=== PATIENT | female | born 1970 | race Caucasian/White ===

== ENCOUNTER 2017-12-29 20:46 | Inpatient (IN) | payer OTHER ==
--- OUTSIDE RECORDS SUMMARY | 2017-12-29 20:48 | XMS REPORT | Clinical Summary ---
:1970 Author Organization [facility] Address [address] [place] [address] Care Team Providers Name Role Phone Nomi Olea MD Primary Care Provider Allergies Active Allergy Reactions Severity Noted Date Comments Acetaminophen 04/16/2016 Celecoxib Anaphylaxis High 04/16/2016 Cephalosporins Shortness Of Breath High 04/16/2016 Cyclosporine Hives 04/16/2016 Divalproex Palpitations Low 04/16/2016 Levetiracetam Rash Low 04/16/2016 Lorazepam Anxiety Low 04/16/2016 Metoclopramide Other (See Comments) 04/16/2016 Morphine Shortness Of Breath High 04/16/2016 Oxycodone-Acetaminophen Hives 04/16/2016 Penicillins Anaphylaxis High 04/16/2016 Tetracycline Hives 04/16/2016 Tizanidine Anaphylaxis High 04/16/2016 Tramadol Shortness Of Breath High 04/16/2016 Current Medications Prescription Sig. Disp. Refills Start Date End Date Status PROAIR HFA 90 INHALE TWO (2) 1 03/10/2016 Active mcg/actuation inhaler PUFF(S) BY MOUTH EVERY FOUR HOURS NEEDED FOR WHEEZING, COUGHING OR SHORTNESS OF BREATH. clonAZEPAM (KlonoPIN) 1 TAKE ONE (1) 5 03/10/2016 Active MG tablet TABLET(S) BY MOUTH FOUR TIMES A DAY. esomeprazole (NexIUM) 40 Take 40 mg by mouth 5 03/10/2016 Active MG capsule 2 (two) times a day. potassium chloride Take 40 mEq by mouth Active (K-DUR) 20 MEQ CR tablet daily. dicyclomine (BENTYL) 10 Take 10 mg by mouth Active MG capsule 4 (four) times a day before meals and nightly. carisoprodol (SOMA) 350 Take 525 mg by mouth Active MG tablet 4 (four) times a day as needed for muscle spasms. HYDROcodone-acetaminophe Take 1 tablet by Active n (NORCO) 5-325 mg per mouth every 4 (four) tablet hours as needed for moderate pain. fluconazole (DIFLUCAN) Take 150 mg by mouth Active 100 MG tablet daily. Active Problems Problem Noted Date Hyponatremia 04/16/2016 Social History Tobacco Use Types Packs/Day Years Used Date Never Smoker Alcohol Use Drinks/Week oz/Week Comments No Sex Assigned at Date Recorded Not on file Last Filed Vital Signs Not on file Plan of Treatment Not on file Results Not on fileafter 12/28/2016 Insurance Payer Benefit Plan / Group Subscriber ID Type Phone Address [facility] CHOICE/CHOICE + xxxxxxxxx HMO/PPO Home: [address] [place], [place] [phone] [place] [id number]
--- OUTSIDE RECORDS SUMMARY | 2017-12-29 20:49 | XMS REPORT | Summary of Care ---
:1970 Author Name URIAH GRIMM M.D. Address Unavailable Unavailable , Care Team Providers Name Role Phone SIRISHA Beasley, URIAH Unavailable Unavailable Bev John M.A. Unavailable Unavailable SIRISHA [place], URIAH [place] Unavailable Unavailable Unavailable Unavailable Unavailable Functional Status Name Dates Details Functional status health issues are not documented Status: Name Dates Details Cognitive status health issues are not documented Status: Problems Name Dates Details Muscle spasm (728.85, M62.838) Status: Active Fungal infection (117.9, B49) Status: Active Asthma (493.90, J45.909) Status: Active Low grade fever (780.60, R50.9) Status: Active Cough in adult (786.2, R05) Status: Active Altered mental status (780.97, R41.82) Status: Active Abdominal tenderness (789.60, R10.819) Status: Active Chest pain (786.50, R07.9) Status: Active Rib pain (786.50, R07.81) Status: Active Blood loss (459.0, R58) Status: Active Joint pain (719.40, M25.50) Status: Active Abnormal weight gain (783.1, R63.5) Status: Active Hypothyroid (244.9, E03.9) Status: Active Abnormal laboratory test (796.4, R89.9) Status: Active Sinus infection (473.9, J32.9) Status: Active Medications Name Dates Details Carisoprodol 350 MG Oral Tablet 1 and 1/2 tab PO Q6hr Quantity: 84 Refills: 0 URIAH GRIMM M.D. Start : 06-Sep-2016 Active Nystatin 803914 UNIT/ML Mouth/Throat Suspension SWISH AND SPIT 5ML EVERY 12 HOURS . Quantity: 1 Refills: 0 URIAH GRIMM M.D. Start : 15-Sep-2016 Active 60 ML Bottle Advair Diskus 100-50 MCG/DOSE Inhalation Aerosol Powder Breath Activated INHALE 1 PUFF TWICE DAILY. Quantity: 1 Refills: 3 ARSENIO GRIMM M.D.AN Start : 13-Oct-2016 Active 60 Inhaler Pack Fluconazole 150 MG Oral Tablet TAKE 1 TABLET BY MOUTH ONE TIME ONLY Quantity: 3 Refills: 3 SIRISHA Beasley, URIAH Start : 13-Oct-2016 Active Diflucan 150 MG Oral Tablet TAKE 1 TABLET DAILY. Quantity: 10 Refills: 0 URIAH GRIMM M.D. Start : 18-Oct-2016 Active Fluconazole 150 MG Oral Tablet TAKE 1 TABLET 1 TIME ONLY. Quantity: 3 Refills: 1 SIRISHA Beasley, URIAH Start : 17-Nov-2016 Active ProAir HFA 108 (90 Base) MCG/ACT Inhalation Aerosol Solution INHALE 1 PUFF EVERY 4 HOURS NEEDED. Quantity: 3 Refills: 3 URIAH GRIMM M.D. Start : 23-Feb-2017 Active 8.5 GM Inhaler LevoFLOXacin 500 MG Oral Tablet TAKE 1 TABLET DAILY DIRECTED. Quantity: 10 Refills: 0 URIAH GRIMM M.D. Start : 23-Feb-2017 Active Ciprofloxacin HCl - 500 MG Oral Tablet TAKE 1 TABLET TWICE DAILY. Quantity: 10 Refills: 0 URIAH GRIMM M.D. Start : 19-Jun-2017 Active Lidocaine Viscous 2 % Mouth/Throat Solution USE 5ML EVERY 2 HOURS NEEDED. Quantity: 1 Refills: 0 URIAH GRIMM M.D. Start : 18-Oct-2017 Active 15 ML Bottle Allergies and Adverse Reactions Name Dates Details Penicillins (Allergy) Status: Active sulfa (Allergy) Status: Active Procedures Procedure Dates Details Procedures not documented Immunization Name Dates Details Immunizations not documented Social History Name Dates Details Unknown if ever smoked Vital Signs Date Test Result Details No Known Vitals to report Results Date Description Value Details Results not documented Plan of Care Name Dates Details Planned Observations Planned Goals not documented Interventions Provided Medication ChangesCarisoprodol 350 MG Oral Tablet - Renew Instructions Name Dates Details Instructions not documented Encounters Appointment; URIAH GRIMM M.D. On: 21-Aug-2016 16:00 Encounter Diagnosis: Problem not documented Appointment; URIAH GRIMM M.D. On: 03-Nov-2016 14:30 Encounter Diagnosis: Problem not documented Appointment; URIAH GRIMM M.D. On: 01-Jan-2017 16:00 Encounter Diagnosis: Problem not documented Appointment; URIAH GRIMM M.D. On: 05-Mar-2017 16:00 Encounter Diagnosis: Problem not documented Appointment; URIAH GRIMM M.D. On: 21-May-2017 15:30 Encounter Diagnosis: Problem not documented Appointment; URIAH GRIMM M.D. On: 20-Jun-2017 11:30 Encounter Diagnosis: Problem not documented Appointment; URIAH GRIMM M.D. On: 03-Aug-2017 14:30 Encounter Diagnosis: Problem not documented
[2017-12-29] MEDS ORDERED: ONDANSETRON 4 MG/2 ML VIAL ONE (22:11)
[2017-12-29 22:17] LABS: Absolute Lymphocytes (CBC) 3.4 K/uL (0.7-4.9); Absolute Monocytes 0.7 K/uL (0.1-1.3); Basophils % 1.4 % (0-1.3); Hematocrit 35.1 % (36.0-45.0); Lymphocytes % 36.7 % (15.3-44.8); MCH 28.1 pg (27.0-35.0); MCV 85.8 fL (80-100); MPV 7.4 fL (7.6-11.3); Monocytes % 7.2 % (3.3-12.3); RBC Red Blood Cell Count 4.09 M/uL (3.86-4.86)
[2017-12-29 22:23] LABS: Protime INR 0.93
[2017-12-29 22:35] LABS: Anisocytosis 1+; Blood Morphology Comment NOTED (NOT SEEN); Platelet Estimate ADEQ; Urine White Blood Cell Casts OK
[2017-12-29 23:17] LABS: Glucose Level 81 mg/dL (65-120)
[2017-12-29 23:23] LABS: ALT/SGPT 40 IU/L (10-60); AST/SGOT 30 IU/L (10-42); Albumin 3.4 g/dL (3.2-5.5); Alkaline Phosphatase 58 IU/L (42-121); BUN Blood Urea Nitrogen 8 mg/dL (6-20); Bilirubin Direct 0.2 mg/dL (0-0.2); Bilirubin Total 0.5 mg/dL (0.3-1.2); Creatine Phosphokinase 51 IU/L (22-269); Magnesium 1.6 mg/dL (1.8-2.5); Protein, Total 5.9 g/dL (6.0-8.3)
[2017-12-29 23:24] LABS: Bicarbonate 19 mEq/L (21-31); CKMB Creatine Kinase MB 0.8 ng/ml (0.3-4.0); Potassium 3.3 mEq/L (3.6-5.0); Sodium Level 120 mEq/L (135-145)
--- NOTE | 2017-12-30 00:33 | EDPHYS ---
Physician Documentation [facility] Name: Lianne Medina Age: 47 yrs Sex: Female : 1970 Arrival Date: 12/29/2017 Time: 20:52 Bed 19 Private MD: ED Physician Chandler Gastelum HPI: 12/31 01:07 This 47 yrs old Female presents to ER via Wheelchair with complaints of tw4 Fever, Nausea/Vomiting/Diarrhea. 01:07 The patient reports fever, not measured (subjective). Onset: The symptoms/episode tw4 began/occurred yesterday. Modifying factors: there are no obvious modifying factors. Associated signs and symptoms: Pertinent positives: altered mental status,\E\ arthralgias. Severity of symptoms: At their worst the symptoms were moderate in the emergency department the symptoms are unchanged. The patient has not experienced similar symptoms in the past. 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-menopause tl3 Historical: - Allergies: 21:17 ACETAMINOPHEN; tl3 21:17 Celecoxib; tl3 21:17 cyclobenzaprine HCl; tl3 21:17 CYCLOSPORINE; tl3 21:17 divalproex; tl3 21:17 levetiracetam; tl3 21:17 Lorazepam; tl3 21:17 METOCLOPRAMIDE; tl3 21:17 NSAIDS (Non-Steroidal Anti-Inflammatory Drug); tl3 21:17 Oxycodone HCl; tl3 21:17 PENICILLINS; tl3 21:17 Sulfa (Sulfonamide Antibiotics); tl3 21:17 TETRACYCLINES; tl3 21:17 Tizanidine; tl3 21:17 tramadol; tl3 - Home Meds: 21:17 Nexium Oral [Active]; Soma Oral [Active]; Hydrocodone-Acetaminophen Oral [Active]; tl3 - PMHx: 21:17 brain tumor x 5; Cancer; Multiple Sclerosis; prolapsed bladder; tl3 - Immunization history:: Adult Immunizations up to date. - Social history:: Smoking status: Patient/guardian denies using tobacco, never smoked. - Ebola Screening: : Patient denies travel to an Ebola-affected area in the 21 days before illness onset. ROS: 12/31 01:07 Constitutional: Negative for fever, chills, and weight loss, Cardiovascular: Negative tw4 for chest pain, palpitations, and edema, Respiratory: Negative for shortness of breath, cough, wheezing, and pleuritic chest pain, MS/Extremity: Negative for injury and deformity, Skin: Negative for injury, rash, and discoloration. Abdomen/GI: Positive for abdominal pain, nausea, vomiting, diarrhea. Exam: 01:07 Constitutional: This is a well developed, well nourished patient who is awake, alert, tw4 and in no acute distress. Head/Face: Normocephalic, atraumatic. Chest/axilla: Normal chest wall appearance and motion. Nontender with no deformity. No lesions are appreciated. Cardiovascular: Regular rate and rhythm with a normal S1 and S2. No gallops, murmurs, or rubs. Normal PMI, no JVD. No pulse deficits. Respiratory: Lungs have equal breath sounds bilaterally, clear to auscultation and percussion. No rales, rhonchi or wheezes noted. No increased work of breathing, no retractions or nasal flaring. Abdomen/GI: Soft, non-tender, with normal bowel sounds. No distension or tympany. No guarding or rebound. No evidence of tenderness throughout. MS/ Extremity: Pulses equal, no cyanosis. Neurovascular intact. Full, normal range of motion. Neuro: Awake and alert, GCS 15, oriented to person, place, time, and situation. Cranial nerves II-XII grossly intact. Motor strength 5/5 in all extremities. Sensory grossly intact. Cerebellar exam normal. Normal gait. Vital Signs: 12/29 21:17 BP 128 / 87; Pulse 91; Resp 20; Temp 97.7(T); Pulse Ox 90% ; Weight 90.72 kg; Height 4 tl3 ft. 11 in. (149.86 cm); 23:00 BP 136 / 88; Pulse 64; Resp 20; Pulse Ox 93% on R/A; mb3 12/30 00:30 BP 120 / 83; Pulse 66; Resp 20; Pulse Ox 91% on R/A; mb3 02:07 BP 101 / 62; Pulse 62; Resp 20; Pulse Ox 93% on R/A; mb3 12/29 21:17 Body Mass Index 40.39 (90.72 kg, 149.86 cm) tl3 MDM: 12/29 21:44 Patient medically screened. tw4 12/31 01:07 Differential diagnosis: viral Infection, bacterial infection, URI. Data reviewed: vital tw4 signs, nurses notes. Counseling: I had a detailed discussion with the patient and/or guardian regarding: the historical points, exam findings, and any diagnostic results supporting the discharge/admit diagnosis. Physician consultation: Alberta Reed MD regarding admission, patient's condition, need to come to ED to see patient, and will see patient in inpatient room. Admission orders: after a detailed discussion of the patient's condition and case, the admit orders are written by me. ED course: pt received IVF hydration and states that he feels better. 12/29 21:55 Order name: Basic Metabolic Panel; Complete Time: 23:52 12/29 23:52 Interpretation: Normal except: NA 120; CL 93; CO2 19; K 3.3; CA 7.4. 12/29 21:55 Order name: BNP; Complete Time: 23:07 12/29 23:07 Interpretation: BNP 16. 12/29 21:55 Order name: CBC with Diff; Complete Time: 23:07 12/29 23:07 Interpretation: HGB 11.5; MCV 85.8; HCT 35.1; BASO% 1.4; MPV 7.4; RDW 21.3. 12/29 21:55 Order name: Ckmb; Complete Time: 23:52 12/29 21:55 Order name: CPK; Complete Time: 23:52 12/29 21:55 Order name: LFT's; Complete Time: 23:52 12/29 23:52 Interpretation: Normal except: TP 5.9. 12/29 21:55 Order name: Magnesium; Complete Time: 23:52 12/29 21:55 Order name: PT-INR; Complete Time: 23:07 12/29 23:53 Interpretation: Within normal limits: PT 11.0. 12/29 21:55 Order name: Ptt, Activated; Complete Time: 23:07 12/29 21:55 Order name: Troponin (emerg Dept Use Only); Complete Time: 23:52 12/29 21:55 Order name: XRAY Chest (1 view) 12/29 21:55 Order name: D-Dimer; Complete Time: 23:07 rust 12/29 23:53 Interpretation: Within normal limits: D-DIMER 279. tw4 12/29 22:35 Order name: CBC Smear Scan; Complete Time: 23:07 [facility] 12/30 00:16 Order name: Urine Dipstick--Ancillary (enter results) mo 12/29 21:55 Order name: EKG; Complete Time: 21:56 rust 12/29 21:55 Order name: Cardiac monitoring; Complete Time: 00:40 rust 12/29 21:55 Order name: EKG - Nurse/Tech; Complete Time: 00:40 tw 12/29 21:55 Order name: IV Saline Lock; Complete Time: 00:40 rust 12/29 21:55 Order name: Labs collected and sent; Complete Time: 00:40 rust 12/29 21:55 Order name: O2 Per Protocol; Complete Time: 00:40 rust 12/29 21:55 Order name: O2 Sat Monitoring; Complete Time: 00:40 rust 12/29 21:55 Order name: Urine Dipstick-Ancillary (obtain specimen); Complete Time: 00:40 rust 12/29 21:58 Order name: CT Chest For PE Angio tw4 Administered Medications: 12/29 22:13 Drug: Zofran 4 mg Route: IVP; Site: left antecubital; mb3 Disposition: 12/30/17 00:32 Hospitalization ordered by Alberta Reed for Inpatient Admission. Preliminary diagnosis is Hypo-osmolality and hyponatremia. - Bed requested for Telemetry/MedSurg (Inpatient). - Status is Inpatient Admission. mb3 - Condition is Stable. - Problem is new. - Symptoms have improved. UTI on Admission? No Signatures: Dispatcher [employer] EDCO Shelly Wilcox RN RN kl Wadley, Terrence, MD MD tw4 Edilma Abbasi RN RN tl3 Jozef Madrid RN RN mb3 Corrections: (The following items were deleted from the chart) 23:52 23:52 NA 120; CL 93; CO2 19; K 3.3; CA 7.4. 4 12/30 01:58 00:32 Hospitalization Ordered by Alberta Reed MD for Inpatient Admission. Preliminary kl diagnosis is Hypo-osmolality and hyponatremia. Bed requested for Telemetry/MedSurg (Inpatient). Status is Inpatient Admission. Condition is Stable. Problem is new. Symptoms have improved. UTI on Admission? No. tw4 02:33 01:58 12/30/2017 00:32 Hospitalization Ordered by Alberta Reed MD for Inpatient mb3 Admission. Preliminary diagnosis is Hypo-osmolality and hyponatremia. Bed requested for Telemetry/MedSurg (Inpatient). Status is Inpatient Admission. Condition is Stable. Problem is new. Symptoms have improved. UTI on Admission? No. kl
--- NOTE | 2017-12-30 00:33 | ER ---
Nurse's Notes [facility] Name: Lianne Medina Age: 47 yrs Sex: Female : 1970 Arrival Date: 12/29/2017 Time: 20:52 Bed 19 Private MD: Diagnosis: Hypo-osmolality and hyponatremia Presentation: 12/29 21:13 Presenting complaint: Patient states: vomiting and diarrhea for one week, decreased tl3 tolerance of foods or liquids, decreased urine output. Transition of care: patient was not received from another setting of care. Onset of symptoms was December 23, 2017. Risk Assessment: Do you want to hurt yourself or someone else? Patient reports no desire to harm self or others. Initial Sepsis Screen: Does the patient meet any 2 criteria? No. Patient's initial sepsis screen is negative. Does the patient have a suspected source of infection? No. Patient's initial sepsis screen is negative. Care prior to arrival: None. 21:13 Method Of Arrival: Wheelchair tl3 21:13 Acuity: BRANDEN 3 tl3 Triage Assessment: 21:17 General: Appears distressed, uncomfortable, unkempt, Behavior is cooperative. 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-menopause tl3 Historical: - Allergies: 21:17 ACETAMINOPHEN; tl3 21:17 Celecoxib; tl3 21:17 cyclobenzaprine HCl; tl3 21:17 CYCLOSPORINE; tl3 21:17 divalproex; tl3 21:17 levetiracetam; tl3 21:17 Lorazepam; tl3 21:17 METOCLOPRAMIDE; tl3 21:17 NSAIDS (Non-Steroidal Anti-Inflammatory Drug); tl3 21:17 Oxycodone HCl; tl3 21:17 PENICILLINS; tl3 21:17 Sulfa (Sulfonamide Antibiotics); tl3 21:17 TETRACYCLINES; tl3 21:17 Tizanidine; tl3 21:17 tramadol; tl3 - Home Meds: 21:17 Nexium Oral [Active]; Soma Oral [Active]; Hydrocodone-Acetaminophen Oral [Active]; tl3 - PMHx: 21:17 brain tumor x 5; Cancer; Multiple Sclerosis; prolapsed bladder; tl3 - Immunization history:: Adult Immunizations up to date. - Social history:: Smoking status: Patient/guardian denies using tobacco, never smoked. - Ebola Screening: : Patient denies travel to an Ebola-affected area in the 21 days before illness onset. Screenin:54 Abuse screen: Denies threats or abuse. Nutritional screening: No deficits noted. mb3 Tuberculosis screening: No symptoms or risk factors identified. Fall Risk Fall in past 12 months (25 points). Secondary diagnosis (15 points) IV access (20 points). Ambulatory Aid- Crutches/Cane/Walker (15 pts). Gait- Impaired (20 pts.). Mental Status- Overestimates/Forgets Limitations (15 pts.). Total Reyes Fall Scale indicates High Risk Score (45 or more points). Fall prevention measures have been instituted. Side Rails Up X 2 Placed Close to Nursing Station Frequent Obs/Assessments Occuring Family Present and informed to notify staff if the need to leave the bedside. Assessment: 23:37 General: Appears uncomfortable, ill, obese, Behavior is cooperative, anxious, mb3 scattered. Pain: Complains of pain in initially did not report any pain, after assessment started complaining of pain all over, especially her back from lesions in her cranial nerves. Neuro: Level of Consciousness is awake, alert, confused, Oriented to person, place, time, situation. Cardiovascular: Heart tones S1 S2 present Capillary refill < 3 seconds Patient's skin is warm and dry. Respiratory: Airway is patent Respiratory effort is even, unlabored, shallow, Respiratory pattern is regular, symmetrical, Breath sounds are clear bilaterally. GI: Abdomen is round Pt is actively vomiting clear fluid, Bowel sounds hyperactive in right upper quadrant, left upper quadrant, right lower quadrant and left lower quadrant Abdomen is tender to palpation X 4 quads. : Reports urine smelling very strong. 12/30 00:50 Reassessment: No changes from previously documented assessment. Patient and/or family mb3 updated on plan of care and expected duration. Pain level reassessed. Patient is alert, oriented x 3, equal unlabored respirations, skin warm/dry/pink. Patient states symptoms have not improved. 00:50 Reassessment:. mb3 Vital Signs: 12/29 21:17 BP 128 / 87; Pulse 91; Resp 20; Temp 97.7(T); Pulse Ox 90% ; Weight 90.72 kg; Height 4 tl3 ft. 11 in. (149.86 cm); 23:00 BP 136 / 88; Pulse 64; Resp 20; Pulse Ox 93% on R/A; mb3 12/30 00:30 BP 120 / 83; Pulse 66; Resp 20; Pulse Ox 91% on R/A; mb3 02:07 BP 101 / 62; Pulse 62; Resp 20; Pulse Ox 93% on R/A; mb3 12/29 21:17 Body Mass Index 40.39 (90.72 kg, 149.86 cm) tl3 ED Course: 12/29 20:52 Patient arrived in ED. al2 21:16 Triage completed. tl3 21:17 Arm band placed on left wrist. tl3 21:44 Chandler Leung MD is Attending Physician. tw4 21:51 Jozef Madrid, VITA is Primary Nurse. mb3 22:14 X-ray completed. Portable x-ray completed in exam room. Patient tolerated procedure mh1 well. 22:15 Note: ok to scan w/o labs or upt per dr leung. cw1 22:16 XRAY Chest (1 view) In Process Unspecified. EDMS 22:38 CT Chest For PE Angio In Process Unspecified. EDMS 23:00 Inserted saline lock: 22 gauge in left antecubital area, using aseptic technique. Blood mb3 collected. 23:45 Patient has correct armband on for positive identification. Placed in gown. Bed in low mb3 position. Call light in reach. Side rails up X 1. chemical process engineer on. Pulse ox on. NIBP on. 12/30 00:31 Alberta Reed MD is Hospitalizing Provider. tw4 02:08 No provider procedures requiring assistance completed. mb3 02:15 Patient admitted, IV remains in place. mb3 Administered Medications: 12/29 22:13 Drug: Zofran 4 mg Route: IVP; Site: left antecubital; mb3 Outcome: 12/30 00:32 Decision to Hospitalize by Provider. tw4 02:09 Admitted to Med/surg accompanied by carolynn, via stretcher, room 203, with chart, Report mb3 called to Felipe Felder RN 02:10 Condition: stable mb3 02:10 Instructed on the need for admit. 02:33 Patient left the ED. mb3 Signatures: Dispatcher [employer] EDMS Maria Del Rosario Novoa mh1 Sol Angeles cw1 Vickie Malhotra al2 Chandler Leung MD MD tw4 Edilma Abbasi, RN RN tl3 Jozef Madrid RN RN mb3
[2017-12-30 00:40] LABS: Urine Blood NEGATIVE (NEG); Urine Glucose TRACE (NEG); Urine Protein NEGATIVE (NEG); Urine Specific Gravity 1.015 (1.005-1.030)
--- NOTE | 2017-12-30 01:32 | P.HP ---
Certification for Inpatient Patient admitted to: Inpatient With expected LOS: >2 Midnights Practitioner: I am a practitioner with admitting privileges, knowledge of patient current condition, hospital course, and medical plan of care. Services: Services provided to patient in accordance with Admission requirements found in Title 42 Section 412.3 of the Code of Federal Regulations Patient History Date of Service: 12/30/17 Reason for admission: hyponatremia, nausea and vomiting History of Present Illness: Ms Medina is a 47 years old woman with history of MS, hyponatremia, who came to the hospital complaining of nausea, vomiting and diarrhea for 1 week. She is very difficult to do a directed interview and realize what exactly are her current symptoms and when do they start. She states that has fever every day due to MS, and has not been different lately. In ER she was hypoxic, O2 Sat 90% . She had a CTA chest which was negative for PE or any infiltrate. Lab work was again remarkable for hyponatremia, at this time sodium level is 120, she is also hypokalemic. Allergies cyclobenzaprine HCl [From Flexeril] Allergy (Intermediate, Verified 09/29/16 18: 12) sob NSAIDS (Non-Steroidal Anti-Inflamma Allergy (Intermediate, Verified 09/29/16 18: 12) sob, edema Sulfa (Sulfonamide Antibiotics) [Sulfa(Sulfonamide Antibiotics)] Allergy ( Intermediate, Verified 09/29/16 18:12) anaphalxis tramadol HCl [From Ultram] Allergy (Intermediate, Verified 09/29/16 18:12) hives, sob Penicillins Allergy (Mild, Verified 09/29/16 18:12) anaphalxis tetracycline [Tetracycline] Allergy (Mild, Verified 09/29/16 18:12) anaphalyxis acetaminophen Allergy (Verified 09/29/16 18:13) Unknown celecoxib Allergy (Verified 09/29/16 18:13) Unknown levetiracetam Allergy (Verified 09/29/16 18:13) Unknown lorazepam Allergy (Verified 09/29/16 18:13) Unknown morphine Allergy (Verified 09/29/16 18:13) Unknown Tetracyclines Allergy (Verified 09/29/16 18:13) Unknown tizanidine Allergy (Verified 09/29/16 18:13) Unknown tramadol Allergy (Verified 09/29/16 18:13) Unknown CY Allergy (Mild, Uncoded 08/21/17 18:23) Unknown Tramadol HCl Allergy (Mild, Uncoded 09/29/16 19:10) Unknown CYCLO Allergy (Uncoded 09/29/16 19:10) Unknown CYCLOS Allergy (Uncoded 09/29/16 18:13) Unknown CYCLOSPORINE Allergy (Uncoded 09/29/16 18:13) Unknown divalproex Allergy (Uncoded 09/29/16 18:13) Unknown levetiraceta Allergy (Uncoded 09/29/16 18:13) Unknown METOCLOPRAMIDE Allergy (Uncoded 09/29/16 18:13) Unknown mo Allergy (Uncoded 09/29/16 18:12) Unknown NSAIDS (Non Allergy (Uncoded 09/29/16 18:12) Unknown NSAIDS (Non-S Allergy (Uncoded 09/29/16 18:12) Unknown NSAIDS (Non-Steroi Allergy (Uncoded 09/29/16 19:10) Unknown Oxycodone HCl Allergy (Uncoded 09/29/16 18:12) Unknown Tramadol HC Allergy (Uncoded 09/29/16 18:12) Unknown Home Medications: Albuterol Sulfate [Proair Hfa] 8.5 gm IH Q6H 09/29/16 Carisoprodol [Soma*] 350 mg PO Q6H 09/29/16 Clonazepam [Klonopin*] 1 mg PO QID 09/29/16 Esomeprazole Magnesium 40 mg PO DAILY 09/29/16 Fluconazole [Diflucan] 150 mg PO DAILY 09/29/16 Fluticasone/Salmeterol [Advair 100/50 Diskus*] 2 disk XX BID 09/29/16 Nitrofurantoin Monohyd/M-Cryst [Nitrofurantoin Page-Mcr 100 mg] 100 mg PO BID Nystatin 5 ml PO Q12H 09/29/16 Promethazine HCl 25 mg PO Q6H PRN 09/29/16 Levofloxacin [Levaquin] 500 mg PO DAILY #10 tab 10/01/16 - Past Medical/Surgical History Diabetic: No -: cancer -: prlapsed bladder -: brain tumor x 5 -: MS Past Surgical History: Reviewed- Non-Contributory - Family History Father -: Hypertension Mother -: Other (see notes) Notes: thyroid problems - Social History Alcohol use: No CD- Drugs: No Caffeine use: No Place of Residence: Home Review of Systems 10-point ROS is otherwise unremarkable Physical Examination - Physical Exam General: Alert, In no apparent distress HEENT: Atraumatic, PERRLA, Mucous membr. moist/pink, EOMI, Sclerae nonicteric Neck: Supple, 2+ carotid pulse no bruit, No LAD, Without JVD or thyroid abnormality Respiratory: Clear to auscultation bilaterally, Normal air movement Cardiovascular: Regular rate/rhythm, Normal S1 S2 Gastrointestinal: Normal bowel sounds, No tenderness Musculoskeletal: No tenderness Integumentary: No rashes Neurological: Normal speech, Normal strength at 5/5 x4 extr, Normal tone, Normal affect Lymphatics: No axilla or inguinal lymphadenopathy - Studies Laboratory Data (last 24 hrs) 12/29/17 22:49: Sodium 120 L, Potassium 3.3 L, BUN 8, Creatinine 0.56, Glucose 81, Magnesium 1.6 L D, Total Bilirubin 0.5, AST 30, ALT 40, Alkaline Phosphatase 58 12/29/17 22:05: PT 11.0, INR 0.93, APTT 26.0 12/29/17 22:05: WBC 9.3, Hgb 11.5 L, Hct 35.1 L, Plt Count 243 12/29/17 22:05: B-Natriuretic Peptide 16 Assessment and Plan - Problems (Diagnosis) (1) Hyponatremia Current Visit: Yes Status: Acute (2) Diarrhea Current Visit: Yes Status: Acute Qualifiers: Diarrhea type: unspecified type Qualified Code(s): R19.7 - Diarrhea, unspecified (3) Gastroenteritis Current Visit: Yes Status: Acute - Plan Ms Medina will be admitted to the hospital due to gastroenteritis. She is symptomatic for nausea, dry heaves and diarrhea. Will check C.Diff. Will continue with IV fluids, and symptomatic medications for nausea. Hyponatremia is not new, will order serum and urine osmolality, will consult Nephrology for evaluation and recommendations. - Advance Directives Does patient have a Living Will: No Does patient have a Durable POA for Healthcare: No - Code Status/Comfort Care Code Status Assessed: Yes Code Status: Full Code
[2017-12-30] MEDS ORDERED: MORPHINE 2 MG/ML SYR IV PRN (02:03)
[2017-12-30] MEDS ORDERED: ONDANSETRON 4 MG/2 ML VIAL IV PRN (02:03)
[2017-12-30] MEDS ORDERED: ACETAMINOPHEN 500 MG TAB PO PRN (02:03)
[2017-12-30] MEDS: NA CHLORIDE 0.9% 1,000 ML IV SCH ×2 (02:40→11:33)
[2017-12-30] MEDS ORDERED: Morphine 2 MG/2 ML SYR ONE (02:53)
[2017-12-30 04:41] VITALS: BMI 38.0
[2017-12-30 05:34] LABS: BUN Blood Urea Nitrogen 7 mg/dL (6-20); Glucose Level 97 mg/dL (65-120); Magnesium 1.8 mg/dL (1.8-2.5)
[2017-12-30 05:36] LABS: Bicarbonate 24 mEq/L (21-31); Potassium 3.4 mEq/L (3.6-5.0); Sodium Level 120 mEq/L (135-145)
[2017-12-30] MEDS ORDERED: MAGNESIUM SULFATE 1 gm IVPB 1 GM/100 ML BAG IV ONE (06:18)
[2017-12-30] MEDS ORDERED: POTASSIUM 25 MEQ EFFERV TAB PO ONE (06:19)
[2017-12-30] MEDS ORDERED: Morphine 2 MG/2 ML SYR IV PRN (08:02)
[2017-12-30] MEDS ORDERED: ENOXAPARIN 40 MG/0.4 ML SQ SCH (09:00)
--- NOTE | 2017-12-30 09:13 | RAD REPORT ---
EXAM DESCRIPTION: CT - Chest For Pe Angio - 12/29/2017 10:38 pm CLINICAL HISTORY: sob COMPARISON: None. TECHNIQUE: Dynamically enhanced axial 3 mm thick images of the chest were obtained during administra tion of <100> mL Isovue 370 IV contrast. Coronal and oblique reconstruction images were generated and reviewed. Exam utilizes a protocol for optimal evaluation of pulmonary arterial tree. A preliminary report was generated by virtual radiologic and reviewed prior to this dictation tissue All CT scans are performed using dose optimization technique as appropriate and may include automated exposure control or mA/KV adjustment according to patient size. FINDINGS: A pulmonary embolus is not seen. A thoracic aortic aneurysm is not noted. A pleural effusion is not seen. A pericardial effusion is not seen. A lung consolidation is not present. IMPRESSION: Negative for a pulmonary embolism.
[2017-12-30 09:51] VITALS: O2SAT 89
--- NOTE | 2017-12-30 10:20 | RAD REPORT ---
EXAM DESCRIPTION: [place] Single View12/29/2017 10:16 pm CLINICAL HISTORY: sob COMPARISON: September 2016 FINDINGS: The lungs appear clear of acute infiltrate. The heart is normal size IMPRESSION: No acute abnormalities displayed
[2017-12-30] MEDS ORDERED: HYDROCODONE/APAP 5/325 MG TAB PO PRN (10:53)
[2017-12-30 12:17] LABS: BUN Blood Urea Nitrogen 6 mg/dL (6-20); Bicarbonate 25 mEq/L (21-31); Glucose Level 111 mg/dL (65-120); Potassium 4.2 mEq/L (3.6-5.0); Sodium Level 122 mEq/L (135-145)
[2017-12-30 14:21] VITALS: BP 117/70; TEMP 97.6
[2017-12-30 15:00] LABS: Urine Appearance CLOUDY; Urine Blood NEGATIVE (NEG); Urine Color OTHER; Urine Glucose NEGATIVE (NEG); Urine Protein NEGATIVE (NEG); Urine Specific Gravity 1.025 (1.005-1.030)
[2017-12-30 15:18] LABS: Urine Bilirubin NEGATIVE (NEG); Urine Microscopic Reflex ORDER UMIC
[2017-12-30 15:26] LABS: Urine Amorphous Sediment 1+ /HPF (NONE SEEN); Urine Bacteria >50 /HPF (<20); Urine Culture Reflex Order REFLEXED; Urine RBC <5 /HPF (NONE SEEN)
== END 2017-12-30 15:06 | disposition home or self-care (01) | DRG 392 ==
LOC: ER 20:46 → ERHOLD 12-30 00:34 → 2ND 12-30 02:10
PROVIDERS: ADMIT Internal Medicine; ATTEND Internal Medicine
DX: K52.9 Noninfective gastroenteritis and colitis, unspecified (principal); E87.1 Hypo-osmolality and hyponatremia; E87.6 Hypokalemia; G35 Multiple sclerosis; Z88.0 Allergy status to penicillin; Z88.2 Allergy status to sulfonamides
CPT/HCPCS: 36415; 71045; 71275; 80048; 80076; 81003; 81015; 82550; 82553; 82962; 83735; 83880; 83930; 83935; 84484; 85025; 85379; 85610; 85730; 87077; 87086; 87088; 87186; 96374; 99285; J1650; J2270; J2405; J3475; J7030; Q9967

== ENCOUNTER 2018-04-03 00:15 | Observation (INO) | payer OTHER ==
--- OUTSIDE RECORDS SUMMARY | 2018-04-03 00:17 | XMS REPORT | Clinical Summary ---
:1970 Author Organization [facility] Address [address] [place] [address] Care Team Providers Name Role Phone Nomi [...] Not on file Results Not on fileafter 04/02/2017 Insurance Payer Benefit Plan / Group Subscriber ID Type Phone Address [facility] CHOICE/CHOICE + xxxxxxxxx HMO/PPO Home: [address] [place], [place] [phone] [place] [id number]
--- OUTSIDE RECORDS SUMMARY | 2018-04-03 00:17 | XMS REPORT | Summary of Care ---
:1970 Author Name URIAH GRIMM M.D. Address Unavailable Unavailable , Care Team Providers Name Role Phone SIRISHA Beasley, URIAH Unavailable Unavailable Bev John M.A. Unavailable Unavailable SIRISHA [place], URIAH [place] Unavailable Unavailable Unavailable Unavailable Unavailable [...] Active Sinus infection (473.9, J32.9) Status: Active Throat symptom (784.99, R68.89) Status: Active Medications Name Dates Details Carisoprodol 350 MG Oral Tablet 1 and 1/2 tab PO Q6hr Quantity: 84 Refills: 0 URIAH GRIMM M.D. Start : 06-Sep-2016 Active Nystatin 241317 UNIT/ML Mouth/Throat Suspension SWISH AND SPIT 5ML EVERY 12 HOURS . Quantity: 1 Refills: 0 URIAH GRIMM M.D. Start : 15-Sep-2016 Active 60 ML Bottle Advair Diskus 100-50 MCG/DOSE Inhalation Aerosol Powder Breath Activated INHALE 1 PUFF TWICE DAILY. Quantity: 1 Refills: 3 URIAH GRIMM M.D. Start : 13-Oct-2016 Active 14 Each Pack Fluconazole 150 MG Oral Tablet TAKE 1 TABLET BY MOUTH ONE TIME ONLY Quantity: 3 Refills: 3 SIRISHA Beasley, URIAH Start : 13-Oct-2016 Active Diflucan 150 MG Oral Tablet TAKE 1 TABLET DAILY. Quantity: 10 Refills: 0 URIAH GRIMM M.D. Start : 18-Oct-2016 Active Fluconazole 150 MG Oral Tablet TAKE 1 TABLET 1 TIME ONLY. Quantity: 3 Refills: 1 URIAH GRIMM M.D. Start : 17-Nov-2016 Active ProAir HFA 108 (90 Base) MCG/ACT Inhalation Aerosol Solution INHALE 1 PUFF EVERY 4 HOURS NEEDED. Quantity: 3 Refills: 3 URIAH GRIMM M.D. Start : 23-Feb-2017 Active 8.5 GM Inhaler LevoFLOXacin 500 MG Oral Tablet TAKE 1 TABLET DAILY DIRECTED. Quantity: 7 Refills: 0 URIAH GRIMM M.D. Start : [...]
[2018-04-03] MEDS ORDERED: NA CHLORIDE 0.9% 1,000 ML ONE (00:42)
[2018-04-03] MEDS ORDERED: ONDANSETRON 4 MG/2 ML VIAL ONE ×2 (00:42→04:30)
[2018-04-03] MEDS ORDERED: PROMETHAZINE 25 MG/ML VIAL ONE ×2 (01:22→03:29)
[2018-04-03 01:28] LABS: ALT/SGPT 71 U/L (12-78); AST/SGOT 46 U/L (15-37); Albumin 4.3 g/dL (3.4-5.0); Alkaline Phosphatase 114 U/L (45-117); BUN Blood Urea Nitrogen 7 mg/dL (7-18); Bicarbonate 21 mmol/L (21-32); Bilirubin Direct 0.2 mg/dL (0-0.2); Bilirubin Total 0.6 mg/dL (0.2-1.0); Glucose Level 99 mg/dL (74-106); Lipase 119 U/L (73-393); Potassium 4.1 mmol/L (3.5-5.1); Protein, Total 8.5 g/dL (6.4-8.2); Sodium Level 127 mmol/L (136-145)
[2018-04-03 01:30] LABS: Absolute Lymphocytes (CBC) 1.3 K/uL (0.7-4.9); Absolute Monocytes 0.5 K/uL (0.1-1.3); Absolute Neutrophil 7.2 K/uL (1.8-8.0); Basophils % 0.4 % (0-1.3); Eosinophils % 0.1 % (0-4.4); Hematocrit 43.6 % (36.0-45.0); Lymphocytes % 14.2 % (15.3-44.8); MCH 31.1 pg (27.0-35.0); MCV 93.5 fL (80-100); MPV 8.1 fL (7.6-11.3); Monocytes % 5.4 % (3.3-12.3); RBC Red Blood Cell Count 4.66 M/uL (3.86-4.86)
[2018-04-03] MEDS ORDERED: MEPERIDINE HCL 50 MG/ML AMP ONE (02:28)
[2018-04-03 03:43] LABS: Urine Bacteria <20 /HPF (<20); Urine Culture Reflex Order REFLEXED
[2018-04-03 03:44] LABS: Urine Blood TRACE (NEG); Urine Glucose NEGATIVE (NEG); Urine Protein NEGATIVE (NEG); Urine Specific Gravity <1.005 (1.005-1.030); Urine pH 6.5 (5.0-7.0)
[2018-04-03] MEDS ORDERED: NITROFURAN MACRO 100 MG CAP PO ONE (04:30)
--- NOTE | 2018-04-03 05:00 | ER ---
Nurse's Notes [facility] Name: Lianne Medina Age: 47 yrs Sex: Female : 1970 Arrival Date: 04/03/2018 Time: 00:19 Bed 20 Private MD: Diagnosis: Vomiting;Urinary tract infection, site not specified;Intractable vomiting Presentation: 04/03 00:45 Presenting complaint: Patient states: Vomiting and diarrhea x 3 days, states feeling lp1 pain to right shoulder; Patient states unable to tolerating food or liquid, states feeling like neck is swollen, pain to upper abdomen. Transition of care: patient was not received from another setting of care. Onset of symptoms was April 03, 2018. Risk Assessment: Do you want to hurt yourself or someone else? Patient reports no desire to harm self or others. Initial Sepsis Screen: Does the patient meet any 2 criteria? No. Patient's initial sepsis screen is negative. Does the patient have a suspected source of infection? No. Patient's initial sepsis screen is negative. Care prior to arrival: None. 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 LMP N/A - Post-menopause lp1 Historical: - Allergies: 00:58 ACETAMINOPHEN; lp1 00:58 Celecoxib; lp1 00:58 cyclobenzaprine HCl; lp1 00:58 CYCLOSPORINE; lp1 00:58 divalproex; lp1 00:58 levetiracetam; lp1 00:58 Lorazepam; lp1 00:58 METOCLOPRAMIDE; lp1 00:58 NSAIDS (Non-Steroidal Anti-Inflammatory Drug); lp1 00:58 Oxycodone HCl; lp1 00:58 PENICILLINS; lp1 00:58 Sulfa (Sulfonamide Antibiotics); lp1 00:58 TETRACYCLINES; lp1 00:58 Tizanidine; lp1 00:58 tramadol; lp1 01:02 Fentanyl; lp1 - Home Meds: 00:58 Nexium 40 mg oral cpDR 2 times per day [Active]; Klonopin 1 mg Oral tab four times a lp1 day [Active]; Soma 350 mg oral tab 1.5 tab four times a day [Active]; hydrocodone-acetaminophen 5-300 mg oral tab 2 tabs every 4 hours [Active]; promethazine 25 mg Oral tab 1 tab every 6 hours [Active]; potassium chloride 20 mEq Oral TbER 3 tab once daily [Active]; Bentyl 10 mg Oral cap 1 cap 4 times per day [Active]; phenazopyridine 100 mg Oral tab every 4 hours [Active]; - PMHx: 00:58 brain tumor x 5; Cancer; Multiple Sclerosis; prolapsed bladder; Hernia; lp1 - PSHx: 00:58 None; lp1 - Immunization history:: Adult Immunizations up to date. - Social history:: Smoking status: Patient/guardian denies using tobacco. - Ebola Screening: : No symptoms or risks identified at this time. - Family history:: not pertinent. - Hospitalizations: : No recent hospitalization is reported. Screenin:58 Abuse screen: Denies threats or abuse. Denies injuries from another. Nutritional lp1 screening: No deficits noted. Tuberculosis screening: No symptoms or risk factors identified. Fall Risk Total Reyes Fall Scale indicates High Risk Score (45 or more points). Fall prevention measures have been instituted. Side Rails Up X 2 Family Present and informed to notify staff if the need to leave the bedside As available patient and family educated on Fall Prevention Program and Strategies. Assessment: 00:51 General: Appears uncomfortable, Behavior is anxious. Pain: Complains of pain in right lp1 upper quadrant and left upper quadrant Pain currently is 8 out of 10 on a pain scale. Quality of pain is described as sharp. Neuro: Level of Consciousness is awake, alert, obeys commands. Cardiovascular: Patient's skin is warm and dry. Respiratory: Reports shortness of breath Airway is patent Trachea midline Respiratory effort is even, Respiratory pattern is regular, Breath sounds are clear bilaterally. GI: Abdomen is obese, Bowel sounds present X 4 quads. Reports upper abdominal pain, diarrhea, intolerance of fluids, intolerance of food, nausea, vomiting. : Reports burning with urination. EENT: No signs and/or symptoms were reported regarding the EENT system. Derm: Skin is intact, Skin is dry, Skin is flushed. Musculoskeletal: Circulation, motion, and sensation intact. 02:29 Reassessment:. General: Appears in no apparent distress. uncomfortable, Behavior is ao agitated, anxious. Pain: Complains of pain in abdomen. Neuro: Level of Consciousness is awake, alert, Oriented to person, Speech is normal. Cardiovascular: Capillary refill < 3 seconds Patient's skin is warm and dry. Respiratory: Airway is patent Respiratory effort is even, unlabored, Respiratory pattern is regular, symmetrical. GI: Abdomen is obese, : No signs and/or symptoms were reported regarding the genitourinary system. EENT: No signs and/or symptoms were reported regarding the EENT system. Derm: Skin is intact, Skin is dry, Skin is flushed, Skin temperature is warm. Musculoskeletal: Circulation, motion, and sensation intact. 02:56 Reassessment: Patient appears in no apparent distress at this time. Patient and/or ao family updated on plan of care and expected duration. Pain level reassessed. Patient back from CT. Patient complains of a headache. Dr Ventura was notified. 04:59 Reassessment: Patient C/O nausea. Patient to be admitted per Dr Ventura. Waiting on ao admitting Dr to evaluate patient. 06:07 Reassessment: Patient appears in no apparent distress at this time. Patient and/or ao family updated on plan of care and expected duration. Pain level reassessed. Vital Signs: 00:50 BP 120 / 77; Pulse 100; Resp 18; Temp 98.8(O); Pulse Ox 95% on R/A; Weight 78.93 kg; lp1 Height 5 ft. 1 in. (154.94 cm); Pain 8/10; 01:51 BP 124 / 84; Pulse 81; Resp 16; Pulse Ox 96% on R/A; mt 02:29 BP 120 / 82; Pulse 90; Resp 16; Pulse Ox 92% on R/A; ao 03:44 BP 114 / 80; Pulse 90; Resp 16; Pulse Ox 95% on R/A; mt 04:59 BP 120 / 86; Pulse 88; Resp 16; Pulse Ox 94% on R/A; ao 06:11 BP 130 / 79; Pulse 86; Resp 16; Pulse Ox 100% on R/A; ao 00:50 Body Mass Index 32.88 (78.93 kg, 154.94 cm) lp1 ED Course: 00:19 Patient arrived in ED. es 00:22 Barney Ventura MD is Attending Physician. rn 00:45 Felicia Mackay RN is Primary Nurse. lp1 00:45 Missed attempt(s): 22 gauge in right antecubital area. lp1 00:50 Triage completed. lp1 00:50 Missed attempt(s): 20 gauge in left antecubital area. ao 00:50 Arm band placed on right wrist. lp1 00:55 Inserted saline lock: 22 gauge in right antecubital area, using aseptic technique. ao ,using aseptic technique. Ultrasound guided IV. 00:58 Patient has correct armband on for positive identification. Placed in gown. Bed in low lp1 position. Call light in reach. Side rails up X2. Pulse ox on. NIBP on. 01:43 Oral contrast given. vm2 02:31 Report received from VITA Duarte. ao 02:32 Primary Nurse role handed off by Felicia Mackay RN ao 02:32 Eliceo Fernandez RN is Primary Nurse. ao 03:09 CT Abd/Pelvis - W/Contrast In Process Unspecified. EDMS 04:58 Alberta Reed MD is Hospitalizing Provider. rn 06:22 No provider procedures requiring assistance completed. Patient admitted, IV remains in ao place. Administered Medications: 00:59 Drug: Zofran 4 mg Route: IVP; Site: right antecubital; lp1 01:23 Follow up: Response: Nausea unchanged lp1 01:01 Drug: NS 0.9% 500 ml Route: IV; Rate: bolus; Site: right antecubital; lp1 01:30 Follow up: IV Status: Completed infusion; IV Intake: 500ml lp1 01:23 Drug: Phenergan 25 mg Route: IVP; Site: right antecubital; lp1 02:00 Follow up: Response: Nausea is decreased lp1 02:01 Drug: NS 0.9% 500 ml Route: IV; Rate: bolus; Site: right antecubital; lp1 06:15 Follow up: IV Status: Completed infusion; IV Intake: 500ml ao 02:28 Drug: Demerol 25 mg Route: IVP; Site: right antecubital; ao 04:43 Follow up: Response: No adverse reaction ao 03:35 Drug: Phenergan 12.5 mg Route: IVP; Site: right antecubital; ao 04:43 Follow up: Response: No adverse reaction ao 04:30 Drug: Macrobid 100 mg Route: PO; ao 06:17 Follow up: Response: No adverse reaction ao 04:30 Drug: Zofran 4 mg Route: IVP; Site: right antecubital; ao 06:17 Follow up: Response: No adverse reaction ao Intake: 01:30 IV: 500ml; Total: 500ml. lp1 06:15 IV: 500ml; Total: 1000ml. ao Outcome: 04:59 Decision to Hospitalize by Provider. rn 06:23 Admitted to Med/surg accompanied by tech, room 204, with chart, Report called to kyle Nunez RN 06:23 Condition: stable 06:23 Instructed on the need for admit. 06:23 Patient left the ED. ao Signatures: Dispatcher [employer] Yvonne Whipple Roman, MD MD rn Pena, Laura, RN RN lp1 Eliceo Fernandez RN RN ao Mc[place], [facility] Caridad Gao az Corrections: (The following items were deleted from the chart) 01:01 00:50 BP 120 / 77; Pulse 100bpm; Resp 18bpm; Pulse Ox 95% RA; 78.93 kg; Height 5 ft. 1 lp1 in.; BMI: 32.8; Pain 8/10; lp1
--- NOTE | 2018-04-03 05:00 | EDPHYS ---
Physician Documentation [facility] Name: Lianne Medina Age: 47 yrs Sex: Female : 1970 Arrival Date: 04/03/2018 Time: 00:19 Bed 20 Private MD: ED Physician Barney Ventura HPI: 04/03 01:14 This 47 yrs old Female presents to ER via Wheelchair with complaints of rn Vomiting, Diarrhea, Shoulder Pain. 01:15 The patient presents to the emergency department with nausea, vomiting, diarrhea. rn Onset: The symptoms/episode began/occurred at an unknown time. Possible causes: unknown. The symptoms are aggravated by nothing. The symptoms are alleviated by nothing. Associated signs and symptoms: Pertinent positives: abdominal pain, diarrhea, nausea, vomiting. Severity of symptoms: At their worst the symptoms were moderate in the emergency department the symptoms are unchanged. The patient has experienced similar episodes in the past. The patient has not recently seen a physician. Reports chronic vomiting/diarrhea, states happens somewhat frequently since teenage years, + abd cramping, no fever, states situation made worse due to inability to tolerate her pain meds/klonopin/soma. . LICENSE ISSUER: 01:02 LMP N/A - Post-menopause lp1 Historical: - Allergies: 00:58 ACETAMINOPHEN; lp1 00:58 Celecoxib; lp1 00:58 cyclobenzaprine HCl; lp1 00:58 CYCLOSPORINE; lp1 00:58 divalproex; lp1 00:58 levetiracetam; lp1 00:58 Lorazepam; lp1 00:58 METOCLOPRAMIDE; lp1 00:58 NSAIDS (Non-Steroidal Anti-Inflammatory Drug); lp1 00:58 Oxycodone HCl; lp1 00:58 PENICILLINS; lp1 00:58 Sulfa (Sulfonamide Antibiotics); lp1 00:58 TETRACYCLINES; lp1 00:58 Tizanidine; lp1 00:58 tramadol; lp1 01:02 Fentanyl; lp1 - Home Meds: 00:58 Nexium 40 mg oral cpDR 2 times per day [Active]; Klonopin 1 mg Oral tab four times a lp1 day [Active]; Soma 350 mg oral tab 1.5 tab four times a day [Active]; hydrocodone-acetaminophen 5-300 mg oral tab 2 tabs every 4 hours [Active]; promethazine 25 mg Oral tab 1 tab every 6 hours [Active]; potassium chloride 20 mEq Oral TbER 3 tab once daily [Active]; Bentyl 10 mg Oral cap 1 cap 4 times per day [Active]; phenazopyridine 100 mg Oral tab every 4 hours [Active]; - PMHx: 00:58 brain tumor x 5; Cancer; Multiple Sclerosis; prolapsed bladder; Hernia; lp1 - PSHx: 00:58 None; lp1 - Immunization history:: Adult Immunizations up to date. - Social history:: Smoking status: Patient/guardian denies using tobacco. - Ebola Screening: : No symptoms or risks identified at this time. - Family history:: not pertinent. - Hospitalizations: : No recent hospitalization is reported. ROS: 01:15 Constitutional: Negative for fever, chills, and weight loss, Eyes: Negative for injury, rn pain, redness, and discharge, Neck: Negative for injury, pain, and swelling, Cardiovascular: Negative for chest pain, palpitations, and edema, Respiratory: Negative for shortness of breath, cough, wheezing, and pleuritic chest pain, Abdomen/GI: Negative for constipation MS/Extremity: Negative for injury and deformity, Skin: Negative for injury, rash, and discoloration, Neuro: Negative for numbness, tingling, and seizure. Exam: 01:15 Constitutional: Overweight female, wretching, appears anxious and rocking back and rn forth holding emesis bag. Head/Face: Normocephalic, atraumatic. Eyes: Pupils equal round and reactive to light, extra-ocular motions intact. Lids and lashes normal. Conjunctiva and sclera are non-icteric and not injected. Cornea within normal limits. Periorbital areas with no swelling, redness, or edema. ENT: dry MM Cardiovascular: Regular rate and rhythm with a normal S1 and S2. No gallops, murmurs, or rubs. Normal PMI, no JVD. No pulse deficits. Respiratory: Lungs have equal breath sounds bilaterally, clear to auscultation and percussion. No rales, rhonchi or wheezes noted. No increased work of breathing, no retractions or nasal flaring. Abdomen/GI: soft, mild lower abd tenderness, no rebound/masses MS/ Extremity: Pulses equal, no cyanosis. Neuro: Awake and alert, GCS 15, oriented to person, place, time, and situation. Cranial nerves II-XII grossly intact. Motor strength 5/5 in all extremities. Sensory grossly intact. Vital Signs: 00:50 BP 120 / 77; Pulse 100; Resp 18; Temp 98.8(O); Pulse Ox 95% on R/A; Weight 78.93 kg; lp1 Height 5 ft. 1 in. (154.94 cm); Pain 8/10; 01:51 BP 124 / 84; Pulse 81; Resp 16; Pulse Ox 96% on R/A; mt 02:29 BP 120 / 82; Pulse 90; Resp 16; Pulse Ox 92% on R/A; ao 03:44 BP 114 / 80; Pulse 90; Resp 16; Pulse Ox 95% on R/A; mt 04:59 BP 120 / 86; Pulse 88; Resp 16; Pulse Ox 94% on R/A; ao 06:11 BP 130 / 79; Pulse 86; Resp 16; Pulse Ox 100% on R/A; ao 00:50 Body Mass Index 32.88 (78.93 kg, 154.94 cm) lp1 MDM: 00:22 Patient medically screened. rn 04:57 Differential diagnosis: Nonspecific abd pain, gastritis, viral gastroenteritis, rn gastroenteritis. Data reviewed: vital signs, nurses notes, lab test result(s), radiologic studies, CT scan, and as a result, I will admit patient. Counseling: I had a detailed discussion with the patient and/or guardian regarding: the historical points, exam findings, and any diagnostic results supporting the discharge/admit diagnosis, lab results, radiology results, the need for further work-up and treatment in the hospital. Response to treatment: There is no appreciated change of the patient's symptoms at this time. Admission orders: after a detailed discussion of the patient's condition and case, the admit orders are written by me. ED course: Pt continues to throw up in ER, states not able to swallow or keep anything down, family concerned because has phenergan at home and not helping, will admit for observation to Dr. Gray. . 04/03 00:34 Order name: Basic Metabolic Panel; Complete Time: 01:54 rn 04/03 00:34 Order name: CBC with Diff; Complete Time: :54 rn 04/03 00:34 Order name: Hepatic Function; Complete Time: 01:54 rn 04/03 00:34 Order name: Lipase; Complete Time: 01:54 rn 04/03 00:34 Order name: Urine Microscopic Only; Complete Time: 04:14 rn 04/03 03:12 Order name: Urine Dipstick--Ancillary (enter results); Complete Time: 04:14 mw2 04/03 00:34 Order name: CT Abd/Pelvis - W/Contrast rn 04/03 03:12 Order name: Urine --Ancillary (enter results); Complete Time: 04:14 2 04/03 03:45 Order name: Urine Culture EDMS 04/03 00:34 Order name: IV Saline Lock; Complete Time: 00:59 rn 04/03 00:34 Order name: Labs collected and sent; Complete Time: 00:59 rn 04/03 00:34 Order name: EKG; Complete Time: 00:35 rn 04/03 00:34 Order name: EKG - Nurse/Tech; Complete Time: 01:03 rn Administered Medications: 00:59 Drug: Zofran 4 mg Route: IVP; Site: right antecubital; lp1 01:23 Follow up: Response: Nausea unchanged lp1 01:01 Drug: NS 0.9% 500 ml Route: IV; Rate: bolus; Site: right antecubital; lp1 01:30 Follow up: IV Status: Completed infusion; IV Intake: 500ml lp1 01:23 Drug: Phenergan 25 mg Route: IVP; Site: right antecubital; lp1 02:00 Follow up: Response: Nausea is decreased lp1 02:01 Drug: NS 0.9% 500 ml Route: IV; Rate: bolus; Site: right antecubital; lp1 06:15 Follow up: IV Status: Completed infusion; IV Intake: 500ml ao 02:28 Drug: Demerol 25 mg Route: IVP; Site: right antecubital; ao 04:43 Follow up: Response: No adverse reaction ao 03:35 Drug: Phenergan 12.5 mg Route: IVP; Site: right antecubital; ao 04:43 Follow up: Response: No adverse reaction ao 04:30 Drug: Macrobid 100 mg Route: PO; ao 06:17 Follow up: Response: No adverse reaction ao 04:30 Drug: Zofran 4 mg Route: IVP; Site: right antecubital; ao 06:17 Follow up: Response: No adverse reaction ao Disposition: 04/03/18 04:59 Hospitalization ordered by Alberta Reed for Observation. Preliminary diagnosis are Vomiting, Urinary tract infection, site not specified, Intractable vomiting. - Bed requested for Telemetry/MedSurg (observation). - Status is Observation. ao - Condition is Stable. - Problem is an ongoing problem. - Symptoms are unchanged. UTI on Admission? Yes Signatures: Dispatcher [employer] EDMS Maria Del Rosario Barragan RN RN mw Barney Ventura MD MD rn Pena, Laura, VITA RN lp1 Eliceo Fernandez RN RN ao Corrections: (The following items were deleted from the chart) 05:10 04:59 Hospitalization Ordered by Alberta Reed MD for Observation. Preliminary mw diagnosis is Vomiting; Urinary tract infection, site not specified; Intractable vomiting. Bed requested for Telemetry/MedSurg (observation). Status is Observation. Condition is Stable. Problem is an ongoing problem. Symptoms are unchanged. UTI on Admission? Yes. rn 06:23 05:10 04/03/2018 04:59 Hospitalization Ordered by Alberta Reed MD for Observation. ao Preliminary diagnosis is Vomiting; Urinary tract infection, site not specified; Intractable vomiting. Bed requested for Telemetry/MedSurg (observation). Status is Observation. Condition is Stable. Problem is an ongoing problem. Symptoms are unchanged. UTI on Admission? Yes. mw
--- NOTE | 2018-04-03 05:44 | P.HP ---
Certification for Inpatient Patient admitted to: Observation With expected LOS: <2 Midnights Practitioner: I am a practitioner with admitting privileges, knowledge of patient current condition, hospital course, and medical plan of care. Services: Services provided to patient in accordance with Admission requirements found in Title 42 Section 412.3 of the Code of Federal Regulations Patient History Date of Service: 04/03/18 Reason for admission: Intractable nausea vomiting History of Present Illness: Charles Medina is a 47 with past medical history remarkable for multiple sclerosis , she came to ER complaining of intractable nausea and vomiting starting about 4 days ago. She states that was unable to eat or drink due to persistent vomiting. She has also diffuse abdominal pain. She denied any fever or chills. She looks very anxious. Is in no the 1st time that she has this problem. Laboratory work remarkable for normal WBC count, hyponatremia (chronic), UA abnormal consistent with UTI. CT abdomen and pelvis report sludge versus gallbladder stones. No laboratory or clinical signs of biliary obstruction. Allergies cyclobenzaprine HCl [From Flexeril] Allergy (Intermediate, Verified 09/29/16 18: 12) sob NSAIDS (Non-Steroidal Anti-Inflamma Allergy (Intermediate, Verified 09/29/16 18: 12) sob, edema Sulfa (Sulfonamide Antibiotics) [Sulfa(Sulfonamide Antibiotics)] Allergy ( Intermediate, Verified 09/29/16 18:12) anaphalxis tramadol HCl [From Ultram] Allergy (Intermediate, Verified 09/29/16 18:12) hives, sob Penicillins Allergy (Mild, Verified 09/29/16 18:12) anaphalxis tetracycline [Tetracycline] Allergy (Mild, Verified 09/29/16 18:12) anaphalyxis acetaminophen Allergy (Verified 12/30/17 03:02) Unknown celecoxib Allergy (Verified 12/30/17 03:02) Unknown levetiracetam Allergy (Verified 12/30/17 03:02) Unknown lorazepam Allergy (Verified 12/30/17 03:02) Unknown morphine Allergy (Verified 12/30/17 03:02) Unknown tizanidine Allergy (Verified 12/30/17 03:02) Unknown CYCLOSPORINE Allergy (Uncoded 12/30/17 03:02) Unknown divalproex Allergy (Uncoded 12/30/17 03:02) Unknown METOCLOPRAMIDE Allergy (Uncoded 12/30/17 03:02) Unknown Oxycodone HCl Allergy (Uncoded 12/30/17 03:02) Unknown Home Medications: Carisoprodol [Soma*] 0.5 tab PO Q6H 12/30/17 Sodium Chloride Tab [Sodium Chloride*] 1 gm PO BID #60 tab 12/30/17 - Past Medical/Surgical History Diabetic: No -: cancer -: prlapsed bladder -: brain tumor x 5 -: MS Past Surgical History: Reviewed- Non-Contributory - Family History Father -: Hypertension Mother -: Other (see notes) Notes: thyroid problems - Social History Smoking Status: Current every day smoker Counseled patient to stop smoking for: less than 10 minutes Smoking therapy provided: Yes Patient receptive to therapy: No Alcohol use: No CD- Drugs: No Caffeine use: Yes Place of Residence: Home Review of Systems 10-point ROS is otherwise unremarkable Physical Examination - Physical Exam General: Alert, Moderate distress (Due to nausea vomiting) HEENT: Atraumatic, PERRLA, Mucous membr. moist/pink, EOMI, Sclerae nonicteric Neck: Supple, 2+ carotid pulse no bruit, No LAD, Without JVD or thyroid abnormality Respiratory: Clear to auscultation bilaterally, Normal air movement Cardiovascular: Regular rate/rhythm, Normal S1 S2 Gastrointestinal: Normal bowel sounds, Tenderness (Tenderness to palpation diffusely) Musculoskeletal: No tenderness Integumentary: No rashes Neurological: Normal speech, Normal tone, Normal affect Lymphatics: No axilla or inguinal lymphadenopathy - Studies Laboratory Data (last 24 hrs) 04/03/18 00:40: WBC 9.1, Hgb 14.5, Hct 43.6, Plt Count 257 04/03/18 00:40: Sodium 127 L, Potassium 4.1, BUN 7, Creatinine 0.60, Glucose 99 , Total Bilirubin 0.6, AST 46 H, ALT 71, Alkaline Phosphatase 114, Lipase 119 Assessment and Plan - Problems (Diagnosis) (1) Multiple sclerosis Current Visit: Yes Status: Acute (2) UTI (urinary tract infection) Current Visit: Yes Status: Acute Qualifiers: Urinary tract infection type: acute cystitis Hematuria presence: without hematuria Qualified Code(s): N30.00 - Acute cystitis without hematuria (3) Intractable nausea and vomiting Current Visit: Yes Status: Acute Qualifiers: Vomiting type: unspecified Qualified Code(s): R11.2 - Nausea with vomiting , unspecified (4) Cholelithiasis Current Visit: Yes Status: Acute Qualifiers: Cholelithiasis location: gallbladder Cholecystitis presence: without cholecystitis Biliary obstruction: without biliary obstruction Qualified Code(s): K80.20 - Calculus of gallbladder without cholecystitis without obstruction (5) Hyponatremia Current Visit: No Status: Acute - Plan The patient will be admitted to the hospital due to intractable nausea vomiting. Etiology may be due to multiple problems including UTI, symptomatic cholelithiasis, MS. Will order empiric IV antibiotics, abdominal ultrasound for better evaluation of biliary tree, depending on report may consult surgical team for evaluation recommendation. Continue symptomatic medication for nausea , IV fluids, clear liquids diet. - Advance Directives Does patient have a Living Will: No Does patient have a Durable POA for Healthcare: No - Code Status/Comfort Care Code Status Assessed: Yes Code Status: Full Code
[2018-04-03] MEDS ORDERED: ONDANSETRON 4 MG/2 ML VIAL IV PRN (06:20)
[2018-04-03] MEDS ORDERED: PROMETHAZINE 25 MG/ML VIAL IV PRN (06:20)
[2018-04-03] MEDS ORDERED: NA CHLORIDE 0.9% 1,000 ML IV SCH (06:20)
[2018-04-03 06:43] VITALS: O2SAT 100
[2018-04-03] MEDS ORDERED: ENOXAPARIN 40 MG/0.4 ML SQ SCH (09:00)
[2018-04-03] MEDS ORDERED: CIPROFLOXACIN 400mg IV 400 MG/200 ML BAG IV SCH ×2 (09:00→21:00)
--- NOTE | 2018-04-03 09:15 | RAD REPORT ---
EXAM DESCRIPTION: CT - Abdomen Pelvis W Contrast - 04/03/2018 6:11 am CLINICAL HISTORY: Abdominal pain with vomiting for 3 days. Epigastric pain COMPARISON: July 2017 TECHNIQUE: Computed axial tomography of the abdomen pelvis was obtained. 100 cc Isovue-300 was admin istered intravenously. Oral contrast was not requested which limits evaluation of bowel. A preliminar y report was generated by [employer] and reviewed prior to dictation All CT scans are performed using dose optimization technique as appropriate and may include automated exposure control or mA/KV adjustment according to patient size. FINDINGS: Liver has a mildly diminished attenuation consistent with fatty infiltration. Spleen, pancreas, adrenal and kidneys appear unremarkable. There is no evidence of diverticulitis. The appendix is normal. A hysterectomy has been performed. An adnexal mass is not seen. Small umbilical hernia contains fat. The gallbladder wall is normal thickness. IMPRESSION: No acute abnormality is displayed.
--- NOTE | 2018-04-03 09:15 | RAD REPORT ---
EXAM DESCRIPTION: US - Abdomen Exam Limited - 04/03/2018 7:50 am CLINICAL HISTORY: Abdominal pain. COMPARISON: CT April 03, 2018 FINDINGS: The gallbladder wall is not thickened. A gallstone is not seen. The biliary tree is normal caliber. IMPRESSION: Unremarkable gallbladder ultrasound.
[2018-04-03 11:11] VITALS: BMI 32.8
--- NOTE | 2018-04-03 17:53 | EKG ---
Test Date: 2018-04-03 Test Time: 00:40:31 [employer] Control Operator: TAMARA MEASUREMENT RESULTS: Intervals: Rate: 97 CO: 146 QRSD: 76 QT: 344 QTc: 436 Baker: P: 48 CO: 146 QRS: 47 T: 44 INTERPRETIVE STATEMENTS: Normal sinus rhythm Normal ECG Compared to ECG 04/22/2016 00:38:41 No significant changes Electronically Signed On 04-03-18 17:50:59 CDT by Landen Carlson
[2018-04-03 18:02] VITALS: BP 129/65; TEMP 97.5
== END 2018-04-03 18:23 | disposition home or self-care (01) ==
LOC: ER 00:15 → ERHOLD 05:09 → 2ND 06:09
PROVIDERS: ADMIT Internal Medicine; ATTEND Family Medicine
DX: N30.00 Acute cystitis without hematuria (principal); R11.2 Nausea with vomiting, unspecified; K80.20 Calculus of gallbladder without cholecystitis without obstruction; E87.1 Hypo-osmolality and hyponatremia; G35 Multiple sclerosis; Z88.0 Allergy status to penicillin; Z88.2 Allergy status to sulfonamides
CPT/HCPCS: 36415; 74177; 76705; 80048; 80076; 81003; 81015; 81025; 83690; 85025; 87070; 87086; 87088; 87205; 93005; 96361; 96374; 96375; 99285; G0378; J0744; J1650; J2175; J2405; J2550; J7030; Q9967

== ENCOUNTER 2022-07-10 22:20 | Emergency (ER) | payer OTHER ==
--- OUTSIDE RECORDS SUMMARY | 2022-07-10 22:25 | XMS REPORT | Clinical Summary ---
:1970 Author Organization [facility] MD Driver [facility] Address [address] [place] [address] Care Team Providers Name Role Phone Mingo Street MD Primary Care Provider Nomi Olea MD Unavailable Pedro Comer MD Unavailable Haresh Venegas MD Unavailable Unavailable Magnolia Holden MD Unavailable Prince LOS Schreiber Unavailable Darnell Wellington MD Unavailable Jossue Suresh Unavailable Mingo Street MD Unavailable Margarita Chaves Unavailable Kimber Mendoza MD Unavailable [phone] Allergies Active Allergy Reactions Severity Noted Date Comments Alprazolam Anxiety Low 01/21/2016 Lorazepam Anxiety Low 01/21/2016 Sulfamethoxazole-Trimethop Hives 01/21/2016 rim Celecoxib 04/10/2016 Cephalosporins 04/10/2016 unknown Ciprofloxacin Hcl Other (See Comments) 01/21/2016 Bl adder infection Prochlorperazine 12/15/2021 Cyclosporine Hives 01/21/2016 Divalproex Palpitations Low 01/21/2016 Fentanyl Anxiety, High 12/16/2021 Agitation, Palpitations, Other Increase d heart (See Comments) rate Cyclobenzaprine 04/10/2016 unknown Levetiracetam Rash Low 01/21/2016 Ketorolac High 08/20/2021 Per patient thr oat closes up Finzel Analogues Other (See Comments) 01/21/2016 Penicillins High 03/01/2016 Throat closes u p Metoclopramide Hcl Other (See Comments) Low 04/10/2016 Tetracyclines Hives 01/21/2016 Tramadol Shortness Of Breath High 03/01/2016 Throat c loses up Tizanidine 04/10/2016 unknown Medications Medication Sig Dispensed Refills Start End Date Status Date esomeprazole Take 40 mg by 0 Act rodney (NexIUM) 40 MG mouth 2 (two) capsule times a day before meals. dicyclomine (BENTYL) Take 10 mg by 0 Active 10 mg capsule mouth every 4 (four) hours as needed. ADVAIR DISKUS 100-50 daily as 1 Active mcg/dose diskus needed. 7 inhaler phenazopyridine Take 100 mg 0 Ac tive (PYRIDIUM) 100 mg by mouth tablet every 6 (six) hours as needed. ondansetron (ZOFRAN) 2 tablets 3 0 Active 8 mg tablet (three) times 2 a day. zinc (Chelated Zinc) Take by 0 Active 50 mg tab mouth. magnesium Take 4 0 Active oxide-protein tablets by complex mouth daily. (Wz-Rpnm-Whurgwj Complex) 133 mg tablet cholecalciferol, Take 2,000 0 Ac tive vitamin D3, (VITAMIN Units by D3) 2,000 units tab mouth. tablet ascorbic acid, Take 500 mg 0 Act rodney vitamin C, (vitamin by mouth C) 100 mg tablet daily. Pt can't remember the dose ketoconazole Apply 120 mL 09/26/19 Active (NIZORAL) 2% topically to 2 23 shampooIndications: affected Seborrhea capitis area(s) 3 (three) times a week Sunday, Sunday and Sunday. Leave in scalp for 5 minutes before washing off diazePAM (VALIUM) 5 Take 5 mg by 0 Active mg tablet mouth 4 (four) times a day. As needed carisoprodol (SOMA) Take 350 mg 0 Active 350 mg tablet by mouth. 8 promethazine Take by 0 Active (PHENERGAN) 12.5 mg mouth. tablet carisoprodol (SOMA) Take 350 mg 0 09/16/19 Discontinued 350 mg tablet by mouth 4 22 (Not Applicable) (four) times a day as needed for muscle spasms. HYDROcodone-acetamin Take 1 tablet 0 09/16 Discontinued ophen (NORCO) 5 by mouth 22 (Not Applicable) mg-325 mg per tablet every 6 (six) hours as needed for mild pain. Taking 5/ 300 mg prn clonazePAM Take 1 mg by 0 09/16/19 Discon tinued (KlonoPIN) 1 mg mouth daily. 22 ( Not Applicable) tablet Reported on 10/30/2016 HYDROcodone-acetamin Take 1 tablet 12 tablet 0 09/16 Discontinued ophen ([place]) 5 by mouth 2 22 (The rapy mg-325 mg per every 6 (six) co mpleted) tabletIndications: hours as Chronic pain needed for moderate pain. carisoprodol (Soma) Take 1 tablet 12 tablet 0 Discontinued 350 mg (350 mg) by 2 22 tabletIndications: mouth 4 Chronic pain (four) times a day as needed for muscle spasms. levoFLOXacin Take 1 tablet 21 each 0 09/04/19 Exp ired (LEVAQUIN) 250 mg (250 mg) by 2 22 tabletIndications: mouth daily Urinary tract for 21 days. infection, not otherwise specified fluticasone Inhale 1 puff 60 each 0 09/13/19 Expi red propionate-salmetero by mouth 2 22 l (Advair Diskus) twice daily 100 mcg-50 for 30 days. mcg/inhalation diskus inhalerIndications: Chronic pain dicyclomine (BENTYL) Take 1 20 capsule 0 09/16/19 Discontinued 10 mg capsule (10 2 22 (Therapy capsuleIndications: mg) by mouth completed) Chronic pain every 8 (eight) hours as needed (abdominal cramps). pantoprazole Take 1 tablet 21 each 0 09/16/19 Dis continued (Protonix) 40 mg EC (40 mg) by 2 22 (Therapy tabletIndications: mouth every completed) Nausea morning before breakfast. fluconazole Take 1 tablet 21 each 0 09/10/19 Expi red (Diflucan) 100 mg (100 mg) by 2 22 tabletIndications: mouth daily Candidiasis of skin for 21 days. cholecalciferol, Take 400 0 11/04/19 Dis continued vitamin D3, (VITAMIN Units by 22 (Therapy D3) 5,000 units tab mouth. completed) tablet silver sulfadiazine Apply 85 g 11 10/11/19 (Silvadene) 1% topically to 2 22 creamIndications: affected Intertrigo area(s) twice daily for 14 days. 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 11/01/2016 Post-traumatic stress disorder 11/01/2016 Mild cognitive disorder 11/01/2016 Adjustment disorder with physical complaints 7 Hyponatremia 10/31/2016 Melena 10/31/2016 Endometriosis 10/31/2016 Urinary tract infection 10/31/2016 Colitis 10/31/2016 Chronic pain syndrome 10/31/2016 Tobacco use 10/31/2016 Anemia of chronic disease 10/31/2016 Headache 10/31/2016 Abdominal pain, generalized 04/13/2016 Generalized anxiety disorder 04/13/2016 Encounters Date Type Specialty Care Team Description 12/16/2021 Anesthesia Event Radiology Natalie Mcdonald MD Lau, Bonnie, CRNA 12/16/2021 Hospital Encounter Radiology AlexCherrie Nipple discharge; U, JEWEL HOLE FINISH OPENER Mastodynia Natalie Mcdonald MD Lau, Bonnie, CRNA 12/16/2021 Travel 12/15/2021 Anesthesia Event Anesthesiology Yolis Augstin, RN 12/15/2021 POEM Appointments Anesthesiology 12/15/2021 Nurse Triage Felicia Cueva RN 12/14/2021 Clinical Support Jenny García C OVID-19 VITA Warren (Primary Dx) 12/14/2021 Travel 12/13/2021 Travel 11/29/2021 Telephone Cancer Prevention Aleksander Venegas, VITA 11/28/2021 Anesthesia Event Anesthesiology Norris Larry RN 11/28/2021 POEM Appointments Anesthesiology 11/16/2021 Orders Only Cancer Prevention Cherrie Johnson Nipple discharge (Primary Dx); U, JEWEL HOLE FINISH OPENER Mastodynia 11/14/2021 Telephone Cancer Prevention Cherrie Johnson U, JEWEL HOLE FINISH OPENER 11/11/2021 Ancillary Procedure Radiology Cherrie Johnson Nippl e discharge; U, JEWEL HOLE FINISH OPENER Mastodynia 11/11/2021 Telephone Cancer Prevention Alex Sindhususan U, JEWEL HOLE FINISH OPENER 11/11/2021 Orders Only Radiology Nicol Matias NP 11/11/2021 Travel 11/03/2021 Telephone Cancer Prevention Alex Sindhususan U, JEWEL HOLE FINISH OPENER 11/03/2021 Telephone Cancer Prevention Aleksander Venegas, VITA 10/28/2021 Orders Only Cancer Prevention Alex Cherrie Nipple discharge (Primary Dx); U, JEWEL HOLE FINISH OPENER Mastodynia 10/25/2021 Telephone Cancer Prevention Aleksander Venegas, VITA 10/24/2021 Telephone Dermatology Lavon Cueto RN 10/18/2021 Telephone Dermatology Lavon Cueto RN 09/26/2021 Consult Dermatology Cathy, Seborrhea capit is (Primary Dx); MD Tigist Psoriasis, not otherwise specified; Intertrigo 09/26/2021 Travel 09/21/2021 Documentation Sesar Clark RN 09/20/2021 Orders Only Cancer Prevention Cherrie Johnson Need fo r personal U, JEWEL HOLE FINISH OPENER care assistance (Primary Dx) 09/16/2021 Clinical Support Breast Undiagnosed Cherrie Johnson U, JEWEL HOLE FINISH OPENER 09/16/2021 Hospital Encounter Radiology Alex Sindhususan Mastod ynia; U, JEWEL HOLE FINISH OPENER Nipple discharg e 09/16/2021 Hospital Encounter Radiology Alex Cherrie Mastod ynia; U, JEWEL HOLE FINISH OPENER Nipple discharg e 09/16/2021 Office Visit Breast Undiagnosed Cherrie Johnson Nipple discharge (Primary Dx); U, JEWEL HOLE FINISH OPENER Mastodynia; Other sign and symptom in breast; Psoriasis, not otherwise specified; Encounter for o ther screening for malignant neoplasm of breast 09/16/2021 [facility] Patient Access Services 09/16/2021 Travel 09/14/2021 Telephone Cancer Prevention Cherrie Johnson U, JEWEL HOLE FINISH OPENER 08/26/2021 Orders Only Cancer Prevention Cherrie Johnson (Primary Dx); U, JEWEL HOLE FINISH OPENER Nipple discharg e 08/26/2021 Documentation Alisha Ceron, VITA 08/22/2021 Telephone Internal Medicine Blanca English NP 08/21/2021 Emergency Emergency Medicine Anirudh Peña MD (Primary Dx) 08/21/2021 Travel 08/21/2021 Telephone Felicia Cueva, Discharge Ca ll RN 08/20/2021 Emergency Emergency Medicine Anirudh Peña is of MD Thomas skin (Primary D x) 08/20/2021 Travel 08/19/2021 Travel 08/17/2021 Telephone Jennifer Maher RN 08/16/2021 Refill Neurosurgery Trisha Villalobos Chronic pain MD Zari 08/14/2021 Travel 08/13/2021 Emergency Clinical Decision Osvaldo Vidal pa in (Primary Dx); - MD Abel Moderate dehydration; 08/14/2021 Trisha Villalobos Tobacco depend ence syndrome; MD Zari Personality dis order; Abdominal pain; Anxiety about a ltered body image; Urinary tract i nfection, not otherwise specified; Nausea 08/13/2021 Travel after 07/10/2021 Surgical History Surgery Date Site/Laterality Comments BREAST RECONSTRUCTION WA ESOPHAGOGASTRODUODENOSCOPY 11/02/2016 Esophagus/N/A Pr ocedure: DIAGNOSTIC TRANSORAL DIAGNOSTIC UPPER GASTR OINTESTINAL ENDOSCOPY; Surge on: Apoorva Mane i, MD; Location: MAIN ENDOSCOPY; Servi ce: GASTROENTEROLOGY WA COLONOSCOPY FLX DX W/COLLJ SPEC 11/02/2016 N/A Procedure: DIAGNOSTIC WHEN PFRMD FLEXIBLE COLONOS COPY PROXIMAL TO SPLE DOUG FLEXURE; Surgeon : Apoorva Mane i, MD; Location: MAIN ENDOSCOPY; Servi ce: GASTROENTEROLOGY COLONOSCOPY 07/30/1998 - 07/29/1999 EXPLORATORY LAPAROTOMY [id number] HYSTERECTOMY [id number] UPPER GASTROINTESTINAL ENDOSCOPY 07/30/1998 - 07/29/1999 Medical History Medical History Date Comments Stroke Seizure Myocardial infarction 1998 Hyperlipidemia Irregular heart beat Migraine 1982 Multiple sclerosis 1970 Traumatic brain injury 8617-2085 Allergic rhinitis 8140-7522 Sinusitis 9497-1395 Difficulty talking 2016 Tooth disorder 2012 Swallowing problem 2004 Chronic bronchitis 1507-0395 Asbestosis 2201-4171 Pneumonia 2004 Gastric reflux 1987 Colitis 1998 2separate bailee finney ifferent diagnosis Celiac disease 2006 Malabsorption syndrome 1982 Diverticulitis [id number] Irritable bowel syndrome 1998 Renal stone 1982 History of recurrent urinary tract 1987 infection Urinary incontinence 4358-7989 Sexual dysfunction [id number] Abnormal uterine bleeding unrelated 8546-1883 to menstrual cycle Polycystic ovarian syndrome 1988 Endometriosis 4510-4576 Dr Comer stated en do had traveled to other organs,hips , sp Anemia 2007 Blood transfusion, without reported 1982 Size J, breast total reconstuction diagnosis Osteoporosis 2009 Osteomyelitis 1994 Breake of wrist had to take antibiotics Anxiety 7468-6058 do not have anxiety or panic attacks since 2003 Psoriasis 1967-current Endometrial carcinoma Cancer - Multiple sclerosis 11/27/[address] 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 Bone canc er patient@[facility],[place] Hypertension Father Costa Alegria Melanoma Father Costa Alegria Prostate cancer Father Costa Alegria Sarcoma Father Costa Alegria Bone cancer Skin cancer Father Costa Alegria Colon cancer Maternal Aunt Debbielynn Colon cancer Maternal Grandfather Prashant Zenon Graves' disease Maternal Grandfather Prashant Diazp Head and neck cancer Maternal Grandfather Prashant Diazp Skin cancer Maternal Grandfather Prashant Diazp Thyroid cancer Maternal Grandfather Prashant Diazp Graves' disease Mother Florence Melanoma Mother Florence Multiple Myeloma Mother Florence Never smoked Skin cancer Mother Florence Thyroid cancer Mother Florence -Unknown cancer Paternal Aunt 1 Billelissaue Raji Colon cancer Paternal Aunt 1 Billelissaue Raji Ovarian cancer Paternal Aunt 1 Billysue Raji Kidney cancer Paternal Aunt 2 Debbielynn Lung cancer Paternal Grandfather Demar Mesothelioma Paternal Grandfather Demar Multiple Myeloma Paternal Grandfather Demar 1 09/24/1967 Bile duct cancer Paternal Grandmother Hunt Liver cancer Paternal Grandmother Hunt Stomach cancer Paternal Grandmother Hunt Brain cancer Paternal Uncle Prashant -Unknown cancer Sister [facility] Graves' disease Sister [facility] Uterine cancer Sister [facility] Vaginal cancer Sister [facility] Relation Name Status Comments Father Costa Alegria Maternal Aunt Dudley Maternal Grandfather Prashant [place] Mother Florence Paternal Aunt 1 Yenny Alegria Paternal Aunt 2 Dudley Paternal Grandfather Demar Paternal Grandmother Marilee Paternal Uncle Prashant Hernandez Social History Tobacco Use Types Packs/Day Years Used Date Smoking Tobacco: Every Day Cigarettes 1.5 15 S tarted: 11/29/2006 Smokeless Tobacco: Never Tobacco Cessation: Ready to Quit: No Alcohol Use Standard Drinks/Week Comments No 0 (1 standard drink = 0.6 oz pure alcoho l) Sex Assigned at Date Recorded Female 11/22/2021 4:37 PM CDT Job Start Date Occupation Industry Not on file Not on file Not on file Obstetrics History Para Term AB IAB SAB Ectopic Multiple Living Live Births 2 2 2 Date Outcome GA Total Labor/2nd/3rd Weight Sex Delivery Anes PTL Arlette A 1 A5 Name Clin Labor Para Para Comments Menarche 12 Parity 19 OBC yes Hormonal Therapy yes Last Pap 2009 Abnormal Pap yes Last [place] 2009 Last Colon yes Breast Bx no Last Filed Vital Signs Vital Sign Reading Time Taken Comments Blood Pressure 132/99 12/16/2021 12:15 PM CDT Pulse 70 12/16/2021 12:20 PM CDT Temperature 36.6 C (97.9 F) 12/16/2021 12:15 PM CDT Respiratory Rate 12 12/16/2021 12:20 PM CDT Oxygen Saturation 91% 12/16/2021 12:20 PM CDT Inhaled Oxygen Concentration - - Weight 78 kg (171 lb 15.3 oz) 11/11/2021 12:06 PM CDT Height 152.4 cm (5') 09/16/2021 8:24 AM LICENSED PRACTICAL NURSE CLINIC NURSE Body Mass Index 33.58 09/16/2021 8:24 AM LICENSED PRACTICAL NURSE CLINIC NURSE Plan of Treatment Date Type Specialty Care Team Description 09/18/2022 Ancillary Procedure Radiology Nichol Ibarra PA [address] [place], [place] [address] (Wo last) 09/18/2022 Office Visit Cancer Prevention Estefany Ibarra PA [address] [place], [place] [address] (Wo rk) 10/02/2022 Follow-Up Dermatology Tala Morgan MD [address] [place], [place] [address] (Wo rk) Health Maintenance Due Date Last Done Comments COVID-19 Vaccination (#1) 01/22/1971 Procedures Procedure Name Priority Date/Time Associated Comments Diagnosis MRI BREAST BILATERAL W Routine 12/16/2021 11:02 Nipple d ischarge Results for this WO CONTRAST INCL CAD AM CDT Mastodynia procedu re are in the results section. COVID-19 (SARS-COV-2) Routine 12/14/2021 3:12 Suspected COV ID-19 Results for this PCR ASYMPTOMATIC PM CDT procedure a re in the results section. US BREAST COMPLETE Routine 09/16/2021 1:51 Mastodynia Results for this BILATERAL PM LICENSED PRACTICAL NURSE CLINIC NURSE Nipple discharge procedure a re in the results section. MAMMO DIGITAL DIAGNOSTIC Routine 09/16/2021 12:38 Mastod ynia Results for this BILATERAL PM LICENSED PRACTICAL NURSE CLINIC NURSE Nipple discharge procedure a re in the results section. URINALYSIS MICROSCOPIC Routine 08/20/2021 9:29 Re sults for this PM LICENSED PRACTICAL NURSE CLINIC NURSE procedure are i n the results section. URINALYSIS WITH Now 08/20/2021 9:29 Results f or this MICROSCOPIC IF INDICATED PM LICENSED PRACTICAL NURSE CLINIC NURSE pro cedure are in the results section. URINE CULTURE Now 08/20/2021 9:29 Results for this PM LICENSED PRACTICAL NURSE CLINIC NURSE procedure are i n the results section. WOUND CULTURE W/ GRAM Now 08/20/2021 9:14 Res ults for this STAIN PM LICENSED PRACTICAL NURSE CLINIC NURSE procedure are i n the results section. COVID-19 (SARS-COV-2) Now 08/20/2021 6:51 Res ults for this ASYMPTOMATIC-LT PM LICENSED PRACTICAL NURSE CLINIC NURSE procedure ar e in the results section. FRACTIONATED BILIRUBIN Now 08/20/2021 6:47 Re sults for this PM LICENSED PRACTICAL NURSE CLINIC NURSE procedure are i n the results section. TOTAL PROTEIN Now 08/20/2021 6:47 Results for this PM LICENSED PRACTICAL NURSE CLINIC NURSE procedure are i n the results section. ASPARTATE Now 08/20/2021 6:47 Results for this AMINOTRANSFERASE PM LICENSED PRACTICAL NURSE CLINIC NURSE procedure a re in the results section. ALANINE AMINOTRANSFERASE Now 08/20/2021 6:47 Results for this PM LICENSED PRACTICAL NURSE CLINIC NURSE procedure are i n the results section. ALKALINE PHOSPHATASE Now 08/20/2021 6:47 Resu lts for this PM LICENSED PRACTICAL NURSE CLINIC NURSE procedure are i n the results section. ALBUMIN LEVEL Now 08/20/2021 6:47 Results for this PM LICENSED PRACTICAL NURSE CLINIC NURSE procedure are i n the results section. CALCIUM LEVEL TOTAL Now 08/20/2021 6:47 Resul ts for this PM LICENSED PRACTICAL NURSE CLINIC NURSE procedure are i n the results section. .GLOMERULAR FILTRATION Now 08/20/2021 6:47 Re sults for this RATE PM LICENSED PRACTICAL NURSE CLINIC NURSE procedure are i n the results section. SERUM CREATININE Now 08/20/2021 6:47 Results for this PM LICENSED PRACTICAL NURSE CLINIC NURSE procedure are i n the results section. ELECTROLYTE PANEL Now 08/20/2021 6:47 Results for this PM LICENSED PRACTICAL NURSE CLINIC NURSE procedure are i n the results section. BLOOD UREA NITROGEN Now 08/20/2021 6:47 Resul ts for this PM LICENSED PRACTICAL NURSE CLINIC NURSE procedure are i n the results section. GLUCOSE LEVEL Now 08/20/2021 6:47 Results for this PM LICENSED PRACTICAL NURSE CLINIC NURSE procedure are i n the results section. MANUAL DIFFERENTIAL Now 08/20/2021 6:47 Resul ts for this PM LICENSED PRACTICAL NURSE CLINIC NURSE procedure are i n the results section. Results CBC Now 08/20/2021 6:47 Results for this PM LICENSED PRACTICAL NURSE CLINIC NURSE procedure are i n the results section. LIPASE LEVEL Now 08/20/2021 6:47 Results for this PM LICENSED PRACTICAL NURSE CLINIC NURSE procedure are i n the results section. AMYLASE LEVEL Now 08/20/2021 6:47 Results for this PM LICENSED PRACTICAL NURSE CLINIC NURSE procedure are i n the results section. LACTATE DEHYDROGENASE Now 08/20/2021 6:47 Res ults for this PM LICENSED PRACTICAL NURSE CLINIC NURSE procedure are i n the results section. PHOSPHORUS LEVEL Now 08/20/2021 6:47 Results for this PM LICENSED PRACTICAL NURSE CLINIC NURSE procedure are i n the results section. MAGNESIUM LEVEL Now 08/20/2021 6:47 Results f or this PM LICENSED PRACTICAL NURSE CLINIC NURSE procedure are i n the results section. COMPREHENSIVE METABOLIC Now 08/20/2021 6:47 PANEL PM LICENSED PRACTICAL NURSE CLINIC NURSE COMPLETE BLOOD COUNT W/ Now 08/20/2021 6:47 DIFFERENTIAL PM LICENSED PRACTICAL NURSE CLINIC NURSE URINALYSIS MICROSCOPIC Routine 08/14/2021 2:18 Re sults for this AM LICENSED PRACTICAL NURSE CLINIC NURSE procedure are i n the results section. URINE DRUG SCREEN Now 08/14/2021 2:18 Results for this CONFIRMATION AM LICENSED PRACTICAL NURSE CLINIC NURSE procedure are i n the results section. URINALYSIS WITH Now 08/14/2021 2:18 Results f or this MICROSCOPIC IF INDICATED AM LICENSED PRACTICAL NURSE CLINIC NURSE pro cedure are in the results section. EKG, 12-LEAD (PORTABLE) STAT 08/14/2021 CT ABDOMEN PELVIS W Routine 08/13/2021 11:01 Resu lts for this CONTRAST PM LICENSED PRACTICAL NURSE CLINIC NURSE procedure are i n the results section. XR CHEST 1 VW Routine 08/13/2021 9:33 Results for this PM LICENSED PRACTICAL NURSE CLINIC NURSE procedure are i n the results section. XR ABDOMEN 1 VW PORTABLE Routine 08/13/2021 9:33 Results for this PM LICENSED PRACTICAL NURSE CLINIC NURSE procedure are i n the results section. CT HEAD WO CONTRAST Routine 08/13/2021 9:26 Resul ts for this PM LICENSED PRACTICAL NURSE CLINIC NURSE procedure are i n the results section. TMP INTERPRETATION STAT 08/13/2021 8:52 Result s for this ANTIBODY SCREEN NEGATIVE PM LICENSED PRACTICAL NURSE CLINIC NURSE pro cedure are in the results section. CLOT EXPIRATION DATE STAT 08/13/2021 8:52 Resu lts for this PM LICENSED PRACTICAL NURSE CLINIC NURSE procedure are i n the results section. FRACTIONATED BILIRUBIN Now 08/13/2021 8:52 Re sults for this PM LICENSED PRACTICAL NURSE CLINIC NURSE procedure are i n the results section. TOTAL PROTEIN Now 08/13/2021 8:52 Results for this PM LICENSED PRACTICAL NURSE CLINIC NURSE procedure are i n the results section. ASPARTATE Now 08/13/2021 8:52 Results for this AMINOTRANSFERASE PM LICENSED PRACTICAL NURSE CLINIC NURSE procedure a re in the results section. ALANINE AMINOTRANSFERASE Now 08/13/2021 8:52 Results for this PM LICENSED PRACTICAL NURSE CLINIC NURSE procedure are i n the results section. ALKALINE PHOSPHATASE Now 08/13/2021 8:52 Resu lts for this PM LICENSED PRACTICAL NURSE CLINIC NURSE procedure are i n the results section. ALBUMIN LEVEL Now 08/13/2021 8:52 Results for this PM LICENSED PRACTICAL NURSE CLINIC NURSE procedure are i n the results section. CALCIUM LEVEL TOTAL Now 08/13/2021 8:52 Resul ts for this PM LICENSED PRACTICAL NURSE CLINIC NURSE procedure are i n the results section. .GLOMERULAR FILTRATION Now 08/13/2021 8:52 Re sults for this RATE PM LICENSED PRACTICAL NURSE CLINIC NURSE procedure are i n the results section. SERUM CREATININE Now 08/13/2021 8:52 Results for this PM LICENSED PRACTICAL NURSE CLINIC NURSE procedure are i n the results section. ELECTROLYTE PANEL Now 08/13/2021 8:52 Results for this PM LICENSED PRACTICAL NURSE CLINIC NURSE procedure are i n the results section. BLOOD UREA NITROGEN Now 08/13/2021 8:52 Resul ts for this PM LICENSED PRACTICAL NURSE CLINIC NURSE procedure are i n the results section. GLUCOSE LEVEL Now 08/13/2021 8:52 Results for this PM LICENSED PRACTICAL NURSE CLINIC NURSE procedure are i n the results section. MANUAL DIFFERENTIAL STAT 08/13/2021 8:52 Resul ts for this PM LICENSED PRACTICAL NURSE CLINIC NURSE procedure are i n the results section. Results CBC STAT 08/13/2021 8:52 Results for this PM LICENSED PRACTICAL NURSE CLINIC NURSE procedure are i n the results section. ANTIBODY SCREEN STAT 08/13/2021 8:52 Results f or this PM LICENSED PRACTICAL NURSE CLINIC NURSE procedure are i n the results section. ABORH STAT 08/13/2021 8:52 Results for this PM LICENSED PRACTICAL NURSE CLINIC NURSE procedure are i n the results section. CONFIRM ABORH TYPE STAT 08/13/2021 8:52 Result s for this PM LICENSED PRACTICAL NURSE CLINIC NURSE procedure are i n the results section. HEMOGLOBIN A1C Routine 08/13/2021 8:52 Results fo r this PM LICENSED PRACTICAL NURSE CLINIC NURSE procedure are i n the results section. THYROID STIMULATING Now 08/13/2021 8:52 Resul ts for this HORMONE PM LICENSED PRACTICAL NURSE CLINIC NURSE procedure are i n the results section. URIC ACID Now 08/13/2021 8:52 Results for this PM LICENSED PRACTICAL NURSE CLINIC NURSE procedure are i n the results section. LIPASE LEVEL Now 08/13/2021 8:52 Results for this PM LICENSED PRACTICAL NURSE CLINIC NURSE procedure are i n the results section. AMYLASE LEVEL Now 08/13/2021 8:52 Results for this PM LICENSED PRACTICAL NURSE CLINIC NURSE procedure are i n the results section. AMMONIA LEVEL Now 08/13/2021 8:52 Results for this PM LICENSED PRACTICAL NURSE CLINIC NURSE procedure are i n the results section. TYPE AND SCREEN STAT 08/13/2021 8:52 PM LICENSED PRACTICAL NURSE CLINIC NURSE APTT Now 08/13/2021 8:52 Results for this PM LICENSED PRACTICAL NURSE CLINIC NURSE procedure are i n the results section. PROTHROMBIN TIME Now 08/13/2021 8:52 Results for this PM LICENSED PRACTICAL NURSE CLINIC NURSE procedure are i n the results section. PHOSPHORUS LEVEL Now 08/13/2021 8:52 Results for this PM LICENSED PRACTICAL NURSE CLINIC NURSE procedure are i n the results section. MAGNESIUM LEVEL Now 08/13/2021 8:52 Results f or this PM LICENSED PRACTICAL NURSE CLINIC NURSE procedure are i n the results section. COMPREHENSIVE METABOLIC Now 08/13/2021 8:52 PANEL PM LICENSED PRACTICAL NURSE CLINIC NURSE COMPLETE BLOOD COUNT W/ Now 08/13/2021 8:52 DIFFERENTIAL PM LICENSED PRACTICAL NURSE CLINIC NURSE COVID-19 (SARS-COV-2) Now 08/13/2021 8:52 Res ults for this ASYMPTOMATIC-LT PM LICENSED PRACTICAL NURSE CLINIC NURSE procedure ar e in the results section. after 07/10/2021 Results MRI Breast Bilateral with and without Contrast incl CAD (12/16/2021 11:02 AM CDT) Anatomical Region Laterality Modality Breast Bilateral Magnetic Resonance Specimen (Source) Anatomical Collection Method Collection Time Re ceived Time Location / / Volume Laterality 12/16/2021 11:08 AM CDT Impressions 12/16/2021 1:42 PM CDT No MRI evidence of breast malignancy. No nspecific bilateral inframammary fold T2 hyperintensity and skin enhancement; recommend clinical correlation to exclude superficial inflammation versus infection. ACR BI-RADS Category: 2: Benign. Recommend clinical correlation. I personally reviewed these image(s) gagan ng with the resident's/fellow's interpretations, certify that if a procedure was performed I was physically present, and agree with the final report. Narrative 12/16/2021 1:42 PM CDT FULL RESULT: Examination: MRI BREAST BILATERAL W WO C ONTRAST INCL CAD, 12/16/2021 11:02 AM Clinical History: A 51-year-old woman wi th multiple comorbidities complains of bilateral breast pain and bilateral nipple discharge. Indication: Breast pain and nipple dis charge Comparison: No prior breast MRI for sahil [place]. Mammogram and ultrasound 09/16/2021. Technique: Under anesthesia, bilateral b reast MRI was performed before and after the administration of 8 mL of Gadavist intravenously per protocol. The following sequences were obtained on 3T GE : axi al noncontrast T1-weighted, axial pre- a nd 4 postcontrast dynamic series, and delayed postcontrast sagittal fat-suppressed T1-weighted, axial Crowder T2- weighted, axial DWI with ADC mapping, [b 100, 8 00]. Serial subtraction images were gene rated during post-processing. SkyhoodaCAD was used for kinetic assessment. Findings: The breast composition is almost entirel y fat. There is minimal symmetric early background parenchymal enhancement. Right breast: There is no suspicious mass or nonmass e nhancement. Right Mario Basins: There is no lymphadenopathy in the axill marcus or internal mammary regions. Left breast: There is no suspicious mass or nonmass e nhancement. Left Mario Basins: There is no lymphadenopathy in the axill marcus or internal mammary regions. Non-breast Findings: Fluid within the lower third of the esop hagus likely related to patient's anesthesia. Bilateral inframammary fold T2 hyperintensity and subtle cutaneous enhancement is nonspecific. Procedure Note Johnna Jarrett MD - 12/16/2021Formatti ng of this note might be different from the original. FULL RESULT: Examination: MRI BREAST BILATERAL W WO C ONTRAST INCL CAD, 12/16/2021 11:02 AM Clinical History: A 51-year-old woman wi th multiple comorbidities complains of bilateral breast pain and bilateral nipple discharge. Indication: Breast pain and nipple disch arge Comparison: No prior breast MRI for sahil [place]. Mammogram and ultrasound 09/16/2021. Technique: Under anesthesia, bilateral b reast MRI was performed before and after the administration of 8 mL of Gadavist intravenously per protocol. The following sequences were obtained on 3T GE : axial noncontrast T1-weighted, axial pre- and [address] dynamic series, and delayed postcontrast sagittal fat-suppressed T1-weighted, axial Crowder T2-weighted, axial DWI with ADC mapping, [b 100, 800]. Serial subtraction images were generated during post-proces sing. DynaCAD was used for kinetic assessment. Findings: The breast composition is almost entirel y fat. There is minimal symmetric early background parenchymal enhancement. Right breast: There is no suspicious mass or nonmass e nhancement. Right Mario Basins: There is no lymphadenopathy in the axill marcus or internal mammary regions. Left breast: There is no suspicious mass or nonmass e nhancement. Left Mario Basins: There is no lymphadenopathy in the axill marcus or internal mammary regions. Non-breast Findings: Fluid within the lower third of the esop hagus likely related to patient's anesthesia. Bilateral inframammary fold T2 hyperintensity and subtle cutaneous enhancement is nonspecific. IMPRESSION: No MRI evidence of breast malignancy. No nspecific bilateral inframammary fold T2 hyperintensity and skin enhancement; recommend clinical correlation to exclude superficial inflammation versus infection. ACR BI-RADS Category: 2: Benign. Recommend clinical correlation. I personally reviewed these image(s) gagan ng with the resident's/fellow's interpretations, certify that if a procedure was performed I was physically present, and agree with the final report. Cherrie Johnson JEWEL HOLE FINISH OPENER IMG MRI ORDERABLES COVID-19 (REENA-CoV-2) PCR Asymptomatic (12/14/2021 3:12 PM CDT) Component Value Ref Range Test Analysis Performed Pathologis t Method Time At Signature COVID19 SARS Pre-Out of OR [facility] MD Indication Procedure [facility] COVID19 SARS Not Detected Not [facility] MD Result Detected [facility] COVID19 SARS SARS-CoV-2 NOT Detected. UT Interpretation ERMINE Reference Range: Not Detected [facility] [[email or web address]] Methodology: The Zamorano Real Time SARS-CoV-2 assay is a qualitative real-time reverse qa tester polymerase chain reaction (florist supplies salesperson-PCR) test to detect RNA from SARS-CoV-2 in nasal, nasopharyngeal and oropharyngeal swabs from patients with signs and symptoms of infection who ar e suspected of COVID-19 by their health care provider. The Zamorano RealTime SARS-CoV-2 performed on the Socialite000 System is a dual target assay with primers and probes for the RdRp and N genes. Results must be interpreted within the context of all relevant clinical and laboratory findings, and epidemiological risk factors. Positive results are indicative of the presence of SARS-CoV-2 RNA; clinical correlation with patient history and other diagnostic information is ne cessary to determine patient infection status. Positive results do not rule out bacterial infection or co-infection with other viruses. Negative results do not preclude SARS- CoV-2 infection and should not be used as the sole basis for patient management decisions. The Zamorano RealTime SARS-CoV -2 assay is for in vitro diagnostic use under FDA Emergency Use Authorization only. Testing is limited to laboratories certified under the Clinical Laboratory Improvement Kimberley ndments of 1988 (CLIA), 42U.S.C. 263a, to perform high complexity tests. The T est was performed by the CLIA-certified, high- complexity Molecular Diagnostics Laboratory (MDL) at [facility] under the Food and Drug Administration (FDA) s Emergency Use Authorization. Factsheet for patients: https://www.[facility].org/AbbottFac tSheetPatients Factsheet for healthcare pro viders: https://www.[facility]erson.org/AbbottFactSheetHCP Test performed by: [facility] [address] [place] [address] Specimen (Source) Anatomical Collection Method Collection Time Re ceived Time Location / / Volume Laterality Nasopharyngeal Swab 12/14/2021 3:12 12/14 PM CDT 5:24 PM CDT Cherrie Johnson JEWEL HOLE FINISH OPENER MICROBIOLOGY - GENERAL ORDER GERALDO Performing Organization Address City/State/ZIP Code Phon e Number [facility] Unless otherwise noted, [place] [address] [place] all lab tests performed by: Division of Pathology and Laboratory Medicine [address] [facility] US Breast Complete Bilateral (09/16/2021 1:51 PM LICENSED PRACTICAL NURSE CLINIC NURSE) Anatomical Region Laterality Modality Breast Bilateral Ultrasound Specimen (Source) Anatomical Collection Method Collection Time Re ceived Time Location / / Volume Laterality 09/16/2021 2:20 PM LICENSED PRACTICAL NURSE CLINIC NURSE Impressions 09/16/2021 2:26 PM LICENSED PRACTICAL NURSE CLINIC NURSE 1. No suspicious sonographic findings are identified. Recommend clinical management of the patient's breast symptoms and erythema. 2. Left breast 6:00 skin lesion for wh ich clinical correlation and management is recommended. ACR BI-RADS Category: 2. Benign. Recommend annual mammography. Narrative 09/16/2021 2:26 PM LICENSED PRACTICAL NURSE CLINIC NURSE FULL RESULT: Examination: US BREAST COMPLETE BILATERA L 09/16/2021 1:51 PM Clinical History: 50-year-old woman with bilateral breast pain, possible bilateral nipple discharge described as yellow/purulent and bilateral inframammary fold erythema. Indication: Nipple discharge, pain, ernesto st erythema Comparison: Mammogram from today mammogr am from today Technique: Real-time sonographic imaging of both breasts (including all 4 quadrants and retroareolar region) was performed. Images were obtained in multiple scanning planes. Findings: No suspicious findings are identified in either breast. No sonographic correlate is identified for the reported bilateral nipple discharge and breast pain. No dilated retroareolar ducts are seen. An o sharif skin lesion is noted in the left nam ast at the 6:00 position, 7.5 cm from the nipple measuring 0.7 cm within the inframammary fold. Otherwise, there is no sonographic correlate for the erythema noted by history and physical exam bilaterally. Procedure Note Barb Skinner MD - 09/16/2021Formattin g of this note might be different from the original. FULL RESULT: Examination: US BREAST COMPLETE BILATERA L 09/16/2021 1:51 PM Clinical History: 50-year-old woman with bilateral breast pain, possible bilateral nipple discharge described as yellow/purulent and bilateral inframammary fold erythema. Indication: Nipple discharge, pain, ernesto st erythema Comparison: Mammogram from today mammogr am from today Technique: Real-time sonographic imaging of both breasts (including all 4 quadrants and retroareolar region) was performed. Images were obtained in multiple scanning planes. Findings: No suspicious findings are identified in either breast. No sonographic correlate is identified for the reported bilateral nipple discharge and breast pain. No dilated retroareolar ducts are seen. An oval skin lesion is noted in the left breast at the 6:00 position, 7.5 cm from the nipple measuring 0.7 cm within the inframammary fold. Otherwise, there is no sonographic correlate for the erythema noted by history and physical exam bilaterally. IMPRESSION: 1. No suspicious sonographic findings ar e identified. Recommend clinical management of the patient's breast symptoms and erythema. 2. Left breast 6:00 skin lesion for whic h clinical correlation and management is recommended. ACR BI-RADS Category: 2. Benign. Recommend annual mammography. Cherrie Johnson APN IMMis US ORDERABLES (ABNORMAL) Mammography Digital Diagnostic Bilateral (09/16/2021 12:38 PM LICENSED PRACTICAL NURSE CLINIC NURSE) Anatomical Region Laterality Modality Breast Bilateral Mammography Specimen (Source) Anatomical Collection Method Collection Time Re ceived Time Location / / Volume Laterality 09/16/2021 2:21 PM LICENSED PRACTICAL NURSE CLINIC NURSE Impressions 09/16/2021 2:21 PM LICENSED PRACTICAL NURSE CLINIC NURSE 1: Calcifications in both breasts are benign. 2: Bilateral breast symptoms require a dditional imaging evaluation. An ultrasound exam is recommended. BI-RADS Category 0: Incomplete: Needs Additional Imaging Kimi luation Narrative 09/16/2021 2:21 PM LICENSED PRACTICAL NURSE CLINIC NURSE CLINICAL INDICATION: Patient is a 51 year old female and is s een for nipple discharge MAMMO DIGITAL DIAGNOSTIC BILATERAL COMPARISON: No prior imaging studies are available f or comparison. FINDINGS: The breasts are almost entirely fatty. 1: There are benign appearing calcific ations in both breasts. 2: The patient reports bilateral pain and possible intermittent nipple discharge from both breasts which is karena cribed as yellow/purulent. The patient also has bilateral inframammary erythema . No suspicious mammographic finding is identified. An ultrasound exam is to fol low. Procedure Note Barb Skinner MD - 09/16/2021Formattin g of this note might be different from the original. CLINICAL INDICATION: Patient is a 51 year old female and is s een for nipple discharge MAMMO DIGITAL DIAGNOSTIC BILATERAL COMPARISON: No prior imaging studies are available f or comparison. FINDINGS: The breasts are almost entirely fatty. 1: There are benign appearing calcificat ions in both breasts. 2: The patient reports bilateral pain an d possible intermittent nipple discharge from both breasts which is karena cribed as yellow/purulent. The patient also has bilateral inframammary erythema . No suspicious mammographic finding is identified. An ultrasound exam is to fol low. IMPRESSION: 1: Calcifications in both breasts are be nign. 2: Bilateral breast symptoms require add itional imaging evaluation. An ultrasound exam is recommended. BI-RADS Category 0: Incomplete: Needs Additional Imaging Kimi luation Cherrie Johnson APN IMMis MAMMOGRAPHY ORDERABLES (ABNORMAL) Urinalysis with Microscopic (08/20/2021 9:29 PM LICENSED PRACTICAL NURSE CLINIC NURSE)Only the most recent of2 resultswithin the time period is included. athologist Signature UA WBC 5 (H) 0 - 2 /HPF [facility] UA RBC 1 0 - 2 /HPF [facility] UA Mucous NOT SEEN Not [facility] Seen-Trace [facility] [[email or web address]] /[facility] UA Bacteria 3+ (A) NOT SEEN [facility] UA Squam Epi OCC None-Occas [facility] ional /[facility] UA CaOx Mandy OCC (A) NOT SEEN [facility] Specimen Anatomical Collection Method Collection Time Receive d Time (Source) Location / / Volume Laterality Urine 08/20/2021 9:29 PM 2 9:34 LICENSED PRACTICAL NURSE CLINIC NURSE PM LICENSED PRACTICAL NURSE CLINIC NURSE Narrative [facility] - 2 9:45 PM LICENSED PRACTICAL NURSE CLINIC NURSE Some reporting parameters within the Urinalysis test have changed due to the implementation of new in strumentation in the Main [place], allowi ng greater sensitivity of measurement. Urinalysis results reported by the [facility] using existing instrumentation, as well as Urinalysis t esting performed manually or by backup methodology at the [facility] will remain relatively unchanged. New reporting parameters and units will now be reported for all campuses. Sheba Salas MD URINE ORDERABLES Performing Organization Address City/State/ZIP Code Phon e Number [facility] Unless otherwise noted, [address] all lab tests performed by: Division of Pathology and Laboratory Medicine [address] [place] (ABNORMAL) Urinalysis w/Microscopic if Indicated (08/20/2021 9:29 PM LICENSED PRACTICAL NURSE CLINIC NURSE)Only the most recent of2 resultswithin the time period is included. [facility] Method Time Signature UA Color Crystal (A) Straw-Yel [facility] UA Appear Clear Clear [facility] UA Glucose NEG NEG mg/dL [facility] UA Bili NEG NEG [facility] UA Ketones Trace (A) NEG mg/dL [facility] UA Spec Grav 1.005 1.003 - [facility] [address] [facility] UA Blood NEG NEG [facility] UA pH 6.0 5.0 - 9.0 [facility] UA Protein NEG NEG mg/dL [facility] UA Urobilinogen POS (A) NEG [facility] UA Nitrite POS (A) NEG [facility] UA Leuk Est NEG NEG [facility] Specimen Anatomical Collection Method Collection Time Receive d Time (Source) Location / / Volume Laterality Urine 08/20/2021 9:29 PM 9:33 LICENSED PRACTICAL NURSE CLINIC NURSE PM LICENSED PRACTICAL NURSE CLINIC NURSE Sheba Salas MD URINE ORDERABLES Performing Organization Address City/State/ZIP Code Phon e Number [facility] Unless otherwise noted, [address] all lab tests performed by: Division of Pathology and Laboratory Medicine [address] [place] (ABNORMAL) Urine Culture (08/20/2021 9:29 PM LICENSED PRACTICAL NURSE CLINIC NURSE) Component Value Ref Test Analysis Performed At [facility] Range Method Time Signature Final Report >= 100,000 cfu/ml [place] Escherichia coli ERMINE ([facility] Path Review - The results have been review ed and electronically signed by Pathologist: [place] Urine Dorothy Bowden MD, PhD #[id number] ERMINE ([facility] Organism Escherichia coli [facility] Specimen Anatomical Collection Method Collection Time Receive d Time (Source) Location / / Volume Laterality Urine 08/20/2021 9:29 08/20/2021 PM LICENSED PRACTICAL NURSE CLINIC NURSE 10:21 PM LICENSED PRACTICAL NURSE CLINIC NURSE Organism Antibiotic Method Susceptibility Escherichia coli *VIANNEY expressed in mcg/mL MINIMUM INHIBITORY VIANNEY : MINT CONCENTRATION Escherichia coli Ampicillin MINIMUM INHIBITORY 16: Intermed iate CONCENTRATION Escherichia coli Amoxicillin/Clavulanate MINIMUM INHIBITORY 4: S usceptible CONCENTRATION Escherichia coli Ampicillin/Sulbactam MINIMUM INHIBITORY 4: Susc eptible CONCENTRATION Escherichia coli Cephalothin MINIMUM INHIBITORY >=64: Resist ant CONCENTRATION Escherichia coli Cefpodoxime MINIMUM INHIBITORY 0.5: Suscept ible CONCENTRATION Escherichia coli Cefotaxime MINIMUM INHIBITORY <=1: Suscept ible CONCENTRATION Escherichia coli Ceftazidime MINIMUM INHIBITORY <=1: Suscept ible CONCENTRATION Escherichia coli Ceftriaxone MINIMUM INHIBITORY <=1: Suscept ible CONCENTRATION Escherichia coli Cefepime MINIMUM INHIBITORY <=1: Suscept ible CONCENTRATION Escherichia coli Aztreonam MINIMUM INHIBITORY <=1: Suscept ible CONCENTRATION Escherichia coli Ertapenem MINIMUM INHIBITORY <=0.5: Susce ptible CONCENTRATION Escherichia coli Imipenem MINIMUM INHIBITORY <=0.25: Susc eptible CONCENTRATION Escherichia coli Meropenem MINIMUM INHIBITORY <=0.25: Susc eptible CONCENTRATION Escherichia coli Amikacin MINIMUM INHIBITORY 4: Susceptib le CONCENTRATION Escherichia coli Gentamicin MINIMUM INHIBITORY <=1: Suscept ible CONCENTRATION Escherichia coli Tobramycin MINIMUM INHIBITORY <=1: Suscept ible CONCENTRATION Escherichia coli Ciprofloxacin MINIMUM INHIBITORY >=4: Resista nt CONCENTRATION Escherichia coli Levofloxacin MINIMUM INHIBITORY >=8: Resista nt CONCENTRATION Escherichia coli Nitrofurantoin MINIMUM INHIBITORY <=16: Suscep tible CONCENTRATION Escherichia coli Trimethoprim/Sulfa MINIMUM INHIBITORY <=20: Fatou ceptible CONCENTRATION Escherichia coli Piperacillin/Tazobactam ETEST 4: Susc eptible Sheba Salas MD MICROBIOLOGY - GENERAL ORDER GERALDO Performing Organization Address City/State/ZIP Code Phon e Number [place] MD [facility] Unless otherwise noted, [place], [place] [id number] [place] [address] all lab tests performed by: Division of Pathology and Laboratory Medicine [address] [place] (ABNORMAL) Wound Culture w/Gram Stain (08/20/2021 9:14 PM LICENSED PRACTICAL NURSE CLINIC NURSE) Component Value Ref Test Analysis Performed At [facility] Range Method Time Signature Final Report Few Actinobaculum edwardi MELISSA JEFFRIES Normal site kiara present. Normal kiara consists of CANCER Coryneform Bacteria like CENTE R Staphylococcus coagulase negative like and Staphylococcus coagulase negative of a second type. like (A) Path Review The results have been review ed and electronically signed by Pathologist: [place] MD Dorothy Bowden MD, PhD #[id number] ERMINE (A) [facility] [[email or web address]] Gram Stain Moderate WBC's seen MELISSA [place] Report Many Gram Positive Cocci MEHUL SON Many Gram Variable [facility] ([facility] C[facility] Specimen Anatomical Collection Method Collection Time Receive d Time (Source) Location / / Volume Laterality Wound (Breast, 08/20/2021 9:14 PM 022 9:26 Left) LICENSED PRACTICAL NURSE CLINIC NURSE PM LICENSED PRACTICAL NURSE CLINIC NURSE Comment: swab from under left breast Thomas Peña MD MICROBIOLOGY - GENERAL ORDER GERALDO Performing Organization Address City/State/ZIP Code Phon e Number [facility] Unless otherwise noted, [place] [address] [place] all lab tests performed by: Division of Pathology and Laboratory Medicine [address] [facility] COVID-19 (SARS-CoV-2)Asymptomatic-LT (08/20/2021 6:51 PM LICENSED PRACTICAL NURSE CLINIC NURSE)Only the most recent of2 resultswithin the time period is included. [facility] Method Time Signature COVID19 Not Detected Not Detected MELISSA WESTFALL (SARS-CoV-2) [facility] COVID19 SARS Inpatient MELISSA WESTFALL Indication Admission [facility] Covid 19 See Note MELISSA WESTFALL Comment [facility] Comment: The quin SARS-CoV-2 nucleic acid test f or use on the quin Brit System is a real-time RT-PCR assay intended for the qualitative detection of SARS-CoV-2 (COVID-19) viral RNA in nasopharyngeal swabs from either individuals suspected of COVID-1 9 by their healthcare provider or from any individu al, including individuals without symptoms or other reasons to suspect COVID-19. A fact sheet for patients provided by the power transformer repair supervisor ([employer]) can be reviewed at: https://www.fda.gov/media/236328/khalifloa d. A fact sheet for Health Care providers is provided by the power transformer repair supervisor ([employer]) and can be reviewed at: https://www.fda.gov/media/168220/download Results must be interpreted within the c ontext of all relevant clinical and laboratory findings and should not form the sole basis for a diagnosis or treatment decision. Positive results do not rule out bacterial infection or co- infection with other viruses. Negative results do not preclud e SARS-CoV-2 infection and must be combined with clinical observations, patient history, and/or epidemiological information. This assay has been authorized by the [facility] for use only under Emergency Use Authorization (EUA) in laboratories that have been CLIA-certified to perform moderate-complexity and high-complexity tests. The Microbiology Laboratory at [facility], CLIA Accreditation #[id number] a [facility] Accreditation #[id number], verified the performance characteristics of this assay. Internal controls are used to monitor all stages of the test process. Specimen (Source) Anatomical Collection Method Collection Time Re ceived Time Location / / Volume Laterality Nasopharyngeal Swab 08/20/2021 6:51 08/20 PM LICENSED PRACTICAL NURSE CLINIC NURSE 7:24 PM LICENSED PRACTICAL NURSE CLINIC NURSE Sheba Salas MD MICROBIOLOGY - GENERAL ORDER GERALDO Performing Organization Address City/[facility] Phon e Number [facility] Unless otherwise noted, [address] all lab tests performed by: Division of Pathology and Laboratory Medicine [address] [place] [address] (ABNORMAL) .Serum Creatinine (08/20/2021 6:47 PM LICENSED PRACTICAL NURSE CLINIC NURSE)Only the most recent of2 resultswithin the time period is included. athologist Signature Creatinine 0.39 (L) 0.51 - 0.95 [facility] mg/dL [facility] [[email or web address]] Specimen Anatomical Collection Method Collection Time Receive d Time (Source) Location / / Volume Laterality Blood 08/20/2021 6:47 PM 6:57 LICENSED PRACTICAL NURSE CLINIC NURSE PM LICENSED PRACTICAL NURSE CLINIC NURSE Sheba Salas MD LAB BLOOD ORDERABLES Performing Organization Address City/[facility] [place] Phon e Number [facility] Unless otherwise noted, [address] all lab tests performed by: Division of Pathology and Laboratory Medicine [address] [place] [address] (ABNORMAL) .CBC (08/20/2021 6:47 PM LICENSED PRACTICAL NURSE CLINIC NURSE)Only the most recent of2 resultswithin the time period is included. P athologist Signature WBC 12.6 (H) 4.0 - 11.0 NV MD K/uL [facility] RBC 4.48 4.00 - NV MD 5.50 M/uL [facility] Hgb 13.1 12.0 - NV MD 16.0 gm/dL [facility] Hct 40.6 37.0 - NV MD 47.0 % [facility] MCV 91 82 - 98 [facility] MCH 29.2 27.0 - NV MD 31.[address] [facility] MCHC 32.3 31.0 - NV 36.0 gm/dL [facility] RDW-SD 54.7 (H) 35.1 - NV 46.[address] [facility] RDW-CV 16.5 (H) 12.0 - NV 15.5 % [facility] Platelet count 202 140 - 440 NV K/uL [facility] MPV 10.9 (H) 4.0 - 10.4 [facility] INRBC 0.0 <=0.0 % [facility] Comment: The INRBC (instrument NRBC) value reflec ts the enumeration of nucleated red blood cells contained i n a 200uL sample of whole blood analyzed by the instrumen t. This value may differ from the NRBC value reported in a manual differential, which is based on a 100 cell differentia l. Specimen Anatomical Collection Method Collection Time Receive d Time (Source) Location / / Volume Laterality Blood 08/20/2021 6:47 PM 2 6:51 LICENSED PRACTICAL NURSE CLINIC NURSE PM LICENSED PRACTICAL NURSE CLINIC NURSE Sheba Salas MD LAB BLOOD ORDERABLES Performing Organization Address City/State/ZIP Code Phon e Number [facility] Unless otherwise noted, [place] [address] [place] all lab tests performed by: Division of Pathology and Laboratory Medicine [address] [place] [address] Glomerular Filtration Rate (08/20/2021 6:47 PM LICENSED PRACTICAL NURSE CLINIC NURSE)Only the most recent of2 resultswithin the time period is included. athologist Signature eGFR-AA 139 >=60 [facility] mL/min/1.73 [facility] [[email or web address]] sq. m Comment: Normal eGFR: >= 60 mL/min/1.73 m2 Note: The eGFR is calculated using the C KD-EPI equation. The eGFR declines with age. eGFR <60 mL/min/1.73 m2 is considered as "decreased". This equation should only be used for patients 18 and older. According to the National Kid[employer] ion's Kidney Disease Outcome Quality Initiative (KDOQI) classification and 2012 Kidney Disease Improving Global Outcomes (KDIGO) Clinical Practice Guideline, the stage of CKD should be categorized based on estimated GFR. Stage Description GFR mL/min/1. 73 m2 1 Normal or high GFR >=90 2 Mildly decreased GFR 60-89 3a Mildly to moderately decreased GFR 45-59 3b Moderately to severely decreased GFR 30-44 4 Severely decreased GFR 15-29 5 Kidney failure <15 eGFR-CHELSEA 120 >=60 mL/min/1.73 sq. m NV MD Silver [facility] Comment: Normal eGFR: >= 60 mL/min/1.73 m2 Note: The eGFR is calculated using the C KD-EPI equation. The eGFR declines with age. eGFR <60 mL/min/1.73 m2 is considered as "decreased". This equation should only be used for patients 18 and older. According to the National Kidney Found[employer] ion's Kidney Disease Outcome Quality Initiative (KDOQI) classification and 2012 Kidney Disease Improving Global Outcomes (KDIGO) Clinical Practice Guideline, the stage of CKD should be categorized based on estimated GFR. Stage Description GFR mL/min/1. 73 m2 1 Normal or high GFR >=90 2 Mildly decreased GFR 60-89 3a Mildly to moderately decreased GFR 45-59 3b Moderately to severely decreased GFR 30-44 4 Severely decreased GFR 15-29 5 Kidney failure <15 Specimen Anatomical Collection Method Collection Time Receive d Time (Source) Location / / Volume Laterality Blood 08/20/2021 6:47 PM 2 6:57 LICENSED PRACTICAL NURSE CLINIC NURSE PM LICENSED PRACTICAL NURSE CLINIC NURSE Sheba Salas MD LAB BLOOD ORDERABLES Performing Organization Address City/State/ZIP Code Phon e Number [facility] Unless otherwise noted, [place] [address] [place] all lab tests performed by: Division of Pathology and Laboratory Medicine [address] [place] [address] Fractionated Bilirubin (08/20/2021 6:47 PM LICENSED PRACTICAL NURSE CLINIC NURSE)Only the most recent of2 results within the time period is included. athologist Signature Bili Total 0.4 <=1.2 mg/dL [facility] Comment: Indocyanine Green (ICG) may cause falsel y elevated bilirubin results. Total and direct bilirubin must not be measured from samples containing indocyanine green. False elevation of total bilirubin can b e seen in patients with IgG concentrations above 28 g/L. Bili Direct <0.2 <=0.3 mg/dL [facility] Comment: Indocyanine Green (ICG) may cau se falsely elevated bilirubin results. Total and direct bilirubin must not be measure d from samples containing indocyanine green. Bili Indirect See Note 0.0 - 0.9 mg/dL NV MD ROSSI KEYA [facility] [[email or web address]] Comment: Unable to calculate Indirect Bi lirubin result due to some parameters are outside reportable range Specimen Anatomical Collection Method Collection Time Receive d Time (Source) Location / / Volume Laterality Blood 08/20/2021 6:47 PM 6:57 LICENSED PRACTICAL NURSE CLINIC NURSE PM LICENSED PRACTICAL NURSE CLINIC NURSE Sheba Salas MD LAB BLOOD ORDERABLES Performing Organization Address City/State/ZIP Code Phon e Number [facility] Unless otherwise noted, [place] [address] [place] all lab tests performed by: Division of Pathology and Laboratory Medicine [address] (ABNORMAL) Differential (08/20/2021 6:47 PM LICENSED PRACTICAL NURSE CLINIC NURSE)Only the most recent of2 results within the time period is included. athologist Signature Neutrophil % 77.8 (H) 42.0 - [facility] 66.0 % [facility] Lymphocyte % 15.8 (L) 24.0 - [facility] 44.0 % [facility] Monocyte % 5.5 2.0 - 7.0 [facility] % [facility] Eosinophil % 0.1 (L) 1.0 - 4.0 [facility] % [facility] Basophil % 0.3 0.0 - 1.0 [facility] IGRE % 0.5 (H) 0.0 - 0.4 [facility] % [facility] Comment: IGRE % count includes Metamyelo cytes, Myelocytes, and Promyelocytes. Neutrophil Abs 9.84 (H) 1.70 - 7.30 K/uL [facility] Lymphocyte Abs 1.99 1.00 - 4.80 K/uL [facility] Monocyte Abs 0.69 0.08 - 0.70 K/uL NV MD ROSSI [facility] Eosinophil Abs 0.01 (L) 0.04 - 0.40 K/uL [facility] Basophil Abs 0.04 0.00 - 0.10 K/uL NV MD ROSSI [facility] IG Abs 0.06 (H) 0.00 - 0.04 K/uL NV MD STERLING Tatum [facility] [[email or web address]] Specimen Anatomical Collection Method Collection Time Receive d Time (Source) Location / / Volume Laterality Blood 08/20/2021 6:47 PM 2 6:51 LICENSED PRACTICAL NURSE CLINIC NURSE PM LICENSED PRACTICAL NURSE CLINIC NURSE Sheba Salas MD LAB BLOOD ORDERABLES Performing Organization Address City/[facility] [place]/[facility] Phon e Number [facility] Unless otherwise noted, [address] all lab tests performed by: Division of Pathology and Laboratory Medicine [address] (ABNORMAL) BUN (08/20/2021 6:47 PM LICENSED PRACTICAL NURSE CLINIC NURSE)Only the most recent of2 resultswithin the time period is included. athologist Signature BUN <4 (L) 6 - 23 [facility] mg/dL [facility] [[email or web address]] Specimen Anatomical Collection Method Collection Time Receive d Time (Source) Location / / Volume Laterality Blood 08/20/2021 6:47 PM 2 6:57 LICENSED PRACTICAL NURSE CLINIC NURSE PM LICENSED PRACTICAL NURSE CLINIC NURSE Sheba Salas MD LAB BLOOD ORDERABLES Performing Organization Address [facility] [place]/[facility] Phon e Number [facility] Unless otherwise noted, [address] all lab tests performed by: Division of Pathology and Laboratory Medicine [address] ALT (08/20/2021 6:47 PM LICENSED PRACTICAL NURSE CLINIC NURSE)Only the most recent of2 resultswithin the time period is included. athologist Signature ALT 22 <=33 U/L [facility] Specimen Anatomical Collection Method Collection Time Receive d Time (Source) Location / / Volume Laterality Blood 08/20/2021 6:47 PM 2 6:57 LICENSED PRACTICAL NURSE CLINIC NURSE PM LICENSED PRACTICAL NURSE CLINIC NURSE Sheba Salas MD LAB BLOOD ORDERABLES Performing Organization Address City/[facility] [place]/[facility] Phon e Number [facility] Unless otherwise noted, [address] all lab tests performed by: Division of Pathology and Laboratory Medicine [address] Aspartate Aminotransferase (08/20/2021 6:47 PM LICENSED PRACTICAL NURSE CLINIC NURSE)Only the most recent of2 resultswithin the time period is included. athologist Signature AST 27 <=32 U/L [facility] Comment: Specimen is hemolyzed. Results may be falsely elevated. Repeat test if needed. Specimen Anatomical Collection Method Collection Time Receive d Time (Source) Location / / Volume Laterality Blood 08/20/2021 6:47 PM 2 6:57 LICENSED PRACTICAL NURSE CLINIC NURSE PM LICENSED PRACTICAL NURSE CLINIC NURSE Sheba Salas MD LAB BLOOD ORDERABLES Performing Organization Address City/[facility] [place]/ZIP [facility] Phon e Number [facility] Unless otherwise noted, [address] all lab tests performed by: Division of Pathology and Laboratory Medicine [address] Total Protein (08/20/2021 6:47 PM LICENSED PRACTICAL NURSE CLINIC NURSE)Only the most recent of2 resultswithin the time period is included. P athologist Signature Total Protein 7.4 6.4 - 8.3 [facility] g/dL [facility] [[email or web address]] Specimen Anatomical Collection Method Collection Time Receive d Time (Source) Location / / Volume Laterality Blood 08/20/2021 6:47 PM 2 6:57 LICENSED PRACTICAL NURSE CLINIC NURSE PM LICENSED PRACTICAL NURSE CLINIC NURSE Sheba Salas MD LAB BLOOD ORDERABLES Performing Organization Address City/[facility] [place]/[facility] Phon e Number [facility] Unless otherwise noted, [address] all lab tests performed by: Division of Pathology and Laboratory Medicine [address] [place] Phosphorus Level (08/20/2021 6:47 PM LICENSED PRACTICAL NURSE CLINIC NURSE)Only the most recent of2 resultswithin the time period is included. P athologist Signature Phosphorus 3.4 2.5 - 4.5 [facility] mg/dL [facility] [[email or web address]] Specimen Anatomical Collection Method Collection Time Receive d Time (Source) Location / / Volume Laterality Blood 08/20/2021 6:47 PM 2 6:57 LICENSED PRACTICAL NURSE CLINIC NURSE PM LICENSED PRACTICAL NURSE CLINIC NURSE Sheba Salas MD LAB BLOOD ORDERABLES Performing Organization Address City/[facility] [place]/[facility] Phon e Number [facility] Unless otherwise noted, [address] all lab tests performed by: Division of Pathology and Laboratory Medicine [address] [place] Alkaline Phosphatase (08/20/2021 6:47 PM LICENSED PRACTICAL NURSE CLINIC NURSE)Only the most recent of2 results within the time period is included. P athologist Signature Alk Phos 91 35 - 104 [facility] U/L [facility] [[email or web address]] Specimen Anatomical Collection Method Collection Time Receive d Time (Source) Location / / Volume Laterality Blood 08/20/2021 6:47 PM 2 6:57 LICENSED PRACTICAL NURSE CLINIC NURSE PM LICENSED PRACTICAL NURSE CLINIC NURSE Sheba Salas MD LAB BLOOD ORDERABLES Performing Organization Address [facility] [place]/[facility] Phon e Number [facility] Unless otherwise noted, [address] all lab tests performed by: Division of Pathology and Laboratory Medicine [address] [place] Magnesium Level (08/20/2021 6:47 PM LICENSED PRACTICAL NURSE CLINIC NURSE)Only the most recent of2 resultswithin the time period is included. athologist [facility] Magnesium 1.7 1.6 - 2.6 [facility] mg/dL [facility] [[email or web address]] Specimen Anatomical Collection Method Collection Time Receive d Time (Source) Location / / Volume Laterality Blood 08/20/2021 6:47 PM 2 6:57 LICENSED PRACTICAL NURSE CLINIC NURSE PM LICENSED PRACTICAL NURSE CLINIC NURSE Sheba Salas MD LAB BLOOD ORDERABLES Performing Organization Address [facility] [place]/[facility] Phon e Number [facility] Unless otherwise noted, [address] all lab tests performed by: Division of Pathology and Laboratory Medicine [address] [place] Lipase (08/20/2021 6:47 PM LICENSED PRACTICAL NURSE CLINIC NURSE)Only the most recent of2 resultswithin the time period is included. athologist [facility] Lipase Lvl 24 13 - 60 U/L [facility] Specimen Anatomical Collection Method Collection Time Receive d Time (Source) Location / / Volume Laterality Blood 08/20/2021 6:47 PM 2 6:57 LICENSED PRACTICAL NURSE CLINIC NURSE PM LICENSED PRACTICAL NURSE CLINIC NURSE Sheba Salas MD LAB BLOOD ORDERABLES Performing Organization Address City/[facility] [place]/[facility] Phon e Number [facility]CER Unless otherwise noted, [address] all lab tests performed by: Division of Pathology and Laboratory Medicine [address] [place] (ABNORMAL) LDH (08/20/2021 6:47 PM LICENSED PRACTICAL NURSE CLINIC NURSE) athologist Signature LDH 355 (H) 135 - 214 [facility] U/L [facility] [[email or web address]] Comment: Specimen is hemolyzed. Results may be fa lsely elevated. Repeat test if needed. Results greater than 1651 U/L may not be reliable due to matrix effect with extended dilution as it exceeds the power transformer repair supervisor s recommended limit. Caution should be exercised when interpreting such sharif ues and done in conjunction with clinica l context. Specimen Anatomical Collection Method Collection Time Receive d Time (Source) Location / / Volume Laterality Blood 08/20/2021 6:47 PM 2 6:57 LICENSED PRACTICAL NURSE CLINIC NURSE PM LICENSED PRACTICAL NURSE CLINIC NURSE Sheba Salas MD LAB BLOOD ORDERABLES Performing Organization Address City/State/ZIP [facility] Phon e Number [facility] CANCER Unless otherwise noted, [address] all lab tests performed by: Division of Pathology and Laboratory Medicine [address] [place] Glucose Level (08/20/2021 6:47 PM LICENSED PRACTICAL NURSE CLINIC NURSE)Only the most recent of2 resultswithin the time period is included. athologist Signature Glucose Level 96 70 - 99 [facility] mg/dL [facility] [[email or web address]] Comment: Effective 02/23/16, the glucose reference intervals have been updated based on [place] [employer] guidelines (Standards of Medical Care in Diabetes 2016. Diabetes Care 2016; 39: S13-S22). Fasting blood glucose: Normal: 70-99 mg/dL Impaired fasting glucose (increased risk for diabetes or pre-diabetes): 100- 125 mg/dL Diabetes mellitus: >/=126 mg/dL Random blood glucose: Normal: 70-199 mg/dL Note: Random glucose >100 mg/dL is assoc iated with increased risk for diabetes Specimen Anatomical Collection Method Collection Time Receive d Time (Source) Location / / Volume Laterality Blood 08/20/2021 6:47 PM 2 6:57 LICENSED PRACTICAL NURSE CLINIC NURSE PM LICENSED PRACTICAL NURSE CLINIC NURSE Sheba Salas MD LAB BLOOD ORDERABLES Performing Organization Address City/State/ZIP Code Phon e Number [facility] CANCER Unless otherwise noted, [address] all lab tests performed by: Division of Pathology and Laboratory Medicine [address] Calcium Level (08/20/2021 6:47 PM LICENSED PRACTICAL NURSE CLINIC NURSE)Only the most recent of2 resultswithin the time period is included. athologist Signature Calcium Lvl 8.9 8.4 - 10.2 [facility] mg/dL [facility] Specimen Anatomical Collection Method Collection Time Receive d Time (Source) Location / / Volume Laterality Blood 08/20/2021 6:47 PM 2 6:57 LICENSED PRACTICAL NURSE CLINIC NURSE PM LICENSED PRACTICAL NURSE CLINIC NURSE Sheba Salas MD LAB BLOOD ORDERABLES Performing Organization Address City/[facility] [place]/ZIP [facility] Phon e Number [facility] CANCER Unless otherwise noted, [address] all lab tests performed by: Division of Pathology and Laboratory Medicine [address] [place] (ABNORMAL) Amylase (08/20/2021 6:47 PM LICENSED PRACTICAL NURSE CLINIC NURSE)Only the most recent of2 results within the time period is included. P athologist Signature Amylase Lvl 19 (L) 28 - 100 [facility] U/L [facility] [[email or web address]] Specimen Anatomical Collection Method Collection Time Receive d Time (Source) Location / / Volume Laterality Blood 08/20/2021 6:47 PM 2 6:57 LICENSED PRACTICAL NURSE CLINIC NURSE PM LICENSED PRACTICAL NURSE CLINIC NURSE Sheba Salas MD LAB BLOOD ORDERABLES Performing Organization Address [facility] [place]/[facility] Phon e Number [facility] Unless otherwise noted, [address] all lab tests performed by: Division of Pathology and Laboratory Medicine [address] Albumin Level (08/20/2021 6:47 PM LICENSED PRACTICAL NURSE CLINIC NURSE)Only the most recent of2 resultswithin the time period is included. athologist Signature Albumin Lvl 4.0 3.5 - 5.2 [facility] gm/dL [facility] [[email or web address]] Specimen Anatomical Collection Method Collection Time Receive d Time (Source) Location / / Volume Laterality Blood 08/20/2021 6:47 PM 2 6:57 LICENSED PRACTICAL NURSE CLINIC NURSE PM LICENSED PRACTICAL NURSE CLINIC NURSE Sheba Salas MD LAB BLOOD ORDERABLES Performing Organization Address City/[facility] [place]/[facility] Phon e Number [facility] CANCER Unless otherwise noted, [address] all lab tests performed by: Division of Pathology and Laboratory Medicine [address] (ABNORMAL) Electrolyte Panel (08/20/2021 6:47 PM LICENSED PRACTICAL NURSE CLINIC NURSE)Only the most recent of2 resultswithin the time period is included. P athologist Signature Sodium Lvl 128 (L) 136 - 145 [facility] mEq/L [facility] [[email or web address]] Potassium Lvl 4.2 3.5 - 5.1 [facility] mEq/L [facility] [[email or web address]] Comment: Specimen is hemolyzed. Results may be falsely elevated. Repeat test if needed. Chloride 91 (L) 98 - 107 mEq/L [facility] CO2 19 (L) 22 - 29 mEq/L [facility] C [facility] Anion Gap 18 (H) 4 - 14 mEq/L [facility] Specimen Anatomical Collection Method Collection Time Receive d Time (Source) Location / / Volume Laterality Blood 08/20/2021 6:47 PM 2 6:57 LICENSED PRACTICAL NURSE CLINIC NURSE PM LICENSED PRACTICAL NURSE CLINIC NURSE Sheba Salas MD LAB BLOOD ORDERABLES Performing Organization Address City/State/ZIP Code Phon e Number [facility] Unless otherwise noted, [place] [address] [place] all lab tests performed by: Division of Pathology and Laboratory Medicine [address] (ABNORMAL) Urine Drug Screen STAT, Qualitative, Without Confirmation (08/14/2021 2:18 AM LICENSED PRACTICAL NURSE CLINIC NURSE) [facility] gist Method Time Signature U Amph Scr Negative Negative [facility] U Corie Scr Negative Negative [facility] U Benzodia Scr Positive (A) Negative [facility] U Cannab Scr Negative Negative [facility] U Cocaine Scr Negative Negative [facility] U Methadone Negative Negative [facility] U Opiate Scr Positive (A) Negative [facility] U PCP Scr Negative Negative [facility] U Propoxyphene Negative Negative [facility] Comment: Drugs reported as positive have not been confirmed by a second method and should be used for medical purpose only. To order confirmation testing, contact laboratory. note: Below are cut-off Concentrations for all urine drugs of abuse performed in the laboratory. Any value below the cut-off is considered negative. Some drugs listed in the table may not b e included in this panel. Amphetamine 1000 ng/mL Barbituates 200 ng/mL Benzodiazepines 200 ng/mL Cocaine metabolites 300 ng/mL Opiates 300 ng/mL Phencyclidine 25 ng/mL Propoxyphene 300 ng/mL Marijuana Metabolites 50 ng/mL Methadone 300 ng/mL Urine alcohol 20 ng/mL Performing Site: [facility], [facility], [address], [place], [address]. Specimen Anatomical Collection Method Collection Time Receive d Time (Source) Location / / Volume Laterality Urine 08/14/2021 2:18 AM 2 3:21 LICENSED PRACTICAL NURSE CLINIC NURSE AM LICENSED PRACTICAL NURSE CLINIC NURSE Osvaldo Vidal MD URINE ORDERABLES Performing Organization Address City/State/ZIP Code Phon e Number [facility] CANCER Unless otherwise noted, [place] [address] CENTER all lab tests performed by: Division of Pathology and Laboratory Medicine [address] EKG, 12-Lead (Portable) (08/14/2021) Specimen (Source) Anatomical Location Collection Method / Collectio n Time Received Time / Laterality Volume Narrative This result has an attachment that is no t available. Osvaldo Vidal MD ECG ORDERABLES Performing Organization Address City/State/ZIP Code Phon e Number [facility] CT Abdomen Pelvis with Contrast (08/13/2021 11:01 PM LICENSED PRACTICAL NURSE CLINIC NURSE) Anatomical Region Laterality Modality Abdomen, Pelvis Computed Tomography Specimen (Source) Anatomical Collection Method Collection Time Re ceived Time Location / / Volume Laterality 08/13/2021 11:35 PM LICENSED PRACTICAL NURSE CLINIC NURSE Impressions 08/14/2021 8:21 AM LICENSED PRACTICAL NURSE CLINIC NURSE 1. Small focus of gas in the anterior bladder which could be related to recent catheterization/cystitis. Recommend clinical correlation and correlation with urinalysis. No other acute abnormality in the abdomen and pelvis. 2. No suspicious mass in the abdomen a nd pelvis. 3. No intra-abdominal/intrapelvic meta static disease. I personally reviewed these image(s) gagan santoyo with the resident's/fellow's interpretations, certify that if a procedure was performed I was physically present, and agree with the final report. Narrative 08/14/2021 8:21 AM LICENSED PRACTICAL NURSE CLINIC NURSE FULL RESULT: Examination: CT ABDOMEN PELVIS W CONTRAS T, 08/13/2021 11:01 PM Clinical History: History of endometrios is, status post hysterectomy and bilateral salpingooophorectomy Chronic pain Moderate dehydration Tobacco dependence syndrome Personality disorder Abdominal pain Indication:. The patient presented to [facility] emergency room with acute abdominal pain and back pain. Abdominal pain r/o mets Comparison: CT abdomen and pelvis October 2016 Technique: CT of the abdomen and pelvis was performed with intravenous contrast. Findings: No suspicious focal liver pare nchymal lesions are identified. Focal areas of fatty infiltration along the falciform ligament, gallbladder fossa and central portal venous branches. A 0.8 cm cys t is seen in the right liver segment 6 ( series 5, image 44). Focal nodular thickening of the gallblad sylvia fundal wall measuring up to 1 x 0.5 cm is stable compared to 10/30/2016 and most likely represents focal adenomyomatosis (series 5 image 55). The adrenal glands, pancreas, spleen are unremarkable. With minimal scarring is seen in the right kidney interpolar cortex. The kidneys are otherwise unremarkable without any focal renal masses, hydronephrosis or hydroureter. The abdominal aorta and IVC demonstrate normal course and caliber. Mild atherosclerotic calcific effusions of the abdominal aorta are seen. No suspicious retroperitoneal or intrapelvic lymphadenopathy is seen. No abnormally dilated small bowel or lar ge bowel loops are seen. A normal appendix is seen in the right lower quadrant.. The uterus and both ovaries have been re sected. The urinary bladder is well- distended and shows a small focus of air along the dome. No perivesical fat stranding is seen. No suspicious osseous lesions are identi fied. No suspicious pulmonary parenchymal nodu les or masses are identified. Minimal bibasilar atelectasis is seen. No pleural effusions are seen. Procedure Note Carmelita Clinton MD - 08/14/2021Forma tting of this note might be different from the original. FULL RESULT: Examination: CT ABDOMEN PELVIS W SILVANA T, 08/13/2021 11:01 PM Clinical History: History of endometrios is, status post hysterectomy and bilateral salpingooophorectomy Chronic pain Moderate dehydration Tobacco dependence syndrome Personality disorder Abdominal pain Indication:. The patient presented to [facility] emergency room with acute abdominal pain and back pain. Abdominal pain r/o mets Comparison: CT abdomen and pelvis October 2016 Technique: CT of the abdomen and pelvis was performed with intravenous contrast. Findings: No suspicious focal liver pare nchymal lesions are identified. Focal areas of fatty infiltration along the falciform ligament, gallbladder fossa and central portal venous branches. A 0.8 cm cyst is seen in the right liver segment 6 (serie s 5, image 44). Focal nodular thickening of the gallblad sylvia fundal wall measuring up to 1 x 0.5 cm is stable compared to 10/30/2016 and most likely represents focal adenomyomatosis (series 5 image 55). The adrenal glands, pancreas, spleen are unremarkable. With minimal scarring is seen in the right kidney interpolar cortex. The kidneys are otherwise unremarkable without any focal renal masses, hydronephrosis or hydroureter. The abdominal aorta and IVC demonstrate normal course and caliber. Mild atherosclerotic calcific effusions of the abdominal aorta are seen. No suspicious retroperitoneal or intrapelvic lymphadenopathy is seen. No abnormally dilated small bowel or lar ge bowel loops are seen. A normal appendix is seen in the right lower quadrant.. The uterus and both ovaries have been re sected. The urinary bladder is well- distended and shows a small focus of air along the dome. No perivesical fat stranding is seen. No suspicious osseous lesions are identi fied. No suspicious pulmonary parenchymal nodu les or masses are identified. Minimal bibasilar atelectasis is seen. No pleural effusions are seen. IMPRESSION: 1. Small focus of gas in the anterior bl adder which could be related to recent catheterization/cystitis. Recommend clinical correlation and correlation with urinalysis. No other acute abnormality in the abdomen and pelvis. 2. No suspicious mass in the abdomen and pelvis. 3. No intra-abdominal/intrapelvic metast atic disease. I personally reviewed these image(s) gagan santoyo with the resident's/fellow's interpretations, certify that if a procedure was performed I was physically present, and agree with the final report. Osvaldo Vidal MD IMG CT ORDERABLES X-ray Chest 1 View (08/13/2021 9:33 PM LICENSED PRACTICAL NURSE CLINIC NURSE) Anatomical Region Laterality Modality Chest Digital Radiography Specimen (Source) Anatomical Collection Method Collection Time Re ceived Time Location / / Volume Laterality 08/13/2021 9:59 PM LICENSED PRACTICAL NURSE CLINIC NURSE Impressions 08/13/2021 10:01 PM LICENSED PRACTICAL NURSE CLINIC NURSE Intact chest with no consolidations or lobar pneumonia and no significant change compared to topogram chest January 30, 2017. Narrative 08/13/2021 10:01 PM LICENSED PRACTICAL NURSE CLINIC NURSE FULL RESULT: Examination: XR CHEST 1 VW, 08/13/2021 9: 33 PM Clinical History: Endometrial carcinoma Indication: Altered Mental Status, Suspe cted COVID-19, Results Pending, 7 Comparison: Chest CT and topogram chest January 30, 2017 Technique: Anteroposterior radiograph of the chest. Findings: The lungs are clear. There is no pleural effusion or pneumothorax. There is no mediastinal or hilar adenopathy. Cardiac silhouette is normal. Procedure Note Pedro Kern MD - 08/13/2021Formattin g of this note might be different from the original. FULL RESULT: Examination: XR CHEST 1 VW, 08/13/2021 9: 33 PM Clinical History: Endometrial carcinoma Indication: Altered Mental Status, Suspe cted COVID-19, Results Pending, 7 Comparison: Chest CT and topogram chest January 30, 2017 Technique: Anteroposterior radiograph of the chest. Findings: The lungs are clear. There is no pleural effusion or pneumothorax. There is no mediastinal or hilar adenopathy. Cardiac silhouette is normal. IMPRESSION: Intact chest with no consolidations or l obar pneumonia and no significant change compared to topogram chest January 30, 2017. Osvaldo Vidal MD IMG DIAGNOSTIC IMAGING ORDER GERALDO X-ray Abdomen 1 View Portable (08/13/2021 9:33 PM LICENSED PRACTICAL NURSE CLINIC NURSE) Anatomical Region Laterality Modality Abdomen Digital Radiography Specimen (Source) Anatomical Collection Method Collection Time Re ceived Time Location / / Volume Laterality 08/13/2021 10:16 PM LICENSED PRACTICAL NURSE CLINIC NURSE Impressions 08/14/2021 7:30 AM LICENSED PRACTICAL NURSE CLINIC NURSE No radiographic evidence of intestinal obstruction. I personally reviewed these image(s) gagan ng with the resident's/fellow's interpretations, certify that if a procedure was performed I was physically present, and agree with the final report. Narrative 08/14/2021 7:30 AM LICENSED PRACTICAL NURSE CLINIC NURSE FULL RESULT: Examination: XR ABDOMEN 1 VW PORTABLE on 08/13/2021 9:33 PM Clinical History: Endometriosis, status post hysterectomy and bilateral salpingo-oophorectomy Indication: Abdominal Pain Comparison: CT abdomen and pelvis 10/31/19 Technique: XR ABDOMEN 1 VW PORTABLE Findings: The stomach shadow is unremark able. There is overall nonspecific paucity of small bowel bowel gas, particularly in the left hemiabdomen. The visualized small bowel and colon show normal rut marcelo. The regional skeleton is unremarkab le. The lung bases are clear. Procedure Note Carmelita Clinton MD - 08/14/2021Forma tting of this note might be different from the original. FULL RESULT: Examination: XR ABDOMEN 1 VW PORTABLE on 08/13/2021 9:33 PM Clinical History: Endometriosis, status post hysterectomy and bilateral salpingo-oophorectomy Indication: Abdominal Pain Comparison: CT abdomen and pelvis 10/31/19 Technique: XR ABDOMEN 1 VW PORTABLE Findings: The stomach shadow is unremark able. There is overall nonspecific paucity of small bowel bowel gas, particularly in the left hemiabdomen. The visualized small bowel and colon show normal caliber. The regional skeleton is unremarkable. The lung bases are clear. IMPRESSION: No radiographic evidence of intestinal o bstruction. I personally reviewed these image(s) gagan ng with the resident's/fellow's interpretations, certify that if a procedure was performed I was physically present, and agree with the final report. Osvaldo Vidal MD IMG DIAGNOSTIC IMAGING ORDER GERALDO CT Head without Contrast (08/13/2021 9:26 PM LICENSED PRACTICAL NURSE CLINIC NURSE) Anatomical Region Laterality Modality Head Computed Tomography Specimen (Source) Anatomical Collection Method Collection Time Re ceived Time Location / / Volume Laterality 08/13/2021 9:31 PM LICENSED PRACTICAL NURSE CLINIC NURSE Impressions 08/13/2021 10:27 PM LICENSED PRACTICAL NURSE CLINIC NURSE No acute intracranial abnormality. I personally reviewed these image(s) gagan ng with the resident's/fellow's interpretations, certify that if a procedure was performed I was physically present, and agree with the final report. Narrative 08/13/2021 10:27 PM LICENSED PRACTICAL NURSE CLINIC NURSE FULL RESULT: EXAMINATION: CT HEAD WO CONTRAST on 08/13 9:26 PM COMPARISON: CT head 04/10/2016, MRI brain on 11/03/2016 HISTORY: Endometrial cancer INDICATION: Mass suspected, History of a bnormal MRI lost to follow up in 2016 TECHNIQUE: CT scan of the brain was perf ormed without intravenous contrast as per departmental protocol. FINDINGS: There is no acute intracranial hemorrhag e or extra-axial fluid collection. There is no large vascular territorial infarction. There is no hydrocephalus. No mass, mass effect or midline shift is seen . Basilar cisterns are patent. The sharonda rium is intact. Mucosal thickening in the right sphenoid sinus is noted. Remaining paranasal sinuses and bilateral mastoid air cells are clear. Orbital contents are symmetric. Procedure Note Rocco Tiraod MD - 08/13/2021 FULL RESULT: EXAMINATION: CT HEAD WO CONTRAST on 08/13 9:26 PM COMPARISON: CT head 04/10/2016, MRI brain on 11/03/2016 HISTORY: Endometrial cancer INDICATION: Mass suspected, History of a bnormal MRI lost to follow up in 2017 TECHNIQUE: CT scan of the brain was perf ormed without intravenous contrast as per departmental protocol. FINDINGS: There is no acute intracranial hemorrhag e or extra-axial fluid collection. There is no large vascular territorial infarction. There is no hydrocephalus. No mass, mass effect or midline shift is seen. Basilar cisterns are patent. The calvarium is in tact. Mucosal thickening in the right sphenoid sinus is noted. Remaining paranasal sinuses and bilateral mastoid air cells are clear. Orbital contents are symmetric. IMPRESSION: No acute intracranial abnormality. I personally reviewed these image(s) gagan ng with the resident's/fellow's interpretations, certify that if a procedure was performed I was physically present, and agree with the final report. Osvaldo Vidal MD IMG CT ORDERABLES Clot Expiration Date (08/13/2021 8:52 PM LICENSED PRACTICAL NURSE CLINIC NURSE) [facility] Method Time Signature T & S 08/16/[address] [facility] Specimen Anatomical Collection Method Collection Time Receive d Time (Source) Location / / Volume Laterality Blood 08/13/2021 8:52 PM 9:36 LICENSED PRACTICAL NURSE CLINIC NURSE PM LICENSED PRACTICAL NURSE CLINIC NURSE Osvaldo Vidal MD BLOOD BANK TEST ORDERABLES Performing Organization Address City/State/ZIP Code Phon e Number [facility] Unless otherwise noted, [place] [address] [place] all lab tests performed by: Division of Pathology and Laboratory Medicine [address] [place] [address] TMP Interpretation Antibody Screen Negative (08/13/2021 8:52 PM LICENSED PRACTICAL NURSE CLINIC NURSE) [facility] Method Time Signature TMP Auto Neg At the [facility] patient plasma shows no evidence of RBC alloantibodi es. Comment: ANGELA LANDRY MD - [id number] Dictated by: ANGELA LANDRY MD - 1200 [id number] Dictated Date/Time: 08.14.2021 9:[address] Transcribed Date/Time: 08.14.2021 9:00 AM LICENSED PRACTICAL NURSE CLINIC NURSE Electronically Signed By: ANGELA WINTER MD - [id number] on 08.14.2021 9:00 AM C Specimen Anatomical Collection Method Collection Time Receive d Time (Source) Location / / Volume Laterality Blood 08/13/2021 8:52 PM 2 9:36 LICENSED PRACTICAL NURSE CLINIC NURSE PM LICENSED PRACTICAL NURSE CLINIC NURSE Osvaldo Vidal MD BLOOD BANK TEST ORDERABLES Performing Organization Address City/[facility]/ZIP Code Phon e Number [facility] Unless otherwise noted, [address] all lab tests performed by: Division of Pathology and Laboratory Medicine [facility] [place] [place] Confirm ABORh (08/13/2021 8:52 PM LICENSED PRACTICAL NURSE CLINIC NURSE) athologist Signature ABORh Confirm. A POS [facility] Specimen Anatomical Collection Method Collection Time Receive d Time (Source) Location / / Volume Laterality Blood 08/13/2021 8:52 PM 2 LICENSED PRACTICAL NURSE CLINIC NURSE 11:00 PM LICENSED PRACTICAL NURSE CLINIC NURSE Osvaldo Vidal MD BLOOD BANK TEST ORDERABLES Performing Organization Address City/[facility]/ZIP Code Phon e Number [facility] Unless otherwise noted, [address] all lab tests performed by: Division of Pathology and Laboratory Medicine [address] [place] aPTT (08/13/2021 8:52 PM LICENSED PRACTICAL NURSE CLINIC NURSE) athologist Signature aPTT 32.8 24.7 - 36.8 [facility] Specimen Anatomical Collection Method Collection Time Receive d Time (Source) Location / / Volume Laterality Blood 08/13/2021 8:52 PM 2 8:58 LICENSED PRACTICAL NURSE CLINIC NURSE PM LICENSED PRACTICAL NURSE CLINIC NURSE Osvaldo Vidal MD LAB BLOOD ORDERABLES Performing Organization Address City/State/ZIP Code Phon e Number [facility] Unless otherwise noted, [address] all lab tests performed by: Division of Pathology and Laboratory Medicine [address] [place] [place] ABORh (08/13/2021 8:52 PM LICENSED PRACTICAL NURSE CLINIC NURSE) athologist Signature ABORh. A POS [facility] Specimen Anatomical Collection Method Collection Time Receive d Time (Source) Location / / Volume Laterality Blood 08/13/2021 8:52 PM 01/15/202 2 9:36 LICENSED PRACTICAL NURSE CLINIC NURSE PM LICENSED PRACTICAL NURSE CLINIC NURSE Osvaldo Vidal MD BLOOD BANK TEST ORDERABLES Performing Organization Address City/[facility]/ZIP Code Phon e Number [facility] Unless otherwise noted, [address] all lab tests performed by: Division of Pathology and Laboratory Medicine [address] [place] Prothrombin Time with INR (08/13/2021 8:52 PM LICENSED PRACTICAL NURSE CLINIC NURSE) athologist [facility] PT 13.1 11.5 - 13.9 [facility](s) [facility] [[email or web address]] INR 1.08 0.90 - 1.10 [facility] Specimen Anatomical Collection Method Collection Time Receive d Time (Source) Location / / Volume Laterality Blood 08/13/2021 8:52 PM 2 8:58 LICENSED PRACTICAL NURSE CLINIC NURSE PM LICENSED PRACTICAL NURSE CLINIC NURSE Osvaldo Vidal MD LAB BLOOD ORDERABLES Performing Organization Address City/[facility] Code Phon e Number [facility] Unless otherwise noted, [address] all lab tests performed by: Division of Pathology and Laboratory Medicine [facility] [place] Antibody Screen (08/13/2021 8:52 PM LICENSED PRACTICAL NURSE CLINIC NURSE) athologist [facility] ABSC. Negative ABSC [facility] Specimen Anatomical Collection Method Collection Time Receive d Time (Source) Location / / Volume Laterality Blood 08/13/2021 8:52 PM 2 9:36 LICENSED PRACTICAL NURSE CLINIC NURSE PM LICENSED PRACTICAL NURSE CLINIC NURSE Osvaldo Vidal MD BLOOD BANK TEST ORDERABLES Performing Organization Address City/[facility]/ZIP Code Phon e Number [facility] Unless otherwise noted, [address] all lab tests performed by: Division of Pathology and Laboratory Medicine [address] [place] Uric Acid (08/13/2021 8:52 PM LICENSED PRACTICAL NURSE CLINIC NURSE) athologist [facility] Uric Acid 4.9 2.4 - 5.7 [facility] mg/dL [facility] [[email or web address]] Specimen Anatomical Collection Method Collection Time Receive d Time (Source) Location / / Volume Laterality Blood 08/13/2021 8:52 PM 2 9:01 LICENSED PRACTICAL NURSE CLINIC NURSE PM LICENSED PRACTICAL NURSE CLINIC NURSE Osvaldo Vidal MD LAB BLOOD ORDERABLES Performing Organization Address City/State/ZIP Code Phon e Number [facility] Unless otherwise noted, [address] all lab tests performed by: Division of Pathology and Laboratory Medicine [address] [place], [place] [address]d TSH (08/13/2021 8:52 PM LICENSED PRACTICAL NURSE CLINIC NURSE) athologist Signature TSH 0.62 0.27 - 4.20 [facility] mcunit/mL [facility] Specimen Anatomical Collection Method Collection Time Receive d Time (Source) Location / / Volume Laterality Blood 08/13/2021 8:52 PM 2 9:01 LICENSED PRACTICAL NURSE CLINIC NURSE PM LICENSED PRACTICAL NURSE CLINIC NURSE Osvaldo Vidal MD LAB BLOOD ORDERABLES Performing Organization Address City/[facility]/ZIP [facility] Phon e Number [facility] Unless otherwise noted, [address] all lab tests performed by: Division of Pathology and Laboratory Medicine [address] [place] [address] Hemoglobin A1c (08/13/2021 8:52 PM LICENSED PRACTICAL NURSE CLINIC NURSE) athologist [facility] A1C <4.3 4.3 - 5.6 % [facility] Comment: HbA1c values >=6.5% are diagnostic of di abetes mellitus. Diagnosis should be confirmed by repeat testing. Therapeutic Action suggested: >8.0% HbA1 c; Goal of therapy: <7.0% HbA1c Specimen Anatomical Collection Method Collection Time Receive d Time (Source) Location / / Volume Laterality Blood 08/13/2021 8:52 PM 2 8:58 LICENSED PRACTICAL NURSE CLINIC NURSE PM LICENSED PRACTICAL NURSE CLINIC NURSE Osvaldo Vidal MD LAB BLOOD ORDERABLES Performing Organization Address City/[facility]/ZIP Code Phon e Number [facility] Unless otherwise noted, [address] all lab tests performed by: Division of Pathology and Laboratory Medicine [address] [place] [address] Ammonia Level (08/13/2021 8:52 PM LICENSED PRACTICAL NURSE CLINIC NURSE) athologist [facility] Ammonia 29 11 - 51 [facility]L [facility] [[email or web address]] Specimen Anatomical Collection Method Collection Time Receive d Time (Source) Location / / Volume Laterality Blood 08/13/2021 8:52 PM 2 8:59 LICENSED PRACTICAL NURSE CLINIC NURSE PM LICENSED PRACTICAL NURSE CLINIC NURSE Osvaldo Vidal MD LAB BLOOD ORDERABLES Performing Organization Address City/State/ZIP Code Phon e Number [facility] Unless otherwise noted, [place] [address] [place] all lab tests performed by: Division of Pathology and Laboratory Medicine [facility] [place] after 07/10/2021 Insurance Payer Benefit Plan / Subscriber ID Effective Dates Phone Addre ss Type Group [facility] [id number] 2015-Neto [address] PPO [place] [address] [phone] [id number] (Work) Lianne Medina Personal/Family Self 1970 [phone] [place] [id number] Lianne Medina Personal/Family Self 1970 [phone] [phone] Advance Directives Code Status Date Activated Date Inactivated Comments Full Code 08/13/2021 11:31 PM 08/14/2021 11:37 AM Code Status Date Activated Date Inactivated Comments Full Code 01/30/2017 9:39 PM 01/31/2017 3:59 PM Full Code 10/31/2016 4:56 AM 11/04/2016 5:01 PM Full Code 04/10/2016 10:29 PM 04/12/2016 5:58 PM Care Teams Leasing Consultant Relationship Specialty Start Date End Date [address] MD PCP - General 09/29/15 [facility] [place] [address] Nomi Olea, PCP - External Follow Up 04/03/14 MD Silver [address] [facility] [address] [place] [address] Pedro Comer, PCP - External Follow Up 04/20/14 MD Humphrey [address] [facility] [address] [place] [address] Kimber Mendoza PCP - External Follow Up Internal Medicine 10/28 09/20 MD Haim [address] Henderson [address] [place] [id number] Haresh Venegas MD Nurse Practitioner 10/06/15 Magnolia Holden MD Physician 10/06/[address] [place] [id number] Prince Schreiber NP Nurse Practitioner 10/06/[address] [place] [id number] Darnell Wellington MD Physician 10/06/[address] [place] [id number] Jossue Suresh PA Physician Sourcing Coordinator 10/06/[address] [place] [address] MD Physician 10/06/[address] [place] [id number] Margarita Chaves PA Physician Sourcing Coordinator 10/06/[address] [place] [id number]
--- OUTSIDE RECORDS SUMMARY | 2022-07-10 22:32 | XMS REPORT | Continuity of Care Document ---
:1970 Author Organization [facility] t Address [address] [place] [address] Care Team Providers Name Role Phone [phone] Primary Care Physician Unavailable KIMBER MENDOZA Attending Clinician Unavailable NOMI GRIMM Attending Clinician Unavailable JOHN FERRELL Attending Clinician Unavailable ARAMIS ALVAREZ Attending Clinician Unavailable ARAMIS ALVAREZ Attending Clinician Unavailable ANATOLY ALVARADO Attending Clinician Unavailable KOFI RANGEL Attending Clinician Unavailable LAB90 Attending Clinician Unavailable PARKER TAMAYO Attending Clinician Unavailable Aramis Alvarez MD Attending Clinician Kimber Mendoza MD Attending Clinician [phone] Anesthesiology Attending Clinician Unavailable Doctor Unassigned, [facility] Attending Clinician Unavailable Pcp, Palliative Care Attending Clinician Unavailable MARK ANTHONY SALOMON Attending Clinician Unavailable Aime WESTFALL, Mark Anthony Attending Clinician Timmy COOLING PIPE INSPECTOR, Cris Attending Clinician Pob, [facility] Main Attending Clinician Unavailable Evgeny MIGUEL, Felicia Yarbrough Attending Clinician Silvia GORMAN, Jojo Galindo Attending Clinician NENITA HARRY Attending Clinician Unavailable Nona WESTFALL, Sherrie Duarte Attending Clinician [phone] Nenita Harry MD Attending Clinician Nichol WESTFALL, Neo Attending Clinician CRIS WARNER Attending Clinician Unavailable Linda WESTFALL, Libby Dominguez Attending Clinician KIMBERLYN PHOENIX Attending Clinician Unavailable Kimberlyn Phoenix MD Attending Clinician ELLEN REYES Attending Clinician Unavailable Ellen Reyes PA-C Attending Clinician Phani Eagle RN Attending Clinician Unavailable Marni Johnson APN Attending Clinician Natalie Mcdonald MD Attending Clinician Kassidy Wheeler CRNA Attending Clinician Yolis Agustin RN Attending Clinician Unavailable Felicia Cueva RN Attending Clinician Unavailable Attila GORMAN, Jenny Warren Attending Clinician Unavailable LIBBY IRVING Attending Clinician Unavailable Aleksander Venegas RN Attending Clinician Norris Larry RN Attending Clinician Unavailable Curtis Amador MD Attending Clinician CURTIS AMADOR Attending Clinician Unavailable NELY MOORE Attending Clinician Unavailable Nely Colon [facility] Attending Clinician Unavailable Seema Tanner Attending Clinician Sherrie Oro MD Attending Clinician MILES, NAKESHIA U Attending Clinician Unavailable Florencio COOLING PIPE INSPECTOR, Nicol S Attending Clinician Lab, Ang - Db Attending Clinician Unavailable Darrel SHAHID, Miguel Ángel Attending Clinician MIGUEL ÁNGEL DEL TORO Attending Clinician Unavailable Nory RN, Lavon Attending Clinician Unavailable Carlyle WESTFALL, Dimitri Attending Clinician TIGIST PERSAUD Attending Clinician Unavailable Cathy WESTFALL, Tigist Attending Clinician Amber GORMAN, Sesar Chopra Attending Clinician Unavailable Alisha Ceron RN Attending Clinician Tameka COOLING PIPE INSPECTOR, Blanca Attending Clinician THOMAS PEÑA Attending Clinician Unavailable Casey WESTFALL, Thomas Attending Clinician Marita WESTFALL, Fernando Carlson Attending Clinician Unavailable Jennifer Maher RN Attending Clinician Dominga Villalobos MD Attending Clinician DOMINGA VILLALOBOS Attending Clinician Unavailable Osvaldo Vidal MD Attending Clinician Bev John MA Attending Clinician Unavailable Jayla Roblero RN Attending Clinician Unavailable ERIKA Attending Clinician Unavailable Bryson GORMAN, Luz Attending Clinician Unavailable Mira Garcia RN Attending Clinician Unavailable Randee Gonzalez RN Attending Clinician Unavailable Tiffany Moscoso RN Attending Clinician Unavailable Fani Hartley RN Attending Clinician Unavailable Tram Alonso RN Attending Clinician Unavailable Selam Gómez RN Attending Clinician Unavailable Beba العراقي RN Attending Clinician Unavailable Natalya Toribio RN Attending Clinician Unavailable Sendy Aguilar RN Attending Clinician Unavailable Curtis Eric RN Attending Clinician Unavailable Yari Potter RN Attending Clinician Unavailable Mira Celeste RN Attending Clinician Unavailable Danielle Lagos RN Attending Clinician Unavailable NOMI GRIMM M.D. Attending Clinician Unavailable KIMBER MENDOZA Admitting Clinician Unavailable Kimber Mendoza MD Admitting Clinician [phone] NENITA HARRY Admitting Clinician Unavailable Nenita Harry MD Admitting Clinician KIMBERLYN [place] Admitting Clinician Unavailable NELY MOORE Admitting Clinician Unavailable DOMINGA VILLALOBOS Admitting Clinician Unavailable ERIKA Admitting Clinician Unavailable Payers Payer Name Policy Type Policy Number Effective Date Expiration Date Alberto gautam [facility] [id number] 2015 PPO/POS 00:00:00 [facility] CHOICE/CHOICE [id number] 2020 PLUS 00:00:00 [facility] 3 [id number] 2022 00:00:00 Problems Condition Condition Condition Status Onset Resolution Last Treating Co mments Source Name Details Category Date Date Treatment Clinician Date DDD DDD Disease Active 2021-07 Sneha (degenerat (degenerat 2-07 Se ybold rodney disc rodney disc 00:00: - disease), disease), 00 Exte rna cervical cervical l DDD DDD Disease Active 2021-07 Sneha (degenerat (degenerat 2-07 Se ybold rodney disc rodney disc 00:00: - disease), disease), 00 Exte rna lumbar lumbar l Seasonal Seasonal Disease Active 2021-07 Kelse y allergic allergic 2 Seybol d rhinitis rhinitis 00:00: - due to due to 00 Externa pollen pollen l Dysuria Dysuria Disease Active 2021-07 Sneha 09 Seybold 00:00: - 00 Externa l Primary Primary Disease Active 2021-07 Sneha hypertensi hypertensi 09 Se ybold on on 00:00: - 00 Externa l 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 Sneha hyperlipid hyperlipid 08-07 Se ybold emia emia 00:00: - 00 Externa l Family Family Disease Active 2021-07 Sneha history of history of 08-07 Se ybold goiter goiter 00:00: - 00 Externa l Enlarged Enlarged Disease Active 2021-07 Kelse y thyroid thyroid 08-07 Seybold 00:00: - 00 Externa l Chronic Chronic Disease Active 2021-07 Sneha constipati constipati 109 Se ybold on on 00:00: - 00 Externa l Hilar Hilar Disease Active 2021-07 Sneha adenopathy adenopathy 09 Se ybold 00:00: - 00 Externa l Shortness Shortness Disease Active 2021-07 Smith sey of breath of breath 08-07 Seyb old 00:00: - 00 Externa l Urinary Urinary Disease Active 2021-07 Sneha tract pain tract pain 08-07 Se ybold 00:00: - 00 Externa l 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 00:00: - 00 Externa l Well adult Well adult Disease Active 2021-07 K sharon exam exam 07-31 Seybold 00:00: - 00 Externa l Hyponatrem Hyponatrem Disease Active 2021-07 K sharon ia ia 07-31 Seybold 00:00: - 00 Externa l 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 07-31 Seyb old 00:00: - 00 Externa l Fibromyalg Fibromyalg Disease Active 2021-07 K sharon ia ia 07-31 Seybold 00:00: - 00 Externa l Gastroesop Gastroesop Disease Active 2021-07 Xin herrera hageal hageal 07-31 [place] reflux reflux 00:00: - disease disease 00 Externa without without l esophagiti esophagiti s s Simple Simple Disease Active 2021-07 Nseha chronic chronic 07-31 Seybold bronchitis bronchitis 00:00: - 00 Externa l Elevated Elevated Disease Active 2021-07 Kelse y BP without BP without 07-31 Se ybold diagnosis diagnosis 00:00: - of of 00 Externa hypertensi hypertensi l on on Obesity Obesity Disease Active Univers (BMI (BMI 7-26 ity of 30-39.9) 30-39.9) 00:00: [place] 00 [facility] Chest Chest Disease Active Univers pain, pain, 7-25 ity of unspecifie [place]ie [place] type 00 [facility] Chronic Chronic Disease Active Univers bronchitis bronchitis 7-21 it y of , , 00:00: [place] unspecifie unspecifie 00 Me dical d chronic d chronic Bran ch bronchitis bronchitis type type Moderate Moderate Disease Active Unive rs dehydratio dehydratio 1-15 it y of n n 00:00: [place] 00 MD [facility] Nausea Nausea Disease Active Univers 1-15 ity of 00:00: [place] 00 MD [facility] Bronchopne Bronchopne Disease Active U jessica umonia umonia 01-30 ity of 00:00: [place] 00 MD [facility] Hyposmolal Hyposmolal Disease Active U nivers ity and/or ity and/or 01-30 it y of hyponatrem hyponatrem [place] [facility] Abdominal Abdominal Disease Active Uni vers pain pain 7 ity of 00:00: [place] 00 MD [facility] Productive Productive Disease Active U nivmargarita cough cough 01-30 ity of 00:00: [place] 00 MD [facility] Dysuria Dysuria Disease Active Univers 01-30 ity of 00:00: [place] 00 MD [facility] Tachycardi Tachycardi Disease Active U jessica a a 01-30 ity of 00:00: [place] 00 MD [facility] Hypoxia Hypoxia Disease Active Univers 01-30 ity of 00:00: [place] 00 [facility] 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-05 ity of use of use of 00:00: [place] opiate opiate 00 analgesic analgesic [facility] Post-traum Post-traum Disease Active U jessica atic atic 4-05 ity of stress stress 00:00: [place] disorder disorder 00 MD [facility] Mild Mild Disease Active Univers cognitive cognitive 4-05 ity of disorder disorder 00:00: [place] 00 MD [facility] Adjustment Adjustment Disease Active U jessica disorder disorder 4-05 ity of with with 00:00: [place] physical physical 00 complaints complaints [facility] Tobacco Tobacco Disease Active Univers use use 4-04 ity of 00:00: [place] 00 [facility] Hyponatrem Hyponatrem Disease Active U jessica ia ia 4-04 ity of 00:00: [place] 00 MD [facility] Melena Melena Disease Active Univers 4-04 ity of 00:00: [place] 00 MD [facility] Endometrio Endometrio Disease Active U nivers sis sis 4-04 ity of 00:00: [place] 00 MD [facility] Urinary Urinary Disease Active Univers tract tract 4-04 ity of infection infection [place] [facility] Colitis Colitis Disease Active Univers 4-04 ity of 00:00: [place] 00 MD [facility] Chronic Chronic Disease Active Univers pain pain 4-04 ity of syndrome syndrome 00:00: [place] 00 MD [facility] Tobacco Tobacco Disease Active Univers use use 4-04 ity of 00:00: [place] 00 MD [facility] Anemia of Anemia of Disease Active Uni vers chronic chronic 4-04 ity of disease disease 00:00: [place] 00 MD [facility] Headache Headache Disease Active Unive rs 4-04 ity of 00:00: [place] 00 MD [facility] Multiple Multiple Disease Active Unive rs sclerosis sclerosis 403 ity of 00:00: [place] 00 [facility] Branch Hyponatrem Hyponatrem Disease Active M ethodi ia ia 04-16 st 00:00: Hospita 00 l Abdominal Abdominal Disease Active Uni vers pain, pain, 9-15 ity of generalize generalize 00:[place] 00 [place] [facility] Generalize Generalize Disease Active U nivmargarita d anxiety d anxiety 9-15 ity of disorder disorder 00:00: [place] 00 MD [facility] Urinary Urinary Disease Active Univers incontinen incontinen 9-16 it y of ce in ce in 00:00: [place] female female 00 Medical Branch No known No known Disease [facility] r active active College problems problems of Medicin e Muscle Muscle Problem Active [facility] spasm spasm Physici ans Fungal Fungal Problem Active UT infection infection Phys ici ans Asthma Asthma Problem Active [facility] Physici ans Low grade Low grade Problem Active UT fever fever Physici ans Cough in Cough in Problem Active UT adult adult Physici ans Altered Altered Problem Active UT mental mental Physici status status ans Abdominal Abdominal Problem Active UT tenderness tenderness Ph ysici ans Chest pain Chest pain Problem Active U T Physici ans Rib pain Rib pain Problem Active UT Physici ans Blood loss Blood loss Problem Active U T Physici ans Joint pain Joint pain Problem Active U T Physici ans Abnormal Abnormal Problem Active UT weight weight Physici gain gain ans Hypothyroi Hypothyroi Problem Active U T d d Physici ans Abnormal Abnormal Problem Active UT laboratory laboratory Ph ysici test test ans Sinus Sinus Problem Active UT infection infection Phys ici ans Throat Throat Problem Active UT symptom symptom Physici ans UTI UTI Problem Active UT (urinary (urinary Physic i tract tract ans infection) infection) Pain in Pain in Problem Active UT the the Physici abdomen abdomen ans Skin rash Skin rash Problem Active [facility] Physici ans Dry skin Dry skin Problem Active [facility] Physici ans Myalgia Myalgia Problem Active [facility] Physici ans Right Right Problem Active UT wrist pain wrist pain Ph ysici ans Supraclavi Supraclavi Problem Active U T cular mass cular mass Ph ysici ans Infected Infected Problem Active UT tooth tooth Physici ans Discharge Discharge Problem Active UT from from Physici breast breast ans Abscess Abscess Problem Active [facility] Physici ans Allergies, Adverse Reactions, Alerts Allergy Allergy Status Severity Reaction(s) Onset Inactive Treating Comm ents Source Name Type Date Date Clinician Fentanyl Propensi Active Other (See Agitation Univers ty to Comments) 5-20 , ity of adverse 00:00: Increased [place] reaction 00 heart MD [facility] Prochlor Propensi Active Univer s perazine ty to 12-15 ity of adverse 00:00: [place] reaction 00 MD [facility] Ketorola Drug Active Per Univers c Allergy 08-20 patient ity of 00:00: throat [place] 00 closes up MD [facility] Fentanyl Propensi Active PALPITATIONS 2020-07 Agitati on Sneha Citrate ty to 09-12 , Seybold adverse 00:00: Increased - reaction 00 heart Externa s rate l Ibuprofe Propensi Active 2020-07 Sneha n ty to 2-14 Seybold adverse 00:00: - reaction 00 Externa s l Levoflox Propensi Active 2020-07 Sneha acin ty to 2 Seybold adverse 00:00: - reaction 00 Externa s l Prochlor Propensi Active 2020-07 Sneha perazine ty to 2 Seybold Edisylat adverse 00:00: - e reaction 00 Externa s l Fentanyl Allergy Active 2020-07 UT to 2 Health substanc 00:00: e 00 Ibuprofe Allergy Active 2020-07 UT n to 09-12 Health substanc 00:00: e 00 Levoflox Allergy Active 2020-07 UT acin to 09-12 Health substanc 00:00: e 00 Prochlor Allergy Active 2020-07 UT perazine to 09-12 Health substanc 00:00: e 00 Sulfa Allergy Active 2020-07 [facility] Antibiot to 09-12 Health ics substanc 00:00: e 00 Fentanyl Propensi Active 2020-07 [facility] ty to 09-12 [place] adverse 00:00: of reaction 00 Medicin s to e drug Ibuprofe Propensi Active 2020-07 [facility] n ty to 09-12 [place] adverse 00:00: of reaction 00 Medicin s to e drug Prochlor Propensi Active 2020-07 [facility] perazine ty to 09-12 [place] adverse 00:00: of reaction 00 Medicin s to e drug Sulfa Drug Active Hives 2015-07 Univers (Sulfona Allergy 08-02 ity of mide 00:00: [place] Antibiot 00 Medical ics) Branch Celecoxi Propensi Active Other - See 2015-07 U nivers b ty to comments 08-02 ity of adverse 00:00: [place] reaction 00 Medical s Branch Cephalos Propensi Active Hives 2015-07 Univer s porins ty to 08-02 ity of adverse 00:00: [place] reaction 00 Medical s Branch Phenytoi Propensi Active Palpitations 2015-07 Univers n ty to 04 ity of adverse 00:00: [place] reaction 00 Medical s Branch Levetira Propensi Active Palpitations 2015-07 Univers cetam ty to 04 ity of adverse 00:00: [place] reaction 00 Medical s Branch Penicill Propensi Active Hives 2015-07 Univer s in ty to 04 ity of adverse 00:00: [place] reaction 00 Medical s Branch CELECOXI DRUG Active Other-Cmnt 2015-07 Univ ers B INGREDI 08-02 ity of 00:00: [place] 00 Medical Branch CEPHALOS Drug Active Hives 2015-07 Univers PORINS Class 04 ity of 00:00: [place] 00 [facility] PHENYTOI DRUG Active Palpitations 2015-07 Un niru N INGREDI 08-02 ity of 00:00: [place] 00 [facility] LEVETIRA DRUG Active Palpitations 2015-07 Un niru CETAM INGREDI 08-02 ity of 00:00: [place] 00 [facility] PENICILL DRUG Active Hives 2015-07 Univers IN INGREDI 08-02 ity of 00:00: [place] 00 [facility] PENTAZOC DRUG Active Hives 2015-07 Univers INE INGREDI 08-02 ity of 00:00: [place] 00 [facility] SULFA Drug Active Hives 2015-07 Univers (SULFONA Class 04 ity of MIDE 00:00: [place] ANTIBIOT 00 Medical ICS) Branch PENTAZOC DRUG Active Hives 2015-07 Univers INE INGREDI 08-02 ity of LACTATE 00:00: [place] 00 [facility] KETOROLA DRUG Active Hives 2015-07 Univers C INGREDI 08-02 ity of TROMETHA 00:00: [place] MINE 00 Medical Branch TRAMADOL DRUG Active High Anaphylaxis 2015- Uni vers INGREDI 08-02 ity of 00:00: [place] 00 [facility] Pentazoc Propensi Active Hives 2015-07 Not Univer s ine ty to 08-02 allergic ity of Lactate adverse 00:00: [place] reaction 00 Medical s Branch Ketorola Propensi Active Hives 2015-07 Univer s c ty to 04 ity of Trometha adverse 00:00: [place] mine reaction 00 Medical s Branch Tramadol Propensi Active Anaphylaxis 2015- U nivers ty to 04 ity of adverse 00:00: [place] reaction 00 Medical s Branch Pentazoc Drug Active Hives 2015-07 Not Univers ine Allergy 04 allergic ity of 00:00: [place] 00 [facility] Diphenhy Propensi Active Hives 2015-07 Sneha dramine ty to 08-02 [place] Hcl adverse 00:00: - reaction 00 Externa s l Ketorola Propensi Active Hives 2015-07 Snhea c ty to 04 Seybold Trometha adverse 00:00: - mine reaction 00 Externa s l Pentazoc Propensi Active Hives 2015-07 Sneha ine ty to 04 [place] adverse 00:00: - reaction 00 Externa s l Phenazop Propensi Active 2015-07 Other Sneha yridine ty to 08-02 reaction( Seybol d adverse 00:00: s): - reaction 00 UnknownOt Exter na s her l reaction( s): Unknown Phenytoi Propensi Active PALPITATIONS 2015-07 Sneha n ty to 08-02 [place] adverse 00:00: - reaction 00 Externa s l Sulfa Propensi Active Hives 2015-07 Sneha Drugs ty to 08-02 [place] adverse 00:00: - reaction 00 Externa s l Ciproflo Allergy Active Other 2015-07 "states [place] xacin to 08-02 bladder Health substanc 00:00: infection e 00 " Diphenhy Propensi Active Hives 2015-07 UT dramine ty to 08-02 Health adverse 00:00: reaction 00 s Ketorola Allergy Active Hives 2015-07 UT c to 08-02 Health Trometha substanc 00:00: mine e 00 Pentazoc Allergy Active Hives 2015-07 UT ine to 08-02 Health substanc 00:00: e 00 Ketorola Propensi Active Hives 2015-07 [facility] c ty to 08-02 [place] Trometha adverse 00:00: of mine reaction 00 Medicin s to e drug Pentazoc Propensi Active Hives 2015-07 [facility] ine ty to 08-02 [place] adverse 00:00: of reaction 00 Medicin s to e drug Phenazop Propensi Active 2015-07 Other [facility] yridine ty to 08-02 reaction( Colleg e adverse 00:00: s): of reaction 00 Unknown Medicin s to e drug Phenytoi Propensi Active Palpitations 2015-07 [facility] n ty to 08-02 [place] adverse 00:00: of reaction 00 Medicin s to e drug Sulfa Propensi Active Hives 2015-07 [facility] Antibiot ty to 08-02 [place] ics adverse 00:00: of reaction 00 Medicin s to e drug Ciproflo Propensi Active Other (See 2015-07 "states B aylor xacin ty to Comments) 08-02 bladder Colleg e adverse 00:00: infection of reaction 00 ""states Medici n s to bladder e drug infection " Diphenhy Propensi Active Hives 2015-07 [facility] dramine ty to 08-02 [place] Hcl adverse 00:00: of reaction 00 Medicin s to e drug Morphine Propensi Active Shortness of States Sneha ty to Breath 9-18 "lips [place] adverse 00:00: turn - reaction 00 blue"Stat Exter na s es "lips l turn blue"Stat es "lips turn blue" Acetamin Propensi Active Sneha ophen ty to 04-16 [place] Injectio adverse 00:00: - n reaction 00 Externa s l Morphine Propensi Active Shortness Of Methodi ty to Breath 04-16 st adverse 00:00: Hospita reaction 00 l s to drug Oxycodon Propensi Active Hives Method i e-Acetam ty to 04-16 inophen adverse 00:00: Hospita reaction 00 l s to drug Penicill Propensi Active Anaphylaxis 2015-0 M ethodi ins ty to 04-16 adverse 00:00: Hospita reaction 00 l s to drug Tetracyc Propensi Active Hives Method i line ty to 04-16 adverse 00:00: Hospita reaction 00 l s to drug Tizanidi Propensi Active Anaphylaxis 2015-0 M ethodi ne ty to 04-16 adverse 00:00: Hospita reaction 00 l s to drug Tramadol Propensi Active Shortness Of Methodi ty to Breath 04-16 adverse 00:00: Hospita reaction 00 l s to drug Acetamin Propensi Active Method i ophen ty to 04-16 adverse 00:00: Hospita reaction 00 l s to drug Celecoxi Propensi Active Anaphylaxis 2015-0 M ethodi b ty to 04-16 adverse 00:00: Hospita reaction 00 l s to drug Cephalos Propensi Active Shortness Of Methodi porins ty to Breath 04-16 adverse 00:00: Hospita reaction 00 l s to drug Cyclospo Propensi Active Hives Method i rine ty to 04-16 adverse 00:00: Hospita reaction 00 l s to drug Divalpro Propensi Active Palpitations Methodi ex ty to 04-16 adverse 00:00: Hospita reaction 00 l s to drug Levetira Propensi Active Rash Method i cetam ty to 04-16 adverse 00:00: Hospita reaction 00 l s to drug Lorazepa Propensi Active Anxiety Metho di m ty to 04-16 adverse 00:00: Hospita reaction 00 l s to drug Metoclop Propensi Active Other (See Me thodi ramide ty to Comments) 04-16 st adverse 00:00: Hospita reaction 00 l s to drug Morphine Allergy Active Shortness of States U T to breath 04-16 "lips Health substanc 00:00: turn e 00 blue" Tetracyc Propensi Active Hives [facility] line ty to 04-16 Health adverse 00:00: reaction 00 s TIZANIDI DRUG Active High Anaphylaxis Uni vers NE INGREDI 04-10 ity of 00:00: [place] 00 [facility] Branch METOCLOP DRUG Active Low Other-Cmnt Univ ers RAMIDE INGREDI 04-10 ity of 00:00: 00 Medical Branch Metoclop Drug Active Other - See Uni vers ramide Allergy comments 04-10 ity of 00:00: 00 Medical Branch Metoclop Propensi Active Other Sneha ramide ty to 04-10 [place] adverse 00:00: - reaction 00 Externa s l Oxycodon Propensi Active Hives Sneha e-Acetam ty to 04-10 [place] inophen adverse 00:00: - reaction 00 Externa s l Celecoxi Propensi Active Other Sneha b ty to 04-10 [place] adverse 00:00: - reaction 00 Externa s l Cephalos Propensi Active Shortness of unknown un Sneha porins ty to Breath 04-10 known [place] adverse 00:00: - reaction 00 Externa s l Celecoxi Propensi Active Univer s b ty to 04-10 ity of adverse 00:00: [place] reaction 00 [facility] Cephalos Propensi Active unknown Unive rs porins ty to 04-10 ity of adverse 00:00: [place] reaction 00 MD [facility] Cycloben Propensi Active unknown Unive rs zaprine ty to 12 ity of adverse 00:00: [place] reaction 00 MD [facility] Metoclop Drug Active Other (See Univ ers ramide Allergy Comments) 04-10 ity of Hcl 00:00: [place] 00 MD [facility] Tizanidi Propensi Active unknown Unive rs ne ty to 04-10 ity of adverse 00:00: [place] reaction 00 MD [facility] Metoclop Allergy Active Other UT ramide to 04-10 Health substanc 00:00: e 00 Oxycodon Drug Active Hives UT e-Acetam Allergy 04-10 Health inophen 00:00: 00 Metoclop Propensi Active Other (See Ba ylor ramide ty to Comments) 04-10 College adverse 00:00: of reaction 00 Medicin s to e drug Oxycodon Propensi Active Hives [facility] e-Acetam ty to 04-10 [place] inophen adverse 00:00: of reaction 00 Medicin s to e drug Tizanidi Propensi Active Anaphylaxis unknownu n [facility] ne ty to 04-10 known College Hydrochl adverse 00:00: of oride reaction 00 Medicin s to e drug Celecoxi Propensi Active Other (See Ba micahor b ty to Comments) 04-10 College adverse 00:00: of reaction 00 Medicin s to e drug Cephalos Propensi Active Shortness Of unknown [facility] porins ty to Breath 04-10 College adverse 00:00: of reaction 00 Medicin s to e drug Cycloben Propensi Active unknownun [place] claude zaprine ty to 04-10 known College adverse 00:00: of reaction 00 Medicin s to e drug Penicill Propensi Active Hives Throat Sneha ins ty to 03-01 closes Seybold adverse 00:00: upThroat - reaction 00 closes Externa s upThroat l closes upThroat closes up Penicill Propensi Active Throat Univer s ins ty to 03-01 closes up ity of adverse 00:00: [place] reaction 00 MD alberto yoder [facility] Tramadol Propensi Active Shortness Of Throat Univers ty to Breath 03-01 closes up ity of adverse 00:00: [place] reaction 00 MD alberto yoder [facility] Penicill Allergy Active Hives Throat [place] ins to 03-01 closes up Health substanc 00:00: e 00 Penicill Propensi Active Hives Throat [place] ins ty to 03-01 [facility] adverse 00:00: upThroat of reaction 00 closes up Medic in s to e drug Tramadol Propensi Active Shortness Of 2016-0 Throat [facility] ty to Breath 03-01 [facility] adverse 00:00: upThroat of reaction 00 closes up Medic in s to e drug LITHIUM Drug Active Other-Cmnt 2016-0 Unive rs ANALOGUE Class 6-24 ity of S 00:00: [place] 00 Medical Branch SULFAMET DRUG Active Hives 2016-0 Univers HOXAZOLE 624 ity of -TRIMETH 00:00: [place] OPRIM 00 Medical Branch TETRACYC DRUG Active Hives 2015-0 Univers LINE INGREDI 6-24 ity of 00:00: [place] 00 Medical Branch DIVALPRO DRUG Active Low Palpitations 2016-0 Un niru EX INGREDI 6-24 ity of SODIUM 00:00: [place] 00 Medical Branch LORAZEPA DRUG Active Low Anxiety 2015- Univers M INGREDI 624 ity of 00:00: [place] 00 Medical Branch VALPROIC DRUG Active Low Palpitations 2016-0 Un niru ACID INGREDI 6-24 ity of 00:00: [place] 00 Medical Branch Tetracyc Propensi Active Hives 2016-0 Univer s line ty to 624 ity of adverse 00:00: [place] reaction 00 Medical s Branch Sulfamet Drug Active Hives 2015-0 Univers hoxazole Allergy 624 ity of -Trimeth 00:00: [place] oprim 00 Medical Branch Valproic Propensi Active Palpitations 2016-0 Not Univers Acid ty to 624 allergic ity of adverse 00:00: [place] reaction 00 Medical s Branch Cyclospo Propensi Active Hives 2016-0 Sneha rine ty to 624 Seybold adverse 00:00: - reaction 00 Externa s l Levetira Propensi Active Rash 2016-0 Sneha cetam ty to 624 [place] adverse 00:00: - reaction 00 Externa s l [place] Propensi Active Other 2016-0 Sneha ty to 624 Seybold adverse 00:00: - reaction 00 Externa s l Lorazepa Propensi Active Anxiety 2016-0 Kelse y m ty to 624 Seybold adverse 00:00: - reaction 00 Externa s l Tetracyc Propensi Active Hives Sneha lines ty to 6-24 [place] adverse 00:00: - reaction 00 Externa s l Valproic Propensi Active PALPITATIONS Sneha Acid ty to 624 Seybold adverse 00:00: - reaction 00 Externa s l Alprazol Propensi Active Anxiety Kelse y am ty to 624 Seybold adverse 00:00: - reaction 00 Externa s l Ciproflo Propensi Active Other "states Kelse y xacin ty to 624 bladder Seybold Hydrochl adverse 00:00: infection - oride reaction 00 ""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 "Bladder infection "states bladder infection " Alprazol Propensi Active Anxiety Unive rs am ty to 6-24 ity of adverse 00:00: [place] reaction 00 MD alberto yoder [facility] Lorazepa Propensi Active Anxiety Unive rs m ty to 624 ity of adverse 00:00: [place] reaction 00 MD alberto yoder [facility] Sulfamet Propensi Active Hives Univer s hoxazole ty to 6-24 ity of -Trimeth adverse 00:00: [place] oprim reaction 00 MD alberto yoder [facility] Ciproflo Propensi Active Other (See Bladder U nivers xacin ty to Comments) 624 infection ity of Hcl adverse 00:00: [place] reaction 00 MD alberto yoder [facility] Cyclospo Propensi Active Hives Univer s rine ty to 624 ity of adverse 00:00: [place] reaction 00 MD alberto yoder [facility] Divalpro Propensi Active Palpitations Univers ex ty to 6-24 ity of adverse 00:00: [place] reaction 00 MD alberto yoder [facility] Levetira Propensi Active Rash Univer s cetam ty to 6-24 ity of adverse 00:00: [place] reaction 00 MD alberto yoder [facility] [place] Propensi Active Other (See Uni vers Analogue ty to Comments) 624 ity o f s adverse 00:00: [place] reaction 00 MD alberto yoder [facility] Tetracyc Propensi Active Hives Univer s lines ty to 01-20 ity of adverse 00:00: [place] reaction 00 [facility] Levetira Allergy Active Rash [place] cetam to 01-20 Health substanc 00:00: e 00 Sulfamet Allergy Active Hives [place] hoxazole to 01-20 Health -Trimeth substanc 00:00: oprim e 00 Levetira Propensi Active Rash [facility] cetam ty to 01-20 College adverse 00:00: of reaction 00 Medicin s to e drug [place] Propensi Active Other (See [place] claude ty to Comments) 01-20 College adverse 00:00: of reaction 00 Medicin s to e drug Lorazepa Propensi Active Anxiety [place] m ty to 01-20 [place] adverse 00:00: of reaction 00 Medicin s to e drug Sulfamet Propensi Active Hives [facility] hoxazole ty to 01-20 College -Trimeth adverse 00:00: of oprim reaction 00 Medicin s to e drug Tetracyc Propensi Active Hives [facility] lines & ty to 01-20 College Related adverse 00:00: of reaction 00 Medicin s to e drug Alprazol Propensi Active Anxiety [place] r am ty to 01-20 College adverse 00:00: of reaction 00 Medicin s to e drug Valproic Propensi Active Palpitations [facility] Acid ty to 01-20 College adverse 00:00: of reaction 00 Medicin s to e drug Cyclospo Propensi Active Hives [facility] rine ty to 01-20 College adverse 00:00: of reaction 00 Medicin s to e drug Penicill Allergy Active [place] ins to drug [facility] (finding ans ) sulfa Allergy Active [place] to drug [facility] (finding ans ) Family History Family Member Diagnosis Comments Start Date Stop Date Source Paternal Mesothelioma [facility] Stephan [facility] Paternal Multiple Myeloma [facility] Stephan [facility]aternal Lung [facility] Stephan Buck [facility] Paternal Bile duct cancer Universi ty [facility] Stephan Buck [facility] Paternal Liver cancer [facility]aternal Stomach cancer [facility] Paternal uncle Brain cancer [facility] [place] [facility] Natural sister -Unknown cancer [facility] [place] [facility] Natural sister Graves' disease [facility] [place] [facility] Natural sister Uterine cancer [facility] [place] [facility] Natural sister Vaginal cancer [facility] [place] [facility] Natural father -Other cancer [facility] [place] [facility] Natural father Hypertension [facility] [place] [facility] Natural father Melanoma [facility] Natural father Prostate cancer [facility] [place] [facility] Natural father Sarcoma [facility] Natural father Skin cancer [facility] [place] [facility] Maternal aunt Colon cancer [facility] [place] [facility] Maternal Colon cancer [place] [facility] Maternal Graves' disease [facility] Maternal Head [facility] neck [facility] Maternal Skin cancer [facility] Maternal Thyroid cancer [facility] MD [facility] [place] Natural mother Graves' disease [facility] [place] [facility] Natural mother Melanoma [facility] Natural mother Multiple Myeloma [facility] ers[facility] [place] [facility] Natural mother Skin cancer [facility] [place] [facility] Natural mother Thyroid cancer [facility] [place] [facility] Paternal aunt -Unknown cancer [facility] [place] [facility] Paternal aunt Colon cancer [facility] [place] [facility] Paternal aunt Ovarian cancer [facility] [place] [facility] Paternal aunt Kidney cancer [facility] [place] [facility] Social History Social Habit Start Date Stop Date Quantity Comments Source History of tobacco 2007-07-30 Passive smoker Un iversity of use 00:00:00 [place] [facility] Alcohol Std Drinks History [facility] Alcohol Comment Exposure to 2022-06-04 2022-06-14 Not sure University of SARS-CoV-2 (event) 00:00:00 11:40:00 [facility] Alcohol intake 2021-12-16 2021-12-16 Current University of 00:00:00 00:00:00 non-drinker of [facility] (finding) Cigarettes smoked 2021-09-26 2021-09-26 Univers ity of current (pack per 00:00:00 00:00:00 Mateo Armendariz ) - Reported Cancer Ce nter Cigarette 2021-09-26 2021-09-26 University of pack-years 00:00:00 00:00:00 [facility] Tobacco use and 2021-09-26 2021-09-26 Smokeless Universit y of exposure 00:00:00 00:00:00 tobacco non-user [facility] History SDOH 2021-07-12 2021-07-12 1 [facility] Alcohol Frequency 00:00:00 00:00:00 History SDOH 2021-07-12 2021-07-12 1 [facility] Alcohol Binge 00:00:00 00:00:00 History SDOH 2021-07-12 2021-07-12 0 [facility] Physical Activity 00:00:00 00:00:00 DPW History SDOH 2021-07-12 2021-07-12 0 [facility] Physical Activity 00:00:00 00:00:00 MPS History SDOH 2021-07-12 2021-07-12 1 [facility] Transport Med 00:00:00 00:00:00 History SDOH 2021-07-12 2021-07-12 1 [facility] Transport Non-Med 00:00:00 00:00:00 Sex [birth year] [facility] 00:00:00 00:00:00 Hospital Smoking Status Start Date Stop Date Source Tobacco smoking [facility] consumption unknown Smokes tobacco daily 2022-05-31 00:00:00 Sneha Funez - External Ex-smoker 2022-02-21 00:00:00 2022-02-21 [place] [facility] 00:00:00 Medical Branch Never smoked tobacco [facility] Medications Ordered Filled Start Stop Current Ordering Indication Dosage Frequency Signature Comments Components Source Medication Medication Date Date Medication? Clinician (SIG) Name Name Acetaminoph 2021-07 Yes 1{tbl} [id number] Take 1 Sneha en-Codeine 2-07 [id number] tablet by Seybold 300-30 MG 15:45: 3D mouth - oral Tablet 59 every 8 Exter na hours as l needed Methocarbam 2021-07 Yes Take by Smith y ol (ROBAXIN 2-07 mouth Seybold OR) 15:45: - 59 Externa l Cholecalcif 2021-07- No 2000U Take 2,000 Sneha [place] 50 MCG 2-07 12-07 units by Sey bold (1999) 15:45: 00:00 mouth - oral Tablet 37 :00 Externa l Pregabalin 2021-07- No 150mg Take 150 K elsey 150 MG oral 2- 12-07 mg by Seybol d Capsule 15:45: 00:00 mouth 3 - 37 :00 times Externa daily l predniSONE 2021-07 Yes [id number] 10mg Take 1 K elsey (DELTASONE) 2-07 tablet (10 Se ybold 10 MG oral 00:00: mg total) - tablet 00 by mouth Externa daily l Budesonide, 2021-07 Yes [id number] .5mg Take 2 mL Sneha Inhalation, 2-07 (0.5 mg Seybo ld 0.5 MG/2ML 00:00: total) by - inhalation 00 nebulizati Ext edna Suspension on 2 times l daily FLUTICASONE 2021-07 Yes [id number] 50ug Use 1 K elsey PROPIONATE, 2-07 spray (50 Sey bold NASAL, 50 00:00: mcg total) - MCG/ACT 00 in each Externa nasal nostril l Suspension daily Carvedilol 2021-07 Yes [id number] 12.5mg Take 1 Sneha 12.5 MG 1-28 tablet Seybold oral Tablet 00:00: (12.5 mg - 00 total) by Externa mouth in l the morning and 1 tablet (12.5 mg total) in the evening. Take with meals. Arformotero 2021-07 Yes [id number] 15ug Inhale 2 Sneha l Tartrate 1-28 mL (15 mcg Sey bold (Brovana) 00:00: total) - 15 MCG/2ML 00 into the Exter na inhalation lungs 2 l Inhalant times Solution daily Carvedilol 2021-07- No [id number] 12.5mg Take 2 Sneha (Coreg) 08-26 12-07 tablets Seybold 6.25 MG 00:00: 00:00 (12.5 mg - oral Tablet 00 :00 total) by Ext edna mouth in l the morning and 2 tablets (12.5 mg total) in the evening. Take with meals. haloperidol 2021-07 Yes 1mg 1 mg, Unive rs lactate 18 Intravenou ity of (HALDOL) 16:32: s, PRN, 1 [place] injection 1 11 dose, Medical mg Starting Branch on Sun06/16/22 at 1032, Until Discontinu ed, Routine, Nausea and Vomiting (N/V), PACU haloperidol 2021-07- No 1mg 1 mg, Univ ers lactate 18 18 Intravenou ity o f (HALDOL) 16:32: 19:40 s, PRN, 1 Rajeev as injection 1 11 :09 dose, Medical mg Starting Branch on Sun06/16/22 at 1032, Until Sun06/16/22 at 1340, Routine, Nausea and Vomiting (N/V), PACU gadobenate 2021-07- No [id number] .2mL/kg 18 mL (0.2 Univers dimeglumine 1-18 11-18 mL/kg ?90 it y of (MULTIHANCE 16:30: 16:15 kg), [place] -20 mL) 00 :00 Intravenou Medica l injection s, ONCE, 1 Bran ch 18 mL dose, On Sun06/16/22 at 1030, Routine phenazopyri 2021-07 Yes 100mg Take 100 U nivers dine 100 mg 1-18 mg by ity of tablet 11:40: mouth. [address] carvediloL 2021-07 Yes 6.25mg Take 6.25 Univers 6.25 mg 1-18 mg by ity of tablet 11:40: mouth in [address] morning Branch and 6.25 mg in the evening. Take with meals. phenazopyri 2021-07 Yes 100mg Take 100 U nivers dine 100 mg 1-18 mg by ity of tablet 11:40: mouth. [address] carvediloL 2021-07 Yes 6.25mg Take 6.25 Univers 6.25 mg 1-18 mg by ity of tablet 11:40: mouth in [place] [address] [facility] morning Branch and 6.25 mg in the evening. Take with meals. phenazopyri 2021-07 Yes 100mg Take 100 U nivers dine 100 mg 1-18 mg by ity of tablet 11:40: mouth. [address] carvediloL 2021-07 Yes 6.25mg Take 6.25 Univers 6.25 mg 1-18 mg by ity of tablet 11:40: mouth in [place] 08 [facility] and 6.25 mg in the evening. Take with meals. carvediloL 2021-07 Yes 6.25mg Take 6.25 Univers 6.25 mg 1-14 mg by ity of tablet 12:44: mouth in [address] and 6.25 mg in the evening. Take with meals. Phenazopyri 2021-07- No 100mg Q.[id number] Take 100 Sneha dine HCl 08-07 [id number] mg by Sey bold 100 MG oral 16:44: 00:00 3D mouth 3 - Tablet 56 :00 times Externa daily as l needed Phenazopyri 2021-07- No 100mg Q.[id number] Take 100 Sneha dine HCl 08-07 [id number] mg by Sey bold 100 MG oral 16:43: 00:00 3D mouth 3 - Tablet 22 :00 times Externa daily as l needed Dicyclomine 2021-07- No 10mg Q4H Take 10 mg Sneha HCl 10 MG 08-07 by mouth Seybo ld oral 16:27: 00:00 every 4 - Capsule 54 :00 hours as Externa needed l Esomeprazol 2021-07- No 40mg Take 40 mg Sneha e Magnesium 08-07 by mouth Sey bold 40 MG oral 16:27: 00:00 every - Delayed 54 :00 morning Externa Release (before l Capsule breakfast) Phenazopyri 2021-07- No 100mg Take 100 Sneha dine HCl 08-07 mg by Seybold 100 MG oral 16:24: 00:00 mouth - Tablet 36 :00 Externa l Fluconazole 2021-07- No 150mg Take 150 Sneha 100 MG oral 08-07 11-09 mg by Seybol d Tablet 15:41: 00:00 mouth - 19 :00 daily Externa l Carvedilol 2021-07 Yes [id number] 6.25mg Take 1 Sneha (Coreg) 1-09 tablet Seybold 6.25 MG 00:00: (6.25 mg - oral Tablet 00 total) by Ext edna mouth in l the morning and 1 tablet (6.25 mg total) in the evening. Take with meals. Esomeprazol 2021-07 Yes [id number] 20mg Take 1 Sneha e Magnesium 1-09 capsule Seybo ld 20 MG oral 00:00: (20 mg - Delayed 00 total) by Externa Release mouth l Capsule every morning (before breakfast) Dicyclomine 2021-07 Yes [id number] 10mg Q.[id number] Take 1 Sneha HCl 10 MG - [id number] capsule S eybold oral 00:00: 3D (10 mg - Capsule 00 total) by Externa mouth 3 l times daily as needed Gabapentin 2021-07 Yes [id number] 900mg Take 3 Sneha 300 MG oral -09 capsules Seyb old Capsule 00:00: (900 mg - 00 total) by Externa mouth 3 l times daily Arformotero 2021-07 Yes [id number] 15ug Inhale 2 Sneha l Tartrate 1-09 mL (15 mcg Sey bold (Brovana) 00:00: total) - 15 MCG/2ML 00 into the Exter na inhalation lungs 2 l Inhalant times Solution daily Phenazopyri 2021-07 Yes [id number] 100mg Q.[id number] Take 1 Sneha dine HCl -09 [id number] tablet Sey bold 100 MG oral 00:00: 3D (100 mg - Tablet 00 total) by Externa mouth 3 l times daily as needed for pain Esomeprazol 2021-07 Yes [id number] 20mg Take 1 Sneha e Magnesium 1-09 capsule Seybo ld 20 MG oral 00:00: (20 mg - Delayed 00 total) by Externa Release mouth l Capsule every morning (before breakfast) Dicyclomine 2021-07 Yes [id number] 10mg Q.[id number] Take 1 Sneha HCl 10 MG 08-07 [id number] capsule S eybold oral 00:00: 3D (10 mg - Capsule total) by Externa mouth 3 l times daily as needed Phenazopyri 2021-07 Yes [id number] 100mg Q.[id number] Take 1 Sneha dine HCl 08-07 [id number] tablet Sey bold 100 MG oral 00:00: 3D (100 mg - Tablet total) by Externa mouth 3 l times daily as needed for pain Levalbutero 2021-07- Yes [id number] 1.25mg Q.[id number] Take 3 m L Sneha l HCl 1.25 08-07- [id number] (1.25 mg Seybold MG/3ML 00:00: 05:59 3D total) by - inhalation 00 :00 nebulizati Ext edna Inhalant on every 8 l Solution hours as needed for wheezing Levalbutero 2021-07- No [id number] 1.25mg Q.[id number] Take 3 m L Sneha l HCl 1.25 08-07 [id number] (1.25 mg Seybold MG/3ML 00:00: 00:00 3D total) by - inhalation 00 :00 nebulizati Ext edna Inhalant on every 8 l Solution hours as needed for wheezing Atorvastati 2021-07 Yes [id number] 10mg Take 1 Sneha n Calcium 1-04 tablet (10 Seyb old (Lipitor) 00:00: mg total) - 10 MG oral 00 by mouth Exter na Tablet daily l Atorvastati 2021-07 Yes [id number] 10mg Take 1 Sneha n Calcium 1-04 tablet (10 Seyb old (Lipitor) 00:00: mg total) - 10 MG oral 00 by mouth Exter na Tablet daily l Cholecalcif 2021-07 Yes 1999U Take 2,000 Sneha [place] 50 MCG 1-02 units by Seyb old (1999) 15:48: mouth - oral Tablet 52 Externa l Cholecalcif 2021-07 Yes 1999U Take 2,000 Sneha [place] 50 MCG 1-02 units by yb old (1999) 15:48: mouth - oral Tablet 52 Externa l Dicyclomine 2021-07 Yes 10mg Q4H Take 10 mg Sneha HCl 10 MG 1-02 by mouth Seybol d oral 15:48: every 4 - Capsule 52 hours as Externa needed l Fluconazole 2021-07 Yes 150mg Take 150 K elsey 100 MG oral 1-02 mg by Seybold Tablet 15:48: mouth - 52 daily Externa l Phenazopyri 2021-07 Yes 100mg Take 100 K elsey dine HCl 1-02 mg by Seybold 100 MG oral 15:48: mouth - Tablet 52 Externa l Carvedilol 2021-07 Yes [id number] 3.125mg Take 1 Sneha (Coreg) -02 tablet Seybold 3.125 MG 00:00: (3.125 mg - oral Tablet 00 total) by Ext edna mouth in l the morning and 1 tablet (3.125 mg total) in the evening. Take with meals. Carvedilol 2021-07 [id number] 3.125mg Take 1 Sneha (Coreg) 1-02 -09 tablet Seybold 3.125 MG 00:00: 00:00 (3.125 mg - oral Tablet 00 :00 total) by Ext edna mouth in l the morning and 1 tablet (3.125 mg total) in the evening. Take with meals. gabapentin 2021-07 Yes 900mg Take 3 Univ ers 300 mg 0-28 capsules ity of capsule 00:00: by mouth [place] 00 in the Medical morning Branch and 3 capsules at noon and 3 capsules in the evening. gabapentin 2021-07 Yes 900mg Take 3 Univ ers 300 mg 0-28 capsules ity of capsule 00:00: by mouth [place] 00 in the Medical morning Branch and 3 capsules at noon and 3 capsules in the evening. gabapentin 2021-07 Yes 900mg Take 3 Univ ers 300 mg 0-28 capsules ity of capsule 00:00: by mouth [place] 00 in the Medical morning Branch and 3 capsules at noon and 3 capsules in the evening. gabapentin 2021-07 Yes 900mg Take 3 Univ ers 300 mg 0-28 capsules ity of capsule 00:00: by mouth [place] 00 in the Medical morning Branch and 3 capsules at noon and 3 capsules in the evening. gabapentin 2021-07 Yes 900mg Take 3 Univ ers 300 mg 0-28 capsules ity of capsule 00:00: by mouth [place] 00 in the Medical morning Branch and 3 capsules at noon and 3 capsules in the evening. gabapentin 2021-07 Yes 900mg Take 3 Univ ers 300 mg 0-28 capsules ity of capsule 00:00: by mouth [place] 00 in the Medical morning Branch and 3 capsules at noon and 3 capsules in the evening. Gabapentin 2021-07 Yes 900mg Take 900 [place] 300 MG oral 0-28 mg by Seybold Capsule 00:00: mouth 3 - 00 times Externa daily l Gabapentin 2021-07- No 900mg Take 900 K elsey 300 MG oral 0-28 11-09 mg by Seybol d Capsule 00:00: 00:00 mouth 3 - 00 :00 times Externa daily l phenazopyri 0 Yes 100mg Take 100 U nivers dine 100 mg 9-02 mg by ity of tablet 13:17: mouth. [address] phenazopyri 2021-0 Yes 100mg Take 100 U nivers dine 100 mg 9-02 mg by ity of tablet 13:17: mouth. [address] phenazopyri 2021-0 Yes 100mg Take 100 U nivers dine 100 mg 9-02 mg by ity of tablet 13:17: mouth. [address] phenazopyri 2021-0 Yes 100mg Take 100 U nivers dine 100 mg 9-02 mg by ity of tablet 13:17: mouth. [address] phenazopyri 2021-0 Yes 100mg Take 100 U nivers dine 100 mg 9-02 mg by ity of tablet 13:17: mouth. [address] phenazopyri 2021-0 Yes 100mg Take 100 U nivers dine 100 mg 9-02 mg by ity of tablet 13:17: mouth. [address] phenazopyri 2021-0 Yes 100mg Take 100 U nivers dine 100 mg 9-02 mg by ity of tablet 13:17: mouth. [address] phenazopyri 2021-0 Yes 100mg Take 100 U nivers dine 100 mg 9-02 mg by ity of tablet 13:17: mouth. [address] phenazopyri 2021-0 Yes 100mg Take 100 U nivers dine 100 mg 9-02 mg by ity of tablet 13:17: mouth. [address] phenazopyri 2-0 Yes 100mg Take 100 U nivers dine 100 mg 9-02 mg by ity of tablet 13:17: mouth. [address] Furosemide 2-0 Yes Sneha 20 MG oral 8-24 Seybold Tablet 00:00: - 00 Externa l Furosemide 2021-0 2- No Sneha 20 MG oral 8-24 11-09 Seybold Tablet 00:00: 00:00 - 00 :00 Externa l gabapentin 2-0 Yes [id number] 600mg Take 2 U nivers 300 mg 8-13 capsules ity of capsule 00:00: by mouth [place] 00 in the [facility] Branch and 2 capsules at noon and 2 capsules in the evening. gabapentin 2021-0 Yes [id number] 600mg Take 2 U nivers 300 mg 8-13 capsules ity of capsule 00:00: by mouth [place] 00 in the [facility] Branch and 2 capsules at noon and 2 capsules in the evening. gabapentin 2021-0 Yes [id number] 600mg Take 2 U nivers 300 mg 8-13 capsules ity of capsule 00:00: by mouth [place] 00 in the [facility] Branch and 2 capsules at noon and 2 capsules in the evening. gabapentin 2021-0 Yes [id number] 600mg Take 2 U nivers 300 mg 8-13 capsules ity of capsule 00:00: by mouth [place] 00 in the [facility] Branch and 2 capsules at noon and 2 capsules in the evening. gabapentin 2-0 Yes [id number] 600mg Take 2 U nivers 300 mg 8-13 capsules ity of capsule 00:00: by mouth [place] 00 in the [facility] Branch and 2 capsules at noon and 2 capsules in the evening. gabapentin 2-0 Yes [id number] 600mg Take 2 U nivers 300 mg 8-13 capsules ity of capsule 00:00: by mouth [place] 00 in the [facility] Branch and 2 capsules at noon and 2 capsules in the evening. gabapentin 2-0 Yes [id number] 600mg Take 2 U nivers 300 mg 8-13 capsules ity of capsule 00:00: by mouth [place] 00 in the [facility] Branch and 2 capsules at noon and 2 capsules in the evening. gabapentin 2021-0 2022- No [id number] 600mg Take 2 Univers 300 mg 8-13 10-28 capsules ity of capsule 00:00: 00:00 by mouth [place] 00 :00 in the Medical morning Branch and 2 capsules at noon and 2 capsules in the evening. gabapentin 2021-0 2022- No [id number] 600mg Take 2 Univers 300 mg 8-13 10-28 capsules ity of capsule 00:00: 00:00 by mouth [place] 00 :00 in the Medical morning Branch and 2 capsules at noon and 2 capsules in the evening. budesonide Yes [id number] .5mg Inhale 2 Univers 0.5 mg/2 mL 8-12 mL in the ity of nebulizer 00:00: morning [place] solution 00 and 2 mL Medical in the Branch evening. lipase-prot Yes [id number] 2{capsu Take 2 Univers ease-amylas 8-12 le} capsules ity of e (CREON) 00:00: by mouth [place] 12,000-38,0 00 in the Medica l 00 -60,000 morning Branch unit and 2 capsule capsules at noon and 2 capsules in the evening. Take with meals. budesonide Yes [id number] .5mg Inhale 2 Univers 0.5 mg/2 mL 8-12 mL in the ity of nebulizer 00:00: morning [place] solution 00 and 2 mL Medical in the Branch evening. lipase-prot Yes [id number] 2{capsu Take 2 Univers ease-amylas 8-12 le} capsules ity of e (CREON) 00:00: by mouth [place] 12,000-38,0 00 in the Medica l 00 -60,000 morning Branch unit and 2 capsule capsules at noon and 2 capsules in the evening. Take with meals. budesonide Yes [id number] .5mg Inhale 2 [facility] 0.5 mg/2 mL 8-12 mL in the ity of nebulizer 00:00: morning [place] solution 00 and 2 mL Medical in the Branch evening. lipase-prot Yes [id number] 2{capsu Take 2 [facility] ease-amylas 8-12 le} capsules ity of e (CREON) 00:00: [place] 12[place] 00 in the Medica l 00 -60,000 morning Branch unit and 2 capsule capsules at noon and 2 capsules in the evening. Take with meals. budesonide 0 Yes [id number] .5mg Inhale 2 [facility] 0.5 mg/2 mL 8-12 mL in the ity of nebulizer 00:00: morning [place] solution 00 and 2 mL Medical in the Branch evening. lipase-prot 2021-0 Yes [id number] 2{capsu Take 2 [facility] ease-amylas 8-12 le} capsules ity of e (CREON) 00:00: [place] 12[place]000-38,[place] 00 in the Medica l 00 -60,000 morning Branch unit and 2 capsule capsules at noon and 2 capsules in the evening. Take with meals. budesonide Yes [id number] .5mg Inhale 2 [facility] 0.5 mg/2 mL 8-12 mL in the ity of nebulizer 00:00: morning [place] solution 00 and 2 mL Medical in the Branch evening. lipase-prot Yes [id number] 2{capsu Take 2 [facility] ease-amylas 8-12 le} capsules ity of e (CREON) 00:00: [place] 12[place]000-38,[place] 00 in the Medica l 00 -60,000 morning Branch unit and 2 capsule capsules at noon and 2 capsules in the evening. Take with meals. budesonide Yes [id number] .5mg Inhale 2 [facility] 0.5 mg/2 mL 8-12 mL in the ity of nebulizer 00:00: morning [place] solution 00 and 2 mL Medical in the Branch evening. lipase-prot 0 Yes [id number] 2{capsu Take 2 [facility] ease-amylas 8-12 le} capsules ity of e (CREON) 00:00: [place] 12,000-38,[place] 00 in the Medica l 00 -60,000 morning Branch unit and 2 capsule capsules at noon and 2 capsules in the evening. Take with meals. budesonide 0 Yes [id number] .5mg Inhale 2 [facility] 0.5 mg/2 mL 8-12 mL in the ity of nebulizer 00:00: morning [place] solution 00 and 2 mL Medical in the Branch evening. lipase-prot 2021-0 Yes [id number] 2{capsu Take 2 [facility] ease-amylas 8-12 le} capsules ity of e (CREON) 00:00: [place] 12,000-38,[place] 00 in the Medica l 00 -60,000 morning Branch unit and 2 capsule capsules at noon and 2 capsules in the evening. Take with meals. budesonide 0 Yes [id number] .5mg Inhale 2 [facility] 0.5 mg/2 mL 8-12 mL in the ity of nebulizer 00:00: morning [place] solution 00 and 2 mL Medical in the Branch evening. lipase-prot 2021-0 Yes [id number] 2{capsu Take 2 [facility] ease-amylas 8-12 le} capsules ity of e (CREON) 00:00: [place] 12,000-38,[place] 00 in the Medica l 00 -60,000 morning Branch unit and 2 capsule capsules at noon and 2 capsules in the evening. Take with meals. budesonide 0 Yes [id number] .5mg Inhale 2 [facility] 0.5 mg/2 mL 8-12 mL in the ity of nebulizer 00:00: morning [place] solution 00 and 2 mL Medical in the Branch evening. lipase-prot 2021-0 Yes [id number] 2{capsu Take 2 [facility] ease-amylas 8-12 le} capsules ity of e (CREON) 00:00: [place] 12,000-38,[place] 00 in the Medica l 00 -60,000 morning Branch unit and 2 capsule capsules at noon and 2 capsules in the evening. Take with meals. budesonide 0 Yes [id number] .5mg Inhale 2 [facility] 0.5 mg/2 mL 8-12 mL in the ity of nebulizer 00:00: morning [place] solution 00 and 2 mL Medical in the Branch evening. lipase-prot 2021-0 Yes [id number] 2{capsu Take 2 [facility] ease-amylas 8-12 le} capsules ity of e (CREON) 00:00: [place] 12,000-38,[place] 00 in the Medica l 00 -60,000 morning Branch unit and 2 capsule capsules at noon and 2 capsules in the evening. Take with meals. budesonide 2021-0 Yes [id number] .5mg Inhale 2 [facility] 0.5 mg/2 mL 8-12 mL in the ity of nebulizer 00:00: morning [place] solution 00 and 2 mL Medical in the Branch evening. lipase-prot 2021-0 Yes [id number] 2{capsu Take 2 [facility] ease-amylas 8-12 le} capsules ity of e (CREON) 00:00: [place] 12,000-38,[place] 00 in the Medica l 00 -60,000 morning Branch unit and 2 capsule capsules at noon and 2 capsules in the evening. Take with meals. budesonide 2021-0 Yes [id number] .5mg Inhale 2 [facility] 0.5 mg/2 mL 8-12 mL in the ity of nebulizer 00:00: morning [place] solution 00 and 2 mL Medical in the Branch evening. lipase-prot 2021-0 Yes [id number] 2{capsu Take 2 [facility] ease-amylas 8-12 le} capsules ity of e (CREON) 00:00: [place] 12,000-38,[place] 00 in the Medica l 00 -60,000 morning Branch unit and 2 capsule capsules at noon and 2 capsules in the evening. Take with meals. budesonide 2021-0 Yes [id number] .5mg Inhale 2 [facility] 0.5 mg/2 mL 8-12 mL in the ity of nebulizer 00:00: morning [place] solution 00 and 2 mL Medical in the Branch evening. lipase-prot 2021-0 Yes [id number] 2{capsu Take 2 [facility] ease-amylas 8-12 le} capsules ity of e (CREON) 00:00: by [place] 12,000-38,0 00 in the Medica l 00 -60,000 morning Branch unit and 2 capsule capsules at noon and 2 capsules in the evening. Take with meals. 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 Branch unit) tablet cholecalcif 2022-0 Yes [id number] 1000U Take 1 [facility] [place], 8-01 tablet by ity of vitamin D3, 00:00: mouth in [place] 25 mcg 00 the Medical ( morning. Branch unit) tablet cholecalcif 2022-0 Yes [id number] 1000U Take 1 [facility] [place], 8-01 tablet by ity of vitamin D3, 00:00: mouth in [place] 25 mcg 00 the Medical ( morning. Branch unit) tablet cholecalcif 2022-0 Yes [id number] 1000U Take 1 [facility] [place], 8-01 tablet by ity of vitamin D3, 00:00: mouth in [place] 25 mcg 00 the Medical ( morning. Branch unit) tablet cholecalcif 2022-0 Yes [id number] 1000U Take 1 [facility] [place], 8-01 tablet by ity of vitamin D3, 00:00: mouth in [place] 25 mcg 00 the Medical ( morning. Branch unit) tablet cholecalcif 2022-0 Yes [id number] 1000U Take 1 [facility] [place], 8-01 tablet by ity of vitamin D3, 00:00: mouth in [place] 25 mcg 00 the Medical ( morning. Branch unit) tablet cholecalcif 2022-0 Yes [id number] 1000U Take 1 [facility] [place], 8-01 tablet by ity of vitamin D3, 00:00: mouth in [place] 25 mcg 00 the Medical ( morning. Branch unit) tablet cholecalcif 2022-0 Yes [id number] 1000U Take 1 [facility] [place], 8-01 tablet by ity of vitamin D3, 00:00: mouth in [place] 25 mcg 00 the Medical (1,000 morning. Branch unit) tablet cholecalcif 2022-0 Yes [id number] 1000U Take 1 [facility] [place], 8-01 tablet by ity of vitamin D3, 00:00: mouth in [place] 25 mcg 00 the Medical (000 morning. Branch unit) tablet cholecalcif 2022-0 Yes [id number] 1000U Take 1 [facility] [place], 8-01 tablet by ity of vitamin D3, 00:00: mouth in [place] 25 mcg 00 the Medical (000 morning. Branch unit) tablet cholecalcif 2022-0 Yes [id number] 1000U Take 1 [facility] [place], 8-01 tablet by ity of vitamin D3, 00:00: mouth in [place] 25 mcg 00 the Medical (000 morning. Branch unit) tablet cholecalcif 2022-0 Yes [id number] 1000U Take 1 [facility] [place], 8-01 tablet by ity of vitamin D3, 00:00: mouth in [place] 25 mcg 00 the Medical (000 morning. Branch unit) tablet cholecalcif 2022-0 Yes [id number] 1000U Take 1 [facility] [place], 8-01 tablet by ity of vitamin D3, 00:00: mouth in [place] 25 mcg 00 the Medical (000 morning. Branch unit) tablet ondansetron 2022-0 Yes [id number] 4mg Take 1 [facility] 4 mg 7-31 tablet by ity of disintegrat 00:00: mouth [place] ing tablet 00 every 6 Medica l (six) Branch hours as needed for Nausea and Vomiting (N/V). ondansetron 2022-0 Yes [id number] 4mg Take 1 [facility] 4 mg 7-31 tablet by ity of disintegrat 00:00: mouth [place] ing tablet 00 every 6 Medica l (six) Branch hours as needed for Nausea and Vomiting (N/V). ondansetron 2022-0 Yes [id number] 4mg Take 1 [facility] 4 mg 7-31 tablet by ity of disintegrat 00:00: mouth [place] ing tablet 00 every 6 Medica l (six) Branch hours as needed for Nausea and Vomiting (N/V). ondansetron 2022-0 Yes [id number] 4mg Take 1 [facility] 4 mg 7-31 tablet by ity of disintegrat 00:00: mouth [place] ing tablet 00 every 6 Medica l (six) Branch hours as needed for Nausea and Vomiting (N/V). ondansetron 2022-0 Yes [id number] 4mg Take 1 [facility] 4 mg 7-31 tablet by ity of disintegrat 00:00: mouth [place] ing tablet 00 every 6 Medica l (six) Branch hours as needed for Nausea and Vomiting (N/V). ondansetron 2-0 Yes [id number] 4mg Take 1 [facility] 4 mg 7-31 tablet by ity of disintegrat 00:00: mouth [place] ing tablet 00 every 6 Medica l (six) Branch hours as needed for Nausea and Vomiting (N/V). ondansetron 2-0 Yes [id number] 4mg Take 1 [facility] 4 mg 7-31 tablet by ity of disintegrat 00:00: mouth [place] ing tablet 00 every 6 Medica l (six) Branch hours as needed for Nausea and Vomiting (N/V). ondansetron 2-0 Yes [id number] 4mg Take 1 [facility] 4 mg 7-31 tablet by ity of disintegrat 00:00: mouth [place] ing tablet 00 every 6 Medica l (six) Branch hours as needed for Nausea and Vomiting (N/V). ondansetron 2-0 Yes [id number] 4mg Take 1 [facility] 4 mg 7-31 tablet by ity of disintegrat 00:00: mouth [place] ing tablet 00 every 6 Medica l (six) Branch hours as needed for Nausea and Vomiting (N/V). ondansetron 2-0 Yes [id number] 4mg Take 1 [facility] 4 mg 7-31 tablet by ity of disintegrat 00:00: mouth [place] ing tablet 00 every 6 Medica l (six) Branch hours as needed for Nausea and Vomiting (N/V). ondansetron 2022-0 Yes [id number] 4mg Take 1 [facility] 4 mg 7-31 tablet by ity of disintegrat 00:00: mouth [place] ing tablet 00 every 6 Medica l (six) Branch hours as needed for Nausea and Vomiting (N/V). ondansetron 2022-0 Yes [id number] 4mg Take 1 [facility] 4 mg 7-31 tablet by ity of disintegrat 00:00: mouth [place] ing tablet 00 every 6 Medica l (six) Branch hours as needed for Nausea and Vomiting (N/V). ondansetron Yes [id number] 4mg Take 1 [facility] 4 mg 7-31 tablet by ity of disintegrat 00:00: mouth [place] ing tablet 00 every 6 Medica l (six) Branch hours as needed for Nausea and Vomiting (N/V). Ondansetron Yes 4mg Q.25D Take 4 mg [facility] (ZOFRAN) 4 7-31 by mouth [place] [facility] MG oral 00:00: every 6 - TABLET 00 hours as Externa DISPERSIBLE needed l Ondansetron 0 Yes 4mg Q.25D Take 4 mg [facility] (ZOFRAN) 4 7-31 by mouth [place] MG oral 00:00: every 6 - TABLET 00 hours as Externa DISPERSIBLE needed l Ondansetron 0 Yes 4mg Q.25D Take 4 mg [facility] (ZOFRAN) 4 7-31 by mouth [facility] MG oral 00:00: every 6 - TABLET 00 hours as Externa DISPERSIBLE needed l levalbutero Yes [id number] 1.25mg Inhale [facility] l 1.25 mg/3 7-28 1.25 mg in it y of mL 00:00: the [place] nebulizer 00 morning Medical solution and 1.25 Branch mg at noon and 1.25 mg in the evening. levalbutero Yes [id number] 1.25mg Inhale [facility] l 1.25 mg/3 7-28 1.25 mg in it y of mL 00:00: the [place] nebulizer 00 morning Medical solution and 1.25 Branch mg at noon and 1.25 mg in the evening. levalbutero Yes [id number] 1.25mg Inhale [facility] l 1.25 mg/3 7-28 1.25 mg in it y of mL 00:00: the [place] nebulizer 00 morning Medical solution and 1.25 Branch mg at noon and 1.25 mg in the evening. levalbutero Yes [id number] 1.25mg Inhale [facility] l 1.25 mg/3 7-28 1.25 mg in it y of mL 00:00: the [place] nebulizer 00 morning Medical solution and 1.25 Branch mg at noon and 1.25 mg in the evening. levalbutero 0 Yes [id number] 1.25mg Inhale [facility] l 1.25 mg/3 7-28 1.25 mg in it y of mL 00:00: the [place] nebulizer 00 morning Medical solution and 1.25 Branch mg at noon and 1.25 mg in the evening. levalbutero 0 Yes [id number] 1.25mg Inhale Univers l 1.25 mg/3 7-28 1.25 mg in it y of mL 00:00: the [place] nebulizer 00 morning Medical solution and 1.25 Branch mg at noon and 1.25 mg in the evening. levalbutero 0 Yes [id number] 1.25mg Inhale [facility] l 1.25 mg/3 7-28 1.25 mg in it y of mL 00:00: the [place] nebulizer 00 morning Medical solution and 1.25 Branch mg at noon and 1.25 mg in the evening. levalbutero Yes [id number] 1.25mg Inhale [facility] l 1.25 mg/3 7-28 1.25 mg in it y of mL 00:00: the [place] nebulizer 00 morning Medical solution and 1.25 Branch mg at noon and 1.25 mg in the evening. levalbutero 0 Yes [id number] 1.25mg Inhale [facility] l 1.25 mg/3 7-28 1.25 mg in it y of mL 00:00: the [place] nebulizer 00 morning Medical solution and 1.25 Branch mg at noon and 1.25 mg in the evening. levalbutero 0 Yes [id number] 1.25mg Inhale [facility] l 1.25 mg/3 7-28 1.25 mg in it y of mL 00:00: the [place] nebulizer 00 morning Medical solution and 1.25 Branch mg at noon and 1.25 mg in the evening. levalbutero 0 Yes [id number] 1.25mg Inhale [facility] l 1.25 mg/3 7-28 1.25 mg in it y of mL 00:00: the [place] nebulizer 00 morning Medical solution and 1.25 Branch mg at noon and 1.25 mg in the evening. levalbutero 2022-0 Yes [id number] 1.25mg Inhale Univers l 1.25 mg/3 7-28 1.25 mg in it y of mL 00:00: the [place] nebulizer 00 morning Medical solution and 1.25 Branch mg at noon and 1.25 mg in the evening. levalbutero Yes [id number] 1.25mg Inhale [facility] l 1.25 mg/3 7-28 1.25 mg in it y of mL 00:00: the [place] nebulizer 00 morning Medical solution and 1.25 Branch mg at noon and 1.25 mg in the evening. Levalbutero Yes 1.25mg Inhale [place] l HCl 1.25 7-28 1.25 mg Sey[facility] d MG/3ML 00:00: into the - inhalation 00 lungs 3 Director Of [employer] Continuity a Inhalant times l Solution daily Levalbutero 1.25mg Inhale K elsey l HCl 1.25 7-28 -09 1.25 mg Sey[facility] ld MG/3ML 00:00: 00:00 into the - inhalation 00 :00 lungs 3 [employer] Of [employer] Continuity a Inhalant times l Solution daily albuterol Yes [id number] 2{puff} Inhale 2 [facility] 90 7-21 Puffs ity of mcg/actuati 00:00: every 6 [facility] as on inhaler 00 (six) Medical hours as Branch needed for Wheezing or Shortness of Breath. ondansetron Yes [id number] 4mg Take 1 [facility] (ZOFRAN) 4 7-21 tablet by ity of mg tablet 00:00: mouth [place] 00 every 8 Medical (eight) Branch hours as needed for Nausea and Vomiting (N/V). Nebulizer Yes [id number] Use as Un niru Accessories 7-21 directed ity of Kit 00:00: [place] 00 Medical Branch albuterol Yes [id number] 2{puff} Inhale 2 [facility] 90 7-21 Puffs ity of mcg/actuati 00:00: every 6 Raje[place] as on inhaler 00 (six) Medical hours as Branch needed for Wheezing or Shortness of Breath. ondansetron Yes [id number] 4mg Take 1 [facility] (ZOFRAN) 4 7-21 tablet by ity of mg tablet 00:00: mouth [place] 00 every 8 Medical (eight) Branch hours as needed for Nausea and Vomiting (N/V). Nebulizer Yes [id number] Use as Un niru Accessories - directed ity of Kit 00:00: [place] Medical Branch albuterol 0 Yes [id number] 2{puff} Inhale 2 [facility] 90 7-21 Puffs ity of mcg/actuati 00:00: every 6 [place] as on inhaler 00 (six) Medical hours as Branch needed for Wheezing or Shortness of Breath. ondansetron Yes [id number] 4mg Take 1 [facility] (ZOFRAN) 4 7-21 tablet by ity of mg tablet 00:00: mouth [place] 00 every 8 Medical (eight) Branch hours as needed for Nausea and Vomiting (N/V). Nebulizer 0 Yes [id number] Use as Un niru Accessories 7-21 directed ity of Kit 00:00: [place] Medical Branch albuterol Yes [id number] 2{puff} Inhale 2 [facility] 90 7-21 Puffs ity of mcg/actuati 00:00: every 6 [place] as on inhaler 00 (six) Medical hours as Branch needed for Wheezing or Shortness of Breath. ondansetron Yes [id number] 4mg Take 1 [facility] (ZOFRAN) 4 7-21 tablet by ity of mg tablet 00:00: mouth [place] 00 every 8 Medical (eight) Branch hours as needed for Nausea and Vomiting (N/V). Nebulizer 0 Yes [id number] Use as Un niru Accessories 7- directed ity of Kit 00:00: [place] Medical Branch albuterol 0 Yes [id number] 2{puff} Inhale 2 [facility] 90 7-21 Puffs ity of mcg/actuati 00:00: every 6 [place] as on inhaler 00 (six) Medical hours as Branch needed for Wheezing or Shortness of Breath. ondansetron 0 Yes [id number] 4mg Take 1 [facility] (ZOFRAN) 4 7-21 tablet by ity of mg tablet 00:00: mouth [place] 00 every 8 Medical (eight) Branch hours as needed for Nausea and Vomiting (N/V). Nebulizer 2021-0 Yes [id number] Use as Un niru Accessories - directed ity of Kit 00:00: Medical Branch albuterol Yes [id number] 2{puff} Inhale 2 [facility] 90 7-21 Puffs ity of mcg/actuati 00:00: every 6 Raj[place] as on inhaler 00 (six) Medical hours as Branch needed for Wheezing or Shortness of Breath. ondansetron Yes [id number] 4mg Take 1 [facility] (ZOFRAN) 4 7-21 tablet by ity of mg tablet 00:00: mouth [place] 00 every 8 Medical (eight) Branch hours as needed for Nausea and Vomiting (N/V). Nebulizer Yes [id number] Use as Un niru Accessories 02-16 directed ity of Kit 00:00: Medical Branch albuterol Yes [id number] 2{puff} Inhale 2 [facility] 90 7-21 Puffs ity of mcg/actuati 00:00: every 6 [facility] as on inhaler 00 (six) Medical hours as Branch needed for Wheezing or Shortness of Breath. ondansetron Yes [id number] 4mg Take 1 [facility] (ZOFRAN) 4 7-21 tablet by ity of mg tablet 00:00: mouth every 8 Medical (eight) Branch hours as needed for Nausea and Vomiting (N/V). Nebulizer 0 Yes [id number] Use as Un niru Accessories 02-16 directed ity of Kit 00:00: Medical Branch albuterol 0 Yes [id number] 2{puff} Inhale 2 [facility] 90 7-21 Puffs ity of mcg/actuati 00:00: every 6 [place] as on inhaler 00 (six) Medical hours as Branch needed for Wheezing or Shortness of Breath. ondansetron Yes [id number] 4mg Take 1 [facility] (ZOFRAN) 4 7-21 tablet by ity of mg tablet 00:00: mouth [place] 00 every 8 Medical (eight) Branch hours as needed for Nausea and Vomiting (N/V). Nebulizer 0 Yes [id number] Use as Un niru Accessories - directed ity of Kit 00:00: [place] [facility] Branch albuterol 2022-0 Yes [id number] 2{puff} Inhale 2 [facility] 90 7-21 Puffs ity of mcg/actuati 00:00: every 6 [facility] as on inhaler 00 (six) Medical hours as Branch needed for Wheezing or Shortness of Breath. ondansetron 0 Yes [id number] 4mg Take 1 [facility] (ZOFRAN) 4 7-21 tablet by ity of mg tablet 00:00: mouth [place] 00 every 8 Medical (eight) Branch hours as needed for Nausea and Vomiting (N/V). Nebulizer 0 Yes [id number] Use as Un niru Accessories - directed ity of Kit 00:00: [place] [facility] Branch albuterol 0 Yes [id number] 2{puff} Inhale 2 [facility] 90 7-21 Puffs ity of mcg/actuati 00:00: every 6 [place] as on inhaler 00 (six) Medical hours as Branch needed for Wheezing or Shortness of Breath. ondansetron 0 Yes [id number] 4mg Take 1 [facility] (ZOFRAN) 4 7-21 tablet by ity of mg tablet 00:00: mouth [place] 00 every 8 Medical (eight) Branch hours as needed for Nausea and Vomiting (N/V). Nebulizer 2021-0 Yes [id number] Use as Un niru Accessories - directed ity of Kit 00:00: [place] [facility] Branch albuterol 0 Yes [id number] 2{puff} Inhale 2 [facility] 90 7-21 Puffs ity of mcg/actuati 00:00: every 6 [place] as on inhaler 00 (six) Medical hours as Branch needed for Wheezing or Shortness of Breath. ondansetron 0 Yes [id number] 4mg Take 1 [facility] (ZOFRAN) 4 7-21 tablet by ity of mg tablet 00:00: mouth [place] 00 every 8 Medical (eight) Branch hours as needed for Nausea and Vomiting (N/V). Nebulizer 2021-0 Yes [id number] Use as Un niru Accessories - directed ity of Kit 00:00: [place] [facility] Branch albuterol 0 Yes [id number] 2{puff} Inhale 2 [facility] 90 7-21 Puffs ity of mcg/actuati 00:00: every 6 [place] as on inhaler 00 (six) Medical hours as Branch needed for Wheezing or Shortness of Breath. ondansetron 0 Yes [id number] 4mg Take 1 [facility] (ZOFRAN) 4 7-21 tablet by ity of mg tablet 00:00: mouth [place] 00 every 8 Medical (eight) Branch hours as needed for Nausea and Vomiting (N/V). Nebulizer 0 Yes [id number] Use as Un niru Accessories 7- directed ity of Kit 00:00: [place] [facility] albuterol 0 Yes [id number] 2{puff} Inhale 2 [facility] 90 7-21 Puffs ity of mcg/actuati 00:00: every 6 Raje[place] as on inhaler 00 (six) Medical hours as Branch needed for Wheezing or Shortness of Breath. ondansetron 0 Yes [id number] 4mg Take 1 [facility] (ZOFRAN) 4 7-21 tablet by ity of mg tablet 00:00: mouth [place] every 8 Medical (eight) Branch hours as needed for Nausea and Vomiting (N/V). Nebulizer 0 Yes [id number] Use as Un niru Accessories - directed ity of Kit 00:00: Medical Branch Albuterol 0 Yes 2{puff} Q.25D Inhale 2 [facility] HFA 108 (90 7-21 puffs into [employer]) 00:00: the lungs - MCG/ACT IN 00 every 6 Director Of Business Continuity a AERS hours as l needed Respiratory 0 Yes Use as Naty ey Therapy 02-16 directed [facility] [employer] 00:00: - (Barbara Baby 00 Externa Conversion l Kit) does not apply Misc Albuterol 0 Yes 2{puff} Q.25D Inhale 2 [facility] HFA 108 (90 7-21 puffs into [employer]) 00:00: the lungs - MCG/ACT IN 00 every 6 Director Of Business Continuity a AERS hours as l needed Respiratory 0 Yes Use as Naty ey Therapy 7-21 directed [employer] 00:00: - ([place] Baby 00 Externa Conversion l Kit) does not apply Misc Albuterol 0 Yes 2{puff} Q.25D Inhale 2 [facility] HFA 108 (90 7-21 puffs into [employer]) 00:00: the lungs - MCG/ACT IN 00 every 6 Director Of Business Continuity a AERS hours as l needed Respiratory Yes Use as Naty ey Therapy - directed [employer] 00:00: - ([place] Baby 00 Externa Conversion l Kit) does not apply Misc ESOMEPRAZOL Yes [id number] 40mg TAKE 1 [facility] E 40 mg 7-18 CAPSULE BY ity of capsule 00:00: MOUTH [place] 00 DAILY WITH Medical BREAKFAST. Branch ESOMEPRAZOL Yes [id number] 40mg TAKE 1 [facility] E 40 mg 7-18 CAPSULE BY ity of capsule 00:00: MOUTH [place] 00 DAILY WITH Medical BREAKFAST. Branch ESOMEPRAZOL Yes [id number] 40mg TAKE 1 [facility] E 40 mg 7-18 CAPSULE BY ity of capsule 00:00: MOUTH [place] 00 DAILY WITH Medical BREAKFAST. Branch ESOMEPRAZOL Yes [id number] 40mg TAKE 1 [facility] E 40 mg 7-18 CAPSULE BY ity of capsule 00:00: MOUTH [place] 00 DAILY WITH Medical BREAKFAST. Branch ESOMEPRAZOL Yes [id number] 40mg TAKE 1 [facility] E 40 mg 7-18 CAPSULE BY ity of capsule 00:00: MOUTH [place] 00 DAILY WITH Medical BREAKFAST. Branch ESOMEPRAZOL Yes [id number] 40mg TAKE 1 [facility] E 40 mg 7-18 CAPSULE BY ity of capsule 00:00: MOUTH [place] 00 DAILY WITH Medical BREAKFAST. Branch ESOMEPRAZOL Yes [id number] 40mg TAKE 1 [facility] E 40 mg 7-18 CAPSULE BY ity of capsule 00:00: MOUTH [place] 00 DAILY WITH Medical BREAKFAST. Branch ESOMEPRAZOL Yes [id number] 40mg TAKE 1 [facility] E 40 mg 7-18 CAPSULE BY ity of capsule 00:00: MOUTH [place] 00 DAILY WITH Medical BREAKFAST. Branch ESOMEPRAZOL Yes [id number] 40mg TAKE 1 [facility] E 40 mg 7-18 CAPSULE BY ity of capsule 00:00: MOUTH [place] 00 DAILY WITH Medical BREAKFAST. Branch ESOMEPRAZOL Yes [id number] 40mg TAKE 1 [facility] E 40 mg 7-18 CAPSULE BY ity of capsule 00:00: MOUTH [place] 00 DAILY WITH Medical BREAKFAST. Branch ESOMEPRAZOL Yes [id number] 40mg TAKE 1 [facility] E 40 mg 7-18 CAPSULE BY ity of capsule 00:00: MOUTH [place] 00 DAILY WITH Medical BREAKFAST. Branch ESOMEPRAZOL Yes [id number] 40mg TAKE 1 [facility] E 40 mg 7-18 CAPSULE BY ity of capsule 00:00: MOUTH [place] 00 DAILY WITH Medical BREAKFAST. Branch ESOMEPRAZOL Yes [id number] 40mg TAKE 1 [facility] E 40 mg 7-18 CAPSULE BY ity of capsule 00:00: MOUTH [place] 00 DAILY WITH Medical BREAKFAST. Branch Esomeprazol 2021- No 40mg Take 40 mg Sneha e Magnesium 7-18 -02 by mouth Sey bold 40 MG oral 00:00: 00:00 daily - Delayed 00 :00 (with Externa Release breakfast) l Capsule promethazin Yes Take by Uni vers e 5-19 mouth. ity of (PHENERGAN) 15:57: [place] 12.5 mg 37 MD tablet [facility] cholecalcif 2021- No 400U Take 400 [facility] [place] [place], 4-07 04-07 Units by ity of vitamin D3, 17:19: 00:00 mouth. Rajeev as (VITAMIN 10 :00 MD D3) 5,000 [facility] units tab n tablet [facility] diazePAM Yes 5mg Take 5 mg Univ ers (VALIUM) 5 4-07 by mouth 4 ity of mg tablet 17:18: (four) [place] 40 times a MD day. As [facility] needed [facility] esomeprazol Yes 40mg Take 40 mg Univers e (NexIUM) 2-28 by mouth 2 ity of 40 MG 09:25: (two) [place] capsule 16 times a MD day before [facility] meals. [facility] dicyclomine Yes 10mg Take 10 mg [facility] (BENTYL) 10 2-28 by mouth ity of mg capsule 09:25: every 4 [place] 16 (four) MD hours as [facility] needed. [facility] phenazopyri Yes 100mg Take 100 U nivers dine 2-28 mg by ity of (PYRIDIUM) 09:25: mouth [place] 100 mg 16 every 6 MD tablet (six) [facility] hours as n needed. [facility] zinc Yes Take by Univers (Chelated 2-28 mouth. ity of Zinc) 50 mg 09:25: [place] tab 16 MD [facility] magnesium Yes 4{tbl} Take 4 Univ ers oxide-prote 2-28 tablets by it y of in complex 09:25: mouth [place] (Mg-Plus-Pr 16 daily. MD carolyn Mccormick Complex) n 133 mg Cancer tablet Center cholecalcif Yes 2000U Take 2,000 [facility] [place], 2-28 Units by ity of vitamin D3, 09:25[place] (VITAMIN 16 MD D3) 2,000 Anderso units tab n tablet Cancer Center ascorbic Yes 500mg Take 500 Univ ers acid, 2-28 mg by ity of vitamin C, 09:25: mouth [place] (vitamin C) 16 daily. Pt MD 100 mg can't Anderso tablet remember n the dose Cancer Center ketoconazol 2022- No Seborrhea Apply Univers e (NIZORAL) 09-26 03-01 capitis topically ity of 2% shampoo 00:00: 05:59 to [place] 00 :00 affected MD area(s) 3 Anderso (three) n times a Cancer week Center Sunday, Sunday and Sunday. Leave in scalp for 5 minutes before washing off silver 2021- No Intertrigo Apply Uni vers sulfadiazin 09-26 03-15 topically it y of e 00:00: 04:59 to [place] (Silvadene) 00 :00 affected MD 1% cream area(s) Anderso twice n daily for Cancer 14 days. Center Or until rash clears carisoprodo 2021- No 350mg Take 350 Univers l (SOMA) 2-18 02-18 mg by ity of 350 mg 09:06: 00:00 mouth 4 [place] tablet 18 :00 (four) MD times a Anderso day as n needed for Cancer muscle Center spasms. HYDROcodone 2021- No 1{tbl} Take 1 U nivers -acetaminop 2-18 02-18 tablet by it y of hen (NORCO) 09:06: 00:00 [place] 5 mg-325 mg 05 :00 every 6 MD per tablet (six) Anderso hours as n needed for Cancer mild pain. Center Taking 5/ 300 mg prn clonazePAM 2021- No 1mg Take 1 mg U nivers (KlonoPIN) -18 -18 by mouth ity of 1 mg tablet 09:06: 00:00 daily. Rajeev as 01 :00 Reported MD maggie Mccormick 10/30/2016 n Cancer Center ondansetron Yes 2{tbl} 2 tablets Univers (ZOFRAN) 8 2-11 3 (three) ity of mg tablet 00:00: times a [place] 00 day. MD [facility] fluconazole 2021- No Candidiasis 100mg Take 1 Univers (Diflucan) 08-20 of skin tablet ity of 100 mg 00:00: 05:59 (100 mg) [place] tablet 00 :00 by mouth MD daily for Anderso 21 days. n Cancer Center phenazopyri Yes 100mg Take 100 B aylor dine 1-20 mg by [place] (PYRIDIUM) 13:50: mouth of 100 MG 48 every 6 Medicin tablet hours as e needed. Pantoprazol Yes 40mg Take 40 mg Sneha e Sodium 40 1-16 by mouth Seyb old MG oral 00:00: daily - Tablet 00 Externa Delayed l Response hydrocodone Yes 1{tbl} Take 1 Ba ylor -acetaminop 1-16 Tablet by Col leonie booker (AGLOGIC) 00:00: mouth as of 5-325 mg 00 needed. Medicin tablet e pantoprazol Yes 40mg Take 40 mg Mac e 1-16 by mouth Mary (PROTONIX) 00:00: daily. of 40 MG 00 Medicin tablet e Pantoprazol 2021- No 40mg Take 40 mg Sneha e Sodium 40 1-16 -09 by mouth Sey bold MG oral 00:00: 00:00 daily - Tablet 00 :00 Externa Delayed l Response HYDROcodone 2021- No Chronic 1{tbl} Take 1 Univers -acetaminop 1-16 18 pain tablet by crystal mccall of jhony ([place]) 00:00: 00:00 [place] 5 mg-325 mg 00 :00 every 6 MD per tablet (six) Anderso hours as n needed for Cancer moderate Center pain. carisoprodo 2021- No Chronic 350mg Take 1 Univers l (Soma) 08-14 pain tablet ity of 350 mg 00:00: 00:00 (350 mg) [place] tablet 00 :00 by mouth 4 MD (four) Anderso times a n day as Cancer needed for Center muscle spasms. dicyclomine No Chronic 10mg Take 1 Univers (BENTYL) 10 08-14 pain capsule ity of mg capsule 00:00: 00:00 (10 mg) by Stephan 00 :00 mouth MD every 8 Anderso (eight) n hours as Cancer needed Center (abdominal cramps). pantoprazol 2021- No Nausea 40mg Take 1 U nivers e 08-14 tablet (40 ity of (Protonix) 00:00: 00:00 mg) by Lobo dominguez 40 mg EC 00 :00 mouth MD tablet every Anderso morning n before Cancer breakfast. Center fluticasone 2021- No Chronic 1{puff} Inhale 1 Univers propionate- 08-14 pain puff by ity of salmeterol 00:00: 05:59 mouth [place] (Advair 00 :00 twice MD Diskus) 100 daily for And erso mcg-50 30 days. n mcg/inhalat Cancer ion diskus Center inhaler levoFLOXaci 2021- No Urinary 250mg Take 1 Univers n 08-14 tract tablet ity of (LEVAQUIN) 00:00: 05:59 infection, (250 mg) [place] 250 mg 00 :00 not by mouth MD tablet otherwise daily for And erso specified 21 days. n Cancer Center levofloxaci 2021- No 250mg Take 250 [facility] n 08-14-07 mg by [place] (LEVAQUIN) 00:00: 05:59 mouth of 250 MG 00 :00 daily. Medicin tablet e promethazin Yes 25mg Take 25 mg Mac e 1-04 by mouth [place] (PHENERGAN) 00:00: daily. of 25 MG 00 Medicin tablet e potassium 2021-1 Yes 20meq Take 20 [facility] chloride SA 2-21 mEq by [facility] (K-DUR, 00:00: mouth of KLOR-CON 00 daily. Medicin M20) 20 MEQ e tablet carisoprodo 2020-07 Yes [id number] 350mg Q.25D Take 1 UT l (Soma) 2-15 tablet Health 350 MG 00:00: (350 mg tablet 00 total) by mouth 4 (four) times a day for 14 days. Take one and one-half tablet every 6 hours. carisoprodo 2020-07 Yes 350mg Take 350 B aylor l (SOMA) 2-15 mg by [place] 350 MG 00:00: mouth 6 of tablet 00 times Medicin daily. e HYDROcodone 2020-07- No [id number] 2{tbl} Q.25D Take 2 UT -acetaminop 2-15 01-05 tablets by Alvaro booker (Rogers) 00:00: 05:59 mouth 4 5-325 MG 00 :00 (four) tablet times a day for 20 days. phenazopyri 2020-07 Yes UT dine 2-14 Health (Pyridium) 16:38: 100 MG 01 tablet Promethazin 2020-07 Yes 25mg Take 25 mg Sneha e HCl 25 MG 2-04 by mouth Seyb old oral Tablet 00:00: daily - 00 Externa l Promethazin 2020-07 Yes 25mg Take 25 mg Sneha e HCl 25 MG 2-04 by mouth Seyb old oral Tablet 00:00: daily - 00 Externa l Promethazin 2020-07 Yes 25mg Take 25 mg Sneha e HCl 25 MG 2-04 by mouth Seyb old oral Tablet 00:00: daily - 00 Externa l ondansetron 2020-07 Yes [facility] (Zofran) 8 2-04 Health MG tablet 00:00: 00 potassium 2020-07 Yes UT chloride CR 2-04 Health (Klor-Con 00:00: M20) 20 MEQ 00 ER tablet promethazin 2020-07 Yes UT e 2-04 Health (Phenergan) 00:00: 25 MG 00 tablet ondansetron 2020-07 Yes 4mg Take 4 mg B aylor (ZOFRAN) 8 2-04 by mouth Colle ge mg tablet 00:00: two times of 00 daily. Medicin e Ibuprofen 2020-07 Yes Sneha 200 MG oral 2-01 Seybold Capsule 00:00: - 00 Externa l diazePAM 2020-07 Yes 5mg Q.25D Take 5 mg [facility] (Valium) 5 1-24 by mouth 4 Hea lth MG tablet 00:00: (four) 00 times a day. diazepam 2020-07 Yes 5mg Take 5 mg [facility] (VALIUM) 5 1-24 by mouth Colle ge MG tablet 00:00: as needed. of 00 Medicin e Advair 2020-07 Yes [id number] INHALE ONE UT Diskus 1-23 (1) PUFF Health 100-50 00:00: BY MOUTH MCG/DOSE 00 TWICE diskus DAILY. inhaler Advair 2020-07 Yes [id number] INHALE ONE UT Diskus 1-23 (1) PUFF Health 100-50 00:00: BY MOUTH MCG/DOSE 00 TWICE diskus DAILY. inhaler dicyclomine 2020-07 Yes [id number] TAKE 1 UT (Bentyl) 10 0-21 CAPSULE BY He alth MG capsule 00:00: MOUTH 00 EVERY 4 HOURS dicyclomine 2020-07 Yes [id number] TAKE 1 UT (Bentyl) 10 0-21 CAPSULE BY He alth MG capsule 00:00: MOUTH 00 EVERY 4 HOURS fluconazole 2020-07 Yes [id number] TAKE 1 U T (Diflucan) 0-14 TABLET BY [facility] th 150 MG 00:00: MOUTH ONCE tablet 00 DAILY FOR 10 DAYS fluconazole 2020-07 Yes [id number] TAKE 1 U T (Diflucan) 0-14 TABLET BY [facility] th 150 MG 00:00: MOUTH ONCE tablet 00 DAILY FOR 10 DAYS lidocaine Yes UT (Xylocaine) 4-12 Health 2 % 00:00: solution 00 Erythromyci Erythromyci 2019-07 Yes NOMI Q6H TAKE 1 UT n Base 250 n Base 250 0-09 SIRISHA TABLET [facility] MG Oral MG Oral 00:00: M.D. EVERY 6 ans Tablet Tablet 00 HOURS DAILY. Fluticasone Fluticasone Yes NOMI Q0.5D INHALE 1 UT -Salmeterol -Salmeterol 1-17 SIRISHA PUFF TWICE [facility]ici 100-50 100-50 00:00: M.D. DAILY. ans MCG/DOSE MCG/DOSE 00 Inhalation Inhalation Aerosol Aerosol Powder Powder Breath Breath Activated Activated Carisoprodo Carisoprodo 2018-07 Yes NOMI Sig 1 1/2 UT l 350 MG l 350 MG 0-04 SIRISHA tab p.o. Physici Oral Tablet Oral Tablet 00:00: M.D. q6hr. for ans 00 pain fluticasone Yes INHALE 1 UT -salmeterol 9-20 PUFF TWICE He alth (Advair 00:00: DAILY. Diskus) 00 100-50 MCG/DOSE diskus inhaler Fluticasone Fluticasone Yes NOMI Q0.5D INHALE 1 UT -Salmeterol -Salmeterol 9-20 SIRISHA PUFF TWICE [facility] 100-50 100-50 00:00: M.D. DAILY. ans MCG/DOSE MCG/DOSE 00 Inhalation Inhalation Aerosol Aerosol Powder Powder Breath Breath Activated Activated Erythromyci Erythromyci Yes NOMI Q6H TAKE 1 UT n Base 250 n Base 250 5-17 SIRISHA CAPSULE [facility] MG Oral MG Oral 00:00: M.D. EVERY 6 ans Capsule Capsule 00 HOURS Delayed Delayed DAILY. Release Release Particles Particles Lidocaine Lidocaine Yes NOMI USE 5ML UT Viscous HCl Viscous HCl 3-22 SIRISHA EVERY 2 [facility] - 2 % - 2 % 00:00: M.D. HOURS ans Mouth/Throa Mouth/Throa 00 NEEDED. t Solution t Solution Ciprofloxac Ciprofloxac 2016-07 Yes NOMI Q0.5D TAKE 1 UT in HCl - in HCl - 1-21 SIRISHA TABLET Ph ysici 500 MG Oral 500 MG Oral 00:00: M.D. TWICE ans Tablet Tablet 00 DAILY. levoFLOXaci levoFLOXaci Yes NOMI QD TAKE 1 UT n 500 MG n 500 MG 7-28 SIRISHA TABLET Ph ysici Oral Tablet Oral Tablet 00:00: M.D. DAILY ans 00 DIRECTED. ADVAIR 2017 Yes daily as Univers DISKUS 4-27 needed. ity of 100-50 00:00: [place] mcg/dose 00 MD diskus Anderso inhaler [facility] Fluconazole Fluconazole Yes NOMI TAKE UT 150 MG Oral 150 MG Oral 3-22 SIRISHA DIRECTED. Physici Tablet Tablet 00:00: M.D. ans 00 Fluticasone Fluticasone 2016-0 Yes NOMI INHALE 1 UT -Salmeterol -Salmeterol 3-17 SIRISHA PUFF TWICE [facility] 100-50 100-50 00:00: M.D. DAILY. ans MCG/DOSE MCG/DOSE 00 Brand only Inhalation Inhalation Aerosol Aerosol Powder Powder Breath Breath Activated Activated Nystatin Nystatin [place] [id number] 2-17 SIRISHA SPIT 5ML Phys ici UNIT/ML UNIT/ML 00:00: M.D. EVERY 12 ans Mouth/Throa Mouth/Throa 00 HOURS . t t Suspension Suspension potassium 2015- Yes 40meq QD Take 40 Meth [place] chloride 9-[address] (K-DUR) 20 20:58: mouth Hospit a MEQ CR 47 daily. l tablet dicyclomine Yes 10mg Q.25D Take 10 mg [facility] (BENTYL) 10 9-[address] MG capsule 20:58: (four) Hospi ta 47 times a l day before meals and nightly. carisoprodo Yes 525mg Q.25D Take 525 [facility] l (SOMA) 9-[address] 350 MG 20:58: mouth 4 Hospita tablet 47 (four) l times a day as needed for muscle spasms. HYDROcodone Yes 1{tbl} Q4H Take 1 Me thodi -acetaminop 9-[address] hen (NORCO) 20:58: mouth Hospi ta 5-325 mg 47 every 4 l per tablet (four) hours as needed for moderate pain. fluconazole Yes 150mg QD Take 150 M ethodi (DIFLUCAN) 9-[address] 100 MG 20:58: mouth Hospita tablet 47 daily. l PROAIR HFA Yes INHALE TWO M ethodi 90 8-12 (2) st mcg/actuati 00:00: PUFF(S) BY Hospita on inhaler 00 MOUTH l EVERY FOUR HOURS NEEDED FOR WHEEZING, COUGHING OR SHORTNESS OF BREATH. clonAZEPAM Yes TAKE ONE Met hodi (KlonoPIN) 8-12 (1) st 1 MG tablet 00:00: TABLET(S) H ospita 00 BY MOUTH l FOUR TIMES A DAY. esomeprazol 2015-0 Yes 40mg Q.5D Take 40 mg [facility] (NexIUM) 8-[address] 40 MG 00:00: (two) Hospita capsule 00 times a l day. carisoprodo 2007- Yes 350mg Take 350 U nivers l (SOMA) 3-30 mg by ity of 350 mg 00:00: mouth. [place] tablet 00 MD [facility] Immunizations Ordered Filled Immunization Date Status Comments [facility] e Immunization Name Name Remdesivir 2022-02-25 Completed University of 00:00: [place] [facility] Remdesivir 2022-02-25 Completed University of 00:00:00 [facility] Remdesivir 2022-02-25 Completed University of 00:00:00 [facility] Remdesivir 2022-02-25 Completed University of 00:00:00 [facility] Remdesivir 2022-02-25 Completed University of 00:00:00 [facility] Remdesivir 2022-02-25 Completed University of 00:00:00 [facility] Remdesivir 2022-02-25 Completed University of 00:00:00 [facility] Remdesivir 2022-02-25 Completed University of 00:00:00 [facility] Remdesivir 2022-02-25 Completed University of 00:00:00 [place] [facility] Remdesivir 2022-02-25 Completed University of 00:00:00 [facility] Remdesivir 2022-02-25 Completed University of 00:00:00 [facility] Remdesivir 2022-02-25 Completed University of 00:00:00 [facility] Remdesivir 2022-02-25 Completed University of 00:00:00 [facility] Remdesivir 2022-02-24 Completed University of 00:00:00 [facility] Remdesivir 2022-02-24 Completed University of 00:00:00 [facility] Remdesivir 2022-02-24 Completed University of 00:00:00 [facility] Remdesivir 2022-02-24 Completed University of 00:00:00 [facility] Remdesivir 2022-02-24 Completed University of 00:00:00 [facility] Remdesivir 2022-02-24 Completed University of 00:00:00 [facility] Remdesivir 2022-02-24 Completed University of 00:00:00 [place] [facility] Remdesivir 2022-02-24 Completed University of 00:00:00 [place] [facility] Remdesivir 2022-02-24 Completed University of 00:00:00 [place] [facility] Remdesivir 2022-02-24 Completed University of 00:00:00 [place] [facility] Remdesivir 2022-02-24 Completed University of 00:00:00 [place] [facility] Remdesivir 2022-02-24 Completed University of 00:00:00 [place] [facility] Remdesivir 2022-02-24 Completed University of 00:00:00 [place] [facility] Remdesivir 2022-02-24 Completed University of 00:00:00 [place] [facility] Remdesivir 2022-02-24 Completed University of 00:00:00 [place] [facility] Remdesivir 2022-02-24 Completed University of 00:00:00 [place] [facility] Remdesivir 2022-02-24 Completed University of 00:00:00 [place] [facility] Remdesivir 2022-02-24 Completed University of 00:00:00 [place] [facility] Remdesivir 2022-02-24 Completed University of 00:00:00 [place] [facility] Remdesivir 2022-02-24 Completed University of 00:00:00 [place] [facility] Remdesivir 2022-02-24 Completed University of 00:00:00 [place] [facility] Remdesivir 2022-02-24 Completed University of 00:00:00 [place] [facility] Remdesivir 2022-02-24 Completed University of 00:00:00 [place] [facility] Remdesivir 2022-02-24 Completed University of 00:00:00 [place] [facility] Remdesivir 2022-02-24 Completed University of 00:00:00 [place] [facility] Remdesivir 2022-02-24 Completed University of 00:00:00 [place] [facility] Remdesivir 2022-02-23 Completed University of 00:00:00 [place] [facility] Remdesivir 2022-02-23 Completed University of 00:00:00 [place] [facility] Remdesivir 2022-02-23 Completed University of 00:00:00 [place] [facility] Remdesivir 2022-02-23 Completed University of 00:00:00 [place] [facility] Remdesivir 2022-02-23 Completed University of 00:00:00 [place] [facility] Remdesivir 2022-02-23 Completed University of 00:00:00 [place] [facility] Remdesivir 2022-02-23 Completed University of 00:00:00 [place] [facility] Remdesivir 2022-02-23 Completed University of 00:00:00 [place] [facility] Remdesivir 2022-02-23 Completed University of 00:00:00 [place] [facility] Remdesivir 2022-02-23 Completed University of 00:00:00 [place] [facility] Remdesivir 2022-02-23 Completed University of 00:00:00 [place] [facility] Remdesivir 2022-02-23 Completed University of 00:00:00 [place] [facility] Remdesivir 2022-02-23 Completed University of 00:00:00 [place] [facility] Remdesivir 2022-02-22 Completed University of 00:00:00 [place] [facility] Remdesivir 2022-02-22 Completed University of 00:00:00 [place] [facility] Remdesivir 2022-02-22 Completed University of 00:00:00 [place] [facility] Remdesivir 2022-02-22 Completed University of 00:00:00 [place] [facility] Remdesivir 2022-02-22 Completed University of 00:00:00 [place] [facility] Remdesivir 2022-02-22 Completed University of 00:00:00 [place] [facility] Remdesivir 2022-02-22 Completed University of 00:00:00 [place] [facility] Remdesivir 2022-02-22 Completed University of 00:00:00 [place] [facility] Remdesivir 2022-02-22 Completed University of 00:00:00 [place] [facility] Remdesivir 2022-02-22 Completed University of 00:00:00 [place] [facility] Remdesivir 2022-02-22 Completed University of 00:00:00 [place] [facility] Remdesivir 2022-02-22 Completed University of 00:00:00 [place] [facility] Remdesivir 2022-02-22 Completed University of 00:00:00 [place] [facility] Remdesivir 2022-02-21 Completed University of 00:00:00 [place] [facility] Remdesivir 2022-02-21 Completed University of 00:00:00 [place] [facility] Remdesivir 2022-02-21 Completed University of 00:00:00 [place] [facility] Remdesivir 2022-02-21 Completed University of 00:00:00 [place] [facility] Remdesivir 2022-02-21 Completed University of 00:00:00 [facility] Remdesivir 2022-02-21 Completed University of 00:00:00 [facility] Remdesivir 2022-02-21 Completed University of 00:00:00 [facility] Remdesivir 2022-02-21 Completed University of 00:00:00 [facility] Remdesivir 2022-02-21 Completed University of 00:00:00 [facility] Remdesivir 2022-02-21 Completed University of 00:00:00 [facility] Remdesivir 2022-02-21 Completed University of 00:00:00 [facility] Remdesivir 2022-02-21 Completed University of 00:00:00 [facility] Remdesivir 2022-02-21 Completed University of 00:00:00 [facility] Vital Signs Vital Name Observation Time Observation Value Comments Source Systolic blood 2022-07-05 120 mm[Hg] Sneha Mcqueen d - pressure 22:06:00 External Diastolic blood 2022-07-05 78 mm[Hg] Sneha Fuentes ld - pressure 22:06:00 External Heart rate 2022-07-05 73 /min Sneha Funez - :43:00 External Body temperature 2022-07-05 36.56 Fanta Sneha Bo old - 21:43:00 External Respiratory rate 2022-07-05 14 /min Sneha Soriano old - 21:43:00 External Body height 2022-07-05 152.4 cm Sneha Funez - 21:43:00 External Body weight 2022-07-05 92.987 kg Sneha Funez - 21:43:00 External BMI 2022-07-05 40.04 kg/m2 Sneha Funez - 21:43:00 External Oxygen saturation 2022-07-05 99 /min Sneha wallace - in Arterial blood 21:43:00 External by Pulse oximetry Systolic blood 2022-06-16 148 mm[Hg] University of pressure 17:00:00 [facility] Diastolic blood 2022-06-16 87 mm[Hg] University o f pressure 17:00:00 [facility] Respiratory rate 2022-06-16 15 /min University of 17:00:00 [facility] Oxygen saturation 2022-06-16 88 /min University of in Arterial blood 17:00:00 [place] [facility] mihaela by Pulse oximetry Branch Heart rate 2022-06-16 76 /min University 16:40:00 [facility] Body temperature 2022-06-16 36.5 Fanta University of 16:40:00 [facility] Body height 2022-06-16 152.4 cm University of 13:07:00 [facility] Body weight 2022-06-16 90 kg University of 13:07:00 [facility] BMI 2022-06-16 38.75 kg/m2 University of 13:07:00 [facility] Respiratory rate 2022-06-16 16 /min University 13:26:00 [facility] Systolic blood 2022-06-16 153 mm[Hg] University of pressure 13:07:00 [facility] Diastolic blood 2022-06-16 100 mm[Hg] [place] o f pressure 13:07:00 [facility] Heart rate 2022-06-16 70 /min University 13:07:00 [facility] Body temperature 2022-06-16 37.17 Fanta University of 13:07:00 [facility] Body height 2022-06-16 152.4 cm University of 13:07:00 [facility] Body weight 2022-06-16 90 kg University of 13:07:00 [facility] BMI 2022-06-16 38.75 kg/m2 University of 13:07:00 [facility] Oxygen saturation 2022-06-16 94 /min [facility] in Arterial blood 13:07:00 [facility] by Pulse oximetry Branch Systolic blood 2022-06-07 142 mm[Hg] Sneha Sorianool d - pressure 21:24:00 External Diastolic blood 2022-06-07 93 mm[Hg] Sneha Mosleyybo ld - pressure 21:24:00 External Heart rate 2022-06-07 93 /min Sneha Mosleyybold - 21:24:00 External Body temperature 2022-06-07 35.89 Fanta Sneha Soriano old - 21:24:00 External Respiratory rate 2022-06-07 16 /min Sneha Soriano old - 21:24:00 External Body height 2022-06-07 152.4 cm Sneha Funez - 21:24:00 External Body weight 2022-06-07 87.091 kg Sneha Funez - 21:24:00 External BMI 2022-06-07 37.50 kg/m2 Sneha Sorianoold - 21:24:00 External Systolic blood 2022-05-31 160 mm[Hg] Sneha Sorianool d - pressure 20:30:00 External Diastolic blood 2022-05-31 98 mm[Hg] Sneha Sorianoo ld - pressure 20:30:00 External Heart rate 2022-05-31 119 /min Sneha Sorianoold - 20:30:00 External Body temperature 2022-05-31 37 Fanta Sneha Soriano old - 20:30:00 External Respiratory rate 2022-05-31 16 /min Sneha Soriano old - 20:30:00 External Body height 2022-05-31 152.4 cm Sneha Funez - 20:30:00 External Body weight 2022-05-31 87.091 kg Sneha Mosleyybold - 20:30:00 External BMI 2022-05-31 37.50 kg/m2 Sneha Mosleyybold - 20:30:00 External Systolic blood 2022-05-26 164 mm[Hg] Would not stop University of pressure 16:28:00 talking. [facility] Diastolic blood 2022-05-26 92 mm[Hg] Would not stop University of pressure 16:28:00 talking. [facility] Heart rate 2022-05-26 114 /min University of 16:28:00 [facility] Body height 2022-05-26 154.9 cm University of 16:28:00 [facility] Body weight 2022-05-26 85.73 kg University of 16:28:00 [facility] BMI 2022-05-26 35.71 kg/m2 University of 16:28:00 [facility] Systolic blood 2022-05-17 169 mm[Hg] University of pressure 13:09:00 [facility] Diastolic blood 2022-05-17 106 mm[Hg] University o f pressure 13:09:00 [facility] Heart rate 2022-05-17 67 /min University of 13:09:00 [facility] Body temperature 2022-05-17 36.72 Fanta University of 13:07:00 [facility] Respiratory rate 2022-05-17 18 /min University of 13:07:00 [facility] Body height 2022-05-17 154.9 cm University of 13:07:00 [facility] Body weight 2022-05-17 85.957 kg University 13:07:00 [facility] BMI 2022-05-17 35.81 kg/m2 University 13:07:00 [facility] Oxygen saturation 2022-05-17 90 /min r/a University of in Arterial blood 13:07:00 [facility] by Pulse oximetry Branch Systolic blood 2022-03-31 135 mm[Hg] University of pressure 18:15:00 [facility] Diastolic blood 2022-03-31 89 mm[Hg] University o f pressure 18:15:00 [facility] Heart rate 2022-03-31 82 /min University 18:15:00 [facility] Body temperature 2022-03-31 36.17 Fanta [facility] 18:15:00 [facility] Respiratory rate 2022-03-31 18 /min [facility] 18:15:00 [facility] Body height 2022-03-31 154.9 cm [facility] 18:15:00 [facility] Oxygen saturation 2022-03-31 90 /min [facility] in Arterial blood 18:15:00 [facility] [facility] by Pulse oximetry Branch Systolic blood 2021-08-18 116 mm[Hg] [facility] Colleg e pressure 19:23:00 of Medicine Diastolic blood 2021-08-18 78 mm[Hg] [facility] Colle ge pressure 19:23:00 of Medicine Heart rate 2021-08-18 76 /min [facility] 19:23:00 of Medicine Body temperature 2021-08-18 36.33 Fanta [facility] Jesus ege 19:23:00 of Medicine Respiratory rate 2021-08-18 20 /min [facility] Jesus ege 19:23:00 of Medicine Body height 2021-08-18 152.4 cm [facility] 19:23:00 of Medicine Body weight 2021-08-18 73.483 kg [facility] 19:23:00 of Medicine BMI 2021-08-18 31.64 kg/m2 [facility] 19:23:00 of Medicine Oxygen saturation 2021-08-18 92 /min [facility] Col lege in Arterial blood 19:23:00 of Medicin e by Pulse oximetry Heart rate 2021-12-16 70 /min [facility] 17:20:00 [facility] Respiratory rate 2021-12-16 12 /min [facility] 17:20:00 [facility] Oxygen saturation 2021-12-16 91 /min [facility] in Arterial blood 17:20:00 Stephan [place] by Pulse oximetry [facility] Systolic blood 2021-12-16 132 mm[Hg] University of pressure 17:15:00 [facility] Diastolic blood 2021-12-16 99 mm[Hg] [place] o f pressure 17:15:00 [facility] Body temperature 2021-12-16 36.61 Fanta [facility] 17:15:00 [facility] Body weight 2021-11-11 78 kg University 17:06:00 [facility] BMI 2021-11-11 33.58 kg/m2 University 17:06:00 [facility] Body height 2021-09-16 152.4 cm [facility] 14:24:00 [facility] BP Systolic 2018-12-02 122 mm[Hg] Location: [facility]UE; [facility] 14:49:00 Position: Sitting BP Diastolic 2018-12-02 84 mm[Hg] Location: [facility]; [facility] 14:49:00 Position: Sitting Height 2018-12-02 60 [in_us] [facility] 14:49:00 Heart Rate 2018-12-02 91 /min Location: R [facility] 14:49:00 Brachial Artery; Quality: Normal O2 SAT 2018-12-02 91 % Source: RA [facility] 14:49:00 BP Systolic 2017-08-03 133 mm[Hg] Location: [place]; [facility] 15:50:00 Position: Sitting BP Diastolic 2017-08-03 90 mm[Hg] Location: [place]; [facility] 15:50:00 Position: Sitting Weight 2017-08-03 196 [lb_av] [facility] 15:50:00 Body Mass Index 2017-08-03 38.28 kg/m2 [facility] Calculated 15:50:00 Temperature 2017-08-03 98.2 [degF] Method: Oral [facility] 15:50:00 Heart Rate 2017-08-03 106 /min Location: L [facility] 15:50:00 Brachial Artery; Quality: Normal Procedures Procedure Date / Time Performing Clinician Source Performed MAGNETIC RESONANCE 2022-06-16 Anesthesiology [facility] IMAGING UNDER ANESTHESIA 22:00:00 Medical Branch MR BRAIN W WO CONTRAST 2022-06-16 Aramis Alvarez Gene [facility] [place] 16:37:00 [facility] ASSIGNMENT OF BENEFITS 2022-06-16 Doctor Unassigned, No [facility] [place] 13:00:35 Name Medical Branch PATIENT QUESTIONNAIRE 2022-05-26 Doctor Unassigned, No [facility] [place] 05:01:00 Name Medical Branch MRI BREAST BILATERAL W WO 2021-12-16 Maikol, Marni U [facility] [place] CONTRAST INCL CAD 16:02:19 [facility] MD HEDRICK-19 (SARS-COV-2) 2021-12-14 Alpine, Marni [facility] PCR ASYMPTOMATIC 20:12:00 [facility] US BREAST COMPLETE 2021-09-16 Alpine, Marni U [facility] BILATERAL 19:51:00 [facility] MAMMO DIGITAL DIAGNOSTIC 2021-09-16 Alpine, Marni [facility] BILATERAL 18:38:36 [facility] URINE CULTURE 2021-08-21 Sheba Horton [facility] 03:29:00 [facility] URINALYSIS WITH 2021-08-21 Sheba Horton [facility] MICROSCOPIC IF INDICATED 03:29:00 MD Buck [facility] URINALYSIS MICROSCOPIC 2021-08-21 Sheba Horton [facility] [place] 03:29:00 [facility] WOUND CULTURE W/ GRAM 2021-08-21 Casey Bronson [facility] STAIN 03:14:00 [facility] COVID-19 (SARS-COV-2) 2021-08-21 Sheba Horton [facility] [place] ASYMPTOMATIC-LT 00:51:00 [facility] COMPLETE BLOOD COUNT W/ 2021-08-21 [facility] DIFFERENTIAL 00:47:00 [facility] COMPREHENSIVE METABOLIC 2021-08-21 [facility] PANEL 00:47:00 [facility] MAGNESIUM LEVEL 2021-08-21 [facility] 00:47[facility]00 [facility] PHOSPHORUS LEVEL 2021-08-21 Sheba Horton [facility] [place] 00:47:00 [facility] LACTATE DEHYDROGENASE 2021-08-21 Sheba Horton [facility] [place] 00:47:00 [facility] AMYLASE LEVEL 2021-08-21 Sheba Horton Universit y [facility] 00:47:00 [facility] LIPASE LEVEL 2021-08-21 Sheba Horton Universit y [facility] 00:47:00 [facility] Results CBC 2021-08-21 Sheba Horton Universit y [facility] 00:47:00 [facility] MANUAL DIFFERENTIAL 2021-08-21 Sheba Horton [facility]ive [facility] [place] 00:47:00 [facility] GLUCOSE LEVEL 2021-08-21 Sheba Horton Univers y [facility] 00:47:[address] [facility] BLOOD UREA NITROGEN 2021-08-21 Sheba Horton Unive [facility] [place] 00:47:[address] [facility] ELECTROLYTE PANEL 2021-08-21 Sheba Horton Univers ity [facility] 00:47:00 [facility] SERUM CREATININE 2021-08-21 Sheba Horton [facility] [place] 00:47:[address] [facility] .GLOMERULAR FILTRATION 2021-08-21 Sheba Horton [facility] [place] RATE 00:47:00 [facility] CALCIUM LEVEL TOTAL 2021-08-21 Sheba Horton [facility]ive [facility] [place] 00:47:00 [facility] ALBUMIN LEVEL 2021-08-21 Sheba Horton Universit y [facility] 00:47:00 [facility] ALKALINE PHOSPHATASE 2021-08-21 Sheba Horton [facility] [place] 00:47:00 [facility] ALANINE AMINOTRANSFERASE 2021-08-21 Sheba Horton University [facility] 00:47:00 [facility] ASPARTATE 2021-08-21 Sheba Horton Univers y [facility] AMINOTRANSFERASE 00:47:00 [facility] TOTAL PROTEIN 2021-08-21 Sheba Horton [facility] 00:47:[address] [facility] FRACTIONATED BILIRUBIN 2021-08-21 Piotr Salas Sheba Pinto Un [facility] 00:47:[address] [facility] URINALYSIS WITH 2021-08-14 Osvaldo Vidal [facility] MICROSCOPIC IF INDICATED 08:18:00 MD Buck maggei [facility] URINE DRUG SCREEN 2021-08-14 Marcy, [facility] [place] CONFIRMATION 08:18:[address] [facility] URINALYSIS MICROSCOPIC 2021-08-14 Osvaldo Vidal [facility] 08:18:[address] [facility] CT ABDOMEN PELVIS W 2021-08-14 Marcy, [facility] CONTRAST 05:01:[address] [facility] XR CHEST 1 VW 2021-08-14 [facility] 03:33:[address] [facility] XR ABDOMEN 1 VW PORTABLE 2021-08-14 Marcy, Osvaldo Roman [facility] 03:33:[address] [facility] CT HEAD WO CONTRAST 2021-08-14 [facility] 03:26:[address] [facility] COVID-19 (SARS-COV-2) 2021-08-14 Osvaldo Vidal [facility] ASYMPTOMATIC-LT 02:52:[address] [facility] COMPLETE BLOOD COUNT W/ 2021-08-14 Marcy [facility] DIFFERENTIAL 02:52:[address] [facility] COMPREHENSIVE METABOLIC 2021-08-14 Marcy, [facility] PANEL 02:52:[address] [facility] MAGNESIUM LEVEL 2021-08-14 [facility] 02:52:[address] [facility] PHOSPHORUS LEVEL 2021-08-14 Hita, [facility] 02:52:[address] [facility] PROTHROMBIN TIME 2021-08-14 [facility] 02:52:[address] [facility] APTT 2021-08-14 [facility] 02:52:[address] [facility] TYPE AND SCREEN 2021-08-14 Marcy, [facility] 02:52:[address] [facility] AMMONIA LEVEL 2021-08-14 Hita, [facility] 02:52:[address] [facility] AMYLASE LEVEL 2021-08-14 Hita, [facility] 02:52:[address] [facility] LIPASE LEVEL 2021-08-14 Hita, [facility] 02:52:[address] [facility] URIC ACID 2021-08-14 Hita, [facility] 02:52:[address] [facility] THYROID STIMULATING 2021-08-14 Hita, [facility] HORMONE 02:52:[address] [facility] HEMOGLOBIN A1C 2021-08-14 Hita, [facility] 02:52:[address] [facility] CONFIRM ABORH TYPE 2021-08-14 Hita, [facility] 02:52:[address] [facility] ABORH 2021-08-14 Hita, [facility] 02:52:[address] [facility] ANTIBODY SCREEN 2021-08-14 [facility] 02:52:[address] [facility] Results CBC 2021-08-14 [facility] 02:52:[address] [facility] MANUAL DIFFERENTIAL 2021-08-14 [facility] 02:52:[address] [facility] GLUCOSE LEVEL 2021-08-14 Hita, [facility] 02:52:[address] [facility] BLOOD UREA NITROGEN 2021-08-14 Hita, [facility] 02:52:[address] [facility] ELECTROLYTE PANEL 2021-08-14 Hita, [facility] 02:52:[address] [facility] SERUM CREATININE 2021-08-14 Hita, [facility] 02:52:[address] [facility] .GLOMERULAR FILTRATION 2021-08-14 Marcy, [facility] RATE 02:52:[address] [facility] CALCIUM LEVEL TOTAL 2021-08-14 Hita, [facility] 02:52:[address] [facility] ALBUMIN LEVEL 2021-08-14 Marcy [facility] 02:52:00 [facility] ALKALINE PHOSPHATASE 2021-08-14 [facility] 02:52:00 [facility] ALANINE AMINOTRANSFERASE 2021-08-14 Osvaldo Vidal [facility] 02:52:00 [facility] ASPARTATE 2021-08-14 [facility] AMINOTRANSFERASE 02:52:00 [facility] TOTAL PROTEIN 2021-08-14 [facility] 02:52:[address] [facility] FRACTIONATED BILIRUBIN 2021-08-14 [facility] 02:52:[address] [facility] CLOT EXPIRATION DATE 2021-08-14 Marcy, [facility] 02:52:[address] [facility] TMP INTERPRETATION 2021-08-14 Marcy [facility] ANTIBODY SCREEN NEGATIVE 02:52:00 MD Buck [facility] EKG, 12-LEAD (PORTABLE) 2021-08-14 Osvaldo Vidal [facility] 00:00:00 [facility] MA Digital Mammo DX Markus 2019-06-25 [facility] [id number] 00:00:00 [place] [id number] 2019-06-25 [facility] [place] Chest [place] [id number] 00:[place]:00 CT Neck soft tissue wo 2018-12-03 [facility] contrast [id number] 00:00:00 [QLH] CMP W/EGFR 2018-12-02 [facility] 00:00:00 [QLH] CBC (INCLUDES 2018-12-02 [facility] DIFF/PLT) 00:00:00 [QLH] LIPID PANEL 2018-12-02 [facility] 00:00:00 [QLH] THYROID PANEL 2018-12-02 [facility] 00:00:00 [QLH] URINALYSIS, 2018-12-02 [facility] COMPLETE 00:00:00 US Unlisted Ultrasound 2018-12-02 [facility] Procedure [id number] 00:00:00 [U] XRAY CHEST- AP AND 2018-12-02 [facility] LAT. AND APICAL LORDOTIC 00:00:00 VWS [id number] US Abdomen complete [id number] 2017-08-03 [facility] 00[facility]:00 XRAY Chest 2 views [id number] 2017-08-03 [facility] 00:[facility]:00 XRAY Ribs unilateral 2017-08-03 [facility] [id number] 00:00:00 XRAY Wrist AP and lateral 2017-08-03 [facility] [id number] 00:00:00 Plan of Care Planned Activity Planned Date Details Comments Source Future Scheduled 2022-06-30 COVID-19 Vaccination Uni versity of Test 08:23:31 (#1) [code = COVID-19 [facility] Vaccination (#1)] Cancer Guillermo ter Future Scheduled 2021-08-19 Screening for malignant [facility] 10:07:54 neoplasm of breast Medicine (procedure) [code = 459897786] Future Scheduled 2021-08-19 Pneumococcal Combined (1 [facility] Test 10:07:54 of 2 - PPSV23) [code = Medic ine Pneumococcal Combined (1 of 2 - PPSV23)] Future Scheduled 2021-08-19 COVID-19 Vaccine (1) [facility] Test 10:07:54 [code = COVID-19 Vaccine Med icine (1)] Future Scheduled 2021-08-19 TETANUS SHOT (ADULT) [facility] Test 10:07:54 [code = TETANUS SHOT Medicin e (ADULT)] Future Scheduled 2021-08-19 BMI FOLLOW UP PLAN [code [facility] Test 10:07:54 = BMI FOLLOW UP PLAN] Medici ne Future Scheduled 2021-08-19 Hepatitis C screening Ba [facility] Test 10:07:54 (procedure) [code = Medicine 898514219] Future Scheduled 2021-08-19 Human immunodeficiency B [facility] Test 10:07:54 virus screening Medicine (procedure) [code = 938659167] Future Scheduled 2021-08-19 Screening for malignant [facility] Test 10:07:54 neoplasm of cervix Medicine (procedure) [code = 124429759] Future Scheduled 2021-08-19 ZOSTER VACCINE (1 of 2) [facility] Test 10:07:54 [code = ZOSTER VACCINE Medic ine (1 of 2)] Future Scheduled 2021-08-19 FLU VACCINE > 6 MONTHS B [facility] of Test 10:07:54 [code = FLU VACCINE > 6 Medi cine MONTHS] Future Scheduled 2021-08-19 Screening for malignant [facility] of Test 10:07:54 neoplasm of colon Medicine (procedure) [code = 858941541] Encounters Start End Encounter Admission Attending Care Care Encounter Source Date/Time Date/Time Type Type Clinicians Facility Department ID 2021-12-09 Outpatient Eri MENDOZA [facility] [id number] [facility] 13:07:26 KIMBER paulino f [facility] 2021-12-07 Outpatient [facility] [id number] Univers 07:53:32 [facility] 2021-07-08 Outpatient SIRISHA [facility] [id number] [place] 16:50:53 [facility] 2021-05-24 Outpatient SIRISHA [facility] [id number] [place] 13:44:48 [facility] 2021-05-17 Outpatient SIRISHA [facility] [id number] [place] 13:12:21 [facility] 2022-10-06 2022-10-06 Outpatient SNEHA FERRELL [id number] [facility] 16:15:00 16:15:00 JOHN Seybol d 2022-07-14 2022-07-14 Outpatient JENNYSNEHA DE LEÓN [id number] [facility] 15:00:00 15:00:00 ANATOLY Seybol d 2022-07-10 2022-07-10 Outpatient SNEHA FERRELL [id number] [facility] 00:00:00 00:00:00 JOHN Seybol d 2022-07-05 2022-07-05 Outpatient LAB90 SNEHA VELIZ [id number] [facility] 16:45:00 16:45:00 Seybol d 2022-07-05 2022-07-05 Outpatient SNEHA FERRELL [id number] [facility] 15:45:00 15:45:00 JOHN Seybol d 2022-06-30 2022-06-30 Outpatient ARAMIS ABDI [facility] [id number] Univers 09:00:00 09:38:14 ARAMIS ALVAREZ [facility] 2022-06-26 2022-06-26 Outpatient TRINASNEHA MCWILLIAMS SNEHA [id number] S[facility]ha 00:00:00 00:00:00 JOHN Mosleyybol reg 2022-06-20 2022-06-20 Outpatient TRINASNEHA MCWILLIAMS SNEHA [id number] Sneha 00:00:00 00:00:00 JOHN Sorianool reg 2022-06-19 2022-06-19 Outpatient R BELKIS [facility] [id number] Univers 15:30:00 15:30:00 PARKER forbes [facility] 2022-06-16 2022-06-16 Outpatient R CHRISTAARAMIS Pires [facility] ANS [id number] Univers 07:54:26 23:59:00 ARAMIS ALVAREZ [facility] 2022-06-16 2022-06-16 [facility] ChristaAramis pires Oskar WALSH 1.2. [id number] Univers 07:54:26 23:59:00 Encounter Kimber Mendoza 350.1 .13.10 ity of [address]686 Rajeev as [id number] Medi mihaela [address] 2022-06-16 2022-06-16 Hospital NICO Mendoza [id number] Univers 07:01:00 11:40:00 Encounter Kimber GONZALEZY [id number] ity of HOSPITAL .2.7.2.686 Rajeev as [id number] Medi mihaela [address] 2022-06-16 2022-06-16 Surgery Anesthesiol NICO 1.2.840.114 [id number] Univers 08:00:00 09:30:00 ogy SAUD [id number] it y of HOSPITAL .2.7.2.686 Rajeev as [id number] Medi mihaela [address] 2022-06-16 2022-06-16 Orders Doctor ROMEO [id number] Univers 00:00:00 00:00:00 Only Unassigned, SAUD [id number] [facility] 2.7.2.686 Rajeev as [id number] [address] 2022-06-15 2022-06-15 Outpatient PREZAS, SNEHA VELIZ [id number] S[facility]ha 00:00:00 00:00:00 JOHN Seybol d 2022-06-13 2022-06-13 Outpatient PREZAS, SNEHA VELIZ [id number] S[facility]ha 00:00:00 00:00:00 JOHN Seybol d 2022-06-07 2022-06-07 Outpatient PREZAS, SNEHA VELIZ [id number] [facility] 15:30:00 15:30:00 JOHN Seybol d 2022-06-02 2022-06-02 Outpatient PREZAS, SNEHA VELIZ [id number] [facility] 00:00:00 00:00:00 JOHN Seybol d 2022-06-02 2022-06-02 Outpatient PREZAS, SNEHA VELIZ [id number] [facility] 00:00:00 00:00:00 JOHN Seybol d 2022-05-31 2022-05-31 Outpatient LAB90 SNEHA VELIZ [id number] [facility] 16:50:00 16:50:00 Seybol d 2022-05-31 2022-05-31 Outpatient PREZAS, SNEHA VELIZ [id number] [facility] 15:30:00 15:30:00 JOHN Seybol d 2022-05-26 2022-05-26 [facility] [id number] Univers 11:30:00 12:19:14 [facility] 2022-05-26 2022-05-26 [facility] [id number] Univers 11:30:00 12:19:[address] [facility] 350.1.13.10 it y of [place] 4.2.7.2.686 Rajeev as SHELLI?BLEA [id number] [address] OFFICE [facility] 2022-05-23 2022-05-23 Telephone [facility] 1.2.840.114 [id number] Univers 00:00:00 00:00:00 [facility] [id number] ity of [place] 4.2.7.2.686 Rajeev as SHELLI?BLEA [id number] Wi terrance BENITES [address] [facility] OFFICE [facility] 2022-05-23 2022-05-23 Telephone Abdirahman, [facility] 1.2.518.613 [id number] Univers 00:00:00 00:00:00 Palliative PRIMARY [id number] it[place] of Care [id number] [id number] Wi dicteresa [address] [place] [address] 2022-05-17 2022-05-17 Outpatient R AIME [facility] [id number] Univers 08:00:00 08:49:23 MARK ANTHONY forbes [facility] 2022-05-17 2022-05-17 Office Pcp, Palliative Care [facility] 1.2.8 40.114 [id number] Univers 08:00:00 08:49:23 Visit Mark Anthony Salomon PRIMARY [id number] [place] of [place] 4[place]2.7.2.[place] [id number] Wi terrance [address] 2022-05-07 2022-05-07 Refill [facility] 1.2.840.114 [id number] Univers 00:00:00 00:00:00 Cris ALEXANDER 350.1.13.10 ity of [place] 4.2.7.2.[place] PROF[place] [id number] Wi terrance LINDSAY 044 [facility] 2022-04-04 2022-04-04 Telephone Reji [facility] 1.2.840.114 [id number] Univers 00:00:00 00:00:00 Kimber ALEXANDER 350.1.13.10 ity of [place] 4.[place] [id number] [facility] 231 [facility] 2022-03-31 2022-03-31 Outpatient R REJI [facility] [id number] Univers 13:00:00 14:12:14 KIMBER forbes [facility] 2022-03-31 2022-03-31 Office Reji [facility] 1.2.840.114 [id number] Univers 13:00:00 14:12:14 Visit Kimber ALEXANDER [id number] ity [facility] 4.2.7.2.686 [place] [id number] [address] 2022-03-31 2022-03-31 Outpatient R REJI [facility] [id number] Univers 13:00:00 13:00:00 KIMBER forbes [facility] 2022-03-31 2022-03-31 [facility] [id number] Univers 13:00:00 13:00:00 KIMBER forbes [facility] 2022-03-29 2022-03-29 Telephone [facility] 1.2.840.114 [id number] Univers 00:00:00 00:00:00 Kimber ALEXANDER 350.1.13.10 ity of [place] 4.2.[place] [id number] [address] 2022-03-21 2022-03-21 Telephone [facility] 1.2.460.921 [id number] Univers 00:00:00 00:00:00 Palliative MULTISPEC 350.1.13.10 ity of Care I[place] 4.2.7.2.686 [place] CENTER [id number] [facility] AND JASMIN [address] [place] [address] [facility] 2022-03-20 2022-03-20 Telephone Reji [facility] 1.2.840.114 [id number] Univers 00:00:00 00:00:00 Kimber ALEXANDER 350.1.13.10 ity of [facility] 4.2.7.2.[place] [phone] Wi dical NAL 231 [facility] 2022-03-14 2022-03-14 Patient Reji [facility] 1.2.840.114 [id number] Univers 00:00:00 00:00:00 Secure Msg Kimber ALEXANDER 350.1.13.10 it[place] of [place] 4.2.7.2.[place] [id number] Me dical NAL 044 [facility] 2022-03-10 2022-03-10 [facility] [id number] Univers 16:01:51 23:59:00 KIMBER ity of [facility] 2022-03-10 2022-03-10 [facility] 1.2.840.114 [id number] Univers 15:30:00 23:59:00 Encounter Kimber ALEXANDER 350.1.13.10 [place] of [place] 4.2.7.2.686 [place] [id number] [facility] [address] 2022-03-10 2022-03-10 Tanbark Peeler Gerald, [facility] Main [facility] 1.2.8 40.114 [id number] Univers 16:15:00 16:30:00 Visit Kimber Mendoza 350.1. 13.10 it[place] of [place] 4.2.7.2.[place] [id number] Wi dical NAL 353 [facility] 2022-03-10 2022-03-10 Office [facility] 1.2.840.114 [id number] Univers 13:00:00 14:27:33 Visit Kimber ALEXANDER 350.1.13.10 ity of [place] 4.2.7.2.686 [place] [facility] [phone] Wi dicteresa NAL 231 [facility] 2022-03-10 2022-03-10 [facility] [id number] Univers 13:00:00 14:27:33 KIMBER forbes [facility] 2022-03-10 2022-03-10 Orders Doctor AGUEDA 1.2.840.114 [id number] Univers 00:00:00 00:00:00 Only Unassigned, SAUD 350.1.13.[address] [facility] 4.2.7.2.686 Rajeev as [phone] [facility] [address] 2022-03-09 2022-03-09 Telephone [facility] 1.2.840.114 [id number] Univers 00:00:00 00:00:00 Kimber ALEXANDER 350.1.13.10 [place] of [place] 4.2.7.2.[place] [id number] Wi dical NAL 044 [facility] 2022-03-02 2022-03-02 Orders Doctor AGUEDA 1.2.840.114 [id number] Univers 00:00:00 00:00:00 Only Unassigned, SAUD 350.1.13.[address] [facility] 4.2.7.2.686 Rajeev as [id number] [facility] [address] 2022-03-01 2022-03-01 Patient Evgeny [facility] 1.2.840.114 [id number] Univers 00:00:00 00:00:00 Outreach Felicia ALEXANDER 350.1.13.10 [place] of [place] 4.2.7.2.686 [place] PROFESS[place] [phone] Wi dical NAL [address] [place] [facility] 2022-03-01 2022-03-01 Telephone Reji [facility] 1.2.840.114 [id number] Univers 00:00:00 00:00:00 Kimber ALEXANDER 350.1.13.10 ity [facility] [place] [phone] Wi dical NAL 044 [facility] 2022-02-28 2022-02-28 Transition MISHA Vega 1.2.840.114 [id number] Univers 00:00:00 00:00:00 of Care Jojo Mateo HOBBS 350.1.13.10 i ty of [place].2.[place] [phone] [facility] [address] 2022-02-20 2022-02-26 Inpatient X ZACHARY [facility] CHERYL [id number] Univers 20:31:00 15:22:00 NENITA itcal of [facility] 2022-02-20 2022-02-26 Hospital Sherrie Castellano [facility] 1 .2.840.114 [id number] Univers 20:31:00 15:22:00 Encounter Nenita Harry 350.1.13.10 ity of [place] 4.2.7.2.686 [facility] [id number] [facility] [address] 2022-02-21 2022-02-21 Outpatient R REJI [facility] [id number] [id number] Univers 16:20:00 16:20:00 KIMBER rojasy [facility] 2022-02-21 2022-02-21 Outpatient R CRIS WARNER [facility] [id number] Univers 16:00:00 16:00:00 CRIS WARNER ity [facility] 2022-02-17 2022-02-17 Telephone Mendoza, [facility] 1.2.840.114 [id number] Univers 00:00:00 00:00:00 Kimber BERNARDOTON 350.1.13.10 ity of [place] [phone] [facility] 044 [facility] 2022-02-16 2022-02-16 Telemedici [facility] 1.2.840.114 [id number] [facility] 16:20:00 17:00:00 ne Visit Kimber ALEXANDER 350.1.13.10 ity of [place] 4.2.7.2.[place] [phone] [facility] 231 [facility] 2022-02-16 2022-02-16 Outpatient R REJI [facility] 1040 [id number] Univers 16:20:00 16:20:00 KIMBER forbes [facility] 2022-02-15 2022-02-15 [facility] 1.2.840.114 [id number] Univers 00:00:00 00:00:00 Kimber BERNARDOTON 350.1.13.10 ity of [place] 4.[place] [phone] [facility] 2022-02-10 2022-02-10 Refill [facility] 1.2.840.114 [id number] Univers 00:00:00 00:00:00 Cris BERNARDOTON 350.1.13.10 ity of [place] 4.[place] [id number] [facility] 044 [facility] 2022-01-24 2022-01-24 Refill Mendoza, [facility] 1.2.840.114 [id number] Univers 00:00:00 00:00:00 Kimber A TOVATON 350.1.13.10 ity of [place] 4.2.7.2.[place] [phone] [facility] 231 [facility] 2022-01-06 2022-01-09 [facility] [id number] [id number] Univers 16:20:00 08:51:46 KIMBER ity [facility] 2022-01-06 2022-01-09 [facility]medici [facility] 1.2.840.114 [id number] Univers 16:20:00 08:51:46 ne Visit Kimber ALEXANDER 350.1.13.10 ity of [place] 4.[place] [phone] [address] 2022-01-06 2022-01-06 [facility] 1039 [id number] Univers 16:20:00 16:20:00 KIMBER ity [facility] 2021-12-30 2021-12-30 Telephone [facility] 1.2.840.114 [id number] Univers 00:00:00 00:00:[address] [facility] 350.1.13.10 it y of [place] 4.2.[place].2.[place] C[place] - [phone] Med ical [facility] [address] 2021-12-28 2021-12-28 Refill [facility] 1.2.840.114 939 [id number] Univers 00:00:00 00:00:00 Kimber BERNARDOTON 350.1.13.10 ity of [facility] 4.2.7.2.[place] [id number] [address] 2021-12-23 2021-12-23 Emergency [facility] [id number] Univers 19:08:00 23:45:00 [facility] 2021-12-23 2021-12-23 Emergency [facility] 1.2.037.271 [id number] [id number] Univers 19:08:00 23:45:00 Kimberlyn ALEXANDER 350.1.13.10 ity [facility] 4.2.7.2.[place] [phone] [facility] [address] 2021-12-23 2021-12-23 Emergency X [facility] ERT [id number] Univers 19:08:00 23:45:00 [facility] 2021-12-23 2021-12-23 Telephone [facility] 1.2.840.114 9 [id number] Univers 00:00:00 00:00:00 Kimber ALEXANDER 350.1.13.10 ity [facility] 4.2.[place].2.[place] [phone] [address] 2021-12-22 2021-12-22 Outpatient Eri REYES [facility] [id number] Univers 16:00:00 17:20:39 [facility] 2021-12-22 2021-12-22 Office [facility] 1.2.840.114 [id number] Univers 16:00:00 17:20:39 Visit Ellen ALEXANDER 350.1.13.10 i ty [facility] 4.2.7.2.[place] [phone] [address] 2021-12-22 2021-12-22 Outpatient [facility] [id number] Univers 16:00:00 17:20:39 ELLEN [facility] 2021-12-22 2021-12-22 Outpatient [facility] [id number] Univers 16:00:00 16:00:[facility] 2021-12-22 2021-12-22 Nurse AGUEDA [place] 1.2.655.308 [id number] [id number] Univers 00:00:00 00:00:00 Triage Phani SAUD 350.1.13.10 it y of [facility] 4.2.7.2.686 Rajeev as [phone] [address] 2021-12-22 2021-12-22 Telephone [facility] 1.2.840.114 9 [id number] Univers 00:00:00 00:00:00 Kimber A [place] 350.1.13.10 ity of [place] 4.2.7.2.[place] [phone] Wi dic[address] 2021-12-22 2021-12-22 Telephone [facility] 1.2.840.114 9 [id number] Univers 00:00:00 00:00:00 Kimber A [place] 350.1.13.10 ity of [place] 4.2.7.2.[place] [phone] Wi dic[address] 2021-12-16 2021-12-16 [facility] 1.2.840.1 [id number] Univers 06:16:21 23:59:00 Encounter Natalie Mcdonald 11888.1.1 ity of [place].412.2.7 [place] .3.430767 MD Carrera [facility] 2021-12-16 2021-12-16 Anesthesia Natalie Mcdonald 1.2.840.1 1010 [id number] [id number] Univers 09:42:00 11:13:00 Event Kassidy Wheeler 35284.1.1 ity of 3.412.2.7 [place] .3.468024 MD Carrera [facility] 2021-12-16 2021-12-16 Travel 1.2.840.1 1.2.860.985 4286 [id number] Univers 00:00:00 00:00:00 18245.1.1 350.1.13.41 ity of 3.412.2.7 2.2.7.3.698 [place] .3.783434 08Joan8 MD Carrera [facility] 2021-12-16 2021-12-16 Telephone Christa [facility] 1.2.840.114 [id number] [id number] Univers 00:00:00 00:00:00 [facility] 350.1.13.10 ity of [place] 4.2.7.2.686 Rajeev as SHELLI?BLEA [phone] Wi dical KNEY [address] [facility] OFFICE BUILDING 2021-12-16 2021-12-16 Telephone [facility] 1.2.840.114 9 [id number] Univers 00:00:00 00:00:00 Kimber ALEXANDER 350.1.13.10 ity of [place] 4.2.7.2.686 [place] MIROSLAVA [phone] Wi dical NAL [address] BUILDING 2021-12-15 2021-12-15 Anesthesia Vamsi, 1.2.840.1 [id number] Univers 23:59:59 23:59:59 Event Yolis Ignacio 37754.1.1 it y of 3.412.2.7 [place] .3.378908 MD Jackson8 [facility] 2021-12-15 2021-12-15 POEM 1.2.840.1 [id number] Univers 13:30:00 14:00:00 Appointmalachi 46549.1.1 i ty of ts 3.412.2.7 [place] .3.103288 MD Jackson8 [facility] 2021-12-15 2021-12-15 Nurse Hammad 1.2.840.1 [id number] Univers 00:00:00 00:00:00 Triage Felicia Silver 85569.1.1 ity of 3.412.2.7 [place] .3.518828 MD Jackson8 [facility] 2021-12-14 2021-12-14 Clinical Jenny Aiken 1.2.840.1 [id number] Univers 13:30:00 15:23:57 Support Briana 04923.1.1 it y of 3.412.2.7 [place] .3.121086 MD Jackson8 [facility] 2021-12-14 2021-12-14 Travel 1.2.840.1 1.2.440.191 0562 [id number] Univers 00:00:00 00:00:00 46369.1.1 350.1.13.41 ity of 3.412.2.7 2.2.7.3.698 [place] .3.283852 084.8 .8 [facility] 2021-12-13 2021-12-13 Outpatient R [facility] [id number] Univers 15:45:00 16:30:54 LIBBY [facility] 2021-12-13 2021-12-13 Office [facility] 1.2.536.584 0523 0151 Univers 15:45:00 16:30:54 Visit Libby ALEXANDER 350.1.13.10 i ty [facility] 4.2.7.2.[place] [phone] Wi dical NAL 419 [facility] 2021-12-13 2021-12-13 [facility] [id number] Univers 15:45:00 15:45:00 LIBBY [facility] 2021-12-13 2021-12-13 Travel 1.2.840.1 1.2.798.330 [id number] [id number] Univers 00:00:00 00:00:00 88794.1.1 350.1.13.41 ity of 3.412.2.7 2.2.7.3.698 [place] .3.658823 084.8 MD Jackson8 [facility] 2021-12-13 2021-12-13 Kaila [facility]PRES[facility] 1.2.840.114 [id number] 093 Univers 00:00:00 00:00:00 Cris ALEXANDER 350.1.13.10 ity of [facility] 4.2.7.2.[place] [phone] Wi dical NAL 044 [facility] 2021-12-08 2021-12-09 Outpatient [facility] [id number] [id number] Univers 16:00:00 16:09:40 KIMBER ity [facility] 2021-12-08 2021-12-09 Telemedici [facility]PRES[facility] 1.2.840.114 [id number] Univers 16:00:00 16:09:40 ne Visit Kimber Silver CATHERINE 350.1.13.10 ity of [place] 4.2.7.2.[place] [phone] [address] 2021-12-08 2021-12-08 Outpatient [facility] [id number] [id number] Univers 16:00:00 16:00:00 KIMBER [facility] 2021-12-08 2021-12-08 Outpatient R [facility] [id number] [id number] Univers 16:00:00 16:00:00 KIMBER [facility] 2021-12-07 2021-12-07 Patient [facility] 1.2.840.114 [id number] Univers 00:00:00 00:00:00 Outreach Felicia ALEXANDER 350.1.13.10 ity of [facility] 4.2.7.2.[place] [phone] [address] 2021-12-02 2021-12-02 Case [facility]PRES[facility] 1.2.840.114 [id number] Univers 00:00:00 00:00:00 Management Kimber ALEXANDER 350.1.13.10 ity of [place] 4.2.7.2.[place] [phone] [address] 2021-12-01 2021-12-01 Telephone Timmy [facility] 1.2.840.114 [id number] [id number] Univers 00:00:00 00:00:00 Cris ALEXANDER 350.1.13.10 it[place] of [place] 4.2.7.2.[place] [id number] [address] 2021-11-29 2021-11-29 Telephone Theo 2.840.1 [id number] [id number] Univers 00:00:00 00:00:00 Litty 90246.1.1 ity of 3.412.2.7 [place] .3.190474 .8 [facility] 2021-11-28 2021-11-28 Anesthesia Laron, 1.2.840.1 [id number] Univers 23:59:59 23:59:59 Event Norris A 94586.1.1 ity of 3.412.2.7 [place] .3.555047 .8 [facility] 2021-11-28 2021-11-28 POEM 1.2.840.1 [id number] Univers 14:00:00 14:30:00 Appointmen 45027.1.1 i ty of ts 3.412.2.7 [place] .3.239822 MD Jackson8 [facility] 2021-11-28 2021-11-28 [facility] 1.2.840.114 [id number] [id number] Univers 00:00:00 00:00:00 Secure Msg Kimber ALEXANDER 350.1.13.10 ity of [place] 4.2.7.2.686 [place] [phone] Wi dical NAL 044 [facility] 2021-11-28 2021-11-28 [facility] 1.2.840.114 [id number] [id number] Univers 00:00:00 00:00:00 Secure Msg Kimber ALEXANDER 350.1.13.10 ity of [place] 4.2.7.2.[place] [phone] Wi dical NAL 044 [facility] 2021-11-28 2021-11-28 Orders Doctor AGUEDA 1.2.840.114 [id number] Univers 00:00:00 00:00:00 Only Unassigned, SAUD 350.1.13.[address] [facility] 4.2.7.2.686 Rajeev as [phone] [facility] [address] 2021-11-25 2021-11-25 Office [facility] 1.2.840.114 [id number] Univers 10:00:00 10:30:00 Visit Curtis Mace MULTISPEC 350.1.13.10 ity of [place].2.7.2.[place] C[place] [phone] [facility] AND [address] [facility] 2021-11-25 2021-11-25 Outpatient R MARJORIE [facility] [id number] Univers 10:00:00 10:00:00 CURTIS ity of [facility] 2021-11-23 2021-11-23 Telephone [facility] 1.2.840.114 9 [id number] [facility] 00:00:00 00:00:00 Kimber ALEXANDER 350.1.13.10 ity of [place] 4.2.7.2.[place] [phone] [facility] 231 [facility] 2021-11-21 2021-11-21 Outpatient R NELY MOORE [facility] [id number] Univers 07:01:30 23:59:00 ity of [facility] 2021-11-21 2021-11-21 [facility] Nely Moore [facility] 1.2.840.114 [id number] Univers 07:01:30 23:59:00 Encounter Maci [facility] 350.1. 13.10 ity of CL[place] 4.2.7.2.[place] [id number] [facility] [address] 2021-11-21 2021-11-21 Outpatient R NELY MOORE [facility] [id number] Univers 07:01:30 23:59:00 ity of [facility] 2021-11-21 2021-11-21 Outpatient R NELY MOORE [facility] [id number] Univers 00:00:00 00:00:00 ity of [facility] 2021-11-21 2021-11-21 Telephone [facility] 1.2.840.114 [id number] Univers 00:00:00 00:00:00 Seema ALEXANDER 350.1.13.10 ity of [facility] 4.2.7.2.[place] [phone] [facility] 188 [facility] 2021-11-21 2021-11-21 Telephone [facility] 1.2.840.114 [id number] Univers 00:00:00 00:00:00 Kimber ALEXANDER 350.1.13.10 ity of [place] 4.2.7.2.686 [place] [id number] [facility] 044 [facility] 2021-11-21 2021-11-21 hSerrie Queen [facility] 1.2.840.114 [id number] Univers 00:00:00 00:00:00 CATHERINE 350.1.13.10 i ty of [place] 4.2.7.2.686 [place] [id number] [facility] 419 [facility] 2021-11-18 2021-11-18 Outpatient R CRIS WARNER [facility] [id number] Univers 15:00:00 15:00:00 CRIS WARNER [facility] 2021-11-16 2021-11-16 Orders Maikol 1.2.840.1 [id number] Univers 00:00:00 00:00:00 Only Marni Busby 76195.1.1 i ty of 3.412.2.7 [place] .3.104402 .8 [facility] 2021-11-15 2021-11-15 Outpatient R [facility] [id number] Univers 15:30:00 16:42:13 [facility] 2021-11-15 2021-11-15 Office [facility] 1.2.939.087 [id number] [id number] Univers 15:30:00 16:42:13 Visit Libby ALEXANDER 350.1.13.10 i ty of [place] 4.2.7.2.[place] [phone] [facility] 419 [facility] 2021-11-15 2021-11-15 Outpatient R [facility] [id number] Univers 15:30:00 15:30:00 [facility] 2021-11-14 2021-11-14 Telephone Maikol 1.2.840.1 [id number] [id number] Univers 00:00:00 00:00:00 Marni Busby 94247.1.1 i ty of 3.412.2.7 [place] .3.064056 .8 [facility] 2021-11-14 2021-11-14 [facility] 1.2.840.114 928 [id number] Univers 00:00:00 00:00:00 Cris ALEXANDER 350.1.13.10 ity of [facility] 4.2.7.2.[place] [phone] Me dical NAL 231 [facility] 2021-11-14 2021-11-14 Patient [facility] 1.2.840.114 [id number] Univers 00:00:00 00:00:00 Secure Msg Kimber BERNARDOLANNY 350.1.13.10 ity of [facility] 4.2.7.2.[place] [phone] Wi dical NAL 044 [facility] 2021-11-11 2021-11-11 Ancillary Maikol, 1.2.840.1 [id number] [id number] Univers 09:15:00 11:00:00 Procedure Marni Busby 91787.1.1 ity of 3.412.2.7 [place] .3.388276 MD Jackson8 [facility] 2021-11-11 2021-11-11 Outpatient [facility]IKOL [facility] [id number] 357 09:20:31 09:20:31 MARNI Driver beba 2021-11-11 2021-11-11 Telephone Maikol, 1.2.840.1 [id number] [id number] Univers 00:00:00 00:00:00 Marni Busby 44133.1.1 i ty of 3.412.2.7 [place] .3.105837 MD Jackson8 [facility] 2021-11-11 2021-11-11 Orders Florencio 1.2.840.1 [id number] Univers 00:00:00 00:00:00 Only Nicol S 78773.1.1 ity of 3.412.2.7 [place] .3.320609 .8 [facility] 2021-11-11 2021-11-11 Travel 1.2.840.1 1.2.078.849 0921 [id number] Univers 00:00:00 00:00:00 78510.1.1 350.1.13.41 ity of 3.412.2.7 2.[place].7.3.698 [place] .3.009535 084.8 .8 [facility] 2021-11-11 2021-11-11 Telephone [facility] 1.2.840.114 9 [id number] Univers 00:00:00 00:00:00 Kimber ALEXANDER 350.1.13.10 ity of [facility] 4.2.7.2.[place] [phone] Wi dical NAL 231 [facility] 2021-11-11 2021-11-11 Telephone [facility] 1.2.840.114 92 [id number] Univers 00:00:00 00:00:00 Libby ALEXANDER 350.1.13.10 i ty of [place] 4.2.7.2.[place] [phone] Wi dical NAL 419 [facility] 2021-11-11 2021-11-11 Telephone [facility] 1.2.840.114 9 [id number] Univers 00:00:00 00:00:00 Kimber ALEXANDER 350.1.13.10 ity of [place] 4.2.7.2.[place] 367.9981007 Wi dical NAL 044 [facility] 2021-11-11 2021-11-11 Orders Doctor AGUEDA 1.2.840.114 [id number] Univers 00:00:00 00:00:00 Only Unassigned, SAUD 350.1.13.[address] [facility] 4.2.7.2.686 Rajeev as [phone] [facility] [address] 2021-11-09 2021-11-09 Telephone [facility] 1.2.840.114 [id number] Univers 00:00:00 00:00:00 Libby Dominguez CATHERINE 350.1.13.10 i ty of [facility] 4.2.7.2.[place] [phone] Wi dical NAL 419 [facility] 2021-11-08 2021-11-08 Outpatient R [facility] [id number] Univers 16:15:00 17:46:17 LIBBY [facility] 2021-11-08 2021-11-08 Office [facility] 1.2.629.675 [id number] [id number] Univers 16:15:00 17:46:17 Visit Libby Dominguez CATHERINE 350.1.13.10 i ty of [place] 4.2.7.2.[place] [id number] [facility] 419 [facility] 2021-11-08 2021-11-08 Outpatient R [facility] [id number] Univers 16:15:00 17:46:17 LIBBY [facility] 2021-11-08 2021-11-08 Outpatient R [facility] [id number] Univers 16:15:00 16:15:00 [facility] 2021-11-08 2021-11-08 Patient [facility] 1.2.840.114 [id number] Univers 00:00:00 00:00:00 Secure Msg Kimber ALEXANDER 350.1.13.10 ity of [place] 4.2.7.2.[place] 727.6090880 [facility]44 [facility] 2021-11-07 2021-11-07 Patient [facility]PRES[facility] 1.2.840.114 [id number] Univers 00:00:00 00:00:00 Outreach Felicia ALEXANDER 350.1.13.10 ity of [facility] 4.2.7.2.[place] [phone] Wi dical NAL 231 [facility] 2021-11-04 2021-11-04 Telemedici [facility]zaPRESBYTER[facility] 1.2.840.114 [id number] Univers 16:00:00 17:00:00 ne Visit Kimber ALEXANDER 350.1.13.10 ity of [facility] 4.2.7.2.[place] [phone] Wi terrance LINDSAY [address] BUILDING 2021-11-04 2021-11-04 Outpatient [facility] [id number] Univers 16:00:00 16:00:00 [facility] 2021-11-04 2021-11-04 [facility] 1038 [id number] Univers 16:00:00 16:00:00 [facility] 2021-11-04 2021-11-04 [facility] 1038 [id number] Univers 16:00:00 16:00:00 [facility] 2021-11-03 2021-11-03 Telephone Maikol, 1.2.840.1 [id number] [id number] Univers 00:00:00 00:00:00 Nakeshia U 45012.1.1 i ty of 3.412.2.7 [place] .3.084223 .8 [facility] 2021-11-03 2021-11-03 Telephone Theo 1.2.840.1 [id number] [id number] Univers 00:00:00 00:00:00 Litty 39292.1.1 ity of 3.412.2.7 [place] .3.566767 .8 [facility] 2021-11-02 2021-11-02 Telephone [facility] 1.2.840.114 [id number] Univers 00:00:00 00:00:00 [facility] 350.1.13.10 ity of [facility] 4.2.7.2.686 Rajeev as SHELLI?BLEA [phone] Wi terrance BENITES [address] MEDICAL OFFICE [facility] 2021-11-02 2021-11-02 Telephone [facility] 1.2.840.114 [id number] [id number] Univers 00:00:00 00:00:00 Cris [facility] 350.1.13.10 ity of [facility] 4.2.7.2.[place] [phone] Me dical NAL 044 [facility] 2021-11-01 2021-11-01 Outpatient ARAMIS ABDI [facility] [id number] Univers 16:12:12 23:59:00 ARAMIS ALVAREZ [facility] 2021-11-01 2021-11-01 [facility], Ang - Db [facility] 1.2.840.1 14 [id number] Univers 16:30:00 16:45:00 Visit Aramis Alvarez [facility] 350.1.13. 10 ity of [place] 4.2.7.2.686 Rajeev as SHELLI?BLEA [phone] Wi terrance BENITES [address] [facility] OFFICE [facility] 2021-11-01 2021-11-01 Outpatient ARAMIS ABDI [facility] [id number] Univers 15:00:00 16:03:20 ARAMIS ALVAREZ [facility] 2021-11-01 2021-11-01 Office [facility] 1.2.840.114 [id number] Univers 15:00:00 16:03:20 Visit [facility] 350.1.13.10 ity of [place] 4.2.7.2.686 Rajeev as SHELLI?BLEA [phone] Wi terrance [place]EN[place] [address] [facility] OFFICE [facility] 2021-11-01 2021-11-01 Outpatient ARAMIS ABDI [facility] [id number] Univers 15:00:00 16:03:20 ARAMIS ALVAREZ [facility] 2021-10-31 2021-10-31 Patient Timmy [facility] 1.2.840.114 [id number] Univers 00:00:00 00:00:00 Secure Msg Ogechukwu [place] 350.1.13.10 ity of [place] [phone] Me dical NAL [address] [facility] 2021-10-28 2021-10-28 Orders Miles, 1.2.840.1 [id number] Univers 00:00:00 00:00:00 [place] [address].1.1 i ty of 3.412.2.7 [place] .[id number] MD .8 [facility] 2021-10-26 2021-10-26 Office [facility] 1.2.840.114 [id number] Univers 13:00:00 14:00:00 Visit Miguel Ángel YAIR 350.1.13.10 i ty of [facility] [place].2.[place] [phone] [address] 2021-10-26 2021-10-26 [facility] [id number] Univers 13:00:00 13:00:00 MIGUEL ÁNGEL itcal [facility] 2021-10-26 2021-10-26 [facility] [id number] Univers 13:00:00 13:00:00 [facility] 2021-10-26 2021-10-26 [facility] [id number] Univers 13:00:00 13:00:00 [facility] 2021-10-26 2021-10-26 [facility] 1.2.840.114 [id number] Univers 00:00:00 00:00:00 Secure Msg Ogechukwu [place] 350.1.13.10 ity of [place] 4[place] [phone] Wi dical NAL [address] [place] [address] 2021-10-26 2021-10-26 [facility] 1.2.840.114 [id number] Univers 00:00:00 00:00:00 Ogechukwu [place] 350.1.13.10 it[facility] [place]2.[place].2.[place] [phone] Wi dical NAL 044 [facility] 2021-10-26 2021-10-26 [facility] 1.2.840.114 [id number] Univers 00:00:00 00:00:00 Secure Msg Ogechukwu [place] 350.1.13.10 ity [facility] 4[place] [phone] Wi dical NAL [address] [place] [address] 2021-10-26 2021-10-26 [facility] 1.2.840.114 [id number] Univers 00:00:00 00:00:00 Cris ALEXANDER 350.1.13.10 ity of [place] [phone] Wi dical NAL 044 [facility] 2021-10-25 2021-10-25 Outpatient R ARAMIS ALVAREZ [facility] [id number] Univers 15:40:00 15:40:00 [facility] 2021-10-25 Telephone Theo, 1.2.840.1 [id number] 1091 [id number] Univers 00:00:00 00:00:00 Litty 66070.1.1 ity of 3.412.2.7 [place] .3.491228 MD Jackson8 [facility] 2021-10-24 2021-10-24 Telephone Nory Shanesusan 1.2.840.1 [id number] Univers 00:00:00 00:00:00 51491.1.1 ity of 3.412.2.7 [place] .3.634808 .8 [facility] 2021-10-22 2021-10-22 Telephone Reji [facility] 1.2.840.114 9 [id number] Univers 00:00:00 00:00:00 Kimber ALEXANDER 350.1.13.10 ity [facility] [place] [phone] Wi dical NAL 231 [facility] 2021-10-21 2021-10-21 Outpatient R CRIS WARNER [facility] [id number] Univers 15:55:47 23:59:00 CRIS WARNER ity [facility] 2021-10-21 2021-10-21 [facility] 1.2.664.974 0705 6803 Univers 15:45:00 23:59:00 [facility] Cris ALEXANDER 350.1.13.10 it[place] [phone] [facility] [address] 2021-10-21 2021-10-21 Outpatient R CRIS WARNER [facility] [id number] Univers 13:30:00 15:24:01 CRIS WARNER ity of [facility] 2021-10-21 2021-10-21 [facility] 1.2.840.114 [id number] [id number] Univers 13:30:00 15:24:01 Visit Cris ALEXANDER 350.1.13.10 it[place] of [place] [phone] Wi dic[address] 2021-10-19 2021-10-19 Telephone Timmy [facility] 1.2.840.114 921 91534 Univers 00:00:00 00:00:00 Cris ALEXANDER 350.1.13.10 ity of [facility] [place] [phone] [address] 2021-10-19 2021-10-19 [facility] 1.2.840.114 921 33726 Univers 00:00:00 00:00:00 Cris ALEXANDER 350.1.13.10 it[place] of [place] [phone] [address] 2021-10-18 2021-10-18 Telephone Lavon Cueto 1.2.840.1 [id number] Univers 00:00:00 00:00:00 85110.1.1 ity of 3.412.2.7 [place] .3.067134 MD Jackson8 [facility] 2021-10-18 2021-10-18 [facility] 1.2.840.114 [id number] 899 Univers 00:00:00 00:00:00 Cris ALEXANDER 350.1.13.10 it[place] of [place] [phone] Wi dical NAL 044 [facility] 2021-10-13 2021-10-13 Telephone [facility] 1.2.840.114 920 34784 Univers 00:00:00 00:00:00 Ogechukwu [place] 350.1.13.10 ity of [facility] [place] [phone] Wi dical NAL 231 [facility] 2021-10-13 2021-10-13 Telephone [facility] 1.2.840.114 920 [id number] Univers 00:00:00 00:00:00 Ogechukwu [place] 350.1.13.10 ity of [facility] 4.2.[place] [phone] Wi dical NAL 044 [facility] 2021-10-12 2021-10-12 Telephone [facility] 1.2.292.751 6391 8036 Univers 00:00:00 00:00:00 Miguel Ángel MAZARIEGOS 350.1.13.10 i ty of [facility] 4.2.7.2.686 [place] [phone] [facility] [address] 2021-10-11 2021-10-11 Patient Timmy [facility] 1.2.840.114 [id number] [id number] Univers 00:00:00 00:00:00 Secure Msg Ogechukwu [place] 350.1.13.10 ity of [place] 4[place] [phone] Wi dical NAL 044 [facility] 2021-10-11 2021-10-11 [facility] 1.2.860.466 8658 4100 Univers 00:00:00 00:00:00 [facility] 350.1.13.10 it y of [place].2.[place] C[place] - [phone] [facility] [address] 2021-10-11 2021-10-11 Patient Timmy [facility] 1.2.840.114 15293 206 Univers 00:00:00 00:00:00 Secure Msg Ogechukwu [place] 350.1.13.10 ity of [place] 4[place] [phone] Wi dical NAL Monika [facility] 2021-10-10 2021-10-10 Patient Timmy [facility] 1.2.840.114 [id number] 020 Univers 00:00:00 00:00:00 Secure Msg Ogechukwu [place] 350.1.13.10 ity of [place] 4[place] [phone] Wi dical NAL 044 [facility] 2021-10-10 2021-10-10 Patient Timmy [facility] 1.2.840.114 11034 020 Univers 00:00:00 00:00:00 Secure Msg Ogechukwu [place] 350.1.13.10 ity of [place] 4[place] [phone] Wi dical NAL [address] [place] [address] 2021-10-10 2021-10-10 Patient Timmy, [facility] 1.2.840.114 [id number] 020 Univers 00:00:00 00:00:00 Secure Msg Ogechukwu [place] 350.1.13.10 ity of [place] [phone] Wi dical NAL [address] [place] [address] 2021-10-10 2021-10-10 Telephone Timmy [facility] 1.2.840.114 919 90555 Univers 00:00:00 00:00:00 Ogechukwu [place] 350.1.13.10 ity of [place] [phone] Wi dical NAL [address] [place] [address] 2021-10-10 2021-10-10 Telephone Timmy [facility] 1.2.840.114 919 41652 Univers 00:00:00 00:00:00 Ogechukwu [place] 350.1.13.10 ity of [place] 4[place] [phone] Wi dical NAL [address] [place] [address] 2021-10-07 2021-10-07 Outpatient R PIERRE WARNERRachelDelvin [facility] [id number] Univers 15:00:00 17:04:53 CRIS WARNER ity [facility] 2021-10-07 2021-10-07 Outpatient R CRIS WARNER [facility] [id number] Univers 15:00:00 17:04:53 CRIS WARNER ity [facility] 2021-10-07 2021-10-07 Office Timmy [facility] 1.2.840.114 [id number] Univers 15:00:00 17:04:53 Visit Cris ALEXANDER 350.1.13.10 ity of [place] 4[place] [phone] [address] 2021-10-07 2021-10-07 Outpatient R PIERRE WARNERIVAN [facility] [id number] Univers 15:00:00 17:04:53 CRIS WARNER ity [facility] 2021-10-07 2021-10-07 Orders Doctor AGUEDA 1.2.840.114 [id number] Univers 00:00:00 00:00:00 Only Unassigned, SAUD 350.1.13.[address] [facility] 4.2.7.2.686 Rajeev as [phone] [address] 2021-10-04 2021-10-04 Tanbark Peeler Gerald, Mary [facility] Main [facility] 1.2.8 40.114 [id number] Univers 12:30:00 12:45:00 Visit Pierre Warnerracheldelvin BERNARDOLANNY 350.1.13.1 0 ity of [facility] 4.2.7.2.[place] [phone] [facility] 353 [facility] 2021-10-04 2021-10-04 Outpatient R TIMMYBREEZYSARITA [facility] [id number] Univers 11:00:00 12:11:47 TIMMYPIERRE RAMIREZRachelDelvin ity [facility] 2021-10-04 2021-10-04 Outpatient R CRIS WARNER [facility] [id number] Univers 11:00:00 12:11:47 CRIS WARNER ity of [facility] 2021-10-04 2021-10-04 Office Timmy [facility] 1.2.840.114 [id number] Univers 11:00:00 12:11:47 Visit Cris ALEXANDER 350.1.13.10 ity of [place] 4.2.7.2.686 Lobo dominguez PROFESSIO [phone] Wi dical NAL [address] [place] [address] 2021-09-26 2021-09-26 Outpatient BAO PERSAUD MDA [facility] [id number] 09:13:12 10:10:42 TIGIST yoder 2021-09-26 2021-09-26 Consult Cathy, 1.2.840.1 [id number] 1089 [id number] Univers 09:00:00 10:10:42 Tigist 59076.1.1 ity of 3.412.2.7 [place] .3.264027 MD Jackson8 [facility] 2021-09-26 2021-09-26 Travel 1.2.840.1 1.2.485.050 6555 [id number] Univers 00:00:00 00:00:00 94463.1.1 350.1.13.41 ity of 3.412.2.7 2.2.7.3.698 [place] .3.865188 084.8 MD Jackson8 [facility] 2021-09-21 2021-09-21 Documentat Amber, 1.2.840.1 [id number] 1 [id number] Univers 00:00:00 00:00:00 ion Sesar Chopra 39262.1.1 i ty of 3.412.2.7 [place] .3.221012 MD [facility]rera [facility] 2021-09-20 2021-09-20 Orders Miles, 1.2.840.1 [id number] Univers 00:00:00 00:00:00 Only Nakeshia U 00998.1.1 i ty of 3.412.2.7 [place] .3.030096 .8 [facility] 2021-09-16 2021-09-16 [facility], 1.2.840.1 [id number] 52345 [facility] 12:50:59 23:59:00 Encounter Marni U 11895.1.1 ity of 3.412.2.7 [place] .3.763043 .8 [facility] 2021-09-16 2021-09-16 Outpatient MAIKOL, [facility] YODIT [id number] 878 12:50:59 23:59:00 NAKPERLITAIA Villa so n 2021-09-16 2021-09-16 [facility], 1.2.840.1 [id number] 46150 [facility] 16:00:00 16:00:00 Support Nakeshia U 32578.1.1 i ty of 3.412.2.7 [place] .3.713999 MD Jackson8 [facility] 2021-09-16 2021-09-16 Outpatient [facility] [id number] 653 13:57:23 15:26:05 NAKPERLITAIA Villa so n 2021-09-16 2021-09-16 [facility], 1.2.840.1 [id number] 83085 05202 [facility] 10:19:45 12:49:00 Encounter Nakperlitaia U 99527.1.1 ity of 3.412.2.7 [place] .3.131926 MD Jackson8 [facility] 2021-09-16 2021-09-16 Outpatient MAIKOL, [facility] YODIT [id number] 877 10:19:45 12:49:00 NAKESHIA Villa so n 2021-09-16 2021-09-16 [facility], 1.2.840.1 [id number] 5414 [facility] 09:20:00 10:15:48 Visit Nakeshia U 89686.1.1 i ty of 3.412.2.7 [place] .3.151974 MD [facility] 2021-09-16 2021-09-16 Outpatient [facility], [facility] YODIT [id number] 700 08:07:11 10:15:48 NAKESHIA Villa so n 2021-09-16 2021-09-16 NPR 1.2.840.1 [id number] 1790 Univers 08:00:00 08:00:00 08673.1.1 ity of 3.412.2.7 [place] .3.332116 MD [facility]rera [facility] 2021-09-16 2021-09-16 Outpatient EL MDA MDA [id number] 699 07:58:22 07:59:56 Addison o n 2021-09-16 2021-09-16 Travel 1.2.840.1 1.2.627.552 7011 [id number] Univers 00:00:00 00:00:00 15355.1.1 350.1.13.41 ity of 3.412.2.7 [place].3.698 [place] .3.528992 084.8 MD [facility]rera [facility] 2021-09-14 2021-09-14 Telephone Alpine, 1.2.840.1 [id number] 1089 [id number] Univers 00:00:00 00:00:00 Marni Busby 32247.1.1 i ty of 3.412.2.7 [place] .3.600139 MD [facility] 2021-08-26 2021-08-26 Orders [place], 1.2.840.1 [id number] 6729 Univers 00:00:00 00:00:00 Only Marni Busyb 79906.1.1 i ty of 3.412.2.7 [place] .3.887563 MD [facility] 2021-08-26 2021-08-26 Documentat [place], 1.2.840.1 [id number] Univers 00:00:00 00:00:00 ion Alisha 05490.1.1 ity of [place] 3.412.2.7 [place] .3.655814 MD [facility]rera [facility] 2021-08-22 2021-08-22 Telephone Tameka, 1.2.840.1 [id number] 1 [id number] Univers 00:00:00 00:00:00 Latira 50237.1.1 ity of 3.412.2.7 [place] .3.979019 MD [facility] 2021-08-21 2021-08-21 Emergency UR YODIT PEÑA Emergency [id number] MD 17:47:00 19:00:00 THOMAS yoder 2021-08-21 2021-08-21 Emergency Peña, 1.2.840.1 [id number] 1088 [id number] [facility] 17:47:00 19:00:00 Thomas 80475.1.1 ity of 3.412.2.7 [place] .3.224255 MD Jackson8 [facility] 2021-08-21 2021-08-21 Travel 1.2.840.1 1.2.419.649 3802 352283 [facility] 00:00:00 00:00:00 86927.1.1 350.1.13.41 ity of 3.412.2.7 2.2.7.3.698 [place] .3.661022 084.8 MD Jackson8 [facility] 2021-08-21 2021-08-21 Telephone Cueva, 1.2.840.1 [id number] 1088 [id number] Univers 00:00:00 00:00:00 Felicia Adrianne 11650.1.1 ity of 3.412.2.7 [place] .3.886509 MD [facility] 2021-08-20 2021-08-20 Emergency ER CASEY [facility] Emergency [id number] 17:29:00 23:20:00 THOMAS yoder 2021-08-20 2021-08-20 Emergency Peña, 1.2.840.1 [id number] 1088 [id number] [facility] 17:29:00 23:20:00 Thomas 81145.1.1 ity of 3.412.2.7 [place] .3.281306 MD [facility] 2021-08-20 2021-08-20 Emergency EL YODIT PEÑA [facility] [id number] MD 19:48:21 20:26:12 THOMAS yoder 2021-08-20 2021-08-20 Travel 1.2.840.1 1.2.162.203 1091 [id number] Univers 00:00:00 00:00:00 30414.1.1 350.1.13.41 ity of 3.412.2.7 2.[place].7.3.698 [place] .3.690570 084.8 MD Jackson8 [facility] 2021-08-19 2021-08-19 Travel 1.2.840.1 1.2.375.481 8829 152531 Univers 00:00:00 00:00:00 86756.1.1 350.1.13.41 ity of 3.412.2.7 2.[place].7.3.698 [place] .3.666472 084.8 MD Jackson8 [facility] 2021-08-18 2021-08-18 Office Fernando Kirkland [facility] 1.2.346.916 3106 5350 [facility] 13:00:00 15:14:26 Visit Aldo AMBULATOR 350.1.13.21 College Y 0.2.7.2.686 of 040.4001127 Medi eugenia 300 e 2021-08-17 2021-08-17 Telephone Arro, 1.2.840.1 [id number] 1088 [id number] Univers 00:00:00 00:00:00 Jennifer Armendariz 79284.1.1 i ty of 3.412.2.7 [place] .3.973125 MD Jackson8 [facility] 2021-08-16 2021-08-16 Kaila Villalobos, 1.2.840.1 [id number] 0134 Univers 00:00:00 00:00:00 Dominga Hameed 63988.1.1 ity of 3.412.2.7 [place] .3.140737 MD Jackson8 [facility] 2021-08-13 2021-08-14 Outpatient UR YODIT VILLALOBOS Emergency [id number] MD 19:56:00 09:37:00 DOMINGA yoder 2021-08-13 2021-08-14 Emergency Osvaldo Vidal 1.2.840.1 1010 92744 [id number] Univers 19:56:00 09:37:00 Dominga Villalobos 09107.1.1 ity of 3.412.2.7 [place] .3.645970 MD Jackson8 [facility] 2021-08-14 2021-08-14 Travel 1.2.840.1 1.2.371.758 5500 [id number] Univers 00:00:00 00:00:00 28701.1.1 350.1.13.41 ity of 3.412.2.7 2.2.7.3.698 [place] .3.106770 084.8 MD Jackson8 [facility] 2021-08-13 2021-08-13 Travel 1.2.840.1 1.2.216.312 2110 029306 Univers 00:00:00 00:00:00 29139.1.1 350.1.13.41 ity of 3.412.2.7 2[place].7.3.698 [place] .3.254232 084.8 MD Jackson8 [facility] 2021-07-27 2021-07-27 Telephone Bev John 1.2.840.11 4 [id number] [place] 00:[place]:00 00:00:00 Bev John 350.1.13.58 Health Medical 9.2.7.2.686 [place] 346.7194520 1 2021-07-27 2021-07-27 Nurse Jayla Roblero 1.2.840.11 4 [id number] [place] 00:00:00 00:00:00 Triage Jayla Roblero 350.1.13.58 Health MEDICAL 9.2.7.2.686 [place] [id number] 0 2021-07-26 2021-07-26 Outpatient [facility] [address] [place] 12:24:00 12:24:00 1228 [facility] 2021-07-25 2021-07-25 Telephone Luz Massey 1.2.840.1 14 [id number] [place] 00:00:00 00:00:00 Yue Masseyza MOISES 350.1.13.58 Health MEDICAL 9.2.7.2.686 CENTER [id number] 0 2021-07-25 2021-07-25 Telephone Mira Garcia 1.2.84 0.114 [id number] [place] 00:00:00 00:00:00 Mira Garcia Antonio 350.1.13.58 Health Medical 9.2.7.2.686 [place] 811.7512789 1 2021-07-15 2021-07-15 Orders Bev John 1.2.840.114 [id number] [place] 00:00:00 00:00:00 Only Bev John 350.1.13.58 Health Medical 9.2.7.2.686 [place] 933.9319922 1 2021-07-14 2021-07-14 Telephone Randee Gonzalez 1.2.840 .114 [id number] [place] 00:00:00 00:00:00 Randee Gonzalez 350.1.13.58 Health MEDICAL 9.2.7.2.686 CENTER [id number] 0 2021-07-13 2021-07-13 Patient Tiffany Moscoso 1.2.840.114 [id number] [place] 00:00:00 00:00:00 Outreach DanisJanTiffanylorenza Alvarez 350.1.13.58 Health Medical 9.2.7.2.686 [place] 543.9878852 1 2021-07-13 2021-07-13 Orders Finesse Grimm 1.2.305.449 1962 13123 [place] 00:00:00 00:00:00 Only Nomi Alvarez 350.1.13.58 H ealt Medical 9.2.7.2.686 [place] [id number] 1 2021-07-13 2021-07-13 Orders Finesse Grimm 1.2.888.654 1682 01975 [place] 00:00:00 00:00:00 Only Nomi Hudson 350.1.13.58 H ealth Medical 9.2.7.2.686 [place] 944.7177987 1 2021-07-13 2021-07-13 Telephone Fani Hartley DAFNE AGUILAR 1.2.840.1 14 [id number] [place] 00:00:00 00:00:00 Fani Hartley 350.1.13.58 Health MEDICAL 9.2.7.2.686 CENTER 576.1380306 0 2021-07-13 2021-07-13 Telephone Bev John 1.2.840.11 4 [id number] [place] 00:00:00 00:00:00 Bev Johne 350.1.13.58 Health Medical 9.2.7.2.686 [place] 977.7420486 1 2021-07-12 2021-07-12 Office Finesse Grimm 1.2.051.614 7932 52646 [place] 15:00:00 16:31:54 Visit Nomi Alvarez 350.1.13.58 H ealth Medical 9.2.7.2.686 [place] [id number] 1 2021-07-08 2021-07-08 Orders Finesse Grimm 1.2.593.733 7633 94555 [place] 00:00:00 00:00:00 Only Nomi Hesse 350.1.13.58 H ealth Medical 9.2.7.2.686 [place] 728.2868731 1 2021-07-08 2021-07-08 Telephone Finesse Grimm 1.2.840.114 13 [id number] [place] 00:00:00 00:00:00 Nomikeara SanchezHudson 350.1.13.58 H ealth Medical 9.2.7.2.686 [place] 995.1876348 1 2021-07-07 2021-07-07 Telephone Finesse Grimm 1.2.840.114 13 [id number] [place] 00:00:00 00:00:00 Nomikeara SanchezHudson 350.1.13.58 H ealth Medical 9.2.7.2.686 [place] 321.3887829 1 2021-06-17 2021-06-17 Telephone Tram Alonso 1.2.840.11 4 [id number] [place] 00:00:00 00:00:00 Tram Alonso PLAZA 350.1.13.58 Health MEDICAL 9.2.7.2.686 [place] 556.5034789 0 2021-06-17 2021-06-17 Orders Sirisha Deonmary 1.2.143.524 6239 36044 [place] 00:00:00 00:00:00 Only Nomi Hudson 350.1.13.58 H ealth Medical 9.2.7.2.686 [place] 100.9849951 1 2021-06-17 2021-06-17 Orders Finesse Grimm 1.2.811.734 8664 91166 [place] 00:00:00 00:00:00 Only Nomi Hudson 350.1.13.58 H ealth Medical 9.2.7.2.686 [place] 351.9185175 1 2021-06-17 2021-06-17 Orders Bev Johnmary 1.2.840.114 [id number] [place] 00:00:00 00:00:00 Only Bev John [place] 350.1.13.58 Health Medical 9.2.7.2.686 [place] 232.9844260 1 2021-06-09 2021-06-09 Orders Finesse Grimm 1.2.388.837 4435 68341 [place] 00:00:00 00:00:00 Only Nomi Hudson 350.1.13.58 H ealth Medical 9.2.7.2.686 [place] 989.2057298 1 2021-06-09 2021-06-09 Orders Finesse Grimm 1.2.894.759 0722 84235 [place] 00:00:00 00:00:00 Only Nomi Hudson 350.1.13.58 H ealth Medical 9.2.7.2.686 [place] 265.7622417 1 2021-06-09 2021-06-09 Telephone Finesse Grimm 1.2.840.114 12 [id number] [place] 00:00:00 00:00:00 Nomi Hudson 350.1.13.58 H ealth Medical 9.2.7.2.686 [place] 231.5620632 1 2021-06-07 2021-06-07 Finesse Johnson 1.2.408.198 4484 36156 [place] 00:00:00 00:00:00 Only Nomi H[facility].1.13.58 [facility] 9.2.7.2.686 [place] 363.0072133 1 2021-06-07 2021-06-07 Refill Selam Gómez DAFNE AGUILAR 1.2.84 0.114 [id number] [place] 00:00:00 00:00:00 Selam Gómez VICTOR MRICHIE 350.1.13.58 Health MEDICAL 9.2.7.2.686 CENTER [id number] 0 2021-06-07 2021-06-07 Finesse Johnson 1.2.134.487 5810 12782 [place] 00:00:00 00:00:00 Only Nomi Hesse 350.1.13.58 [facility] 9.2.7.2.686 [place] 199.9225369 1 2021-06-07 2021-06-07 Refill Finesse Grimm 1.2.408.188 5780 33333 [place] 00:00:00 00:00:00 Nomi Hesse 350.1.13.58 [facility] 9.2.7.2.686 [place] 056.4891572 1 2021-06-07 2021-06-07 Telephone Dulce MariaOctober DAFNE AGUILAR 1.2.840.1 14 [id number] [place] 00:00:00 00:00:00 Dulce MariaOctober VICTOR MZA 350.1.13.58 Health MEDICAL 9.2.7.2.686 CENTER [id number] 0 2021-06-03 2021-06-03 Nurse Natalya Toribio 1.2.840.114 [id number] [place] 00:00:00 00:00:00 Triage Natalya Toribio 350.1.13.58 Health MEDICAL 9.2.7.2.686 CENTER [id number] 0 2021-06-03 2021-06-03 Finesse Johnson 1.2.379.816 6786 24716 [place] 00:00:00 00:00:00 Only Nomikeara SanchezHudson 350.1.13.58 H ealth Medical 9.2.7.2.686 [place] 592.0527842 1 2021-05-25 2021-05-25 Refill Finesse Grimm 1.2.928.192 6291 63219 [place] 00:00:00 00:00:00 Nomi Hudson 350.1.13.58 H ealth Medical 9.2.7.2.686 [place] 055.5383446 1 2021-05-25 2021-05-25 Telephone Finesse Grimm 1.2.840.114 12 [id number] [place] 00:00:00 00:00:00 Nomikeara SanchezHudson 350.1.13.58 H ealth Medical 9.2.7.2.686 [place] 291.9439528 1 2021-05-20 2021-05-20 Orders Finesse Grimm 1.2.761.750 0458 78496 [place] 00:00:00 00:00:00 Only Nomi Hesse 350.1.13.58 H ealth Medical 9.2.7.2.686 [place] 456.6315533 1 2021-05-18 2021-05-18 Refill Finesse Grimm 1.2.728.489 1218 49493 [place] 00:00:00 00:00:00 Nomi Hudson 350.1.13.58 H ealth Medical 9.2.7.2.686 [place] 430.7658731 1 2021-05-11 2021-05-11 Telephone Sendy Aguilar 1.2.840.1 14 [id number] [place] 00:00:00 00:00:00 Sendy Aguilar 350.1.13.58 Health MEDICAL 9.2.7.2.686 [place] [id number] 0 2021-05-11 2021-05-11 Telephone Randee Gonzalez 1.2.840 .114 [id number] [place] 00:00:00 00:00:00 Randee Gonzalez 350.1.13.58 Health MEDICAL 9.2.7.2.686 CENTER 415.9396069 0 2021-05-11 2021-05-11 Refill Sirisha DAFNE 1.2.840.114 63529 8038 [place] 00:00:00 00:00:00 Nomi HESSE 350.1.13.58 [facility] 9.2.7.2.686 [facility] [id number] 4 2021-05-11 2021-05-11 Orders Sirisha Deonmary 1.2.998.468 [id number] [place] 00:00:00 00:00:00 Only Nomi Hesse 350.1.13.58 [facility] 9.2.7.2.686 [place] [id number] 1 2021-05-11 2021-05-11 Telephone Finesse Grimm 1.2.840.114 12 [id number] [place] 00:00:00 00:00:00 Nomi Sanchezaire 350.1.13.58 [facility] 9.2.7.2.686 [place] [id number] 1 2021-04-28 2021-04-28 Orders Sirisha Deonmary 1.2.780.772 [id number] [id number] [place] 00:00:00 00:00:00 Only Nomi Hesse 350.1.13.58 [facility] 9.2.7.2.686 [place] [id number] 1 2021-04-27 2021-04-27 Telephone Curtis Eric 1.2.840.1 14 [id number] [place] 00:00:00 00:00:00 Curtis Eric 350.1.13.58 Health MEDICAL 9.2.7.2.686 [place] [id number] 0 2021-04-27 2021-04-27 Orders Bev John 1.2.840.114 [id number] [place] 00:00:00 00:00:00 Only Bev John 350.1.13.58 Health Medical 9.2.7.2.686 [place] [id number] 1 2021-04-26 2021-04-26 Refill Finesse Grimm 1.2.196.094 [id number] [id number] [place] 00:00:00 00:00:00 Nomikeara SanchezHudson 350.1.13.58 H ealth [facility] 9.2.7.2.686 [place] [id number] 1 2021-04-22 2021-04-22 Telephone Finesse Grimm 1.2.840.114 12 [id number] [place] 00:00:00 00:00:00 Nomikeara SanchezHudson 350.1.13.58 H [facility] 9.2.7.2.686 [place] [id number] 1 2021-04-13 2021-04-13 Refill Finesse Grimm 1.2.828.319 4075 [id number] [place] 00:00:00 00:00:00 Nomikeara SanchezHudson 350.1.13.58 H [facility] 9.2.7.2.686 [place] [id number] 1 2021-04-11 2021-04-11 [facility] Finesse Grimm 1.2.554.037 [id number] [id number] [place] 00:00:00 00:00:00 Only Nomikeara SanchezHudson 350.1.13.58 H e[facility] 9.2.7.2.686 [place] [id number] 1 2021-04-10 2021-04-10 Telephone Yari Potter PENDING SALE TO [facility] 1.2.840. 114 [id number] [place] 00:00:00 00:00:00 Afsaneh Potterl PLAZA 350.1.13.58 [facility] MEDICAL 9.2.7.2.686 [place] [id number] 0 2021-03-30 2021-03-30 Refill Sirisha DAFNE 1.2.840.114 [id number] [place] 00:00:00 00:00:00 Nomi BELLAIRE 350.1.13.58 H ealth MEDICAL 9.2.7.2.686 [facility] [id number] 4 2021-03-30 2021-03-30 Refill Finesse Grimm 1.2.626.223 [id number] [id number] [place] 00:00:00 00:00:00 Nomikeara SanchezHudson 350.1.13.58 H e[facility] 9.2.7.2.686 [place] [id number] 1 2021-03-30 2021-03-30 Kim Finesse Grimm 1.2.174.355 [id number] [id number] [place] 00:00:00 00:00:00 Only Nomi Sanchezaire 350.1.13.58 [facility] 9.2.7.2.686 [place] [id number] 1 2021-03-30 2021-03-30 Telephone Mira Celeste 1.2.840 .114 [id number] [place] 00:00:00 00:00:00 Mira Celeste 350.1.13.58 Health MEDICAL 9.2.7.2.686 [place] [id number] 0 2021-03-30 2021-03-30 Telephone Fineses Grimm 1.2.840.114 12 [id number] [place] 00:00:00 00:00:00 Nomikeara SanchezHudson 350.1.13.58 [facility] 9.2.7.2.686 [place] [id number] 1 2021-03-16 2021-03-16 Refill Finesse Grimm 1.2.975.388 1951 [id number] [place] 00:00:00 00:00:00 Nomikeara SanchezHudson 350.1.13.58 [facility] 9.2.7.2.686 [place] [id number] 1 2021-03-16 2021-03-16 Telephone Danielle Lagos 1.2.840.1 14 [id number] [place] 00:00:00 00:00:00 Demond Danielle MOISES 350.1.13.58 Health MEDICAL 9.2.7.2.686 [place] [id number] 0 2021-03-16 2021-03-16 Finesse Johnson 1.2.228.739 5164 [id number] [place] 00:00:00 00:00:00 Only Nomi Hudson 350.1.13.58 [facility] 9.2.7.2.686 [place] [phone] 1 2021-03-16 2021-03-16 Finesse Johnson 1.2.172.644 [id number] [id number] [place] 00:00:00 00:00:00 Only Nomi Alvarez 350.1.13.58 H [facility] 9.2.7.2.686 [place] [id number] 1 2020-06-30 2020-06-30 Aaron GRIMM, [facility] [id number] [place] 16:00:00 16:00:00 t; Dayo KRUSE M.D. [place] ans NORMAN, M.D. 2018-12-02 2018-12-02 [facility] SIRISHA, [facility] [id number] [place] 13:00:00 13:00:00 t; Family Edward KRUSE i, M.D. [facility] ephraim KRUSE M.D. 2017-08-03 2017[facility]03 [facility], [facility] [id number] 436 [place] 14:30:00 14:30:00 t; Norah KRUSE i, M.D. [facility] ephraim KRUSE M.D. 2017-06-20 2017-06-20 [facility] SIRISHA, [facility] [id number] [place] 11:30:00 11:30:00 t; Edward KRUSE i, M.D. ans NORMAN, M.D. 2017-05-21 2017-05-21 [facility] SIRISHA, [facility] [id number] [place] 15:30:00 15:30:00 t; Edward KRUSE i, M.D. ans NORMAN, M.D. 2017-03-05 2017-03-05 [facility] [place], [facility] [id number] [place] 16:00:00 16:00:00 t; Edward KRUSE i, M.D. ans NORMAN, M.D. 2017-01-01 2017-01-01 Aaron GRIMM, [facility] [id number] [place] 16:00:00 16:00:00 t; Edward KRUSE i, M.D. ans NORMAN, M.D. 2016-11-03 2016-11-03 [facility] [place], [facility] [id number] [place] 14:30:00 14:30:00 t; Edward KRUSE i, M.D. ans NORMAN, M.D. 2016-08-21 2016-08-21 Aaron GRIMM [facility] UTP [id number] [place] 16:00:00 16:00:00 t; Edward KRUSE i, M.D. ans NORMAN, M.D. Results Test Description Test Time Test Comments Results Result Comments Source COVID-19 (REENA-CoV-2) PCR Asymptomatic 2021-12-15 11:16:43 Test Item Value Reference Range Interpretation Comme nts COVID19 SARS Indication (test Pre-Out of OR Procedure code = 56060) COVID19 SARS Result (test code Not Detected Not Detected = 72891-8) COVID19 SARS Interpretation SARS-CoV-2 NOT Detected. Reference (test code = 68632) Range: Not Detected Methodology: The Zamorano RealTime SARS-CoV-2 assay is a qualitative real-time reverse repacker polymerase chain reaction (baked goods stock clerk-PCR) test to detect RNA from SARS-CoV-2 in nasal, nasopharyngeal and oropharyngeal swabs from patients with signs and symptoms of infection who are suspected of COVID-19 by their health care provider. The Zamorano RealTime SARS-CoV-2 performed on the Quibly000 System is a dual target assay with primers and probes for the RdRp and N genes. Results must be interpreted within the context of all relevant clinical and laboratory findings, and epidemiological risk factors. Positive results are indicative of the presence of SARS-CoV-2 RNA; clinical correlation with patient history and other diagnostic information is necessary to determine patient infection status. Positive results do not rule out bacterial infection or co-infection with other viruses. Negative results do not preclude SARS-CoV-2 infection and should not be used as the sole basis for patient management decisions. The Zamorano RealTime SARS-CoV-2 assay is for in vitro diagnostic use under FDA Emergency Use Authorization only. Testing is limited to laboratories certified under the Clinical Laboratory Improvement Amendments of 1988 (CLIA), 42U.S.C. 263a, to perform high complexity tests. The Test was performed by the CLIA-certified, high-complexity Molecular Diagnostics Laboratory (MDL) at [facility] under the Food and Drug Administration (FDA) s Emergency Use Authorization. Factsheet for patients: https://www.[facility].org/AbbottFactS heetPatientsFactsheet for healthcare providers: https://www.[facility].org/AbbottFactS heetHCP Test performed by:[facility] Molecular Diagnostic [id number] [place] [address] [facility] CampusMammography Digital Diagnostic [id number] 20:21:30 Test Item Value Reference Range Interpretation Comments Radiology Study observation (narrative) (test code = 10584-8) IMP (test code = IMP) 1: Calcifications in both breasts are benign. 2: Bilateral breast symptoms require additional imaging evaluation. Anultrasound exam is recommended. BI-RADS Category 0:Incomplete: Needs Additional Imaging Evaluation PXN (test code = PXN) Barb Skinner MD - 09/16/2021 CLINICAL INDICATION:Patient is a 51 year old female and is seen for nipple discharge MAMMO DIGITAL DIAGNOSTIC BILATERALCOMPARISON:No prior imaging studies are available for comparison. FINDINGS:The breasts are almost entirely fatty. 1: There are benign appearing calcifications in both breasts. 2: The patient reports bilateral pain and possible intermittent nippledischarge from both breasts which is described as yellow/purulent. The patientalso has bilateral inframammary erythema. No suspicious mammographic finding isidentified. An ultrasound exam is to follow. IMPRESSION:1: Calcifications in both breasts are benign. 2: Bilateral breast symptoms require additional imaging evaluation. Anultrasound exam is recommended. BI-RADS Category 0:Incomplete: Needs Additional Imaging Evaluation Lab Interpretation Abnormal (test code = 36974-1) [facility] CampusWound Culture w/Gram Stain 2021-08-23 22:54:42 Test Item Value Reference Range Interpretation Comments Final Report (test Few Actinobaculum A code = 8488) schaalii...Normal site kiara present. Normal kiara consists ofCoryneform Bacteria likeStaphylococcus coagulase negative like andStaphylococcus coagulase negative of a second type. like Path Review (test The results have been A code = 8492) reviewed and electronically signed by Pathologist:Dorothy Bowden MD, PhD #[id number] Gram Stain Report Moderate WBC's seenMany A (test code = 47589-6) Gram Positive CocciMany Gram Variable Sher Lab Interpretation Abnormal (test code = 30700-3) [facility] CampusUrinalysis with Microscopic 2021-08-21 03:45:57 Test Item Value Reference Interpretation Comments Range UA WBC (test code = 5 See_Comment H [Automa alexys 7904) message] The system which generated this result transmitted reference range : 0 - 2 /HPF. The reference range was not used to interpret this result as normal/abnormal . UA RBC (test code = 1 See_Comment [Automa alexys 7891) message] The system which generated this result transmitted reference range : 0 - 2 /HPF. The reference range was not used to interpret this result as normal/abnormal . UA Mucous (test code NOT SEEN Not Seen-Trace = 7887) /HPF UA Bacteria (test 3+ NOT SEEN /HPF A code = 7870) UA Squam Epi (test OCC None-Occasiona code = 7896) l /HPF UA CaOx Mandy (test OCC NOT SEEN /HPF A code = 7875) EUGENIO (test code = Some reporting EUGENIO) parameters within the Urinalysis test have changed due to the implementation of new instrumentation in the [facility], allowing greater sensitivity of measurement. Urinalysis results reported by the [facility] using existing instrumentation, as well as Urinalysis testing performed manually or by backup methodology at the [facility] will remain relatively unchanged. New reporting parameters and units will now be reported for all campuses. Lab Interpretation Abnormal (test code = 90641-2) [facility] CampusUrinalysis w/Microscopic if [id number] 03:44:13 Test Item Value Reference Range Interpretation Comments UA Color (test code = 7877) Crystal Straw-Yellow A UA Appear (test code = 7868) Clear Clear UA Glucose (test code = 7881) NEG NEG mg/dL UA Bili (test code = 7871) NEG NEG UA Ketones (test code = 7884) Trace NEG mg/dL A UA Spec Grav (test code = 7894) 1.005 1.003-1.035 UA Blood (test code = 7872) NEG NEG UA pH (test code = 7909) 6.0 5.0-9.0 UA Protein (test code = 7890) NEG NEG mg/dL UA Urobilinogen (test code = 7903) POS NEG A UA Nitrite (test code = 7888) POS NEG A UA Leuk Est (test code = 7886) NEG NEG Lab Interpretation (test code = Abnormal 30562-5) [facility] CampusCOVID-19 (SARS-CoV-2)Lracmmixqihi-[id number] 02:13:33 Test Item Value Reference Range Interpretation Comments COVID19 Not Detected Not Detected (SARS-CoV-2) (test code = 03876-0) COVID19 SARS Inpatient Indication (test Admission code = 77134) Covid 19 Comment See Note The quin S ARS-CoV-2 (test code = [place] [address]) use on the mary s Brit System is a marcelo l-time RT-PCR assay in tended for the qualita tive detection of SARS-CoV-2 (COV ID-19) viral RNA in nasopharyngeal swabs from either individuals graeme pected of COVID-19 by their healthcare prov ider or from any individual, inc luding individuals wit hout symptoms or oth er reasons to susp ect COVID-19. A fac t sheet for patie nts provided by the cultural historian ([employer]) can be rev iewed at: https://www.fda .gov/m edia/238194/keith nload. A fact sheet fo Health Care pro viders is provided by the cultural historian ([employer]) and can be reviewed at: https://www.fda .gov/m edia/610773/keith nload Results must be interpreted wit hin the context of all relevant clinic al and laboratory find ings and should not form the sole basis for a diagnosis or treatment decis ion. Positive result s do not rule out bacterial infec tion or co-infection with other viruses. Negative result s do not preclude SARS-CoV-2 infe ction and must be com bined with clinical observations, p atient history, and/or epidemiological information. Th is assay has been authorized by t FDA for use only un sylvia Emergency Use Authorization ( EUA) in laboratories that have been CLIA-certified to perform moderate-comple xity and high-comple xity tests. The Microbiology Laboratory at [facility], CLIA Accreditation #[id number] and CAP Accreditation #[id number], verif ied the performance characteristics of this assay. Int ernal controls are us ed to monitor all sta ges of the test proces s. [facility] CampusFractionated [id number] 01:25:43 Test Item Value Reference Range Interpretation Comments Bili Total (test 0.4 mg/dL See_Comment Indocyanine Green (ICG) code = 5096) may cause false ly elevated biliru bin results. Total and direct bilirubin must not be measured from s amples containing indo cyanine green. False el evation of total bilirubin can be seen in patient s with IgG concentrations above 28 g/L. [Automated message] The system AlertaPhone generated this result transmitted ref erence range: <=1.2. T he reference range was not used to interpr et this result as normal/abnormal . Bili Direct (test See_Comment Indocyanin e Green (ICG) code = 5094) may cause false ly elevated biliru bin results. Total and direct bilirubin must not be measured from s amples containing indo cyanine green. [Automat ed message] The sy stem which generated this result transmitted ref erence range: <=0.3. T he reference range was not used to interpr et this result as normal/abnormal . Bili Indirect (test See Note 0.0-0.9 Unable t o calculate code = 5095) Indirect Biliru bin result due to some par ameters are outside rep ortable range [facility] CampusPhosphorus [id number] 01:25:41 Test Item Value Reference Range Interpretation Comments Phosphorus (test code = 6817) 3.4 mg/dL 2.5-4.5 [facility] CampusLDH2022-01-23 01:25:40 Test Item Value Reference Range Interpretation Comments LDH (test code = 6111) 355 U/L 135-214 H Speci men is hemolyzed. Resu lts may be falsely elevated. Repea t test if needed.Resul ts greater than 16 51 U/L may not be reli able due to matrix e ffect with extended dilution as it exceeds the cultural historian s recommended l imit. Caution should be exercised when interpreting glasgow ch values and done in conjunction wit h clinical contex t. Lab Interpretation (test Abnormal code = 32341-3) [facility] CampusCalcium [id number] 01:25:38 Test Item Value Reference Range Interpretation Comments Calcium Lvl (test code = 5258) 8.9 mg/dL 8.4-10.2 [facility] CampusGlomerular Filtration Rate 2021-08-21 01:25:37 Test Item Value Reference Range Interpretation Comments eGFR-AA (test code 139 See_Comment Normal eG FR: >= 60 = 8062) mL/min/1.73 m2N ote: The eGFR is calculated u sing the CKD-EPI equatio n. The eGFR declines with a ge. eGFR <60 mL/min/1.73 m2 is considered as "decreased". This equation should only be used for patients 18 and older. According to th e National Kidney Foundati on's Kidney Disease Outcome Quality Initiative (KDO QI) classification and 2012 Kidney Disease Improving Global Outcomes (KDIGO) Clinical Practi ce Guideline, the stage of CK D should be categorized bas ed on estimated GFR. Stage Description GFR mL/min/1.73 m21 Normal or h igh GFR >=902 Mildly decrease d GFR 60-893a Mildly to moder ately decreased GFR 4 5-593b Moderately to s everely decreased GFR 3 0-444 Severely decreased GFR 1 5-295 Kidney failure <15 [Au tomated message] The sy stem which generated this result transmitted ref erence range: >=60 mL/min/1.7 3 sq. m. The reference range was not used to interpret is result as normal/abnormal . eGFR-CHELSEA (test code 120 See_Comment Normal e GFR: >= 60 = 8063) mL/min/1.73 m2N ote: The eGFR is calculated u sing the CKD-EPI equatio n. The eGFR declines with a ge. eGFR <60 mL/min/1.73 m2 is considered as "decreased". This equation should only be used for patients 18 and older. According to th e National Kidney Foundati on's Kidney Disease Outcome Quality Initiative (KDO QI) classification and 2012 Kidney Disease Improving Global Outcomes (KDIGO) Clinical Practi ce Guideline, the stage of CK D should be categorized bas ed on estimated GFR. Stage Description GFR mL/min/1.73 m21 Normal or h igh GFR >=902 Mildly decrease d GFR 60-893a Mildly to moder ately decreased GFR 4 5-593b Moderately to s everely decreased GFR 3 0-444 Severely decreased GFR 1 5-295 Kidney failure <15 [Au tomated message] The sy stem which generated this result transmitted ref erence range: >=60 mL/min/1.7 3 sq. m. The reference range was not used to interpret th is result as normal/abnormal . [facility] CampusAlbumin [id number] 01:25:36 Test Item Value Reference Range Interpretation Comments Albumin Lvl (test code 4.0 See_Comment [Aut omated message] The = 4212) system which ge nerated this result tra nsmitted reference range : 3.5 - 5.2 gm/dL. The refe rence range was not used to interpret this result as normal/abnormal . [facility] CampusTotal [id number] 01:25:35 Test Item Value Reference Range Interpretation Comments Total Protein (test code = 7649) 7.4 g/dL 6.4-8.3 [facility] CampusAspartate Aminotransferase 2021-08-21 01:25:34 Test Item Value Reference Range Interpretation Comments AST (test code = 27 U/L See_Comment Specimen is hemolyzed. 4731) Results may be falsely elevated. Repea t test if needed. [Automa aelxys message] The system AlertaPhone generated this result tra nsmitted reference range : <=32. The reference range was not used to interpr et this result as sara l/abnormal. [facility] CampusMagnesium [id number] 01:25:33 Test Item Value Reference Range Interpretation Comments Magnesium (test code = 6359) 1.7 mg/dL 1.6-2.6 [facility] CampusElectrolyte [id number] 01:25:32 Test Item Value Reference Range Interpretation Comments Sodium Lvl (test code = 128 See_Comment L [Au tomated message] 8296) The system AlertaPhone generated this result transmitted ref erence range: 136 - 14 5 mEq/L. The refe rence range was not u sed to interpret this result as normal/abnor mal. Potassium Lvl (test code 4.2 See_Comment Spe cimen is = 8661) hemolyzed. Resu lts may be falsely elevated. Repea t test if needed. [Aut omated message] The sy stem which generated this result transmit alexys reference range : 3.5 - 5.1 mEq/L. Th e reference range was not used to int erpret this result as normal/abnormal . Chloride (test code = 91 See_Comment L [Auto mated message] 2589) The system AlertaPhone generated this result transmitted ref erence range: 98 - 107 mEq/L. The refe rence range was not u sed to interpret this result as normal/abnor mal. CO2 (test code = 5227) 19 See_Comment L [Aut omated message] The system AlertaPhone generated this result transmitted ref erence range: 22 - 29 mEq/L. The reference r victorino was not used to interpret this result as normal/abnor mal. Anion Gap (test code = 18 See_Comment H [Aut omated message] 9220) The system AlertaPhone generated this result transmitted ref erence range: 4 - 14 m Eq/L. The reference r victorino was not used to interpret this result as normal/abnor mal. Lab Interpretation (test Abnormal code = 90927-6) [facility] CampusAlkaline [id number] 01:25:31 Test Item Value Reference Range Interpretation Comments Alk Phos (test code = 4768) 91 U/L 35-104 [facility] CampusGlucose [id number] 01:25:30 Test Item Value Reference Range Interpretation Comments Glucose Level (test 96 mg/dL 70-99 Effectiv e 02/23/16, the code = 5699) glucose referen ce intervals have been updated based o n [place] [employer] yaima delines (Standards of M edical Care in Diabete s 2016. Diabetes Care 2 016; 39: S13-S22).Fastin g blood glucose:Normal: 70-99 mg/dLImpaired f asting glucose (increa sed risk for diabetes or pre-diabetes): 100-125 mg/dLDiabetes m ellitus: >/=126 mg/dL Ra ndom blood glucose:N ormal: 70-199 mg/dLNot e: Random glucose >100 mg /dL is associated with increased risk for diabetes [facility] CampusALT2022-01-23 01:25:29 Test Item Value Reference Range Interpretation Comments ALT (test code = 22 U/L See_Comment [Automated message] The 4706) system which ge nerated this result transmit alexys reference range : <=33. The reference range was not used to interpr et this result as sara l/abnormal. [facility].Serum [id number] 01:25:28 Test Item Value Reference Range Interpretation Comments Creatinine (test code = 5399) 0.39 mg/dL 0.51-0.95 L Lab Interpretation (test code = Abnormal 78827-1) [facility] CampusBUN2022-01-23 01:25:27 Test Item Value Reference Range Interpretation Comments BUN (test code = 5055) 6-23 L Lab Interpretation (test code = Abnormal 08170-4) [facility] CampusLipase2022-01-23 01:23:09 Test Item Value Reference Range Interpretation Comments Lipase Lvl (test code = 6165) 24 U/L 13-60 [facility] CampusAmylase2022-01-23 01:23:08 Test Item Value Reference Range Interpretation Comments Amylase Lvl (test code = 4806) 19 U/L 28-100 L Lab Interpretation (test code = Abnormal 08235-5) [facility] CampusDifferential2022-01-23 01:04:58 Test Item Value Reference Range Interpretation Comments Neutrophil % (test code = 77.8 % 42.0-66.0 H 6491) Lymphocyte % (test code = 15.8 % 24.0-44.0 L 6194) Monocyte % (test code = 5.5 % 2.0-7.0 6422) Eosinophil % (test code = 0.1 % 1.0-4.0 L 5520) Basophil % (test code = 0.3 % 0.0-1.0 5068) IGRE % (test code = 5958) 0.5 % 0.0-0.4 H IG RE % count includes Metamyelocytes, Myelocytes, and Promyelocytes. Neutrophil Abs (test code 9.84 K/uL 1.70-7.30 H = 6492) Lymphocyte Abs (test code 1.99 K/uL 1.00-4.80 = 6195) Monocyte Abs (test code = 0.69 K/uL 0.08-0.70 6423) Eosinophil Abs (test code 0.01 K/uL 0.04-0.40 L = 5521) Basophil Abs (test code = 0.04 K/uL 0.00-0.10 5069) IG Abs (test code = 5954) 0.06 K/uL 0.00-0.04 H Lab Interpretation (test Abnormal code = 36652-5) [facility] [place].[id number] 01:04:56 Test Item Value Reference Range Interpretation Comments WBC (test code = 8034) 12.6 K/uL 4.0-11.0 H RBC (test code = 6932) 4.48 See_Comment [Aut omated message] The system AlertaPhone generated this result transmitted ref erence range: 4.00 - 5 .50 M/uL. The refer ence range was not u sed to interpret this result as normal/abnor mal. Hgb (test code = 5898) 13.1 See_Comment [Aut omated message] The system AlertaPhone generated this result transmitted ref erence range: 12.0 - 1 6.0 gm/dL. The refe rence range was not u sed to interpret this result as normal/abnor mal. Hct (test code = 5860) 40.6 % 37.0-47.0 MCV (test code = 6222) 91 fL 82-98 MCH (test code = 6220) 29.2 pg 27.0-31.0 MCHC (test code = 6221) 32.3 See_Comment [Au tomated message] The system AlertaPhone generated this result transmitted ref erence range: 31.0 - 3 6.0 gm/dL. The refe rence range was not u sed to interpret this result as normal/abnor mal. RDW-SD (test code = 54.7 fL 35.1-46.3 H 6972) RDW-CV (test code = 16.5 % 12.0-15.5 H 6971) Platelet count (test 202 K/uL 140-440 code = 6832) MPV (test code = 6282) 10.9 fL 4.0-10.4 H INRBC (test code = 0.0 % See_Comment The INRBC (instrument 5974) NRBC) value ref lects the enumeration of nucleated red b lood cells contained in a 200uL sampleof whole blood analyzed by the instrument. Thi s value maydiffer from the NRBC value reported in a m anual differential,wh ich is based on a 100 cell differential. [Automated mess age] The system AlertaPhone generated this result transmitted ref erence range: <=0.0. T he reference range was not used to int erpret this result as normal/abnormal . Lab Interpretation Abnormal (test code = 06748-9) [facility] CampusUrine Drug Screen STAT, Qualitative, Without [id number] 20:20:27 Test Item Value Reference Range Interpretation Comments U Amph Scr (test code = Negative Negative 7681) U Corie Scr (test code = Negative Negative 7694) U Benzodia Scr (test Positive Negative A code = 7700) U Cannab Scr (test code Negative Negative = 7707) U Cocaine Scr (test code Negative Negative = 7715) U Methadone (test code = Negative Negative 7768) U Opiate Scr (test code Positive Negative A = 7780) U PCP Scr (test code = Negative Negative 7790) U Propoxyphene (test Negative Negative Drugs r eported as code = 7804) positive have n ot been confirmed by a second method a nd should be used for medical purpose only. To order confir mation testing, contac t laboratory. n ote: Below are cut-o ff Concentrations for all urine drugs of abuse performed in the laboratory. Any value below the cut-off is cons idered negative.Some d rugs listed in the t able may not be incl uded in this panel. Amphetamine 100 0 ng/mLBarbituate s 200 ng/mLBenzodiaze pines 200 ng/mLCocain e metabolites 300 ng/mLOpiates 30 0 ng/mLPhencyclid ine 25 ng/mLPropoxyphe ne 300 ng/mLMarijuana Metabolites 50 ng/mLMethadone 300 ng/mLUrine alco hol 20 ng/mL Performin g Site: [facility] Lab, [facility], [address] [place] [address], [address]. Lab Interpretation (test Abnormal code = 21576-5) [facility] CampusTMP Interpretation Antibody Screen [id number] 15:00:42 Test Item Value Reference Range Interpretation Comments TMP Auto Neg At the present ABSC Interp time, patient (test code = plasma shows no ____ANGELA LANDRY MD 7535) evidence of RBC - [id number] alexys by: alloantibodies. ANGELA JOSEPH MD - [id number] D ate/Time: 08.14.2021 9:00 AM LAB ANIMAL TECHNOLOGIST Transcribed Roger e/Time: 08.14.2021 9:00 AM CSTElectronical ly Signed By: ANGELA DELONG MD - [id number] on 07.30 9:00 AM C [facility] CampusConfirm [id number] 05:56:03 Test Item Value Reference Range Interpretation Comments ABORh Confirm. (test code = 882-1) A POS [facility] CampusAntibody [id number] 04:48:36 Test Item Value Reference Range Interpretation Comments ABSC. (test code = 890-4) Negative ABSC [facility] CampusABORh2022-01-16 04:48:35 Test Item Value Reference Range Interpretation Comments ABORh. (test code = 882-1) A POS [facility] CampusClot Expiration [id number] 04:48:34 Test Item Value Reference Range Interpretation Comments T & S Expiration (test code = 08/16/2021 5318) [facility] CampusaPTT2022-01-16 03:40:30 Test Item Value Reference Range Interpretation Comments aPTT (test code = 32.8 See_Comment [Automate d message] The 6773) system which ge nerated this result transmit alexys reference range : 24.7 - 36.8 second(s). The reference range was not used to interpr et this result as sara l/abnormal. [facility] CampusProthrombin Time with [id number] 03:40:29 Test Item Value Reference Range Interpretation Comments PT (test code = 6746) 13.1 See_Comment [Auto mated message] The system which ge nerated this result transmit alexys reference range : 11.5 - 13.9 second(s). The reference range was not used to interpr et this result as sara l/abnormal. INR (test code = 1.08 0.90-1.10 5973) [facility] [id number] 03:39:35 Test Item Value Reference Range Interpretation Comments TSH (test code = 0.62 See_Comment [Automated message] The 7555) system which ge nerated this result transmit alexys reference range : 0.27 - 4.20 mcunit/mL. The reference range was not used to interpr et this result as sara l/abnormal. [facility] CampusUric [id number] 03:39:32 Test Item Value Reference Range Interpretation Comments Uric Acid (test code = 7955) 4.9 mg/dL 2.4-5.7 [facility] CampusAmmonia [id number] 03:39:03 Test Item Value Reference Range Interpretation Comments Ammonia (test code = 29 See_Comment [Autom ated message] The 5763) system which ge nerated this result tra nsmitted reference range : 11 - 51 mcmol/L. The re ference range was not u sed to interpret this result as normal/abnormal . [facility] CampusHemoglobin [id number] 03:14:58 A1C<4.34.3 - 5.6 %[facility] CENTERUnTexas Health Allen[U] XRAY CHEST- AP AND LAT. AND APICAL LORDOTIC VWS [id number] 14:47:00 Test Item Value Reference Range Interpretation Comments XR CHEST- AP AND EXAM: XR CHEST 2 VIEWS LAT. AND APICAL DATE: 12/02/2018 3:12 PM CDT LORDOTIC VWS (test INDICATION: Right code = XR CHEST- AP supraclavicular mass AND LAT. AND APICAL COMPARISON: None LORDOTIC VWS) TECHNIQUE: PA and lateral chest radiographs FINDINGS: There are no significant osseous abdomen Ryan.The heart is at the upper limits of normal in size; however, some of the apparent cardiomegaly may be related to underexpansion of the lungs.No mediastinal or hilar masses present.The lungs are clear, and there is no pleural effusions.There is suggestion of soft tissue above the upper ribs in the region of the clavicles bilaterally. No calcification is present. IMPRESSION:1. No acute cardiopulmonary disease.2. Recommend evaluation of soft tissue masses in the neck base and upper chest with CTs of the chest and neck. 12/02/2018 3:52 PM CDT Natan Ritter [facility]] BASIC METABOLIC PANEL [id number] 17:15:01 Test Item Value Reference Range Interpretation Comments Glucose Lvl (test 102 mg/dl 70-99 Adult refe rence range code = Glucose values reflec t the Lvl) clinical guidel inesof the [place] Diabet es Association. Blood Urea 11 mg/dl 7-22 Nitrogen (test code = Blood Urea Nitrogen) Creatinine Lvl 0.70 mg/dl 0.50-1.40 (test code = Creatinine Lvl) Sodium Level 132 {mEq/l} 135-145 (test code = Sodium Level) Potassium Level 4.1 {mEq/l} 3.5-5.1 (test code = Potassium Level) Chloride Level 95 {mEq/l} 95-109 (test code = Chloride Level) Carbon Dioxide 23 {mEq/l} 24-32 (test code = Carbon Dioxide) AGAP (test code = 18.1 {mEq/l} 10.0-20.0 AGAP) Calcium Level 9.6 mg/dl 8.5-10.5 Total (test code = Calcium Level Total) eGFR (test code = 102 The eGFR i s calculated eGFR) {ML/MIN/1.7} using the CKD-E PI formula. In mos t young, healthyindividu als the eGFR will be >9 0 mL/min/1.73m2. The eGFR declines with a ge. AneGFR of 60-89 may be normal in some population s, particularly th e elderly, forwhom the CKD -EPI formula has not been extensively sharif idated. Use of the eGFR isnot recommended in the following populations:Ind ividuals with unstable c reatinine concentrations, including patient s and those with seri ous co-morbid conditions.Sharmila ents with extremes in mus corbin mass or diet.The roger a above are obtained fr om the National Kidney Disease Education Progr am(NKDEP) which dariela angela recommends that when the eGFR is used in patientswith ex tremes of body mass index for purposes of aracelis g dosing, the eGFR should be multiplied by t he estimated BMI. [facility]] [id number] 17:15:01 Test Item Value Reference Range Interpretation Comments Ferritin Lvl (test code = Ferritin 40 ng/ml 5-204 Lvl) [facility]] HEPATIC FUNCTION [id number] 17:15:01 Test Item Value Reference Range Interpretation Comments Total Protein (test code = 26368-9) 8.1 g/dl 6.4-8.4 Albumin Lvl (test code = 1751-7) 4.1 g/dl 3.5-5.0 Bili Total (test code = 60408-0) 0.3 mg/dl 0.2-1.3 Bilirubin Indirect (test code = 0.2 mg/dl 0.0-1.0 54290-3) Alk Phos (test code = 1783-0) 104 u/l 39-136 AST (test code = 1916-6) 31 u/l 0-37 ALT (test code = 1742-6) 46 u/l 0-65 Globulin (test code = Globulin) 4.0 g/dl 2.7-4.2 A/G Ratio (test code = A/G Ratio) 1.0 0.7-1.6 [facility]] LIPID [id number] 17:15:01 Test Item Value Reference Range Interpretation Comments Chol (test code = Chol) 214 mg/dl <=199 Trig; Above High Threshold (test 374 mg/dl <=149 code = 2571-8) HDL Cholesterol (test code = HDL 70 mg/dl >=61 Cholesterol) CHD Risk (test code = CHD Risk) 3.06 3.90-5.80 LDL (test code = LDL) 69 mg/dl <=99 VLDL (test code = VLDL) 75 [facility]] THYROID [id number] 17:15:01 Test Item Value Reference Range Interpretation Comments TSH (test code = 97072-4) 1.920 {uIU/ml} 0.360-3.740 T3 Uptake (test code = T3 29 % 31-39 Uptake) Thyroxine (test code = 8.6 ug/dL 4.7-13.3 Thyroxine) [facility][H] Free Thyroxine [id number] 17:15:01 Test Item Value Reference Range Interpretation Comments Free Thyroxine Index (test code = Free 2.5 Thyroxine Index) [facility]] URINALYSIS, [id number] 17:15:01 Test Item Value Reference Range Interpretation Comments UA Turbidity (test code = 30195-9) Clear Clear UA Spec Grav (test code = 2965-2) 1.016 <=1.030 UA pH (test code = 2756-5) 7.0 5.0-8.0 UA Protein (test code = 37196-4) Negative Negative UA Glucose (test code = 2349-9) Negative Negative UA Ketones (test code = 38735-4) Negative Negative UA Bili (test code = 73421-4) Negative Negative UA Blood (test code = 798-9) Negative Negative UROBILINOGEN; Above High Threshold 4.0 mg/dl 0.1-1.0 (test code = 52199-0) UA Nitrite; Abnormal (test code = Positive Negative A 84887-4) UA Leuk Est (test code = 83301-8) Negative Negative UA RBC (test code = 49184-7) 1 {/HPF} 0-2 UA WBC (test code = 86639-3) 2 {/HPF} 0-5 UA Bacteria (test code = 630-4) Occasional None Seen UA Sq Epi (test code = 27352-1) Occasional Few UA Color (test code = 53453-3) [place] [facility]] CBC (INCLUDES DIFF/PLT)2017-08-03 17:15:01 Test Item Value Reference Range Interpretation Comments WBC (test code = WBC) 14.1 {K/CMM} 3.7-10.4 RBC (test code = RBC) 3.98 {M/CMM} 4.20-5.40 Hgb (test code = 28680-4) 12.2 g/dl 12.0-16.0 Hct (test code = 4544-3) 37.4 % 36.0-48.0 MCV (test code = MCV) 94.0 fL 80.0-98.0 MCH (test code = MCH) 30.8 pg 27.0-31.0 MCHC (test code = MCHC) 32.8 g/dl 32.0-36.0 RDW (test code = RDW) 17.2 % 11.5-14.5 Platelet (test code = 777-3) 282 {K/CMM} 133-450 Mean Platelet Volume (test code 7.6 fL 7.4-10.4 = Mean Platelet Volume) [facility]] [id number] 17:15:01 Test Item Value Reference Range Interpretation Comments Segmented Neutrophils (test code 63.0 % 45.0-75.0 = 55285-4) Monocytes #; Above High Threshold 1.3 {K/CMM} 0.0-0.8 (test code = 49715-3) Lymphocytes (test code = 26.2 % 20.0-40.0 Lymphocytes) Eosinophils # (test code = 0.2 {K/CMM} 0.0-0.5 09989-8) Basophils # (test code = 20051-1) 0.1 {K/CMM} 0.0-0.2 Segs-Bands #; Above High 8.9 {K/CMM} 1.5-8.1 Threshold (test code = 54114-9) Lymphocytes # (test code = 3.7 {K/CMM} 1.0-5.5 73389-3) RBC Morphology (test code = RBC Normal Morphology) Plt Morphology (test code = Plt Normal Morphology) [facility][QL] HEMOGLOBIN [id number] 17:15:01 Test Item Value Reference Range Interpretation Comments Hemoglobin A1c (test code = 4548-4) 4.1 % <=5.6 [facility]] VITAMIN D, 25-HYDROXY, [id number] 17:15:01 Test Item Value Reference Range Interpretation Comments Vitamin D, 25-OH, 33.4 ng/ml 30.0-100.0 Reference range is based Total (test code on recommen dations in the = Vitamin D, EndocrineSociet y Clinical 25-OH, Total) Practice Guide line (J Clin Endocrinol Upjtu4462;96:19 11-1930) [facility][H] Protein [id number] 17:15:01 Test Item Value Reference Interpretation Comments Range Albumin Percent 57.8 {REL 55.8-66.1 (test code = Albumin %} Percent) Alpha 1 Percent 6.4 {REL %} 2.8-4.9 (test code = Alpha 1 Percent) Alpha 2 Percent 9.8 {REL %} 7.0-11.9 (test code = Alpha 2 Percent) Beta Percent (test 13.0 {REL 7.8-13.7 code = Beta Percent) %} Gamma % (test code = 13.0 {REL 11.1-18.7 Gamma %) %} Albumin (SPE) (test 4.68 g/dl 3.57-5.55 code = Albumin (SPE)) Alpha 1 Globulin 0.52 g/dl 0.18-0.41 (test code = Alpha 1 Globulin) Alpha 2 Globulin 0.79 g/dl 0.45-1.00 (test code = 93576-5) Beta Globulin (test 1.05 g/dl 0.50-1.15 code = Beta Globulin) Gamma Globulin (test 1.05 g/dl 0.71-1.57 code = Gamma Globulin) Total Protein (SPE) 8.1 g/dl 6.4-8.4 (test code = Total Protein (SPE)) SPE Interpretation SEE NOTES Total pro tein is within (test code = SPE the referen ce range. Interpretation) Serum protei n electrophoresis shows an increase in the alpha-1 globulin fracti on. All other globulinf ractions are within the reference ranges. No mono clonal peaks are detec alexys.Serum protein electro phoresis findings are co nsistent with an acuteinflammati on.The electronic medi mihaela record has been review ed for relevanthistory .I have personally revi ewed the test results an d concur with joseph pinto's interpretation. CPT 74357-IFGspetpo aniat Signature José Miguel Maharaj MD 08/07 3:33 PM [facility]
[2022-07-10] MEDS ORDERED: MORPHINE 4 MG/ML SYR ONE (22:51)
[2022-07-11] MEDS ORDERED: HYDROCODONE/APAP 7.5/325 MG TAB ONE (01:12)
--- NOTE | 2022-07-11 01:15 | ER ---
Nurse's Notes [facility] Name: Lianne Medina Age: 51 yrs Sex: Female : 1970 Arrival Date: 07/10/2022 Time: 22:26 Bed IW1 Private MD: Diagnosis: Chest pain, unspecified-left lateral rib pain Presentation: 07/10 22:35 Chief complaint: Patient states: "I bent over and I think I broke a rib.". Ebola vc1 Screen: No symptoms or risks identified at this time. Risk Assessment: Do you want to hurt yourself or someone else? Patient reports no desire to harm self or others. Onset of symptoms was July 07, 2022. 22:35 Method Of Arrival: Wheelchair vc1 22:35 Acuity: BRANDEN 4 vc1 22:46 Coronavirus screen: Vaccine status: Patient reports being unvaccinated. Initial Sepsis vc1 Screen: Does the patient meet any 2 criteria? No. Patient's initial sepsis screen is negative. Does the patient have a suspected source of infection? No. Patient's initial sepsis screen is negative. Triage Assessment: 22:39 General: Appears uncomfortable, Behavior is cooperative. Pain: Complains of pain in mid vc1 back area and left lateral posterior chest Pain does not radiate. Pain currently is 8 out of 10 on a pain scale. Aggravated by increased activity, Deep breaths. Neuro: Level of Consciousness is awake, alert, obeys commands, Oriented to person, place, time, situation, Appropriate for age. Cardiovascular: No deficits noted. Respiratory: Airway is patent Respiratory effort is even, unlabored, Respiratory pattern is regular, symmetrical. GI: No deficits noted. : No deficits noted. Derm: No deficits noted. No signs and/or symptoms reported regarding the dermatologic system. Musculoskeletal: No deficits noted. No signs and/or symptoms reported regarding the musculoskeletal system. 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 - Social history:: Smoking status: Patient reports the use of cigarette tobacco products, smokes two packs cigarettes per day. Screenin:41 Abuse screen: Denies threats or abuse. Nutritional screening: No deficits noted. vc1 Tuberculosis screening: No symptoms or risk factors identified. Fall Risk No fall in past 12 months (0 pts). Assessment: 07/11 01:15 Reassessment: Patient and/or family updated on plan of care and expected duration. Pain vc1 level reassessed. Patient is alert, oriented x 3, equal unlabored respirations, skin warm/dry/pink. Patient states feeling better. Patient states symptoms have improved. Vital Signs: 07/10 22:42 BP 135 / 81; Pulse 81; Resp 20; Temp 98.4; Pulse Ox 90% ; Weight 91.63 kg; Height 5 ft. vc1 0 in. (152.40 cm); 22:46 BP 135 / 81; Pulse 81; Resp 20; Pulse Ox 90% ; vc1 07/11 01:14 Pulse 78; Resp 21; Pulse Ox 92% ; vc1 07/10 22:42 Body Mass Index 39.45 (91.63 kg, 152.40 cm) vc1 ED Course: 07/10 22:26 Patient arrived in ED. [id number] 22:27 Phani Oconnor PA is PHCP. cp 22:27 Barney Ventura MD is Attending Physician. cp 22:37 Triage completed. vc1 22:41 Arm band placed on right wrist. vc1 22:42 Patient has correct armband on for positive identification. vc1 07/11 00:12 XRAY Ribs LEFT In Process Unspecified. EDMS 01:15 No provider procedures requiring assistance completed. Patient did not have IV access vc1 during this emergency room visit. Administered Medications: 07/10 22:49 Not Given (Physician Discretion): HYDROcodone-acetaminophen 10 mg-325 mg 1 tabs PO once cp 22:54 Drug: morphine 4 mg Route: IM; Site: right deltoid; vc1 07/11 01:16 Follow up: Response: No adverse reaction vc1 01:16 Drug: Hydrocodone-Acetaminophen (7.5 mg-325 mg) 1 tabs Route: PO; vc1 01:17 Follow up: Response: Medication administered at discharge. vc1 Medication: 07/10 22:47 VIS not applicable for this client. vc1 Outcome: 07/11 01:15 Discharge ordered by . cp 01:24 Discharged to home via wheelchair. vc1 01:24 Condition: good 01:24 Discharge instructions given to patient, Instructed on discharge instructions, follow up and referral plans. Demonstrated understanding of instructions, follow-up care. 01:25 Patient left the ED. vc1 Signatures: Dispatcher [employer] EDMS Phani Oconnor PA PA cp Jeffries, Jennifer [id number] Akanksha Bird RN RN vc1
--- NOTE | 2022-07-11 01:15 | EDPHYS ---
Physician Documentation [facility] Name: Lianne Medina Age: 51 yrs Sex: Female : 1970 Arrival Date: 07/10/2022 Time: : Bed IW1 Private MD: ED Physician Barney Ventura HPI: 07/10 22:45 This 51 yrs old Female presents to ER via Wheelchair with complaints of Rib Pain. cp 22:45 Patient presents to the emergency department with complaints of left lateral rib pain cp that started earlier today after bending over to pick something up. Patient denies any direct trauma to the area. Patient reports she went to her primary care physician's office and was prescribed hydrocodone for pain. Took a hydrocodone before coming to the emergency room but the pain seemed to get worse.. 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 - Social history:: Smoking status: Patient reports the use of cigarette tobacco products, smokes two packs cigarettes per day. ROS: 22:50 Constitutional: Negative for body aches, chills, fever, poor PO intake. cp 22:50 Eyes: Negative for injury, pain, redness, and discharge. cp 22:50 ENT: Negative for drainage from ear(s), ear pain, sore throat, difficulty swallowing, difficulty handling secretions. 22:50 Cardiovascular: Positive for Left lateral rib chest wall pain. 22:50 Respiratory: Negative for cough, shortness of breath, wheezing. 22:50 Abdomen/GI: Negative for vomiting, diarrhea, constipation, anorexia. 22:50 Back: Negative for decreased range of motion. 22:50 : Negative for urinary symptoms. 22:50 Neuro: Negative for altered mental status, dizziness, headache, numbness, syncope, weakness. 22:50 All other systems are negative. Exam: 22:55 Constitutional: The patient appears in no acute distress, alert, awake, cp non-diaphoretic, non-toxic, well developed, well nourished, obese, uncomfortable. 22:55 Head/Face: Normocephalic, atraumatic. cp 22:55 Eyes: Periorbital structures: appear normal, Conjunctiva: normal, no exudate, no cp injection, Sclera: no appreciated abnormality, Lids and lashes: appear normal, bilaterally. 22:55 ENT: External ear(s): are unremarkable, Nose: is normal, Mouth: Lips: moist, Oral mucosa: pink and intact, moist, Posterior pharynx: Airway: no evidence of obstruction, patent. 22:55 Neck: ROM/movement: is normal, is supple, without pain, no range of motions limitations. 22:55 Chest/axilla: Inspection: normal, Palpation: crepitus, is not appreciated, tenderness, that is severe, of the Left lower lateral rib area. 22:55 Cardiovascular: Rate: normal, Rhythm: regular, Edema: is not appreciated, JVD: is not appreciated. 22:55 Respiratory: the patient does not display signs of respiratory distress, Respirations: labored breathing, is not present, shallow respirations, that is mild, Breath sounds: decreased breath sounds, that are mild, throughout, stridor, is not appreciated, wheezing: is not appreciated. 22:55 Abdomen/GI: Inspection: obese Bowel sounds: active, all quadrants, Palpation: abdomen is soft and non-tender, in all quadrants, rebound tenderness, is not appreciated. 22:55 Back: vertebral tenderness, is not appreciated. 22:55 Neuro: Orientation: to person, place \T\ time. Mentation: is normal, Motor: moves all fours, strength is normal, Sensation: is normal. Vital Signs: 22:42 BP 135 / 81; Pulse 81; Resp 20; Temp 98.4; Pulse Ox 90% ; Weight 91.63 kg; Height 5 ft. vc1 0 in. (152.40 cm); 22:46 BP 135 / 81; Pulse 81; Resp 20; Pulse Ox 90% ; vc1 07/11 01:14 Pulse 78; Resp 21; Pulse Ox 92% ; vc1 07/10 22:42 Body Mass Index 39.45 (91.63 kg, 152.40 cm) vc1 MDM: 07/10 22:48 Patient medically screened. cp 07/11 01:15 Data reviewed: vital signs, nurses notes, radiologic studies, plain films. cp 01:15 Test interpretation: by ED physician or midlevel provider: plain radiologic studies. cp Counseling: I had a detailed discussion with the patient and/or guardian regarding: the historical points, exam findings, and any diagnostic results supporting the discharge/admit diagnosis, radiology results, the need for outpatient follow up, a family practitioner, to return to the emergency department if symptoms worsen or persist or if there are any questions or concerns that arise at home. Response to treatment: the patient's symptoms have markedly improved after treatment, and as a result, I will discharge patient. 07/10 22:41 Order name: XRAY Ribs LEFT cp 07/11 00:33 Order name: Vital Signs; Complete Time: 01:16 cp Administered Medications: 07/10 22:49 Not Given (Physician Discretion): HYDROcodone-acetaminophen 10 mg-325 mg 1 tabs PO once cp 22:54 Drug: morphine 4 mg Route: IM; Site: right deltoid; vc1 07/11 01:16 Follow up: Response: No adverse reaction vc1 01:16 Drug: Hydrocodone-Acetaminophen (7.5 mg-325 mg) 1 tabs Route: PO; vc1 01:17 Follow up: Response: Medication administered at discharge. vc1 Disposition: 07/12 00:33 Co-signature as Attending Physician, Barney Ventura MD. rn Disposition Summary: 07/11/22 01:15 Discharge Ordered Location: Home cp Problem: new cp Symptoms: have improved cp Condition: Stable cp Diagnosis - Chest pain, unspecified - left lateral rib pain cp Followup: cp - With: Private Physician - When: 2 - 3 days - Reason: Recheck today's complaints Discharge Instructions: - Discharge Summary Sheet cp - Chest Wall Pain cp - How to Use an Incentive Spirometer cp Forms: - Medication Reconciliation Form cp - Thank You Letter cp - Antibiotic Education cp - Prescription Opioid Use cp Signatures: Dispatcher [employer] Barney Le MD MD rn Phani Oconnor PA PA cp Calcote, Vanessa RN RN vc1
[2022-07-11 01:33] VITALS: BP 135/81; TEMP 98.4
[2022-07-11 01:42] VITALS: O2SAT 92
--- NOTE | 2022-07-11 17:30 | RAD REPORT ---
EXAM DESCRIPTION: RAD - Ribs Left - 07/11/2022 12:10 am CLINICAL HISTORY: The patient is 51 years old and is Female; left lateral ribs TECHNIQUE: Frontal and oblique views of the left ribs. COMPARISON: No relevant prior studies available. FINDINGS: LUNGS: No visualized focal consolidation, though the lateral aspect of the right hemith orax is nonvisualized. PLEURAL SPACE: No visualized pleural effusion or pneumothorax. HEART: Prominence of the cardiomediastinal silhouette, likely exaggerated secondary to portable te chnique, lordotic positioning, and patient body habitus. MEDIASTINUM: See above. BONES/JOINTS: Unremarkable. No acute fracture. IMPRESSION: No acute osseous abnormality or acute cardiopulmonary abnormality identified. Electronically signed by: Troy Rodriguez MD 07/11/2022 12:24 AM BOBBIN HAULER Due to temporary technical issues with the PACS/Fluency reporting system, reports are being signed by the in house radiologists without review as a courtesy to insure prompt reporting. The interpreting radiologist is fully responsible for the content of the report.
== END 2022-07-11 01:25 | disposition home or self-care (01) ==
LOC: ER 22:20
DX: R07.89 Other chest pain (principal); F17.210 Nicotine dependence, cigarettes, uncomplicated; Z88.0 Allergy status to penicillin; Z88.1 Allergy status to other antibiotic agents; Z88.2 Allergy status to sulfonamides; Z88.5 Allergy status to narcotic agent; Z88.6 Allergy status to analgesic agent; Z88.8 Allergy status to other drugs, medicaments and biological substances
CPT/HCPCS: 96372; 99283

== ENCOUNTER 2022-08-03 19:35 | Observation (INO) | payer OTHER ==
--- OUTSIDE RECORDS SUMMARY | 2022-08-03 19:40 | XMS REPORT | Clinical Summary ---
:1970 Author Organization [facility] MD Driver [facility] Address [address] [place] [address] Care Team Providers Name Role Phone Mingo Street MD Primary Care Provider Nomi Olea MD Unavailable Pedro Comer MD Unavailable Haresh Venegas MD Unavailable Unavailable Magnolia Holden MD Unavailable Prince LOS Schreiber Unavailable Darnell Wellington MD Unavailable Jossue Suresh Unavailable Mingo Street MD Unavailable Margarita Chaves Unavailable Kimber Mendoza MD Unavailable [phone] Allergies Active Allergy Reactions Severity Noted Date [...] 08/20/2021 Per patient thr oat closes up [place] Analogues Other (See Comments) 01/21/2016 Penicillins High [...] Active oxide-protein tablets by complex mouth daily. (Rs-Ewuk-Madcsoh Complex) 133 mg tablet cholecalciferol, Take 2,000 [...] tablet 12 tablet 0 09/16 Discontinued ophen ([place]) 5 by mouth 2 22 (The rapy [...] 01/30/2017 Dysuria 01/30/2017 Tachycardia 01/30/2017 Hypoxia 01/30/2017 detention current use of opiate analgesic 11/01/2016 Post-traumatic [...] Hospital Encounter Radiology AlexCherrie Nipple discharge; U, RE EXAMINER Mastodynia Natalie Mcdonald MD Lau, Bonnie, CRNA 12/16/2021 Travel 12/15/2021 Anesthesia Event Anesthesiology Yolis Agustin, RN 12/15/2021 POEM Appointments Anesthesiology 12/15/2021 Nurse Triage Felicia Cueva RN 12/14/2021 Clinical Support Jenny García C OVID-19 VITA Warren (Primary Dx) 12/14/2021 Travel 12/13/2021 Travel 11/29/2021 Telephone Cancer Prevention Aleksander Venegas, VITA 11/28/2021 Anesthesia Event Anesthesiology Norris Larry RN 11/28/2021 POEM Appointments Anesthesiology 11/16/2021 Orders Only Cancer Prevention Cherrie Johnson Nipple discharge (Primary Dx); U, RE EXAMINER Mastodynia 11/14/2021 Telephone Cancer Prevention Cherrie Johnson U, RE EXAMINER 11/11/2021 Ancillary Procedure Radiology Cherrie Johnson Nippl e discharge; U, RE EXAMINER Mastodynia 11/11/2021 Telephone Cancer Prevention Alex Sindhususan U, RE EXAMINER 11/11/2021 Orders Only Radiology Nicol Matias NP 11/11/2021 Travel 11/03/2021 Telephone Cancer Prevention Alex Sindhususan U, RE EXAMINER 11/03/2021 Telephone Cancer Prevention Aleksander Venegas, VITA 10/28/2021 Orders Only Cancer Prevention Alex Cherrie Nipple discharge (Primary Dx); U, RE EXAMINER Mastodynia 10/25/2021 Telephone Cancer Prevention Aleksander Venegas, VITA 10/24/2021 Telephone Dermatology Lavon Cueto RN 10/18/2021 Telephone Dermatology Lavon Cueto RN 09/26/2021 Consult Dermatology Cathy, Seborrhea capit is (Primary Dx); MD Tigist Psoriasis, not otherwise specified; Intertrigo 09/26/2021 Travel 09/21/2021 Documentation Sesar Clark RN 09/20/2021 Orders Only Cancer Prevention Cherrie Johnson Need fo r personal U, RE EXAMINER care assistance (Primary Dx) 09/16/2021 Clinical Support Breast Undiagnosed Cherrie Johnson U, RE EXAMINER 09/16/2021 Hospital Encounter Radiology Alex Sindhususan Mastod ynia; U, RE EXAMINER Nipple discharg e 09/16/2021 Hospital Encounter Radiology Alex Cherrie Mastod ynia; U, RE EXAMINER Nipple discharg e 09/16/2021 Office Visit Breast Undiagnosed Cherrie Johnson Nipple discharge (Primary Dx); U, RE EXAMINER Mastodynia; Other sign and symptom in breast; Psoriasis, not otherwise specified; Encounter for o ther screening for malignant neoplasm of breast 09/16/2021 NPR Patient Access Services 09/16/2021 Travel 09/14/2021 Telephone Cancer Prevention Cherrie Johnson U, RE EXAMINER 08/26/2021 Orders Only Cancer Prevention Cherrie Johnson (Primary Dx); U, RE EXAMINER Nipple discharg e 08/26/2021 Documentation Alisha Ceron, [...] not otherwise specified; Nausea 08/13/2021 Travel after 08/03/2021 Surgical History Surgery Date Site/Laterality Comments BREAST RECONSTRUCTION RI ESOPHAGOGASTRODUODENOSCOPY 11/02/2016 Esophagus/N/A Pr ocedure: DIAGNOSTIC TRANSORAL DIAGNOSTIC UPPER GASTR OINTESTINAL ENDOSCOPY; Surge on: Apoorva Mane i, MD; Location: MAIN ENDOSCOPY; Servi ce: GASTROENTEROLOGY RI COLONOSCOPY FLX DX W/COLLJ SPEC 11/02/2016 N/A Procedure: DIAGNOSTIC WHEN PFRMD FLEXIBLE COLONOS COPY PROXIMAL TO SPLE DOUG FLEXURE; Surgeon : Apoorva Mane i, MD; Location: MAIN ENDOSCOPY; Servi ce: GASTROENTEROLOGY COLONOSCOPY 07/30/1998 - 07/29/1999 EXPLORATORY LAPAROTOMY [id number] HYSTERECTOMY [id number] UPPER GASTROINTESTINAL ENDOSCOPY 07/30/1998 - 07/29/1999 Medical History Medical History Date Comments Stroke Seizure Myocardial infarction 1998 Hyperlipidemia Irregular heart beat Migraine 1982 Multiple sclerosis 1970 Traumatic brain injury 2273-2136 Allergic rhinitis 8904-4741 Sinusitis 7274-7607 Difficulty talking 2016 Tooth disorder 2012 Swallowing problem 2004 Chronic bronchitis 4901-7797 Asbestosis 7840-6716 Pneumonia 2004 Gastric reflux 1987 Colitis 1998 2separate bailee finney ifferent diagnosis Celiac disease 2006 Malabsorption syndrome 1982 Diverticulitis [id number] Irritable bowel syndrome 1998 Renal stone 1982 History of recurrent urinary tract 1987 infection Urinary incontinence 0055-8286 Sexual dysfunction [id number] Abnormal uterine bleeding unrelated 5957-1602 to menstrual cycle Polycystic ovarian syndrome 1988 Endometriosis 6008-8695 Dr Comer stated en do had traveled to other organs,hips , sp Anemia 2007 Blood transfusion, without reported 1982 Size J, breast total reconstuction diagnosis Osteoporosis 2009 Osteomyelitis 1994 Breake of wrist had to take antibiotics Anxiety 2311-8143 do not have anxiety or panic attacks since 2003 Psoriasis 1967-current Endometrial carcinoma Cancer - Multiple sclerosis 11/27/[address] 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 Bone canc er [email or web address] Hypertension Father Costa Alegria Melanoma Father Costa [...] cancer Paternal Uncle Prashant -Unknown cancer Sister [facility] Graves' disease Sister [facility] Uterine cancer Sister [facility] Vaginal cancer Sister [facility] Relation Name Status Comments Father [...] Height 152.4 cm (5') 09/16/2021 8:24 AM CUPOLA CHARGER Body Mass Index 33.58 09/16/2021 8:24 AM CUPOLA CHARGER Plan of Treatment Date Type Specialty Care Team Description 09/18/2022 Ancillary Procedure Radiology Nichol Ibarra PA [address] [place], [place] [address] (Wo last) 09/18/2022 Office Visit Cancer Prevention Estefany Ibarra PA [address] [place], [place] [address] (Wo rk) 10/02/2022 Follow-Up Dermatology Tala Morgan MD [address] [place], [place] [address] (Wo rk) Health Maintenance Due [...] 1:51 Mastodynia Results for this BILATERAL PM CUPOLA CHARGER Nipple discharge procedure a re in the results section. MAMMO DIGITAL DIAGNOSTIC Routine 09/16/2021 12:38 Mastod ynia Results for this BILATERAL PM CUPOLA CHARGER Nipple discharge procedure a re in the results section. URINALYSIS MICROSCOPIC Routine 08/20/2021 9:29 Re sults for this PM CUPOLA CHARGER procedure are i n the results section. URINALYSIS WITH Now 08/20/2021 9:29 Results f or this MICROSCOPIC IF INDICATED PM CUPOLA CHARGER pro cedure are in the results section. URINE CULTURE Now 08/20/2021 9:29 Results for this PM CUPOLA CHARGER procedure are i n the results section. WOUND CULTURE W/ GRAM Now 08/20/2021 9:14 Res ults for this STAIN PM CUPOLA CHARGER procedure are i n the results section. COVID-19 (SARS-COV-2) Now 08/20/2021 6:51 Res ults for this ASYMPTOMATIC-LT PM CUPOLA CHARGER procedure ar e in the results section. FRACTIONATED BILIRUBIN Now 08/20/2021 6:47 Re sults for this PM CUPOLA CHARGER procedure are i n the results section. TOTAL PROTEIN Now 08/20/2021 6:47 Results for this PM CUPOLA CHARGER procedure are i n the results section. ASPARTATE Now 08/20/2021 6:47 Results for this AMINOTRANSFERASE PM CUPOLA CHARGER procedure a re in the results section. ALANINE AMINOTRANSFERASE Now 08/20/2021 6:47 Results for this PM CUPOLA CHARGER procedure are i n the results section. ALKALINE PHOSPHATASE Now 08/20/2021 6:47 Resu lts for this PM CUPOLA CHARGER procedure are i n the results section. ALBUMIN LEVEL Now 08/20/2021 6:47 Results for this PM CUPOLA CHARGER procedure are i n the results section. CALCIUM LEVEL TOTAL Now 08/20/2021 6:47 Resul ts for this PM CUPOLA CHARGER procedure are i n the results section. .GLOMERULAR FILTRATION Now 08/20/2021 6:47 Re sults for this RATE PM CUPOLA CHARGER procedure are i n the results section. SERUM CREATININE Now 08/20/2021 6:47 Results for this PM CUPOLA CHARGER procedure are i n the results section. ELECTROLYTE PANEL Now 08/20/2021 6:47 Results for this PM CUPOLA CHARGER procedure are i n the results section. BLOOD UREA NITROGEN Now 08/20/2021 6:47 Resul ts for this PM CUPOLA CHARGER procedure are i n the results section. GLUCOSE LEVEL Now 08/20/2021 6:47 Results for this PM CUPOLA CHARGER procedure are i n the results section. MANUAL DIFFERENTIAL Now 08/20/2021 6:47 Resul ts for this PM CUPOLA CHARGER procedure are i n the results section. Results CBC Now 08/20/2021 6:47 Results for this PM CUPOLA CHARGER procedure are i n the results section. LIPASE LEVEL Now 08/20/2021 6:47 Results for this PM CUPOLA CHARGER procedure are i n the results section. AMYLASE LEVEL Now 08/20/2021 6:47 Results for this PM CUPOLA CHARGER procedure are i n the results section. LACTATE DEHYDROGENASE Now 08/20/2021 6:47 Res ults for this PM CUPOLA CHARGER procedure are i n the results section. PHOSPHORUS LEVEL Now 08/20/2021 6:47 Results for this PM CUPOLA CHARGER procedure are i n the results section. MAGNESIUM LEVEL Now 08/20/2021 6:47 Results f or this PM CUPOLA CHARGER procedure are i n the results section. COMPREHENSIVE METABOLIC Now 08/20/2021 6:47 PANEL PM CUPOLA CHARGER COMPLETE BLOOD COUNT W/ Now 08/20/2021 6:47 DIFFERENTIAL PM CUPOLA CHARGER URINALYSIS MICROSCOPIC Routine 08/14/2021 2:18 Re sults for this AM CUPOLA CHARGER procedure are i n the results section. URINE DRUG SCREEN Now 08/14/2021 2:18 Results for this CONFIRMATION AM CUPOLA CHARGER procedure are i n the results section. URINALYSIS WITH Now 08/14/2021 2:18 Results f or this MICROSCOPIC IF INDICATED AM CUPOLA CHARGER pro cedure are in the results section. EKG, 12-LEAD (PORTABLE) STAT 08/14/2021 CT ABDOMEN PELVIS W Routine 08/13/2021 11:01 Resu lts for this CONTRAST PM CUPOLA CHARGER procedure are i n the results section. XR CHEST 1 VW Routine 08/13/2021 9:33 Results for this PM CUPOLA CHARGER procedure are i n the results section. XR ABDOMEN 1 VW PORTABLE Routine 08/13/2021 9:33 Results for this PM CUPOLA CHARGER procedure are i n the results section. CT HEAD WO CONTRAST Routine 08/13/2021 9:26 Resul ts for this PM CUPOLA CHARGER procedure are i n the results section. TMP INTERPRETATION STAT 08/13/2021 8:52 Result s for this ANTIBODY SCREEN NEGATIVE PM CUPOLA CHARGER pro cedure are in the results section. CLOT EXPIRATION DATE STAT 08/13/2021 8:52 Resu lts for this PM CUPOLA CHARGER procedure are i n the results section. FRACTIONATED BILIRUBIN Now 08/13/2021 8:52 Re sults for this PM CUPOLA CHARGER procedure are i n the results section. TOTAL PROTEIN Now 08/13/2021 8:52 Results for this PM CUPOLA CHARGER procedure are i n the results section. ASPARTATE Now 08/13/2021 8:52 Results for this AMINOTRANSFERASE PM CUPOLA CHARGER procedure a re in the results section. ALANINE AMINOTRANSFERASE Now 08/13/2021 8:52 Results for this PM CUPOLA CHARGER procedure are i n the results section. ALKALINE PHOSPHATASE Now 08/13/2021 8:52 Resu lts for this PM CUPOLA CHARGER procedure are i n the results section. ALBUMIN LEVEL Now 08/13/2021 8:52 Results for this PM CUPOLA CHARGER procedure are i n the results section. CALCIUM LEVEL TOTAL Now 08/13/2021 8:52 Resul ts for this PM CUPOLA CHARGER procedure are i n the results section. .GLOMERULAR FILTRATION Now 08/13/2021 8:52 Re sults for this RATE PM CUPOLA CHARGER procedure are i n the results section. SERUM CREATININE Now 08/13/2021 8:52 Results for this PM CUPOLA CHARGER procedure are i n the results section. ELECTROLYTE PANEL Now 08/13/2021 8:52 Results for this PM CUPOLA CHARGER procedure are i n the results section. BLOOD UREA NITROGEN Now 08/13/2021 8:52 Resul ts for this PM CUPOLA CHARGER procedure are i n the results section. GLUCOSE LEVEL Now 08/13/2021 8:52 Results for this PM CUPOLA CHARGER procedure are i n the results section. MANUAL DIFFERENTIAL STAT 08/13/2021 8:52 Resul ts for this PM CUPOLA CHARGER procedure are i n the results section. Results CBC STAT 08/13/2021 8:52 Results for this PM CUPOLA CHARGER procedure are i n the results section. ANTIBODY SCREEN STAT 08/13/2021 8:52 Results f or this PM CUPOLA CHARGER procedure are i n the results section. ABORH STAT 08/13/2021 8:52 Results for this PM CUPOLA CHARGER procedure are i n the results section. CONFIRM ABORH TYPE STAT 08/13/2021 8:52 Result s for this PM CUPOLA CHARGER procedure are i n the results section. HEMOGLOBIN A1C Routine 08/13/2021 8:52 Results fo r this PM CUPOLA CHARGER procedure are i n the results section. THYROID STIMULATING Now 08/13/2021 8:52 Resul ts for this HORMONE PM CUPOLA CHARGER procedure are i n the results section. URIC ACID Now 08/13/2021 8:52 Results for this PM CUPOLA CHARGER procedure are i n the results section. LIPASE LEVEL Now 08/13/2021 8:52 Results for this PM CUPOLA CHARGER procedure are i n the results section. AMYLASE LEVEL Now 08/13/2021 8:52 Results for this PM CUPOLA CHARGER procedure are i n the results section. AMMONIA LEVEL Now 08/13/2021 8:52 Results for this PM CUPOLA CHARGER procedure are i n the results section. TYPE AND SCREEN STAT 08/13/2021 8:52 PM CUPOLA CHARGER APTT Now 08/13/2021 8:52 Results for this PM CUPOLA CHARGER procedure are i n the results section. PROTHROMBIN TIME Now 08/13/2021 8:52 Results for this PM CUPOLA CHARGER procedure are i n the results section. PHOSPHORUS LEVEL Now 08/13/2021 8:52 Results for this PM CUPOLA CHARGER procedure are i n the results section. MAGNESIUM LEVEL Now 08/13/2021 8:52 Results f or this PM CUPOLA CHARGER procedure are i n the results section. COMPREHENSIVE METABOLIC Now 08/13/2021 8:52 PANEL PM CUPOLA CHARGER COMPLETE BLOOD COUNT W/ Now 08/13/2021 8:52 DIFFERENTIAL PM CUPOLA CHARGER COVID-19 (SARS-COV-2) Now 08/13/2021 8:52 Res ults for this ASYMPTOMATIC-LT PM CUPOLA CHARGER procedure ar e in the results section. after 08/03/2021 Results MRI Breast Bilateral with and without [...] subtraction images were gene rated during post-processing. food.deaCAD was used for kinetic assessment. Findings: The [...] agree with the final report. Cherrie Johnson RE EXAMINER IMG MRI ORDERABLES COVID-19 (REENA-CoV-2) PCR Asymptomatic (12/14/2021 3:12 PM CDT) Component Value Ref Range Test Analysis Performed Pathologis t Method Time At Signature COVID19 SARS Pre-Out of OR [place] MD Indication Procedure [facility] COVID19 SARS Not Detected Not [place] MD Result Detected [facility] COVID19 SARS SARS-CoV-2 NOT Detected. [place] Interpretation [facility] Reference Range: Not Detected [facility] Methodology: The Zamorano Real Time SARS-CoV-2 assay is a qualitative real-time reverse foamite mixer polymerase chain reaction (manager cost-PCR) test to detect RNA from SARS-CoV-2 in nasal, nasopharyngeal and oropharyngeal swabs from patients with signs and symptoms of infection who ar e suspected of COVID-19 by their health care provider. The Zamorano RealTime SARS-CoV-2 performed on the [employer] Solar000 System is a dual target assay with [...] high- complexity Molecular Diagnostics Laboratory (MDL) at [facility] under the Food and Drug Administration (FDA) s Emergency Use Authorization. Factsheet for patients: https://www.[facility].org/AbbottFac tSheetPatients Factsheet for healthcare pro viders: https://www.[facility].org/AbbottFactSheetHCP Test performed by: The [facility] Molecular Diagnostic Lab [address] [place] [address] Specimen (Source) Anatomical Collection Method Collection Time Re ceived Time Location / / Volume Laterality Nasopharyngeal Swab 12/14/2021 3:12 12/14 PM CDT 5:24 PM CDT Cherrie Johnson RE EXAMINER MICROBIOLOGY - GENERAL ORDER GERALDO Performing Organization Address City/State/ZIP Code Phon e Number [facility] Unless otherwise noted, [place] [address] ASHLEY all lab tests performed by: Division of Pathology and Laboratory Medicine [address] [facility] US Breast Complete Bilateral (09/16/2021 1:51 PM CUPOLA CHARGER) Anatomical Region Laterality Modality Breast Bilateral Ultrasound Specimen (Source) Anatomical Collection Method Collection Time Re ceived Time Location / / Volume Laterality 09/16/2021 2:20 PM CUPOLA CHARGER Impressions 09/16/2021 2:26 PM CUPOLA CHARGER 1. No suspicious sonographic findings are identified. Recommend clinical management of the patient's breast symptoms and erythema. 2. Left breast 6:00 skin lesion for wh ich clinical correlation and management is recommended. ACR BI-RADS Category: 2. Benign. Recommend annual mammography. Narrative 09/16/2021 2:26 PM CUPOLA CHARGER FULL RESULT: Examination: US BREAST COMPLETE BILATERA [...] Mammography Digital Diagnostic Bilateral (09/16/2021 12:38 PM CUPOLA CHARGER) Anatomical Region Laterality Modality Breast Bilateral Mammography Specimen (Source) Anatomical Collection Method Collection Time Re ceived Time Location / / Volume Laterality 09/16/2021 2:21 PM CUPOLA CHARGER Impressions 09/16/2021 2:21 PM CUPOLA CHARGER 1: Calcifications in both breasts are benign. 2: Bilateral breast symptoms require a dditional imaging evaluation. An ultrasound exam is recommended. BI-RADS Category 0: Incomplete: Needs Additional Imaging Kimi luation Narrative 09/16/2021 2:21 PM CUPOLA CHARGER CLINICAL INDICATION: Patient is a 51 year [...] (ABNORMAL) Urinalysis with Microscopic (08/20/2021 9:29 PM CUPOLA CHARGER)Only the most recent of2 resultswithin the time period is included. athologist Signature UA WBC 5 (H) 0 - 2 /HPF [facility] UA RBC 1 0 - 2 /HPF [facility] UA Mucous NOT SEEN Not [facility] Seen-Trace [facility] UA Bacteria 3+ (A) NOT SEEN [facility] UA Squam Epi OCC None-Occas [facility] ional /[facility] UA CaOx Mandy OCC (A) NOT SEEN [facility] Specimen Anatomical Collection Method Collection Time Receive d Time (Source) Location / / Volume Laterality Urine 08/20/2021 9:29 PM 2 9:34 CUPOLA CHARGER PM CUPOLA CHARGER Narrative [facility] - 2 9:45 PM CUPOLA CHARGER Some reporting parameters within the Urinalysis test have changed due to the implementation of new in strumentation in the Main [place], allowi ng greater sensitivity of measurement. Urinalysis results reported by the [facility] using existing instrumentation, as well as Urinalysis t esting performed manually or by backup methodology at the [facility] [place] will remain relatively unchanged. New reporting parameters and units will now be reported for all campuses. Sheba Salas MD URINE ORDERABLES Performing Organization Address City/State/ZIP Code Phon e Number [facility] MD [facility] Unless otherwise noted, [address] all lab tests performed by: Division of Pathology and Laboratory Medicine [address] (ABNORMAL) Urinalysis w/Microscopic if Indicated (08/20/2021 9:29 PM CUPOLA CHARGER)Only the most recent of2 resultswithin the time period is included. [facility] Method Time Signature UA Color Crystal (A) Straw-Yel [facility] UA Appear Clear Clear [facility] UA Glucose NEG NEG mg/dL [facility] UA Bili NEG NEG [facility] UA Ketones Trace (A) NEG mg/dL [facility] UA Spec Grav 1.005 1.003 - [facility] 1.035 [facility] UA Blood NEG NEG [facility] UA pH 6.0 5.0 - 9.0 [facility] UA Protein NEG NEG mg/dL [facility] UA Urobilinogen POS (A) NEG [facility] UA Nitrite POS (A) NEG [facility] UA Leuk Est NEG NEG [facility] Specimen Anatomical Collection Method Collection Time Receive d Time (Source) Location / / Volume Laterality Urine 08/20/2021 9:29 PM 9:33 CUPOLA CHARGER PM CUPOLA CHARGER Sheba Salas MD URINE ORDERABLES Performing Organization Address City/State/ZIP Code Phon e Number [facility] Unless otherwise noted, [address] all lab tests performed by: Division of Pathology and Laboratory Medicine [address] (ABNORMAL) Urine Culture (08/20/2021 9:29 PM CUPOLA CHARGER) Component Value Ref Test Analysis Performed At [facility] Range Method Time Signature Final Report >= 100,000 cfu/ml [place] Escherichia coli [facility] Path Review - The results have been review ed and electronically signed by Pathologist: [place] Urine Dorothy Bowden MD, PhD #[id number] [facility] Organism Escherichia coli [facility] Specimen Anatomical Collection Method Collection Time Receive d Time (Source) Location / / Volume Laterality Urine 08/20/2021 9:29 08/20/2021 PM CUPOLA CHARGER 10:21 PM CUPOLA CHARGER Organism Antibiotic Method Susceptibility Escherichia coli *VIANNEY [...] Organization Address City/State/ZIP Code Phon e Number [place] [facility] Unless otherwise noted, [place], [place] [id number] [place] [address] all lab tests performed by: Division of Pathology and Laboratory Medicine [address] (ABNORMAL) Wound Culture w/Gram Stain (08/20/2021 9:14 PM CUPOLA CHARGER) Component Value Ref Test Analysis Performed At [facility] Range Method Time Signature Final Report Few Actinobaculum edwardi MELISSA JEFFRIES Normal site kiara present. Normal kiara consists of CANCER Coryneform Bacteria like CENT[facility] R Staphylococcus coagulase negative like and Staphylococcus coagulase negative of a second type. like (A) Path Review The results have been review ed and electronically signed by Pathologist: [place] MD Dorothy Bowden MD, PhD #[id number] [facility] (A) [facility] Gram Stain Moderate WBC's seen MELISSA WESTFALL Report Many Gram Positive Cocci MEHUL SON Many Gram Variable [facility] Specimen Anatomical Collection Method Collection Time Receive d Time (Source) Location / / Volume Laterality Wound (Breast, 08/20/2021 9:14 PM 022 9:26 Left) CUPOLA CHARGER PM CUPOLA CHARGER Comment: swab from under left breast Thomas Peña MD MICROBIOLOGY - GENERAL ORDER GERALDO Performing Organization Address City/State/ZIP Code Phon e Number [facility] Unless otherwise noted, [place] [address] ASHLEY all lab tests performed by: Division of Pathology and Laboratory Medicine [address] [facility] COVID-19 (SARS-CoV-2)Asymptomatic-LT (08/20/2021 6:51 PM CUPOLA CHARGER)Only the most recent of2 resultswithin the time period is included. [facility] Method Time Signature COVID19 Not Detected Not Detected MELISSA WESTFALL (SARS-CoV-2) [facility] COVID19 SARS Inpatient MELISSA WESTFALL Indication Admission [facility] Covid 19 See Note MELISSA WESTFALL Comment [facility] Comment: The quin SARS-CoV-2 nucleic acid test [...] fact sheet for patients provided by the radiology special procedure tech ([employer]) can be reviewed at: https://www.fda.gov/media/941421/khalifloa d. A fact sheet for Health Care providers is provided by the radiology special procedure tech ([employer]) and can be reviewed at: https://www.fda.gov/media/232488/download Results must be interpreted within the c [...] This assay has been authorized by the [facility] for use only under Emergency Use Authorization (EUA) in laboratories that have been CLIA-certified to perform moderate-complexity and high-complexity tests. The Microbiology Laboratory at [facility], CLIA Accreditation #[id number] a [facility] Accreditation #[id number], verified the performance characteristics of this assay. Internal controls are used to monitor all stages of the test process. Specimen (Source) Anatomical Collection Method Collection Time Re ceived Time Location / / Volume Laterality Nasopharyngeal Swab 08/20/2021 6:51 08/20 PM CUPOLA CHARGER 7:24 PM CUPOLA CHARGER Sheba Salas MD MICROBIOLOGY - GENERAL ORDER GERALDO Performing Organization Address City/[facility] Phon e Number [facility] Unless otherwise noted, [address] all lab tests performed by: Division of Pathology and Laboratory Medicine [address] [place] [address] (ABNORMAL) .Serum Creatinine (08/20/2021 6:47 PM CUPOLA CHARGER)Only the most recent of2 resultswithin the time period is included. athologist Signature Creatinine 0.39 (L) 0.51 - 0.95 [facility] mg/dL [facility] Specimen Anatomical Collection Method Collection Time Receive d Time (Source) Location / / Volume Laterality Blood 08/20/2021 6:47 PM 6:57 CUPOLA CHARGER PM CUPOLA CHARGER Sheba Salas MD LAB BLOOD ORDERABLES Performing Organization Address City/[facility] Phon e Number [facility] Unless otherwise noted, [address] all lab tests performed by: Division of Pathology and Laboratory Medicine [address] [place] [address] (ABNORMAL) .CBC (08/20/2021 6:47 PM CUPOLA CHARGER)Only the most recent of2 resultswithin the time period is included. P athologist Signature WBC 12.6 (H) 4.0 - 11.0 [place] K/uL [facility] RBC 4.48 4.00 - [place] MD 5.50 M/uL [facility] Hgb 13.1 12.0 - [place] MD 16.0 gm/dL [facility] Hct 40.6 37.0 - [place] MD 47.0 % [facility] MCV 91 82 - 98 [facility] MCH 29.2 27.0 - [place] MD 31.0 pg [facility] MCHC 32.3 31.0 - [place] 36.0 gm/dL [facility] RDW-SD 54.7 (H) 35.1 - [place] 46.3 fL [facility] RDW-CV 16.5 (H) 12.0 - [place] 15.5 % [facility] Platelet count 202 140 - 440 [place] K/uL [facility] MPV 10.9 (H) 4.0 - 10.4 [facility] INRBC 0.0 <=0.0 % [facility] Comment: The INRBC (instrument NRBC) [...] Laterality Blood 08/20/2021 6:47 PM 2 6:51 CUPOLA CHARGER PM CUPOLA CHARGER Sheba Salas MD LAB BLOOD ORDERABLES Performing Organization Address City/State/ZIP Code Phon e Number [facility] CANCER Unless otherwise noted, [place] [address] [place] all lab tests performed by: Division of Pathology and Laboratory Medicine [address] [place] [address] Glomerular Filtration Rate (08/20/2021 6:47 PM CUPOLA CHARGER)Only the most recent of2 resultswithin the time period is included. athologist Signature eGFR-AA 139 >=60 [facility] mL/min/1.73 [facility] sq. m Comment: Normal eGFR: >= 60 [...] <15 eGFR-CHELSEA 120 >=60 mL/min/1.73 sq. m [place] MD Silver [facility] Comment: Normal eGFR: >= 60 mL/min/1.73 m2 [...] Laterality Blood 08/20/2021 6:47 PM 2 6:57 CUPOLA CHARGER PM CUPOLA CHARGER Sheba Salas MD LAB BLOOD ORDERABLES Performing Organization Address City/State/ZIP Code Phon e Number [facility] CANCER Unless otherwise noted, [place] [address] [place] all lab tests performed by: Division of Pathology and Laboratory Medicine [address] [place] [address] Fractionated Bilirubin (08/20/2021 6:47 PM CUPOLA CHARGER)Only the most recent of2 results within the time period is included. athologist Signature Bili Total 0.4 <=1.2 mg/dL [facility] Comment: Indocyanine Green (ICG) may cause falsel y elevated bilirubin results. Total and direct bilirubin must not be measured from samples containing indocyanine green. False elevation of total bilirubin can b e seen in patients with IgG concentrations above 28 g/L. Bili Direct <0.2 <=0.3 mg/dL [facility] Comment: Indocyanine Green (ICG) may cau se falsely elevated bilirubin results. Total and direct bilirubin must not be measure d from samples containing indocyanine green. Bili Indirect See Note 0.0 - 0.9 mg/dL [place] MD ROSSI KEYA [facility] Comment: Unable to calculate Indirect Bi lirubin result due to some parameters are outside reportable range Specimen Anatomical Collection Method Collection Time Receive d Time (Source) Location / / Volume Laterality Blood 08/20/2021 6:47 PM 6:57 CUPOLA CHARGER PM CUPOLA CHARGER Sheba Salas MD LAB BLOOD ORDERABLES Performing Organization Address City/State/ZIP Code Phon e Number [facility] CANCER Unless otherwise noted, [place] [address] [place] all lab tests performed by: Division of Pathology and Laboratory Medicine [address] (ABNORMAL) Differential (08/20/2021 6:47 PM CUPOLA CHARGER)Only the most recent of2 results within the time period is included. athologist Signature Neutrophil % 77.8 (H) 42.0 - [facility] 66.0 % [facility] Lymphocyte % 15.8 (L) 24.0 - [facility] 44.0 % [facility] Monocyte % 5.5 2.0 - 7.0 [facility] % [facility] Eosinophil % 0.1 (L) 1.0 - 4.0 [facility] % [facility] Basophil % 0.3 0.0 - 1.0 [facility] IGRE % 0.5 (H) 0.0 - 0.4 [facility] % [facility] Comment: IGRE % count includes Metamyelo cytes, Myelocytes, and Promyelocytes. Neutrophil Abs 9.84 (H) 1.70 - 7.30 K/uL [facility] Lymphocyte Abs 1.99 1.00 - 4.80 K/uL [facility] Monocyte Abs 0.69 0.08 - 0.70 K/uL [place] [facility] ROSSI [facility] Eosinophil Abs 0.01 (L) 0.04 - 0.40 K/uL [facility] Basophil Abs 0.04 0.00 - 0.10 K/uL [place] [facility] ROS[facility] IG Abs 0.06 (H) 0.00 - 0.04 K/uL [place] MD STERLING Tatum [facility] Specimen Anatomical Collection Method Collection Time Receive d Time (Source) Location / / Volume Laterality Blood 08/20/2021 6:47 PM 2 6:51 CUPOLA CHARGER PM CUPOLA CHARGER Sheba Salas MD LAB BLOOD ORDERABLES Performing Organization Address City/[facility] Phon e Number [facility]CER Unless otherwise noted, [address] all lab tests performed by: Division of Pathology and Laboratory Medicine [address] (ABNORMAL) BUN (08/20/2021 6:47 PM CUPOLA CHARGER)Only the most recent of2 resultswithin the time period is included. athologist Signature BUN <4 (L) 6 - 23 [facility] mg/dL [facility] Specimen Anatomical Collection Method Collection Time Receive d Time (Source) Location / / Volume Laterality Blood 08/20/2021 6:47 PM 2 6:57 CUPOLA CHARGER PM CUPOLA CHARGER Sheba Salas MD LAB BLOOD ORDERABLES Performing Organization Address [facility] Phon e Number [facility]CER Unless otherwise noted, [address] all lab tests performed by: Division of Pathology and Laboratory Medicine [address] ALT (08/20/2021 6:47 PM CUPOLA CHARGER)Only the most recent of2 resultswithin the time period is included. athologist Signature ALT 22 <=33 U/L [facility] Specimen Anatomical Collection Method Collection Time Receive d Time (Source) Location / / Volume Laterality Blood 08/20/2021 6:47 PM 2 6:57 CUPOLA CHARGER PM CUPOLA CHARGER Sheba Salas MD LAB BLOOD ORDERABLES Performing Organization Address City/[facility] Phon e Number [facility] Unless otherwise noted, [address] all lab tests performed by: Division of Pathology and Laboratory Medicine [address] Aspartate Aminotransferase (08/20/2021 6:47 PM CUPOLA CHARGER)Only the most recent of2 resultswithin the time period is included. athologist Signature AST 27 <=32 U/L [facility] Comment: Specimen is hemolyzed. Results may be falsely elevated. Repeat test if needed. Specimen Anatomical Collection Method Collection Time Receive d Time (Source) Location / / Volume Laterality Blood 08/20/2021 6:47 PM 2 6:57 CUPOLA CHARGER PM CUPOLA CHARGER Sheba Salas MD LAB BLOOD ORDERABLES Performing Organization Address City/[facility]/ZIP [facility] Phon e Number [facility] CANCER Unless otherwise noted, [address] all lab tests performed by: Division of Pathology and Laboratory Medicine [address] Total Protein (08/20/2021 6:47 PM CUPOLA CHARGER)Only the most recent of2 resultswithin the time period is included. P athologist Signature Total Protein 7.4 6.4 - 8.3 [facility] g/dL [facility] Specimen Anatomical Collection Method Collection Time Receive d Time (Source) Location / / Volume Laterality Blood 08/20/2021 6:47 PM 2 6:57 CUPOLA CHARGER PM CUPOLA CHARGER Sheba Salas MD LAB BLOOD ORDERABLES Performing Organization Address City/[facility] Phon e Number [facility] CANCER Unless otherwise noted, [address] all lab tests performed by: Division of Pathology and Laboratory Medicine [address] Phosphorus Level (08/20/2021 6:47 PM CUPOLA CHARGER)Only the most recent of2 resultswithin the time period is included. P athologist Signature Phosphorus 3.4 2.5 - 4.5 [facility] mg/dL [facility] Specimen Anatomical Collection Method Collection Time Receive d Time (Source) Location / / Volume Laterality Blood 08/20/2021 6:47 PM 2 6:57 CUPOLA CHARGER PM CUPOLA CHARGER Sheba Salas MD LAB BLOOD ORDERABLES Performing Organization Address City/[facility] Phon e Number [facility]CER Unless otherwise noted, [address] all lab tests performed by: Division of Pathology and Laboratory Medicine [address] Alkaline Phosphatase (08/20/2021 6:47 PM CUPOLA CHARGER)Only the most recent of2 results within the time period is included. P athologist Signature Alk Phos 91 35 - 104 [facility] U/L [facility] Specimen Anatomical Collection Method Collection Time Receive d Time (Source) Location / / Volume Laterality Blood 08/20/2021 6:47 PM 2 6:57 CUPOLA CHARGER PM CUPOLA CHARGER Sheba Salas MD LAB BLOOD ORDERABLES Performing Organization Address [facility] Phon e Number [facility]CER Unless otherwise noted, [address] all lab tests performed by: Division of Pathology and Laboratory Medicine [address] Magnesium Level (08/20/2021 6:47 PM CUPOLA CHARGER)Only the most recent of2 resultswithin the time period is included. athologist [facility] Magnesium 1.7 1.6 - 2.6 [facility] mg/dL [facility] Specimen Anatomical Collection Method Collection Time Receive d Time (Source) Location / / Volume Laterality Blood 08/20/2021 6:47 PM 2 6:57 CUPOLA CHARGER PM CUPOLA CHARGER Sheba Salas MD LAB BLOOD ORDERABLES Performing Organization Address [facility] Phon e Number [facility] CANCER Unless otherwise noted, [address] all lab tests performed by: Division of Pathology and Laboratory Medicine [address] Lipase (08/20/2021 6:47 PM CUPOLA CHARGER)Only the most recent of2 resultswithin the time period is included. athologist [facility] Lipase Lvl 24 13 - 60 U/L [facility] Specimen Anatomical Collection Method Collection Time Receive d Time (Source) Location / / Volume Laterality Blood 08/20/2021 6:47 PM 2 6:57 CUPOLA CHARGER PM CUPOLA CHARGER Sheba Salas MD LAB BLOOD ORDERABLES Performing Organization Address City/[facility] Phon e Number [facility] CANCER Unless otherwise noted, [address] all lab tests performed by: Division of Pathology and Laboratory Medicine [address] (ABNORMAL) LDH (08/20/2021 6:47 PM CUPOLA CHARGER) athologist Signature LDH 355 (H) 135 - 214 [facility] U/L [facility] Comment: Specimen is hemolyzed. Results may be fa lsely elevated. Repeat test if needed. Results greater than 1651 U/L may not be reliable due to matrix effect with extended dilution as it exceeds the radiology special procedure tech s recommended limit. Caution should be exercised when interpreting such sharif ues and done in conjunction with clinica l context. Specimen Anatomical Collection Method Collection Time Receive d Time (Source) Location / / Volume Laterality Blood 08/20/2021 6:47 PM 2 6:57 CUPOLA CHARGER PM CUPOLA CHARGER Sheba Salas MD LAB BLOOD ORDERABLES Performing Organization Address City/State/ZIP [facility] Phon e Number [facility] CANCER Unless otherwise noted, [address] all lab tests performed by: Division of Pathology and Laboratory Medicine [address] Glucose Level (08/20/2021 6:47 PM CUPOLA CHARGER)Only the most recent of2 resultswithin the time period is included. athologist Signature Glucose Level 96 70 - 99 [facility] mg/dL [facility] Comment: Effective 02/23/16, the glucose reference intervals have been updated based on [employer] guidelines (Standards of Medical Care [...] Laterality Blood 08/20/2021 6:47 PM 2 6:57 CUPOLA CHARGER PM CUPOLA CHARGER Sheba Salas MD LAB BLOOD ORDERABLES Performing Organization Address City/State/ZIP Code Phon e Number [facility] CANCER Unless otherwise noted, [address] all lab tests performed by: Division of Pathology and Laboratory Medicine [address] Calcium Level (08/20/2021 6:47 PM CUPOLA CHARGER)Only the most recent of2 resultswithin the time period is included. athologist Signature Calcium Lvl 8.9 8.4 - 10.2 [facility] mg/dL [facility] Specimen Anatomical Collection Method Collection Time Receive d Time (Source) Location / / Volume Laterality Blood 08/20/2021 6:47 PM 2 6:57 CUPOLA CHARGER PM CUPOLA CHARGER Sheba Salas MD LAB BLOOD ORDERABLES Performing Organization Address City/[facility]/ZIP [facility] Phon e Number [facility] CANCER Unless otherwise noted, [address] all lab tests performed by: Division of Pathology and Laboratory Medicine [address] (ABNORMAL) Amylase (08/20/2021 6:47 PM CUPOLA CHARGER)Only the most recent of2 results within the time period is included. P athologist Signature Amylase Lvl 19 (L) 28 - 100 [facility] U/L [facility] Specimen Anatomical Collection Method Collection Time Receive d Time (Source) Location / / Volume Laterality Blood 08/20/2021 6:47 PM 2 6:57 CUPOLA CHARGER PM CUPOLA CHARGER Sheba Salas MD LAB BLOOD ORDERABLES Performing Organization Address [facility] Phon e Number [facility] Unless otherwise noted, [address] all lab tests performed by: Division of Pathology and Laboratory Medicine [address] Albumin Level (08/20/2021 6:47 PM CUPOLA CHARGER)Only the most recent of2 resultswithin the time period is included. athologist Signature Albumin Lvl 4.0 3.5 - 5.2 [facility] gm/dL [facility] Specimen Anatomical Collection Method Collection Time Receive d Time (Source) Location / / Volume Laterality Blood 08/20/2021 6:47 PM 2 6:57 CUPOLA CHARGER PM CUPOLA CHARGER Sheba Salas MD LAB BLOOD ORDERABLES Performing Organization Address City/[facility] Phon e Number [facility] CANCER Unless otherwise noted, [address] all lab tests performed by: Division of Pathology and Laboratory Medicine [address] (ABNORMAL) Electrolyte Panel (08/20/2021 6:47 PM CUPOLA CHARGER)Only the most recent of2 resultswithin the time period is included. P athologist Signature Sodium Lvl 128 (L) 136 - 145 [facility] mEq/L [facility] Potassium Lvl 4.2 3.5 - 5.1 [facility] mEq/L [facility] Comment: Specimen is hemolyzed. Results may be falsely elevated. Repeat test if needed. Chloride 91 (L) 98 - 107 mEq/L [facility] CO2 19 (L) 22 - 29 mEq/L [facility] C [email or web address] Anion Gap 18 (H) 4 - 14 mEq/L [facility] Specimen Anatomical Collection Method Collection Time Receive d Time (Source) Location / / Volume Laterality Blood 08/20/2021 6:47 PM 2 6:57 CUPOLA CHARGER PM CUPOLA CHARGER Sheba Salas MD LAB BLOOD ORDERABLES Performing Organization Address City/State/ZIP Code Phon e Number [facility] Unless otherwise noted, [place] [address] [place] all lab tests performed by: Division of Pathology and Laboratory Medicine [address] (ABNORMAL) Urine Drug Screen STAT, Qualitative, Without Confirmation (08/14/2021 2:18 AM CUPOLA CHARGER) [facility] gist Method Time Signature U Amph Scr Negative Negative [facility] U Corie Scr Negative Negative [facility] U Benzodia Scr Positive (A) Negative [facility] U Cannab Scr Negative Negative [facility] U Cocaine Scr Negative Negative [facility] U Methadone Negative Negative [facility] U Opiate Scr Positive (A) Negative [facility] U PCP Scr Negative Negative [facility] U Propoxyphene Negative Negative [facility] Comment: Drugs reported as positive [...] ng/mL Urine alcohol 20 ng/mL Performing Site: [facility], [facility], [address], [place], [address]. Specimen Anatomical Collection Method Collection Time Receive d Time (Source) Location / / Volume Laterality Urine 08/14/2021 2:18 AM 2 3:21 CUPOLA CHARGER AM CUPOLA CHARGER Osvaldo Vidal MD URINE ORDERABLES Performing Organization Address City/State/ZIP Code Phon e Number [facility] CANCER Unless otherwise noted, [place] [address] CENTER all lab tests performed by: Division of Pathology and Laboratory Medicine [address] EKG, 12-Lead (Portable) (08/14/2021) Specimen (Source) Anatomical Location Collection Method / Collectio n Time Received Time / Laterality Volume Narrative This result has an attachment that is no t available. Osvaldo Vidal MD ECG ORDERABLES Performing Organization Address City/State/ZIP Code Phon e Number [facility] CT Abdomen Pelvis with Contrast (08/13/2021 11:01 PM CUPOLA CHARGER) Anatomical Region Laterality Modality Abdomen, Pelvis Computed Tomography Specimen (Source) Anatomical Collection Method Collection Time Re ceived Time Location / / Volume Laterality 08/13/2021 11:35 PM CUPOLA CHARGER Impressions 08/14/2021 8:21 AM CUPOLA CHARGER 1. Small focus of gas in the [...] the final report. Narrative 08/14/2021 8:21 AM CUPOLA CHARGER FULL RESULT: Examination: CT ABDOMEN PELVIS W CONTRAS T, 08/13/2021 11:01 PM Clinical History: History of endometrios is, status post hysterectomy and bilateral salpingooophorectomy Chronic pain Moderate dehydration Tobacco dependence syndrome Personality disorder Abdominal pain Indication:. The patient presented to [facility] emergency room with acute abdominal pain and [...] Abdominal pain Indication:. The patient presented to [facility] emergency room with acute abdominal pain and [...] X-ray Chest 1 View (08/13/2021 9:33 PM CUPOLA CHARGER) Anatomical Region Laterality Modality Chest Digital Radiography Specimen (Source) Anatomical Collection Method Collection Time Re ceived Time Location / / Volume Laterality 08/13/2021 9:59 PM CUPOLA CHARGER Impressions 08/13/2021 10:01 PM CUPOLA CHARGER Intact chest with no consolidations or lobar pneumonia and no significant change compared to topogram chest January 30, 2017. Narrative 08/13/2021 10:01 PM CUPOLA CHARGER FULL RESULT: Examination: XR CHEST 1 VW, [...] Abdomen 1 View Portable (08/13/2021 9:33 PM CUPOLA CHARGER) Anatomical Region Laterality Modality Abdomen Digital Radiography Specimen (Source) Anatomical Collection Method Collection Time Re ceived Time Location / / Volume Laterality 08/13/2021 10:16 PM CUPOLA CHARGER Impressions 08/14/2021 7:30 AM CUPOLA CHARGER No radiographic evidence of intestinal obstruction. I personally reviewed these image(s) gagan ng with the resident's/fellow's interpretations, certify that if a procedure was performed I was physically present, and agree with the final report. Narrative 08/14/2021 7:30 AM CUPOLA CHARGER FULL RESULT: Examination: XR ABDOMEN 1 VW [...] CT Head without Contrast (08/13/2021 9:26 PM CUPOLA CHARGER) Anatomical Region Laterality Modality Head Computed Tomography Specimen (Source) Anatomical Collection Method Collection Time Re ceived Time Location / / Volume Laterality 08/13/2021 9:31 PM CUPOLA CHARGER Impressions 08/13/2021 10:27 PM CUPOLA CHARGER No acute intracranial abnormality. I personally reviewed these image(s) gagan ng with the resident's/fellow's interpretations, certify that if a procedure was performed I was physically present, and agree with the final report. Narrative 08/13/2021 10:27 PM CUPOLA CHARGER FULL RESULT: EXAMINATION: CT HEAD WO CONTRAST [...] Orbital contents are symmetric. Procedure Note Rocco Tirado MD - 08/13/2021 FULL RESULT: EXAMINATION: CT [...] ORDERABLES Clot Expiration Date (08/13/2021 8:52 PM CUPOLA CHARGER) [facility] Method Time Signature T & S 08/16/2021 [facility] Specimen Anatomical Collection Method Collection Time Receive d Time (Source) Location / / Volume Laterality Blood 08/13/2021 8:52 PM 9:36 CUPOLA CHARGER PM CUPOLA CHARGER Osvaldo Vidal MD BLOOD BANK TEST ORDERABLES Performing Organization Address City/State/ZIP Code Phon e Number [facility] CANCER Unless otherwise noted, [place] [address] [place] all lab tests performed by: Division of Pathology and Laboratory Medicine [address] [place] [address] TMP Interpretation Antibody Screen Negative (08/13/2021 8:52 PM CUPOLA CHARGER) [facility] Method Time Signature TMP Auto Neg At the [facility] patient plasma shows no evidence of RBC alloantibodi es. Comment: ANGELA LANDRY MD - [id number] Dictated by: ANGELA LANDRY MD - 1200 [id number] Dictated Date/Time: 08.14.2021 9:[address] Transcribed Date/Time: 08.14.2021 9:00 AM CUPOLA CHARGER Electronically Signed By: ANGELA WINTER MD - [id number] on 08.14.2021 9:00 AM C Specimen Anatomical Collection Method Collection Time Receive d Time (Source) Location / / Volume Laterality Blood 08/13/2021 8:52 PM 2 9:36 CUPOLA CHARGER PM CUPOLA CHARGER Osvaldo Vidal MD BLOOD BANK TEST ORDERABLES Performing Organization Address City/[facility]/ZIP Code Phon e Number [facility] CANCER Unless otherwise noted, [address] all lab tests performed by: Division of Pathology and Laboratory Medicine [facility] [place] Confirm ABORh (08/13/2021 8:52 PM CUPOLA CHARGER) athologist Signature ABORh Confirm. A POS [facility] Specimen Anatomical Collection Method Collection Time Receive d Time (Source) Location / / Volume Laterality Blood 08/13/2021 8:52 PM 2 CUPOLA CHARGER 11:00 PM CUPOLA CHARGER Osvaldo Vidal MD BLOOD BANK TEST ORDERABLES Performing Organization Address City/[facility]/ZIP Code Phon e Number [facility] CANCER Unless otherwise noted, [address] all lab tests performed by: Division of Pathology and Laboratory Medicine [address] [place] aPTT (08/13/2021 8:52 PM CUPOLA CHARGER) athologist Signature aPTT 32.8 24.7 - 36.8 [facility] Specimen Anatomical Collection Method Collection Time Receive d Time (Source) Location / / Volume Laterality Blood 08/13/2021 8:52 PM 2 8:58 CUPOLA CHARGER PM CUPOLA CHARGER Osvaldo Vidal MD LAB BLOOD ORDERABLES Performing Organization Address City/State/ZIP Code Phon e Number [facility] CANCER Unless otherwise noted, [address] all lab tests performed by: Division of Pathology and Laboratory Medicine [address] [place] ABORh (08/13/2021 8:52 PM CUPOLA CHARGER) athologist Signature ABORh. A POS [facility] Specimen Anatomical Collection Method Collection Time Receive d Time (Source) Location / / Volume Laterality Blood 08/13/2021 8:52 PM 01/15/202 2 9:36 CUPOLA CHARGER PM CUPOLA CHARGER Osvaldo Vidal MD BLOOD BANK TEST ORDERABLES Performing Organization Address City/[facility]/ZIP Code Phon e Number [facility] CANCER Unless otherwise noted, [address] all lab tests performed by: Division of Pathology and Laboratory Medicine [address] [place] Prothrombin Time with INR (08/13/2021 8:52 PM CUPOLA CHARGER) athologist [facility] PT 13.1 11.5 - 13.9 [facility](s) [facility] INR 1.08 0.90 - 1.10 [facility] Specimen Anatomical Collection Method Collection Time Receive d Time (Source) Location / / Volume Laterality Blood 08/13/2021 8:52 PM 2 8:58 CUPOLA CHARGER PM CUPOLA CHARGER Osvaldo Vidal MD LAB BLOOD ORDERABLES Performing Organization Address City/[facility] Code Phon e Number [facility] CANCER Unless otherwise noted, [address] all lab tests performed by: Division of Pathology and Laboratory Medicine [facility] [place] Antibody Screen (08/13/2021 8:52 PM CUPOLA CHARGER) athologist [facility] ABSC. Negative ABSC [facility] Specimen Anatomical Collection Method Collection Time Receive d Time (Source) Location / / Volume Laterality Blood 08/13/2021 8:52 PM 2 9:36 CUPOLA CHARGER PM CUPOLA CHARGER Osvaldo Vidal MD BLOOD BANK TEST ORDERABLES Performing Organization Address City/[facility]/ZIP Code Phon e Number [facility] CANCER Unless otherwise noted, [address] all lab tests performed by: Division of Pathology and Laboratory Medicine [address] [place] Uric Acid (08/13/2021 8:52 PM CUPOLA CHARGER) athologist [facility] Uric Acid 4.9 2.4 - 5.7 [facility] mg/dL [facility] Specimen Anatomical Collection Method Collection Time Receive d Time (Source) Location / / Volume Laterality Blood 08/13/2021 8:52 PM 2 9:01 CUPOLA CHARGER PM CUPOLA CHARGER Osvaldo Vidal MD LAB BLOOD ORDERABLES Performing Organization Address City/State/ZIP Code Phon e Number [facility] CANCER Unless otherwise noted, [address] all lab tests performed by: Division of Pathology and Laboratory Medicine [address] [place], [place] [address]d TSH (08/13/2021 8:52 PM CUPOLA CHARGER) athologist Signature TSH 0.62 0.27 - 4.20 [facility] mcunit/mL [facility] Specimen Anatomical Collection Method Collection Time Receive d Time (Source) Location / / Volume Laterality Blood 08/13/2021 8:52 PM 2 9:01 CUPOLA CHARGER PM CUPOLA CHARGER Osvaldo Vidal MD LAB BLOOD ORDERABLES Performing Organization Address City/[facility]/ZIP [facility] Phon e Number [facility] CANCER Unless otherwise noted, [address] all lab tests performed by: Division of Pathology and Laboratory Medicine [address] [place] [address] Hemoglobin A1c (08/13/2021 8:52 PM CUPOLA CHARGER) athologist [facility] A1C <4.3 4.3 - 5.6 % [facility] Comment: HbA1c values >=6.5% are diagnostic of di abetes mellitus. Diagnosis should be confirmed by repeat testing. Therapeutic Action suggested: >8.0% HbA1 c; Goal of therapy: <7.0% HbA1c Specimen Anatomical Collection Method Collection Time Receive d Time (Source) Location / / Volume Laterality Blood 08/13/2021 8:52 PM 2 8:58 CUPOLA CHARGER PM CUPOLA CHARGER Osvaldo Vidal MD LAB BLOOD ORDERABLES Performing Organization Address City/[facility]/ZIP Code Phon e Number [facility] CANCER Unless otherwise noted, [address] all lab tests performed by: Division of Pathology and Laboratory Medicine [address] [place] [address] Ammonia Level (08/13/2021 8:52 PM CUPOLA CHARGER) athologist [facility] Ammonia 29 11 - [facility]L [facility] Specimen Anatomical Collection Method Collection Time Receive d Time (Source) Location / / Volume Laterality Blood 08/13/2021 8:52 PM 2 8:59 CUPOLA CHARGER PM CUPOLA CHARGER Osvaldo Vidal MD LAB BLOOD ORDERABLES Performing Organization Address City/State/ZIP Code Phon e Number [facility] Unless otherwise noted, [place] [address] [address] all lab tests performed by: Division of Pathology and Laboratory Medicine [facility] [place] after 08/03/2021 Insurance Payer Benefit Plan / Subscriber ID Effective Dates Phone Addre ss Type Group [employer] [id number] 2015-Neto [address] P[employer] [place] [address] [phone] [id number] (Work) Lianne Medina Personal/Family Self 1970 [id number] [place] [phone] Lianne Medina Personal/Family Self 1970 [id number] [phone] Advance Directives Code Status Date Activated Date Inactivated Comments Full Code 08/13/2021 11:31 PM 08/14/2021 11:37 AM Code Status Date Activated Date Inactivated Comments Full Code 01/30/2017 9:39 PM 01/31/2017 3:59 PM Full Code 10/31/2016 4:56 AM 11/04/2016 5:01 PM Full Code 04/10/2016 10:29 PM 04/12/2016 5:58 PM Care Teams 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 Relationship Specialty Start Date End Date [address] MD PCP - General 09/29/15 [facility] [place] [address] Nomi Olea, PCP - External Follow Up 04/03/14 MD Silver [address] [facility] [address] [place] [address] Pedro Comer, PCP - External Follow Up 04/20/14 MD Humphrey [address] [facility] [address] [place] [address] Kimber Mendzoa PCP - External Follow Up Internal Medicine 10/28 09/20 MD Haim [address] Henderson [address] [place] [id number] Haresh Venegas MD Nurse Practitioner 10/06/15 Magnolia Holden MD Physician 10/06/[address] [place] [id number] Prince Schreiber NP Nurse Practitioner 10/06/[address] [place] [id number] Darnell Wellington MD Physician 10/06/[address] [place] [id number] Jossue Suresh PA Physician Restaurant Supervisor 10/06/[address] [place] [address] MD Physician 10/06/[address] [place] [id number] Margarita Chaves PA Physician Restaurant Supervisor 10/06/[address] [place] [id number]
--- OUTSIDE RECORDS SUMMARY | 2022-08-03 19:50 | XMS REPORT | Continuity of Care Document ---
:1970 Author Organization [facility] t Address [address] [place] [address] Care Team Providers Name Role Phone Nomi Grimm MD Primary Care Physician KIMBER MENDOZA Attending Clinician Unavailable NOMI GRIMM Attending Clinician Unavailable JOHN FERRELL Attending Clinician Unavailable ANATOLY ALVARADO Attending Clinician Unavailable AKHIL MCBRIDE Attending Clinician Unavailable [id number] Attending Clinician Unavailable PLAB Attending Clinician Unavailable ARAMIS ALVAREZ Attending Clinician Unavailable ARAMIS ALVAREZ Attending Clinician Unavailable LAB90 Attending Clinician Unavailable KOFI RANGEL Attending Clinician Unavailable Aramis Alvarez MD Attending Clinician PARKER TAMAYO Attending Clinician Unavailable Kimber Mendoza MD Attending Clinician [phone] Anesthesiology Attending Clinician Unavailable Doctor Unassigned, [place] Attending Clinician Unavailable Pcp, Palliative Care Attending Clinician Unavailable MARK ANTHONY SALOMON Attending Clinician Unavailable Aime WESTFALL, Mark Anthony Attending Clinician Timmy MADISON, Cris Attending Clinician Pob, Adc Lab Main Attending Clinician Unavailable Evgeny MIGUEL, Felicia Muse Attending Clinician Silvia GORMNA, Jojo Galindo Attending Clinician NENITA HARRY Attending Clinician Unavailable Nona WESTFALL, Sherrie Duarte Attending Clinician [phone] Nenita Harry MD Attending Clinician Neo Gandara MD Attending Clinician CRIS WARNER Attending Clinician Unavailable Libby Irving MD Attending Clinician KIMBERLYN BOTELLO Attending Clinician Unavailable Lizett WESTFALL, Kimberlyn Dominguez Attending Clinician ELLEN REYES Attending Clinician Unavailable Ellen Reyes PA-C Attending Clinician Fco GORMAN, Phani Attending Clinician Unavailable Cherrie Johnson APN Attending Clinician Natalie Mcdonald MD Attending Clinician Kassidy Wheeler CRNA Attending Clinician Yolis Agustin RN Attending Clinician Unavailable Felicia Cueva RN Attending Clinician Unavailable Jenny Aiken RN Attending Clinician Unavailable LIBBY IRVING Attending Clinician Unavailable Aleksander Venegas RN Attending Clinician Norris Larry RN Attending Clinician Unavailable Curits Amador MD Attending Clinician CURTIS AMADOR Attending Clinician Unavailable NELY MOORE Attending Clinician Unavailable Nely Colon Attending [facility] Attending Clinician Unavailable Seema Tanner Attending Clinician Shorty WESTFALL, Sherrie Attending Clinician Florencio BLACKSMITH HAMMER OPERATOR, Nicol Dominguez Attending Clinician Lab, Ang - Db Attending Clinician Unavailable Darrel SHAHID, Miguel Ángel Attending Clinician MIGUEL ÁNGEL DEL TORO Attending Clinician Unavailable Nory RN, Lavon Attending Clinician Unavailable Carlyle WESTFALL, Dimitri Attending Clinician Cathy WESTFALL, Tigist Attending Clinician Amber GORMAN, Sesar Chopra Attending Clinician Unavailable Osmany GORMAN, Alisha Baca Attending Clinician Tameka BLACKSMITH HAMMER OPERATOR, Blanca Attending Clinician Casey WESTFALL, Thomas Attending Clinician THOMAS PEÑA Attending Clinician Unavailable Marita WESTFALL, Fernando Carlson Attending Clinician Unavailable Jennifer Maher RN Attending Clinician Dominga Villalobos MD Attending Clinician Osvaldo Vidal MD Attending Clinician Bev John MA Attending Clinician Unavailable Jayla Roblero RN Attending Clinician Unavailable ERIKA Attending Clinician Unavailable Bryson GORMAN, Luz Attending Clinician Unavailable Mira Garcia RN Attending Clinician Unavailable Carlos GORMAN, Randee Attending Clinician Unavailable Tiffany Moscoso RN Attending Clinician Unavailable Fani Hartley RN Attending Clinician Unavailable Tram Alonso RN Attending Clinician Unavailable Selam Gómez RN Attending Clinician Unavailable Dulce Maria GORMAN, Beba Attending Clinician Unavailable Natalya Toribio RN Attending Clinician Unavailable Sendy Aguilar RN Attending Clinician Unavailable Curtis Eric RN Attending Clinician Unavailable Yari Potter RN Attending Clinician Unavailable Mira Celeste RN Attending Clinician Unavailable Danielle Lagos RN Attending Clinician Unavailable NOMI GRIMM M.D. Attending Clinician Unavailable KIMBER MENDOZA Admitting Clinician Unavailable Kimber Mendoza MD Admitting Clinician [phone] NENITA HARRY Admitting Clinician Unavailable Nenita Harry MD Admitting Clinician KIMBERLYN BOTELLO Admitting Clinician Unavailable NELY MOORE Admitting Clinician Unavailable DOMINGA VILLALOBOS Admitting Clinician Unavailable ERIKA Admitting Clinician Unavailable Payers Payer Name Policy Type Policy Number Effective Date Expiration Date Alberto gautam [facility] [id number] 2015 PPO/POS 00:00:00 [facility] CHOICE/CHOICE [id number] 2020 PLUS 00:00:00 [facility] 3 [id number] 2022 00:00:00 Problems Condition Condition Condition Status Onset Resolution Last Treating Co mments Source Name Details Category Date Date Treatment Clinician Date Epigastric Epigastric Disease Active 2021-07 Xin herrera pain pain 2-13 Seybold 00:00: - 00 Externa l Costochond Costochond Disease Active 2021-07 Xin herrera ritis ritis 2-13 Seybold 00:00: - 00 Externa l Nausea Nausea Disease Active 2021-07 Sneha 2-13 Seybold 00:00: - 00 Externa l DDD DDD Disease Active 2021-07 Sneha (degenerat (degenerat 2-07 Se ybold rodney disc rodney disc 00:00: - disease), disease), 00 Exte rna cervical cervical l DDD DDD Disease Active 2021-07 Sneha (degenerat (degenerat 2-07 Se ybold rodney disc rodney disc 00:00: - disease), disease), 00 Exte rna lumbar lumbar l Seasonal Seasonal Disease Active 2021-07 Kelse y allergic allergic 2-07 Seybol d rhinitis rhinitis 00:00: - due to due to 00 Externa pollen pollen l Dysuria Dysuria Disease Active 2021-07 Sneha 1-09 Seybold 00:00: - 00 Externa l Primary Primary Disease Active 2021-07 Sneha hypertensi hypertensi 1-09 Se ybold on on 00:00: - 00 Externa l 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 Sneha hyperlipid hyperlipid 1-09 Se ybold emia emia 00:00: - 00 Externa l Family Family Disease Active 2021-07 Sneha history of history of 109 Se ybold goiter goiter 00:00: - 00 Externa l Enlarged Enlarged Disease Active 2021-07 Kelse y thyroid thyroid - Seybold 00:00: - 00 Externa l Chronic Chronic Disease Active 2021-07 Sneha constipati constipati 08-07 Se ybold on on 00:00: - 00 Externa l Hilar Hilar Disease Active 2021-07 Sneha adenopathy adenopathy 08-07 Se ybold 00:00: - 00 Externa [...] Well adult Well adult Disease Active 2021-07 Xin hererra exam exam 07-31 Seybold 00:00: - 00 Externa l Hyponatrem Hyponatrem Disease Active 2021-07 Xin davis ia 07-31 Seybold 00:00: - 00 Externa l 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 07-31 Seyb old 00:00: - 00 Externa l Fibromyalg Fibromyalg Disease Active 2021-07 Xin davis ia 07-31 Seybold 00:00: - 00 Externa l Gastroesop Gastroesop Disease Active 2021-07 Xin herrera hageal hageal -02 [place] reflux reflux 00:00: - disease disease 00 Externa without without l esophagiti esophagiti s s Simple Simple Disease Active 2021-07 Sneha chronic chronic 07-31 [place] bronchitis bronchitis 00:00: [...] Chronic Chronic Disease Active Univers bronchitis bronchitis 02-16 it y of , , 00:00: [place] unspecifie unspecifie 00 Me dical d chronic d chronic Bran ch bronchitis bronchitis type type Moderate Moderate Disease Active Unive rs dehydratio dehydratio 1-15 it y of n n 00:00: [place] 00 [facility] Nausea Nausea Disease Active Univers 1-15 ity of 00:00: [place] 00 [facility] [place] Bronchopne Bronchopne Disease Active U nivers umonia umonia 01-30 ity of 00:00: [place] 00 MD [facility] Hyposmolal Hyposmolal Disease Active U nivers ity and/or ity and/or 01-30 it y of hyponatrem hyponatrem [place] [facility] [place] Abdominal Abdominal Disease Active Uni vers pain pain 7 ity of 00:00: [place] 00 MD [facility] Productive Productive Disease Active U nivmargarita cough cough 01-30 ity of 00:00: [place] 00 MD [facility] [place] Dysuria Dysuria Disease Active Univers 7- ity of 00:00: [place] 00 MD [facility] [place] Tachycardi Tachycardi Disease Active U nivers a a 7 ity of 00:00: [place] 00 MD [facility] Hypoxia Hypoxia Disease Active Univers 7 ity of 00:00: [place] 00 MD [facility] [place] 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 Uni vers current current 4-05 ity of use of use of 00:00: [place] opiate opiate 00 analgesic analgesic [facility] Post-traum Post-traum Disease Active U jessica atic atic 4-05 ity of stress stress 00:00: [place] disorder disorder 00 MD [facility] Mild Mild Disease Active Univers cognitive cognitive 4-05 ity of disorder disorder 00:00: [place] 00 MD [facility] Adjustment Adjustment Disease Active U nivmargarita disorder disorder 4-05 ity of with with 00:00: [place] physical physical 00 complaints complaints [facility] Tobacco Tobacco Disease Active Univers use use 4-04 ity of 00:00: [place] 00 [facility] Hyponatrem Hyponatrem Disease Active U nivers ia ia 4-04 ity of 00:00: [place] 00 MD [facility] Melena Melena Disease Active Univers 4-04 ity of 00:00: [place] 00 MD [facility] Endometrio Endometrio Disease Active U nivers sis sis 4-04 ity of 00:00: [place] 00 MD [facility] Urinary Urinary Disease Active Univers tract tract 4-04 ity of infection [place] 00:[place] [facility] Colitis Colitis Disease Active Univers 4-04 ity of 00:00: [place] 00 MD [facility] Chronic Chronic Disease Active Univers pain pain 4-04 ity of syndrome syndrome 00:00: [place] 00 MD [facility] Tobacco Tobacco Disease Active Univers use use 4-04 ity of 00:00: [place] 00 MD [facility] Anemia of Anemia of Disease Active Uni vers chronic chronic 4-04 ity of disease disease 00:00: [place] 00 MD [facility] Headache Headache Disease Active Unive rs 4-04 ity of 00:00: [place] 00 MD [facility] Multiple Multiple Disease Active Unive rs sclerosis sclerosis 4-03 ity of 00:00: [place] 00 [facility] Hyponatrem Hyponatrem Disease Active M ethodi ia ia 04-16 st 00:00: Hospita 00 l Abdominal Abdominal Disease Active Uni vers pain, pain, 9-15 ity of generalize generalize 00:00[place] 00 MD [facility] Generalize Generalize Disease Active U nivers d anxiety d anxiety 9-15 ity of disorder disorder 00:00: [place] 00 MD [facility] Urinary Urinary Disease Active Univers incontinen incontinen 9-16 it y of ce in ce in 00:00: [place] female female 00 Medical Branch Muscle Muscle Problem Active [facility] spasm spasm [...] Abscess Abscess Problem Active [facility] No known No known Disease [facility] active active College problems problems of Medicin e Allergies, Adverse Reactions, Alerts Allergy Allergy Status Severity Reaction(s) Onset Inactive Treating Comm ents Source Name Type Date Date Clinician Fentanyl Propensi Active Other (See Agitation Univers ty to Comments) 5-20 , ity of adverse 00:00: Increased [place] reaction 00 heart MD dominguez rate [facility] Prochlor Propensi Active Univer s perazine ty to 5-19 ity of adverse 00:00: [place] reaction 00 MD [facility] Ketorola Drug Active Per Univers c Allergy 1- patient ity of 00:00: throat [place] 00 closes up MD [facility] Fentanyl Propensi Active PALPITATIONS 2020-07 Agitati on Sneha Citrate ty to 09-12 , [place] adverse 00:00: Increased - reaction 00 heart Externa s rate l Ibuprofe Propensi Active 2020-07 Sneha n ty to 09-12 [place] adverse 00:00: - reaction 00 Externa s l Levoflox Propensi Active 2020-07 Sneha acin ty to 09-12 [place] adverse 00:00: - reaction 00 Externa s l Prochlor Propensi Active 2020-07 Sneha perazine ty to 09-12 [place] Edisylat adverse 00:00: - e reaction 00 Externa s l Fentanyl Propensi Active 2020-07 [facility] ty to 09-12 [place] adverse 00:00: of reaction 00 Medicin s to e drug Ibuprofe Propensi Active 2020-07 Mac n ty to 09-12 [place] adverse 00:00: of reaction 00 Medicin s to e drug Prochlor Propensi Active 2020-07 [facility] perazine ty to 09-12 [place] adverse 00:00: of reaction 00 Medicin s to e drug Fentanyl Allergy Active 2020-07 [facility] to 09-12 Health substanc 00:00: e 00 Ibuprofe Allergy Active 2020-07 [facility] n to 09-12 Health substanc 00:00: e 00 Levoflox Allergy Active 2020-07 [facility] acin to 09-12 Health substanc 00:00: e 00 Prochlor Allergy Active 2020-07 [facility] perazine to 09-12 Health substanc 00:00: e 00 Sulfa Allergy Active 2020-07 [facility] Antibiot to 09-12 Health ics substanc 00:00: e 00 Diphenhy Propensi Active Hives 2015-07 Sneha dramine ty to 08-02 [place] Hcl adverse 00:00: - reaction 00 Externa s l Ketorola Propensi Active Hives 2015-07 Sneha c ty to 08-02 [place] Trometha adverse 00:00: - mine reaction 00 Externa s l Pentazoc Propensi Active Hives 2015-07 Sneha ine ty to 08-02 [place] adverse 00:00: - reaction 00 Externa s l Phenazop Propensi Active 2015-07 Other Sneha yridine ty to 08-02 reaction( Seybol d adverse 00:00: s): - reaction 00 UnknownOt Exter na s her l reaction( s): Unknown Sulfa Drug Active Hives 2015-07 Univers (Sulfona Allergy 08-02 ity of mide 00:00: [place] Antibiot 00 Medical ics) Branch Celecoxi Propensi Active Other - See 2015- U nivers b ty to comments 08-02 ity of adverse 00:00: [place] reaction 00 Medical s Branch Cephalos Propensi Active Hives 2015-07 Univer s porins ty to 08-02 ity of adverse 00:00: [place] reaction 00 Medical s Branch Phenytoi Propensi Active Palpitations 2015-07 Univers n ty to 08-02 ity of adverse 00:00: [place] reaction 00 Medical s Branch Phenytoi Propensi Active PALPITATIONS 2015-07 Sneha n ty to 08-02 [place] adverse 00:00: - reaction 00 Externa s l Levetira Propensi Active Palpitations 2015-07 Univers cetam ty to 08-02 ity of adverse 00:00: [place] reaction 00 Medical s Branch Penicill Propensi Active Hives 2015-07 Univer s in ty to 08-02 ity of adverse 00:00: [place] reaction 00 Medical s Branch CELECOXI DRUG Active Other-Cmnt 2015-07 Univ ers B INGREDI 04 ity of 00:00: [place] 00 Medical [facility] CEPHALOS Drug Active Hives 2015-07 Univers PORINS Class -04 ity of 00:00: [place] 00 Medical [facility] PHENYTOI DRUG Active Palpitations 2015-07 Un niru N INGREDI 04 ity of 00:00: [place] 00 Medical Branch LEVETIRA DRUG Active Palpitations 2015-07 Un niru CETAM INGREDI 04 ity of 00:00: [place] 00 Medical [facility] PENICILL DRUG Active Hives 2015-07 Univers IN INGREDI -04 ity of 00:00: [place] 00 Medical [facility] PENTAZOC DRUG Active Hives 2015-07 Univers INE INGREDI -04 ity of 00:00: [place] 00 Medical [facility] SULFA Drug Active Hives 2015-07 Univers (SULFONA Class 1-04 ity of MIDE 00:00: [place] ANTIBIOT 00 Medical ICS) Branch PENTAZOC DRUG Active Hives 2015-07 Univers INE INGREDI -04 ity of LACTATE 00:00: [place] 00 Medical [facility] Sulfa Propensi Active Hives 2015-07 Sneha Drugs ty to 08-02 [place] adverse 00:00: - reaction 00 Externa s l KETOROLA DRUG Active Hives 2015-07 Univers C INGREDI 04 ity of TROMETHA 00:00: [place] MINE 00 Medical Branch TRAMADOL DRUG Active High Anaphylaxis 2015-07 Uni vers INGREDI 08-02 ity of 00:00: [place] 00 Medical [facility] Pentazoc Propensi Active Hives 2015-07 Not Univer s ine ty to 08-02 allergic ity of Lactate adverse 00:00: [place] reaction 00 Medical s Branch Ketorola Propensi Active Hives 2015-07 Univer s c ty to 08-02 ity of Trometha adverse 00:00: [place] mine reaction 00 Medical s Branch Tramadol Propensi Active Anaphylaxis 2015-07 U nivers ty to 08-02 ity of adverse 00:00: [place] reaction 00 Medical s Branch Pentazoc Drug Active Hives 2015-07 Not Univers ine Allergy 08-02 allergic ity of 00:00: [place] 00 Medical Branch Ketorola Propensi Active Hives 2015-07 Mac c ty to 08-02 [place] Trometha adverse 00:00: of mine reaction 00 Medicin s to e drug Pentazoc Propensi Active Hives 2015-07 [facility] ine ty to 08-02 [place] adverse 00:00: of reaction 00 Medicin s to e drug Phenazop Propensi Active 2015-07 Other [facility] yridine ty to 08-02 reaction( Colleg e adverse 00:00: s): of reaction 00 Unknown Medicin s to e drug Phenytoi Propensi Active Palpitations 2015-07 [facility] n ty to 08-02 [place] adverse 00:00: of reaction 00 Medicin s to e drug Sulfa Propensi Active Hives 2015-07 [facility] Antibiot ty to 08-02 [place] ics adverse 00:00: of reaction 00 Medicin s to e drug Ciproflo Propensi Active Other (See 2015-07 "states B aylor xacin ty to Comments) 08-02 bladder Colleg e adverse 00:00: infection of reaction 00 ""states Medici n s to bladder e drug infection " Diphenhy Propensi Active Hives 2015-07 [facility] dramine ty to 08-02 [place] Hcl adverse 00:00: of reaction 00 Medicin s to e drug Ciproflo Allergy Active Other 2015-07 "states [place] [...] to 08-02 Health substanc 00:00: e 00 Morphine Propensi Active Shortness of States Sneha ty to Breath 9-18 "lips [place] adverse 00:00: turn - reaction 00 blue"Stat Exter na s es "lips l turn blue"Stat es "lips turn blue" Acetamin Propensi Active Sneha ophen ty to 918 [place] Injectio adverse 00:00: - n reaction 00 Externa s l Morphine Propensi Active Shortness Of Methodi ty to Breath [facility] [facility] adverse 00:00: Hospita reaction 00 l s to drug Oxycodon Propensi Active Hives Method i e-Acetam ty to 18 st inophen adverse 00:00: Hospita reaction 00 l s to drug Penicill Propensi Active Anaphylaxis M ethodi ins ty to 9[address] adverse 00:00: Hospita reaction 00 l s to drug Tetracyc Propensi Active Hives Method i line ty to [address] adverse 00:00: Hospita reaction 00 l s to drug Tizanidi Propensi Active Anaphylaxis 0 M ethodi ne ty to [address] adverse 00:00: Hospita reaction 00 l s to drug Tramadol Propensi Active Shortness Of Methodi ty to Breath 18 st adverse 00:00: Hospita reaction 00 l s to drug Acetamin Propensi Active Method i ophen ty to [address] adverse 00:00: Hospita reaction 00 l s to drug Celecoxi Propensi Active Anaphylaxis 0 M ethodi b ty to [address] adverse 00:00: Hospita reaction 00 l s to drug Cephalos Propensi Active Shortness Of Methodi porins ty to Breath [address] adverse 00:00: Hospita reaction 00 l s to drug Cyclospo Propensi Active Hives Method i rine ty to [address] adverse 00:00: Hospita reaction 00 l s to drug Divalpro Propensi Active Palpitations Methodi ex ty to 04-16 st adverse 00:00: Hospita reaction 00 l s to drug Levetira Propensi Active Rash Method i cetam ty to 04-16 adverse 00:00: Hospita reaction 00 l s to drug Lorazepa Propensi Active Anxiety Metho di m ty to 04-16 st adverse 00:00: Hospita reaction 00 [...] ers RAMIDE INGREDI 04-10 ity of 00:00: [place] 00 Medical Branch Metoclop Drug Active Other - See Uni vers ramide Allergy comments 04-10 ity of 00:00: [place] 00 [facility] Metoclop Propensi Active Other [...] Active unknown Unive rs zaprine ty to 04-10 ity of adverse 00:00: [place] reaction 00 MD [facility] Metoclop Drug Active Other (See Univ ers ramide Allergy Comments) 04-10 ity of Hcl 00:00: [place] 00 MD [facility] Tizanidi Propensi Active unknown Unive rs ne ty to 04-10 ity of adverse 00:00: [place] reaction 00 MD [facility] Metoclop Propensi Active Other (See Ba ylor ramide ty to Comments) 04-10 College adverse 00:00: of reaction 00 Medicin s to e drug Oxycodon Propensi Active Hives [facility] e-Acetam ty to 04-10 [place] inophen adverse 00:00: of reaction 00 Medicin s to e drug Tizanidi Propensi Active Anaphylaxis unknownu n [facility] ne ty to 04-10 known College Hydrochl adverse 00:00: of oride reaction 00 Medicin s to e drug Metoclop Allergy Active Other [facility] ramide to 04-10 Health substanc 00:00: e 00 Oxycodon Drug Active Hives [facility] e-Acetam Allergy 04-10 Health inophen 00:00: 00 Celecoxi Propensi Active Other (See Ba ylor b ty to Comments) 04-10 College adverse 00:00: of reaction 00 Medicin s to e drug Cephalos Propensi Active Shortness Of unknown Mac porins ty to Breath 04-10 College adverse 00:00: of reaction 00 Medicin s to e drug Cycloben Propensi Active unknownun [place] cl[place] zaprine ty to 04-10 known College adverse 00:00: of reaction 00 Medicin s to e drug Penicill Propensi Active Hives Throat Sneha ins ty to 03-01 closes [place] adverse 00:00: upThroat - reaction 00 closes Externa s upThroat l closes upThroat closes up Penicill Propensi Active Throat Univer s ins ty to 8-03 closes up ity of adverse 00:00: [place] reaction 00 MD [facility] Tramadol Propensi Active Shortness Of 2016 Throat Univers ty to Breath 03-01 closes up ity of adverse 00:00: [place] reaction 00 MD [facility] Penicill Allergy Active Hives Throat [facility] ins to 03-01 closes up Health substanc 00:00: e 00 Penicill Propensi Active Hives Throat [facility] ins ty to 03-01 closes [place] adverse 00:00: upThroat of reaction 00 closes up Medic in s to e drug Tramadol Propensi Active Shortness Of Throat [facility] ty [facility] Bre[facility] [place] [facility] upThroat of reaction 00 closes up Medic in s to e drug LITHIUM Drug Active Other-Cmnt Unive rs ANALOGUE Class 6-24 ity of S 00:00: [place] 00 [facility] Branch SULFAMET DRUG Active Hives Univers HOXAZOLE 624 ity of -TRIMETH 00:00: [place] OPRIM 00 Medical Branch TETRACYC DRUG Active Hives Univers LINE INGREDI 624 ity of 00:00: [place] 00 [facility] DIVALPRO DRUG Active Low Palpitations Un niru EX INGREDI 624 ity of SODIUM 00:00: [place] 00 [facility] LORAZEPA DRUG Active Low Anxiety Univers M INGREDI 624 ity of 00:00: [place] 00 [facility] VALPROIC DRUG Active Low Palpitations 2015- Un niru ACID INGREDI 6-24 ity of 00:00: [place] 00 Medical [facility] Tetracyc Propensi Active Hives Univer s line ty to 624 ity of adverse 00:00: [place] reaction 00 Medical s Branch Sulfamet Drug Active Hives Univers hoxazole Allergy 624 ity of -Trimeth 00:00: [place] oprim 00 Medical Branch Valproic Propensi Active Palpitations Not Univers Acid ty to 624 allergic ity of adverse 00:00: [place] reaction 00 Medical s Branch Cyclospo Propensi Active Hives Sneha rine ty to 624 [place] adverse 00:00: - reaction 00 Externa s l Levetira Propensi Active Rash Sneha cetam ty to 6-24 [place] adverse 00:00: - reaction 00 Externa s l Earle Propensi Active Other 0 Sneha ty to 6-24 [place] adverse 00:00: - reaction 00 Externa s l Lorazepa Propensi Active Anxiety Kelse y m ty to 624 [place] adverse 00:00: - reaction 00 Externa s l Tetracyc Propensi Active Hives Sneha lines ty to 624 [place] adverse 00:00: - [...] 00:00: infection - oride reaction 00 ""states [employer] [place] a s bladder l infection "Bladder infection "states bladder infection " Alprazol Propensi Active Anxiety Unive rs am ty to 6-24 ity of adverse 00:00: [place] reaction 00 MD [facility] Lorazepa Propensi Active Anxiety Unive rs m ty to 624 ity of adverse 00:00: [place] reaction 00 MD [facility] Sulfamet Propensi Active Hives Univer s hoxazole ty to 6-24 ity of -Trimeth adverse 00:00: [place] oprim reaction 00 MD [facility] Ciproflo Propensi Active Other (See Bladder U nivers xacin ty to Comments) 624 infection ity of Hcl adverse 00:00: [place] reaction 00 MD [facility] Cyclospo Propensi Active Hives Univer s rine ty to 6-24 ity of adverse 00:00: [place] reaction 00 MD [facility] Divalpro Propensi Active Palpitations Univers ex ty to 624 ity of adverse 00:00: [place] reaction 00 MD [facility] Levetira Propensi Active Rash Univer s cetam ty to 01-20 ity of adverse 00:00: [place] reaction 00 MD alberto yoder [facility] Earle Propensi Active Other (See Uni vers Analogue ty to Comments) 01-20 ity o f s adverse 00:00: [place] reaction 00 MD alberto yoder [facility] Tetracyc Propensi Active Hives Univer s lines ty to 01-20 ity of adverse 00:00: [place] reaction 00 MD alberto yoder [facility] Levetira Allergy Active Rash [place] cetam to 01-20 Health substanc 00:00: e 00 Sulfamet Allergy Active Hives [place] hoxazole to 01-20 Health -Trimeth substanc 00:00: oprim e 00 Levetira Propensi Active Rash [facility] cetam ty to 01-20 College adverse 00:00: of reaction 00 Medicin s to e drug Earle Propensi Active Other (See Portis claude ty to Comments) 01-20 College adverse 00:00: of reaction 00 Medicin s to e drug Lorazepa Propensi Active Anxiety Portis[place] r m ty to 01-20 College adverse 00:00: of reaction 00 Medicin s to e drug Sulfamet Propensi Active Hives [facility] hoxazole ty to 01-20 College -Trimeth adverse 00:00: of oprim reaction 00 Medicin s to e drug Tetracyc Propensi Active Hives [facility] lines & ty to 01-20 College Related adverse 00:00: of reaction 00 Medicin s to e drug Alprazol Propensi Active Anxiety [place] am ty to 01-20 College adverse 00:00: of reaction 00 Medicin s to e drug Valproic Propensi Active Palpitations Mac Acid ty to 01-20 College adverse 00:00: of reaction 00 Medicin s to e drug Cyclospo Propensi Active Hives [facility] rine ty to 01-20 College adverse 00:00: of reaction 00 Medicin s to e drug Penicill Allergy Active [facility] ins to drug Physici (finding ans ) sulfa Allergy Active [facility] to drug [facility] (finding ans ) Family History Family Member Diagnosis Comments Start Date Stop Date Source Paternal Mesothelioma [facility] o [facility] Paternal Multiple Myeloma Universi ty of [facility]aternal Lung cancer [facility] Paternal Bile duct cancer [facility] Paternal Liver cancer [facility] Paternal Stomach cancer [facility] Paternal uncle Brain cancer [facility] [place] [facility] Natural sister -Unknown cancer [facility]ive rs[facility] [place] [facility] Natural sister Graves' disease [facility]ive rsity [facility] [place] [facility] Natural sister Uterine cancer [facility]iver sity [facility] [place] [facility] Natural sister Vaginal cancer [facility]iver sity [facility] [place] [facility] Natural father -Other cancer Univers ity [facility] [place] [facility] Natural father Hypertension [facility] [place] [facility] Natural father Melanoma [facility] Natural father Prostate cancer [facility]ive [facility] [place] [facility] Natural father Sarcoma [facility] Natural father Skin cancer [facility] [place] [facility] Maternal aunt Colon cancer [facility] [place] [facility] Maternal Colon cancer [facility] o [facility]aternal Graves' disease Universit y of [facility] Maternal Head and neck [facility]aternal Skin cancer [facility] Maternal Thyroid cancer [facility] Natural mother Graves' disease [facility] [place] [facility] Natural mother Melanoma [facility] Natural mother Multiple Myeloma Univ ersity [facility] [place] [facility] Natural mother Skin cancer [facility] [place] [facility] Natural mother Thyroid cancer [facility] [place] [facility] Paternal aunt -Unknown cancer [facility]iver s[facility] [place] [facility] Paternal aunt Colon cancer [facility] [place] [facility] Paternal aunt Ovarian cancer [facility] [place] [facility] Paternal aunt Kidney cancer [facility] [place] [facility] Social History Social Habit Start Date Stop Date Quantity Comments Source History of tobacco 2007-07-30 Passive smoker Un iversity of use 00:00:00 [facility] SDOH [facility] Alcohol Std Drinks History SDOH [facility] Alcohol Comment Exposure to 2022-06-20 2022-06-30 Not sure University SARS-CoV-2 (event) 00:00:00 08:28:00 [facility] Alcohol intake 2021-12-16 2021-12-16 Current University of 00:00:00 00:00:00 non-drinker of [place] MD [facility] (finding) Cigarettes smoked 2021-09-26 2021-09-26 Univers ity of current (pack per 00:00:00 00:00:00 [place] Mateo Armendariz ) - Reported Cancer Ce nter Cigarette 2021-09-26 2021-09-26 University of pack-years 00:00:00 00:00:00 [place] [facility] Tobacco use and 2021-09-26 2021-09-26 Smokeless Universit y of exposure 00:00:00 00:00:00 tobacco non-user [facility] History SDOH 2021-07-12 2021-07-12 1 [facility] [...] 00:00:00 00:00:00 Sex Ass[birth year] At [birth year] [facility] 00:00:[facility]00 [facility] Smoking Status Start Date Stop Date Source Tobacco smoking [facility] consumption unknown Smokes tobacco daily 2022-05-31 00:00:00 Sneha Sorianoold - External Ex-smoker 2022-02-21 00:00:00 2022-02-21 [facility] 00:00:00 [facility] Never smoked tobacco [facility] Medications Ordered Filled Start Stop Current Ordering Indication Dosage Frequency Signature Comments Components Source Medication Medication Date Date Medication? Clinician (SIG) Name Name Fluticasone 2021-07 Yes 2{puff} Inhale 2 Sneha -Salmeterol 2-15 puffs into Se ybold (Advair 00:00: the lungs - HFA) 115-21 00 2 times Exter na MCG/ACT daily l inhalation Aerosol Montelukast 2021-07 Yes 10mg Take 1 Naty ey (SINGULAIR) 2-15 tablet (10 Se ybold 10 MG oral 00:00: mg total) - Tablet 00 by mouth Externa tablet nightly l Acetaminoph 2021-07 Yes 1{tbl} Q.[id number] Take 1 Sneha en-Codeine 2-13 [id number] tablet by Seybold 300-30 MG 15:27: 3D mouth - oral Tablet 14 every 8 Exter na hours as l needed Methocarbam 2021-07 Yes Take by [place] cal ol (ROBAXIN 2-13 mouth Seybold OR) 15:27: - 14 Externa l Acetaminoph 2021-07 Yes 1{tbl} Q.[id number] Take 1 Sneha en-Codeine 2-13 [id number] tablet by Seybold 300-30 MG 15:27: 3D mouth - oral Tablet 14 every 8 Exter na hours as l needed Methocarbam 2021-07 Yes Take by [place] y ol (ROBAXIN 2-13 mouth Seybold OR) 15:27: - 14 Externa l HYDROcodone 2021-07 Yes Sneha -Acetaminop 2-12 Seybold hen (NORCO) 00:00: - 5-325 MG 00 Externa oral Tablet l Methocarbam 2021-07 Yes 1{tbl} Take 1 Ke lsey ol 500 MG 2-12 tablet by Seybo ld oral Tablet 00:00: mouth - 00 every 12 Externa hours l HYDROcodone 2021-07 Yes Sneha -Acetaminop 2-12 Seybold hen (NORCO) 00:00: - 5-325 MG 00 Externa oral Tablet l Methocarbam 2021-07 Yes 1{tbl} Take 1 Ke lsey ol 500 MG 2-12 tablet by Seybo ld oral Tablet 00:00: mouth - 00 every 12 Externa hours l Quetiapine 2021-07 Yes 50mg Take 50 mg K elsey Fumarate 50 2-10 by mouth Seyb old MG oral 00:00: at bedtime - Tablet 00 Externa l Quetiapine 2021-07 Yes 50mg Take 50 mg K elsey Fumarate 50 2-10 by mouth Seyb old MG oral 00:00: at bedtime - Tablet 00 Externa l Acetaminoph 2021-07 Yes 1{tbl} Q.[id number] Take 1 Sneha en-Codeine 2-07 [id number] tablet by Seybold 300-30 MG 15:45: 3D mouth - oral Tablet 59 every 8 Exter na hours as l needed Methocarbam 2021-07 Yes Take by [place] sey ol (ROBAXIN 2-07 mouth Seybold OR) 15:45: - 59 Externa l Cholecalcif 2021-07- No 2000U Take 2,000 Sneha [place] 50 MCG 2-07 12-07 units by Sey bold (1999 [place]) 15:45: 00:00 mouth - oral Tablet 37 :00 Externa l Pregabalin 2021-07- No 150mg Take 150 K elsey 150 MG oral 2-07 12-07 mg by Seybol d Capsule 15:45: 00:00 mouth 3 - 37 :00 times Externa daily l predniSONE 2021-07 Yes [id number] 10mg Take 1 K elsey (DELTASONE) 2-07 tablet (10 Se ybold 10 MG oral 00:00: mg total) - tablet 00 by mouth Externa daily l Budesonide, 2021-07 Yes [id number] .5mg Take 2 mL Sneha Inhalation, 2-07 (0.5 mg Seybo ld 0.5 MG/2ML 00:00: total) by - inhalation 00 nebulizati Ext edna Suspension on 2 times l daily FLUTICASONE 2021-07 Yes [id number] 50ug Use 1 K elsey PROPIONATE, 2-07 spray (50 Sey bold NASAL, 50 00:00: mcg total) - MCG/ACT 00 in each Externa nasal nostril l Suspension daily predniSONE 2021-07 Yes [id number] 10mg Take 1 K elsey (DELTASONE) 2-07 tablet (10 Se ybold 10 MG oral 00:00: mg total) - tablet 00 by mouth Externa daily l Budesonide, 2021-07 Yes [id number] .5mg Take 2 mL Sneha Inhalation, 2-07 (0.5 mg Seybo ld 0.5 MG/2ML 00:00: total) by - inhalation 00 nebulizati Ext edna Suspension on 2 times l daily FLUTICASONE 2021-07 Yes [id number] 50ug Use 1 K elsey PROPIONATE, 2-07 spray (50 Sey bold NASAL, 50 00:00: mcg total) - MCG/ACT 00 in each Externa nasal nostril l Suspension daily predniSONE 2021-07 Yes [id number] 10mg Take 1 K elsey (DELTASONE) 2-07 tablet (10 Se ybold 10 MG oral 00:00: mg total) - tablet 00 by mouth Externa daily l FLUTICASONE 2021-07 Yes [id number] 50ug Use 1 K elsey PROPIONATE, 2-07 spray (50 Sey bold NASAL, 50 00:00: mcg total) - MCG/ACT 00 in each Externa nasal nostril l Suspension daily Budesonide, 2021-07 [id number] .5mg Take 2 mL Sneha Inhalation, 2-07 12-15 (0.5 mg Seyb old 0.5 MG/2ML 00:00: 00:00 total) by - inhalation 00 :00 nebulizati Ext edna Suspension on 2 times l daily Carvedilol 2021-07 Yes [id number] 12.5mg Take 1 Sneha 12.5 MG 1-28 tablet Seybold oral Tablet 00:00: (12.5 mg - 00 total) by Externa mouth in l the morning and 1 tablet (12.5 mg total) in the evening. Take with meals. Arformotero 2021-07 Yes [id number] 15ug Inhale 2 Sneha l Tartrate 1-28 mL (15 mcg Sey bold (Brovana) 00:00: total) - 15 MCG/2ML 00 into the Exter na inhalation lungs 2 l Inhalant times Solution daily Carvedilol 2021-07 Yes [id number] 12.5mg Take 1 Sneha 12.5 MG 1-28 tablet Seybold oral Tablet 00:00: (12.5 mg - 00 total) by Externa mouth in l the morning and 1 tablet (12.5 mg total) in the evening. Take with meals. Arformotero 2021-07 Yes [id number] 15ug Inhale 2 Sneha l Tartrate 1-28 mL (15 mcg Sey bold (Brovana) 00:00: total) - 15 MCG/2ML 00 into the Exter na inhalation lungs 2 l Inhalant times Solution daily Carvedilol 2021-07 Yes [id number] 12.5mg Take 1 Sneha 12.5 MG 1-28 tablet Seybold oral Tablet 00:00: (12.5 mg - 00 total) by Externa mouth in l the morning and 1 tablet (12.5 mg total) in the evening. Take with meals. Arformotero 2021-07- No [id number] 15ug Inhale 2 Sneha l Tartrate 1-28 12-15 mL (15 mcg Se ybold (Brovana) 00:00: 00:00 total) - 15 MCG/2ML 00 :00 into the Exter na inhalation lungs 2 l Inhalant times Solution daily Carvedilol 2021-07- No [id number] 12.5mg Take 2 Sneha (Coreg) 1-28 12-07 tablets Seybold 6.25 MG 00:00: 00:00 (12.5 mg - oral Tablet 00 :00 total) by Ext edna mouth in l the morning and 2 tablets (12.5 mg total) in the evening. Take with meals. haloperidol 2021-07 Yes 1mg 1 mg, Unive rs lactate 1-18 Intravenou ity of (HALDOL) 16:32: s, PRN, 1 [place] injection 1 11 dose, Medical mg Starting Branch on Sun06/16/22 at 1032, Until Discontinu ed, Routine, Nausea and Vomiting (N/V), PACU haloperidol 2021-07- No 1mg 1 mg, Univ ers lactate 1-18 11-18 Intravenou ity o f (HALDOL) 16:32: 19:40 s, PRN, 1 Rajeev as injection 1 11 :09 dose, Medical mg Starting Branch on Sun06/16/22 at 1032, Until Sun06/16/22 at 1340, Routine, Nausea and Vomiting (N/V), PACU gadobenate 2021-07- No [id number] .2mL/kg 18 mL (0.2 Univers dimeglumine 1-18 11-18 mL/kg ?90 it y of (MULTIHANCE 16:30: 16:15 kg), [place] -20 mL) 00 :00 Intravenou Medica l injection s, ONCE, 1 Bran ch 18 mL dose, On Sun06/16/22 at 1030, Routine phenazopyri 2021-07 Yes 100mg Take 100 U nivers dine 100 mg 1-18 mg by ity of tablet 11:40: mouth. [address] carvediloL 2021-07 Yes 6.25mg Take 6.25 Univers 6.25 mg 1-18 mg by ity of tablet 11:40: mouth in [address] and 6.25 mg in the evening. Take with meals. phenazopyri 2021-07 Yes 100mg Take 100 U nivers dine 100 mg 1-18 mg by ity of tablet 11:40: mouth. [address] carvediloL 2021-07 Yes 6.25mg Take 6.25 Univers 6.25 mg 1-18 mg by ity of tablet 11:40: mouth in [address] and 6.25 mg in the evening. Take with meals. phenazopyri 2021-07 Yes 100mg Take 100 U nivers dine 100 mg 1-18 mg by ity of tablet 11:40: mouth. [address] carvediloL 2021-07 Yes 6.25mg Take 6.25 Univers 6.25 mg 1-18 mg by ity of tablet 11:40: mouth in [address] and 6.25 mg in the evening. Take with meals. phenazopyri 2021-07 Yes 100mg Take 100 U nivers dine 100 mg 1-18 mg by ity of tablet 11:40: mouth. [address] carvediloL 2021-07 Yes 6.25mg Take 6.25 Univers 6.25 mg 1-18 mg by ity of tablet 11:40: mouth in [address] morning Branch and 6.25 mg in the evening. Take with meals. phenazopyri 2021-07 Yes 100mg Take 100 U nivers dine 100 mg 1-18 mg by ity of tablet 11:40: mouth. [address] carvediloL 2021-07 Yes 6.25mg Take 6.25 Univers 6.25 mg 1-18 mg by ity of tablet 11:40: mouth in [address] and 6.25 mg in the evening. Take with meals. carvediloL 2021-07 Yes 6.25mg Take 6.25 Univers 6.25 mg 1-14 mg by ity of tablet 12:44: mouth in [address] morning [place] and 6.25 mg in the evening. Take with meals. Phenazopyri 2021-07- No 100mg Q.[id number] Take 100 Sneha dine HCl 08-07 [id number] mg by Sey bold 100 MG oral 16:44: 00:00 3D mouth 3 - Tablet 56 :00 times Externa daily as l needed Phenazopyri 2021-07- No 100mg Q.[id number] Take 100 Sneha dine HCl 08-07 [id number] mg by Sey bold 100 MG oral [...] 150mg Take 150 Sneha 100 MG oral 1-09 11-09 mg by Seybol d Tablet 15:41: 00:00 mouth - 19 :00 daily Externa l Carvedilol 2021-07 Yes [id number] 6.25mg Take 1 Sneha (Coreg) -09 tablet Seybold 6.25 MG 00:00: (6.25 mg - oral Tablet 00 total) by Ext edna mouth in l the morning and 1 tablet (6.25 mg total) in the evening. Take with meals. Esomeprazol 2021-07 Yes [id number] 20mg Take 1 Sneha e Magnesium -09 capsule Seybo ld 20 MG oral 00:00: (20 mg - Delayed 00 total) by Externa Release mouth l Capsule every morning (before breakfast) Dicyclomine 2021-07 Yes [id number] 10mg Q.[id number] Take 1 Sneha HCl 10 MG - [id number] capsule S eybold oral 00:00: 3D (10 mg - Capsule 00 total) by Externa mouth 3 l times daily as needed Gabapentin 2021-07 Yes [id number] 900mg Take 3 Sneha 300 MG oral -09 capsules Seyb old Capsule 00:00: (900 mg - 00 total) by Externa mouth 3 l times daily Arformotero 2021-07 Yes [id number] 15ug Inhale 2 Sneha l Tartrate 1-09 mL (15 mcg Sey bold (Brovana) 00:00: total) - 15 MCG/2ML 00 into the Exter na inhalation lungs 2 l Inhalant times Solution daily Phenazopyri 2021-07 Yes [id number] 100mg Q.[id number] Take 1 Sneha dine HCl -09 [id number] tablet Sey bold 100 MG oral 00:00: 3D (100 mg - Tablet 00 total) by Externa mouth 3 l times daily as needed for pain Esomeprazol 2021-07 Yes [id number] 20mg Take 1 Sneha e Magnesium 1-09 capsule Seybo ld 20 MG oral 00:00: (20 mg - Delayed 00 total) by Externa Release mouth l Capsule every morning (before breakfast) Dicyclomine 2021-07 Yes [id number] 10mg Q.[id number] Take 1 Sneha HCl 10 MG -09 [id number] capsule S eybold oral 00:00: 3D (10 mg - Capsule 00 total) by Externa mouth 3 l times daily as needed Phenazopyri 2021-07 Yes [id number] 100mg Q.[id number] Take 1 Sneha dine HCl 1-09 [id number] tablet Sey bold 100 MG oral 00:00: 3D (100 mg - Tablet 00 total) by Externa mouth 3 l times daily as needed for pain Esomeprazol 2021-07 Yes [id number] 20mg Take 1 Sneha e Magnesium 1-09 capsule Seybo ld 20 MG oral 00:00: (20 mg - Delayed 00 total) by Externa Release mouth l Capsule every morning (before breakfast) Dicyclomine 2021-07 Yes [id number] 10mg Q.[id number] Take 1 Sneha HCl 10 MG -09 [id number] capsule S eybold oral 00:00: 3D (10 mg - Capsule 00 total) by Externa mouth 3 l times daily as needed Phenazopyri 2021-07 Yes [id number] 100mg Q.[id number] Take 1 Sneha dine HCl -09 [id number] tablet Sey bold 100 MG oral 00:00: 3D (100 mg - Tablet 00 total) by Externa mouth 3 l times daily as needed for pain Esomeprazol 2021-07 Yes [id number] 20mg Take 1 Sneha e Magnesium 1-09 capsule Seybo ld 20 MG oral 00:00: (20 mg - Delayed 00 total) by Externa Release mouth l Capsule every morning (before breakfast) Dicyclomine 2021-07 Yes [id number] 10mg Q.[id number] Take 1 Sneha HCl 10 MG -09 [id number] capsule S eybold oral 00:00: 3D (10 mg - Capsule 00 total) by Externa mouth 3 l times daily as needed Phenazopyri 2021-07 Yes [id number] 100mg Q.[id number] Take 1 Sneha dine HCl 1-09 [id number] tablet Sey bold 100 MG oral 00:00: 3D (100 mg - Tablet 00 total) by Externa mouth 3 l times daily as needed for pain Levalbutero 2021-07- Yes [id number] 1.25mg Q.[id number] Take 3 m L Sneha l HCl 1.25 08-07 [id number] (1.25 mg Seybold MG/3ML 00:00: 05:59 3D total) by - inhalation 00 :00 nebulizati Ext edna Inhalant on every 8 l Solution hours as needed for wheezing Levalbutero 2021-07- No [id number] 1.25mg Q.[id number] Take 3 m L Sneha l HCl 1.25 08-07 [id number] (1.25 mg Seybold MG/3ML 00:00: 00:00 3D total) by - inhalation 00 :00 nebulizati Ext edna Inhalant on every 8 l Solution hours as needed for wheezing Atorvastati 2021-07 Yes [id number] 10mg Take 1 Sneha n Calcium 1-04 tablet (10 Seyb old (Lipitor) 00:00: mg total) - 10 MG oral 00 by mouth Exter na Tablet daily l Atorvastati 2021-07 Yes [id number] 10mg Take 1 Sneha n Calcium 1-04 tablet (10 Seyb old (Lipitor) 00:00: mg total) - 10 MG oral 00 by mouth Exter na Tablet daily l Atorvastati 2021-07 Yes [id number] 10mg Take 1 Sneha n Calcium 1-04 tablet (10 Seyb old (Lipitor) 00:00: mg total) - 10 MG oral 00 by mouth Exter na Tablet daily l Atorvastati 2021-07 Yes [id number] 10mg Take 1 Sneha n Calcium 1-04 tablet (10 Seyb old (Lipitor) 00:00: mg total) - 10 MG oral 00 by mouth Exter na Tablet daily l Cholecalcif 2021-07 Yes 1999U Take 2,000 Sneha [place] 50 MCG 1-02 units by Seyb old (1999) 15:48: mouth - oral Tablet 52 Externa l Cholecalcif 2021-07 Yes [id number] Take 2,000 Sneha [place] 50 MCG 1-02 [...] Tablet 52 Externa l Carvedilol 2021-07 Yes [id number] 3.125mg Take 1 Sneha (Coreg) 07-31 tablet Seybold 3.125 MG 00:00: (3.125 mg - oral Tablet 00 total) by Ext edna mouth in l the morning and 1 tablet (3.125 mg total) in the evening. Take with meals. Carvedilol 2021-07 No [id number] 3.125mg Take 1 Sneha (Coreg) - 11-09 tablet Seybold 3.125 MG 00:00: 00:00 (3.125 [...] mg by ity of tablet 13:17: mouth. [address] phenazopyri 2021-0 Yes 100mg Take 100 U nivers dine 100 mg 9-02 mg by ity of tablet 13:17: mouth. [address] phenazopyri 2021-0 Yes 100mg Take 100 U nivers dine 100 mg 9-02 mg by ity of tablet 13:17: mouth. [address] phenazopyri 2021-0 Yes 100mg Take 100 U nivers dine 100 mg 9-02 mg by ity of tablet 13:17: mouth. [address] phenazopyri 2021-0 Yes 100mg Take 100 U nivers dine 100 mg 9-02 mg by ity of tablet 13:17: mouth. [address] phenazopyri 2021-0 Yes 100mg Take 100 U nivers dine 100 mg 9-02 mg by ity of tablet 13:17: mouth. [address] phenazopyri 2021-0 Yes 100mg Take 100 U nivers dine 100 mg 9-02 mg by ity of tablet 13:17: mouth. [address] phenazopyri 2022-0 Yes 100mg Take 100 U nivers dine 100 mg 9-02 mg by ity of tablet 13:17: mouth. [address] phenazopyri 2-0 Yes 100mg Take 100 U nivers dine 100 mg 9-02 mg by ity of tablet 13:17: mouth. [address] phenazopyri 2-0 Yes 100mg Take 100 U nivers dine 100 mg 9-02 mg by ity of tablet 13:17: mouth. [address] Furosemide 2021-0 Yes Sneha 20 MG oral 8-24 Seybold Tablet 00:00: - 00 Externa l Furosemide 2021-0 2021- No Sneha 20 MG oral 8-24 11-09 Seybold Tablet 00:00: 00:00 - 00 :00 Externa l gabapentin 2-0 Yes [id number] 600mg Take 2 U nivers 300 mg 8-13 capsules ity of capsule 00:00: by mouth [place] 00 in the [facility] Branch and 2 capsules at noon and 2 capsules in the evening. gabapentin 2022-0 Yes [id number] 600mg Take 2 U nivers 300 mg 8-13 capsules ity of capsule 00:00: by mouth [place] 00 in the [facility] Branch and 2 capsules at noon and 2 capsules in the evening. gabapentin 2-0 Yes [id number] 600mg Take 2 U nivers 300 mg 8-13 capsules ity of capsule 00:00: by mouth [place] 00 in the Medical morning Branch and 2 capsules at noon and 2 capsules in the evening. gabapentin 2022-0 Yes [id number] 600mg Take 2 U nivers 300 mg 8-13 capsules ity of capsule 00:00: by mouth [place] 00 in the Medical morning Branch and 2 capsules at noon and 2 capsules in the evening. gabapentin 2022-0 Yes [id number] 600mg Take 2 U nivers 300 mg 8-13 capsules ity of capsule 00:00: by mouth [place] 00 in the Medical morning Branch and 2 capsules at noon and 2 capsules in the evening. gabapentin 2022-0 Yes [id number] 600mg Take 2 U nivers 300 mg 8-13 capsules ity of capsule 00:00: by mouth [place] 00 in the Medical morning Branch and 2 capsules at noon and 2 capsules in the evening. gabapentin 2022-0 Yes [id number] 600mg Take 2 U nivers 300 mg 8-13 capsules ity of capsule 00:00: by mouth [place] 00 in the Medical morning Branch and 2 capsules at noon and 2 capsules in the evening. gabapentin 2021-0 2021- No [id number] 600mg Take 2 Univers 300 mg 8-13 10-28 capsules ity of capsule 00:00: 00:00 by mouth [place] 00 :00 in the Medical morning Branch and 2 capsules at noon and 2 capsules in the evening. gabapentin 2021-0 2021- No [id number] 600mg Take 2 Univers 300 mg 8-13 10-28 capsules ity of capsule 00:00: 00:00 by mouth [place] 00 :00 in the Medical morning Branch and 2 capsules at noon and 2 capsules in the evening. budesonide Yes [id number] .5mg Inhale 2 Univers 0.5 mg/2 mL 8-12 mL in the ity of nebulizer 00:00: morning [place] solution 00 and 2 mL Medical in the Branch evening. lipase-prot Yes [id number] 2{capsu Take 2 Univers ease-amylas 8-12 le} capsules ity of e (CREON) 00:00: by mouth [place] 12,000-38,[place] 00 in the Medica l 00 -60,000 morning Branch unit and 2 capsule capsules at noon and 2 capsules in the evening. Take with meals. budesonide Yes [id number] .5mg Inhale 2 Univers 0.5 mg/2 mL 8-12 mL in the ity of nebulizer 00:00: morning [place] solution 00 and 2 mL Medical in the Branch evening. lipase-prot 0 Yes [id number] 2{capsu Take 2 Univers ease-amylas 8-12 le} capsules ity of e (CREON) 00:00: by mouth [place] 12,000-38,[place] 00 in the Medica l 00 -60,000 morning Branch unit and 2 capsule capsules at noon and 2 capsules in the evening. Take with meals. budesonide Yes [id number] .5mg Inhale 2 Univers 0.5 mg/2 mL 8-12 mL in the ity of nebulizer 00:00: morning [place] solution 00 and 2 mL Medical in the Branch evening. lipase-prot 0 Yes [id number] 2{capsu Take 2 Univers ease-amylas 8-12 le} capsules ity of e (CREON) 00:00: by mouth [place] 12,000-38,0 00 in the Medica l 00 -60,000 morning Branch unit and 2 capsule capsules at noon and 2 capsules in the evening. Take with meals. budesonide Yes [id number] .5mg Inhale 2 Univers 0.5 mg/2 mL 8-12 mL in the ity of nebulizer 00:00: morning [place] solution 00 and 2 mL Medical in the Branch evening. lipase-prot 0 Yes [id number] 2{capsu Take 2 Univers ease-amylas 8-12 le} capsules ity of e (CREON) 00:00: by mouth [place] 12,000-38,0 00 in the Medica l 00 -60,000 morning Branch unit and 2 capsule capsules at noon and 2 capsules in the evening. Take with meals. budesonide Yes [id number] .5mg Inhale 2 Univers 0.5 mg/2 mL 8-12 mL in the ity of nebulizer 00:00: morning [place] solution 00 and 2 mL Medical in the Branch evening. lipase-prot 0 Yes [id number] 2{capsu Take 2 Univers ease-amylas 8-12 le} capsules ity of e (CREON) 00:00: by mouth [place] 12,000-38,0 00 in the Medica l 00 -60,000 morning Branch unit and 2 capsule capsules at noon and 2 capsules in the evening. Take with meals. budesonide Yes [id number] .5mg Inhale 2 [facility] 0.5 mg/2 mL 8-12 mL in the ity of nebulizer 00:00: morning [place] solution 00 and 2 mL Medical in the Branch evening. lipase-prot 0 Yes [id number] 2{capsu Take 2 [facility] ease-amylas 8-12 le} capsules ity of e (CREON) 00:00[place] 12[place] 00 in the Medica l 00 -60,000 morning Branch unit and 2 capsule capsules at noon and 2 capsules in the evening. Take with meals. budesonide 0 Yes [id number] .5mg Inhale 2 [facility] 0.5 mg/2 mL 8-12 mL in the ity of nebulizer 00:00: morning [place] solution 00 and 2 mL Medical in the Branch evening. lipase-prot 0 Yes [id number] 2{capsu Take 2 [facility] ease-amylas 8-12 le} capsules ity of e (CREON) 00:00: [place] 12[place]000[place]38,[place] 00 in the Medica l 00 -60,000 morning Branch unit and 2 capsule capsules at noon and 2 capsules in the evening. Take with meals. budesonide Yes [id number] .5mg Inhale 2 [facility] 0.5 mg/2 mL 8-12 mL in the ity of nebulizer 00:00: morning [place] solution 00 and 2 mL Medical in the Branch evening. lipase-prot Yes [id number] 2{capsu Take 2 [facility] ease-amylas 8-12 le} capsules ity of e (CREON) 00:00: [place] 12[place]000[place]38,[place] 00 in the Medica l 00 -60,000 morning Branch unit and 2 capsule capsules at noon and 2 capsules in the evening. Take with meals. budesonide Yes [id number] .5mg Inhale 2 [facility] 0.5 mg/2 mL 8-12 mL in the ity of nebulizer 00:00: morning [place] solution 00 and 2 mL Medical in the Branch evening. lipase-prot 0 Yes [id number] 2{capsu Take 2 [facility] ease-amylas 8-12 le} capsules ity of e (CREON) 00:00: [place] 12[place]000[place]38,[place] 00 in the Medica l 00 -60,000 morning Branch unit and 2 capsule capsules at noon and 2 capsules in the evening. Take with meals. budesonide Yes [id number] .5mg Inhale 2 [facility] 0.5 mg/2 mL 8-12 mL in the ity of nebulizer 00:00: morning [place] solution 00 and 2 mL Medical in the Branch evening. lipase-prot 0 Yes [id number] 2{capsu Take 2 [facility] ease-amylas 8-12 le} capsules ity of e (CREON) 00:00: [place] 12[place]000[place]38,[place] 00 in the Medica l 00 -60,000 morning Branch unit and 2 capsule capsules at noon and 2 capsules in the evening. Take with meals. budesonide 0 Yes [id number] .5mg Inhale 2 [facility] 0.5 mg/2 mL 8-12 mL in the ity of nebulizer 00:00: morning [place] solution 00 and 2 mL Medical in the Branch evening. lipase-prot 2021-0 Yes [id number] 2{capsu Take 2 [facility] ease-amylas 8-12 le} capsules ity of e (CREON) 00:00: [place] 12[place]000-38,[place] 00 in the Medica l 00 -60,000 morning Branch unit and 2 capsule capsules at noon and 2 capsules in the evening. Take with meals. budesonide Yes [id number] .5mg Inhale 2 [facility] 0.5 mg/2 mL 8-12 mL in the ity of nebulizer 00:00: morning [place] solution 00 and 2 mL Medical in the Branch evening. lipase-prot 2021-0 Yes [id number] 2{capsu Take 2 [facility] ease-amylas 8-12 le} capsules ity of e (CREON) 00:00: [place] 12,000[place]38,[place] 00 in the Medica l 00 -60,000 morning Branch unit and 2 capsule capsules at noon and 2 capsules in the evening. Take with meals. budesonide Yes [id number] .5mg Inhale 2 [facility] 0.5 mg/2 mL 8-12 mL in the ity of nebulizer 00:00: morning [place] solution 00 and 2 mL Medical in the Branch evening. lipase-prot 2021-0 Yes [id number] 2{capsu Take 2 [facility] ease-amylas 8-12 le} capsules ity of e (CREON) 00:00: [place] 12,000-38,[place] 00 in the Medica l 00 -60,000 morning Branch unit and 2 capsule capsules at noon and 2 capsules in the evening. Take with meals. budesonide 0 Yes [id number] .5mg Inhale 2 [facility] 0.5 mg/2 mL 8-12 mL in the ity of nebulizer 00:00: morning [place] solution 00 and 2 mL Medical in the Branch evening. budesonide Yes [id number] .5mg Inhale 2 [facility] 0.5 mg/2 mL 8-12 mL in the ity of nebulizer 00:00: morning [place] solution 00 and 2 mL Medical in the Branch evening. Budesonide, 0 Yes .5mg Inhale 0.5 [facility] Inhalation, 8-12 mg into [facility] 0.5 MG/2ML 00:00: the lungs - inhalation 00 2 times [place] a Suspension daily l Budesonide, 0 Yes .5mg Inhale 0.5 [facility] Inhalation, 8-12 mg into [facility] 0.5 MG/2ML 00:00: the lungs - inhalation 00 2 times [place] a Suspension daily l lipase-prot 2021- No [id number] 2{capsu Take 2 [facility] ease-amylas 8-12 12-13 le} capsules ity of e (CREON) 00:00: 00:00 by mouth [place] 12,000-38,0 00 :00 in the Medica l 00 -60,000 morning Branch unit and 2 capsule capsules at noon and 2 capsules in the evening. Take with meals. lipase-prot 2021- No [id number] 2{capsu Take 2 [facility] ease-amylas 8-12 12-13 le} capsules ity of e (CREON) 00:00: 00:00 by mouth [place] 12,000-38,0 00 :00 in the Medica l 00 -60,000 morning Branch unit and 2 capsule capsules at noon and 2 capsules in the evening. Take with meals. Budesonide, 0 2021- No .5mg Inhale 0.5 [place] Inhalation, 812 12-07 mg into [facility] 0.5 MG/2ML 00:00: 00:00 the lungs - inhalation 00 :00 2 times [place] a Suspension daily l cholecalcif 0 Yes [id number] 1000U Take 1 [facility] [place], 8-01 tablet by ity of vitamin D3, 00:00: mouth in [place] 25 mcg 00 the Medical (1,000 morning. Branch unit) tablet cholecalcif Yes [id number] 1000U Take 1 [facility] [place], 8-01 tablet by ity of vitamin D3, 00:00: mouth in [place] 25 mcg 00 the Medical (000 morning. Branch unit) tablet cholecalcif 2022-0 Yes [id number] 1000U Take 1 [facility] [place], 8-01 tablet by ity of vitamin D3, 00:00: mouth in [place] 25 mcg 00 the Medical ( morning. Branch unit) tablet cholecalcif 2022-0 Yes [id number] 1000U Take 1 [facility] [place], 8-01 tablet by ity of vitamin D3, 00:00: mouth in [place] 25 mcg 00 the Medical ( morning. Branch unit) tablet cholecalcif 2022-0 Yes [id number] 1000U Take 1 [facility] [place], 8-01 tablet by ity of vitamin D3, 00:00: mouth in [place] 25 mcg 00 the Medical ( morning. Branch unit) tablet cholecalcif 2022-0 Yes [id number] 1000U Take 1 [facility] [place], 8-01 tablet by ity of vitamin D3, 00:00: mouth in [place] 25 mcg 00 the Medical ( morning. Branch unit) tablet cholecalcif 2022-0 Yes [id number] 1000U Take 1 [facility] [place], 8-01 tablet by ity of vitamin D3, 00:00: mouth in [place] 25 mcg 00 the Medical ( morning. Branch unit) tablet cholecalcif 2022-0 Yes [id number] 1000U Take 1 [facility] [place], 8-01 tablet by ity of vitamin D3, 00:00: mouth in [place] 25 mcg 00 the Medical ( morning. Branch unit) tablet cholecalcif 2022-0 Yes [id number] 1000U Take 1 [facility] [place], 8-01 tablet by ity of vitamin D3, 00:00: mouth in [place] 25 mcg 00 the Medical ( morning. Branch unit) tablet cholecalcif 2022-0 Yes [id number] 1000U Take 1 [facility] [place], 8-01 tablet by ity of vitamin D3, 00:00: mouth in [place] 25 mcg 00 the Medical (000 morning. Branch unit) tablet cholecalcif 2022-0 Yes [id number] 1000U Take 1 [facility] [place], 8-01 tablet by ity of vitamin D3, 00:00: mouth in [place] 25 mcg 00 the Medical (,000 morning. Branch unit) tablet cholecalcif 2022-0 Yes [id number] 1000U Take 1 [facility] [place], 8- tablet by ity of vitamin D3, 00:00: mouth in [place] 25 mcg 00 the Medical (,000 morning. Branch unit) tablet cholecalcif 2022-0 Yes [id number] 1000U Take 1 [facility] [place], 8- tablet by ity of vitamin D3, 00:00: mouth in [place] 25 mcg 00 the Medical (,000 morning. Branch unit) tablet cholecalcif 2022-0 2022- No [id number] 1000U Take 1 [facility] [place], 8 12- tablet by ity of vitamin D3, 00:00: 00:00 mouth in [place] 25 mcg 00 :00 the Medical (,000 morning. Branch unit) tablet cholecalcif 2022-0 2022- No [id number] 1000U Take 1 [facility] [place], 02-27 tablet by ity of vitamin D3, 00:00: 00:00 mouth in [place] 25 mcg 00 :00 the Medical (000 morning. Branch unit) tablet ondansetron 2022-0 Yes [id number] 4mg Take 1 [facility] 4 mg 7-31 tablet by ity of disintegrat 00:00: mouth [place] ing tablet 00 every 6 Medica l (six) Branch hours as needed for Nausea and Vomiting (N/V). ondansetron 2022-0 Yes [id number] 4mg Take 1 [facility] 4 mg 7-31 tablet by ity of disintegrat 00:00: mouth [place] ing tablet 00 every 6 Medica l (six) Branch hours as needed for Nausea and Vomiting (N/V). ondansetron 2022-0 Yes [id number] 4mg Take 1 [facility] 4 mg 7-31 tablet by ity of disintegrat 00:00: mouth [place] ing tablet 00 every 6 Medica l (six) Branch hours as needed for Nausea and Vomiting (N/V). ondansetron 2022-0 Yes [id number] 4mg Take 1 [facility] 4 mg 7-31 tablet by ity of disintegrat 00:00: mouth [place] ing tablet 00 every 6 Medica l (six) Branch hours as needed for Nausea and Vomiting (N/V). ondansetron 2-0 Yes [id number] 4mg Take 1 [facility] 4 mg 7-31 tablet by ity of disintegrat 00:00: mouth [place] ing tablet 00 every 6 Medica l (six) Branch hours as needed for Nausea and Vomiting (N/V). ondansetron 2-0 Yes [id number] 4mg Take 1 [facility] 4 mg 7-31 tablet by ity of disintegrat 00:00: mouth [place] ing tablet 00 every 6 Medica l (six) Branch hours as needed for Nausea and Vomiting (N/V). ondansetron 2-0 Yes [id number] 4mg Take 1 [facility] 4 mg 7-31 tablet by ity of disintegrat 00:00: mouth [place] ing tablet 00 every 6 Medica l (six) Branch hours as needed for Nausea and Vomiting (N/V). ondansetron 2-0 Yes [id number] 4mg Take 1 [facility] 4 mg 7-31 tablet by ity of disintegrat 00:00: mouth [place] ing tablet 00 every 6 Medica l (six) Branch hours as needed for Nausea and Vomiting (N/V). ondansetron 2-0 Yes [id number] 4mg Take 1 [facility] 4 mg 7-31 tablet by ity of disintegrat 00:00: mouth [place] ing tablet 00 every 6 Medica l (six) Branch hours as needed for Nausea and Vomiting (N/V). ondansetron 2-0 Yes [id number] 4mg Take 1 [facility] 4 mg 7-31 tablet by ity of disintegrat 00:00: mouth [place] ing tablet 00 every 6 Medica l (six) Branch hours as needed for Nausea and Vomiting (N/V). ondansetron 2-0 Yes [id number] 4mg Take 1 [facility] 4 mg 7-31 tablet by ity of disintegrat 00:00: mouth [place] ing tablet 00 every 6 Medica l (six) Branch hours as needed for Nausea and Vomiting (N/V). ondansetron 2-0 Yes [id number] 4mg Take 1 [facility] 4 mg 7-31 tablet by ity of disintegrat 00:00: mouth [place] ing tablet 00 every 6 Medica l (six) Branch hours as needed for Nausea and Vomiting (N/V). ondansetron 2022-0 Yes [id number] 4mg Take 1 [facility] 4 mg 7-31 tablet by ity of disintegrat 00:00: mouth [place] ing tablet 00 every 6 Medica l (six) Branch hours as needed for Nausea and Vomiting (N/V). ondansetron 2022-0 Yes [id number] 4mg Take 1 [facility] 4 mg 7-31 tablet by ity of disintegrat 00:00: mouth [place] ing tablet 00 every 6 Medica l (six) Branch hours as needed for Nausea and Vomiting (N/V). ondansetron 2022-0 Yes [id number] 4mg Take 1 [facility] 4 mg 7-31 tablet by ity of disintegrat 00:00: mouth [place] ing tablet 00 every 6 Medica l (six) Branch hours as needed for Nausea and Vomiting (N/V). Ondansetron 2022-0 Yes 4mg Q.25D Take 4 mg [facility] (ZOFRAN) 4 7-31 by mouth [place] [facility] MG oral 00:00: every 6 - TABLET 00 hours as Externa DISPERSIBLE needed l Ondansetron 2022-0 Yes 4mg Q.25D Take 4 mg [facility] (ZOFRAN) 4 7-31 by mouth [place] [facility] MG oral 00:00: every 6 - TABLET 00 hours as Externa DISPERSIBLE needed l Ondansetron 2022-0 Yes 4mg Q.25D Take 4 mg [facility] (ZOFRAN) 4 7-31 by mouth [place] [facility] MG oral 00:00: every 6 - TABLET 00 hours as Externa DISPERSIBLE needed l Ondansetron 2022-0 Yes 4mg Q.25D Take 4 mg [facility] (ZOFRAN) 4 7-31 by mouth [place] [facility] MG oral 00:00: every 6 - TABLET 00 hours as Externa DISPERSIBLE needed l Ondansetron 2022-0 Yes 4mg Q.25D Take 4 mg [facility] (ZOFRAN) 4 7-31 by mouth [place] [facility] MG oral 00:00: every 6 - TABLET 00 hours as Externa DISPERSIBLE needed l levalbutero 2022-0 Yes [id number] 1.25mg Inhale [facility] l 1.25 mg/3 7-28 1.25 mg in it y of mL 00:00: the [place] nebulizer 00 morning Medical solution and 1.25 Branch mg at noon and 1.25 mg in the evening. levalbutero 2021-0 Yes [id number] 1.25mg Inhale [facility] l 1.25 mg/3 7-28 1.25 mg in it y of mL 00:00: the [place] nebulizer 00 morning Medical solution and 1.25 Branch mg at noon and 1.25 mg in the evening. levalbutero 2021-0 Yes [id number] 1.25mg Inhale [facility] l 1.25 mg/3 7-28 1.25 mg in it y of mL 00:00: the [place] nebulizer 00 morning Medical solution and 1.25 Branch mg at noon and 1.25 mg in the evening. levalbutero 2021-0 Yes [id number] 1.25mg Inhale [facility] l 1.25 mg/3 7-28 1.25 mg in it y of mL 00:00: the [place] nebulizer 00 morning Medical solution and 1.25 Branch mg at noon and 1.25 mg in the evening. levalbutero 2021-0 Yes [id number] 1.25mg Inhale [facility] l 1.25 mg/3 7-28 1.25 mg in it y of mL 00:00: the [place] nebulizer 00 morning Medical solution and 1.25 Branch mg at noon and 1.25 mg in the evening. levalbutero 2021-0 Yes [id number] 1.25mg Inhale [facility] l 1.25 mg/3 7-28 1.25 mg in it y of mL 00:00: the [place] nebulizer 00 morning Medical solution and 1.25 Branch mg at noon and 1.25 mg in the evening. levalbutero 2021-0 Yes [id number] 1.25mg Inhale [facility] l 1.25 mg/3 7-28 1.25 mg in it y of mL 00:00: the [place] nebulizer 00 morning Medical solution and 1.25 Branch mg at noon and 1.25 mg in the evening. levalbutero 2021-0 Yes [id number] 1.25mg Inhale [facility] l 1.25 mg/3 7-28 1.25 mg in it y of mL 00:00: the [place] nebulizer 00 morning Medical solution and 1.25 Branch mg at noon and 1.25 mg in the evening. levalbutero Yes [id number] 1.25mg Inhale [facility] l 1.25 mg/3 7-28 1.25 mg in it y of mL 00:00: the [place] nebulizer 00 morning Medical solution and 1.25 Branch mg at noon and 1.25 mg in the evening. levalbutero Yes [id number] 1.25mg Inhale [facility] l 1.25 mg/3 7-28 1.25 mg in it y of mL 00:00: the [place] nebulizer 00 morning Medical solution and 1.25 Branch mg at noon and 1.25 mg in the evening. levalbutero Yes [id number] 1.25mg Inhale [facility] l 1.25 mg/3 7-28 1.25 mg in it y of mL 00:00: the [place] nebulizer 00 morning Medical solution and 1.25 Branch mg at noon and 1.25 mg in the evening. levalbutero Yes [id number] 1.25mg Inhale [facility] l 1.25 mg/3 7-28 1.25 mg in it y of mL 00:00: the [place] nebulizer 00 morning Medical solution and 1.25 Branch mg at noon and 1.25 mg in the evening. levalbutero Yes [id number] 1.25mg Inhale [facility] l 1.25 mg/3 7-28 1.25 mg in it y of mL 00:00: the [place] nebulizer 00 morning Medical solution and 1.25 Branch mg at noon and 1.25 mg in the evening. Levalbutero Yes 1.25mg Inhale [place] l HCl 1.25 7-28 1.25 mg Sey[facility] d MG/3ML 00:00: into the - inhalation 00 lungs 3 [place] a Inhalant times l Solution daily levalbutero 2021- No [id number] 1.25mg Inhale [facility] l 1.25 mg/3 7-28 12-13 1.25 mg in i ty of mL 00:00: 00:00 the [place] nebulizer 00 :00 morning Medical solution and 1.25 Branch mg at noon and 1.25 mg in the evening. levalbutero 2021- No [id number] 1.25mg Inhale [facility] l 1.25 mg/3 02-23- 1.25 mg in i ty of mL 00:00: 00:00 the [place] nebulizer 00 :00 morning Medical solution and 1.25 Branch mg at noon and 1.25 mg in the evening. Levalbutero 2021- No 1.25mg Inhale [place] l HCl 1.25 02-23 11- 1.25 mg [place] ld MG/3ML 00:00: 00:00 into the - inhalation 00 :00 lungs 3 [place] a Inhalant times l Solution daily albuterol Yes [id number] 2{puff} Inhale 2 [facility] 90 7-21 Puffs ity of mcg/actuati 00:00: every 6 [place] as on inhaler 00 (six) Medical hours as Branch needed for Wheezing or Shortness of Breath. ondansetron Yes [id number] 4mg Take 1 [facility] (ZOFRAN) 4 7-21 tablet by ity of mg tablet 00:00: mouth [place] every 8 Medical (eight) Branch hours as needed for Nausea and Vomiting (N/V). Nebulizer Yes [id number] Use as Un niru Accessories 7- directed ity of Kit 00:00: Medical Branch albuterol Yes [id number] 2{puff} Inhale 2 [facility] 90 7-21 Puffs ity of mcg/actuati 00:00: every 6 [place] as on inhaler 00 (six) Medical hours as Branch needed for Wheezing or Shortness of Breath. ondansetron Yes [id number] 4mg Take 1 [facility] (ZOFRAN) 4 7-21 tablet by ity of mg tablet 00:00: mouth [place] every 8 Medical (eight) Branch hours as needed for Nausea and Vomiting (N/V). Nebulizer Yes [id number] Use as Un niru Accessories 7-21 directed ity of Kit 00:00: [place] [facility] Branch albuterol Yes [id number] 2{puff} Inhale 2 [facility] 90 7-21 Puffs ity of mcg/actuati 00:00: every 6 [place] as on inhaler 00 (six) Medical hours as Branch needed for Wheezing or Shortness of Breath. ondansetron Yes [id number] 4mg Take 1 [facility] (ZOFRAN) 4 7-21 tablet by ity of mg tablet 00:00: mouth [place] 00 every 8 Medical (eight) Branch hours as needed for Nausea and Vomiting (N/V). Nebulizer 0 Yes [id number] Use as Un niru Accessories 7- directed ity of Kit 00:00: [place] Medical Branch albuterol 0 Yes [id number] 2{puff} Inhale 2 [facility] 90 7-21 Puffs ity of mcg/actuati 00:00: every 6 [place] as on inhaler 00 (six) Medical hours as Branch needed for Wheezing or Shortness of Breath. ondansetron 0 Yes [id number] 4mg Take 1 [facility] (ZOFRAN) 4 7-21 tablet by ity of mg tablet 00:00: mouth [place] 00 every 8 Medical (eight) Branch hours as needed for Nausea and Vomiting (N/V). Nebulizer 0 Yes [id number] Use as Un niru Accessories - directed ity of Kit 00:00: [place] [facility] Branch albuterol 0 Yes [id number] 2{puff} Inhale 2 [facility] 90 7-21 Puffs ity of mcg/actuati 00:00: every 6 [place] as on inhaler 00 (six) Medical hours as Branch needed for Wheezing or Shortness of Breath. ondansetron Yes [id number] 4mg Take 1 [facility] (ZOFRAN) 4 7-21 tablet by ity of mg tablet 00:00: mouth [place] 00 every 8 Medical (eight) Branch hours as needed for Nausea and Vomiting (N/V). Nebulizer 0 Yes [id number] Use as Un niru Accessories - directed ity of Kit 00:00: [place] [facility] Branch albuterol 0 Yes [id number] 2{puff} Inhale 2 [facility] 90 7-21 Puffs ity of mcg/actuati 00:00: every 6 [place] as on inhaler 00 (six) Medical hours as Branch needed for Wheezing or Shortness of Breath. ondansetron 0 Yes [id number] 4mg Take 1 [facility] (ZOFRAN) 4 7-21 tablet by ity of mg tablet 00:00: mouth [place] 00 every 8 Medical (eight) Branch hours as needed for Nausea and Vomiting (N/V). Nebulizer 0 Yes [id number] Use as Un niru Accessories 7- directed ity of Kit 00:00: [place] [facility] Branch albuterol 0 Yes [id number] 2{puff} Inhale 2 [facility] 90 7-21 Puffs ity of mcg/actuati 00:00: every 6 [place] as on inhaler 00 (six) Medical hours as Branch needed for Wheezing or Shortness of Breath. ondansetron Yes [id number] 4mg Take 1 [facility] (ZOFRAN) 4 7-21 tablet by ity of mg tablet 00:00: mouth [place] every 8 Medical (eight) Branch hours as needed for Nausea and Vomiting (N/V). Nebulizer 0 Yes [id number] Use as Un niru Accessories 7- directed ity of Kit 00:00: Medical Branch albuterol 0 Yes [id number] 2{puff} Inhale 2 [facility] 90 7-21 Puffs ity of mcg/actuati 00:00: every 6 [place] as on inhaler 00 (six) Medical hours as Branch needed for Wheezing or Shortness of Breath. ondansetron Yes [id number] 4mg Take 1 [facility] (ZOFRAN) 4 7-21 tablet by ity of mg tablet 00:00: mouth [place] 00 every 8 Medical (eight) Branch hours as needed for Nausea and Vomiting (N/V). Nebulizer 0 Yes [id number] Use as Un niru Accessories 7- directed ity of Kit 00:00: [place] [facility] Branch albuterol 0 Yes [id number] 2{puff} Inhale 2 [facility] 90 7-21 Puffs ity of mcg/actuati 00:00: every 6 [place] as on inhaler 00 (six) Medical hours as Branch needed for Wheezing or Shortness of Breath. ondansetron 0 Yes [id number] 4mg Take 1 [facility] (ZOFRAN) 4 7-21 tablet by ity of mg tablet 00:00: mouth [place] 00 every 8 Medical (eight) Branch hours as needed for Nausea and Vomiting (N/V). Nebulizer 0 Yes [id number] Use as Un niru Accessories - directed ity of Kit 00:00: [place] [facility] Branch albuterol Yes [id number] 2{puff} Inhale 2 [facility] 90 7-21 Puffs ity of mcg/actuati 00:00: every 6 [place] as on inhaler 00 (six) Medical hours as Branch needed for Wheezing or Shortness of Breath. ondansetron Yes [id number] 4mg Take 1 [facility] (ZOFRAN) 4 7-21 tablet by ity of mg tablet 00:00: mouth [place] 00 every 8 Medical (eight) Branch hours as needed for Nausea and Vomiting (N/V). Nebulizer Yes [id number] Use as Un niru Accessories 02-16 directed ity of Kit 00:00: Medical Branch albuterol Yes [id number] 2{puff} Inhale 2 [facility] 90 7-21 Puffs ity of mcg/actuati 00:00: every 6 [place] as on inhaler 00 (six) Medical hours as Branch needed for Wheezing or Shortness of Breath. ondansetron Yes [id number] 4mg Take 1 [facility] (ZOFRAN) 4 7-21 tablet by ity of mg tablet 00:00: mouth [place] every 8 Medical (eight) Branch hours as needed for Nausea and Vomiting (N/V). Nebulizer 0 Yes [id number] Use as Un niru Accessories 02-16 directed ity of Kit 00:00: [place] [facility] Branch albuterol Yes [id number] 2{puff} Inhale 2 [facility] 90 7-21 Puffs ity of mcg/actuati 00:00: every 6 [place] as on inhaler 00 (six) Medical hours as Branch needed for Wheezing or Shortness of Breath. ondansetron Yes [id number] 4mg Take 1 [facility] (ZOFRAN) 4 7-21 tablet by ity of mg tablet 00:00: mouth [place] 00 every 8 Medical (eight) Branch hours as needed for Nausea and Vomiting (N/V). Nebulizer 0 Yes [id number] Use as Un niru Accessories 02-16 directed ity of Kit 00:00: [place] [facility] albuterol 0 Yes [id number] 2{puff} Inhale 2 [facility] 90 7-21 Puffs ity of mcg/actuati 00:00: every 6 [place] as on inhaler 00 (six) Medical hours as Branch needed for Wheezing or Shortness of Breath. ondansetron 0 Yes [id number] 4mg Take 1 [facility] (ZOFRAN) 4 7-21 tablet by ity of mg tablet 00:00: mouth [place] 00 every 8 Medical (eight) Branch hours as needed for Nausea and Vomiting (N/V). Nebulizer 0 Yes [id number] Use as Un niru Accessories - directed ity of Kit 00:00: Medical Branch albuterol 0 Yes [id number] 2{puff} Inhale 2 [facility] 90 7-21 Puffs ity of mcg/actuati 00:00: every 6 [place] as on inhaler 00 (six) Medical hours as Branch needed for Wheezing or Shortness of Breath. ondansetron 0 Yes [id number] 4mg Take 1 [facility] (ZOFRAN) 4 7-21 tablet by ity of mg tablet 00:00: mouth [place] every 8 Medical (eight) Branch hours as needed for Nausea and Vomiting (N/V). Nebulizer 0 Yes [id number] Use as Un niru Accessories - directed ity of Kit 00:00: Medical Branch albuterol 0 Yes [id number] 2{puff} Inhale 2 [facility] 90 7-21 Puffs ity of mcg/actuati 00:00: every 6 [place] as on inhaler 00 (six) Medical hours as Branch needed for Wheezing or Shortness of Breath. ondansetron Yes [id number] 4mg Take 1 [facility] (ZOFRAN) 4 7-21 tablet by ity of mg tablet 00:00: mouth [place] every 8 Medical (eight) Branch hours as needed for Nausea and Vomiting (N/V). Nebulizer 0 Yes [id number] Use as Un niru Accessories - directed ity of Kit 00:00: Medical Branch Albuterol 0 Yes 2{puff} Q.25D Inhale 2 [facility] HFA 108 (90 7-21 puffs into [employer]) 00:00: the lungs - MCG/ACT IN 00 every 6 [place] a AERS hours as l needed Respiratory 2021-0 Yes Use as Naty ey Therapy 7-21 directed [facility] [employer] 00:00: - ([place] Baby 00 Externa Conversion l Kit) does not apply Misc Albuterol 2021-0 Yes 2{puff} Q.25D Inhale 2 [facility] HFA 108 (90 7-21 puffs into [employer]) 00:00: the lungs - MCG/ACT IN 00 every 6 [place] a AERS hours as l needed Respiratory 2021-0 Yes Use as Naty ey Therapy 7-21 directed [employer] 00:00: - ([place] [facility] 00 Externa Conversion l Kit) does not apply Misc Albuterol 2021-0 Yes 2{puff} Q.25D Inhale 2 [facility] HFA 108 (90 7-21 puffs into [employer]) 00:00: the lungs - MCG/ACT IN 00 every 6 [place] a AERS hours as l needed Respiratory 2021-0 Yes Use as Naty ey Therapy 7-21 directed [employer] [employer] 00:00: - ([place] [facility] 00 Externa Conversion l Kit) does not apply Misc Albuterol 2021-0 Yes 2{puff} Q.25D Inhale 2 [facility] HFA 108 (90 7-21 puffs into [employer]) 00:00: the lungs - MCG/ACT IN 00 every 6 [place] a AERS hours as l needed Respiratory 2021-0 Yes Use as Naty ey Therapy 7-21 directed [employer] [employer] 00:00: - ([place] Baby 00 Externa Conversion l Kit) does not apply Misc Albuterol 2021-0 Yes 2{puff} Q.25D Inhale 2 [facility] HFA 108 (90 7-21 puffs into [employer]) 00:00: the lungs - MCG/ACT IN 00 every 6 [place] a AERS hours as l needed Respiratory 2021-0 Yes Use as Naty ey Therapy 7-21 directed [employer] 00:00: - ([place] Baby 00 Externa Conversion l Kit) does not apply Misc ESOMEPRAZOL 2021-0 Yes [id number] 40mg TAKE 1 [facility] E 40 mg 7-18 CAPSULE BY ity of capsule 00:00: MOUTH [place] 00 DAILY WITH Medical BREAKFAST. Branch ESOMEPRAZOL 2022-0 Yes [id number] 40mg TAKE 1 [facility] E 40 mg 7-18 CAPSULE BY ity of capsule 00:00: MOUTH [place] 00 DAILY WITH Medical BREAKFAST. Branch ESOMEPRAZOL Yes [id number] 40mg TAKE 1 [facility] E 40 mg 7-18 CAPSULE BY ity of capsule 00:00: MOUTH [place] 00 DAILY WITH Medical BREAKFAST. Branch ESOMEPRAZOL Yes [id number] 40mg TAKE 1 [facility] E 40 mg 7-18 CAPSULE BY ity of capsule 00:00: MOUTH [place] 00 DAILY WITH Medical BREAKFAST. Branch ESOMEPRAZOL Yes [id number] 40mg TAKE 1 Univers E 40 mg 7-18 CAPSULE BY ity of capsule 00:00: MOUTH [place] 00 DAILY WITH Medical BREAKFAST. Branch ESOMEPRAZOL Yes [id number] 40mg TAKE 1 Univers E 40 mg 7-18 CAPSULE BY ity of capsule 00:00: MOUTH [place] 00 DAILY WITH Medical BREAKFAST. Branch ESOMEPRAZOL Yes [id number] 40mg TAKE 1 Univers E 40 mg 7-18 CAPSULE BY ity of capsule 00:00: MOUTH [place] 00 DAILY WITH Medical BREAKFAST. Branch ESOMEPRAZOL Yes [id number] 40mg TAKE 1 Univers E 40 mg 7-18 CAPSULE BY ity of capsule 00:00: MOUTH [place] 00 DAILY WITH Medical BREAKFAST. Branch ESOMEPRAZOL Yes [id number] 40mg TAKE 1 Univers E 40 mg 7-18 CAPSULE BY ity of capsule 00:00: MOUTH [place] 00 DAILY WITH Medical BREAKFAST. Branch ESOMEPRAZOL Yes [id number] 40mg TAKE 1 Univers E 40 mg 7-18 CAPSULE BY ity of capsule 00:00: MOUTH [place] 00 DAILY WITH Medical BREAKFAST. Branch ESOMEPRAZOL Yes [id number] 40mg TAKE 1 Univers E 40 mg 7-18 CAPSULE BY ity of capsule 00:00: MOUTH [place] 00 DAILY WITH Medical BREAKFAST. Branch ESOMEPRAZOL Yes [id number] 40mg TAKE 1 Univers E 40 mg 7-18 CAPSULE BY ity of capsule 00:00: MOUTH [place] 00 DAILY WITH Medical BREAKFAST. Branch ESOMEPRAZOL Yes [id number] 40mg TAKE 1 Univers E 40 mg 7-18 CAPSULE BY ity of capsule 00:00: MOUTH [place] 00 DAILY WITH Medical BREAKFAST. Branch ESOMEPRAZOL Yes [id number] 40mg TAKE 1 Univers E 40 mg 7-18 CAPSULE BY ity of capsule 00:00: MOUTH [place] 00 DAILY WITH Medical BREAKFAST. Branch ESOMEPRAZOL Yes [id number] 40mg TAKE 1 Univers E 40 mg 7-18 CAPSULE BY ity of capsule 00:00: MOUTH 00 DAILY WITH Medical BREAKFAST. Branch Esomeprazol 2021- No 40mg Take 40 mg Sneha e Magnesium 7-18 05-31 by mouth Sey bold 40 MG oral 00:00: 00:00 daily - Delayed 00 :00 (with Externa Release breakfast) l Capsule promethazin Yes Take by Uni vers e 5-19 mouth. ity of (PHENERGAN) 15:57: [place] 12.5 mg 37 MD tablet [facility] promethazin Yes Take by Uni vers e 5-19 mouth. ity of (PHENERGAN) 15:57: [place] 12.5 mg 37 [facility] chole[facility]- No 400U Take 400 U nivers [place], 4-07 04-07 Units by ity of vitamin D3, 17:19: 00:00 mouth. Rajeev as (VITAMIN 10 :00 MD D3) 5,000 Anderso units tab n tablet [facility] cholecalcif 2021- No 400U Take 400 U nivers [place], 4-07 04-07 Units by ity of vitamin D3, 17:19: 00:00 mouth. Rajeev as (VITAMIN 10 :00 MD D3) 5,000 [place] units tab n tablet [facility] [place] diazePAM Yes 5mg Take 5 mg Univ ers (VALIUM) 5 4-07 by mouth 4 ity of mg tablet 17:18: (four) [place] 40 times a MD day. As Anderso needed [facility] [place] diazePAM Yes 5mg Take 5 mg Univ ers (VALIUM) 5 4-07 by mouth 4 ity of mg tablet 17:18: (four) [place] 40 times a MD day. As Anderso needed [facility] esomeprazol Yes 40mg Take 40 mg [...] 50 mg 09:25: [place] tab 16 MD [facility] magnesium Yes 4{tbl} Take 4 Univ ers oxide-prote 2-28 tablets by it y of in complex 09:25: mouth [place] (Mg-Plus-Pr 16 daily. MD carolyn Jaimeo Complex) n 133 mg Cancer tablet Center cholecalcif Yes 2000U Take 2,000 [facility] [place], 2-28 Units by ity of vitamin D3, 09:25: [place]. [place] (VITAMIN 16 MD D3) 2,000 Anderso units tab n tablet Cancer Center ascorbic Yes 500mg Take 500 Univ ers acid, 2-28 mg by ity of vitamin C, 09:25: mouth [place] (vitamin C) 16 daily. Pt 100 mg can't Anderso tablet remember n the dose Cancer Center esomeprazol Yes 40mg Take 40 [...] 09:25: [place] tab 16 MD Jace yoder [facility] magnesium Yes 4{tbl} Take 4 Univ ers oxide-prote 2-28 tablets by it y of in complex 09:25: mouth [place] (Mg-Plus-Pr 16 daily. MD carolyn [facility] Complex) n [address] [facility] cholecalcif Yes 2000U Take 2,000 Univers [place], 2-28 Units by ity of vitamin D3, 09:25: [place] (VITAMIN 16 MD D3) 2,000 Anderso units tab n tablet [facility] [place] ascorbic Yes 500mg Take 500 Univ ers acid, 2-28 mg by ity of vitamin C, 09:25: mouth [place] (vitamin C) 16 daily. Pt 100 mg can't Anderso tablet remember n the dose Cancer [place] ketoconazol 2022- No Seborrhea Apply Univers e (NIZORAL) 09-26 capitis topically ity of 2% shampoo 00:00: 05:59 to [place] 00 :00 affected MD area(s) 3 Anderso (three) n times a Cancer week Center Sunday, Sunday and Sunday. Leave in scalp for 5 minutes before washing off ketoconazol 2022- No Seborrhea Apply Univers e (NIZORAL) 09-26 capitis topically ity of 2% shampoo 00:00: 05:59 to [place] 00 :00 affected MD area(s) 3 Anderso (three) n times a Cancer week Center Sunday, Sunday and Sunday. Leave in scalp for 5 minutes before washing off silver 2021- No Intertrigo Apply Uni vers sulfadiazin 09-26-15 topically it y of e 00:00: 04:59 to [place] (Silvadene) 00 :00 affected MD 1% cream area(s) Anderso twice n daily for Cancer 14 days. Center Or until rash clears silver 2021- No Intertrigo Apply Uni vers sulfadiazin 09-26-15 topically it y of e 00:00: 04:59 to [place] (Silvadene) 00 :00 affected MD 1% cream area(s) Anderso twice n daily for Cancer 14 days. Center Or until rash clears carisoprodo 2021- No 350mg Take 350 Univers l (SOMA) 2-18 02-18 mg by ity of 350 mg 09:06: 00:00 mouth 4 [place] tablet 18 :00 (four) MD times a Anderso day as n needed for Cancer muscle Center spasms. carisoprodo 2021- No 350mg Take 350 Univers [...] pain. Center Taking 5/ 300 mg prn HYDROcodone 2021- No 1{tbl} Take 1 U nivers -acetaminop 2-18 02-18 tablet by it y of hen (NORCO) 09:06: 00:00 [place] 5 mg-325 mg 05 :00 every 6 MD per tablet (six) Anderso hours as n needed for Cancer mild pain. Center Taking 5/ 300 mg prn clonazePAM 2021- No 1mg Take 1 mg U nivers (KlonoPIN) 2-18 02-18 by mouth ity of 1 mg tablet 09:06: 00:00 daily. Rajeev as 01 :00 Reported MD on Anderso 10/30/2016 n Cancer Center clonazePAM 2021- No 1mg Take 1 mg U nivers (KlonoPIN) 2-18 02-18 by mouth ity of 1 mg tablet 09:06: 00:00 daily. Rajeev as 01 :00 Reported MD on [place] 10/30/2016 n Cancer Center ondansetron Yes 2{tbl} 2 tablets Univers (ZOFRAN) 8 2-11 3 (three) ity of mg tablet 00:00: times a [place] day. MD Jace yoder Cancer Center ondansetron Yes 2{tbl} 2 tablets Univers (ZOFRAN) 8 2-11 3 (three) ity of mg tablet 00:00: times a [place] day. MD Jace yoder [facility] Center fluconazole 2021- No Candidiasis 100mg Take 1 Univers (Diflucan) 08-20 of skin tablet ity of 100 mg 00:00: 05:59 (100 mg) [place] tablet 00 :00 by mouth MD daily for Anderso 21 days. n [facility] fluconazole 2021- No Candidiasis 100mg Take 1 Univers (Diflucan) 08-20 of skin tablet ity of 100 mg 00:00: 05:59 (100 mg) [place] tablet 00 :00 by mouth daily for Anderso 21 days. n [facility] phenazopyri Yes 100mg Take 100 B aylor dine 1-20 mg by [place] (PYRIDIUM) 13:50: mouth of 100 MG 48 every 6 Medicin tablet hours as e needed. 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 Medicin tablet e pantoprazol Yes 40mg Take 40 mg Mac e 1-16 by mouth [place] (PROTONIX) 00:00: daily. of 40 MG 00 Medicin tablet e Pantoprazol 2021- No 40mg Take 40 mg Sneha e Sodium 40 1-16 -09 by mouth Sey bold MG oral 00:00: 00:00 daily - Tablet 00 :00 Externa Delayed l Response HYDROcodone 2021- No Chronic 1{tbl} Take 1 Univers -acetaminop 1-16 02-18 pain tablet by nicole (Nunda) 00:00: 00:00 [place] 5 mg-325 [...] Cancer needed for Center muscle spasms. dicyclomine 2021- No Chronic 10mg Take 1 Univers (BENTYL) 10 08-14 pain capsule ity of mg capsule 00:00: 00:00 (10 mg) by [place] 00 :00 mouth MD every 8 Anderso (eight) n hours as Cancer needed Center (abdominal cramps). pantoprazol 2021- No Nausea 40mg Take 1 U nivers e 08-14 tablet (40 ity of (Protonix) 00:00: 00:00 mg) [place] 40 mg EC 00 :00 mouth MD tablet every Anderso morning n before Cancer breakfast. Center HYDROcodone 2021- No Chronic 1{tbl} Take 1 Univers -acetaminop 08-14 pain tablet by it dean (Nunda) 00:00: 00:00 mouth [place] 5 mg-325 [...] Cancer needed for Center muscle spasms. dicyclomine 2021- No Chronic 10mg Take 1 Univers (BENTYL) 10 08-14 pain capsule ity of mg capsule 00:00: 00:00 (10 mg) by [place] 00 :00 mouth MD every 8 Anderso (eight) n hours as Cancer needed Center (abdominal cramps). pantoprazol 2021- No Nausea 40mg Take 1 U nivers e 1-16 02-18 tablet (40 ity of (Protonix) 00:00: 00:00 mg) by L[place] dominguez 40 mg EC 00 :00 mouth MD tablet every Anderso morning n before Cancer breakfast. Center fluticasone No Chronic 1{puff} Inhale 1 [facility] propionate- 08-14 pain puff by ity of salmeterol 00:00: 05:59 mouth [place] (Advair 00 :00 twice MD Diskus) 100 daily for And erso mcg-50 30 days. n mcg/inhalat Cancer ion diskus Center inhaler fluticasone No Chronic 1{puff} Inhale 1 [facility] propionate- 08-14 pain puff by ity of salmeterol 00:00: 05:59 mouth [place] (Advair 00 :00 twice MD Diskus) 100 daily for And erso mcg-50 30 days. n mcg/inhalat Cancer ion diskus [place] inhaler levoFLOXaci 2021- No Urinary 250mg Take 1 [facility] n 08-14 tract tablet ity of (LEVAQUIN) 00:00: 05:59 infection, (250 mg) [place] 250 mg 00 :00 not by mouth MD tablet otherwise daily for And erso specified 21 days. n Cancer [place] levofloxaci 2021- No 250mg Take 250 [facility] n 08-14 mg by [place] (LEVAQUIN) 00:00: 05:59 mouth of 250 MG 00 :00 daily. Medicin tablet e levoFLOXaci No Urinary 250mg Take 1 [facility] n 08-14 tract tablet ity of (LEVAQUIN) 00:00: 05:59 infection, (250 mg) [place] 250 mg 00 :00 not by mouth MD tablet otherwise daily for And erso specified 21 days. n Cancer Center promethazin Yes 25mg Take 25 mg Mac e 1-04 by mouth [place] (PHENERGAN) 00:00: daily. of 25 MG 00 Medicin tablet e potassium 2020-07 Yes 20meq Take 20 [place] chloride SA 2-21 mEq by [place] (K-DUR, 00:00: mouth of KLOR-CON 00 daily. Medicin M20) 20 MEQ e tablet carisoprodo 2020-07 Yes [id number] 350mg Q.25D Take 1 UT l (Soma) 2-15 tablet Health 350 MG 00:00: (350 mg tablet 00 total) by mouth 4 (four) times a day for 14 days. Take one and one-half tablet every 6 hours. carisoprodo 2020-07 Yes 350mg Take 350 B aylor l (SOMA) 2-15 mg by [place] 350 MG 00:00: mouth 6 of tablet 00 times Medicin daily. e HYDROcodone 2020-07- No [id number] 2{tbl} Q.25D Take 2 UT -acetaminop 2-15 01-05 tablets by H ealth hen (Nunda) 00:00: 05:59 mouth 4 5-325 MG 00 [...] (Phenergan) 00:00: 25 MG 00 tablet ondansetron 2021-1 Yes 4mg Take 4 mg B aylor (ZOFRAN) 8 2-04 by mouth Colle ge mg tablet 00:00: two times of 00 daily. Medicin e Ibuprofen 2020-07 Yes Sneha 200 MG oral 2-01 Seybold Capsule 00:00: - 00 Externa l Ibuprofen 2020-07 Yes Sneha 200 MG oral 2-01 Seybold Capsule 00:00: - 00 Externa l Ibuprofen 2020-07 Yes Sneha 200 MG oral [...] of 00 Medicin e Advair 2020-07 Yes [id number] INHALE ONE [facility] Diskus 1-23 (1) PUFF Health 100-50 00:00: BY MOUTH MCG/DOSE 00 TWICE diskus DAILY. inhaler Advair 2020-07 Yes [id number] INHALE ONE UT Diskus 1-23 (1) PUFF Health 100-50 00:00: BY MOUTH MCG/DOSE 00 TWICE diskus DAILY. inhaler dicyclomine 2020-07 Yes [id number] TAKE 1 UT (Bentyl) 10 0-21 CAPSULE BY He alth MG capsule 00:00: MOUTH 00 EVERY 4 HOURS dicyclomine 2020-07 Yes [id number] TAKE 1 UT (Bentyl) 10 0-21 CAPSULE BY He alth MG capsule 00:00: MOUTH 00 EVERY 4 HOURS fluconazole 2020-07 Yes [id number] TAKE 1 U T (Diflucan) 0-14 TABLET BY Heal th 150 MG 00:00: MOUTH ONCE tablet 00 DAILY FOR 10 DAYS fluconazole 2020-07 Yes [id number] TAKE 1 U T (Diflucan) 0-14 TABLET BY Heal th 150 MG 00:00: MOUTH ONCE tablet 00 DAILY FOR 10 DAYS lidocaine Yes [facility] (Xylocaine) 4-12 Health 2 % 00:00: solution 00 Erythromyci Erythromyci 2019-07 Yes NOMI Q6H TAKE 1 UT n Base 250 n Base 250 0-09 SIRISHA TABLET [facility]ici MG Oral MG Oral 00:00: M.D. EVERY 6 ans Tablet Tablet 00 HOURS DAILY. Fluticasone Fluticasone 2019-0 Yes NOMI Q0.5D INHALE 1 UT -Salmeterol -Salmeterol 1-17 SIRISHA PUFF TWICE Physici 100-50 100-50 00:00: M.D. DAILY. ans MCG/DOSE MCG/DOSE 00 Inhalation Inhalation Aerosol Aerosol Powder Powder Breath Breath Activated Activated Carisoprodo Carisoprodo 2018-07 Yes NOMI Sig 1 1/2 UT l 350 MG l 350 MG 0-04 SIRISHA tab p.o. Physici Oral Tablet Oral Tablet 00:00: M.D. q6hr. for ans 00 pain Fluticasone Fluticasone Yes NOMI Q0.5D INHALE 1 UT -Salmeterol -Salmeterol 9-20 SIRISHA PUFF TWICE Physici 100-50 100-50 00:00: M.D. DAILY. ans MCG/DOSE MCG/DOSE 00 Inhalation Inhalation Aerosol Aerosol Powder Powder Breath Breath Activated Activated fluticasone Yes INHALE 1 UT -salmeterol 9-20 PUFF TWICE He alth (Advair 00:00: DAILY. Diskus) 00 100-50 MCG/DOSE diskus inhaler Erythromyci Erythromyci Yes NOMI Q6H TAKE 1 [...] 00:00: M.D. DAILY ans 00 DIRECTED. ADVAIR 2017-0 Yes daily as Univers DISKUS 4-27 needed. ity of 100-50 00:00: [place] mcg/dose 00 MD diskus Anderso inhaler n [facility] Center ADVAIR 2017-0 Yes daily as Univers DISKUS 4-27 needed. ity of 100-50 00:00: [place] mcg/dose 00 MD diskus Anderso inhaler n [facility] Fluconazole Fluconazole Yes NOMI TAKE UT 150 MG Oral 150 MG Oral 3-22 SIRISHA DIRECTED. Physici Tablet Tablet 00:00: M.D. ans 00 Fluticasone Fluticasone Yes NOMI INHALE 1 UT -Salmeterol -Salmeterol 3-17 SIRISHA PUFF TWICE Physici 100-50 100-50 00:00: M.D. DAILY. ans MCG/DOSE MCG/DOSE 00 Brand only Inhalation Inhalation Aerosol Aerosol Powder Powder Breath Breath Activated Activated Nystatin Nystatin Yes NOMI SWISH [place] [id number] 2-17 SIRISHA SPIT 5ML Phys ici UNIT/ML UNIT/ML 00:00: M.D. EVERY 12 ans Mouth/Throa Mouth/Throa 00 HOURS . t t Suspension Suspension potassium 2015-0 Yes 40meq QD Take 40 Meth [place] chloride 9-[address] (K-DUR) 20 20:58: mouth Hospit a MEQ CR 47 daily. l tablet dicyclomine 2015-0 Yes 10mg Q.25D Take 10 mg [facility] (BENTYL) 10 9-[address] MG capsule 20:58: (four) Hospi ta 47 times a l day before meals and nightly. carisoprodo 2015-0 Yes 525mg Q.25D Take 525 [facility] l (SOMA) 9-[address] 350 MG 20:58: mouth 4 Hospita tablet 47 (four) l times a day as needed for muscle spasms. potassium 2016-0 Yes 40meq QD Take 40 Meth [place] chloride 9-[address] (K-DUR) 20 20:58: mouth Hospit a MEQ CR 47 daily. l tablet dicyclomine 2015-0 Yes 10mg Q.25D Take 10 mg [facility] (BENTYL) 10 9-[address] MG capsule 20:58: (four) Hospi ta 47 times a l day before meals and nightly. carisoprodo 2016-0 Yes 525mg Q.25D Take 525 [facility] l (SOMA) 9-[address] 350 MG 20:58: mouth 4 Hospita tablet 47 (four) l times a day as needed for muscle spasms. HYDROcodone 2016-0 Yes 1{tbl} Q4H Take 1 Me thodi -acetaminop 9-[address] hen (NORCO) 20:58: mouth Hospi ta 5-325 mg 47 every 4 l per tablet (four) hours as needed for moderate pain. fluconazole 2016-0 Yes 150mg QD Take 150 M ethodi (DIFLUCAN) 9-[address] 100 MG 20:58: mouth Hospita tablet 47 daily. l HYDROcodone 2016-0 Yes 1{tbl} Q4H Take 1 Me thodi -acetaminop 9-[address] hen (NORCO) 20:58: mouth Hospi ta 5-325 mg 47 every 4 l per tablet (four) hours as needed for moderate pain. fluconazole 2016-0 Yes 150mg QD Take 150 M ethodi (DIFLUCAN) 9-[address] 100 MG 20:58: mouth Hospita tablet 47 daily. l PROAIR HFA 0 Yes INHALE TWO M ethodi 90 8-12 (2) st mcg/actuati 00:00: PUFF(S) BY Hospita on inhaler 00 MOUTH l EVERY FOUR HOURS NEEDED FOR WHEEZING, COUGHING OR SHORTNESS OF BREATH. clonAZEPAM 2015- Yes TAKE ONE Met hodi (KlonoPIN) -12 (1) st 1 MG tablet 00:00: TABLET(S) H ospita 00 BY MOUTH l FOUR TIMES A DAY. esomeprazol 2016-0 Yes 40mg Q.5D Take 40 mg [facility] e (NexIUM) 8-[address] 40 MG 00:00: (two) Hospita capsule 00 times a l day. PROAIR HFA 2015-0 Yes INHALE TWO M ethodi 90 8-12 (2) st mcg/actuati 00:00: PUFF(S) BY Hospita on inhaler 00 MOUTH l EVERY FOUR HOURS NEEDED FOR WHEEZING, COUGHING OR SHORTNESS OF BREATH. clonAZEPAM 2015-0 Yes TAKE ONE Met hodi (KlonoPIN) 03-10 (1) st 1 MG tablet 00:00: TABLET(S) H ospita 00 BY MOUTH l FOUR TIMES A DAY. esomeprazol 0 Yes 40mg Q.5D Take 40 mg [facility] e (NexIUM) [address] 40 MG 00:00: (two) Hospita capsule 00 times a l day. carisoprodo Yes 350mg Take 350 U nivers l (SOMA) 3-30 mg by ity of 350 mg 00:00: mouth. [place] tablet 00 [facility] carisoprodo Yes 350mg Take 350 U nivers l (SOMA) 3-30 mg by ity of 350 mg 00:00: mouth. [place] tablet 00 [facility] Immunizations Ordered Filled Immunization Date Status Comments [facility] e Immunization Name Name Remdesivir 2022-02-25 Completed University of 00:00:00 [facility] Remdesivir 2022-02-25 Completed University of 00:00:00 [facility] Remdesivir 2022-02-25 Completed University of 00:00:00 [facility] Remdesivir 2022-02-25 Completed University of 00:00:00 [facility] Remdesivir 2022-02-25 Completed University of 00:00:00 [facility] Remdesivir 2022-02-25 Completed University of 00:00:00 [facility] Remdesivir 2022-02-25 Completed University of 00:00:00 [facility] Remdesivir 2022-02-25 Completed University of 00:00:00 [facility] Remdesivir 2022-02-25 Completed University of 00:00:00 [facility] Remdesivir 2022-02-25 Completed University of 00:00:00 [facility] Remdesivir 2022-02-25 Completed University of 00:00:00 [facility] Remdesivir 2022-02-25 Completed University of 00:00:00 [facility] Remdesivir 2022-02-25 Completed University of 00:00:00 [facility] Remdesivir 2022-02-25 Completed University of 00:00:00 [facility] Remdesivir 2022-02-25 Completed University of 00:00:00 [facility] Remdesivir 2022-02-24 Completed University of 00:00:00 [place] [facility] Remdesivir 2022-02-24 Completed University of 00:00:00 [place] [facility] Remdesivir 2022-02-24 Completed University of 00:00:00 [place] [facility] Remdesivir 2022-02-24 Completed University of 00:00:00 [place] [facility] Remdesivir 2022-02-24 Completed University of 00:00:00 [place] [facility] Remdesivir 2022-02-24 Completed University of 00:00:00 [place] [facility] Remdesivir 2022-02-24 Completed University of 00:00:00 [place] [facility] Remdesivir 2022-02-24 Completed University of 00:00:00 [place] [facility] Remdesivir 2022-02-24 Completed University of 00:00:00 [place] [facility] Remdesivir 2022-02-24 Completed University of 00:00:00 [place] [facility] Remdesivir 2022-02-24 Completed University of 00:00:00 [place] [facility] Remdesivir 2022-02-24 Completed University of 00:00:00 [place] [facility] Remdesivir 2022-02-24 Completed University of 00:00:00 [place] [facility] Remdesivir 2022-02-24 Completed University of 00:00:00 [place] [facility] Remdesivir 2022-02-24 Completed University of 00:00:00 [place] [facility] Remdesivir 2022-02-24 Completed University of 00:00:00 [place] [facility] Remdesivir 2022-02-24 Completed University of 00:00:00 [place] [facility] Remdesivir 2022-02-24 Completed University of 00:00:00 [place] [facility] Remdesivir 2022-02-24 Completed University of 00:00:00 [place] [facility] Remdesivir 2022-02-24 Completed University of 00:00:00 [place] [facility] Remdesivir 2022-02-24 Completed University of 00:00:00 [place] [facility] Remdesivir 2022-02-24 Completed University of 00:00:00 [place] [facility] Remdesivir 2022-02-24 Completed University of 00:00:00 [place] [facility] Remdesivir 2022-02-24 Completed University of 00:00:00 [place] [facility] Remdesivir 2022-02-24 Completed University of 00:00:00 [place] [facility] Remdesivir 2022-02-24 Completed University of 00:00:00 [place] [facility] Remdesivir 2022-02-24 Completed University of 00:00:00 [place] [facility] Remdesivir 2022-02-24 Completed University of 00:00:00 [place] [facility] Remdesivir 2022-02-24 Completed University of 00:00:00 [place] [facility] Remdesivir 2022-02-24 Completed University of 00:00:00 [place] [facility] Remdesivir 2022-02-23 Completed University of 00:00:00 [place] [facility] Remdesivir 2022-02-23 Completed University of 00:00:00 [place] [facility] Remdesivir 2022-02-23 Completed University of 00:00:00 [place] [facility] Remdesivir 2022-02-23 Completed University of 00:00:00 [place] [facility] Remdesivir 2022-02-23 Completed University of 00:00:00 [place] [facility] Remdesivir 2022-02-23 Completed University of 00:00:00 [place] [facility] Remdesivir 2022-02-23 Completed University of 00:00:00 [place] [facility] Remdesivir 2022-02-23 Completed University of 00:00:00 [place] [facility] Remdesivir 2022-02-23 Completed University of 00:00:00 [place] [facility] Remdesivir 2022-02-23 Completed University of 00:00:00 [place] [facility] Remdesivir 2022-02-23 Completed University of 00:00:00 [place] [facility] Remdesivir 2022-02-23 Completed University of 00:00:00 [place] [facility] Remdesivir 2022-02-23 Completed University of 00:00:00 [place] [facility] Remdesivir 2022-02-23 Completed University of 00:00:00 [place] [facility] Remdesivir 2022-02-23 Completed University of 00:00:00 [place] [facility] Remdesivir 2022-02-22 Completed University of 00:00:00 [place] [facility] Remdesivir 2022-02-22 Completed University of 00:00:00 [place] [facility] Remdesivir 2022-02-22 Completed University of 00:00:00 [place] [facility] Remdesivir 2022-02-22 Completed University of 00:00:00 [place] [facility] Remdesivir 2022-02-22 Completed University of 00:00:00 [place] [facility] Remdesivir 2022-02-22 Completed University of 00:00:00 [facility] Remdesivir 2022-02-22 Completed University of 00:00:00 [facility] Remdesivir 2022-02-22 Completed University of 00:00:00 [facility] Remdesivir 2022-02-22 Completed University of 00:00:00 [facility] Remdesivir 2022-02-22 Completed University of 00:00:00 [facility] Remdesivir 2022-02-22 Completed University of 00:00:00 [facility] Remdesivir 2022-02-22 Completed University of 00:00:00 [facility] Remdesivir 2022-02-22 Completed University of 00:00:00 [facility] Remdesivir 2022-02-22 Completed University of 00:00:00 [facility] Remdesivir 2022-02-22 Completed University of 00:00:00 [facility] Remdesivir 2022-02-21 Completed University of 00:00:00 [facility] Remdesivir 2022-02-21 Completed University of 00:00:00 [facility] Remdesivir 2022-02-21 Completed University of 00:00:00 [facility] Remdesivir 2022-02-21 Completed University of 00:00:00 [facility] Remdesivir 2022-02-21 Completed University of 00:00:00 [facility] Remdesivir 2022-02-21 Completed University of 00:00:00 [facility] Remdesivir 2022-02-21 Completed University of 00:00:00 [facility] Remdesivir 2022-02-21 Completed University of 00:00:00 [facility] Remdesivir 2022-02-21 Completed University of 00:00:00 [facility] Remdesivir 2022-02-21 Completed [facility] 00:00:00 [facility] Remdesivir 2022-02-21 Completed [facility] of 00:00:00 [facility] Remdesivir 2022-02-21 Completed [facility] of 00:00:00 [facility] Remdesivir 2022-02-21 Completed [facility] of 00:00:00 [facility] Remdesivir 2022-02-21 Completed University of 00:00:00 [facility] Remdesivir 2022-02-21 Completed [facility] of 00:00:00 [facility] Vital Signs Vital Name Observation Time Observation Value Comments Source Systolic blood 2022-07-11 142 mm[Hg] Sneha Seybol d - pressure 21:20:00 External Diastolic blood 2022-07-11 78 mm[Hg] Sneha Seybo ld - pressure 21:20:00 External Heart rate 2022-07-11 95 /min Sneha Seybold - 21:20:00 External Body temperature 2022-07-11 36.28 Fanta Sneha Mosleyyb old - :20:00 External Respiratory rate 2022-07-11 14 /min Sneha Mosleyyb old - :20:00 External Body height 2022-07-11 152.4 cm Sneha Mosleyybold - 21:20:00 External Body weight 2022-07-11 93.441 kg Sneha Mosleyybold - 21:20:00 External BMI 2022-07-11 40.23 kg/m2 Sneha Mosleyybold - 21:20:00 External Systolic blood 2022-07-05 120 mm[Hg] Sneha Seybol d - pressure 22:06:00 External Diastolic blood 2022-07-05 78 mm[Hg] Sneha Mosleyybo ld - pressure 22:06:00 External Heart rate 2022-07-05 73 /min Sneha Mosleyybold - 21:43:00 External Body temperature 2022-07-05 36.56 Fanta Sneha Mosleyyb old - :43:00 External Respiratory rate 2022-07-05 14 /min Sneha Mosleyyb old - :43:00 External Body height 2022-07-05 152.4 cm Sneha Mosleyybold - :43:00 External Body weight 2022-07-05 92.987 kg Sneha Mosleyybold - :43:00 External BMI 2022-07-05 40.04 kg/m2 Sneha Mosleyybold - :43:00 External Oxygen saturation 2022-07-05 99 /min Sneha Gilman bold - in Arterial blood 21:43:00 External by Pulse oximetry Systolic blood 2022-06-30 129 mm[Hg] University of pressure 14:59:00 [facility] Diastolic blood 2022-06-30 82 mm[Hg] University o f pressure 14:59:00 [facility] Heart rate 2022-06-30 82 /min University of 14:59:00 [facility] Body height 2022-06-30 152.4 cm University of 14:59:00 [facility] Body weight 2022-06-30 90.719 kg University of 14:59:00 [facility] BMI 2022-06-30 39.06 kg/m2 University of 14:59:00 [facility] Oxygen saturation 2022-06-30 94 /min University of in Arterial blood 14:59:00 [place] [facility] by Pulse oximetry Branch Systolic blood 2022-06-16 148 mm[Hg] University of pressure 17:00:00 [facility] Diastolic blood 2022-06-16 87 mm[Hg] University o f pressure 17:00:00 [facility] Respiratory rate 2022-06-16 15 /min University of 17:00:00 [facility] Oxygen saturation 2022-06-16 88 /min University of in Arterial blood 17:00:00 [place] [facility] by Pulse oximetry Branch Heart rate 2022-06-16 76 /min University of 16:40:00 [facility] Body temperature 2022-06-16 36.5 Fanta University of 16:40:00 [facility] Body height 2022-06-16 152.4 cm University of 13:07:00 [facility] Body weight 2022-06-16 90 kg University of 13:07:00 [facility] BMI 2022-06-16 38.75 kg/m2 University of 13:07:00 [facility] Respiratory rate 2022-06-16 16 /min University of 13:26:00 [facility] Systolic blood 2022-06-16 153 mm[Hg] University of pressure 13:07:00 [facility] Diastolic blood 2022-06-16 100 mm[Hg] University o f pressure 13:07:00 [facility] Heart rate 2022-06-16 70 /min University of 13:07:00 [facility] Body temperature 2022-06-16 37.17 Fanta University of 13:07:00 [facility] Body height 2022-06-16 152.4 cm University of 13:07:00 [facility] Body weight 2022-06-16 90 kg University of 13:07:00 [facility] BMI 2022-06-16 38.75 kg/m2 University of 13:07:00 [facility] Oxygen saturation 2022-06-16 94 /min University of in Arterial blood 13:07:00 [place] [facility] by Pulse oximetry Branch Systolic blood 2022-06-07 142 mm[Hg] Sneha Seybol d - pressure 21:24:00 External Diastolic blood 2022-06-07 93 mm[Hg] Sneha Seybo ld - pressure 21:24:00 External Heart rate 2022-06-07 93 /min Sneha Mosleyybold - 21:24:00 External Body temperature 2022-06-07 35.89 Fanta Sneha Mosleyyb old - 21:24:00 External Respiratory rate 2022-06-07 16 /min Sneha Seyb old - 21:24:00 External Body height 2022-06-07 152.4 cm Sneha Mosleyybold - 21:24:00 External Body weight 2022-06-07 87.091 kg Sneha Mosleyybold - 21:24:00 External BMI 2022-06-07 37.50 kg/m2 Sneha Mosleyybold - 21:24:00 External Systolic blood 2022-05-31 160 mm[Hg] Sneha Seybol d - pressure 20:30:00 External Diastolic blood 2022-05-31 98 mm[Hg] Sneha Mosleyybo ld - pressure 20:30:00 External Heart rate 2022-05-31 119 /min Sneha Mosleyybold - 20:30:00 External Body temperature 2022-05-31 37 Fanta Sneha Mosleyyb old - 20:30:00 External Respiratory rate 2022-05-31 16 /min Sneha Mosleyyb old - 20:30:00 External Body height 2022-05-31 152.4 cm Sneha Mosleyybold - 20:30:00 External Body weight 2022-05-31 87.091 kg Sneha Mosleyybold - 20:30:00 External BMI 2022-05-31 37.50 kg/m2 Sneha Seybold - 20:30:00 External Systolic blood 2022-05-26 164 mm[Hg] Would not stop University of pressure 16:28:00 talking. [facility] Diastolic blood 2022-05-26 92 mm[Hg] Would not stop University of pressure 16:28:00 talking. [facility] Heart rate 2022-05-26 114 /min University 16:28:00 [facility] Body height 2022-05-26 154.9 cm University of 16:28:00 [facility] Body weight 2022-05-26 85.73 kg University of 16:28:00 [facility] BMI 2022-05-26 35.71 kg/m2 University of 16:28:00 [facility] Systolic blood 2022-05-17 169 mm[Hg] University of pressure 13:09:00 [facility] Diastolic blood 2022-05-17 106 mm[Hg] University o f pressure 13:09:00 [facility] Heart rate 2022-05-17 67 /min University of 13:09:00 [facility] Body temperature 2022-05-17 36.72 Fanta University of 13:07:00 [facility] Respiratory rate 2022-05-17 18 /min University of 13:07:00 [facility] Body height 2022-05-17 154.9 cm University of 13:07:00 [facility] Body weight 2022-05-17 85.957 kg University of 13:07:00 [facility] BMI 2022-05-17 35.81 kg/m2 University of 13:07:00 [facility] Oxygen saturation 2022-05-17 90 /min r/a University of in Arterial blood 13:07:00 [facility] by Pulse oximetry Branch Systolic blood 2022-03-31 135 mm[Hg] University of pressure 18:15:00 [facility] Diastolic blood 2022-03-31 89 mm[Hg] University o f pressure 18:15:00 [facility] Heart rate 2022-03-31 82 /min University of 18:15:00 [facility] Body temperature 2022-03-31 36.17 Fanta University of 18:15:00 [facility] Respiratory rate 2022-03-31 18 /min University of 18:15:00 [facility] Body height 2022-03-31 154.9 cm University of 18:15:00 [facility] Oxygen saturation 2022-03-31 90 /min University of in Arterial blood 18:15:00 [place] [facility] by Pulse oximetry Branch Systolic blood 2021-08-18 116 mm[Hg] [facility] e pressure 19:23:00 of Medicine Diastolic blood 2021-08-18 78 mm[Hg] [facility] ge pressure 19:23:00 of Medicine Heart rate 2021-08-18 76 /min [facility] 19:23:00 of Medicine Body temperature 2021-08-18 36.33 Fanta [facility] Jesus ege 19:23:00 of Medicine Respiratory rate 2021-08-18 20 /min [facility] Jesus ege 19:23:00 of Medicine Body height 2021-08-18 152.4 cm [facility] 19:23:00 of Medicine Body weight 2021-08-18 73.483 kg [facility] 19:23:00 of Medicine BMI 2021-08-18 31.64 kg/m2 [facility] 19:23:00 of Medicine Oxygen saturation 2021-08-18 92 /min [facility] in Arterial blood 19:23:00 of Medicin e by Pulse oximetry Heart rate 2021-12-16 70 /min [facility] 17:20:00 [facility] Respiratory rate 2021-12-16 12 /min [facility] 17:20:00 [facility] Oxygen saturation 2021-12-16 91 /min [facility] in Arterial blood 17:20:00 [facility] by Pulse oximetry [facility] Systolic blood 2021-12-16 132 mm[Hg] University of pressure 17:15:00 [facility] Diastolic blood 2021-12-16 99 mm[Hg] [place] o f pressure 17:15:00 [facility] Body temperature 2021-12-16 36.61 Fanta University 17:15:00 [facility] Body weight 2021-11-11 78 kg [facility] 17:06:00 [facility] BMI 2021-11-11 33.58 kg/m2 [facility] 17:06:00 [facility] Body height 2021-09-16 152.4 cm [facility] 14:24:00 [facility] BP Systolic 2018-12-02 122 mm[Hg] Location: RUE; [facility] 14:49:00 Position: Sitting BP Diastolic 2018-12-02 84 mm[Hg] Location: [facility]; [facility] 14:49:00 Position: Sitting Height 2018-12-02 60 [in_us] [facility] 14:49:00 Heart Rate 2018-12-02 91 /min Location: R [facility] 14:49:00 Brachial Artery; Quality: Normal O2 SAT 2018-12-02 91 % Source: [facility] 14:49:00 BP Systolic 2017-08-03 133 mm[Hg] Location: [place]; [facility] 15:50:00 Position: Sitting BP Diastolic 2017-08-03 90 mm[Hg] Location: [facility]; [facility] 15:50:00 Position: Sitting Weight 2017-08-03 196 [lb_av] [facility] 15:50:00 Body Mass Index 2017-08-03 38.28 kg/m2 [facility] Calculated 15:50:00 Temperature 2017-08-03 98.2 [degF] Method: Oral [facility] 15:50:00 Heart Rate 2017-08-03 106 /min Location: L [facility] 15:50:00 Brachial Artery; Quality: Normal Procedures Procedure Date / Time Performing Clinician Source Performed MAGNETIC RESONANCE 2022-06-16 Anesthesiology [facility] IMAGING UNDER ANESTHESIA 22:00:00 Medical Branch MR BRAIN W WO CONTRAST 2022-06-16 Aramis Alvarez [facility] 16:37:00 Medical Branch ASSIGNMENT OF BENEFITS 2022-06-16 Doctor Unassigned, [facility] 13:00:35 Name Medical [place] PATIENT QUESTIONNAIRE 2022-05-26 Doctor Unassigned, No [facility] 05:01:00 Name [facility] MRI BREAST BILATERAL W WO 2021-12-16 [place], Cherrie U [facility] CONTRAST INCL CAD 16:02:19 MD Deal [facility] Center COVID-19 (SARS-COV-2) 2021-12-14 QuemadoCherrie [facility] PCR ASYMPTOMATIC 20:12:00 [facility] US BREAST COMPLETE 2021-09-16 QuemadoCherrie U [facility] BILATERAL 19:51:00 [facility] MAMMO DIGITAL DIAGNOSTIC 2021-09-16 QuemadoCherrie [facility] BILATERAL 18:38:36 [facility] URINE CULTURE 2021-08-21 Sheba Horton [facility] 03:29:00 [facility] URINALYSIS WITH 2021-08-21 Sheba Horton [facility] MICROSCOPIC IF INDICATED 03:29:00 MD Buck [facility] URINALYSIS MICROSCOPIC 2021-08-21 Sheba Horton [facility] 03:29:00 [facility] WOUND CULTURE W/ GRAM 2021-08-21 [facility] STAIN 03:14:00 [facility] er Center COVID-19 (SARS-COV-2) 2021-08-21 Sheba Horton [facility] [place] ASYMPTOMATIC-LT 00:51:00 [facility] COMPLETE BLOOD COUNT W/ 2021-08-21 Sheba Horton [facility] [place] DIFFERENTIAL 00:47:00 [facility] COMPREHENSIVE METABOLIC 2021-08-21 Sheba Horton [facility] [place] PANEL 00:47:00 [facility] Center MAGNESIUM LEVEL 2021-08-21 Sheba Horton [facility] [place] 00:47:00 [facility] Center PHOSPHORUS LEVEL 2021-08-21 Sheba Horton [facility] [place] 00:47:00 [facility] LACTATE DEHYDROGENASE 2021-08-21 Sheba Horton [facility] [place] 00:47:00 [facility] Center AMYLASE LEVEL 2021-08-21 Sheba Horton [facility] [place] 00:47:00 [facility] Center LIPASE LEVEL 2021-08-21 Sheba Horton [facility] [place] 00:47:00 [facility] Center Results CBC 2021-08-21 Sheba Horton [facility] [place] 00:47:00 [facility] Center MANUAL DIFFERENTIAL 2021-08-21 Sheba Horton [facility] [place] 00:47:00 [facility] Center GLUCOSE LEVEL 2021-08-21 Sheba Horton [facility] [place] 00:47:00 [facility] Center BLOOD UREA NITROGEN 2021-08-21 Sheba Horton [facility] [place] 00:47:00 [facility] ELECTROLYTE PANEL 2021-08-21 Sheba Horton [facility] [place] 00:47:00 [facility] SERUM CREATININE 2021-08-21 Sheba Horton [facility] [place] 00:47:00 [facility] .GLOMERULAR FILTRATION 2021-08-21 Sheba Horton [facility] [place] RATE 00:47:00 [facility] CALCIUM LEVEL TOTAL 2021-08-21 Sheba Horton [facility] 00:47:00 [facility] ALBUMIN LEVEL 2021-08-21 Sheba Horton [facility] 00:47:00 [facility] ALKALINE PHOSPHATASE 2021-08-21 Sheba Horton [facility] 00:47:00 [facility] ALANINE AMINOTRANSFERASE 2021-08-21 Sheba Horton [facility] 00:47:00 [facility] ASPARTATE 2021-08-21 Sheba Horton [facility] AMINOTRANSFERASE 00:47:00 [facility] TOTAL PROTEIN 2021-08-21 Sheba Horton [facility] 00:47:00 [facility] FRACTIONATED BILIRUBIN 2021-08-21 [facility]orton [facility] 00:47[facility]00 [facility] URINALYSIS WITH 2021-08-14 Osvaldo Vidal [facility] MICROSCOPIC IF INDICATED 08:18:00 MD Buck [facility] URINE DRUG SCREEN 2021-08-14 Osvaldo Vidal Abel [facility] CONFIRMATION 08:18:00 [facility] URINALYSIS MICROSCOPIC 2021-08-14 Osvaldo Vidal [facility] 08:18:00 [facility] CT ABDOMEN PELVIS W 2021-08-14 Osvaldo Vidal [facility] CONTRAST 05:01:00 [facility] XR CHEST 1 VW 2021-08-14 Osvaldo Vidal [facility] 03:33:36 [facility] XR ABDOMEN 1 VW PORTABLE 2021-08-14 Osvaldo Vidal [facility] 03:33:26 [facility] CT HEAD WO CONTRAST 2021-08-14 Osvaldo Vidal [facility] 03:26:55 [facility] COVID-19 (SARS-COV-2) 2021-08-14 Osvaldo Vidal [facility] ASYMPTOMATIC-LT 02:52:00 [facility] COMPLETE BLOOD COUNT W/ 2021-08-14 Osvaldo Vidal Abel [facility] DIFFERENTIAL 02:52:00 [facility] COMPREHENSIVE METABOLIC 2021-08-14 Hita, Osvaldo Abel [facility] PANEL 02:52:00 [facility] Center MAGNESIUM LEVEL 2021-08-14 Hita, [facility] 02:52:00 [facility] PHOSPHORUS LEVEL 2021-08-14 Hita, [facility] 02:52:00 [facility] PROTHROMBIN TIME 2021-08-14 Hita, [facility] 02:52:00 [facility] APTT 2021-08-14 Hita, [facility] 02:52:00 [facility] Center TYPE AND SCREEN 2021-08-14 Hita, [facility] 02:52:00 [facility] AMMONIA LEVEL 2021-08-14 Hita, [facility] 02:52:00 [facility] AMYLASE LEVEL 2021-08-14 Hita, [facility] 02:52:00 [facility] LIPASE LEVEL 2021-08-14 Hita, [facility] 02:52:00 [facility] URIC ACID 2021-08-14 Hita, [facility] 02:52:00 [facility] THYROID STIMULATING 2021-08-14 Hita, [facility] HORMONE 02:52:00 [facility] HEMOGLOBIN A1C 2021-08-14 Hita, [facility] 02:52:00 [facility] CONFIRM ABORH TYPE 2021-08-14 Hita, [facility] 02:52:00 [facility] Center ABORH 2021-08-14 Hita, [facility] 02:52:00 [facility] ANTIBODY SCREEN 2021-08-14 Hita, [facility] 02:52:00 [facility] Results CBC 2021-08-14 Hita, [facility] 02:52:00 [facility] MANUAL DIFFERENTIAL 2021-08-14 Hita, [facility] 02:52:00 [facility] GLUCOSE LEVEL 2021-08-14 [facility], [facility] 02:52:00 [facility] BLOOD UREA NITROGEN 2021-08-14 [facility], [facility] 02:52:00 [facility] ELECTROLYTE PANEL 2021-08-14 [facility], [facility] 02:52:00 [facility] SERUM CREATININE 2021-08-14 [facility], [facility] 02:52:00 [facility] .GLOMERULAR FILTRATION 2021-08-14 [facility], [facility] RATE 02:52:00 [facility] CALCIUM LEVEL TOTAL 2021-08-14 [facility], [facility] 02:52:00 [facility] ALBUMIN LEVEL 2021-08-14 [facility], [facility] 02:52:00 [facility] ALKALINE PHOSPHATASE 2021-08-14 [facility], [facility] 02:52:00 [facility] ALANINE AMINOTRANSFERASE 2021-08-14 [facility], [facility] 02:52:00 [facility] ASPARTATE 2021-08-14 [facility], [facility] AMINOTRANSFERASE 02:52:00 [facility] TOTAL PROTEIN 2021-08-14 [facility], [facility] 02:52:00 [facility] FRACTIONATED BILIRUBIN 2021-08-14 [facility] 02:52:00 [facility] CLOT EXPIRATION DATE 2021-08-14 [facility], [facility] 02:52:00 [facility] TMP INTERPRETATION 2021-08-14 [facility], [facility] ANTIBODY SCREEN NEGATIVE 02:52:00 [facility] E[facility], 12-LEAD (PORTABLE) 2021-08-14 Osvaldo Vidal Abel [facility] 00:00:00 [facility] MA Digital Mammo DX [place] 2019-06-25 [facility] [id number] 00:00:[place] [id number] 2019-06-25 [facility] [place] Chest [place] [id number] 00:00:00 CT Neck soft tissue wo 2018-12-03 [facility] contrast [id number] 00:00:00 [QLH] CMP W/EGFR 2018-12-02 [facility] 00:00:00 [QLH] CBC (INCLUDES 2018-12-02 [facility] DIFF/PLT) 00:00:00 [QLH] LIPID PANEL 2018-12-02 [facility] 00:00:00 [QLH] THYROID PANEL 2018-12-02 [facility] 00:00:00 [QLH] URINALYSIS, 2018-12-02 [facility] COMPLETE 00:00:00 US Unlisted Ultrasound 2018-12-02 [facility] Procedure [id number] 00:00:00 [U] XRAY CHEST- AP AND 2018-12-02 [facility] LAT. AND APICAL LORDOTIC 00:00:00 VWS [id number] US Abdomen complete [id number] 2017-08-03 [facility] 00:00:00 XRAY Chest 2 views [id number] 2017-08-03 [facility] 00:00:00 XRAY Ribs unilateral 2017-08-[place] [id number] 00:00:00 XRAY Wrist AP and lateral 2017-08-03 [facility] [id number] 00:00:00 Plan of Care Planned Activity Planned Date Details Comments Source Future Scheduled 2022-06-30 COVID-19 Vaccination Uni versity of Test 08:23:31 (#1) [code = COVID-19 [facility] Vaccination (#1)] Cancer [address] Future Scheduled 2022-06-30 COVID-19 Vaccination Uni versity of Test 08:23:31 (#1) [code = COVID-19 [facility] Vaccination (#1)] Cancer [address] Future Scheduled 2021-08-19 Screening for malignant [facility] Test 10:07:54 neoplasm of colon Medicine (procedure) [code = 478700286] Future Scheduled 2021-08-19 Screening for malignant [facility] Test 10:07:54 neoplasm of breast Medicine (procedure) [code = 846299190] Future Scheduled 2021-08-19 Pneumococcal Combined (1 [facility] Test 10:07:54 of 2 - PPSV23) [code = Medic ine Pneumococcal Combined (1 of 2 - PPSV23)] Future Scheduled 2021-08-19 COVID-19 Vaccine (1) [facility] Test 10:07:54 [code = COVID-19 Vaccine Med icine (1)] Future Scheduled 2021-08-19 TETANUS SHOT (ADULT) [facility] Test 10:07:54 [code = TETANUS SHOT Medicin e (ADULT)] Future Scheduled 2021-08-19 BMI FOLLOW UP PLAN [code [facility] Test 10:07:54 = BMI FOLLOW UP PLAN] Medici ne Future Scheduled 2021-08-19 Hepatitis C screening Ba [facility] Test 10:07:54 (procedure) [code = Medicine 944399523] Future Scheduled 2021-08-19 Human immunodeficiency B [facility] 10:07:54 virus screening Medicine (procedure) [code = 924676613] Future Scheduled 2021-08-19 Screening for malignant [facility] 10:07:54 neoplasm of cervix Medicine (procedure) [code = 878119399] Future Scheduled 2021-08-19 ZOSTER VACCINE (1 of 2) [facility] 10:07:54 [code = ZOSTER VACCINE Medic ine (1 of 2)] Future Scheduled 2021-08-19 FLU VACCINE > 6 MONTHS B [facility] Test 10:07:54 [code = FLU VACCINE > 6 Medi cine MONTHS] Encounters Start End Encounter Admission Attending Care Care Encounter Source Date/Time Date/Time Type Type Clinicians Facility Department ID 2021-12-09 Outpatient Eri MENDOZA [facility] [id number] Univers 13:07:26 KIMBER shen [facility] 2021-12-07 Outpatient [facility] [id number] [facility] Outpatient SIRISHA [facility] [id number] [place] 16:50:53 Critical access hospital 2021-05-24 Outpatient SIRISHA [facility] [id number] [place] 13:44:48 Critical access hospital 2021-05-17 [facility] [facility] [id number] [place] [facility]-06 2022-10-06 Outpatient SNEHA FERRELL [id number] Sneha 16:15:00 16:15:00 JOHN Seybol d 2022-08-25 2022-08-25 Outpatient JENNY, SNEHA VELIZ [id number] Sneha 10:00:00 10:00:00 ANATOLY Seybol d 2022-08-03 2022-08-03 Outpatient AKHIL MCBRIDE SNEHA [id number] Sneha 09:30:00 09:30:00 Seybol d 2022-08-03 2022-08-03 Outpatient SNEHA SNEHA [id number] Sneha 09:30:00 09:30:00 Seybol d 2022-07-28 2022-07-28 Outpatient LAB67 SNEHA VELIZ [id number] Sneha 17:00:00 17:00:00 Seybol d 2022-07-28 2022-07-28 Outpatient SNEHA VELIZ [id number] Sneha 16:15:00 16:15:00 Seybol d 2022-07-28 2022-07-28 Outpatient JENNYSNEHA DE LEÓN [id number] Sneha 00:00:00 00:00:00 ANATOLY Seybol d 2022-07-28 2022-07-28 Outpatient PREZAS, SNEHA VELIZ [id number] Sneha 00:00:00 00:00:00 JOHN Seybol d 2022-07-27 2022-07-27 Outpatient PLAB SNEHA VELIZ [id number] Sneha 15:00:00 15:00:00 Seybol d 2022-07-27 2022-07-27 Outpatient SNEHA VELIZ [id number] Sneha 13:15:00 13:15:00 Seybol d 2022-07-21 2022-07-21 Outpatient PLAB SNEHA VELIZ [id number] Sneha 14:20:00 14:20:00 Seybol d 2022-07-21 2022-07-21 Outpatient PLAB SNEHA VELIZ [id number] Sneha 14:20:00 14:20:00 Seybol d 2022-07-21 2022-07-21 Outpatient SNEHA VELIZ [id number] Sneha 13:00:00 13:00:00 Seybol d 2022-07-20 2022-07-20 Outpatient JENNY, SNEHA VELIZ [id number] Sneha 00:00:00 00:00:00 ANATOLY Seybol d 2022-07-19 2022-07-19 Outpatient PREZAS, SNEHA VELIZ [id number] Sneha 00:00:00 00:00:00 JOHN Seybol d 2022-07-18 2022-07-18 Outpatient PREZAS, SNEHA VELIZ [id number] Sneha 00:00:00 00:00:00 JOHN Seybol d 2022-07-14 2022-07-14 Outpatient JENNY, SNEHA VELIZ [id number] Sneha 15:00:00 15:00:00 ANATOLY Seybol d 2022-07-14 2022-07-14 Outpatient PREZAS, SNEHA VELIZ [id number] Sneha 00:00:00 00:00:00 JOHN Seybol d 2022-07-14 2022-07-14 Outpatient PREZAS, SNEHA VELIZ [id number] Sneha 00:00:00 00:00:00 JOHN Seybol d 2022-07-13 2022-07-13 Outpatient JENNY, SNEHA VELIZ [id number] Sneha 16:00:00 16:00:00 ANATOLY Seybol d 2022-07-13 2022-07-13 Outpatient JENNY, SNEHA VELIZ [id number] Sneha 16:00:00 16:00:00 ANATOLY Seybol d 2022-07-12 2022-07-12 Outpatient PREZAS, SNEHA VELIZ [id number] Sneha 00:00:00 00:00:00 JOHN Seybol d 2022-07-12 2022-07-12 Outpatient PREZAS, SNEHA VELIZ [id number] Sneha 00:00:00 00:00:00 JOHN Seybol d 2022-07-11 2022-07-11 Outpatient LAB90 SNEHA VELIZ [id number] Sneha 17:00:00 17:00:00 Seybol d 2022-07-11 2022-07-11 Outpatient PREZAS, SNEHA VELIZ [id number] Sneha 16:15:00 16:15:00 JOHN Seybol d 2022-07-11 2022-07-11 Outpatient PREPOPPY SNEHA VELIZ [id number] Sneha 00:00:00 00:00:00 JOHN Seybol d 2022-07-10 2022-07-10 Outpatient TRINAPOPPY SNEHA VELIZ [id number] Sneha 00:00:00 00:00:00 JOHN Seybol d 2022-07-05 2022-07-05 Outpatient LAB90 SNEHA VELIZ [id number] Sneha 16:45:00 16:45:00 Seybol d 2022-07-05 2022-07-05 Outpatient PRERICHIEAlberto SNEHA VELIZ [id number] Sneha 15:45:00 15:45:00 JOHN Seybol d 2022-06-30 2022-06-30 Outpatient ARAMIS ABDI [facility] [id number] Univers 09:00:00 09:38:14 ARAMIS ALVAREZ [facility] 2022-06-30 2022-06-30 Office Christa [facility] 1.2.840.114 [id number] Univers 09:00:00 09:38:14 Visit [facility] 350.1.13.10 [facility] 4.2.7.2.686 Rajeev as SHELLI?BLEA [id number] [address] [facility] 2022-06-26 2022-06-26 Outpatient TRINARICHIEAlberto SNEHA VELIZ [id number] Sneha 00:00:00 00:00:00 JOHN Seybol d 2022-06-20 2022-06-20 Outpatient SNEHA FERRELL [id number] Sneha 00:00:00 00:00:00 JOHN Seybol d 2022-06-19 2022-06-19 Outpatient Eri TAMAYO [facility] [id number] Univers 15:30:00 15:30:00 PARKER [facility] 2022-06-16 2022-06-16 Outpatient ARAMIS ABDI [facility] ANS [id number] Univers 07:54:26 23:59:00 ARAMIS ALVAREZ [facility] 2022-06-16 2022-06-16 [facility] NICO 1.2. 840.114 [id number] Univers 07:54:26 23:59:00 Encounter Kimber Mendoza 350.1 .13.10 ity of [address]686 Rajeev as [id number] [facility] [address] 2022-06-16 2022-06-16 Hospital NICO Mendoza 1.2.840.114 [id number] Univers 07:01:00 11:40:00 Encounter Kimber VILLAVICENCIO 350.1.13.10 ity of [place] [address].2.7.2.686 Rajeev as [id number] [facility] [address] 2022-06-16 2022-06-16 Surgery Anesthesiol NICO 1.2.840.114 [id number] Univers 08:00:00 09:30:00 ogy SAUD 350.1.13.10 it y of [place] [address].2.7.2.686 Rajeev as [id number] [facility] [address] 2022-06-16 2022-06-16 Orders Doctor AGUEDA 1.2.840.114 [id number] Univers 00:00:00 00:00:00 Only Unassigned, SAUD 350.1.13.10 ity of [place] [facility] 2.7.2.686 Rajeev as [id number] [facility] [address] 2022-06-15 2022-06-15 Outpatient PRESNEHA MCWILLIAMS [id number] Sneha 00:00:00 00:00:00 JOHN Seybol d 2022-06-13 2022-06-13 Outpatient PREZASNEHA Dominguez [id number] Sneha 00:00:00 00:00:00 JOHN Seybol d 2022-06-07 2022-06-07 Outpatient SNEHA FERRELL [id number] Sneha 15:30:00 15:30:00 JOHN Seybol d 2022-06-02 2022-06-02 Outpatient PRESNEHA MCWILLIAMS [id number] Sneha 00:00:00 00:00:00 JOHN Seybol d 2022-06-02 2022-06-02 Outpatient SNEHA FERRELL [id number] Sneha 00:00:00 00:00:00 JOHN Seybol d 2022-05-31 2022-05-31 Outpatient LAB90 SNEHA VELIZ [id number] Sneha 16:50:00 16:50:00 Seybol d 2022-05-31 2022-05-31 Outpatient PREPOPPY SNEHA VELIZ [id number] Sneha 15:30:00 15:30:00 JOHN Seybol reg 2022-05-26 2022-05-26 Outpatient R BELKIS [facility] [id number] Univers 11:30:00 12:19:14 [facility] 2022-05-26 2022-05-26 [facility] 1.2.840.114 [id number] Univers 11:30:00 12:19:14 Visit [facility] 350.1.13.10 it y of [place] 4.2.7.2.686 Rajeev as SHELLI?BLEA [id number] [address] [facility] 2022-05-23 2022-05-23 Telephone Christa [facility] 1.2.840.114 [id number] Univers 00:00:00 00:00:00 [facility] 350.1.13.10 ity of [place] 4.2.7.2.686 Rajeev as SHELLI?BLEA [id number] [address] 2022-05-23 2022-05-23 Telephone Abdirahman [facility] 1.2.950.349 [id number] Univers 00:00:00 00:00:00 Palliative PRIMARY 350.1.13.10 [place] of [place] [id number] [address] 2022-05-17 2022-05-17 Outpatient R AIME [facility] [id number] Univers 08:00:00 08:49:23 MARK ANTHONY forbes [facility] 2022-05-17 2022-05-17 Office Pcp, Palliative Care [facility] 1.2.8 40.114 [id number] Univers 08:00:00 08:49:23 Visit Mark Anthony Salomon PRIMARY 350.1.13.10 [place] [id number] [facility] [address] 2022-05-07 2022-05-07 Kaila Warner [facility] 1.2.840.114 [id number] Univers 00:00:00 00:00:00 Aimecristy ALEXANDER 350.1.13.10 ity of [facility] 4.[place] [id number] [facility] NAL 044 [facility] 2022-04-04 2022-04-04 Telephone [facility] 1.2.840.114 [id number] Univers 00:00:00 00:00:00 Kimber ALEXANDER 350.1.13.10 ity of [facility] 4.[place].2.[place] [id number] [facility] 231 [facility] 2022-03-31 2022-03-31 [facility] [id number] Univers 13:00:00 14:12:[address] [facility] [place] [place] 2022-03-31 2022-03-31 Office [facility] 1.2.840.114 [id number] Univers 13:00:00 14:12:14 Visit Kimber ALEXANDER 350.1.13.10 it[place] of [place] [id number] [address] 2022-03-31 2022-03-31 [facility] [id number] Univers 13:00:00 13:00:00 KIMBER [facility] 2022-03-31 2022-03-31 Outpatient [facility] [id number] Univers 13:00:00 13:00:00 [facility]22-[facility]-29 2022-03-29 Telephone [facility] 1.2.840.114 [id number] Univers 00:00:00 00:00:00 Kimber ALEXANDER 350.1.13.10 ity of [facility] 4.2.7.2.[place] [id number] [place] dical NAL 231 [facility] 2022-03-21 2022-03-21 Telephone [facility] 1.2.463.134 [id number] Univers 00:00:00 00:00:00 Palliative MULTISPEC 350.1.13.10 it[place] of Care IAL[place] C[place] [id number] [facility] AND JASMIN [address] [facility] 2022-03-20 2022-03-20 Telephone [facility] 1.2.840.114 [id number] Univers 00:00:00 00:00:00 Kimber ALEXANDER 350.1.13.10 it[place] of [place] [id number] [facility] 231 [facility] 2022-03-14 2022-03-14 Patient [facility] 1.2.840.114 [id number] Univers 00:00:00 00:00:00 Secure Msg Kimber ALEXANDER 350.1.13.10 [place] of [place] [id number] [facility] 044 [facility] 2022-03-10 2022-03-10 Outpatient R REJI [facility] [id number] Univers 16:01:51 23:59:00 KIMBER ity of [facility] 2022-03-10 2022-03-10 [facility] 1.2.840.114 [id number] Univers 15:30:00 23:59:00 Encounter Kimber ALEXANDER 350.1.13.10 ity of [facility] 4.2.7.2.[place] [id number] [facility] [address] 2022-03-10 2022-03-10 Curtain Cutter Gerald, Adc Lab Main [facility] 1.2.8 40.114 [id number] Univers 16:15:00 16:30:00 Visit Kimber Mendoza 350.1. 13.10 it[place] of [place] 4.2.7.[place] [id number] [place] dical NAL 353 [facility] 2022-03-10 2022-03-10 Office [facility] 1.2.840.114 [id number] Univers 13:00:00 14:27:33 Visit Kimber ALEXANDER 350.1.13.10 ity of [facility] 4.2.7.2.[place] [id number] [place] dical NAL 231 [facility] 2022-03-10 2022-03-10 [facility] [id number] Univers 13:00:00 14:27:33 KIMBER forbes of [facility] 2022-03-10 2022-03-10 Orders Doctor AGUEDA 1.2.840.114 [id number] Univers 00:00:00 00:00:00 Only Unassigned, SAUD 350.1.13.10 ity of [place] [facility] 4.2.7.2.686 Rajeev as [id number] [address] 2022-03-09 2022-03-09 Telephone [facility] 1.2.840.114 [id number] Univers 00:00:00 00:00:00 Kimber ALEXANDER 350.1.13.10 ity of [facility] 4.2.7.2.[place] [id number] [facility] 044 [facility] 2022-03-02 2022-03-02 Orders Doctor AGUEDA 1.2.840.114 [id number] Univers 00:00:00 00:00:00 Only Unassigned, SAUD 350.1.13.10 ity of [place] [facility] 4.2.7.2.686 Rajeev as [id number] [address] 2022-03-01 2022-03-01 Patient [facility] 1.2.840.114 [id number] Univers 00:00:00 00:00:00 Outreach Felicia ALEXANDER 350.1.13.10 ity of [place] [id number] [place] dical NAL [address] [facility] 2022-03-01 2022-03-01 [facility] 1.2.840.114 [id number] Univers 00:00:00 00:00:00 Kimber ALEXANDER 350.1.13.10 [place] of [place] [id number] [place] dical NAL 044 [facility] 2022-02-28 2022-02-28 Transition MISHA Vega 1.2.840.114 [id number] Univers 00:00:00 00:00:00 of Care Jojo ALFONSOY 350.1.13.10 i ty of [place].2.7.2.686 [place] [id number] [facility] [address] 2022-02-20 2022-02-26 Inpatient X ZACHARY [facility] [id number] Univers 20:31:00 15:22:00 NENITA forbes [facility] 2022-02-20 2022-02-26 [facility] Ellimin Sherrie Duarte [facility] 1 .2.840.114 [id number] Univers 20:31:00 15:22:00 Encounter Nenita Harry 350.1.13.10 ity of [place] 4.2.7.2.686 [facility] [id number] [facility] [address] 2022-02-21 2022-02-21 Outpatient R REJI [facility] [id number] Univers 16:20:00 16:20:00 KIMBER forbes [facility] 2022-02-21 2022-02-21 Outpatient R CRIS WARNER [facility] [id number] Univers 16:00:00 16:00:00 CRIS WARNER [facility] 2022-02-17 2022-02-17 Telephone [facility] 1.2.840.114 9 [id number] Univers 00:00:00 00:00:00 Kimber ALEXANDER 350.1.13.10 [place] [id number] [address] 2022-02-16 2022-02-16 [facility] 1.2.840.114 [id number] [facility] 16:20:00 17:00:00 ne Visit Kimber BERNARDOTON 350.1.13.10 ity of [facility] 4.2.[place] [id number] [address] 2022-02-16 2022-02-16 Outpatient [facility] [id number] [facility] 16:20:00 16:20:00 KIMBER forbes [facility] 2022-02-15 2022-02-15 Telephone [facility] 1.2.840.114 [id number] Univers 00:00:00 00:00:00 Kimber Adrianne [place] 350.1.13.10 ity of [place] [id number] [address] 2022-02-10 2022-02-10 [facility] 1.2.840.114 [id number] Univers 00:00:00 00:00:00 Cris BERNARDOTON 350.1.13.10 ity of [place] 4[place].2.[place] [id number] [address] 2022-01-24 2022-01-24 Refill [facility] 1.2.840.114 [id number] Univers 00:00:00 00:00:00 Kimber A [place] 350.1.13.10 ity of [facility] 4.2.7.2.[place] [id number] [address] 2022-01-06 2022-01-09 Outpatient R [facility] [id number] [facility] 16:20:00 08:51:46 KIMBER forbes [facility] 2022-01-06 2022-01-09 [facility] 1.2.840.114 [id number] Univers 16:20:00 08:51:46 ne Visit Kimber ALEXANDER 350.1.13.10 ity of [facility] 4.2.7.2.[place] [id number] [address] 2022-01-06 2022-01-06 Outpatient R REJI [facility] [id number] Univers 16:20:00 16:20:00 KIMBER ity [facility] 2021-12-30 2021-12-30 Telephone [facility] 1.2.840.114 [id number] Univers 00:00:00 00:00:00 [employer] [facility] 350.1.13.10 it y of [place] 4.2.7.2.686 [facility] [id number] [facility] [address] 2021-12-28 2021-12-28 [facility] 1.2.840.114 [id number] Univers 00:00:00 00:00:00 Kimber ALEXANDER 350.1.13.10 ity of [facility] 4.2.[place].2.[place] [id number] [address] 2021-12-23 2021-12-23 Emergency X [facility] ERT [id number] Univers 19:08:00 23:45:00 VASYEDSHRUTI ity [facility] 2021-12-23 2021-12-23 Emergency [facility] 1.2.432.126 [id number] Univers 19:08:00 23:45:00 Wiraoul Alberto [facility] 350.1.13.10 ity of [facility] 4.2.7.2.686 [facility] [id number] [facility] [address] 2021-12-23 2021-12-23 Emergency X [facility] ERT [id number] Univers 19:08:00 23:45:00 KIMBERLYN ity [facility] 2021-12-23 2021-12-23 Telephone Mendoza, [facility] 1.2.840.114 9 [id number] Univers 00:00:00 00:00:00 Kimber ALEXANDER 350.1.13.10 ity of [facility] 4.2.7.2.[place] [id number] [place] dical [facility] 044 [facility] 2021-12-22 2021-12-22 [facility] [id number] Univers 16:00:00 17:20:39 ELLEN ity [facility] 2021-12-22 2021-12-22 Office [facility] 1.2.840.114 [id number] Univers 16:00:00 17:20:39 Visit Ellen CATHERINE 350.1.13.10 i ty of [place] [id number] [address] 2021-12-22 2021-12-22 [facility] [id number] Univers 16:00:00 17:20:39 ELLEN ity [facility] 2021-12-22 2021-12-22 [facility] [id number] Univers 16:00:00 16:00:00 ELLEN ity [facility] 2021-12-22 2021-12-22 Nurse AGUEDA [place] 1.2.960.172 [id number] Univers 00:00:00 00:00:00 Triage Phani SAUD 350.1.13.10 it y of [facility] 4.2.7.2.686 Rajeev as [id number] [address] 2021-12-22 2021-12-22 Telephone [facility] 1.2.840.114 9 [id number] Univers 00:00:00 00:00:00 Kimber ALEXANDER 350.1.13.10 it[place] of [place].2.[place] [id number] Ky dical [facility] 231 [facility] 2021-12-22 2021-12-22 Telephone [facility] 1.2.840.114 9 [id number] Univers 00:00:00 00:00:00 Kimber ALEXANDER 350.1.13.10 ity of [place] 4.2.7.2.686 [place] [id number] [place] dical NAL [address] BUILDING 2021-12-16 2021-12-16 [facility] Cherrie Johnson 1.2.840.1 [id number] Univers 06:16:21 23:59:00 Encounter Natalie Mcdonald 39940.1.1 ity of [place].2.7 [place] .3.248[place] MD Jackson8 [facility] 2021-12-16 2021-12-16 [facility] 1.2.840.1 [id number] Univers 06:16:21 23:59:00 Encounter Natalie Mcdonald 42209.1.1 ity of [place].412.2.7 [place] .3.747762 MD Jackson8 [facility] 2021-12-16 2021-12-16 Anesthesia Natalie Mcdonald 1.2.840.1 1010 [id number] Univers 09:42:00 11:13:00 Event Ksasidy Wheeler 38026.1.1 ity of 3.412.2.7 [place] .3.742847 MD Jackson8 [facility] 2021-12-16 2021-12-16 Anesthesia Natalie Mcdonald 1.2.840.1 [id number] [id number] [id number] Univers 09:42:00 11:13:00 Event Kassidy Wheeler 12716.1.1 ity of 3.412.2.7 [place] .3.181689 MD Jackson8 [facility] [place] 2021-12-16 2021-12-16 Telephone Christa MOGILA 1.2.840.114 [id number] Univers 00:00:00 00:00:00 [facility] 350.1.13.10 ity of [place] 4.2.7.2.686 Rajeev as SHELLI?BLEA [phone] [place] dical KNEY [address] MEDICAL OFFICE BUILDING 2021-12-16 2021-12-16 Telephone Reji MOGILA 1.2.840.114 [id number] Univers 00:00:00 00:00:00 Kimber ALEXANDER 350.1.13.10 ity of [place] 4.2.7.2.686 [place] [id number] [place] dical [address] 2021-12-16 2021-12-16 Travel 1.2.840.1 1.2.050.970 9804 [id number] Univers 00:00:00 00:00:00 04333.1.1 350.1.13.41 ity of 3.412.2.7 2[place].3.698 [place] .3.146931 084.8 MD Carrera [facility] 2021-12-16 2021-12-16 Travel 1.2.840.1 1.2.525.554 0715 [id number] Univers 00:00:00 00:00:00 22397.1.1 350.1.13.41 ity of 3.412.2.7 2.[place].7.3.698 [place] .3.628936 084.8 MD Carrera [facility] 2021-12-15 2021-12-15 Anesthesia [place], 1.2.840.1 [id number] Univers 23:59:59 23:59:59 Event Yolis C 08735.1.1 it y of 3.412.2.7 [place] .3.991294 MD Carrera [facility] 2021-12-15 2021-12-15 Anesthesia [place], 1.2.840.1 [id number] Univers 23:59:59 23:59:59 Event Yolis C 36574.1.1 it y of 3.412.2.7 [place] .3.433478 MD Carrera [facility] 2021-12-15 2021-12-15 POEM 1.2.840.1 [id number] Univers 13:30:00 14:00:00 Appointmen 91492.1.1 i ty of ts 3.412.2.7 [place] .3.141829 MD Carrera [facility] 2021-12-15 2021-12-15 POEM 1.2.840.1 [id number] Univers 13:30:00 14:00:00 Appointmen 73353.1.1 i ty of ts 3.412.2.7 [place] .3.521719 MD Carrera [facility] 2021-12-15 2021-12-15 Nurse Cueva, 1.2.840.1 [id number] Univers 00:00:00 00:00:00 Triage Felicia A 28871.1.1 ity of 3.412.2.7 [place] .3.089226 MD Jackson8 [facility] 2021-12-15 2021-12-15 Nurse Cueva, 1.2.840.1 [id number] Univers 00:00:00 00:00:00 Triage Felicia A 33290.1.1 ity of 3.412.2.7 [place] .3.547921 MD Carrera [facility] 2021-12-14 2021-12-14 Clinical Jenny Aiken 1.2.840.1 [id number] Univers 13:30:00 15:23:57 Support Briana 17721.1.1 it y of 3.412.2.7 [place] .3.124995 MD Carrera [facility] 2021-12-14 2021-12-14 Clinical Jenny Aiken 1.2.840.1 [id number] Univers 13:30:00 15:23:57 Support Briana 14292.1.1 it y of 3.412.2.7 [place] .3.123064 MD Jackson8 [facility] 2021-12-14 2021-12-14 Travel 1.2.840.1 1.2.167.944 4705 [id number] Univers 00:00:00 00:00:00 80521.1.1 350.1.13.41 ity of 3.412.2.7 2.[place].7.3.698 [place] .3.138252 084.8 MD Carrera [facility] 2021-12-14 2021-12-14 Travel 1.2.840.1 1.2.221.513 [id number] Univers 00:00:00 00:00:00 69957.1.1 350.1.13.41 ity of 3.412.2.[place]3.698 [place] .3.969336 084.8 .8 [facility] 2021-12-13 2021-12-13 Outpatient R [facility] [id number] Univers 15:45:00 16:30:54 [facility]-12-13 2021-12-13 Office [facility] 1.2.186.155 [id number] Univers 15:45:00 16:30:54 Visit Libby ALEXANDER 350.1.13.10 i ty [place] [id number] [place] N[place] 419 [facility] 2021-12-13 2021-12-13 Outpatient R [facility] [id number] Univers 15:45:00 15:45:00 LIBBY [facility] 2021-12-13 2021-12-13 [facility] 1.2.840.114 [id number] Univers 00:00:00 00:00:00 Cris ALEXANDER 350.1.13.10 ity of [facility] 4[place] [phone] Me dical NAL 044 [facility] 2021-12-13 2021-12-13 Travel 1.2.840.1 1.2.861.813 [id number] Univers 00:00:00 00:00:00 99026.1.1 350.1.13.41 ity of 3.412.2.[place] 2.[place].3.698 [place] .3.281710 084.8 .8 [facility] 2021-12-13 2021-12-13 Travel 1.2.840.1 1.2.438.750 [id number] [id number] Univers 00:00:00 00:00:00 14079.1.1 350.1.13.41 ity of 3.412.2.7 2.2.7.3.698 Te sanjay .3.948664 084.8 .8 [facility] 2021-12-08 2021-12-09 [id number] Univers 16:00:00 [facility]:09:[facility] 2021-12-09 [facility] 1.2.840.114 [id number] Univers 16:00:00 16:09:40 ne Visit Kimber ALEXANDER 350.1.13.10 ity of [facility] 4[place] [phone] [address] 2021-12-08 2021-12-08 [facility] [id number] Univers 16:00:00 16:00:00 [facility] 2021-12-08 2021-12-08 [facility] [id number] [id number] Univers 16:00:00 16:00:00 [facility] 2021-12-07 2021-12-07 [facility] 1.2.840.114 [id number] Univers 00:00:00 00:00:00 Outreach Felicia ALEXANDER 350.1.13.10 ity of [facility] 4[place] [phone] [place] [address] 2021-12-02 2021-12-02 [facility] 1.2.840.114 [id number] Univers 00:00:00 00:00:00 Management Kimber ALEXANDER 350.1.13.10 it[place] [phone] [place] dic[address] 2021-12-01 2021-12-01 Telephone Timmy [facility] 1.2.840.114 [id number] Univers 00:00:00 00:00:00 Cris ALEXANDER 350.1.13.10 ity of [place] 4.2.7.2.686 [place] [phone] [place] NAL 044 [facility] 2021-11-29 2021-11-29 Telephone Theo, 1.2.840.1 [id number] Univers 00:00:00 00:00:00 Litty 30150.1.1 ity of 3.412.2.7 [place] .3.242485 MD Jackson8 [facility] 2021-11-29 2021-11-29 Telephone Theo, 1.2.840.1 [id number] Univers 00:00:00 00:00:00 Litty 56902.1.1 ity of 3.412.2.7 [place] .3.735826 MD Jackson8 [facility] 2021-11-28 2021-11-28 Anesthesia Laron, 1.2.840.1 [id number] Univers 23:59:59 23:59:59 Event Norris A 88769.1.1 ity of 3.412.2.7 [place] .3.100779 MD Jackson8 [facility] 2021-11-28 2021-11-28 Anesthesia Laron, 1.2.840.1 [id number] Univers 23:59:59 23:59:59 Event Norris A 87360.1.1 ity of 3.412.2.7 [place] .3.828889 MD Carrera [facility] 2021-11-28 2021-11-28 POEM 1.2.840.1 [id number] Univers 14:00:00 14:30:00 Appointmen 70726.1.1 i ty of ts 3.412.2.7 [place] .3.785218 MD Carrera [facility] 2021-11-28 2021-11-28 POEM 1.2.840.1 [id number] Univers 14:00:00 14:30:00 Appointmen 82154.1.1 i ty of 3.412.2.7 [place] .3.268058 MD Jackson8 [facility] 2021-11-28 2021-11-28 Patient Reji [facility] 1.2.840.114 [id number] Univers 00:00:00 00:00:00 Secure Msg Kimber A [place] 350.1.13.10 ity of [facility] [place].2.[place] [phone] Ky dical NAL 044 [facility] 2021-11-28 2021-11-28 Patient Reji [facility] 1.2.840.114 [id number] Univers 00:00:00 00:00:00 Secure Msg Kimber Silver [place] 350.1.13.10 ity of [facility] 4.2.7.2.[place] [phone] Ky dicsc NAL 044 [facility] 2021-11-28 2021-11-28 Orders Doctor AGUEDA 1.2.840.114 [id number] Univers 00:00:00 00:00:00 Only Unassigned, SAUD 350.1.13.10 ity of [place] [facility] 4.2.7.2.686 Rajeev as [id number] [facility] [address] 2021-11-25 2021-11-25 Office Marjorie [facility] 1.2.840.114 [id number] Univers 10:00:00 10:30:00 Visit Curtis [place] 350.1.13.10 ity of [place] [phone] [facility] [address] [facility] 2021-11-25 2021-11-25 Outpatient R MARJORIE [facility] [id number] Univers 10:00:00 10:00:00 CURTIS forbes of [facility] 2021-11-23 2021-11-23 Tele[facility] 1.2.840.114 [id number] Univers 00:00:00 00:00:00 Kimber Silver [place] 350.1.13.10 ity of [facility] 4.2.7.2.[place] [phone] Me dical NAL 231 [facility] 2021-11-21 2021-11-21 Outpatient R NELY MOORE [facility] [id number] Univers 07:01:30 23:59:00 ity of [facility] 2021-11-21 2021-11-21 [facility] Nely Moore [facility] 1.2.840.114 [id number] Univers 07:01:30 23:59:00 Encounter [facility] 350.1. 13.10 ity of [facility] 4.2.7.2.[place] [id number] [facility] [address] [place] 2021-11-21 2021-11-21 Outpatient R DARLENE MOOREE [facility] [id number] Univers 07:01:30 23:59:00 ity of [facility] 2021-11-21 2021-11-21 Outpatient R TERESA [facility] [id number] Univers 00:00:00 00:00:00 ity of [facility] 2021-11-21 2021-11-21 [facility] 1.2.840.114 [id number] Univers 00:00:00 00:00:00 Seema ALEXANDER 350.1.13.10 ity of [facility] 4.2.7.2.[place] [id number] Ky dical NAL 188 [facility] 2021-11-21 2021-11-21 Telephone Reji [facility] 1.2.840.114 [id number] Univers 00:00:00 00:00:00 Kimber ALEXANDER 350.1.13.10 ity of [place] 4.2.7.2.[place] [phone] Ky dical NAL 044 [facility] 2021-11-21 2021-11-21 RefSherrie Quiroz [facility] 1.2.840.114 [id number] Univers 00:00:00 00:00:00 CATHERINE 350.1.13.10 i ty of [place] 4.[place].7.2.[place] [phone] Ky dical NAL 419 [facility] 2021-11-18 2021-11-18 Outpatient R TIMMYCRIS [facility] [id number] Univers 15:00:00 15:00:00 TIMMY CRIS [facility] 2021-11-16 2021-11-16 Orders [place], 1.2.840.1 [id number] Univers 00:00:00 00:00:00 Only Nakeshia U 53266.1.1 i ty of 3.412.2.7 [place] .3.150536 .8 [facility] 2021-11-16 2021-11-16 Orders [place], 1.2.840.1 [id number] Univers 00:00:00 00:00:00 Only Nakeshia U 94295.1.1 i ty of 3.412.2.7 [place] .3.027083 .8 [facility] 2021-11-15 2021-11-15 [facility] [id number] Univers 15:30:00 [facility]:42:[facility]-15 2021-11-15 Office [facility] 1.2.547.157 [id number] [id number] Univers 15:30:00 16:42:13 Visit Libby ALEXANDER 350.1.13.10 i ty of [place] [phone] [address] 2021-11-15 2021-11-15 [facility] [id number] [id number] Univers 15:30:00 15:30:00 LIBBY [facility] 2021-11-14 2021-11-14 [facility] 1.2.840.114 [id number] Univers 00:00:00 00:00:00 Cris ALEXANDER 350.1.13.10 ity of [place] 4.2.7.2.[place] [phone] Ky dicteresa [facility] 231 [facility] 2021-11-14 2021-11-14 Patient [facility] 1.2.840.114 [id number] Univers 00:00:00 00:00:00 Secure Msg Kimber ALEXANDER 350.1.13.10 ity of [place] 4.2.7.2.[place] [id number] Ky dical NAL 044 [facility] 2021-11-14 2021-11-14 Telephone Miles, 1.2.840.1 [id number] 1091 [id number] Univers 00:00:00 00:00:00 Nakeshia U 71043.1.1 i ty of 3.412.2.7 [place] .3.157364 MD Jackson8 [facility] 2021-11-14 2021-11-14 Telephone Miles, 1.2.840.1 [id number] 1091 [id number] Univers 00:00:00 00:00:00 Nakeshia U 84672.1.1 i ty of 3.412.2.7 [place] .3.473132 MD Jackson8 [facility] 2021-11-11 2021-11-11 Ancillary Miles, 1.2.840.1 [id number] 1091 [id number] Univers 09:15:00 11:00:00 Procedure Nakeshia U 91481.1.1 ity of 3.412.2.7 [place] .3.772563 MD Jackson8 [facility] 2021-11-11 2021-11-11 Ancillary EL Miles, 1.2.840.1 [id number] 1091 [id number] Univers 09:15:00 11:00:00 Procedure Nakeshia U 71748.1.1 ity of 3.412.2.7 [place] .3.439222 MD Jackson8 [facility] 2021-11-11 2021-11-11 Telephone [facility] 1.2.840.114 [id number] Univers 00:00:00 00:00:00 Kimberjonathan ALEXANDER 350.1.13.10 ity of [place] 4.2.7.2.[place] [phone] Ky dical NAL 231 [facility] 2021-11-11 2021-11-11 Telephone [facility] 1.2.840.114 [id number] Univers 00:00:00 00:00:00 Libby Dominguez CATHERINE 350.1.13.10 i ty of [place] 4[place]2.7.2.[place] [id number] Ky dical NAL 419 [facility] 2021-11-11 2021-11-11 Telephone [facility] 1.2.840.114 [id number] Univers 00:00:00 00:00:00 Kimber ALEXANDER 350.1.13.10 ity of [place] 4.2.7.2.[place] [phone] Ky dical NAL 044 [facility] 2021-11-11 2021-11-11 Orders Doctor ROMEO 1.2.840.114 [id number] Univers 00:00:00 00:00:00 Only Unassigned, SAUD 350.1.13.10 ity of [place] [facility] 4.2.7.2.686 Rajeev as [phone] [facility] [address] [place] 2021-11-11 2021-11-11 Telephone [place], 1.2.840.1 [id number] [id number] Univers 00:00:00 00:00:00 Cherrie Busby 91190.1.1 i ty of 3.412.2.7 [place] .3.522422 MD Carrera [facility] 2021-11-11 2021-11-11 Orders Florencio, 1.2.840.1 [id number] Univers 00:00:00 00:00:00 Only Nicol S 17444.1.1 ity of 3.412.2.7 [place] .3.867151 MD Jackson8 [facility] 2021-11-11 2021-11-11 Travel 1.2.840.1 1.2.680.605 8510 [id number] Univers 00:00:00 00:00:00 55164.1.1 350.1.13.41 ity of 3.412.2.7 2.2.7.3.698 [place] .3.407478 08Georgina.8 MD Jackson8 [facility] 2021-11-11 2021-11-11 Telephone [place], 1.2.840.1 [id number] [id number] Univers 00:00:00 00:00:00 Cherrie Busby 47794.1.1 i ty of 3.412.2.7 [place] .3.111687 .8 [facility] 2021-11-11 2021-11-11 Orders Florencio, 1.2.840.1 [id number] Univers 00:00:00 00:00:00 Only Nicol Dominguez 42705.1.1 ity of 3.412.2.7 [place] .3.933099 MD Jackson8 [facility] 2021-11-11 2021-11-11 Travel 1.2.840.1 1.2.615.963 5099 [id number] Univers 00:00:00 00:00:00 88793.1.1 350.1.13.41 ity of 3.412.2.7 2.2.7.3.698 [place] .3.528923 084.8 .8 [facility] 2021-11-09 2021-11-09 Telephone [facility] 1.2.840.114 [id number] Univers 00:00:00 00:00:00 Libby ALEXANDER 350.1.13.10 i ty of [place] [id number] Ky dical [address] 2021-11-08 2021-11-08 Outpatient R [facility] [id number] Univers 16:15:00 17:46:17 LIBBY ity of [facility] 2021-11-08 2021-11-08 Office [facility] 1.2.246.949 [id number] 2118 Univers 16:15:00 17:46:17 Visit Libby ALEXANDER 350.1.13.10 i ty of [place] 4[place].2.[place] [phone] Ky dical NAL 419 [facility] 2021-11-08 2021-11-08 Outpatient R [facility] [id number] Univers 16:15:00 17:46:17 LIBBY [facility] 2021-11-08 2021-11-08 Outpatient R SERGNATALEE [facility] [id number] Univers 16:15:00 16:15:00 LIBBY [facility] 2021-11-08 2021-11-08 Patient Reji [facility] 1.2.840.114 [id number] Univers 00:00:00 00:00:00 Secure Msg Kimber ALEXANDER 350.1.13.10 ity of [facility] 4.2.7.2.[place] [phone] Ky dical NAL 044 [facility] 2021-11-07 2021-11-07 Patient Evgeny [facility] 1.2.840.114 [id number] Univers 00:00:00 00:00:00 Outreach Felicia ALEXANDER 350.1.13.10 ity of [facility] 4.2.7.2.[place] [phone] Ky dical NAL 231 [facility] 2021-11-04 2021-11-04 [facility]medici [facility] 1.2.840.114 [id number] Univers 16:00:00 17:00:00 ne Visit Kimber ALEXANDER 350.1.13.10 ity of [facility] 4.2.7.2.[place] [phone] Ky dical [address] 2021-11-04 2021-11-04 [facility] [id number] Univers 16:00:00 16:00:00 KIMBER rojascal [facility] 2021-11-04 2021-11-04 [facility] [id number] [id number] Univers 16:00:00 16:00:00 [facility] 2021-11-04 2021-11-04 [facility] [id number] Univers 16:00:00 16:00:00 KIMBER [facility] 2021-11-03 2021-11-03 Telephone Miles, 1.2.840.1 [id number] Univers 00:00:00 00:00:00 Nakeshia U 34617.1.1 i ty of 3.412.2.7 [place] .3.061123 .8 [facility] 2021-11-03 2021-11-03 Telephone Theo, 1.2.840.1 [id number] 1091 [id number] Univers 00:00:00 00:00:00 Litty 51929.1.1 ity of 3.412.2.7 [place] .3.837600 .8 [facility] 2021-11-03 2021-11-03 Telephone Alex, 1.2.840.1 [id number] 1091 [id number] Univers 00:00:00 00:00:00 Nakeshia U 99669.1.1 i ty of 3.412.2.7 [place] .3.038155 .8 [facility] 2021-11-03 2021-11-03 Telephone Theo, 1.2.840.1 [id number] 1091 [id number] Univers 00:00:00 00:00:00 Litty 92842.1.1 ity of 3.412.2.7 [place] .3.152417 MD Jackson8 [facility] 2021-11-02 2021-11-02 Telephone Christa [facility] 1.2.840.114 [id number] Univers 00:00:00 00:00:00 [facility] 350.1.13.10 ity of [place] 4.2.7.2.686 Rajeev as SHELLI?BLEA [phone] Ky terrance PADRONEY [address] [place] [facility] 2021-11-02 2021-11-02 Telephone Timmy [facility] 1.2.840.114 [id number] Univers 00:00:00 00:00:00 Cris ALEXANDER 350.1.13.10 ity of [place] 4[place]7.2.[place] [phone] Ky terrance NAL [address] [facility] 2021-11-01 2021-11-01 Outpatient R ARAMIS ALVAREZ [facility] [id number] Univers 16:12:12 23:59:00 AARMIS ALVAREZ [facility] 2021-11-01 2021-11-01 [facility], Ang - Db [facility] 1.2.840.1 14 [id number] Univers 16:30:00 16:45:00 Visit Aramis Alvarez [facility] 350.1.13. 10 ity of [place] 4.2.7.2.686 Rajeev as SHELLI?BLEA [id number] Ky dical NEREIDAEY [address] [facility] [facility] 2021-11-01 2021-11-01 Outpatient ARAMIS ABDI [facility] [id number] Univers 15:00:00 16:03:20 ARAMIS ALVAREZ [facility] 2021-11-01 2021-11-01 [facility] 1.2.840.114 [id number] Univers 15:00:00 16:03:20 Visit [facility] 350.1.13.10 ity of [place] 4.2.7.2.686 Rajeev as SHELLI?BLEA [id number] Ky minhteresa BENITES 092 [facility] 2021-11-01 2021-11-01 Outpatient R ARAMIS ALVAREZ [facility] [id number] Univers 15:00:00 16:03:20 ARAMIS ALVAREZ [facility] 2021-10-31 2021-10-31 Patient Timmy [facility] 1.2.840.114 [id number] Univers 00:00:00 00:00:00 Secure Msg Ogechukwu [place] 350.1.13.10 ity of [place].2.[place] [id number] Ky dical [facility] 225 [facility] 2021-10-28 2021-10-28 Orders [place], 1.2.840.1 [id number] Univers 00:00:00 00:00:00 Only Cherrie Busby 60405.1.1 i ty of 3.412.2.7 [place] .3.115994 .8 [facility] 2021-10-28 2021-10-28 Orders Alex 1.2.840.1 [id number] Univers 00:00:00 00:00:00 Only Cherrie U 67244.1.1 i ty of 3.412.2.7 [place] .3.881885 MD Jackson8 [facility] 2021-10-26 2021-10-26 Office [facility] 1.2.840.114 [id number] Univers 13:00:00 14:00:00 Visit Miguel Ángel YAIR 350.1.13.10 i ty of [facility] 4.2.7.2.686 [place] [id number] [address] 2021-10-26 2021-10-26 [facility] [id number] Univers 13:00:00 13:00:00 MIGUEL ÁNGEL cal [facility] 2021-10-26 2021-10-26 Outpatient [facility] [id number] Univers 13:00:00 13:00:00 [facility] 2021-10-26 2021-10-26 [facility] [id number] Univers 13:00:00 13:00:00 MIGUEL ÁNGEL [facility] 2021-10-26 2021-10-26 Patient [facility] 1.2.840.114 [id number] Univers 00:00:00 00:00:00 Secure Msg Ogechukwu [place] 350.1.13.10 ity of [place] 4[place]2.7.2.[place] [phone] Ky dical NAL [address] [place] [address] 2021-10-26 2021-10-26 [facility] 1.2.840.114 [id number] Univers 00:00:00 00:00:00 Ogechukwu [place] 350.1.13.10 ity of [facility] 4.2.7.2.[place] [phone] Ky dical NAL [address] [place] [address] 2021-10-26 2021-10-26 [facility] 1.2.840.114 [id number] Univers 00:00:00 00:00:00 Secure Msg Ogechukwu [place] 350.1.13.10 ity of [place] 4.2.7.2.[place] [id number] Ky dical NAL 044 [facility] 2021-10-26 2021-10-26 Kaila Warner [facility] 1.2.840.114 [id number] Univers 00:00:00 00:00:00 Cris ALEXANDER 350.1.13.10 ity of [facility] 4.2.7.2.[place] [phone] Ky dical NAL 044 [facility] 2021-10-25 2021-10-25 Outpatient R ARAMIS ALVAREZ [facility] [id number] Univers 15:40:00 15:40:00 ARAMIS ALVAREZ ity [facility] 2021-10-25 2021-10-25 Telephone Theo, 1.2.840.1 [id number] [id number] Univers 00:00:00 00:00:00 Litty 32262.1.1 ity of 3.412.2.7 [place] .3.922346 MD Carrera [facility] 2021-10-25 2021-10-25 Telephone Theo, 1.2.840.1 [id number] [id number] Univers 00:00:00 00:00:00 Litty 74473.1.1 ity of 3.412.2.7 [place] .3.680575 MD Carrera [facility] 2021-10-24 2021-10-24 Telephone Nory Wenxia 1.2.840.1 [id number] Univers 00:00:00 00:00:00 80912.1.1 ity of 3.412.2.7 [place] .3.241506 MD Jackson8 [facility] 2021-10-24 2021-10-24 Telephone Nory Wenxia 1.2.840.1 [id number] Univers 00:00:00 00:00:00 76233.1.1 ity of 3.412.2.7 [place] .3.238762 MD Carrera [facility] 2021-10-22 2021-10-22 Telephone Reji [facility] 1.2.840.114 [id number] Univers 00:00:00 00:00:00 Kimber A CATHERINE 350.1.13.10 ity of [facility] 4.2.7.2.[place] [id number] [facility] 231 [facility] 2021-10-21 2021-10-21 Outpatient R CRIS WARNER [facility] [id number] Univers 15:55:47 23:59:00 CRIS WARNER ity [facility] 2021-10-21 2021-10-21 [facility] 1.2.821.086 [id number] Univers 15:45:00 23:59:00 Encounter Cris ALEXANDER 350.1.13.10 [place] [id number] [address] 2021-10-21 2021-10-21 Outpatient R CRIS AWRNER [facility] [id number] Univers 13:30:00 15:24:01 [facility]-10-21 2021-10-21 Office [facility] 1.2.840.114 [id number] Univers 13:30:00 15:24:01 Visit Cris ALEXANDER 350.1.13.10 [place] of [place] [id number] [facility] 044 [facility] 2021-10-19 2021-10-19 Telephone [facility] 1.2.840.114 [id number] Univers 00:00:00 00:00:00 Cris ALEXANDER 350.1.13.10 ity of [facility] 4.2.7.2.[place] [id number] [facility] 044 [facility] 2021-10-19 2021-10-19 [facility]phone [facility] 1.2.840.114 [id number] Univers 00:00:00 00:00:00 Cris ALEXANDER 350.1.13.10 ity of [place] 4[place]2.7.2.[place] [id number] Ky dical NAL 044 [facility] 2021-10-18 2021-10-18 Refill Timmy [facility] 1.2.840.114 [id number] Univers 00:00:00 00:00:00 Pierreivan CATHERINE 350.1.13.10 ity of [place] 4.2.7.2.[place] [id number] Ky dical NAL 044 [facility] 2021-10-18 2021-10-18 Telephone Lavon Cueto 1.2.840.1 [id number] Univers 00:00:00 00:00:00 78658.1.1 ity of 3.412.2.7 [place] .3.826019 .8 [facility] 2021-10-18 2021-10-18 Telephone Lavon Cueto 1.2.840.1 [id number] Univers 00:00:00 00:00:00 68586.1.1 ity of 3.412.2.7 [place] .3.048378 .8 [facility] 2021-10-13 2021-10-13 Telephone Timmy [facility] 1.2.840.114 [id number] Univers 00:00:00 00:00:00 Cris ALEXANDER 350.1.13.10 ity of [place] 4.2.7.2.[place] [id number] Ky dical NAL 231 [facility] 2021-10-13 2021-10-13 Telephone Timmy [facility] 1.2.840.114 [id number] Univers 00:00:00 00:00:00 Cris ALEXANDER 350.1.13.10 ity of [place] 4.2.7.2.[place] [id number] Ky dical NAL 044 [facility] 2021-10-12 2021-10-12 Telephone Darrel [facility] 1.2.245.081 [id number] Univers 00:00:00 00:00:00 Miguel Ángel MAZARIEGOS 350.1.13.10 i ty [place].2.[place] [id number] [facility] [address] 2021-10-11 2021-10-11 Patient Timmy MOMB 1.2.840.114 [id number] Univers 00:00:00 00:00:00 Secure Msg Ogechukwu [place] 350.1.13.10 ity of [place] 4.2.7.2.[place] [id number] Ky dical NAL [address] [place] [address] 2021-10-11 2021-10-11 Telephone Carlyle [facility] 1.2.736.171 [id number] [facility]0 Univers 00:00:00 00:00:00 [facility] 350.1.13.10 it y of [place] - [phone] [facility] [address] 2021-10-11 2021-10-11 Patient Timmy [facility] 1.2.840.114 [id number] Univers 00:00:00 00:00:00 Secure Msg Ogechukwu [place] 350.1.13.10 ity of [place] 4.2.7.2.[place] [id number] Ky dical NAL [address] [place] [address] 2021-10-10 2021-10-10 Patient Timmy [facility] 1.2.840.114 [id number] Univers 00:00:00 00:00:00 Secure Msg Ogechukwu [place] 350.1.13.10 ity of [place] 4[place]2.7.2.[place] [phone] Ky dical NAL 044 [facility] 2021-10-10 2021-10-10 Patient Timmy [facility] 1.2.840.114 [id number] Univers 00:00:00 00:00:00 Secure Msg Ogechukwu [place] 350.1.13.10 ity of [place] 4.2.7.2.[place] [id number] Ky dical NAL 044 [facility] 2021-10-10 2021-10-10 Patient Timmy [facility] 1.2.840.114 [id number] Univers 00:00:00 00:00:00 Secure Msg Cris ALEXANDER 350.1.13.10 ity of [place] 4[place]2.[place].2.[place] [id number] Ky dicteresa LINDSAY [address] [place] [address] 2021-10-10 2021-10-10 Telephone Timmy [facility] 1.2.840.114 [id number] Univers 00:00:00 00:00:00 Cris ALEXANDER 350.1.13.10 ity of [place] 4.2.7.2.[place] [id number] Ky dical ANGÉLICA [address] [place] [address] 2021-10-10 2021-10-10 Telephone Timmy [facility] 1.2.840.114 [id number] Univers 00:00:00 00:00:00 Cris ALEXANDER 350.1.13.10 ity of [facility] 4.2.7.2.[place] [phone] Ky dical ANGÉLICA [address] [place] [address] 2021-10-07 2021-10-07 Outpatient R TIMMY AIMEAGUSTINIVAN [facility] [id number] Univers 15:00:00 17:04:53 [facility] 2021-10-07 2021-10-07 Outpatient R CRIS WARNER [facility] [id number] Univers 15:00:00 17:04:53 [facility] 2021-10-07 2021-10-07 Office Timmy [facility] 1.2.840.114 [id number] Univers 15:00:00 17:04:53 Visit Cris ALEXANDER 350.1.13.10 it[place] of [place] 4[place]7.2.[id number] [place] dicteresa NAL [address] [place] [address] 2021-10-07 2021-10-07 Outpatient R AIME WARNERAGUSTINSARITA [facility] [id number] Univers 15:00:00 17:04:53 CRIS WARNER ity [facility] 2021-10-07 2021-10-07 Orders Doctor AGUEDA 1.2.840.114 [id number] Univers 00:00:00 00:00:00 Only Unassigned, SAUD 350.1.13.10 ity of [place] [facility] 4.2.7.2.686 Rajeev as [id number] [address] 2021-10-04 2021-10-04 Curtain Cutter Gerald, Adc Lab Main [facility] 1.2.8 40.114 [id number] [facility] 12:30:00 12:45:00 Visit Cris Warner 350.1.13.1 0 ity of [facility] [place] [id number] [place] dical N[place] [address] [facility] 2021-10-04 2021-10-04 Outpatient R CRIS WARNER [facility] [id number] Univers 11:00:00 12:11:47 CRIS WARNERy [facility] 2021-10-04 2021-10-04 Outpatient R CRIS WARNER [facility] [id number] Univers 11:00:00 12:11:47 CRIS WARNER ity [facility] 2021-10-04 2021-10-04 [facility] 1.2.840.[id number] [place] [address] 11:00:00 12:11:47 Visit Cris ALEXANDER 350.1.13.10 ity of [facility] [id number] [place]ical N[place] 044 [facility] 2021-09-26 2021-09-26 Consult Virgil Morgan2.840.1 [id number] Univers 09:00:00 10:10:42 Tigist 50316.1.1 ity of 3.412.2.7 [place] .3.671510 .8 [facility] 2021-09-26 2021-09-26 Consult BAO Morgan 1Renetta2.840.1 [id number] Univers 09:00:00 10:10:42 Tigist 46274.1.1 ity of 3.412.2.7 [place] .3.403920 MD Carrera [facility] 2021-09-26 2021-09-26 Travel 1.2.840.1 1.2.430.269 [id number] Univers 00:00:00 00:00:00 28459.1.1 350.1.13.41 ity of 3.412.2.[place]3.698 [place] .3.177085 084.8 MD Carrera [facility] 2021-09-26 2021-09-26 Travel 1.2.840.1 1.2.451.735 [id number] Univers 00:00:00 00:00:00 14488.1.1 350.1.13.41 ity of 3.412.2.[place].698 [place] .3.447547 084.Cory Carrera [facility] 2021-09-21 2021-09-21 Documentat Amber, 1.2.840.1 [id number] Univers 00:00:00 00:00:00 ion Sesar Chopra 82462.1.1 i ty of 3.412.2.7 [place] .3.818021 MD Carrera [facility] 2021-09-21 2021-09-21 Documentat Amber 1.2.840.1 [id number] Univers 00:00:00 00:00:00 ion Sesar Chopra 35421.1.1 i ty of 3.412.2.7 [place] .3.160528 MD Carrera [facility] 2021-09-20 2021-09-20 Kim Johnson, 1.2.840.1 [id number] Univers 00:00:00 00:00:00 Only Cherrie Busby 68209.1.1 i ty of 3.412.2.7 [place] .3.410122 MD Carrera [facility] 2021-09-20 2021-09-20 [facility], 1.2.840.1 [id number] Univers 00:00:00 00:00:00 Only Nakeshia U 00866.1.1 i ty of 3.412.2.7 [place] .3.796401 MD Jackson8 [facility] 2021-09-16 2021-09-16 [facility], 1.2.840.1 [id number] Univers 12:50:59 23:59:00 Encounter Nakeshia U 54512.1.1 ity of 3.412.2.7 [place] .3Renetta357066 MD Jackson8 [facility] 2021-09-16 2021-09-16 [facility], 1.2.840.1 [id number] 82533 Univers 12:50:59 23:59:00 Encounter Nakeshia U 44089.1.1 ity of 3.412.2.7 [place] .3.302113 MD Carrera [facility] 2021-09-16 2021-09-16 [facility], 1.2.840.1 [id number] 75104 79969 Univers 16:00:00 16:00:00 Support Nakeshia U 61199.1.1 i ty of 3.412.2.7 [place] .3Renetta444096 MD Carrera [facility] 2021-09-16 2021-09-16 [facility], 1.2.840.1 [id number] 33765 68242 Univers 16:00:00 16:00:00 Support Nakeshia U 98016.1.1 i ty of 3.412.2.7 [place] .3Renetta067382 MD Jackson8 [facility] 2021-09-16 2021-09-16 [facility], 1.2.840.1 [id number] 54300 50382 Univers 10:19:45 12:49:00 Encounter Nakeshia U 75199.1.1 ity of 3.412.2.7 [place] .3Renetta676587 MD Jackson8 [facility] 2021-09-16 2021-09-16 [facility] Miles, 1.2.840.1 [id number] 55798 68245 Univers 10:19:45 12:49:00 Encounter Cherrie Busby 08714.1.1 ity of 3.412.2.7 [place] .3.676997 MD Carrera [facility] 2021-09-16 2021-09-16 [facility], 1.2.840.1 [id number] 3760 Univers 09:20:00 10:15:48 Visit Cherrie U 61697.1.1 i ty of 3.412.2.7 [place] .3.859378 MD Carrera [facility] 2021-09-16 2021-09-16 Office [facility], 1.2.840.1 [id number] 5021 Univers 09:20:00 10:15:48 Visit Cherrie Busby 91712.1.1 i ty of 3.412.2.7 [place] .3.527086 MD [facility]rera [facility] 2021-09-16 2021-09-16 NPR 1.2.840.1 [id number] 4774 Univers 08:00:00 08:00:00 67528.1.1 ity of 3.412.2.7 [place] .3.496894 MD Carrera [facility] 2021-09-16 2021-09-16 NPR EL 1.2.840.1 [id number] 2245 Univers 08:00:00 08:00:00 10648.1.1 ity of 3.412.2.7 [place] .3.745537 MD Carrera [facility] 2021-09-16 2021-09-16 Travel 1.2.840.1 1.2.799.709 4880 [id number] Univers 00:00:00 00:00:00 15383.1.1 350.1.13.41 ity of 3.412.2.7 [place]3.698 [place].5515[place] 084.8 MD Carrera [facility] 2021-09-16 2021-09-16 Travel 1.2.840.1 1.2.946.183 5080 245752 Univers 00:00:00 00:00:00 46281.1.1 350.1.13.41 ity of 3.412.2.7 [place].3.698 [place]3.955[place] 084.8 MD [facility]rera [facility] 2021-09-14 2021-09-14 Telephone [place], 1.2.840.1 [id number] 1089 [id number] Univers 00:00:00 00:00:00 Nakeshia U 32064.1.1 i ty of 3.412.2.7 [place] .3.139694 MD Jackson8 [facility] 2021-09-14 2021-09-14 Telephone [place], 1.2.840.1 [id number] 1089 [id number] Univers 00:00:00 00:00:00 Nakeshia U 57491.1.1 i ty of 3.412.2.7 [place] .3.520651 MD [facility]rera [facility] 2021-08-26 2021-08-26 Orders [place], 1.2.840.1 [id number] 6621 Univers 00:00:00 00:00:00 Only Nakeshia U 76500.1.1 i ty of 3.412.2.7 [place] .3.611919 MD [facility]rera [facility] 2021-08-26 2021-08-26 Documentat Osmany, 1.2.840.1 [id number] 548 [id number] Univers 00:00:00 00:00:00 ion Alisha 28318.1.1 ity of [place] 3.412.2.7 [place] .3.368132 MD [facility]rera [facility] 2021-08-26 2021-08-26 Orders [place], 1.2.840.1 [id number] 1277 Univers 00:00:00 00:00:00 Only Nakeshia U 90280.1.1 i ty of 3.412.2.7 [place] .3.019676 MD Jackson8 [facility] 2021-08-26 2021-08-26 Documentat Osmany, 1.2.840.1 [id number] 508 [id number] Univers 00:00:00 00:00:00 ion Alisha 40065.1.1 ity of [place] 3.412.2.7 [place] .3.367540 MD [facility]rera [facility] 2021-08-22 2021-08-22 Telephone Tameka, 1.2.840.1 [id number] 1 [id number] Univers 00:00:00 00:00:00 Latira 00753.1.1 ity of 3.412.2.7 [place] .3.975915 MD [facility]rera [facility] 2021-08-22 2021-08-22 Telephone Tameka, 1.2.840.1 [id number] 1 [id number] Univers 00:00:00 00:00:00 Latira 55812.1.1 ity of 3.412.2.7 [place] .3.241809 MD [facility]rera [facility] 2021-08-21 2021-08-21 Emergency Peña, 1.2.840.1 [id number] 1088 [id number] Univers 17:47:00 19:00:00 Thomas 46718.1.1 ity of 3.412.2.7 [place] .3.294635 MD [facility]rera [facility] 2021-08-21 2021-08-21 Emergency UR Peña, 1.2.840.1 [id number] 1088 [id number] Univers 17:47:00 19:00:00 Thomas 43886.1.1 ity of 3.412.2.7 [place] .3.210864 MD Carrera [facility] 2021-08-21 2021-08-21 Travel 1.2.840.1 1.2.819.947 6432 [id number] Univers 00:00:00 00:00:00 08315.1.1 350.1.13.41 ity of 3.412.2.7 [place].3.698 [place] .3.2706[place] 084.8 MD [facility]rera [facility] 2021-08-21 2021-08-21 Telephone Cueva, 1.2.840.1 [id number] 1088 [id number] Univers 00:00:00 00:00:00 Felicia Silver 71793.1.1 ity of 3.412.2.7 [place] .3.675868 MD [facility]rera [facility] 2021-08-21 2021-08-21 Travel 1.2.840.1 1.2.201.788 2876 162905 Univers 00:00:00 00:00:00 74774.1.1 350.1.13.41 ity of 3.412.2.7 [place]7.3.698 [place].660[place] 084.8 MD Jackson8 [facility] 2021-08-21 2021-08-21 Telephone Cueva, 1.2.840.1 [id number] 1088 [id number] Univers 00:00:00 00:00:00 Felicia Silver 56704.1.1 ity of 3.412.2.7 [place] .3.745493 MD Carrera [facility] 2021-08-20 2021-08-20 Emergency Peña, 1.2.840.1 [id number] 1088 768007 Univers 17:29:00 23:20:00 Thomas 99745.1.1 ity of 3.412.2.7 [place] .3.626057 MD Jackson8 [facility] 2021-08-20 2021-08-20 Emergency ER Peña, 1.2.840.1 138112593 1088 845513 Univers 17:29:00 23:20:00 Thomas 45790.1.1 ity of 3.412.2.7 [place] .3.715662 MD Carrera [facility] 2021-08-20 2021-08-20 Emergency [place], [facility] [id number] MD 19:48:21 20:26:12 THOMAS Jaime [facility] 2021-08-20 2021-08-20 Travel 1.2.840.1 1.2.647.339 8123 [id number] Univers 00:00:00 00:00:00 44859.1.1 350.1.13.41 ity of 3.412.2.7 [place]7.3.698 [place]3.8526[place] 084.8 MD Jackson8 [facility] 2021-08-20 2021-08-20 Travel 1.2.840.1 1.2.869.552 3197 514246 Univers 00:00:00 00:00:00 58405.1.1 350.1.13.41 ity of 3.412.2.7 2.[place]7.3.698 [place] .3.089522 084.8 MD Jackson8 [facility] 2021-08-19 2021-08-19 Travel 1.2.840.1 1.2.274.977 8925 372109 Univers 00:00:00 00:00:00 66936.1.1 350.1.13.41 ity of 3.412.2.7 [place]7.3.698 [place] .3.978528 084.8 MD Jackson8 [facility] 2021-08-19 2021-08-19 Travel 1.2.840.1 1.2.762.746 3991 973194 Univers 00:00:00 00:00:00 38144.1.1 350.1.13.41 ity of 3.412.2.7 2.2.7.3.698 [place] .3.672931 084.8 MD Carrera [facility] 2021-08-18 2021-08-18 Office Fernando Kirkland 1.2.005.512 2289 5350 [facility] 13:00:00 15:14:26 Visit Aldo AMBULATOR 350.1.13.21 College Y 0.2.7.2.686 of 303.3995620 Medi eugenia 300 e 2021-08-17 2021-08-17 Telephone Arro, 1.2.840.1 [id number] 1088 [id number] [facility] 00:00:00 00:00:00 Jennifer Armendariz 75847.1.1 i ty of 3.412.2.7 [place] .3.824130 MD Jackson8 [facility] 2021-08-17 2021-08-17 Telephone [place], 1.2.840.1 [id number] 1088 [id number] Univers 00:00:00 00:00:00 Jennifer Armendariz 56294.1.1 i ty of 3.412.2.7 [place] .3.895069 MD Carrera [facility] 2021-08-16 2021-08-16 Kaila Villalobos 1.2.840.1 [id number] 1174 Univers 00:00:00 00:00:00 Dominga Hameed 13287.1.1 ity of 3.412.2.7 [place] .3.055082 MD [facility]rera [facility] 2021-08-16 2021-08-16 Kaila Villalobos 1.2.840.1 [id number] 6469 Univers 00:00:00 00:00:00 Dominga Hameed 96882.1.1 ity of 3.412.2.7 [place] .3.592239 MD [facility]rera [facility] 2021-08-13 2021-08-14 Emergency MarcyOsvaldo 1.2.840.1 1010 21896 [id number] Univers 19:56:00 09:37:00 Dominga Villalobos 30948.1.1 ity of 3.412.2.7 [place] .3.655589 MD [facility]rera [facility] 2021-08-13 2021-08-14 Emergency UR MarcyOsvaldo 1.2.840.1 1010 74557 [id number] Univers 19:56:00 09:37:00 Dominga Villalobos 31793.1.1 ity of 3.412.2.7 [place] .3.677052 MD Carrera [facility] 2021-08-14 2021-08-14 Travel 1.2.840.1 1.2.988.485 8880 710616 Univers 00:00:00 00:00:00 94539.1.1 350.1.13.41 ity of 3.412.2.7 [place]7.3.698 [place]3.803077 084.8 MD Carrera [facility] 2021-08-14 2021-08-14 Travel 1.2.840.1 1.2.475.393 9124 463839 Univers 00:00:00 00:00:00 73808.1.1 350.1.13.41 ity of 3.412.2.7 2.[place]7.3.698 [place] .3.620749 084.8 MD Jackson8 [facility] 2021-08-13 2021-08-13 Travel 1.2.840.1 1.2.588.862 2561 075065 Univers 00:00:00 00:00:00 58186.1.1 350.1.13.41 ity of 3.412.2.7 2.2.7.3.698 [place] .3.214179 084.8 MD Jackson8 [facility] 2021-08-13 2021-08-13 Travel 1.2.840.1 1.2.703.489 9662 057245 [facility] 00:00:00 00:00:00 01264.1.1 350.1.13.41 ity of 3.412.2.7 2.[place].7.3.698 [place] .3.894691 084.8 MD Jackson8 [facility] 2021-07-27 2021-07-27 Telephone Bev John 1.2.840.11 4 [id number] [place] 00:00:00 00:00:00 Bev John 350.1.13.58 Health Medical 9.2.7.2.686 [place] 512.7564196 1 2021-07-27 2021-07-27 Nurse Jayla Roblero 1.2.840.11 4 [id number] [place] 00:00:[place] 00:00:00 Triage Jayla Roblero 350.1.13.58 Health MEDICAL 9.2.7.2.686 [place] 677.3530893 0 2021-07-26 2021-07-26 Outpatient ERICKSON_R [facility] [address] [place] 12:24:00 12:24:00 [facility]28 [facility] 2021-07-25 2021-07-25 Telephone Luz Massey 1.2.840.1 14 [id number] [place] 00:00:00 00:00:00 Luz Massey 350.1.13.58 Health MEDICAL 9.2.7.2.686 CENTER 085.6499608 0 2021-07-25 2021-07-25 Telephone Mira Garcia 1.2.84 0.114 [id number] [place] 00:00:00 00:00:00 Mira Garcia 350.1.13.58 Health Medical 9.2.7.2.686 [place] 502.1210694 1 2021-07-15 2021-07-15 Orders Bev John 1.2.840.114 [id number] [place] 00:00:00 00:00:00 Only Bev John 350.1.13.58 Health Medical 9.2.7.2.686 [place] 138.0419741 1 2021-07-14 2021-07-14 Telephone Randee Gonzalez DAFNE AGUILAR 1.2.840 .114 [id number] [place] 00:00:00 00:00:00 Randee Gonzalez 350.1.13.58 Health MEDICAL 9.2.7.2.686 CENTER 926.2336536 0 2021-07-13 2021-07-13 Patient Tiffany Moscoso 1.2.840.114 [id number] [place] 00:00:00 00:00:00 Outreach Tiffany Moscoso 350.1.13.58 Health Medical 9.2.7.2.686 [place] 248.7587377 1 2021-07-13 2021-07-13 Orders Finesse Grimm 1.2.772.292 2373 78853 [place] 00:00:00 00:00:00 Only Nomi Alvarez 350.1.13.58 H [facility] Medical 9.2.7.2.686 [place] 141.3439914 1 2021-07-13 2021-07-13 Orders Finesse Grimm 1.2.857.701 9470 42193 [place] 00:00:00 00:00:00 Only Nomi [place] 350.1.13.58 H ealth Medical 9.2.7.2.686 [place] 738.7198021 1 2021-07-13 2021-07-13 Telephone Fani Hartley 1.2.840.1 14 [id number] [place] 00:00:00 00:00:00 Fani Hartley 350.1.13.58 Health MEDICAL 9.2.7.2.686 [place] 826.7396811 0 2021-07-13 2021-07-13 Telephone Bev Johnmary 1.2.840.11 4 [id number] [place] 00:00:00 00:00:00 Bev John [place] 350.1.13.58 Health Medical 9.2.7.2.686 [place] 773.1763462 1 2021-07-12 2021-07-12 Office Finesse Grimm 1.2.393.534 9656 46949 [place] 15:00:00 16:31:54 Visit Nomi Hesse 350.1.13.58 H ealth Medical 9.2.7.2.686 [place] 588.6725415 1 2021-07-08 2021-07-08 Orders Finesse Grimm 1.2.976.170 1110 92739 [place] 00:00:00 00:00:00 Only Nomi Sanchezaire 350.1.13.58 H ealth Medical 9.2.7.2.686 [place] 713.9190439 1 2021-07-08 2021-07-08 Telephone Finesse Grimm 1.2.840.114 13 [id number] [place] 00:00:00 00:00:00 Nomi Sanchezaire 350.1.13.58 H ealth Medical 9.2.7.2.686 [place] 278.5724729 1 2021-07-07 2021-07-07 Telephone Finesse Grimm 1.2.840.114 13 [id number] [place] 00:00:00 00:00:00 Nomi [place] 350.1.13.58 H ealth Medical 9.2.7.2.686 [place] 569.6156361 1 2021-06-17 2021-06-17 Telephone Tram Alonso [facility] 1.2.840.11 4 [id number] [place] 00:00:00 00:00:00 Tram Alonso 350.1.13.58 Health MEDICAL 9.2.7.2.686 CENTER 786.5266225 0 2021-06-17 2021-06-17 Orders Finesse Grimm 1.2.449.904 4063 77078 [place] 00:00:00 00:00:00 Only Nomi [place] [facility].1.13.58 [facility] 9.2.7.2.686 [place] 231.2474963 1 2021-06-17 2021-06-17 Orders Finesse Grimm 1.2.820.276 1068 87477 [place] 00:00:00 00:00:00 Only Nomi [place] 350.1.13.58 H ealt Medical 9.2.7.2.686 [place] 077.0154107 1 2021-06-17 2021-06-17 Orders Bev John 1.2.840.114 [id number] [place] 00:00:00 00:00:00 Only Bev Johne 350.1.13.58 [facility] Medical 9.2.7.2.686 [place] 856.2080871 1 2021-06-09 2021-06-09 Orders Finesse Grimm 1.2.199.245 3623 34480 [place] 00:00:00 00:00:00 Only Nomi [place] 350.1.13.58 H ealt Medical 9.2.7.2.686 [place] 979.1403554 1 2021-06-09 2021-06-09 Orders Finesse Grimm 1.2.496.073 3770 16336 [place] 00:00:00 00:00:00 Only Nomi [place] 350.1.13.58 H ealt Medical 9.2.7.2.686 [place] 531.2717388 1 2021-06-09 2021-06-09 Telephone Finesse Grimm 1.2.840.114 12 [id number] [place] 00:00:00 00:00:00 Nomikeara Sanchez[place] 350.1.13.58 H ealth Medical 9.2.7.2.686 [place] 981.1764535 1 2021-06-07 2021-06-07 Deon Johnsonmary 1.2.026.628 7121 04700 [place] 00:00:00 00:00:00 Only Nomikeara SanchezB[place] 350.1.13.58 H ealth Medical 9.2.7.2.686 [place] 140.2751444 1 2021-06-07 2021-06-07 Refill Selam Gómez [place] 1.2.84 0.114 [id number] [place] 00:00:00 00:00:00 Selam Gómez 350.1.13.58 Health MEDICAL 9.2.7.2.686 CENTER 089.0867430 0 2021-06-07 2021-06-07 Kim Sirisha Finesse 1.2.331.400 3504 40665 [place] 00:00:00 00:00:00 Only Nomi Hesse 350.1.13.58 H ealth Medical 9.2.7.2.686 [place] 484.8056199 1 2021-06-07 2021-06-07 Refill Deon Grimmmary 1.2.555.877 2294 31082 [place] 00:00:00 00:00:00 Nomikeara SanchezB[place] 350.1.13.58 H ealth Medical 9.2.7.2.686 [place] 964.1009568 1 2021-06-07 2021-06-07 Telephone Beba العراقي DAFNE AGUILAR 1.2.840.1 14 [id number] [place] 00:00:00 00:00:00 Dulce Maria Beba VICTOR MZA 350.1.13.58 Health MEDICAL 9.2.7.2.686 CENTER 552.1091648 0 2021-06-03 2021-06-03 Nurse Natalya Toribio 1.2.840.114 [id number] [place] 00:00:00 00:00:00 Triage Natalya Toribio 350.1.13.58 Health MEDICAL 9.2.7.2.686 CENTER 604.6050633 0 2021-06-03 2021-06-03 Orders Finesse Grimm 1.2.219.420 0814 88534 [place] 00:00:00 00:00:00 Only Nomi Alvarez 350.1.13.58 H ealth Medical 9.2.7.2.686 [place] 857.8189872 1 2021-05-25 2021-05-25 Refill Finesse Grimm 1.2.908.839 4719 50824 [place] 00:00:00 00:00:00 Nomi Hesse 350.1.13.58 H ealth Medical 9.2.7.2.686 [place] 068.7307939 1 2021-05-25 2021-05-25 Telephone Finesse Grimm 1.2.840.114 12 [id number] [place] 00:00:00 00:00:00 Nomi Hesse 350.1.13.58 H ealth Medical 9.2.7.2.686 [place] 477.5729196 1 2021-05-20 2021-05-20 Finesse Johnson 1.2.372.558 2063 81710 [place] 00:00:00 00:00:00 Only Nomi [place]esse 350.1.13.58 H ealth Medical 9.2.7.2.686 [place] 960.5916171 1 2021-05-18 2021-05-18 Refill Finesse Grimm 1.2.487.075 4701 45379 [place] 00:00:00 00:00:00 Nomi Hesse 350.1.13.58 H ealth Medical 9.2.7.2.686 [place] 414.6783785 1 2021-05-11 2021-05-11 Telephone Sendy Aguilar 1.2.840.1 14 [id number] [place] 00:00:00 00:00:00 Sendy Aguilar 350.1.13.58 [facility] MEDICAL 9.2.7.2.686 [place] 905.9737677 0 2021-05-11 2021-05-11 Telephone Randee Gonzalez 1.2.840 .114 [id number] [place] 00:00:00 00:00:00 Randee Gonzalez VICTOR MZA 350.1.13.58 Health MEDICAL 9.2.7.2.686 [place] 829.4731917 0 2021-05-11 2021-05-11 Refill DAFNE Grimm 1.2.840.114 22573 8038 [place] 00:00:00 00:00:00 Nomi BELLAIRE 350.1.13.58 H ealt MEDICAL 9.2.7.2.[address] [facility] [id number] 4 2021-05-11 2021-05-11 Orders SirishaFinesse 1.2.412.391 8807 71897 [place] 00:00:00 00:00:00 Only Nomi Sanchezaire 350.1.13.58 H ealt Medical 9.2.7.2.686 [place] 033.1152692 1 2021-05-11 2021-05-11 Telephone Finesse Grimm 1.2.840.114 12 [id number] [place] 00:00:00 00:00:00 Nomi [place] 350.1.13.58 H ealth Medical 9.2.7.2.686 [place] 571.8709157 1 2021-04-28 2021-04-28 Orders Sirisha Deonmary 1.2.314.933 8374 25303 [place] 00:00:00 00:00:00 Only Nomi Sanchezaire 350.1.13.58 H ealth Medical 9.2.7.2.686 [place] 051.4737599 1 2021-04-27 2021-04-27 Telephone Curtis Eric 1.2.840.1 14 [id number] [place] 00:00:00 00:00:00 Curtis Eric 350.1.13.58 Health MEDICAL 9.2.7.2.686 [place] 082.1808717 0 2021-04-27 2021-04-27 Orders Bev John 1.2.840.114 [id number] [place] 00:00:00 00:00:00 Only Bev John 350.1.13.58 Health Medical 9.2.7.2.686 [place] 168.3227864 1 2021-04-26 2021-04-26 Refill Finesse Grimm 1.2.732.226 7742 65039 [place] 00:00:00 00:00:00 Nomi Alvarez 350.1.13.58 H ealth Medical 9.2.7.2.686 [place] 169.4789988 1 2021-04-22 2021-04-22 Telephone Finesse Grimm 1.2.840.114 12 [id number] [place] 00:00:00 00:00:00 Nomi Alvarez 350.1.13.58 H ealth Medical 9.2.7.2.686 [place] 716.7700670 1 2021-04-13 2021-04-13 Refill Finesse Grimm 1.2.216.810 2545 78548 [place] 00:00:00 00:00:00 Nomi Alvarez 350.1.13.58 H ealth Medical 9.2.7.2.686 [place] 352.5651826 1 2021-04-11 2021-04-11 [facility] Finesse Grimm 1.2.009.342 7815 93012 [place] 00:00:00 00:00:00 Only Nomi Hesse 350.1.13.58 H ealth Medical 9.2.7.2.686 [place] 189.2545854 1 2021-04-10 2021-04-10 Telephone leny Yari [facility] 1.2.840. 114 [id number] [place] 00:00:00 00:00:00 Yari [place] 350.1.13.58 [facility] MEDICAL 9.2.7.2.686 [place] 166.5033483 0 2021-03-30 2021-03-30 Refill Sirisha DAFNE 1.2.840.114 45854 0087 [place] 00:00:00 00:00:00 Nomi ALVAREZ 350.1.13.58 H ealth MEDICAL 9.2.7.2.[address] [facility] [id number] 4 2021-03-30 2021-03-30 Refill Finesse Grimm 1.2.569.589 8162 09829 [place] 00:00:00 00:00:00 Nomikeara [place]esse 350.1.13.58 H ealth Medical 9.2.7.2.686 [place] 897.2417107 1 2021-03-30 2021-03-30 Finesse Johnson 1.2.626.892 3746 47551 [place] 00:00:00 00:00:00 Only Nomikeara [place] 350.1.13.58 H ealth Medical 9.2.7.2.686 [place] 240.2711953 1 2021-03-30 2021-03-30 Telephone KahlilskyeMira muse 1.2.840 .114 [id number] [place] 00:00:00 00:00:00 MelomichaMira 350.1.13.58 Health MEDICAL 9.2.7.2.686 [place] 845.1121801 0 2021-03-30 2021-03-30 Telephone Finesse Grimm 1.2.840.114 12 [id number] [place] 00:00:00 00:00:00 Nomikeara [place]esse 350.1.13.58 H ealth Medical 9.2.7.2.686 [place] 715.6125395 1 2021-03-16 2021-03-16 Refill Finesse Grimm 1.2.302.079 4424 89142 [place] 00:00:00 00:00:00 Nmoi [place] 350.1.13.58 H ealth Medical 9.2.7.2.686 [place] 112.5049722 1 2021-03-16 2021-03-16 Telephone Demond Daniellelogan AGUILAR 1.2.840.1 14 [id number] [place] 00:00:00 00:00:00 Demond Daniellelogan DE LEON 350.1.13.58 Health MEDICAL 9.2.7.2.686 [place] 018.2831969 0 2021-03-16 2021-03-16 Finesse Johnson 1.2.732.064 0104 36158 [place] 00:00:00 00:00:00 Only Nomi [place] 350.1.13.58 H ealth Medical 9.2.7.2.686 [place] 061.2307358 1 2021-03-16 2021-03-16 Kim SirishaDeonmary 1.2.740.007 7780 70172 [place] 00:00:00 00:00:00 Only Nomi Alvarez 350.1.13.58 H [facility] Medical 9.2.7.2.686 [place] 297.2033916 1 2020-06-30 2020-06-30 Aaron GRIMM [facility] [place] [id number] 42 [place] 16:00:00 16:00:00 t; Dayo KRUSE M.D. Bellaire ans NORMAN, M.D. 2018-12-02 2018-12-02 Aaron GRIMM [facility] [id number] 563 [place] 13:00:00 13:00:00 t; Family Edward KRUSE i, M.D. [facility] ephraim KRUSE M.D. 2017-08-03 2017-08-03 Aaron GRIMM [facility] [id number] [place] 14:30:00 14:30:00 t; Norah KRUSE i, M.D. [facility] ephraim KRUSE M.D. 2017-06-20 2017-06-20 [facility] [id number] [place] 11:30:00 11:30:00 t; Edward KRUSE i, M.D. ans NORMAN, M.D. 2017-05-21 2017-05-21 Aaron GRIMM [facility] [id number] [place] 15:30:00 15:30:00 t; Edward KRUSE i, M.D. ans NORMAN, M.D. 2017-03-05 2017-03-05 Aaron GRIMM [facility] [id number] [place] 16:00:00 16:00:00 t; Edward KRUSE i, M.D. ans NORMAN, M.D. 2017-01-01 2017-01-01 DAFNE King [facility] [id number] [place] 16:00:00 16:00:00 t; Edward KRUSE i, M.D. ans NORMAN, M.D. 2016-11-03 2016-11-03 Aaron SIRISHA [facility] UTP [id number] UT 14:30:00 14:30:00 t; Edward KRUSE i, M.D. ans NORMAN, M.D. 2016-08-21 2016-08-21 DAFNE King UTP [id number] UT 16:00:00 16:00:00 t; Edward KRUSE i, M.D. ans NORMAN, M.D. Results Test Description Test Time Test Comments Results Result Comments Source COVID-19 (REENA-CoV-2) PCR Asymptomatic 2021-12-15 11:16:43 Test Item Value Reference Range Interpretation Comme nts COVID19 SARS Indication (test Pre-Out of OR Procedure code = 82758) COVID19 SARS Result (test code Not Detected Not Detected = 67414-4) COVID19 SARS Interpretation SARS-CoV-2 NOT Detected. Reference (test code = 21375) Range: Not Detected Methodology: The [employer] RealTime SARS-CoV-2 assay is a qualitative real-time reverse wax engraver polymerase chain reaction (leasing director-PCR) test to detect RNA from SARS-CoV-2 in nasal, nasopharyngeal and oropharyngeal swabs from patients with signs and symptoms of infection who are suspected of COVID-19 by their health care provider. The [employer] RealTime SARS-CoV-2 performed on the StyleTech000 System is a dual target assay with [...] CLIA-certified, high-complexity Molecular Diagnostics Laboratory (MDL) at [facility] under the Food and Drug Administration (FDA) s Emergency Use Authorization. Factsheet for patients: https://www.[facility].org/AbbottFactS heetPatientsFactsheet for healthcare providers: https://www.[facility].org/AbbottFactS heetHCP Test performed by:[facility] [place] [facility] [id number] [place] [address] [facility] (REENA-CoV-2) PCR [id number] 11:16:43 Test Item Value Reference Interpretation Comments Range COVID19 SARS Pre-Out of OR Procedure Indication (test code = 87245) COVID19 SARS Result Not Detected Not Detected (test code = 49283-0) COVID19 SARS SARS-CoV-2 NOT Detected. Interpretation (test Reference Range: Not code = 34485) Detected Methodology: The [employer] RealTime SARS-CoV-2 assay is a qualitative real-time reverse wax engraver polymerase chain reaction (leasing director-PCR) test to detect RNA from SARS-CoV-2 in nasal, nasopharyngeal and oropharyngeal swabs from patients with signs and symptoms of infection who are suspected of COVID-19 by their health care provider. The [employer] RealTime SARS-CoV-2 performed on the [employer]Tech000 System is a dual target assay with [...] CLIA-certified, high-complexity Molecular Diagnostics Laboratory (MDL) at [facility] under the Food and Drug Administration (FDA) s Emergency Use Authorization. Factsheet for patients: https://www.[facility].org/ AbbottFactSheetPatientsFact sheet for healthcare providers: https://www.[facility].org/ AbbottFactSheetHCP Test performed by:[facility] Molecular Diagnostic [id number] [place] [address] [facility] Digital Diagnostic [id number] 20:21:30 Test Item Value Reference Range Interpretation Comments Radiology Study observation (narrative) (test code = 50202-4) IMP (test code = IMP) 1: Calcifications [...] Evaluation Lab Interpretation Abnormal (test code = 15906-8) [facility] Digital Diagnostic [id number] 20:21:30 Test Item Value Reference Range Interpretation Comments Radiology Study observation (narrative) (test code = 13244-2) IMP (test code = IMP) 1: Calcifications [...] Evaluation Lab Interpretation Abnormal (test code = 87831-8) [facility]/Gram Stain 2021-08-23 22:54:42 Test Item Value Reference Range Interpretation Comments Final Report (test Few Actinobaculum A code = 8488) schaalii...Normal site kiara present. Normal kiara consists ofCoryneform Bacteria likeStaphylococcus coagulase negative like andStaphylococcus coagulase negative of a second type. like Path Review (test The results have been A code = 8492) reviewed and electronically signed by Pathologist:Dorothy Bowden MD, PhD #[id number] Gram Stain Report Moderate WBC's seenMany A (test code = 80432-4) Gram Positive CocciMany Gram Variable Sher Lab Interpretation Abnormal (test code = 11746-1) [facility] w/Gram Stain 2021-08-23 22:54:42 Test Item Value Reference Range Interpretation Comments Final Report (test Few Actinobaculum A code = 8488) schaalii...Normal site kiara present. Normal kiara consists ofCoryneform Bacteria likeStaphylococcus coagulase negative like andStaphylococcus coagulase negative of a second type. like Path Review (test The results have been A code = 8492) reviewed and electronically signed by Pathologist:Dorothy Bowden MD, PhD #[id number] Gram Stain Report Moderate WBC's seenMany A (test code = 44637-8) Gram Positive CocciMany Gram Variable Sher Lab Interpretation Abnormal (test code = 28809-2) [facility]opic 2021-08-21 03:45:57 Test Item Value [...] the implementation of new instrumentation in the [facility], allowing greater sensitivity of measurement. Urinalysis results reported by the [facility] using existing instrumentation, as well as Urinalysis testing performed manually or by backup methodology at the [facility] will remain relatively unchanged. New reporting parameters and units will now be reported for all campuses. Lab Interpretation Abnormal (test code = 18594-8) [facility] 2021-08-21 03:45:57 Test Item Value [...] the implementation of new instrumentation in the [facility] [place], allowing greater sensitivity of measurement. Urinalysis results reported by the [facility] using existing instrumentation, as well as Urinalysis testing performed manually or by backup methodology at the [facility] [place] will remain relatively unchanged. New reporting parameters and units will now be reported for all campuses. Lab Interpretation Abnormal (test code = 51992-4) [facility]inal[facility] w/Microscopic if [id number] 03:44:13 Test Item Value Reference Range Interpretation [...] NEG Lab Interpretation (test code = Abnormal 68371-2) [facility]inal[facility] w/Microscopic if [id number] 03:44:13 Test Item Value Reference Range Interpretation [...] NEG Lab Interpretation (test code = Abnormal 47107-4) [facility]COVID-19 (SARS-CoV-2)[id number]-[id number] 02:13:33 Test Item Value Reference Range Interpretation Comments COVID19 Not Detected Not Detected (SARS-CoV-2) (test code = 92595-3) COVID19 SARS Inpatient Indication (test Admission code = 71019) Covid 19 Comment See Note The quin S ARS-CoV-2 (test code = [place] [address]) use on the mary s Brit System [...] sheet for patie nts provided by the torch solderer ([employer]) can be rev iewed at: https://www.fda .gov/m edia/403003/keith nload. A fact sheet fo r Health Care pro viders is provided by the torch solderer ([employer]) and can be reviewed at: https://www.fda .gov/m edia/572394/keith nload Results must be interpreted wit hin [...] high-comple xity tests. The Microbiology Laboratory at [facility], CLIA Accreditation #[id number] and CAP Accreditation #[id number], verif ied the performance characteristics of this assay. Int ernal controls are us ed to monitor all sta ges of the test proces s. [facility]COVID-19 (SARS-CoV-2)Uflwsvubxghp-[id number] 02:13:33 Test Item Value Reference Range Interpretation Comments COVID19 Not Detected Not Detected (SARS-CoV-2) (test code = 50664-4) COVID19 SARS Inpatient Indication (test Admission code = 65725) Covid 19 Comment See Note The quin S ARS-CoV-2 (test code = [place] [address]) use on the mary s Brit System [...] sheet for patie nts provided by the torch solderer ([employer]) can be rev iewed at: https://www.fda .gov/m edia/908002/keith nload. A fact sheet fo r Health Care pro viders is provided by the torch solderer ([employer]) and can be reviewed at: https://www.fda .gov/m edia/733223/keith nload Results must be interpreted wit hin [...] high-comple xity tests. The Microbiology Laboratory at [facility], CLIA Accreditation #[id number] and CAP Accreditation #[id number], verif ied the performance characteristics of this assay. Int ernal controls are us ed to monitor all sta ges of the test proces s. [facility]ieFractionated [id number] 01:25:43 Test Item Value Reference Range Interpretation [...] above 28 g/L. [Automated message] The system [employer] generated this result transmitted ref erence range: [...] par ameters are outside rep ortable range [facility]ieFractionated [id number] 01:25:43 Test Item Value Reference Range Interpretation [...] above 28 g/L. [Automated message] The system [employer] generated this result transmitted ref erence range: [...] par ameters are outside rep ortable range [facility]iePhosphorus [id number] 01:25:41 Test Item Value Reference Range Interpretation Comments Phosphorus (test code = 6817) 3.4 mg/dL 2.5-4.5 [facility]iePhosphorus [id number] 01:25:41 Test Item Value Reference Range Interpretation Comments Phosphorus (test code = 6817) 3.4 mg/dL 2.5-4.5 [facility]ieLDH2022-01-23 01:25:40 Test Item Value Reference Range Interpretation Comments LDH (test code = 6111) 355 U/L 135-214 H Speci men is hemolyzed. Resu lts may be falsely elevated. Repea t test if needed.Resul ts greater than 16 51 U/L may not be reli able due to matrix e ffect with extended dilution as it exceeds the torch solderer s recommended l imit. Caution should be exercised when interpreting glasgow ch values and done in conjunction wit h clinical contex t. Lab Interpretation (test Abnormal code = 69508-0) [facility]achieLDH2022-01-23 01:25:40 Test Item Value Reference Range Interpretation Comments LDH (test code = 6111) 355 U/L 135-214 H Speci men is hemolyzed. Resu lts may be falsely elevated. Repea t test if needed.Resul ts greater than 16 51 U/L may not be reli able due to matrix e ffect with extended dilution as it exceeds the torch solderer s recommended l imit. Caution should be exercised when interpreting glasgow ch values and done in conjunction wit h clinical contex t. Lab Interpretation (test Abnormal code = 22893-3) [facility]ieCalcium [id number] 01:25:38 Test Item Value Reference Range Interpretation Comments Calcium Lvl (test code = 5258) 8.9 mg/dL 8.4-10.2 [facility]ieCalcium [id number] 01:25:38 Test Item Value Reference Range Interpretation Comments Calcium Lvl (test code = 5258) 8.9 mg/dL 8.4-10.2 [facility]ginGlomerular Filtration Rate 2021-08-21 01:25:37 Test Item Value Reference Range Interpretation Comments eGFR-AA (test code 139 See_Comment Normal eG FR: >= 60 = 8062) mL/min/1.73 m2N ote: The eGFR is calculated u sing the CKD-EPI equatio n. The eGFR declines with a ge. eGFR <60 mL/min/1.73 m2 is considered as "decreased". This equation should only be used for patients 18 and older. According to e National Kidney Foundati on's Kidney Disease [...] GFR 1 5-295 Kidney failure <15 [Au Applied BioCodeated message] The sy stem which generated this result transmitted ref erence range: >=60 mL/min/1.7 3 sq. m. The reference range was not used to interpret th is result as normal/abnormal . eGFR-CHELSEA (test code 120 See_Comment Normal e GFR: >= 60 = 8063) mL/min/1.73 m2N ote: The eGFR is calculated u sing the CKD-EPI equatio n. The eGFR declines with a ge. eGFR <60 mL/min/1.73 m2 is considered as "decreased". This equation should only be used for patients 18 and older. According to e National Kidney Foundati on's Kidney Disease [...] interpret th is result as normal/abnormal . [facility]ieGlomerular Filtration Rate 2021-08-21 01:25:37 Test Item Value [...] interpret th is result as normal/abnormal . eGFR-CHELSEA (test [...] interpret th is result as normal/abnormal . [facility]ieAlbumin [id number] 01:25:36 Test Item Value Reference Range Interpretation Comments Albumin Lvl (test code 4.0 See_Comment [Aut omated message] The = 1423) system which ge nerated this result tra nsmitted reference range : 3.5 - 5.2 gm/dL. The refe rence range was not used to interpret this result as normal/abnormal . [facility]achieAlbumin [id number] 01:25:36 Test Item Value Reference Range Interpretation Comments Albumin Lvl (test code 4.0 See_Comment [Aut omated message] The = 4705) system which ge nerated this result tra nsmitted reference range : 3.5 - 5.2 gm/dL. The refe rence range was not used to interpret this result as normal/abnormal . [facility]ieTotal [id number] 01:25:35 Test Item Value Reference Range Interpretation Comments Total Protein (test code = 7649) 7.4 g/dL 6.4-8.3 [facility]ieTotal [id number] 01:25:35 Test Item Value Reference Range Interpretation Comments Total Protein (test code = 7649) 7.4 g/dL 6.4-8.3 [facility]ieAspartate Aminotransferase 2021-08-21 01:25:34 Test Item Value Reference Range Interpretation Comments AST (test code = 27 U/L See_Comment Specimen is hemolyzed. 2841) Results may be falsely elevated. Repea t test if needed. [Automa alexys message] The system [employer] Technologies[employer] h generated this result tra nsmitted reference range : <=32. The reference range was not used to interpr et this result as sara l/abnormal. [facility]ieAspartate Aminotransferase 2021-08-21 01:25:34 Test Item Value Reference Range Interpretation Comments AST (test code = 27 U/L See_Comment Specimen is hemolyzed. 9151) Results may be falsely elevated. Repea t test if needed. [Automa alexys message] The system [employer] generated this result tra nsmitted reference range : <=32. The reference range was not used to interpr et this result as sara l/abnormal. [facility]ieMagnesium [id number] 01:25:33 Test Item Value Reference Range Interpretation Comments Magnesium (test code = 6359) 1.7 mg/dL 1.6-2.6 [facility]ieMagnesium [id number] 01:25:33 Test Item Value Reference Range Interpretation Comments Magnesium (test code = 6359) 1.7 mg/dL 1.6-2.6 [facility]achieElectrolyte [id number] 01:25:32 Test Item Value Reference Range Interpretation Comments Sodium Lvl (test code = 128 See_Comment L [Au tomated message] 0243) The system [employer] generated this result transmitted ref erence range: 136 - 14 5 mEq/L. The refe rence range was not u sed to interpret this result as normal/abnor mal. Potassium Lvl (test code 4.2 See_Comment Spe cimen is = 6854) hemolyzed. Resu lts may be falsely elevated. Repea t test if needed. [Aut omated message] The sy stem which generated this result transmit alexys reference range : 3.5 - 5.1 mEq/L. Th e reference range was not used to int erpret this result as normal/abnormal . Chloride (test code = 91 See_Comment L [Auto mated message] 0939) The system [employer] generated this result transmitted ref erence range: 98 - 107 mEq/L. The refe rence range was not u sed to interpret this result as normal/abnor mal. CO2 (test code = 5227) 19 See_Comment L [Aut omated message] The system [employer] generated this result transmitted ref erence range: 22 - 29 mEq/L. The reference r victorino was not used to interpret this result as normal/abnor mal. Anion Gap (test code = 18 See_Comment H [Aut omated message] 9325) The system [employer] generated this result transmitted ref erence range: 4 - 14 m Eq/L. The reference r victorino was not used to interpret this result as normal/abnor mal. Lab Interpretation (test Abnormal code = 67791-1) [facility]achieElectrolyte [id number] 01:25:32 Test Item Value Reference Range Interpretation Comments Sodium Lvl (test code = 128 See_Comment L [Au tomated message] 4898) The system [employer] generated this result transmitted ref erence range: 136 - 14 5 mEq/L. The refe rence range was not u sed to interpret this result as normal/abnor mal. Potassium Lvl (test code 4.2 See_Comment Spe cimen is = 2259) hemolyzed. Resu lts may be falsely elevated. Repea t test if needed. [Aut omated message] The sy stem which generated this result transmit alexys reference range : 3.5 - 5.1 mEq/L. Th e reference range was not used to int erpret this result as normal/abnormal . Chloride (test code = 91 See_Comment L [Auto mated message] 8888) The system [employer] generated this result transmitted ref erence range: 98 - 107 mEq/L. The refe rence range was not u sed to interpret this result as normal/abnor mal. CO2 (test code = 5227) 19 See_Comment L [Aut omated message] The system [employer] generated this result transmitted ref erence range: 22 - 29 mEq/L. The reference r victorino was not used to interpret this result as normal/abnor mal. Anion Gap (test code = 18 See_Comment H [Aut omated message] 1588) The system [employer] generated this result transmitted ref erence range: 4 - 14 m Eq/L. The reference r victorino was not used to interpret this result as normal/abnor mal. Lab Interpretation (test Abnormal code = 76133-2) [facility]ieAlkaline [id number] 01:25:31 Test Item Value Reference Range Interpretation Comments Alk Phos (test code = 4768) 91 U/L 35-104 [facility]ieAlkaline [id number] 01:25:31 Test Item Value Reference Range Interpretation Comments Alk Phos (test code = 4768) 91 U/L 35-104 [facility]achieGlucose [id number] 01:25:30 Test Item Value Reference Range Interpretation Comments Glucose Level (test 96 mg/dL 70-99 Effectiv e 02/23/16, the code = 5699) glucose referen ce intervals have been updated based o n [place] [employer] yaima delines (Standards of edical Care in Diabete s 2016. Diabetes Care 2 016; 39: S13-S22).Fastin g blood glucose:Normal: 70-99 mg/dLImpaired f asting glucose (increa sed risk for diabetes or pre-diabetes): 100-125 mg/dLDiabetes m ellitus: >/=126 mg/dL Ra ndom blood glucose:N ormal: 70-199 mg/dLNot e: Random glucose >100 mg /dL is associated with increased risk for diabetes [facility]ieGlucose [id number] 01:25:30 Test Item Value Reference Range Interpretation Comments Glucose Level (test 96 mg/dL 70-99 Effectiv e 02/23/16, the code = 5699) glucose referen ce intervals have been updated based o n [place] [employer] yaima delines (Standards of edical Care in Diabete s 2016. Diabetes Care 2 016; 39: S13-S22).Fastin g blood glucose:Normal: 70-99 mg/dLImpaired f asting glucose (increa sed risk for diabetes or pre-diabetes): 100-125 mg/dLDiabetes m ellitus: >/=126 mg/dL Ra ndom blood glucose:N ormal: 70-199 mg/dLNot e: Random glucose >100 mg /dL is associated with increased risk for diabetes [facility]ieALT2022-01-23 01:25:29 Test Item Value Reference Range Interpretation Comments ALT (test code = 22 U/L See_Comment [Automated message] The 6941) system which ge nerated this result transmit alexys reference range : <=33. The reference range was not used to interpr et this result as sara l/abnormal. [place] [id number] 01:25:29 Test Item Value Reference Range Interpretation Comments ALT (test code = 22 U/L See_Comment [Automated message] The 4709) system which ge nerated this result transmit alexys reference range : <=33. The reference range was not used to interpr et this result as sara l/abnormal. [facility].Serum Auommghnsq6245-31-07 01:25:28 Test Item Value Reference Range Interpretation Comments Creatinine (test code = 5399) 0.39 mg/dL 0.51-0.95 L Lab Interpretation (test code = Abnormal 82148-3) [facility].Serum [id number] 01:25:28 Test Item Value Reference Range Interpretation Comments Creatinine (test code = 5399) 0.39 mg/dL 0.51-0.95 L Lab Interpretation (test code = Abnormal 86130-9) [facility]ieBUN2022-01-23 01:25:27 Test Item Value Reference Range Interpretation Comments BUN (test code = 5055) 6-23 L Lab Interpretation (test code = Abnormal 79121-3) [facility]ieBUN2022-01-23 01:25:27 Test Item Value Reference Range Interpretation Comments BUN (test code = 5055) 6-23 L Lab Interpretation (test code = Abnormal 98003-0) [facility]achieLipase2022-01-23 01:23:09 Test Item Value Reference Range Interpretation Comments Lipase Lvl (test code = 6165) 24 U/L 13-60 [facility] W[facility]achieLipase2022-01-23 01:23:09 Test Item Value Reference Range Interpretation Comments Lipase Lvl (test code = 6165) 24 U/L 13-60 [facility]achieAmylase2022-01-23 01:23:08 Test Item Value Reference Range Interpretation Comments Amylase Lvl (test code = 4806) 19 U/L 28-100 L Lab Interpretation (test code = Abnormal 00451-2) [facility]ieAmylase2022-01-23 01:23:08 Test Item Value Reference Range Interpretation Comments Amylase Lvl (test code = 4806) 19 U/L 28-100 L Lab Interpretation (test code = Abnormal 88921-1) [facility]achieDifferential2022-01-23 01:04:58 Test Item Value Reference Range Interpretation [...] H Lab Interpretation (test Abnormal code = 96466-9) [facility]ieDifferential2022-01-23 01:04:58 Test Item Value Reference Range Interpretation [...] H Lab Interpretation (test Abnormal code = 01247-4) [facility].[id number] 01:04:56 Test Item Value Reference Range Interpretation Comments WBC (test code = 8034) 12.6 K/uL 4.0-11.0 H RBC (test code = 6932) 4.48 See_Comment [Aut omated message] The system [employer] generated this result transmitted ref erence range: 4.00 - 5 .50 M/uL. The refer ence range was not u sed to interpret this result as normal/abnor mal. Hgb (test code = 5898) 13.1 See_Comment [Aut omated message] The system [employer] generated this result transmitted ref erence range: 12.0 - 1 6.0 gm/dL. The refe rence range was not u sed to interpret this result as normal/abnor mal. Hct (test code = 5860) 40.6 % 37.0-47.0 MCV (test code = 6222) 91 fL 82-98 MCH (test code = 6220) 29.2 pg 27.0-31.0 MCHC (test code = 6221) 32.3 See_Comment [Au tomated message] The system [employer] generated this result transmitted ref erence range: [...] cell differential. [Automated mess age] The system [employer] generated this result transmitted ref erence range: <=0.0. T he reference range was not used to int erpret this result as normal/abnormal . Lab Interpretation Abnormal (test code = 78480-1) [facility].[id number] 01:04:56 Test Item Value Reference Range Interpretation Comments WBC (test code = 8034) 12.6 K/uL 4.0-11.0 H RBC (test code = 6932) 4.48 See_Comment [Aut omated message] The system [employer] generated this result transmitted ref erence range: 4.00 - 5 .50 M/uL. The refer ence range was not u sed to interpret this result as normal/abnor mal. Hgb (test code = 5898) 13.1 See_Comment [Aut omated message] The system [employer] generated this result transmitted ref erence range: 12.0 - 1 6.0 gm/dL. The refe rence range was not u sed to interpret this result as normal/abnor mal. Hct (test code = 5860) 40.6 % 37.0-47.0 MCV (test code = 6222) 91 fL 82-98 MCH (test code = 6220) 29.2 pg 27.0-31.0 MCHC (test code = 6221) 32.3 See_Comment [Au tomated message] The system [employer] generated this result transmitted ref erence range: [...] cell differential. [Automated mess age] The system [employer] generated this result transmitted ref erence range: <=0.0. T he reference range was not used to int erpret this result as normal/abnormal . Lab Interpretation Abnormal (test code = 65710-0) [facility]ginUrine Drug Screen STAT, Qualitative, Without [id number] 20:20:27 Test Item Value Reference Range Interpretation [...] alco hol 20 ng/mL Performin g Site: [facility], [facility], [address] [place], [address]. Lab Interpretation (test Abnormal code = 91773-6) [facility]ieUrine Drug Screen STAT, Qualitative, Without [id number] 20:20:27 Test Item Value Reference Range Interpretation [...] alco hol 20 ng/mL Performin g Site: [facility], [facility], [address], [place], [address]. Lab Interpretation (test Abnormal code = 95031-3) [facility]achieTMP Interpretation Antibody Screen [id number] 15:00:42 Test Item Value Reference Range Interpretation Comments TMP Auto Neg At the present ABSC Interp time, patient (test code = plasma shows no ____ANGELA LANDRY MD 2780) evidence of RBC - [id number] alexys by: alloantibodiMD Evan Wilcox [id number] D ate/Time: 08.14.2021 9:00 AM LICENSE DISTRIBUTOR Transcribed Roger e/Time: 08.14.2021 9:00 AM CSTElectronical ly Signed [place]: [place] [id number] on 07.30 9:00 AM C [facility] W[facility]achieTMP Interpretation Antibody Screen [id number] 15:00:42 Test Item Value Reference Range Interpretation Comments TMP Auto Neg At the present ABSC Interp time, patient (test code = plasma shows no ____ANGELA LANDRY MD 7535) evidence of RBC - [id number] alexys by: alloantibodies. MD Evan RAINEY [id number] D ate/Time: 08.14.2021 9:00 AM LICENSE DISTRIBUTOR Transcribed Roger e/Time: 08.14.2021 9:00 AM CSTElectronical ly Signed [place]: [place] [id number] on 07.30 9:00 AM C [facility]ieConfirm [id number] 05:56:03 Test Item Value Reference Range Interpretation Comments ABORh Confirm. (test code = 882-1) A POS [facility]ieConfirm [id number] 05:56:03 Test Item Value Reference Range Interpretation Comments ABORh Confirm. (test code = 882-1) A POS [facility]ieAntibody [id number] 04:48:36 Test Item Value Reference Range Interpretation Comments ABSC. (test code = 890-4) Negative ABSC [facility]ieAntibody [id number] 04:48:36 Test Item Value Reference Range Interpretation Comments ABSC. (test code = 890-4) Negative ABSC [facility]ieABORh2022-01-16 04:48:35 Test Item Value Reference Range Interpretation Comments ABORh. (test code = 882-1) A POS [facility]ieABORh2022-01-16 04:48:35 Test Item Value Reference Range Interpretation Comments ABORh. (test code = 882-1) A POS [facility] W[facility]achieClot Expiration [id number] 04:48:34 Test Item Value Reference Range Interpretation Comments T & S Expiration (test code = 08/16/2021 5318) [facility] WaxahachieClot Expiration [id number] 04:48:34 Test Item Value Reference Range Interpretation Comments T & S Expiration (test code = 08/16/20215317) [facility] W[facility]achieaPTT2022-01-16 03:40:30 Test Item Value Reference Range Interpretation Comments aPTT (test code = 32.8 See_Comment [Automate d message] The 6773) system which ge nerated this result transmit alexys reference range : 24.7 - 36.8 second(s). The reference range was not used to interpr et this result as sara l/abnormal. [facility] W[facility]ieaPTT2022-01-16 03:40:30 Test Item Value Reference Range Interpretation Comments aPTT (test code = 32.8 See_Comment [Automate d message] The 6773) system which ge nerated this result transmit alexys reference range : 24.7 - 36.8 second(s). The reference range was not used to interpr et this result as sara l/abnormal. [facility] W[facility]ahachieProthrombin Time with [id number] 03:40:29 Test Item Value Reference Range Interpretation Comments PT (test code = 6746) 13.1 See_Comment [Auto mated message] The system which ge nerated this result transmit alexys reference range : 11.5 - 13.9 second(s). The reference range was not used to interpr et this result as sara l/abnormal. INR (test code = 1.08 0.90-1.10 5973) [facility]throm[facility] Time with [id number] 03:40:29 Test Item Value Reference Range Interpretation Comments PT (test code = 6746) 13.1 See_Comment [Auto mated message] The system which ge nerated this result transmit alexys reference range : 11.5 - 13.9 second(s). The reference range was not used to interpr et this result as sara l/abnormal. INR (test code = 1.08 0.90-1.10 5973) [place] [id number] 03:39:35 Test Item Value Reference Range Interpretation Comments TSH (test code = 0.62 See_Comment [Automated message] The 7578) system which ge nerated this result transmit alexys reference range : 0.27 - 4.20 mcunit/mL. The reference range was not used to interpr et this result as sara l/abnormal. [place] [id number] 03:39:35 Test Item Value Reference Range Interpretation Comments TSH (test code = 0.62 See_Comment [Automated message] The 7578) system which ge nerated this result transmit alexys reference range : 0.27 - 4.20 mcunit/mL. The reference range was not used to interpr et this result as sara l/abnormal. [facility] [id number] 03:39:32 Test Item Value Reference Range Interpretation Comments Uric Acid (test code = 7955) 4.9 mg/dL 2.4-5.7 [facility] [id number] 03:39:32 Test Item Value Reference Range Interpretation Comments Uric Acid (test code = 7955) 4.9 mg/dL 2.4-5.7 [facility]ie[facility]mon[facility] [id number] 03:39:03 Test Item Value Reference Range Interpretation Comments Ammonia (test code = 29 See_Comment [Autom ated message] The 4799) system which ge nerated this result tra nsmitted reference range : 11 - 51 mcmol/L. The re ference range was not u sed to interpret this result as normal/abnormal . [id number] 03:39:03 Test Item Value Reference Range Interpretation Comments Ammonia (test code = 29 See_Comment [Autom ated message] The 4799) system which ge nerated this result tra nsmitted reference range : 11 - 51 mcmol/L. The re ference range was not u sed to interpret this result as normal/abnormal . [facility]ie[facility]emoglobin [id number] 03:14:58 A1C<4.34.3 - 5.6 %[facility]ENTERUnRolling [facility] HospitalHemoglobin [id number] 03:14:58A1C<4.34.3 - 5.6 %[facility] CENTERUnRolling [facility][U] XRAY CHEST- AP AND LAT. AND APICAL LORDOTIC VWS [id number] 14:47:00 Test Item Value Reference Range Interpretation [...] neck. 12/02/2018 3:52 PM CDT Natan Ritter [facility]] BASIC METABOLIC PANEL [id number] 17:15:01 Test Item Value Reference Range Interpretation Comments Glucose Lvl (test 102 mg/dl 70-99 Adult refe rence range code = Glucose values reflec t the Lvl) clinical guidel inesof the [place] [employer] es [employer]. Blood Urea 11 mg/dl [...] be multiplied by t he estimated BMI. [facility]] [id number] 17:15:01 Test Item Value Reference Range Interpretation Comments Ferritin Lvl (test code = Ferritin 40 ng/ml 5-204 Lvl) [facility]] HEPATIC FUNCTION [id number] 17:15:01 Test Item Value Reference Range Interpretation Comments Total Protein (test code = 44328-0) 8.1 g/dl 6.4-8.4 Albumin Lvl (test code = 1751-7) 4.1 g/dl 3.5-5.0 Bili Total (test code = 41748-3) 0.3 mg/dl 0.2-1.3 Bilirubin Indirect (test code = 0.2 mg/dl 0.0-1.0 34243-1) Alk Phos (test code = 1783-0) 104 u/l 39-136 AST (test code = 1916-6) 31 u/l 0-37 ALT (test code = 1742-6) 46 u/l 0-65 Globulin (test code = Globulin) 4.0 g/dl 2.7-4.2 A/G Ratio (test code = A/G Ratio) 1.0 0.7-1.6 [facility]] LIPID [id number] 17:15:01 Test Item Value Reference Range Interpretation Comments Chol (test code = Chol) 214 mg/dl <=199 Trig; Above High Threshold (test 374 mg/dl <=149 code = 2571-8) HDL Cholesterol (test code = HDL 70 mg/dl >=61 Cholesterol) CHD Risk (test code = CHD Risk) 3.06 3.90-5.80 LDL (test code = LDL) 69 mg/dl <=99 VLDL (test code = VLDL) 75 [facility]] THYROID [id number] 17:15:01 Test Item Value Reference Range Interpretation Comments TSH (test code = 45203-8) 1.920 {uIU/ml} 0.360-3.740 T3 Uptake (test code = T3 29 % 31-39 Uptake) Thyroxine (test code = 8.6 ug/dL 4.7-13.3 Thyroxine) [facility][] Free Thyroxine [id number] 17:15:01 Test Item Value Reference Range Interpretation Comments Free Thyroxine Index (test code = Free 2.5 Thyroxine Index) [facility]] URINALYSIS, [id number] 17:15:01 Test Item Value Reference Range Interpretation Comments UA Turbidity (test code = 92728-5) Clear Clear UA Spec Grav (test code = 2965-2) 1.016 <=1.030 UA pH (test code = 2756-5) 7.0 5.0-8.0 UA Protein (test code = 72276-1) Negative Negative UA Glucose (test code = 2349-9) Negative Negative UA Ketones (test code = 70923-2) Negative Negative UA Bili (test code = 60624-5) Negative Negative UA Blood (test code = 798-9) Negative Negative UROBILINOGEN; Above High Threshold 4.0 mg/dl 0.1-1.0 (test code = 72887-4) UA Nitrite; Abnormal (test code = Positive Negative A 06697-0) UA Leuk Est (test code = 15082-9) Negative Negative UA RBC (test code = 86995-1) 1 {/HPF} 0-2 UA WBC (test code = 83629-8) 2 {/HPF} 0-5 UA Bacteria (test code = 630-4) Occasional None Seen UA Sq Epi (test code = 40781-2) Occasional Few UA Color (test code = 34063-1) [place] [facility]] CBC (INCLUDES DIFF/PLT)2017-08-03 17:15:01 Test Item Value Reference Range Interpretation Comments WBC (test code = WBC) 14.1 {K/CMM} 3.7-10.4 RBC (test code = RBC) 3.98 {M/CMM} 4.20-5.40 Hgb (test code = 30404-1) 12.2 g/dl 12.0-16.0 Hct (test code = 4544-3) 37.4 % 36.0-48.0 MCV (test code = MCV) 94.0 fL 80.0-98.0 MCH (test code = MCH) 30.8 pg 27.0-31.0 MCHC (test code = MCHC) 32.8 g/dl 32.0-36.0 RDW (test code = RDW) 17.2 % 11.5-14.5 Platelet (test code = 777-3) 282 {K/CMM} 133-450 Mean Platelet Volume (test code 7.6 fL 7.4-10.4 = Mean Platelet Volume) [facility]] [id number] 17:15:01 Test Item Value Reference Range Interpretation Comments Segmented Neutrophils (test code 63.0 % 45.0-75.0 = 90407-6) Monocytes #; Above High Threshold 1.3 {K/CMM} 0.0-0.8 (test code = 60429-0) Lymphocytes (test code = 26.2 % 20.0-40.0 Lymphocytes) Eosinophils # (test code = 0.2 {K/CMM} 0.0-0.5 23751-0) Basophils # (test code = 53343-8) 0.1 {K/CMM} 0.0-0.2 Segs-Bands #; Above High 8.9 {K/CMM} 1.5-8.1 Threshold (test code = 44887-1) Lymphocytes # (test code = 3.7 {K/CMM} 1.0-5.5 78865-8) RBC Morphology (test code = RBC Normal Morphology) Plt Morphology (test code = Plt Normal Morphology) [facility]] HEMOGLOBIN [id number] 17:15:01 Test Item Value Reference Range Interpretation Comments Hemoglobin A1c (test code = 4548-4) 4.1 % <=5.6 [facility]] VITAMIN D, 25-HYDROXY, LC/[id number] 17:15:01 Test Item Value Reference Range Interpretation Comments Vitamin D, 25-OH, 33.4 ng/ml 30.0-100.0 Reference range is based Total (test code on recommen dations in the = Vitamin D, EndocrineSociet y Clinical 25-OH, Total) Practice Guide line (J Clin Endocrinol Tegcc0824;96:19 11-1930) [facility][H] Protein [id number] 17:15:01 Test Item Value Reference Interpretation Comments [...] Globulin 0.79 g/dl 0.45-1.00 (test code = 30413-1) Beta Globulin (test 1.05 g/dl 0.50-1.15 code [...] d concur with joseph pinto's interpretation. CPT 02401-TANheayrr anita Signature José Miguel Maharaj MD 08/07 3:33 PM [facility]
--- NOTE | 2022-08-03 20:57 | RAD REPORT ---
EXAM DESCRIPTION: RAD - Chest Single View - 08/03/2022 8:48 pm CLINICAL HISTORY: facial swelling Chest pain. COMPARISON: Chest Single View dated 12/29/2017; Chest Single View dated 09/29/2016; Chest Single View da alexys 04/21/2016; Chest Single View dated 04/13/2016 FINDINGS: Portable technique limits examination quality. The lungs are grossly clear. The heart is mildly enlarged in size. No displaced fractures. IMPRESSION: No acute intrathoracic process suspected.
[2022-08-03] MEDS ORDERED: MORPHINE 4 MG/ML SYR ONE (21:43)
[2022-08-03] MEDS ORDERED: CLINDAMYCIN 900MG/D5W 900 MG/50 ML IVPB IV ONE (21:43)
[2022-08-03] MEDS ORDERED: ONDANSETRON 4 MG/2 ML VIAL ONE (21:43)
[2022-08-03 21:53] LABS: Absolute Lymphocytes (CBC) 2.9 K/uL (0.7-4.9); Hematocrit 36.6 % (36.0-45.0); Lymphocytes % 22.2 % (15.3-44.8); MCV 84.4 fL (80-100); MPV 8.3 fL (7.6-11.3); RBC Red Blood Cell Count 4.34 M/uL (3.86-4.86)
[2022-08-03 21:58] LABS: Protime INR 0.95
[2022-08-03 22:04] LABS: Magnesium 2.1 mg/dL (1.6-2.4); Potassium 3.9 mmol/L (3.5-5.1)
[2022-08-03 22:12] LABS: SARS-CoV-2 Antigen Rapid Res Negative (Negative)
[2022-08-03] MEDS ORDERED: NA CHLORIDE 0.9% 1,000 ML ONE (22:41)
--- NOTE | 2022-08-03 22:48 | RAD REPORT ---
EXAM DESCRIPTION: CT - Soft Tissue Neck W/Contr CLINICAL HISTORY: left side facial and neck swelling Pain and swelling. COMPARISON: No comparisons TECHNIQUE All CT scans are performed using dose optimization technique as appropriate and may includ e automated exposure control or mA/KV adjustment according to patient size. FINDINGS: There is a large amount of soft tissue swelling and inflammatory phlegmon seen along the l eft aspect of the face. This appears adjacent to the left aspect of the mandible. Inflammatory change s extend inferiorly along the left aspect of the neck. Multiple enlarged lymph nodes are seen in the left submandibular left submental location. This left-sided perimandibular inflammation may be related to multiple periapical abscesses involving the left mandibular molars, largest measuring 11 mm. Multiple dental erosions and dental caries are also present. No drainable abscess collection seen. IMPRESSION: Significant inflammatory fat stranding and phlegmonous material is seen along the left s serge of the face left perimandibular region. This is likely odontogenic in origin. No well-formed drainable abscess seen. Enlarged reactive left-sided lymphadenopathy is present.
--- NOTE | 2022-08-03 23:08 | ER ---
Nurse's Notes [facility] Name: Lianne Medina Age: 52 yrs Sex: Female : 1970 Arrival Date: 08/03/2022 Time: 19:37 Bed 15 Private MD: Diagnosis: Cellulitis of face;Other diseases of pulp and periapical tissues Presentation: 08/03 19:54 Chief complaint: Patient states: "I dont know if this abscess is dental anymore. It is tw5 traveling up to my eye and down my jawline. It feels like my jaw is going to explode.". Coronavirus screen: Vaccine status: Patient reports being unvaccinated. Ebola Screen: Patient negative for fever greater than or equal to 101.5 degrees Fahrenheit, and additional compatible Ebola Virus Disease symptoms Patient denies exposure to infectious person. Patient denies travel to an Ebola-affected area in the 21 days before illness onset. Initial Sepsis Screen: Does the patient meet any 2 criteria? No. Patient's initial sepsis screen is negative. Does the patient have a suspected source of infection? No. Patient's initial sepsis screen is negative. Risk Assessment: Do you want to hurt yourself or someone else? Patient reports no desire to harm self or others. Onset of symptoms is unknown. 19:54 Method Of Arrival: Ambulatory tw 19:54 Acuity: BRANDEN 3 tw5 Triage Assessment: 19:59 General: Appears uncomfortable, Behavior is cooperative, appropriate for age. Pain: tw5 Pain currently is 8 out of 10 on a pain scale. 19:59 Derm: Abscess located on left cheek and left jaw. 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:59 LMP N/A - Post-menopause tw Historical: - Allergies: 19:56 Celecoxib; tw 19:56 cyclobenzaprine HCl; tw 19:56 CYCLOSPORINE; tw 19:56 divalproex; tw 19:56 Fentanyl; tw 19:56 tramadol; tw 19:56 TETRACYCLINES; tw 19:56 Sulfa (Sulfonamide Antibiotics); tw 19:56 PENICILLINS; tw 19:56 Lorazepam; tw 19:56 Metoclopramide; tw 19:56 Tizanidine; tw 20:01 levetiracetam; tw5 - Home Meds: 08/04 11:19 Bentyl 10 mg Oral cap 1 cap 4 times per day [Active]; hydrocodone-acetaminophen 5-300 ss mg Oral tab 2 tabs every 4 hours [Active]; Klonopin 1 mg Oral tab four times a day [Active]; Nexium 40 mg Oral cpDR 2 times per day [Active]; phenazopyridine 100 mg Oral tab every 4 hours [Active]; potassium chloride 20 mEq Oral TbER 3 tab once daily [Active]; promethazine 25 mg Oral tab 1 tab every 6 hours [Active]; Soma 350 mg Oral tab 1.5 tab four times a day [Active]; - PMHx: 08/03 20:01 brain tumor x 5; Hernia; Multiple Sclerosis; Cancer; prolapsed bladder; tw5 - Immunization history:: Flu vaccine is not up to date. - Social history:: Smoking status: Patient reports the use of cigarette tobacco products, smokes two packs cigarettes per day. Assessment: 21:03 Reassessment: pt brought back to ER room. mb9 21:25 General: Appears in no apparent distress. comfortable, Behavior is calm, cooperative, mb9 appropriate for age. Pain: Complains of pain in face Pain radiates to left jaw and left cheek Pain currently is 10 out of 10 on a pain scale. Quality of pain is described as throbbing. Neuro: Benites Agitation-Sedation Scale (RASS): 0 - Alert and Calm Level of Consciousness is awake, alert, obeys commands, Oriented to person, place, time, situation, Appropriate for age. 21:25 Cardiovascular: Heart tones S1 S2 present Rhythm is regular. Respiratory: Airway is mb9 patent Respiratory effort is even, unlabored, Respiratory pattern is regular, symmetrical, Breath sounds are clear bilaterally. GI: Abdomen is round non-distended, Bowel sounds present X 4 quads. Abd is soft and non tender X 4 quads. : No signs and/or symptoms were reported regarding the genitourinary system. EENT: Oral mucosa is dry. Poor dentition noted. Lesions noted. swelling noted on the left side of face and jaw. Derm: Skin is pink, warm \\T\\ dry. Musculoskeletal: Capillary refill is > 3 seconds, Range of motion: intact in all extremities. 21:30 Reassessment: first set of blood cultures sent. mb9 21:45 Reassessment: second set of blood cultures sent. mb9 22:19 Reassessment: pt taken to CT via wheelchair. mb9 23:00 Reassessment: Patient states feeling better. Patient states symptoms have improved. mb9 Neuro: Level of Consciousness is awake, alert, obeys commands, Oriented to person, place, time, situation, Appropriate for age. Respiratory: Airway is patent Respiratory effort is even, unlabored, Respiratory pattern is regular, symmetrical. Derm: Skin is pink, warm \\T\\ dry. 08/04 00:17 Reassessment: Patient appears in no apparent distress at this time. Patient is alert, aa9 oriented x 3, equal unlabored respirations, skin warm/dry/pink. Neuro: Level of Consciousness is awake, alert, obeys commands, Oriented to person, place, time, situation, Appropriate for age. Vital Signs: 08/03 19:54 BP 140 / 74; Pulse 77; Resp 18; Temp 98.5; Pulse Ox 92% on R/A; Weight 92.53 kg; Height tw5 5 ft. 0 in. (152.40 cm); Pain 8/10; 22:04 BP 133 / 87; Pulse 73; Resp 15; Pulse Ox 92% on R/A; Pain 10/10; mb9 22:20 BP 104 / 48; Pulse 86; Resp 18; Pulse Ox 97% on 3 lpm NC; mb9 23:25 BP 136 / 99; Pulse 72; Resp 14; Pulse Ox 94% on R/A; Pain 5/10; mb9 19:54 Body Mass Index 39.84 (92.53 kg, 152.40 cm) tw5 ED Course: 19:37 Patient arrived in ED. jj6 19:55 Phani Oconnor PA is PHCP. cp 19:55 Eufemia Nieves MD is Attending Physician. cp 19:56 Triage completed. tw5 19:59 Arm band placed on. tw5 20:07 Patient notified of wait time. tw5 20:48 XRAY Chest (1 view) In Process Unspecified. EDMS 21:02 Barb Kirkland, VIAT is Primary Nurse. mb9 21:18 EKG done, by ED staff, reviewed by Phani GUERRERO. mb9 21:25 Inserted saline lock: 20 gauge in right forearm, using aseptic technique. Blood mb9 collected. 21:38 SARS RAPID Sent. mb9 21:38 Basic Metabolic Panel Sent. mb9 21:38 PT-INR Sent. mb9 21:38 Magnesium Sent. mb9 21:38 CBC with Diff Sent. mb9 21:50 SARS RAPID Sent. mb9 21:50 Blood Culture Adult (2) Sent. mb9 21:51 Procalcitonin Sent. mb9 22:35 CT Soft Tissue Neck W/contr In Process Unspecified. EDTN 08/04 00:30 Alejandro Campa MD is Hospitalizing Provider. cp 04:58 Inserted saline lock: 22 gauge in right hand, using aseptic technique. tw5 Administered Medications: 08/03 20:40 Drug: Zofran (Ondansetron) 4 mg Route: IVP; Site: right forearm; mb9 22:04 Follow up: Response: No adverse reaction mb9 20:45 Drug: morphine 4 mg Route: IVP; Infused Over: 4 mins; Site: right forearm; mb9 22:04 Follow up: Response: No adverse reaction mb9 21:50 Drug: Clindamycin 900 mg Route: IVPB; Infused Over: 30 mins; Site: right forearm; mb9 22:42 Drug: NS 0.9% 500 ml Route: IV; Rate: bolus; Site: right forearm; mb9 23:28 Follow up: Response: No adverse reaction; IV Status: Completed infusion mb9 22:42 Drug: NS 0.9% 500 ml Route: IV; Rate: 100 ml/hr; Site: right forearm; mb9 08/04 00:00 Drug: morphine 4 mg Route: IVP; Infused Over: 4 mins; Site: right forearm; aa9 00:14 Drug: metroNIDAZOLE 500 mg Volume: 100 ml; Route: IVPB; Infused Over: 30 mins; Site: aa9 right forearm; Outcome: 08/03 23:07 ER care complete, transfer ordered by MD. cp 08/04 00:31 Decision to Hospitalize by Provider. cp 18:02 Patient left the ED. bp Signatures: Dispatcher [employer] EDTN Gloria Sarabia RN RN Phani Clark PA PA cp Scar Singh RN RN Pattie Chinchilla tw5 Janey [id number] Chelsy Thomas RN RN [id number] Barb Kirkland RN RN mb9 Corrections: (The following items were deleted from the chart) 08/03 19:58 19:56 Allergies: ACETAMINOPHEN; 19:58 19:56 Allergies: Oxycodone HCl; 19:58 19:56 Allergies: NSAIDS (Non-Steroidal Anti-Inflammatory Drug); tw 22:25 22:21 Reassessment: mb9 mb9 23:17 22:22 Reassessment: Dr Nieves and charge nurse, Estefany, notified about slight decrease mb9 in pts BP. Map remains greater than 65, respirations are even and unlabored, rhythm is regular, and pt is AAOx4. Skin is warm, dry, and intact. Reassessment: Dr Nieves and charge nurse, Estefany, notified about slight decrease in pts BP. Map remains greater than 65, respirations are even and unlabored, rhythm is regular, and pt is AAOx4. Skin is warm, dry, and intact. mb9
--- NOTE | 2022-08-03 23:08 | EDPHYS ---
Physician Documentation [facility] Name: Lianne Medina Age: 52 yrs Sex: Female : 1970 Arrival Date: 08/03/2022 Time: 19:37 Bed 15 Private MD: ED Physician Eufemia Nieves HPI: 08/03 21:00 This 52 yrs old Female presents to ER via Ambulatory with complaints of Abscess. cp 21:00 Description: swollen. cp 21:00 Onset: The symptoms/episode began/occurred this morning, and became worse today. cp Possible cause(s): dental abscess. Associated signs and symptoms: Pertinent positives: pain with swallowing, Pertinent negatives: discharge, drainage, fever, shortness of breath. 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 N/A - Post-menopause tw5 Historical: - Allergies: 19:56 Celecoxib; tw 19:56 cyclobenzaprine HCl; tw5 19:56 CYCLOSPORINE; tw5 19:56 divalproex; tw 19:56 Fentanyl; tw 19:56 tramadol; tw5 19:56 TETRACYCLINES; tw5 19:56 Sulfa (Sulfonamide Antibiotics); tw5 19:56 PENICILLINS; tw5 19:56 Lorazepam; tw5 19:56 Metoclopramide; tw5 19:56 Tizanidine; tw5 20:01 levetiracetam; tw5 - Home Meds: 08/04 11:19 Bentyl 10 mg Oral cap 1 cap 4 times per day [Active]; hydrocodone-acetaminophen 5-300 ss mg Oral tab 2 tabs every 4 hours [Active]; Klonopin 1 mg Oral tab four times a day [Active]; Nexium 40 mg Oral cpDR 2 times per day [Active]; phenazopyridine 100 mg Oral tab every 4 hours [Active]; potassium chloride 20 mEq Oral TbER 3 tab once daily [Active]; promethazine 25 mg Oral tab 1 tab every 6 hours [Active]; Soma 350 mg Oral tab 1.5 tab four times a day [Active]; - PMHx: 08/03 20:01 brain tumor x 5; Hernia; Multiple Sclerosis; Cancer; prolapsed bladder; tw5 - Immunization history:: Flu vaccine is not up to date. - Social history:: Smoking status: Patient reports the use of cigarette tobacco products, smokes two packs cigarettes per day. ROS: 21:05 Constitutional: Negative for body aches, chills, fever, poor PO intake. cp 21:05 Eyes: Negative for injury, pain, redness, and discharge. cp 21:05 ENT: Positive for dental pain, Negative for difficulty swallowing, difficulty handling secretions. 21:05 Cardiovascular: Negative for chest pain, edema, palpitations. 21:05 Respiratory: Negative for cough, shortness of breath, wheezing. 21:05 Abdomen/GI: Negative for abdominal pain, vomiting, diarrhea, constipation. 21:05 Neuro: Negative for altered mental status, headache, weakness. 21:05 All other systems are negative. Exam: 21:10 Constitutional: The patient appears in no acute distress, alert, awake, cp non-diaphoretic, non-toxic, well developed, well nourished, in obvious pain, uncomfortable. 21:10 Head/face: Noted is swelling, that is severe, of the left mandible, of the extending cp to left facial cheek and left side of neck. 21:10 Eyes: Periorbital structures: appear normal, Pupils: equal, round, and reactive to light and accomodation, Extraocular movements: intact throughout, Sclera: no appreciated abnormality, Lids and lashes: appear normal, bilaterally. 21:10 ENT: External ear(s): are unremarkable, Ear canal(s): are normal, clear, TM's: dullness, bilaterally, Nose: is normal, Mouth: Lips: moist, Oral mucosa: moist, Posterior pharynx: Airway: no evidence of obstruction, patent, Dental exam: dental caries, that is severe, diffusely, gum swelling, that is severe, specifically in the left lower jaw gumline, pain, that is severe, specifically in the multiple teeth left lower jaw. 21:10 Chest/axilla: Inspection: normal. 21:10 Cardiovascular: Rate: normal, Rhythm: regular. 21:10 Respiratory: the patient does not display signs of respiratory distress, Respirations: normal, no use of accessory muscles, no retractions, labored breathing, is not present, Breath sounds: are clear throughout, no decreased breath sounds, no stridor, no wheezing. 21:10 Abdomen/GI: Exam negative for discomfort, distension, guarding, Inspection: abdomen appears normal. 21:10 Neuro: Orientation: to person, place \T\ time. Mentation: is normal, Motor: moves all fours, strength is normal, Sensation: is normal. 21:20 ECG was reviewed by the Attending Physician. cp Vital Signs: 19:54 BP 140 / 74; Pulse 77; Resp 18; Temp 98.5; Pulse Ox 92% on R/A; Weight 92.53 kg; Height tw5 5 ft. 0 in. (152.40 cm); Pain 8/10; 22:04 BP 133 / 87; Pulse 73; Resp 15; Pulse Ox 92% on R/A; Pain 10/10; mb9 22:20 BP 104 / 48; Pulse 86; Resp 18; Pulse Ox 97% on 3 lpm NC; mb9 23:25 BP 136 / 99; Pulse 72; Resp 14; Pulse Ox 94% on R/A; Pain 5/10; mb9 19:54 Body Mass Index 39.84 (92.53 kg, 152.40 cm) tw5 MDM: 20:01 Patient medically screened. cp 21:30 Differential diagnosis: abscess, cellulitis, sepsis. cp 23:41 Data reviewed: vital signs, nurses notes, lab test result(s), EKG, radiologic studies, cp CT scan, plain films. Test interpretation: by ED physician or midlevel provider: ECG, plain radiologic studies. Physician consultation: Heber Rosen DDS was called at 23:40, was contacted at 23:40, regarding consult, patient's condition, and will see patient in inpatient room, tomorrow, would like admission per Dr. Fletcher Vega CLINICAL NURSING DIRECTOR-C. 08/03 20:03 Order name: Basic Metabolic Panel; Complete Time: 22:28 cp 08/03 22:28 Interpretation: Normal except: NA 131; GLUC 108. cp 08/03 20:03 Order name: CBC with Diff; Complete Time: 22:04 cp 08/03 22:04 Interpretation: Normal except: WBC 13.20; RDW 18.0; NEUT A 8.8. cp 08/03 20:03 Order name: Magnesium; Complete Time: 22:28 cp 08/03 20:03 Order name: PT-INR; Complete Time: 22:04 cp 08/03 21:19 Order name: Lactate w/ 2H reflex if indic.; Complete Time: 22:28 cp 08/03 21:19 Order name: Procalcitonin; Complete Time: 22:28 cp 08/03 20:03 Order name: XRAY Chest (1 view); Complete Time: 22:04 cp 08/03 22:04 Interpretation: Report review. cp 08/03 21:19 Order name: CT Soft Tissue Neck W/contr; Complete Time: 22:57 cp 08/03 21:19 Order name: Blood Culture Adult (2) cp 08/03 21:19 Order name: SARS RAPID; Complete Time: 22:28 cp 08/03 23:27 Order name: Urine Dipstick-Ancillary; Complete Time: 23:45 EDMS 08/04 03:45 Order name: CBC with Automated Diff EDMS 08/04 03:49 Order name: Basic Metabolic Panel EDMS 08/03 20:03 Order name: EKG; Complete Time: 20:04 cp 08/03 20:03 Order name: Cardiac monitoring; Complete Time: 21:04 cp 08/03 20:03 Order name: EKG - Nurse/Tech; Complete Time: 21:19 cp 08/03 20:03 Order name: IV Saline Lock; Complete Time: 21:38 cp 08/03 20:03 Order name: Labs collected and sent; Complete Time: 21:38 cp 08/03 20:03 Order name: O2 Per Protocol; Complete Time: 21:04 cp 08/03 20:03 Order name: O2 Sat Monitoring; Complete Time: 21:04 cp 08/03 20:03 Order name: Urine Dipstick-Ancillary (obtain specimen); Complete Time: 23:57 cp EC:20 Rate is 71 beats/min. Rhythm is regular. MD interval is normal. QRS interval is normal. cp QT interval is normal. T waves are Inverted in lead aVR. Interpreted by me. Reviewed by me. Administered Medications: 20:40 Drug: Zofran (Ondansetron) 4 mg Route: IVP; Site: right forearm; mb9 22:04 Follow up: Response: No adverse reaction mb9 20:45 Drug: morphine 4 mg Route: IVP; Infused Over: 4 mins; Site: right forearm; mb9 22:04 Follow up: Response: No adverse reaction mb9 21:50 Drug: Clindamycin 900 mg Route: IVPB; Infused Over: 30 mins; Site: right forearm; mb9 22:42 Drug: NS 0.9% 500 ml Route: IV; Rate: bolus; Site: right forearm; mb9 23:28 Follow up: Response: No adverse reaction; IV Status: Completed infusion 9 22:42 Drug: NS 0.9% 500 ml Route: IV; Rate: 100 ml/hr; Site: right forearm; mb9 08/04 00:00 Drug: morphine 4 mg Route: IVP; Infused Over: 4 mins; Site: right forearm; aa9 00:14 Drug: metroNIDAZOLE 500 mg Volume: 100 ml; Route: IVPB; Infused Over: 30 mins; Site: aa9 right forearm; Disposition: 19:15 STAFF ATTESTATION STATEMENT: I was immediately available onsite in the emergency sd2 department for consultation in the care of this patient. I did not see or examine this patient. Eufemia iNeves MD. Disposition Summary: 08/04/22 00:31 Hospitalization Ordered Hospitalization Status: Inpatient Admission cp Provider: Alejandro Campa cp Condition: Fair(08/04/22 00:31) cp Problem: new(08/04/22 00:31) cp Symptoms: have improved(08/04/22 00:31) cp Bed/Room Type: Standard cp Location: Telemetry/MedSurg (Inpatient)(08/04/22 15:39) Room Assignment: [facility](08/04/22 15:39) Diagnosis - Cellulitis of face(08/04/22 00:31) cp - Other diseases of pulp and periapical tissues(08/04/22 00:31) cp Forms: - Medication Reconciliation Form cp - SBAR form cp Signatures: Dispatcher [employer] EDWY Gloria Sarabia RN RN ss Fletcher Vega, FRANCIA-C CLINICAL NURSING DIRECTOR-Cla1 Phani Oconnor PA PA cp Thea Maurer, VITA RN Pattie Brown Eufemia Nieves MD MD de2 Chelsy Thomas RN RN [id number] Barb Kirkland RN RN mb9 Corrections: (The following items were deleted from the chart) 08/03 19:58 19:56 Allergies: ACETAMINOPHEN; 19:58 19:56 Allergies: Oxycodone HCl; 19:58 19:56 Allergies: NSAIDS (Non-Steroidal Anti-Inflammatory Drug); 23:07 23:07 Doctor cp cp 23:07 23:07 Disorder of teeth and supporting structures, unspecified cp cp 08/04 00:28 08/03 23:10 This 52 yrs old Female presents to ER via Ambulatory with complaints of cp Abscess. cp 08/04 00:30 08/03 23:07 [facility] cp cp 08/04 00:30 08/03 23:07 Higher level of care cp cp 08/04 00:30 08/03 23:07 Stable cp cp 08/04 00:30 08/03 23:07 new cp cp 08/04 00:30 08/03 23:07 have improved cp cp 08/04 00:30 08/03 23:07 Cellulitis of face cp cp 08/04 00:30 08/03 23:07 Other diseases of pulp and periapical tissues cp cp 08/04 00:30 08/03 23:07 Doctor cp cp 08/04 01:04 00:31 Telemetry/MedSurg (Inpatient) cp cg 01:04 00:31 cp cg 15:39 01:04 [facility] ER HOLD cg ss 15:39 01:04 ERHOLD- cg ss
[2022-08-03 23:26] LABS: Urine Blood Negative (Negative); Urine Glucose Negative (Negative); Urine Protein Negative (Negative); Urine Specific Gravity <=1.005 (1.005-1.030)
[2022-08-04] MEDS ORDERED: METRONIDAZOLE 500mg IVPB 500 MG/100 ML BAG IV ONE (00:07)
[2022-08-04] MEDS ORDERED: MORPHINE 4 MG/ML SYR ONE ×3 (00:07→15:36)
--- NOTE | 2022-08-04 00:38 | P.HP ---
Certification for Inpatient Patient admitted to: Observation With expected LOS: <2 Midnights Patient will require the following post-hospital care: None Practitioner: I am a practitioner with admitting privileges, knowledge of patient current condition, hospital course, and medical plan of care. Services: Services provided to patient in accordance with Admission requirements found in Title 42 Section 412.3 of the Code of Federal Regulations <Fletcher Vega - Last Filed: 08/04/22 00:34> Patient History Date of Service: 08/04/22 Reason for admission: Facial/dental abscess History of Present Illness: 52-year-old female with history of MS, hypertension, hyperlipidemia presents the emergency department for left-sided facial swelling and pain. She reports that her symptoms began last day or 2, she has significant left-sided facial swelling present. She was evaluated in the emergency department found to have elevated white blood cell count 13.2, no other sirs criteria were present. She had a CT scan of her face/neck with IV contrast which showed significant inflammatory fat stranding and phlegmonous material is seen along the left side of the face left perimandibular region. This is likely odontogenic in origin. No well-formed drainable abscess is seen. Enlarged left-sided lymphadenopathy is present. Rick lynette started on IV antibiotics clindamycin/Flagyl, ED provider discussed case with FS surgery Dr. Rosen who stated he will see patient tomorrow afternoon. Will admit for further evaluation and management. - Past Medical/Surgical History Diabetic: No -: cancer -: prlapsed bladder -: brain tumor x 5 -: MS -: Multiple abdominal surgeriesendometriosis -: -: Breast reconstruction Psychosocial/ Personal History: Patient is disabled, lives at home with her /daughter. - Family History Father -: Hypertension Mother -: Other (see notes) Notes: thyroid problems - Social History Smoking Status: Heavy Tobacco smoker (>10 cigarettes/day) Counseled patient to stop smoking for: less than 10 minutes Alcohol use: No CD- Drugs: No Caffeine use: Yes <Fletcher Vega - Last Filed: 08/04/22 00:34> Date of Service: 08/04/22 <Alejandro Campa - Last Filed: 08/04/22 16:45> Allergies Penicillins Allergy (Severe, Verified 04/03/18 11:53) anaphalxis cyclobenzaprine HCl [From Flexeril] Allergy (Intermediate, Verified 09/29/16 18:12) sob NSAIDS (Non-Steroidal Anti-Inflamma Allergy (Intermediate, Verified 09/29/16 18:12) sob, edema Sulfa (Sulfonamide Antibiotics) [Sulfa(Sulfonamide Antibiotics)] Allergy (Intermediate, Verified 09/29/16 18:12) anaphalxis tramadol HCl [From Ultram] Allergy (Intermediate, Verified 09/29/16 18:12) hives, sob tetracycline [Tetracycline] Allergy (Mild, Verified 09/29/16 18:12) anaphalyxis acetaminophen Allergy (Verified 12/30/17 03:02) Unknown celecoxib Allergy (Verified 12/30/17 03:02) Unknown levetiracetam Allergy (Verified 12/30/17 03:02) Unknown lorazepam Allergy (Verified 12/30/17 03:02) Unknown morphine Allergy (Verified 12/30/17 03:02) Unknown tizanidine Allergy (Verified 12/30/17 03:02) Unknown CYCLOSPORINE Allergy (Uncoded 12/30/17 03:02) Unknown divalproex Allergy (Uncoded 12/30/17 03:02) Unknown METOCLOPRAMIDE Allergy (Uncoded 12/30/17 03:02) Unknown Oxycodone HCl Allergy (Uncoded 12/30/17 03:02) Unknown Home Medications: Carisoprodol [Soma] 1.5 tab PO Q6H 04/03/18 Esomeprazole Mag Trihydrate [Nexium] 40 mg PO BID 04/03/18 Hydrocodone/Acetaminophen [Hydrocodone-Acetamin 5-300 mg] 1 - 2 tab PO Q4H 04/03/18 Phenazopyridine HCl [Pyridium] 1 tab PO Q4H 04/03/18 RX: Ciprofloxacin HCl [Cipro 500 MG Tablet] 500 mg PO DAILY #10 tab 04/03/18 RX: Dicyclomine HCl 1 tab PO Q6H 04/03/18 RX: Promethazine HCl 1 tab PO Q4H 04/03/18 clonazePAM [Clonazepam] 1 tab PO DAILY 04/03/18 Review of Systems 10-point ROS is otherwise unremarkable ENT: Other (Facial pain, swelling) <Fletcher Vega Gigi - Last Filed: 08/04/22 00:34> Physical Examination - Physical Exam General: Alert, In no apparent distress, Oriented x3, Obese HEENT: Atraumatic, PERRLA, Mucous membr. moist/pink, Other (Poor dentition, moderate left facial swelling), EOMI, Sclerae nonicteric Neck: Supple, 2+ carotid pulse no bruit, No LAD, Without JVD or thyroid abnormality Respiratory: Clear to auscultation bilaterally, Normal air movement Cardiovascular: Regular rate/rhythm, Normal S1 S2 Gastrointestinal: Normal bowel sounds, No tenderness Musculoskeletal: No tenderness Integumentary: No rashes Neurological: Normal speech, Normal strength at 5/5 x4 extr, Normal tone, Normal affect - Studies Laboratory Data (last 24 hrs) 08/03/22 21:30: PT 10.4, INR 0.95 08/03/22 21:30: WBC 13.20 H, Hgb 12.3, Hct 36.6, Plt Count 207 08/03/22 21:30: Sodium 131 L, Potassium 3.9, BUN 11, Creatinine 0.70, Glucose 108 H, Magnesium 2.1 <Fletcher Vega - Last Filed: 08/04/22 00:34> - Studies Laboratory Data (last 24 hrs) 08/03/22 21:30: PT 10.4, INR 0.95 08/03/22 21:30: WBC 13.20 H, Hgb 12.3, Hct 36.6, Plt Count 207 08/03/22 21:30: Sodium 131 L, Potassium 3.9, BUN 11, Creatinine 0.70, Glucose 108 H, Magnesium 2.1 <Alejandro Campa - Last Filed: 08/04/22 16:45> Assessment and Plan - Plan Assessment: Left-sided facial/dental abscesses Hypertension Hyperlipidemia MS Plan: Left-sided facial/dental abscesses: Continue antibiotics clindamycin/Flagyl. OMFS to evaluate tomorrow afternoon, with outpatient n.p.o. after breakfast until she is evaluated. Pain medications. Currently without trismus. Hypertension Hyperlipidemia MS:Continue home medications once verified. DVT PPX: Lovenox Code status: Full Discharge Plan: Home Plan to discharge in: 24 Hours - Advance Directives Does patient have a Living Will: No Does patient have a Durable POA for Healthcare: No - Code Status/Comfort Care Code Status Assessed: Yes (Full code) Critical Care: No Time Spent Managing Pts Care (In Minutes): 55 <Fletcher Vega - Last Filed: 08/04/22 00:34> Physician Review: Patient Assessed, Agree with Above Assessment and Plan Physician Review Additional Text: - Spoke with Dr. Rosen - recommends IV antibiotics and monitor over the next 24 hours prior to making a decision regarding surgery - At her request, spoke to her Pain Medicine physician, Dr. Sebastian Cameron, who stated that we can treat her pain as we see needed in the hospital. However, he would prefer that we do not write any outpatient prescriptions. 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 - He can be reached at [phone] Alejandro Campa M.D. <Alejandro Campa - Last Filed: 08/04/22 16:45>
[2022-08-04] MEDS ORDERED: ACETAMINOPHEN 500 MG TAB PO PRN (01:43)
[2022-08-04] MEDS ORDERED: METRONIDAZOLE 500mg IVPB 500 MG/100 ML BAG IV SCH (01:43)
[2022-08-04] MEDS: CLINDAMYCIN 600MG/D5W 50 ML IV SCH ×3 (02:00→17:59)
[2022-08-04 02:34] VITALS: BMI 39.8
[2022-08-04 03:35] LABS: Absolute Lymphocytes (CBC) 2.9 K/uL (0.7-4.9); Hematocrit 32.6 % (36.0-45.0); Lymphocytes % 28.2 % (15.3-44.8); MCV 85.2 fL (80-100); MPV 8.4 fL (7.6-11.3); RBC Red Blood Cell Count 3.82 M/uL (3.86-4.86)
[2022-08-04 03:48] LABS: Potassium 3.9 mmol/L (3.5-5.1)
[2022-08-04] MEDS ORDERED: CLINDAMYCIN 600MG/D5W 50 ML IV ONE ×2 (04:38→08:53)
[2022-08-04] MEDS ORDERED: MORPHINE 2 MG/ML SYR ONE ×2 (04:39→07:43)
[2022-08-04] MEDS ORDERED: ONDANSETRON 4 MG/2 ML VIAL ONE ×2 (04:39→17:08)
[2022-08-04] MEDS: MORPHINE 2 MG/ML SYR IV PRN ×2 (05:16→08:45)
[2022-08-04] MEDS: ONDANSETRON 4 MG/2 ML VIAL IV PRN ×2 (05:16→19:41)
[2022-08-04] MEDS: ENOXAPARIN 40 MG/0.4 ML SQ SCH (09:00)
[2022-08-04] MEDS: MORPHINE 4 MG/ML SYR IV PRN ×3 (11:00→19:42)
[2022-08-04 18:27] VITALS: O2SAT 94
[2022-08-05] MEDS: CLINDAMYCIN 600MG/D5W 50 ML IV SCH ×2 (00:27→09:35)
[2022-08-05] MEDS: MORPHINE 4 MG/ML SYR IV PRN ×3 (01:01→09:36)
[2022-08-05 05:46] LABS: Absolute Lymphocytes (CBC) 2.8 K/uL (0.7-4.9); Hematocrit 32.1 % (36.0-45.0); Lymphocytes % 31.6 % (15.3-44.8); MCV 85.2 fL (80-100); MPV 7.8 fL (7.6-11.3); RBC Red Blood Cell Count 3.77 M/uL (3.86-4.86)
[2022-08-05 05:57] LABS: Potassium 4.2 mmol/L (3.5-5.1)
[2022-08-05] MEDS: ONDANSETRON 4 MG/2 ML VIAL IV PRN (06:22)
[2022-08-05] MEDS: ENOXAPARIN 40 MG/0.4 ML SQ SCH (09:36)
[2022-08-05 12:08] VITALS: BP 114/71; TEMP 97
--- NOTE | 2022-08-05 13:24 | P.DS ---
Admission Date: 08/04/22 Discharge Date: 08/05/22 Disposition: ROUTINE DISCHARGE Discharge Condition: GOOD Reason for Admission: Facial/dental abscess Consultations: 1. Oral Maxillofacial Surgery Hospital Course: DIAGNOSES: # Left-Sided Perimandibular Cellulitis with Multiple Periapical Abscesses involving the Left Mandibular Molar Teeth # Multiple Dental Erosions and Dental Caries # Enlarged Reactive Left-Sided Lymphadenopathy # Multiple Sclerosis # Hypertension # Hyperlipidemia # Obesity - BMI 38.9 kg/m2 HOSPITAL COURSE: Ms. Lianne Medina is a 52 year old female with a past medical history significant for multiple sclerosis, chronic pain syndrome, hypertension, and hyperlipidemia who was admitted to the [facility] on for leftsided facial swelling. She was admitted to the Medicine service. Upon further evaluation, her CT revealed, "significant inflammatory fat stranding and phlegmonous material is seen along the left side of the face left perimandibular region. This is likely odontogenic in origin. No well-formed drainable abscess seen. Enlarged reactive left-sided lymphadenopathy is present." Oral Maxillofacial Surgery was consulted and she was evaluated by Dr. Rosen. He recommended admitting her for IV clindamycin and monitoring her symptoms for any worsening. Over the course of her hospitalization, her swelling as well as her leukocytosis, improved. Dr. Rosen has cleared her for discharge with a follow-up appointment on 08/07/2022. He recommended discharge with 7 days of clindamycin 150 mg PO q6hrs. He plans to drain these abscesses as an outpatient in his office. In regards to her chronic pain syndrome, I spoke with her Pain Medicine specialist, Dr. Cameron. He requested that, at discharge, we do not prescribe any outpatient narcotic medications. He states that he has prescribed her a 3-day supply of [place]-10 for the acute pain she is currently experiencing. I have also spoken with her PCP (Dr. Oliveira), who will have her follow-up in his clinic soon. On 08/05/2022, she was seen on rounds and deemed medically stable for discharge. She was discharged with instructions to schedule follow-up appointments with her PCP (Dr. Oliveira), with Oral Maxillofacial Surgery (Dr. Rosen), and with Pain Medicine (Dr. Cameron). She was provided a prescription for clindamycin. She was given the opportunity to ask questions and reported no further questions. Furthermore, all questions were answered to the best of my ability. A copy of this discharge summary will be sent to the above providers to facilitate continuity of care. Today, I personally spent 20 minutes on her case, of which greater than 50% of the time was spent in patient education, counseling, and coordination of care as described above. Vital Signs/Physical Exam: Temp Pulse Resp BP Pulse Ox 97.0 F 70 14 114/71 92 08/05/22 12:00 08/05/22 12:00 08/05/22 12:00 08/05/22 12:08/05/22 12:00 General: Alert, In no apparent distress, Oriented x3 HEENT: PERRLA, Mucous membr. moist/pink, Other (left-sided facial swelling, no airway compromise. Improved compared to demarcations from yesterday), Sclerae nonicteric Neck: JVD not distended Respiratory: Clear to auscultation bilaterally, Normal air movement Cardiovascular: No edema, Regular rate/rhythm, Normal S1 S2, No gallops, No rubs, No murmurs Gastrointestinal: Normal bowel sounds, Soft and benign, Non-distended, No tenderness, No rebound, No guarding Musculoskeletal: No clubbing Integumentary: Other (minimal erythema with tenderness along left mandible. Firmness noted, but improved compared to yesterday. No obvious drainage or purulence appreciated.) Neurological: Normal speech, Normal affect Laboratory Data at Discharge: WBC 8.70 K/uL (4.3-10.9) 08/05/22 05:25 Hgb 10.5 g/dL (12.0-15.0) L 08/05/22 05:25 Hct 32.1 % (36.0-45.0) L 08/05/22 05:25 Plt Count 194 K/uL (152-406) 08/05/22 05:25 PT 10.4 SECONDS (9.5-12.5) 08/03/22 21:30 INR 0.95 08/03/22 21:30 Sodium 131 mmol/L (136-145) L 08/05/22 05:25 Potassium 4.2 mmol/L (3.5-5.1) 08/05/22 05:25 BUN 10 mg/dL (7-18) 08/05/22 05:25 Creatinine 0.72 mg/dL (0.55-1.02) 08/05/22 05:25 Glucose 114 mg/dL (74-106) H 08/05/22 05:25 Magnesium 2.1 mg/dL (1.6-2.4) 08/03/22 21:30 Home Medications: Carisoprodol [Soma] 1.5 tab PO TID PRN 04/03/18 Dicyclomine HCl 1 tab PO TID 04/03/18 Esomeprazole Mag Trihydrate [Nexium] 20 mg PO BREAKFAST 04/03/18 Hydrocodone/Acetaminophen [Hydrocodone-Acetamin 5-300 mg] 1 tab PO Q8H PRN 04/03/18 Phenazopyridine HCl [Pyridium] 1 tab PO TID PRN 04/03/18 Promethazine HCl 1 tab PO Q12HR PRN 04/03/18 Atorvastatin Calcium 10 mg PO DAILY 08/04/22 Carvedilol [Coreg] 12.5 mg PO BID 08/04/22 Esomeprazole Magnesium 40 mg PO DAILY 08/04/22 Fluticasone [Flonase 50MCG Nasal [place]*] 2 sprays NS DAILY 08/04/22 Gabapentin 300 mg PO TID 08/04/22 Montelukast [Singulair*] 10 mg PO DAILY 08/04/22 Ondansetron [Zofran (Odt)*] 4 mg PO Q8H PRN 08/04/22 Pantoprazole [Protonix Tab*] 40 mg PO DAILY 08/04/22 methocarbamoL [Methocarbamol] 500 mg PO Q12H 08/04/22 clindamycin HCL [Clindamycin HCl] 150 mg PO Q6H 7 Days #28 tab 08/05/22 New Medications: clindamycin HCL [Clindamycin HCl] 150 mg PO Q6H 7 Days #28 tab Physician Discharge Instructions: 1. Please call and schedule a follow-up appointment with your PCP (Dr. Oliveira) in 3-5 days 2. Please call and schedule a follow-up appointment with Oral Maxillofacial Surgeon (Dr. Rosen) on 08/07/2022 3. Please call and schedule a follow-up appointment with your Pain Medicine specialists (Dr. Cameron) in 3-5 days - I spoke with Dr. Cameron, he stated that he will write all of your pain medication prescriptions Diet: Regular Activity: Ad kyree Followup: Heber Rosen DDS, MD [ACTIVE - CAN ADMIT] - (Sunday if possible. Sunday at the latest) Wilbur Oliveira DO [Primary Care Provider] - 1 Week Time spent managing pt's care (in minutes): 20
--- NOTE | 2022-08-05 17:42 | EKG ---
Test Date: 2022-08-03 Test Time: 21:09:46 Turn Machine Operator: MB MEASUREMENT RESULTS: Intervals: Rate: 71 [place]: 152 QRSD: 76 QT: 404 QTc: 439 Hessel: P: 47 [place]: 152 QRS: 54 T: 53 INTERPRETIVE STATEMENTS: Normal sinus rhythm Normal ECG Compared to ECG 04/03/2018 00:40:31 No significant changes Electronically Signed On 08-05-22 17:40:05 ASSISTANT FACILITY MANAGER by Beau Graf
== END 2022-08-05 13:55 | disposition home or self-care (01) ==
LOC: ER 19:35 → ERHOLD 08-04 00:21 → 2ND 08-04 16:57
PROVIDERS: ADMIT Internal Medicine; ATTEND Internal Medicine
DX: K04.7 Periapical abscess without sinus (principal); L03.211 Cellulitis of face; K02.9 Dental caries, unspecified; K03.2 Erosion of teeth; I10 Essential (primary) hypertension; G35 Multiple sclerosis; E78.5 Hyperlipidemia, unspecified; R59.1 Generalized enlarged lymph nodes; R51.9 Headache, unspecified; E66.9 Obesity, unspecified; Z68.38 Body mass index [BMI] 38.0-38.9, adult; Z88.0 Allergy status to penicillin; Z88.6 Allergy status to analgesic agent; Z88.8 Allergy status to other drugs, medicaments and biological substances; Z20.822 Contact with and (suspected) exposure to COVID-19
CPT/HCPCS: 96361; 93005; 87040 ×2; 85025 ×3; 80048 ×3; 36415 ×2; 83735; 85610; 83605; 81003; 84145; 70491; 71045; 96375; 96374; 99284; 87811; Q9967; J1650; J2270 ×2; J7030; J2405 ×5; G0378 ×3

== ENCOUNTER 2023-01-19 15:12 | Emergency (ER) | payer OTHER ==
--- OUTSIDE RECORDS SUMMARY | 2023-01-19 15:39 | XMS REPORT | Clinical Summary ---
:1970 Author Organization [facility] MD Driver [facility] Address [address] [place] [address] Care Team Providers Name Role Phone Mingo Street MD Primary Care Provider Nomi Olea MD Unavailable Pedro Comer MD Unavailable Haresh Venegas MD Unavailable Unavailable Magnolia Holden MD Unavailable Prince ARELIS Schreiber Unavailable Darnell Wellington MD Unavailable Jossue Suresh Unavailable Mingo Street MD Unavailable Margarita Chaves Unavailable Kimber Mendoza MD Unavailable Allergies Active Allergy Reactions Severity Noted Date [...] 08/20/2021 Per patient thr oat closes up Sellers Analogues Other (See Comments) 01/21/2016 Penicillins High 03/01/2016 Throat closes u p Metoclopramide Hcl Other (See Comments) Low 04/10/2016 Tetracyclines Hives 01/21/2016 Tramadol Shortness Of Breath High 03/01/2016 Throat c loses up Tizanidine 04/10/2016 unknown Medications Medication Sig Dispensed Refills Start Date End Date Status esomeprazole (NexIUM) Take 40 mg by 0 Active 40 MG capsule mouth 2 (two) times a day before meals. dicyclomine (BENTYL) Take 10 mg by 0 Active 10 mg capsule mouth every 4 (four) hours as needed. ADVAIR DISKUS 100-50 daily as needed. 1 11/23/2016 Active mcg/dose diskus inhaler phenazopyridine Take 100 mg by 0 Active (PYRIDIUM) 100 mg mouth every 6 tablet (six) hours as needed. ondansetron (ZOFRAN) 8 2 tablets 3 0 09/09/2021 Active mg tablet (three) times a day. zinc (Chelated Zinc) Take by mouth. 0 Active 50 mg tab magnesium Take 4 tablets 0 Activ e oxide-protein complex by mouth daily. (Vk-Cviq-Ajzfzoj Complex) 133 mg tablet cholecalciferol, Take 2,000 Units 0 Active vitamin D3, (VITAMIN by mouth. D3) 2,000 units tab tablet ascorbic acid, vitamin Take 500 mg by 0 Active C, (vitamin C) 100 mg mouth daily. Pt tablet can't remember the dose diazePAM (VALIUM) 5 mg Take 5 mg by 0 Active tablet mouth 4 (four) times a day. As needed carisoprodol (SOMA) Take 350 mg by 0 10/27/2007 Active 350 mg tablet mouth. promethazine Take by mouth. 0 Ac tive (PHENERGAN) 12.5 mg tablet ketoconazole (NIZORAL) Apply topically 120 mL 11 09/26/2021 09/26/2022 2% shampooIndications: to affected Seborrhea capitis area(s) 3 (three) times a week Sunday, Sunday and Sunday. Leave in scalp for 5 minutes before washing off Active Problems Problem Noted Date Moderate dehydration 08/13/2021 Nausea 08/13/2021 Bronchopneumonia 01/30/2017 Hyposmolality and/or hyponatremia 01/30/2017 Abdominal pain 01/30/2017 Productive cough 01/30/2017 Dysuria 01/30/2017 Tachycardia 01/30/2017 Hypoxia 01/30/2017 shelter current use of opiate analgesic 11/01/2016 Post-traumatic stress disorder 11/01/2016 Mild cognitive disorder 11/01/2016 Adjustment disorder with physical complaints 7 Hyponatremia 10/31/2016 Melena 10/31/2016 Endometriosis 10/31/2016 Urinary tract infection 10/31/2016 Colitis 10/31/2016 Chronic pain syndrome 10/31/2016 Tobacco use 10/31/2016 Anemia of chronic disease 10/31/2016 Headache 10/31/2016 Abdominal pain, generalized 04/13/2016 Generalized anxiety disorder 04/13/2016 Encounters Date Type Specialty Care Team Description 10/24/2022 Telephone Cancer Prevention Lyssa Batista Mis sed appointment (No RN answer, LM for patient to return call to clinic) after 01/19/2022 Surgical History Surgery Date Site/Laterality Comments BREAST RECONSTRUCTION FL ESOPHAGOGASTRODUODENOSCOPY 11/02/2016 Esophagus/N/A Pr ocedure: DIAGNOSTIC TRANSORAL DIAGNOSTIC UPPER GASTR OINTESTINAL ENDOSCOPY; Surge on: Apoorva Mane i, MD; Location: MAIN ENDOSCOPY; Servi ce: GASTROENTEROLOGY FL COLONOSCOPY FLX DX W/COLLJ SPEC 11/02/2016 N/A Procedure: DIAGNOSTIC WHEN PFRMD FLEXIBLE COLONOS COPY PROXIMAL TO SPLE DOUG FLEXURE; Surgeon : Apoorva Mane i, MD; Location: MAIN ENDOSCOPY; Servi ce: GASTROENTEROLOGY COLONOSCOPY 07/30/1998 - 07/29/1999 EXPLORATORY LAPAROTOMY [id number] HYSTERECTOMY [id number] UPPER GASTROINTESTINAL ENDOSCOPY 07/30/1998 - 07/29/1999 Medical History Medical History Date Comments Stroke Seizure Myocardial infarction 1997 Hyperlipidemia Irregular heart beat Migraine 1982 Multiple sclerosis 1970 Traumatic brain injury 9174-7298 Allergic rhinitis 8758-4322 Sinusitis 5752-1618 Difficulty talking 2016 Tooth disorder 2012 Swallowing problem 2003 Chronic bronchitis 5694-4215 Asbestosis 1437-0883 Pneumonia 2004 Gastric reflux 1987 Colitis 1998 2separate bailee finney ifferent diagnosis Celiac disease 2006 Malabsorption syndrome 1982 Diverticulitis Irritable bowel syndrome 1998 Renal stone 1982 History of recurrent urinary tract 1987 infection Urinary incontinence Sexual dysfunction Abnormal uterine bleeding unrelated 9311-1491 to menstrual cycle Polycystic ovarian syndrome 1989 Endometriosis 1731-6552 Dr Comer stated en do had traveled to other organs,hips , sp Anemia 2007 Blood transfusion, without reported 1982 Size J, breast total reconstuction diagnosis Osteoporosis 2009 Osteomyelitis 1994 Breake of wrist had to take antibiotics Anxiety 8515-5630 do not have anxiety or panic attacks since 2003 Psoriasis 1967-current Endometrial carcinoma Cancer - Multiple sclerosis 11/27/[address] 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 Bone canc er [email or web address] Hypertension Father [place] A[place] Melanoma Father [place] Prostate cancer Father [place] A[place] Sarcoma Father [place] Bone cancer Skin cancer Father [place] Aleg[place] Colon cancer Maternal Aunt Debbielynn Colon cancer Maternal Grandfather Prashant Diazp Graves' disease Maternal Grandfather Prashant Diazp Head [...] cancer Paternal Uncle Prashant -Unknown cancer Sister [facility] Graves' disease Sister [facility] Uterine cancer Sister [facility] Vaginal cancer Sister [facility] Relation Name Status Comments Father [place] Maternal Aunt Debbielynn Maternal Grandfather Prashant Diazp Mother [place] Paternal Aunt 1 Billysue Raji Paternal Aunt 2 Debbielynn Paternal Grandfather Demar Paternal Grandmother Marilee Paternal Uncle Prashant Sister [facility] Social History Tobacco Use Types Packs/Day Years [...] Breast Bx no Last Filed Vital Signs Not on file Plan of Treatment Health Maintenance Due Date Last Done Comments COVID-19 Vaccination (#1) 01/22/1969 Results Not on fileafter 01/19/2022 Insurance Payer Benefit Plan / Subscriber ID Effective Dates Phone Addre ss Type Group [facility] [id number] 2015-Presen [address] [facility] [place] [address] [phone] [id number] (Work) Lianne Medina Personal/Family Self 1970 [id number] [place] [phone] Lianne Medina Personal/Family Self 1970 [id number] [place] [phone] Advance Directives Code Status Date Activated Date Inactivated Comments Full Code 08/13/2021 11:31 PM 08/14/2021 11:37 AM Code Status Date Activated Date Inactivated Comments Full Code 01/30/2017 9:39 PM 01/31/2017 3:59 PM Full Code 10/31/2016 4:56 AM 11/04/2016 5:01 PM Full Code 04/10/2016 10:29 PM 04/12/2016 5:58 PM Care Teams Video News Editor Relationship Specialty Start Date End Date Mingo Street MD PCP - General 09/29/[address] [place] [id number] Nomi Olea, PCP - External Follow Up 04/03/14 MD Silver [address] [facility] [address] [place] [address] Pedro Comer, PCP - External Follow Up 04/20/14 MD Humphrey [address] [facility] [address] [place] [address] Kimber Mendoza PCP - External Follow Up Internal Medicine 10/28 09/20 MD Sandee Whitmore [address] [place] [id number] Haresh Venegas MD Nurse Practitioner 10/06/15 Magnolia Holden MD Physician 10/06/[address] [place] [phone] Prince Schreiber APRN Nurse Practitioner 10/06/[address] [place] [phone] Darnell Wellington MD Physician 10/06/[address] [place] [id number] Jossue Suresh PA Physician Cargo Services Coordinator 10/06/[address] [place] [id number] MD Physician 10/06/[address] [place] [id number] Margarita Chaves PA Physician Cargo Services Coordinator 10/06/[address] [place] [address] [phone]
--- OUTSIDE RECORDS SUMMARY | 2023-01-19 15:44 | XMS REPORT | Continuity of Care Document ---
:1970 Author Organization [facility] t Address [address] [facility] [address] [place] [address] Care Team Providers Name Role Phone Nomi Grimm MD Primary Care Physician KIMBER MENDOZA Attending Clinician Unavailable NOMI GRIMM Attending Clinician Unavailable JOHN FERRELL Attending Clinician Unavailable MD CHERELLE Attending Clinician Unavailable Lester GORMAN, Lyssa Galindo Attending Clinician RUBÉN MORALES Attending Clinician Unavailable LAUREN DOW Attending Clinician Unavailable LAB90 Attending Clinician Unavailable LAB39 Attending Clinician Unavailable ANATOLY ALVARADO Attending Clinician Unavailable DILLAN LINDQUIST Attending Clinician Unavailable AKHIL MCBRIDE Attending Clinician Unavailable LAB67 Attending Clinician Unavailable PLAB Attending Clinician Unavailable ARAMIS GOODWIN Attending Clinician Unavailable ARAMIS GOODWIN Attending Clinician Unavailable KOFI RANGEL Attending Clinician Unavailable Aramis Goodwin MD Attending Clinician PARKER TAMAYO Attending Clinician Unavailable Kimber Mendoza MD Attending Clinician [phone] Anesthesiology Attending Clinician Unavailable Doctor Unassigned, [place] Attending Clinician Unavailable Pcp, Palliative Care Attending Clinician Unavailable MARK ANTHONY SALOMON Attending Clinician Unavailable Mark Anthony Salomon MD Attending Clinician Timmy INTERVENTIONAL NURSE, Cris Attending Clinician Pob, Adc Lab Main Attending Clinician Unavailable Felicia Pepper LMSW Attending Clinician Silvia GORMAN, Jojo Galindo Attending Clinician NENITA HARRY Attending Clinician Unavailable Sherrie Castellano MD Attending Clinician [phone] Nenita Harry MD Attending Clinician Neo Gandara MD Attending Clinician CRIS WARNER Attending Clinician Unavailable Libby Irving MD Attending Clinician KIMBERLYN PHOENIX Attending Clinician Unavailable Kimberlyn Phoenix MD Attending Clinician ELLEN REYES Attending Clinician Unavailable Ellen Reyes PA-C Attending Clinician Phani Eagle RN Attending Clinician Unavailable Cherrie Johnson APN Attending Clinician Natalie Mcdonald MD Attending Clinician Kassidy Wheeler CRNA Attending Clinician Yolis Agustin RN Attending Clinician Unavailable Felicia Cueva RN Attending Clinician Unavailable Attila GORMAN, Jenny Warren Attending Clinician Unavailable LIBBY IRVING Attending Clinician Unavailable Theo RN, Litty Attending Clinician Laron GORMAN, Norris Silver Attending Clinician Unavailable Curtis Amador MD Attending Clinician CURTIS AMADOR Attending Clinician Unavailable NELY MOORE Attending Clinician Unavailable Alix AIR TRAFFIC COORDINATOR, Nely Attending Clinician [facility] Attending Clinician Unavailable Bessie FELDMAN, Seema Attending Clinician Shorty WESTFALL, Sherrie Attending Clinician Nicol Matias NP Attending Clinician Mark, Ang - Db Attending Clinician Unavailable Darrel SHAHID, Miguel Ángel Attending Clinician MIGUEL ÁNGEL DEL TORO Attending Clinician Unavailable Nory RN, Lavon Attending Clinician Unavailable Carlyle WESTFALL, Dimitri Attending Clinician Cathy WESTFALL, Tigist Attending Clinician Sesar Clark RN Attending Clinician Unavailable Alisha Ceron RN Attending Clinician Tameka INTERVENTIONAL NURSE, Blanca Attending Clinician Casey WESTFALL, Thomas Attending Clinician THOMAS LANG Attending Clinician Unavailable Marita WESTFALL, Fernando Carlson Attending Clinician Unavailable Jennifer Maher RN Attending Clinician Dominga Villalobos MD Attending Clinician Osvaldo Vidal MD Attending Clinician Bev John MA Attending Clinician Unavailable Jayla Roblero RN Attending Clinician Unavailable ERIKA Attending Clinician Unavailable Luz Massey RN Attending Clinician Unavailable Mira Garcia RN Attending Clinician Unavailable Randee Gonzalez RN Attending Clinician Unavailable Tiffany Moscoso RN Attending Clinician Unavailable Fani Hartley RN Attending Clinician Unavailable Tram Alonso RN Attending Clinician Unavailable Dalia GORMAN, Selam Attending Clinician Unavailable Dulce Maria GORMAN, Beba Attending Clinician Unavailable Natalya Toribio RN Attending Clinician Unavailable Sendy Aguilar RN Attending Clinician Unavailable Hernesto GORMAN, Curtis Attending Clinician Unavailable Abbey GORMAN, Yari Attending Clinician Unavailable Mira Celeste RN Attending Clinician Unavailable Demond GORMAN, Danielle Attending Clinician Unavailable NOMI GRIMM M.D. Attending Clinician Unavailable KIMBER MENDOZA Admitting Clinician Unavailable Kimber Mendoza MD Admitting Clinician [phone] NENITA HARRY Admitting Clinician Unavailable Nenita Harry MD Admitting Clinician KIMBERLYN PHOENIX Admitting Clinician Unavailable NELY MOORE Admitting Clinician Unavailable DOMINGA VILLALOBOS Admitting Clinician Unavailable ERIKA Admitting Clinician Unavailable Payers Payer Name Policy Type Policy Number Effective Date Expiration Date Alberto gautam [facility] [id number] 2015 PPO/POS 00:00:00 [facility] CHOICE/CHOICE [id number] 2020 PLUS 00:00:00 [place] [id number] 2022 00:00:00 Problems Condition Condition Condition Status Onset Resolution Last Treating Co mments Source Name Details Category Date Date Treatment Clinician Date Tobacco Tobacco Disease Active Sneha abuse abuse 5-22 Seybold 00:00: - 00 Externa l Dizziness Dizziness Disease Active Smith sey 4-14 Seybold 00:00: - 00 Externa l 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:00: - mixed mixed 00 Externa hyperlipid hyperlipid l emia emia Chronic Chronic Disease Active Sneha interstiti interstiti 3-13 Se ybold al al 00:00: - cystitis cystitis 00 Compliance Auditor a l Class 3 Class 3 Disease Active Sneha severe severe 3-13 Seybold obesity obesity 00:00: - due to due to 00 Externa excess excess l calories calories with with serious serious comorbidit comorbidit y and body y and body mass index mass index (BMI) of (BMI) of 40.0 to 40.0 to 44.9 in 44.9 in adult adult Left Left Disease Active Sneha facial facial 1-10 Seybold swelling swelling 00:00: - 00 Externa l Epigastric Epigastric Disease Active 2021-07 K elsey pain pain 2-13 Seybold 00:00: - 00 [...] Disease Active 2021-07 Kelse y allergic allergic 2- Seybol d rhinitis rhinitis 00:00: - due to due to 00 Externa pollen pollen l Dysuria Dysuria Disease Active 2021-07 Sneha 1-09 Seybold 00:00: - 00 Externa l Primary Primary Disease Active 2021-07 Sneha hypertensi hypertensi 109 Se ybold on on 00:00: - 00 Externa l 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 Sneha hyperlipid hyperlipid 109 Se ybold emia emia 00:00: - 00 Externa l Family Family Disease Active 2021-07 Sneha history of history of 109 Se ybold goiter goiter 00:00: - 00 Externa l Enlarged Enlarged Disease Active 2021-07 Smithse y thyroid thyroid 1- Seybold 00:00: - 00 Externa l Chronic Chronic Disease Active 2021-07 Sneha constipati constipati 1-09 Se ybold on on 00:00: - 00 Externa l Hilar Hilar Disease Active 2021-07 Sneha adenopathy adenopathy 1-09 Se ybold 00:00: - 00 Externa l Shortness Shortness Disease Active 2021-07 Smith sey of breath of breath 1-09 Seyb old 00:00: - 00 Externa l Urinary Urinary Disease Active 2021-07 Sneha tract pain tract pain 1-09 Se ybold 00:00: - 00 Externa l 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 00:00: - 00 Externa l Screening Screening Disease Active 2021-07 Smith sey for for 07-31 Seybold diabetes diabetes 00:00: - mellitus mellitus 00 Compliance Auditor a (DM) (DM) l Hyponatrem Hyponatrem Disease Active 2021-07 Xin sharon ia ia 07-31 Seybold 00:00: - 00 Externa l 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 07-31 Seyb old 00:00: - 00 Externa l Fibromyalg Fibromyalg Disease Active 2021-07 Xin leocal ia ia 07-31 Seybold 00:00: - 00 [...] [facility] Bronchopne Bronchopne Disease Active U nivers umonia umonia 7-04 ity of 00:00: [place] 00 [facility] Hyposmolal Hyposmolal Disease Active U nivers ity and/or ity and/or 7 it y of hyponatrem [place]on[place]rem [place] [facility] [place] Abdominal Abdominal Disease Active Uni vers pain pain 7 ity of 00:00: [place] 00 MD Jace [facility] Productive Productive Disease Active U nivers cough cough 01-30 ity of 00:00: [place] MD [facility] Dysuria Dysuria Disease Active Univers 7 ity of 00:00: [place] 00 MD [facility]ace [facility] Tachycardi Tachycardi Disease Active U nivers a a 01-30 ity of 00:00: [place] 00 MD [facility]ace [facility] Hypoxia Hypoxia Disease Active Univers 01-30 ity of 00:00: [place] 00 MD Jace [facility] 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 4-05 ity of use of use of 00:00: [place] opiate opiate 00 analgesic analgesic [facility] Post-traum Post-traum Disease Active U jessica atic atic 4-05 ity of stress stress 00:00: [place] disorder disorder 00 MD [facility] Mild Mild Disease Active Univers cognitive cognitive 4-05 ity of disorder disorder 00:00: [place] 00 MD [facility] Adjustment Adjustment Disease Active U nivers disorder disorder 4-05 ity of with with 00:00: [place] physical physical 00 complaints complaints [facility] Tobacco Tobacco Disease Active Univers use use 4 ity of 00:00: [place] 00 [facility] Hyponatrem Hyponatrem Disease Active U nivers ia ia 4-04 ity of 00:00: [place] 00 MD [facility] Melena Melena Disease Active Univers 4- ity of 00:00: [place] 00 MD Jace y[facility] Endometrio Endometrio Disease Active U nivers sis sis 4- ity of 00:00: [place] 00 MD [facility] Urinary Urinary Disease Active Univers tract tract 4-04 ity of infection infection 00:[place] [facility] Colitis Colitis Disease Active Univers 4-04 ity of 00:00: [place] 00 [facility] Chronic Chronic Disease Active Univers pain pain 4-04 ity of syndrome syndrome 00:00: [place] 00 MD [facility] Tobacco Tobacco Disease Active Univers use use 404 ity of 00:00: [place] 00 MD [facility] Anemia of Anemia of Disease Active Uni vers chronic chronic 4-04 ity of disease disease 00:00: [place] 00 MD [facility] Headache Headache Disease Active Unive rs 4-04 ity of 00:00: [place] 00 MD [facility] Multiple Multiple Disease Active Unive rs sclerosis sclerosis 10-30 ity of 00:00: [place] 00 [facility] Hyponatrem Hyponatrem Disease Active M ethodi ia ia 04-16 st 00:00: Hospita 00 l Abdominal Abdominal Disease Active Uni vers pain, pain, 9-15 ity of generalize generalize 00:00: [place] 00 [place] [facility] Generalize Generalize Disease Active U nivmargarita d anxiety d anxiety 9-15 ity of disorder disorder 00:00: [place] 00 MD [facility] Urinary Urinary Disease Active Univers incontinen incontinen 916 it y of ce in ce in 00:00: [place] female female 00 Medical Branch Muscle Muscle [...] Physici ans No known No known Disease [facility] active active College problems problems of Medicin e Allergies, Adverse Reactions, Alerts Allergy Allergy Status Severity Reaction(s) Onset Inactive Treating Comm ents Source Name Type Date Date Clinician Fentanyl Propensi Active Other (See Agitation Univers ty to Comments) 12-16 , ity of adverse 00:00: Increased [place] reaction 00 heart MD dominguez rate [facility]ace [facility] FENTANYL DRUG Active High Anxiety INGREDAra 12-16 Anderso 00:00: n 00 Prochlor Propensi Active Univer s perazine ty to 12-15 ity of adverse 00:00: [place] reaction 00 MD alberto yoder [facility] PROCHLOR DRUG Active MD PERAZINE INGREDI 12-15 Anderso 00:00: n 00 Ketorola Drug Active Per Univers c Allergy 08-20 patient ity of 00:00: throat [place] 00 closes up MD Jace yoder [facility] KETOROLA DRUG Active High MD Ignacio INGREDI 08-20 Anderso 00:00: n 00 Fentanyl Allergy Active 2020-07 [facility] to 14 Health substanc 00:00: e 00 Ibuprofe Allergy Active 2020-07 [facility] n to 09-12 Health substanc 00:00: e 00 Levoflox Allergy Active 2020-07 [facility] acin to 09-12 Health substanc 00:00: e 00 Prochlor Allergy Active 2020-07 [facility] perazine to 09-12 Health substanc 00:00: e 00 Sulfa Allergy Active 2020-07 [facility] Antibiot to 09-12 Health ics substanc 00:00: e 00 Fentanyl Propensi Active PALPITATIONS 2020-07 Agitati on [...] Externa s l Fentanyl Propensi Active 2020-07 [facility] ty to 09-12 [place] adverse 00:00: of reaction 00 Medicin s to e drug Ibuprofe Propensi Active 2020-07 [facility] n ty to 09-12 [place] adverse 00:00: of reaction 00 Medicin s to e drug Prochlor Propensi Active 2020-07 [facility] perazine ty to 09-12 [place] adverse 00:00: of reaction 00 Medicin s to e drug Celecoxi Propensi Active Other - See 2015-07 [...] Drug Active Hives 2015-07 Univers PORINS Class 08-02 ity of 00:00: [place] 00 [facility] PHENYTOI DRUG Active Palpitations 2015-07 Un niru N INGREDI 08-02 ity of 00:00: [place] 00 [facility] LEVETIRA DRUG Active Palpitations 2016-1 Un niru CETAM INGREDI 08-02 ity of [...] ity of 00:00: [place] 00 [facility] Ciproflo Allergy Active Other 2015-07 "states [place] xacin to 08-02 bladder Health substanc 00:00: infection e 00 " Diphenhy Propensi Active Hives 2015-07 [facility] dramine ty to 08-02 Health adverse 00:00: reaction 00 s Ketorola Allergy Active Hives 2015-07 [facility] c to 08-02 Health Trometha substanc 00:00: mine e 00 Pentazoc Allergy Active Hives 2015-07 [facility] ine to 04 Health substanc 00:00: e 00 Diphenhy Propensi Active [...] s l Ketorola Propensi Active Hives 2015-07 [facility] c ty to 08-02 College Trometha adverse 00:00: of mine reaction 00 Medicin s to e drug Pentazoc Propensi Active Hives 2015-07 [facility] ine ty to 08-02 [place] adverse 00:00: of reaction 00 Medicin s to e drug Phenazop Propensi Active 2015-07 Other [facility] yridine ty to 08-02 reaction( Colleg e adverse 00:00: s): of reaction 00 Unknown Medicin s to e drug Phenytoi Propensi Active Palpitations 2015-07 Mac n ty to 08-02 [place] adverse 00:00: of reaction 00 Medicin s to e drug Sulfa Propensi Active Hives 2015-07 [facility] Antibiot ty to 08-02 [place] ics adverse 00:00: of reaction 00 Medicin s to e drug Ciproflo Propensi Active Other (See 2015-07 "states B aylor xacin ty to Comments) 08-02 bladder Colleg e adverse 00:00: infection of reaction 00 ""states Medici n s to bladder e drug infection " Diphenhy Propensi Active Hives 2015-07 [facility] dramine ty to 08-02 [place] Hcl adverse 00:00: of reaction 00 Medicin s to e drug Sulfa Drug Active Hives 2015-07 Univers (Sulfona Allergy 08-02 ity of mide 00:00: [place] Antibiot 00 Medical ics) Branch Cyclospo Propensi Active Hives Method i rine ty to 04-16 st adverse 00:00: Hospita reaction 00 l s to drug Divalpro Propensi Active Palpitations Methodi ex ty to 04-16 st adverse 00:00: Hospita reaction 00 l s to drug Levetira Propensi Active Rash Method i cetam ty to 04-16 st adverse 00:00: Hospita reaction 00 l s to drug Lorazepa Propensi Active Anxiety Metho di m ty to 04-16 adverse 00:00: Hospita reaction 00 l s to drug Metoclop Propensi Active Other (See Me thodi ramide ty to Comments) 04-16 st adverse 00:00: Hospita reaction 00 l s to drug Morphine Propensi Active Shortness Of Methodi ty to Breath 04-16 st adverse 00:00: Hospita reaction 00 l s to drug Morphine Allergy Active Shortness of States U T to breath 04-16 "lips Health substanc 00:00: turn e 00 blue" Tetracyc Propensi Active Hives [facility] line ty to 04-16 Health adverse 00:00: reaction 00 s Acetamin Propensi Active Method i ophen ty to 04-16 st adverse 00:00: Hospita reaction 00 l s to drug Oxycodon Propensi Active Hives Method i e-Acetam ty to 04-16 st inophen adverse 00:00: Hospita reaction 00 l s to drug Morphine Propensi Active Shortness of States Sneha ty to Breath 04-16 "lips Seybold adverse 00:00: turn - reaction 00 blue"Stat Exter na s es "lips l turn blue"Stat es "lips turn blue" Acetamin Propensi Active Sneha ophen ty to 04-16 [place] Injectio adverse 00:00: - n reaction 00 Externa s l Penicill Propensi Active Anaphylaxis M ethodi ins ty to 04-16 st adverse 00:00: Hospita reaction 00 l s to drug Tetracyc Propensi Active Hives Method i line ty to 04-16 st adverse 00:00: Hospita reaction 00 l s to drug Tizanidi Propensi Active Anaphylaxis M ethodi ne ty to 04-16 st adverse 00:00: Hospita reaction 00 l s to drug Tramadol Propensi Active Shortness Of Methodi ty to Breath 04-16 st adverse 00:00: Hospita reaction 00 l s to drug Celecoxi Propensi Active Anaphylaxis M ethodi b ty to 04-16 st adverse 00:00: Hospita reaction 00 l s to drug Cephalos Propensi Active Shortness Of Methodi porins ty to Breath 04-16 st adverse 00:00: Hospita reaction 00 l s to drug TIZANIDI DRUG Active High Anaphylaxis Uni vers NE INGREDI 04-10 ity of 00:00: 00 Medical Branch METOCLOP DRUG Active Low Other-Cmnt Univ ers RAMIDE INGREDI 04-10 ity of 00:00: Medical Branch Metoclop Drug Active Other - See Uni vers ramide Allergy comments 04-10 ity of 00:00: Medical Branch Metoclop Allergy Active Other UT ramide to 04-10 Health substanc 00:00: e 00 Oxycodon Drug Active Hives UT e-Acetam Allergy 04-10 Health inophen 00:00: 00 Cycloben Propensi Active unknown Unive rs zaprine ty to 04-10 ity of adverse 00:00: [place] reaction 00 MD [facility] Metoclop Drug Active Other (See Univ ers ramide Allergy Comments) 04-10 ity of Hcl 00:00: [place] 00 MD [facility] Tizanidi Propensi Active unknown Unive rs ne ty to 12 ity of adverse 00:00: [place] reaction 00 MD [facility] Celecoxi Propensi Active Univer s b ty to 04-10 ity of adverse 00:00: [place] reaction 00 MD [facility] Cephalos Propensi Active unknown Unive rs porins ty to 12 ity of adverse 00:00: [place] reaction 00 MD [facility] Metoclop Propensi Active Other Sneha ramide ty [...] 00:00: - reaction 00 Externa s l Metoclop Propensi Active Other (See Ba ylor ramide ty to Comments) 04-10 College adverse 00:00: of reaction 00 Medicin s to e drug Oxycodon Propensi Active Hives [facility] e-Acetam ty to 04-10 [place] inophen adverse 00:00: of reaction 00 Medicin s to e drug Tizanidi Propensi Active Anaphylaxis unknownu n [facility] ne ty to 04-10 known [place] Hydrochl adverse 00:00: of oride reaction 00 Medicin s to e drug Celecoxi Propensi Active Other (See Ba ylor b ty to Comments) 04-10 [place] adverse 00:00: of reaction 00 Medicin s to e drug Cephalos Propensi Active Shortness Of unknown [facility] porins ty to Breath 04-10 College adverse 00:00: of reaction 00 Medicin s to e drug Cycloben Propensi Active unknownun [place] claude zaprine ty to 04-10 known College adverse 00:00: of reaction 00 Medicin s to e drug CELECOXI DRUG Active MD B INGREDI 04-10 Anderso 00:00: n 00 CEPHALOS Drug Active MD PORINS Class 04-10 Anderso 00:00: n 00 CYCLOBEN DRUG Active MD ZAPRINE INGREDI 04-10 Anderso 00:00: n 00 TIZANIDI DRUG Active MD NE INGREDI 04-10 Anderso 00:00: n 00 METOCLOP DRUG Active Low Other MD RAMIDE INGREDI 04-10 Anderso HCL 00:00: n 00 Penicill Allergy Active Hives Throat [facility] ins to 03-01 closes up Health substanc 00:00: e 00 Penicill Propensi Active Throat Univer s ins ty to 03-01 closes up ity of adverse 00:00: [place] reaction 00 MD [facility] Tramadol Propensi Active Shortness Of Throat Univers ty to Breath 03-01 closes up ity of adverse 00:00: [place] reaction 00 MD [facility] Penicill Propensi Active Hives Throat Sneha ins ty to 03-01 closes [place] adverse 00:00: upThroat - reaction 00 closes Externa s upThroat l closes upThroat closes up Penicill Propensi Active Hives Throat Mac ins ty to 03-01 closes College adverse 00:00: upThroat of reaction 00 closes up Medic in s to e drug Tramadol Propensi Active Shortness Of Throat Mac ty to Breath 03-01 closes College adverse 00:00: upThroat of reaction 00 closes up Medic in s to e drug PENICILL Drug Active High INS Class 03-01 Anderso 00:00: n 00 TRAMADOL DRUG Active High Sob 2015- MD INGREDI 03-01 Anderso 00:00: n 00 LITHIUM Drug Active Other-Cmnt Unive rs ANALOGUE Class 6-24 ity of S 00:00: [place] 00 [facility] SULFAMET DRUG Active Hives Univers HOXAZOLE 6-24 ity of -TRIMETH 00:00: [place] OPRIM 00 Medical Branch TETRACYC DRUG Active Hives Univers LINE INGREDI 6-24 ity of 00:00: [place] 00 [facility] DIVALPRO DRUG Active Low Palpitations Un niru EX INGREDI 624 ity of SODIUM 00:00: [place] 00 [facility] LORAZEPA DRUG Active Low Anxiety Univers M INGREDI 6-24 ity of 00:00: [place] 00 [facility] VALPROIC DRUG Active Low Palpitations Un niru ACID INGREDI 6-24 ity of 00:00: [place] 00 [facility] Tetracyc Propensi Active Hives Univer s line ty to 6-24 ity of adverse 00:00: [place] reaction 00 Medical s Branch Sulfamet Drug Active Hives Univers hoxazole Allergy 624 ity of -Trimeth 00:00: [place] oprim 00 Medical Branch Valproic Propensi Active Palpitations Not Univers Acid ty to 624 allergic ity of adverse 00:00: [place] reaction 00 Medical s Branch Levetira Allergy Active Rash [place] cetam to 24 Health substanc 00:00: e 00 Sulfamet Allergy Active Hives UT hoxazole to 24 Health -Trimeth substanc 00:00: oprim e 00 Cyclospo Propensi Active Hives Univer s rine ty to 624 ity of adverse 00:00: [place] reaction 00 MD [facility] Divalpro Propensi Active Palpitations Univers ex ty to 624 ity of adverse 00:00: [place] reaction 00 MD [facility]to [facility] Levetira Propensi Active Rash Univer s cetam ty to 624 ity of adverse 00:00: [place] reaction 00 MD [facility]to [facility] Closter Propensi Active Other (See Uni vers Analogue ty to Comments) 624 ity o f s adverse 00:00: [place] reaction 00 MD [facility]to [facility] Tetracyc Propensi Active Hives Univer s lines ty to 624 ity of adverse 00:00: [place] reaction 00 MD [facility] Alprazol Propensi Active Anxiety Unive rs am ty to 624 ity of adverse 00:00: [place] reaction 00 MD [facility] Lorazepa Propensi Active Anxiety Unive rs m ty to 624 ity of adverse 00:00: [place] reaction 00 MD alberto [facility] Sulfamet Propensi Active Hives Univer s hoxazole ty to 6-24 ity of -Trimeth adverse 00:00: [place] oprim reaction 00 MD [facility] Ciproflo Propensi Active Other (See Bladder U nivers xacin ty to Comments) 6-24 infection ity of Hcl adverse 00:00: [place] reaction 00 MD alberto yoder [facility] Cyclospo Propensi Active Hives Sneha rine ty to 6-24 [place] adverse 00:00: - reaction 00 Externa s l Levetira Propensi Active Rash Sneha cetam ty to 01-20 [place] adverse 00:00: - reaction 00 Externa s l Closter Propensi Active Other Sneha ty to 01-20 [place] adverse 00:00: - reaction 00 Externa s l Lorazepa Propensi Active Anxiety Kelse y m ty to 01-20 [place] adverse 00:00: - reaction 00 Externa s l Tetracyc Propensi Active Hives Sneha lines ty to 01-20 [place] adverse 00:00: - reaction 00 Externa s l Valproic Propensi Active PALPITATIONS Sneha Acid ty to 01-20 [place] adverse 00:00: - reaction 00 Externa s l Alprazol Propensi Active Anxiety Kelse y am ty to 01-20 [place] adverse 00:00: - reaction 00 Externa s l Ciproflo Propensi Active Other "states Kelse y xacin ty to 01-20 bladder [place] Hydrochl adverse 00:00: infection - oride reaction 00 ""states Compliance Auditor a s bladder l infection "Bladder infection "states bladder infection " Levetira Propensi Active Rash [facility] cetam ty to 01-20 College adverse 00:00: of reaction 00 Medicin s to e drug Closter Propensi Active Other (See [place] claude ty to Comments) 01-20 College adverse 00:00: of reaction 00 Medicin s to e drug Lorazepa Propensi Active Anxiety Baylo r m ty to 01-20 College adverse 00:00: of reaction 00 Medicin s to e drug SULFAMET DRUG Active Hives MD HOXAZOLE 01-20 Anderso -TRIMETH 00:00: n OPRIM 00 CIPROFLO DRUG Active Other MD XACIN INGREDI 01-20 Anderso HCL 00:00: n 00 Sulfamet Propensi Active Hives [facility] hoxazole ty to 01-20 College -Trimeth adverse 00:00: of oprim reaction 00 Medicin s to e drug CYCLOSPO DRUG Active Hives MD RINE INGREDI 01-20 Anderso 00:00: n 00 LITHIUM Drug Active Other MD ANALOGUE Class 01-20 Anderso S 00:00: n 00 TETRACYC Drug Active Hives MD LINES Class 01-20 Anderso 00:00: n 00 ALPRAZOL DRUG Active Low Anxiety AM INGREDI 01-20 Anderso 00:00: n 00 LORAZEPA DRUG Active Low Anxiety MD M INGREDI 01-20 Anderso 00:00: n 00 DIVALPRO DRUG Active Low Palpitations MD EX 01-20 Anderso 00:00: n 00 LEVETIRA DRUG Active Low Rash MD CETAM INGREDI 01-20 Anderso 00:00: n 00 Tetracyc Propensi Active Hives [facility] lines & ty to 01-20 College Related adverse 00:00: of reaction 00 Medicin s to e drug Alprazol Propensi Active Anxiety Baylo r am ty to 01-20 [place] adverse 00:00: of reaction 00 Medicin s to e drug Valproic Propensi Active Palpitations [facility] Acid ty to 01-20 College adverse 00:00: of reaction 00 Medicin s to e drug Cyclospo Propensi Active Hives [facility] rine ty to 01-20 [place] adverse 00:00: of reaction 00 Medicin s to e drug Penicill Allergy Active [facility] (finding ans [facility] sulfa [facility]ergy Active [facility]finding [facility] Family History Family Member Diagnosis Comments Start Date Stop Date Source Natural father -Other cancer [facility] MD Driver [facility] Center Natural father Hypertension [facility] [place] [facility] Natural father Melanoma [facility] MD [facility] Natural [facility] Natural father Sarcoma [facility] Maternal [facility] MD Driver [facility] Cancer Center Maternal Colon cancer [place] [facility] MD [facility] Center Maternal Graves' disease [facility] MD [facility] [place] Maternal Head and neck [facility] M[facility] Skin cancer [facility] Maternal Thyroid cancer [facility] Natural mother [facility]' [facility] Natural mother Melanoma [facility] MD Driver [facility] Cancer Center Natural mother [facility] Natural mother Skin cancer [facility] MD Driver [facility] Paternal aunt -Unknown [facility] Paternal aunt Colon cancer [facility] [place] [facility] Paternal aunt Ovarian cancer [facility] MD Driver son Cancer Center Paternal aunt Kidney cancer [facility] [place] MD [facility] Paternal Lung cancer [facility] [place] Paternal Mesothelioma [facility] Paternal Multiple Myeloma [facility] Paternal Bile duct cancer [facility] Paternal Liver cancer [facility] Paternal Stomach cancer [facility] Paternal uncle Brain cancer [facility] [place] MD Driver [facility] Cancer Center Natural sister -Unknown [facility] Natural sister Graves' disease [facility] [place] [facility] Natural sister [facility]ine [facility] Natural sister Vaginal [facility] Social History Social Habit Start Date Stop Date Quantity Comments Source History of tobacco 2007-07-30 Passive smoker Un iversity of use 00:00:00 [facility] Gender identity Sneha eli - External Sexual orientation Sneha Funez - External History [facility] Alcohol Std Drinks History [facility] Alcohol Comment Exposure to 2022-06-20 2022-06-30 Not sure University of SARS-CoV-2 (event) 00:00:00 08:28:00 [facility] History of Social 2022-05-31 2022-05-31 Sneha Funez - function 00:00:00 00:00:00 External Alcohol intake 2021-12-16 2021-12-16 Current University of 00:00:00 00:00:00 non-drinker of [facility] (finding) Cigarettes smoked 2021-09-26 2021-09-26 Univers ity of current (pack per 00:00:00 00:00:00 [place] Mateo Armendariz ) - Reported Cancer Ce nter Cigarette 2021-09-26 2021-09-26 University of pack-years 00:00:00 00:00:00 [place] MD [facility] Tobacco use and 2021-09-26 2021-09-26 Smokeless Universit y of exposure 00:00:00 00:00:00 tobacco non-user [place] [facility] History SDOH 2021-07-12 2021-07-12 1 [facility] [...] 00:00:00 00:00:00 [birth year] At [birth year] [facility]ational 00:00:00 00:00:00 [facility] Smoking Status Start Date Stop Date Source Tobacco smoking [facility] consumption unknown Smokes tobacco daily 2022-05-31 00:00:00 Sneha Funez - External Ex-smoker 2022-02-21 00:00:00 2022-02-21 [facility] 00:00:00 [facility] Never smoked tobacco [facility] Medications Ordered Filled Start Stop Current Ordering Indication Dosage Frequency Signature Comments Components Source Medication Medication Date Date Medication? Clinician (SIG) Name Name Semaglutide Yes [id number] .5mg Inject 0.5 Sneha (0.25 or 5-22 3 mg into Seybold 0.5 00:00: the skin - mg/dose) 2 00 once a Externa mg/3 mL SQ week l Solution Pen-Injecto r Carvedilol 0 Yes [id number] 12.5mg Take 1 Sneha 12.5 MG 5-16 tablet Seybold oral Tablet 00:00: (12.5 mg - 00 total) by Externa mouth in l the morning and 1 tablet (12.5 mg total) in the evening. Take with meals. Promethazin Yes [id number] TAKE ONE Sneha e HCl 5-15 (1) Seybold (PHENERGAN) 00:00: TABLET(S) - 25 MG oral 00 BY MOUTH Exter na Tablet EVERY l EIGHT HOURS NEEDED FOR NAUSEA. Quetiapine 0 Yes [id number] 50mg QD Take 1 Ke lsey Fumarate 50 4-26 tablet (50 Se ybold MG oral 00:00: mg total) - Tablet 00 by mouth Externa nightly as l needed Acetaminoph 2022- No 1{tbl} Q.[id number] Take 1 Sneha en-Codeine 4-14 04-14 [id number] tablet by Seybold 300-30 MG 16:10: 00:00 3D mouth - oral Tablet 51 :00 every 8 Exter na hours as l needed Tizanidine 2022-0 Yes 2mg Q.5D Take 1 Kelse y HCl 2 MG 4-14 capsule (2 Seybo ld oral 16:08: mg total) - Capsule 58 by mouth 2 Compliance Auditor a times l daily as needed for muscle spasms Tizanidine 2022-0 Yes 2mg Q.5D Take 1 Kelse y HCl 2 MG 4-14 capsule (2 Seybo ld oral 16:08: mg total) - Capsule 58 by mouth 2 Compliance Auditor a times l daily as needed for muscle spasms Nortriptyli 0 2022- No 25mg QD Take 1 Smith sey ne HCl 25 4-14 04-14 capsule Seybol d MG oral 16:04: 00:00 (25 mg - Capsule 55 :00 total) by Externa mouth l nightly as needed for sleep Promethazin 2022-0 Yes [id number] 25mg Q.[id number] Take 1 Sneha e HCl 4-14 [id number] tablet (25 Se ybold (PHENERGAN) 00:00: 3D mg total) - 25 MG oral 00 by mouth Exter na Tablet every 8 l hours as needed for nausea Nortriptyli Yes [id number] 50mg QD Take 1 K elsey ne HCl 50 4-14 capsule Seybold MG oral 00:00: (50 mg - Capsule 00 total) by Externa mouth l nightly as needed (insomnia) Ibuprofen 0 Yes [id number] 400mg Q.25D Take 2 Sneha 200 MG oral 4-14 capsules Seyb old Capsule 00:00: (400 mg - 00 total) by Externa mouth l every 6 hours as needed for pain HYDROcodone Yes [id number] 1{tbl} Q.[id number] Take 1 Sneha -Acetaminop 4-14 [id number] tablet by Seybold hen (NORCO) 00:00: 3D mouth - 5-325 MG 00 every 8 Externa oral Tablet hours as l needed for pain Nortriptyli Yes [id number] 50mg QD Take 1 K elsey ne HCl 50 4-14 capsule Seybold MG oral 00:00: (50 mg - Capsule 00 total) by Externa mouth l nightly as needed (insomnia) Ibuprofen Yes [id number] 400mg Q.25D Take 2 Sneha 200 MG oral 4-14 capsules Seyb old Capsule 00:00: (400 mg - 00 total) by Externa mouth l every 6 hours as needed for pain HYDROcodone 0 Yes [id number] 1{tbl} Q.[id number] Take 1 Sneha -Acetaminop 4-14 [id number] tablet by Seybold hen (NORCO) 00:00: 3D mouth - 5-325 MG 00 every 8 Externa oral Tablet hours as l needed for pain Quetiapine 2022-0 2022- No TAKE ONE Ke lsey Fumarate 50 4-02 -14 (1) Seybold MG oral 00:00: 00:00 TABLET(S) - Tablet 00 :00 BY MOUTH Externa ONCE A DAY l AT BEDTIME. Blood 2022-0 Yes [id number] Check BS Naty ey Glucose 3-27 twice Seybold Monitoring 00:00: daily - Suppl 00 Externa (FreeStyle l Lite) does not apply Device Glucose 2022-0 Yes [id number] 1{each} 1 each by Sneha Blood in 3-27 other Seybold vitro Strip 00:00: route - 00 daily Externa Check BS l twice daily Blood 2022-0 Yes [id number] Check BS Naty ey Glucose -27 twice Seybold Monitoring 00:00: daily - Suppl 00 Externa (FreeStyle l Lite) does not apply Device Glucose 2022-0 Yes [id number] 1{each} 1 each by Sneha Blood in 3-27 other Seybold vitro Strip 00:00: route - 00 daily Externa Check BS l twice daily Promethazin 2022- No [id number] 25mg Q.[id number] Take 1 Sneha e HCl 10-23- [id number] tablet (25 S eybold (PHENERGAN) 00:00: 00:00 3D mg total) - 25 MG oral 00 :00 by mouth Exter na Tablet every 8 l hours as needed for nausea Ondansetron 2022- No [id number] 4mg Q.25D Take 1 Sneha (ZOFRAN) 4 10-13 tablet (4 Sey bold MG oral 00:00: 00:00 mg total) - TABLET 00 :00 by mouth Externa DISPERSIBLE every 6 l hours as needed Semaglutide 2022-0 Yes [id number] .25mg Inject Sneha (0.25 or 3-14 104 0.25 mg Seybold 0.5 00:00: into the - mg/dose) 2 00 skin once Exte rna mg/1.5 mL a week l SQ Solution Pen-Injecto r Semaglutide 0 2022- No [id number] .25mg Inject Sneha (0.25 or 3-14 05- 104 0.25 mg Seybold 0.5 00:00: 00:00 into the - mg/dose) 2 00 :00 skin once Exte rna mg/1.5 mL a week l SQ Solution Pen-Injecto r Acetaminoph 2022-0 Yes 1{tbl} Q.[id number] Take 1 Sneha en-Codeine 10-09 [id number] tablet by Seybraciel 300-30 MG 15:06: 3D mouth - oral Tablet 17 every 8 Exter na hours as l needed Methocarbam 2023-0 2022- No Take by Angel bee (ROBAXIN 3-13 03-13 mouth Seybol d OR) 15:06: 00:00 - 17 :00 Externa l Budeson-Gly 2023-0 Yes [id number] 2{puff} Inhale 2 Sneha copyrrol-Fo 3-10 puffs into Se ybold rmoterol 00:00: the lungs - (Breztri 00 2 times Externa Aerosphere) daily l 160-9-4.8 MCG/ACT inhalation Aerosol Albuterol 2023-0 Yes [id number] 2{puff} Q.25D Inhale 2 Sneha HFA 108 (90 3-10 puffs into Se ybold Base) 00:00: the lungs - MCG/ACT IN 00 every 6 Compliance Auditor a AERS hours as l needed Budeson-Gly 2023-0 Yes [id number] 2{puff} Inhale 2 Sneha copyrrol-Fo 3-10 puffs into Se ybold rmoterol 00:00: the lungs - (Breztri 00 2 times Externa Aerosphere) daily l 160-9-4.8 MCG/ACT inhalation Aerosol Albuterol 3-0 Yes [id number] 2{puff} Q.25D Inhale 2 Sneha HFA 108 (90 3-10 puffs into Se ybold Base) 00:00: the lungs - MCG/ACT IN 00 every 6 Compliance Auditor a AERS hours as l needed Budeson-Gly 2023-0 Yes [id number] 2{puff} Inhale 2 Sneha copyrrol-Fo 3-10 puffs into Se ybold rmoterol 00:00: the lungs - (Breztri 00 2 times Externa Aerosphere) daily l 160-9-4.8 MCG/ACT inhalation Aerosol Albuterol 2023-0 Yes [id number] 2{puff} Q.25D Inhale 2 Sneha HFA 108 (90 3-10 puffs into Se ybold Base) 00:00: the lungs - MCG/ACT IN 00 every 6 Compliance Auditor a AERS hours as l needed Budeson-Gly 2023-0 Yes [id number] 2{puff} Inhale 2 Sneha copyrrol-Fo 3-10 puffs into Se ybold rmoterol 00:00: the lungs - (Breztri 00 2 times Externa Aerosphere) daily l 160-9-4.8 MCG/ACT inhalation Aerosol Albuterol Yes [id number] 2{puff} Q.25D Inhale 2 Sneha HFA 108 (90 3-10 puffs into Se ybold Base) 00:00: the lungs - MCG/ACT IN 00 every 6 Compliance Auditor a AERS hours as l needed Azithromyci 2022- No [id number] Take 2 Sneha n 250 MG 3-10 03-16 tablets by Seyb old oral Tablet 00:00: 04:59 mouth on - :00 day 1 then Externa 1 tablet l by mouth daily for 4 days thereafter . Azithromyci 2022-0 2022- No [id number] Take 2 Sneha n 250 MG 3-10 03-13 tablets by Seyb old oral Tablet 00:00: 00:00 mouth on - 00 :00 day 1 then Externa 1 tablet l by mouth daily for 4 days thereafter . Atorvastati 2022-0 Yes [id number] 10mg Take 1 Sneha n Calcium 3-09 tablet (10 Seyb old 10 MG oral 00:00: mg total) - Tablet 00 by mouth Externa daily l Atorvastati 2022-0 Yes [id number] 10mg Take 1 Sneha n Calcium 3-09 tablet (10 Seyb old 10 MG oral 00:00: mg total) - Tablet 00 by mouth Externa daily l Atorvastati 2022-0 Yes [id number] 10mg Take 1 Sneha n Calcium 3-09 tablet (10 Seyb old 10 MG oral 00:00: mg total) - Tablet 00 by mouth Externa daily l Atorvastati 2022-0 Yes [id number] 10mg Take 1 Sneha n Calcium 3-09 tablet (10 Seyb old 10 MG oral 00:00: mg total) - Tablet 00 by mouth Externa daily l Dicyclomine 2022-0 Yes [id number] TAKE ONE Sneha HCl 10 MG 3-07 (1) Seybold oral 00:00: CAPSULE(S) - Capsule 00 BY MOUTH Externa THREE l TIMES A DAY NEEDED. Dicyclomine 2022-0 Yes [id number] TAKE ONE Sneha HCl 10 MG 3-07 (1) Seybold oral 00:00: CAPSULE(S) - Capsule 00 BY MOUTH Externa THREE l TIMES A DAY NEEDED. Dicyclomine 2023-0 Yes [id number] TAKE ONE Sneha HCl 10 MG 3-07 (1) Seybold oral 00:00: CAPSULE(S) - Capsule 00 BY MOUTH Externa THREE l TIMES A DAY NEEDED. Dicyclomine 2023-0 Yes [id number] TAKE ONE Sneha HCl 10 MG 3-07 (1) Seybold oral 00:00: CAPSULE(S) - Capsule 00 BY MOUTH Externa THREE l TIMES A DAY NEEDED. Methocarbam 2023-0 Yes [id number] 1{tbl} Take 1 Sneha ol 750 MG 3-06 tablet by Seybo ld oral Tablet 00:00: mouth - 00 every 8 Externa hours l Methocarbam 2023-0 Yes [id number] 1{tbl} Take 1 Sneha ol 750 MG 3-06 tablet by Seybo ld oral Tablet 00:00: mouth - 00 every 8 Externa hours l Methocarbam 2023-0 2023- No [id number] 1{tbl} Take 1 Sneha ol 750 MG 3-06 04-14 tablet by Seyb old oral Tablet 00:00: 00:00 mouth - 00 :00 every 8 Externa hours l Quetiapine 2023-0 Yes TAKE ONE Smith sey Fumarate 50 3-03 (1) Seybold MG oral 00:00: TABLET(S) - Tablet 00 BY MOUTH Externa AT l BEDTIME. Quetiapine 2023-0 Yes TAKE ONE Smith sey Fumarate 50 3-03 (1) Seybold MG oral 00:00: TABLET(S) - Tablet 00 BY MOUTH Externa AT l BEDTIME. Gabapentin 2023-0 Yes 900mg Take 3 Naty ey 300 MG oral 2-27 capsules Seyb old Capsule 00:00: (900 mg - 00 total) by Externa mouth 3 l times daily Gabapentin 2023-0 Yes 900mg Take 3 Naty ey 300 MG oral 2-27 capsules Seyb old Capsule 00:00: (900 mg - 00 total) by Externa mouth 3 l times daily Gabapentin 2023-0 Yes 900mg Take 3 Naty ey 300 MG oral 2-27 capsules Seyb old Capsule 00:00: (900 mg - 00 total) by Externa mouth 3 l times daily Gabapentin 2023-0 Yes 900mg Take 3 Naty ey 300 MG oral 2-27 capsules Seyb old Capsule 00:00: (900 mg - 00 total) by Externa mouth 3 l times daily Carvedilol 2023-0 Yes [id number] TAKE ONE Sneha 12.5 MG 2-15 (1) Seybold oral Tablet 00:00: TABLET(S) - 00 BY MOUTH Externa TWICE A l DAY IN THE MORNING AND EVENING. TAKE WITH MEALS. Carvedilol 3-0 Yes [id number] TAKE ONE Sneha 12.5 MG 2-15 (1) Seybold oral Tablet 00:00: TABLET(S) - 00 BY MOUTH Externa TWICE A l DAY IN THE MORNING AND EVENING. TAKE WITH MEALS. Carvedilol 3-0 Yes [id number] TAKE ONE Sneha 12.5 MG 2-15 (1) Seybold oral Tablet 00:00: TABLET(S) - 00 BY MOUTH Externa TWICE A l DAY IN THE MORNING AND EVENING. TAKE WITH MEALS. Phenazopyri 3-0 Yes [id number] 100mg Q.[id number] Take 1 Sneha dine HCl 1-12 [id number] tablet Sey bold 100 MG oral 00:00: 3D (100 mg - Tablet 00 total) by Externa mouth 3 l times daily as needed for pain Phenazopyri 3-0 Yes [id number] 100mg Q.[id number] Take 1 Sneha dine HCl 1-12 [id number] tablet Sey bold 100 MG oral 00:00: 3D (100 mg - Tablet 00 total) by Externa mouth 3 l times daily as needed for pain Phenazopyri 3-0 Yes [id number] 100mg Q.[id number] Take 1 Sneha dine HCl 1-12 [id number] tablet Sey bold 100 MG oral 00:00: 3D (100 mg - Tablet 00 total) by Externa mouth 3 l times daily as needed for pain Phenazopyri 3-0 Yes [id number] 100mg Q.[id number] Take 1 Sneha dine HCl 1-12 [id number] tablet Sey bold 100 MG oral 00:00: 3D (100 mg - Tablet 00 total) by Externa mouth 3 l times daily as needed for pain Acetaminoph 0 Yes 1{tbl} Q.[id number] Take 1 Sneha en-Codeine 1-10 [id number] tablet by Seybold 300-30 MG 16:25: 3D mouth - oral Tablet 39 every 8 Exter na hours as l needed Methocarbam 0 Yes Take by Smith gilman ol (ROBAXIN 1-10 mouth Seybold OR) 16:25: - 39 Externa l Acetaminoph 2022-0 Yes 1{tbl} Q.[id number] Take 1 Sneha en-Codeine 1-10 [id number] tablet by Seybold 300-30 MG 16:25: 3D mouth - oral Tablet 39 every 8 Exter na hours as l needed Methocarbam 0 Yes Take by Smith gilman ol (ROBAXIN 1-10 mouth Seybold OR) 16:25: - 39 Externa l Fluticasone 0 2022- No [id number] 2{puff} Inhale 2 Sneha -Salmeterol 1-10 03-10 puffs into S eybold (Advair 00:00: 00:00 the lungs - HFA) 115-21 00 :00 2 times Exter na MCG/ACT daily l inhalation Aerosol Clindamycin Yes TAKE ONE Ke lsey HCl 150 MG 1-07 (1) Seybold oral 00:00: CAPSULE(S) - Capsule 00 BY MOUTH Externa EVERY SIX l HOURS. Clindamycin 2022-0 2022- No TAKE ONE K elsey HCl 150 MG 1-07 03-10 (1) Seybold oral 00:00: 00:00 CAPSULE(S) - Capsule 00 :00 BY MOUTH Externa EVERY SIX l HOURS. Gabapentin Yes 900mg Take 900 Ke lsey 300 MG oral 1-04 mg by Seybold Capsule 00:00: mouth 3 - 00 times Externa daily l Budesonide, 2021-07 Yes [id number] .5mg Take 2 mL Sneha Inhalation, 2- [id number] (0.5 mg Sey bold 0.5 MG/2ML 00:00: total) by - inhalation 00 nebulizati Ext edna Suspension on 2 times l daily Azithromyci 2021-07 2023- No [id number] Take 2 Sneha n 250 MG 09-20 [id number] tablets by Se ybold oral Tablet 00:00: 00:00 mouth on - 00 :00 day 1 then Externa 1 tablet l by mouth daily for 4 days thereafter . Fluticasone 2021-07 Yes 2{puff} Inhale 2 Sneha -Salmeterol 2-15 puffs into Se ybold (Advair 00:00: the lungs - HFA) 115 00 2 times Exter na MCG/ACT daily l inhalation Aerosol Montelukast 2021-07 Yes 10mg Take 1 Anty ey (SINGULAIR) 2-15 tablet (10 Se ybold 10 MG oral 00:00: mg total) - Tablet 00 by mouth Externa tablet nightly l Fluticasone 2021-07 Yes 2{puff} Inhale 2 Sneha -Salmeterol 2-15 puffs into Se ybold (Advair 00:00: the lungs - HFA) 11521 00 2 times Exter na MCG/ACT daily l inhalation Aerosol Montelukast 2021-07 Yes 10mg Take 1 Naty ey (SINGULAIR) 2-15 tablet (10 Se ybold 10 MG oral 00:00: mg total) - Tablet 00 by mouth Externa tablet nightly l Montelukast 2021-07 Yes 10mg Take 1 Naty ey (SINGULAIR) 2-15 tablet (10 Se ybold 10 MG oral 00:00: mg total) - Tablet 00 by mouth Externa tablet nightly l Montelukast 2021-07 Yes 10mg Take 1 Naty ey (SINGULAIR) 2-15 tablet (10 Se ybold 10 MG oral 00:00: mg total) - Tablet 00 by mouth Externa tablet nightly l Montelukast 2021-07 Yes 10mg Take 1 Naty ey (SINGULAIR) 2-15 tablet (10 Se ybold 10 MG oral 00:00: mg total) - Tablet 00 by mouth Externa tablet nightly l Montelukast 2021-07 Yes 10mg Take 1 Naty ey (SINGULAIR) 2-15 tablet (10 Se ybold 10 MG oral 00:00: mg total) - Tablet 00 by mouth Externa tablet nightly l Acetaminoph 2021-07 Yes 1{tbl} Q.[id number] Take 1 Sneha en-Codeine 2-13 [id number] tablet by Seybold 300-30 MG 15:27: 3D mouth - oral Tablet 14 every 8 Exter na hours as l needed Methocarbam 2021-07 Yes Take by Smith gilman ol (ROBAXIN 2-13 mouth Seybold OR) 15:27: - 14 Externa l Acetaminoph 2021-07 Yes 1{tbl} Q.[id number] Take 1 Sneha en-Codeine 2-13 [id number] tablet by Seybold 300-30 MG 15:27: 3D mouth - oral Tablet 14 every 8 Exter na hours as l needed Methocarbam 2021-07 Yes Take by Smith markhamy ol (ROBAXIN 2-13 mouth Seybold OR) 15:27: - 14 Externa l Eszopiclone 2021-07 Yes Sneha 2 MG oral 2-13 Seybold Tablet 00:00: - 00 Externa l Eszopiclone 2021-07 Yes Sneha 2 MG oral 2-13 Seybold Tablet 00:00: - 00 Externa l Eszopiclone 2021-07 Yes Sneha 2 MG oral 2-13 Seybold Tablet 00:00: - 00 Externa l Eszopiclone 2021-07- No Kelse y 2 MG oral 2-13 04-14 Seybold Tablet 00:00: 00:00 - 00 :00 Externa l HYDROcodone 2021-07 Yes Sneha -Acetaminop [...] 2021-07 Yes Sneha -Acetaminop 2-12 Seybold hen (LedgerX) 00:00: - 5-325 MG 00 Externa oral Tablet l Methocarbam 2021-07 Yes 1{tbl} Take 1 Ke lsey ol 500 MG 2-12 tablet by Seybo ld oral Tablet 00:00: mouth - 00 every 12 Externa hours l HYDROcodone 2021-07 Yes Senha -Acetaminop 2-12 Seybold hen (LedgerX) 00:00: - 5-325 MG 00 Externa oral Tablet l Methocarbam 2021-07 Yes 1{tbl} Take 1 Ke lsey ol 500 MG 2-12 tablet by Seybo ld oral Tablet 00:00: mouth - 00 every 12 Externa hours l HYDROcodone 2021-07 Yes Sneha -Acetaminop 2-12 Seybold hen (LedgerX) 00:00: - 5-325 MG 00 Externa oral Tablet l Methocarbam 2021-07 Yes 1{tbl} Take 1 Ke lsey ol 500 MG 2-12 tablet by Seybo ld oral Tablet 00:00: mouth - 00 every 12 Externa hours l HYDROcodone 2021-07- No Kelse y -Acetaminop 2-12 04-14 Seybold hen (LedgerX) 00:00: 00:00 - 5-325 MG 00 :00 Externa oral Tablet l Methocarbam 2021-07 2023- No 1{tbl} Take 1 K elsey ol 500 MG 2-12 04-14 tablet by Seyb old oral Tablet 00:00: 00:00 mouth - 00 :00 every 12 Externa hours l Quetiapine 2021-07 [...] 00 Externa l Acetaminoph 2021-07 Yes 1{tbl} Q.[id number] Take 1 Sneha en-Codeine 2- [id number] tablet by Dee Dee 300-30 MG 15:45: 3D mouth - oral Tablet 59 every 8 Exter na hours as l needed Methocarbam 2021-07 Yes Take by Smith bee (ROBAXIN 2-07 mouth Seybold OR) 15:45: - 59 Externa l Cholecalcif 2021-07- No 1999U Take 2,000 Sneha [place] 50 MCG 2- 12-07 units by Mukul wallace (1999 UT) 15:45: 00:00 mouth - oral Tablet 37 :00 Externa l Pregabalin 2021-07- No 150mg Take 150 K elsey 150 MG oral 2 12-07 mg by oBol d Capsule 15:45: 00:00 mouth 3 - 37 :00 times Externa daily l predniSONE 2021-07 Yes [id number] 10mg Take 1 K elsey (DELTASONE) 2-07 tablet (10 Se ybold 10 MG oral 00:00: mg total) - tablet 00 by mouth Externa daily l Budesonide, 2021-07 Yes [id number] .5mg Take 2 mL Sneha Inhalation, 2-07 (0.5 mg Seybo ld 0.5 MG/2ML 00:00: total) by - inhalation 00 nebulizati Ext edna Suspension on 2 times l daily FLUTICASONE 2021-07 Yes [id number] 50ug Use 1 K elsey PROPIONATE, 2-07 spray (50 Sey bold NASAL, 50 00:00: mcg total) - MCG/ACT 00 in each Externa nasal nostril l Suspension daily predniSONE 2021-07 Yes [id number] 10mg Take 1 K elsey (DELTASONE) 2-07 tablet (10 Se ybold 10 MG oral 00:00: mg total) - tablet 00 by mouth Externa daily l Budesonide, 2021-07 Yes [id number] .5mg Take 2 mL Sneha Inhalation, 2-07 (0.5 mg Seybo ld 0.5 MG/2ML 00:00: total) by - inhalation 00 nebulizati Ext edna Suspension on 2 times l daily FLUTICASONE 2021-07 Yes [id number] 50ug Use 1 K elsey PROPIONATE, 2-07 spray (50 Sey bold NASAL, 50 00:00: mcg total) - MCG/ACT 00 in each Externa nasal nostril l Suspension daily predniSONE 2021-07 Yes [id number] 10mg Take 1 K elsey (DELTASONE) 2-07 tablet (10 Se ybold 10 MG oral 00:00: mg total) - tablet 00 by mouth Externa daily l FLUTICASONE 2021-07 Yes [id number] 50ug Use 1 K elsey PROPIONATE, 2-07 spray (50 Sey bold NASAL, 50 00:00: mcg total) - MCG/ACT 00 in each Externa nasal nostril l Suspension daily FLUTICASONE 2021-07 Yes [id number] 50ug Use 1 K elsey PROPIONATE, 2-07 spray (50 Sey bold NASAL, 50 00:00: mcg total) - MCG/ACT 00 in each Externa nasal nostril l Suspension daily FLUTICASONE 2021-07 Yes [id number] 50ug Use 1 K elsey PROPIONATE, 2-07 spray (50 Sey bold NASAL, 50 00:00: mcg total) - MCG/ACT 00 in each Externa nasal nostril l Suspension daily FLUTICASONE 2021-07 Yes [id number] 50ug Use 1 K elsey PROPIONATE, 2-07 spray (50 Sey bold NASAL, 50 00:00: mcg total) - MCG/ACT 00 in each Externa nasal nostril l Suspension daily FLUTICASONE 2021-07 Yes [id number] 50ug Use 1 K elsey PROPIONATE, 2-07 spray (50 Sey bold NASAL, 50 00:00: mcg total) - MCG/ACT 00 in each Externa nasal nostril l Suspension daily FLUTICASONE 2021-07 Yes [id number] 50ug Use 1 K elsey PROPIONATE, 2-07 spray (50 Sey bold NASAL, 50 00:00: mcg total) - MCG/ACT 00 in each Externa nasal nostril l Suspension daily predniSONE 2021-07- No [id number] 10mg Take 1 Sneha (DELTASONE) 09-05 01-10 tablet (10 S eybold 10 MG oral 00:00: 00:00 mg total) - tablet 00 :00 by mouth Externa daily l Budesonide, 2021-07- No [id number] .5mg Take 2 mL Sneha Inhalation, 09-05 12-15 (0.5 mg Seyb old 0.5 MG/2ML 00:00: 00:00 total) by - inhalation 00 :00 nebulizati Ext edna Suspension on 2 times l daily Carvedilol 2021-07 Yes [id number] 12.5mg Take 1 Sneha 12.5 MG 1-28 tablet Seybold oral Tablet 00:00: (12.5 mg - 00 total) by Externa mouth in l the morning and 1 tablet (12.5 mg total) in the evening. Take with meals. Arformotero 2021-07 Yes [id number] 15ug Inhale 2 Sneha l Tartrate 1-28 mL (15 mcg Sey bold (Brovana) 00:00: total) - 15 MCG/2ML 00 into the Exter na inhalation lungs 2 l Inhalant times Solution daily Carvedilol 2021-07 Yes [id number] 12.5mg Take 1 Sneha 12.5 MG 1-28 tablet Seybold oral Tablet 00:00: (12.5 mg - 00 total) by Externa mouth in l the morning and 1 tablet (12.5 mg total) in the evening. Take with meals. Arformotero 2021-07 Yes [id number] 15ug Inhale 2 Sneha l Tartrate 1-28 mL (15 mcg Sey bold (Brovana) 00:00: total) - 15 MCG/2ML 00 into the Exter na inhalation lungs 2 l Inhalant times Solution daily Carvedilol 2021-07 Yes [id number] 12.5mg Take 1 Sneha 12.5 MG 1-28 tablet Seybold oral Tablet 00:00: (12.5 mg - 00 total) by Externa mouth in l the morning and 1 tablet (12.5 mg total) in the evening. Take with meals. Carvedilol 2021-07 Yes [id number] 12.5mg Take 1 Sneha 12.5 MG 1-28 tablet Seybold oral Tablet 00:00: (12.5 mg - 00 total) by Externa mouth in l the morning and 1 tablet (12.5 mg total) in the evening. Take with meals. Arformotero 2021-07- No [id number] 15ug Inhale 2 Sneha l Tartrate 1-28 12-15 mL (15 mcg Se ybold (Brovana) 00:00: 00:00 total) - 15 MCG/2ML 00 :00 into the Exter na inhalation lungs 2 l Inhalant times Solution daily Carvedilol 2021-07- No [id number] 12.5mg Take 2 Sneha (Coreg) 08-26 12-07 [...] and Vomiting (N/V), PACU gadobenate 2021-07- No [id number] .2mL/kg 18 mL (0.2 [facility] dimeglumine 1-18 11-18 mL/kg ?90 it y of (MULTIHANCE 16:30: 16:15 kg), [place] -20 mL) 00 :00 Intravenou Medica l injection s, ONCE, 1 Bran ch 18 mL dose, On Sun06/16/22 at 1030, Routine phenazopyri 2021-07 Yes 100mg Take 100 U nivers dine 100 mg 1-18 mg by ity of tablet 11:40: mouth. [place] 08 [facility] carvediloL 2021-07 Yes 6.25mg Take 6.25 [facility] 6.25 mg 1-18 mg by ity of tablet 11:40: mouth in [place] 08 the Medical morning Branch and 6.25 mg in the evening. Take with meals. phenazopyri 2021-07 Yes 100mg Take 100 U nivers dine 100 mg 1-18 mg by ity of tablet 11:40: mouth. [address] carvediloL 2021-07 Yes 6.25mg Take 6.25 [facility] 6.25 mg 1-18 mg by ity of tablet 11:40: mouth in [address] and 6.25 mg in the evening. Take with meals. phenazopyri 2021-07 Yes 100mg Take 100 U nivers dine 100 mg 1-18 mg by ity of tablet 11:40: mouth. [address] carvediloL 2021-07 Yes 6.25mg Take 6.25 [facility] 6.25 mg 1-18 mg by ity of tablet 11:40: mouth in [address] and 6.25 mg in the evening. Take with meals. phenazopyri 2021-07 Yes 100mg Take 100 U nivers dine 100 mg 1-18 mg by ity of tablet 11:40: mouth. [address] carvediloL 2021-07 Yes 6.25mg Take 6.25 [facility] 6.25 mg 1-18 mg by ity of tablet 11:40: mouth in [address] and 6.25 mg in the evening. Take with meals. phenazopyri 2021-07 Yes 100mg Take 100 U nivers dine 100 mg 1-18 mg by ity of tablet 11:40: mouth. [address] carvediloL 2021-07 Yes 6.25mg Take 6.25 [facility] 6.25 mg 1-18 mg by ity of tablet 11:40: mouth in [address] and 6.25 mg in the evening. Take with meals. carvediloL 2021-07 Yes 6.25mg Take 6.25 [facility] 6.25 mg 1-14 mg by ity of tablet 12:44: mouth in [address] and 6.25 mg in the evening. Take with meals. Phenazopyri 2021-07- No 100mg Q.[id number] Take 100 Sneha dine HCl 08-07 [id number] mg by Sey bold 100 MG oral 16:44: 00:00 3D mouth 3 - Tablet 56 :00 times Externa daily as l needed Phenazopyri 2021-07- No 100mg Q.[id number] Take 100 Sneha dine HCl 08-07 [id number] mg by Sey bold 100 MG oral 16:43: 00:00 3D mouth 3 - Tablet 22 :00 times Externa daily as l needed Dicyclomine 2021-07 No 10mg Q4H Take 10 mg Sneha HCl 10 MG 08-07 by mouth Seybo ld oral 16:27: 00:00 every 4 - Capsule 54 :00 hours as Externa needed l Esomeprazol 2021-07 No 40mg Take 40 mg Sneha e Magnesium 08-07 by mouth Sey bold 40 MG oral 16:27: 00:00 every - Delayed 54 :00 morning Externa Release (before l Capsule breakfast) Phenazopyri 2021-07 No 100mg Take 100 Sneha dine HCl 08-07 mg by Seybold 100 MG oral 16:24: 00:00 mouth - Tablet 36 :00 Externa l Fluconazole 2021-07 No 150mg Take 150 Sneha 100 MG oral 08-07 mg by Seybol d Tablet 15:41: 00:00 mouth - 19 :00 daily Externa l Carvedilol 2021-07 Yes [id number] 6.25mg Take 1 Sneha (Coreg) 08-07 tablet Seybold 6.25 MG 00:00: (6.25 mg - oral Tablet 00 total) by Ext edna mouth in l the morning and 1 tablet (6.25 mg total) in the evening. Take with meals. Esomeprazol 2021-07 Yes [id number] 20mg Take 1 Sneha e Magnesium 08-07 capsule Seybo ld 20 MG oral 00:00: (20 mg - Delayed 00 total) by Externa Release mouth l Capsule every morning (before breakfast) Dicyclomine 2021-07 Yes [id number] 10mg Q.[id number] Take 1 Sneha HCl 10 MG 08-07 [id number] capsule S eybold oral 00:00: 3D (10 mg - Capsule 00 total) by Externa mouth 3 l times daily as needed Gabapentin 2021-07 Yes [id number] 900mg Take 3 Sneha 300 MG oral 09 capsules Seyb old Capsule 00:00: (900 mg - 00 total) by Externa mouth 3 l times daily Arformotero 2021-07 Yes [id number] 15ug Inhale 2 Sneha l Tartrate 1-09 mL (15 mcg Sey bold (Brovana) 00:00: total) - 15 MCG/2ML 00 into the Exter na inhalation lungs 2 l Inhalant times Solution daily Phenazopyri 2021-07 Yes [id number] 100mg Q.[id number] Take 1 Sneha dine HCl 1-09 [id number] tablet Sey bold 100 MG oral 00:00: 3D (100 mg - Tablet 00 total) by Externa mouth 3 l times daily as needed for pain Esomeprazol 2021-07 Yes [id number] 20mg Take 1 Sneha e Magnesium 1-09 capsule Seybo ld 20 MG oral 00:00: (20 mg - Delayed 00 total) by Externa Release mouth l Capsule every morning (before breakfast) Dicyclomine 2021-07 Yes [id number] 10mg Q.[id number] Take 1 Sneha HCl 10 MG 1-09 [id number] capsule S eybold oral 00:00: 3D (10 mg - Capsule 00 total) by Externa mouth 3 l times daily as needed Phenazopyri 2021-07 Yes [id number] 100mg Q.[id number] Take 1 Sneha dine HCl 1-09 [id number] tablet Sey bold 100 MG oral 00:00: 3D (100 mg - Tablet 00 total) by Externa mouth 3 l times daily as needed for pain Esomeprazol 2021-07 Yes [id number] 20mg Take 1 Sneha e Magnesium 1-09 capsule Seybo ld 20 MG oral 00:00: (20 mg - Delayed 00 total) by Externa Release mouth l Capsule every morning (before breakfast) Dicyclomine 2021-07 Yes [id number] 10mg Q.[id number] Take 1 Sneha HCl 10 MG 1-09 [id number] capsule S eybold oral 00:00: 3D (10 mg - Capsule 00 total) by Externa mouth 3 l times daily as needed Phenazopyri 2021-07 Yes [id number] 100mg Q.[id number] Take 1 Sneha dine HCl 1-09 [id number] tablet Sey bold 100 MG oral 00:00: 3D (100 mg - Tablet 00 total) by Externa mouth 3 l times daily as needed for pain Esomeprazol 2021-07 Yes [id number] 20mg Take 1 Sneha e Magnesium 1-09 capsule Seybo ld 20 MG oral 00:00: (20 mg - Delayed 00 total) by Externa Release mouth l Capsule every morning (before breakfast) Dicyclomine 2021-07 Yes [id number] 10mg Q.[id number] Take 1 Sneha HCl 10 MG -09 [id number] capsule S eybold oral 00:00: 3D (10 mg - Capsule 00 total) by Externa mouth 3 l times daily as needed Phenazopyri 2021-07 Yes [id number] 100mg Q.[id number] Take 1 Sneha dine HCl -09 [id number] tablet Sey bold 100 MG oral 00:00: 3D (100 mg - Tablet 00 total) by Externa mouth 3 l times daily as needed for pain Esomeprazol 2021-07 Yes [id number] 20mg Take 1 Sneha e Magnesium 1-09 capsule Seybo ld 20 MG oral 00:00: (20 mg - Delayed 00 total) by Externa Release mouth l Capsule every morning (before breakfast) Dicyclomine 2021-07 Yes [id number] 10mg Q.[id number] Take 1 Sneha HCl 10 MG -09 [id number] capsule S eybold oral 00:00: 3D (10 mg - Capsule 00 total) by Externa mouth 3 l times daily as needed Phenazopyri 2021-07 Yes [id number] 100mg Q.[id number] Take 1 Sneha dine HCl 1-09 [id number] tablet Sey bold 100 MG oral 00:00: 3D (100 mg - Tablet 00 total) by Externa mouth 3 l times daily as needed for pain Esomeprazol 2021-07 Yes [id number] 20mg Take 1 Sneha e Magnesium 1-09 capsule Seybo ld 20 MG oral 00:00: (20 mg - Delayed 00 total) by Externa Release mouth l Capsule every morning (before breakfast) Esomeprazol 2021-07 Yes [id number] 20mg Take 1 Sneha e Magnesium 1-09 capsule Seybo ld 20 MG oral 00:00: (20 mg - Delayed 00 total) by Externa Release mouth l Capsule every morning (before breakfast) Esomeprazol 2021-07 Yes [id number] 20mg Take 1 Sneha e Magnesium -09 capsule Seybo ld 20 MG oral 00:00: (20 mg - Delayed 00 total) by Externa Release mouth l Capsule every morning (before breakfast) Esomeprazol 2021-07 Yes [id number] 20mg Take 1 Sneha e Magnesium -09 capsule Seybo ld 20 MG oral 00:00: (20 mg - Delayed 00 total) by Externa Release mouth l Capsule every morning (before breakfast) Levalbutero 2021-07- No [id number] 1.25mg Q.[id number] Take 3 m L Sneha l HCl 1.25 08-07- [id number] (1.25 mg Seybold MG/3ML 00:00: 05:59 3D total) by - inhalation 00 :00 nebulizati Ext edna Inhalant on every 8 l Solution hours as needed for wheezing Levalbutero 2021-07- No [id number] 1.25mg Q.[id number] Take 3 m L Sneha l HCl 1.25 08-07- [id number] (1.25 mg Seybold MG/3ML 00:00: 00:00 3D total) by - inhalation 00 :00 nebulizati Ext edna Inhalant on every 8 l Solution hours as needed for wheezing Atorvastati 2021-07 Yes [id number] 10mg Take 1 Sneha n Calcium 1-04 tablet (10 Seyb old (Lipitor) 00:00: mg total) - 10 MG oral 00 by mouth Exter na Tablet daily l Atorvastati 2021-07 Yes [id number] 10mg Take 1 Sneha n Calcium 1-04 tablet (10 Seyb old (Lipitor) 00:00: mg total) - 10 MG oral 00 by mouth Exter na Tablet daily l Atorvastati 2021-07 Yes [id number] 10mg Take 1 Sneha n Calcium 1-04 tablet (10 Seyb old (Lipitor) 00:00: mg total) - 10 MG oral 00 by mouth Exter na Tablet daily l Atorvastati 2021-07 Yes [id number] 10mg Take 1 Sneha n Calcium 1-04 tablet (10 Seyb old (Lipitor) 00:00: mg total) - 10 MG oral 00 by mouth Exter na Tablet daily l Atorvastati 2021-07 Yes [id number] 10mg Take 1 Sneha n Calcium 1-04 [...] Tablet 52 Externa l Carvedilol 2021-07 Yes [id number] 3.125mg Take 1 Sneha (Coreg) - tablet Seybold 3.125 MG 00:00: (3.125 mg - oral Tablet 00 total) by Ext edna mouth in l the morning and 1 tablet (3.125 mg total) in the evening. Take with meals. Carvedilol 2021-07- No [id number] 3.125mg Take 1 Sneha (Coreg) 1-02 -09 tablet Seybold 3.125 MG 00:00: 00:00 (3.125 mg - oral Tablet 00 :00 total) by Ext edna mouth in l the morning and 1 tablet (3.125 mg total) in the evening. Take with meals. gabapentin 2021-07 Yes 900mg Take 3 Univ ers 300 mg 0-28 capsules ity of capsule 00:00: by mouth [place] 00 in the [facility] and 3 capsules at noon and 3 capsules in the evening. gabapentin 2021-1 Yes 900mg Take 3 Univ ers 300 mg 0-28 capsules ity of capsule 00:00: by mouth [place] 00 in the [facility] Branch and 3 capsules at noon and 3 capsules in the evening. gabapentin 2021-1 Yes 900mg Take 3 Univ ers 300 mg 0-28 capsules ity of capsule 00:00: by mouth [place] 00 in the [facility] Branch and 3 capsules at noon and 3 capsules in the evening. gabapentin 2021-1 Yes 900mg Take 3 Univ ers 300 mg 0-28 capsules ity of capsule 00:00: by mouth [place] 00 in the [facility] morning Branch and 3 capsules at noon and 3 capsules in the evening. gabapentin 2021-1 Yes 900mg Take 3 Univ ers 300 mg 0-28 capsules ity of capsule 00:00: by mouth [place] 00 in the [facility] Branch and 3 capsules at noon and 3 capsules in the evening. gabapentin 2021- Yes 900mg Take 3 Univ ers 300 mg 0-28 capsules ity of capsule 00:00: by mouth [place] 00 in the [facility] Branch and 3 capsules at noon and 3 capsules in the evening. gabapentin 2021-1 Yes 900mg Take 3 Univ ers 300 mg 0-28 capsules ity of capsule 00:00: by mouth [place] 00 in the [facility] Branch and 3 capsules at noon and 3 capsules in the evening. gabapentin 2021-1 Yes 900mg Take 3 Univ ers 300 mg 0-28 capsules ity of capsule 00:00: by mouth [place] 00 in the [facility] and 3 capsules at noon and 3 capsules in the evening. Gabapentin 2021- Yes 900mg Take 900 [place] 300 MG oral 0-28 mg by Seybold Capsule 00:00: mouth 3 - 00 times Externa daily l Gabapentin 2021-1 2- No 900mg Take 900 K elsey 300 MG oral 0-28 11-09 mg by Seybol d Capsule 00:00: 00:00 mouth 3 - 00 :00 times Externa daily l phenazopyri 2021-0 Yes 100mg Take 100 U nivers dine 100 mg 9-02 mg by ity of tablet 13:17: mouth. [address] phenazopyri 2021-0 Yes 100mg Take 100 U nivers dine 100 mg 9-02 mg by ity of tablet 13:17: mouth. [address] phenazopyri 2021-0 Yes 100mg Take 100 U nivers dine 100 mg 9-02 mg by ity of tablet 13:17: mouth. [address] phenazopyri 2021-0 Yes 100mg Take 100 U nivers dine 100 mg 9-02 mg by ity of tablet 13:17: mouth. [address] phenazopyri 2021-0 Yes 100mg Take 100 U nivers dine 100 mg 9-02 mg by ity of tablet 13:17: mouth. [address] phenazopyri 2021-0 Yes 100mg Take 100 U nivers dine 100 mg 9-02 mg by ity of tablet 13:17: mouth. [address] phenazopyri 2021-0 Yes 100mg Take 100 U nivers dine 100 mg 9-02 mg by ity of tablet 13:17: mouth. [address] phenazopyri 2021-0 Yes 100mg Take 100 U nivers dine 100 mg 9-02 mg by ity of tablet 13:17: mouth. [address] phenazopyri 2021-0 Yes 100mg Take 100 U nivers dine 100 mg 9-02 mg by ity of tablet 13:17: mouth. [address] phenazopyri 2021-0 Yes 100mg Take 100 U nivers dine 100 mg 9-02 mg by ity of tablet 13:17: mouth. [address] Furosemide 2-0 Yes Sneha 20 MG oral 8-24 Seybold Tablet 00:00: - 00 Externa l Furosemide 2022-0 2022- No Sneha 20 MG oral 8-24 11-09 Seybold Tablet 00:00: 00:00 - 00 :00 Externa l gabapentin 2022-0 Yes [id number] 600mg Take 2 U nivers 300 mg 8-13 capsules ity of capsule 00:00: by mouth in the Medical morning Branch and 2 capsules at noon and 2 capsules in the evening. gabapentin 2022-0 Yes [id number] 600mg Take 2 U nivers 300 mg 8-13 capsules ity of capsule 00:00: by mouth [place] in the Medical morning Branch and 2 capsules at noon and 2 capsules in the evening. gabapentin 2021-0 Yes [id number] 600mg Take 2 U nivers 300 mg 8-13 capsules ity of capsule 00:00: by mouth [place] 00 in the Medical morning Branch and 2 capsules at noon and 2 capsules in the evening. gabapentin 2-0 Yes [id number] 600mg Take 2 U nivers 300 mg 8-13 capsules ity of capsule 00:00: by mouth [place] 00 in the Medical morning Branch and 2 capsules at noon and 2 capsules in the evening. gabapentin 2021-0 Yes [id number] 600mg Take 2 U nivers 300 mg 8-13 capsules ity of capsule 00:00: by mouth [place] 00 in the Medical morning Branch and 2 capsules at noon and 2 capsules in the evening. gabapentin 2021-0 Yes [id number] 600mg Take 2 U nivers 300 mg 8-13 capsules ity of capsule 00:00: by mouth [place] 00 in the Medical morning Branch and 2 capsules at noon and 2 capsules in the evening. gabapentin 2021-0 Yes [id number] 600mg Take 2 U nivers 300 mg 8-13 capsules ity of capsule 00:00: by mouth [place] 00 in the [facility] Branch and 2 capsules at noon and 2 capsules in the evening. gabapentin 2021-0 2021- No [id number] 600mg Take 2 [facility] 300 mg 8-13 10-28 capsules ity of capsule 00:00: 00:00 by mouth [place] 00 :00 in the [facility] morning Branch and 2 capsules at noon and 2 capsules in the evening. gabapentin 2021-0 2021- No [id number] 600mg Take 2 Univers 300 mg 8-13 10-28 capsules ity of capsule 00:00: 00:00 by mouth [place] 00 :00 in the [facility] Branch and 2 capsules at noon and 2 capsules in the evening. Budesonide, 0 Yes .5mg Inhale 0.5 Sneha Inhalation, 8-12 mg into Seybo ld 0.5 MG/2ML 00:00: the lungs - inhalation 00 2 times [employer]iance [employer]itor a Suspension daily l Budesonide, 0 Yes .5mg Inhale 0.5 Sneha Inhalation, 8-12 mg into Seybo ld 0.5 MG/2ML 00:00: the lungs - inhalation 00 2 times [employer] a Suspension daily l budesonide 2022-0 Yes [id number] .5mg Inhale 2 Univers 0.5 mg/2 mL 8-12 mL in the ity of nebulizer 00:00: morning [place] solution 00 and 2 mL Medical in the Branch evening. lipase-prot 0 Yes [id number] 2{capsu Take 2 Univers ease-amylas 8-12 le} capsules ity of e (CREON) 00:00: by mouth [place] 12,000-38,[place] 00 in the Medica l 00 -60,000 morning Branch unit and 2 capsule capsules at noon and 2 capsules in the evening. Take with meals. budesonide Yes [id number] .5mg Inhale 2 Univers 0.5 mg/2 mL 8-12 mL in the ity of nebulizer 00:00: morning [place] solution 00 and 2 mL Medical in the Branch evening. lipase-prot Yes [id number] 2{capsu Take 2 Univers ease-amylas 8-12 le} capsules ity of e (CREON) 00:00: by mouth [place] 12,000-38,[place] 00 in the Medica l 00 -60,000 morning Branch unit and 2 capsule capsules at noon and 2 capsules in the evening. Take with meals. budesonide Yes [id number] .5mg Inhale 2 Univers 0.5 mg/2 mL 8-12 mL in the ity of nebulizer 00:00: morning [place] solution 00 and 2 mL Medical in the Branch evening. lipase-prot 0 Yes [id number] 2{capsu Take 2 [facility] ease-amylas 8-12 le} capsules ity of e (CREON) 00:00: by mouth [place] 12,000-38,[place] 00 in the Medica l 00 -60,000 morning Branch unit and 2 capsule capsules at noon and 2 capsules in the evening. Take with meals. budesonide Yes [id number] .5mg Inhale 2 Univers 0.5 mg/2 mL 8-12 mL in the ity of nebulizer 00:00: morning [place] solution 00 and 2 mL Medical in the Branch evening. lipase-prot 0 Yes [id number] 2{capsu Take 2 [facility] ease-amylas 8-12 le} capsules ity of e (CREON) 00:00: by mouth [place] 12,000-38,[place] 00 in the Medica l 00 -60,000 morning Branch unit and 2 capsule capsules at noon and 2 capsules in the evening. Take with meals. budesonide 0 Yes [id number] .5mg Inhale 2 Univers 0.5 mg/2 mL 8-12 mL in the ity of nebulizer 00:00: morning [place] solution 00 and 2 mL Medical in the Branch evening. lipase-prot 2021-0 Yes [id number] 2{capsu Take 2 [facility] ease-amylas 8-12 le} capsules ity of e (CREON) 00:00: by mouth [place] 12,000-38,[place] 00 in the Medica l 00 -60,000 morning Branch unit and 2 capsule capsules at noon and 2 capsules in the evening. Take with meals. budesonide Yes [id number] .5mg Inhale 2 Univers 0.5 mg/2 mL 8-12 mL in the ity of nebulizer 00:00: morning [place] solution 00 and 2 mL Medical in the Branch evening. lipase-prot 2021-0 Yes [id number] 2{capsu Take 2 [facility] ease-amylas 8-12 le} capsules ity of e (CREON) 00:00: by mouth [place] 12,000-38,[place] 00 in the Medica l 00 -60,000 morning Branch unit and 2 capsule capsules at noon and 2 capsules in the evening. Take with meals. budesonide Yes [id number] .5mg Inhale 2 Univers 0.5 mg/2 mL 8-12 mL in the ity of nebulizer 00:00: morning [place] solution 00 and 2 mL Medical in the Branch evening. lipase-prot 2021-0 Yes [id number] 2{capsu Take 2 [facility] ease-amylas 8-12 le} capsules ity of e (CREON) 00:00: by mouth [place] 12,000-38,[place] 00 in the Medica l 00 -60,000 morning Branch unit and 2 capsule capsules at noon and 2 capsules in the evening. Take with meals. budesonide 0 Yes [id number] .5mg Inhale 2 Univers 0.5 mg/2 mL 8-12 mL in the ity of nebulizer 00:00: morning [place] solution 00 and 2 mL Medical in the Branch evening. lipase-prot 0 Yes [id number] 2{capsu Take 2 [facility] ease-amylas 8-12 le} capsules ity of e (CREON) 00:00: by mouth [place] 12,000-38,[place] 00 in the Medica l 00 -60,000 morning Branch unit and 2 capsule capsules at noon and 2 capsules in the evening. Take with meals. budesonide 0 Yes [id number] .5mg Inhale 2 [facility] 0.5 mg/2 mL 8-12 mL in the ity of nebulizer 00:00: morning [place] solution 00 and 2 mL Medical in the Branch evening. lipase-prot 0 Yes [id number] 2{capsu Take 2 [facility] ease-amylas 8-12 le} capsules ity of e (CREON) 00:00: by mouth [place] 12,000-38,[place] 00 in the Medica l 00 -60,000 morning Branch unit and 2 capsule capsules at noon and 2 capsules in the evening. Take with meals. budesonide Yes [id number] .5mg Inhale 2 [facility] 0.5 mg/2 mL 8-12 mL in the ity of nebulizer 00:00: morning [place] solution 00 and 2 mL Medical in the Branch evening. lipase-prot 0 Yes [id number] 2{capsu Take 2 [facility] ease-amylas 8-12 le} capsules ity of e (CREON) 00:00: by mouth [place] 12,000-38,[place] 00 in the Medica l 00 -60,000 morning Branch unit and 2 capsule capsules at noon and 2 capsules in the evening. Take with meals. budesonide Yes [id number] .5mg Inhale 2 Univers 0.5 mg/2 mL 8-12 mL in the ity of nebulizer 00:00: morning [place] solution 00 and 2 mL Medical in the Branch evening. lipase-prot 2021-0 Yes [id number] 2{capsu Take 2 [facility] ease-amylas 8-12 le} capsules ity of e (CREON) 00:00: by mouth [place] 12,000-38,[place] 00 in the Medica l 00 -60,000 morning Branch unit and 2 capsule capsules at noon and 2 capsules in the evening. Take with meals. budesonide 2021-0 Yes [id number] .5mg Inhale 2 Univers 0.5 mg/2 mL 8-12 mL in the ity of nebulizer 00:00: morning [place] solution 00 and 2 mL Medical in the Branch evening. lipase-prot 2021-0 Yes [id number] 2{capsu Take 2 [facility] ease-amylas 8-12 le} capsules ity of e (CREON) 00:00: by mouth [place] 12,000-38,[place] 00 in the Medica l 00 -60,000 morning Branch unit and 2 capsule capsules at noon and 2 capsules in the evening. Take with meals. budesonide 2021-0 Yes [id number] .5mg Inhale 2 [facility] 0.5 mg/2 mL 8-12 mL in the ity of nebulizer 00:00: morning [place] solution 00 and 2 mL Medical in the Branch evening. lipase-prot 2021-0 Yes [id number] 2{capsu Take 2 [facility] ease-amylas 8-12 le} capsules ity of e (CREON) 00:00: by mouth [place] 12,000-38,[place] 00 in the Medica l 00 -60,000 morning Branch unit and 2 capsule capsules at noon and 2 capsules in the evening. Take with meals. budesonide 2021-0 Yes [id number] .5mg Inhale 2 [facility] 0.5 mg/2 mL 8-12 mL in the ity of nebulizer 00:00: morning [place] solution 00 and 2 mL Medical in the Branch evening. budesonide 2021-0 Yes [id number] .5mg Inhale 2 Univers 0.5 mg/2 mL 8-12 mL in the ity of nebulizer 00:00: morning [place] solution 00 and 2 mL Medical in the Branch evening. lipase-prot 2021-0 2021- No [id number] 2{capsu Take 2 [facility] ease-amylas 8-12 12-13 le} capsules ity of e (CREON) 00:00: 00:00 by mouth [place] 12,000-38,0 00 :00 in the Medica l 00 -60,000 morning Branch unit and 2 capsule capsules at noon and 2 capsules in the evening. Take with meals. lipase-prot 0 2021- No [id number] 2{capsu Take 2 [facility] ease-amylas 03-10 12-13 le} capsules ity of e (CREON) 00:00: 00:00 by mouth [place] 12,000-38,0 00 :00 in the Medica l 00 -60,000 morning Branch unit and 2 capsule capsules at noon and 2 capsules in the evening. Take with meals. Budesonide, 2021- No .5mg Inhale 0.5 Sneha Inhalation, 03-10 mg into Seyb old 0.5 MG/2ML 00:00: 00:00 the lungs - inhalation 00 :00 2 times [employer]iance Auditor a Suspension daily l cholecalcif 2022-0 Yes [id number] 1000U Take 1 [facility] [place], 8-01 tablet by ity of vitamin D3, 00:00: mouth in [place] 25 mcg 00 the Medical ( morning. Branch unit) tablet cholecalcif 2022-0 Yes [id number] 1000U Take 1 [facility], 8-01 tablet by ity of vitamin D3, 00:00: mouth in [place] 25 mcg 00 the Medical ( morning. Branch unit) tablet cholecalcif 2022-0 Yes [id number] 1000U Take 1 [facility], 8-01 tablet by ity of vitamin D3, 00:00: mouth in [place] 25 mcg 00 the Medical ( morning. Branch unit) tablet cholecalcif 2022-0 Yes [id number] 1000U Take 1 [facility], 8-01 tablet by ity of vitamin D3, 00:00: mouth in [place] 25 mcg 00 the Medical ( morning. Branch unit) tablet cholecalcif 2022-0 Yes [id number] 1000U Take 1 [facility], 8-01 tablet by ity of vitamin D3, 00:00: mouth in [place] 25 mcg 00 the Medical ( morning. Branch unit) tablet cholecalcif 2022-0 Yes [id number] 1000U Take 1 [facility], 8-01 tablet by ity of vitamin D3, 00:00: mouth in [place] 25 mcg 00 the Medical ( morning. Branch unit) tablet cholecalcif 2022-0 Yes [id number] 1000U Take 1 [facility], 8-01 tablet by ity of vitamin D3, 00:00: mouth in [place] 25 mcg 00 the Medical ( morning. Branch unit) tablet cholecalcif 2022-0 Yes [id number] 1000U Take 1 [facility], 8-01 tablet by ity of vitamin D3, 00:00: mouth in [place] 25 mcg 00 the Medical ( morning. Branch unit) tablet cholecalcif 2022-0 Yes [id number] 1000U Take 1 [facility] [place], 8-01 tablet by ity of vitamin D3, 00:00: mouth in [place] 25 mcg 00 the Medical ( morning. Branch unit) tablet cholecalcif 2022-0 Yes [id number] 1000U Take 1 [facility] [place], 8-01 tablet by ity of vitamin D3, 00:00: mouth in [place] 25 mcg 00 the Medical ( morning. Branch unit) tablet cholecalcif 2022-0 Yes [id number] 1000U Take 1 [facility] [place], 8-01 tablet by ity of vitamin D3, 00:00: mouth in [place] 25 mcg 00 the Medical ( morning. Branch unit) tablet cholecalcif 2022-0 Yes [id number] 1000U Take 1 [facility] [place], 8-01 tablet by ity of vitamin D3, 00:00: mouth in [place] 25 mcg 00 the Medical ( morning. Branch unit) tablet cholecalcif 2022-0 Yes [id number] 1000U Take 1 [facility] [place], 8-01 tablet by ity of vitamin D3, 00:00: mouth in [place] 25 mcg 00 the Medical ( morning. Branch unit) tablet cholecalcif 2022-0 2022- No [id number] 1000U Take 1 [facility], 8-01 12-13 tablet by ity of vitamin D3, 00:00: 00:00 mouth [place] 25 mcg 00 :00 the Medical ( morning. Branch unit) tablet cholecalcif 2022-0 2022- No [id number] 1000U Take 1 [facility], 8-01 12-13 tablet by ity of vitamin D3, 00:00: 00:00 mouth [place] 25 mcg 00 :00 the Medical ( morning. Branch unit) tablet Ondansetron 2022-0 Yes 4mg Q.25D Take 4 [...] 00 hours as Externa DISPERSIBLE needed l ondansetron 2022-0 Yes [id number] 4mg Take 1 [facility] 4 mg 7-31 tablet by ity of disintegrat 00:00: mouth [place] ing tablet 00 every 6 Medica l (six) Branch hours as needed for Nausea and Vomiting (N/V). ondansetron 2022-0 Yes [id number] 4mg Take 1 [facility] 4 mg 7-31 tablet by ity of disintegrat 00:00: mouth [place] ing tablet 00 every 6 Medica l (six) Branch hours as needed for Nausea and Vomiting (N/V). ondansetron 2-0 Yes [id number] 4mg Take 1 [facility] 4 mg 7-31 tablet by ity of disintegrat 00:00: mouth [place] ing tablet 00 every 6 Medica l (six) Branch hours as needed for Nausea and Vomiting (N/V). ondansetron 2021-0 Yes [id number] 4mg Take 1 [facility] 4 mg 7-31 tablet by ity of disintegrat 00:00: mouth [place] ing tablet 00 every 6 Medica l (six) Branch hours as needed for Nausea and Vomiting (N/V). ondansetron 2021-0 Yes [id number] 4mg Take 1 [facility] 4 mg 7-31 tablet by ity of disintegrat 00:00: mouth [place] ing tablet 00 every 6 Medica l (six) Branch hours as needed for Nausea and Vomiting (N/V). ondansetron 2021-0 Yes [id number] 4mg Take 1 [facility] 4 mg 7-31 tablet by ity of disintegrat 00:00: mouth [place] ing tablet 00 every 6 Medica l (six) Branch hours as needed for Nausea and Vomiting (N/V). ondansetron 2021-0 Yes [id number] 4mg Take 1 [facility] 4 mg 7-31 tablet by ity of disintegrat 00:00: mouth [place] ing tablet 00 every 6 Medica l (six) Branch hours as needed for Nausea and Vomiting (N/V). ondansetron 2021-0 Yes [id number] 4mg Take 1 [facility] 4 mg 7-31 tablet by ity of disintegrat 00:00: mouth [place] ing tablet 00 every 6 Medica l (six) Branch hours as needed for Nausea and Vomiting (N/V). ondansetron 2-0 Yes [id number] 4mg Take 1 [facility] 4 mg 7-31 tablet by ity of disintegrat 00:00: mouth [place] ing tablet 00 every 6 Medica l (six) Branch hours as needed for Nausea and Vomiting (N/V). ondansetron 2-0 Yes [id number] 4mg Take 1 [facility] 4 mg 7-31 tablet by ity of disintegrat 00:00: mouth [place] ing tablet 00 every 6 Medica l (six) Branch hours as needed for Nausea and Vomiting (N/V). ondansetron 0 Yes [id number] 4mg Take 1 [facility] 4 mg 7-31 tablet by ity of disintegrat 00:00: mouth [place] ing tablet 00 every 6 Medica l (six) Branch hours as needed for Nausea and Vomiting (N/V). ondansetron 0 Yes [id number] 4mg Take 1 [facility] 4 mg 7-31 tablet by ity of disintegrat 00:00: mouth [place] ing tablet 00 every 6 Medica l (six) Branch hours as needed for Nausea and Vomiting (N/V). ondansetron Yes [id number] 4mg Take 1 [facility] 4 mg 7-31 tablet by ity of disintegrat 00:00: mouth [place] ing tablet 00 every 6 Medica l (six) Branch hours as needed for Nausea and Vomiting (N/V). ondansetron Yes [id number] 4mg Take 1 [facility] 4 mg 7-31 tablet by ity of disintegrat 00:00: mouth [place] ing tablet 00 every 6 Medica l (six) Branch hours as needed for Nausea and Vomiting (N/V). ondansetron Yes [id number] 4mg Take 1 [facility] 4 mg 7-31 tablet by ity of disintegrat 00:00: mouth [place] ing tablet 00 every 6 Medica l (six) Branch hours as needed for Nausea and Vomiting (N/V). Levalbutero Yes 1.25mg Inhale [place] l HCl 1.25 7-28 1.25 mg Seybol d MG/3ML 00:00: into the - inhalation 00 lungs 3 Compliance Auditor a Inhalant times l Solution daily levalbutero 0 Yes [id number] 1.25mg Inhale Univers l 1.25 mg/3 7-28 1.25 mg in it y of mL 00:00: the [place] nebulizer 00 morning Medical solution and 1.25 Branch mg at noon and 1.25 mg in the evening. levalbutero 0 Yes [id number] 1.25mg Inhale Univers l 1.25 mg/3 7-28 1.25 mg in it y of mL 00:00: the [place] nebulizer 00 morning Medical solution and 1.25 Branch mg at noon and 1.25 mg in the evening. levalbutero 2021-0 Yes [id number] 1.25mg Inhale Univers l 1.25 mg/3 7-28 1.25 mg in it y of mL 00:00: the [place] nebulizer 00 morning Medical solution and 1.25 Branch mg at noon and 1.25 mg in the evening. levalbutero 2021-0 Yes [id number] 1.25mg Inhale Univers l 1.25 mg/3 7-28 1.25 mg in it y of mL 00:00: the [place] nebulizer 00 morning Medical solution and 1.25 Branch mg at noon and 1.25 mg in the evening. levalbutero 2021-0 Yes [id number] 1.25mg Inhale Univers l 1.25 mg/3 7-28 1.25 mg in it y of mL 00:00: the [place] nebulizer 00 morning Medical solution and 1.25 Branch mg at noon and 1.25 mg in the evening. levalbutero 2021-0 Yes [id number] 1.25mg Inhale Univers l 1.25 mg/3 7-28 1.25 mg in it y of mL 00:00: the [place] nebulizer 00 morning Medical solution and 1.25 Branch mg at noon and 1.25 mg in the evening. levalbutero 2021-0 Yes [id number] 1.25mg Inhale Univers l 1.25 mg/3 7-28 1.25 mg in it y of mL 00:00: the [place] nebulizer 00 morning Medical solution and 1.25 Branch mg at noon and 1.25 mg in the evening. levalbutero 2021-0 Yes [id number] 1.25mg Inhale Univers l 1.25 mg/3 7-28 1.25 mg in it y of mL 00:00: the [place] nebulizer 00 morning Medical solution and 1.25 Branch mg at noon and 1.25 mg in the evening. levalbutero 2021-0 Yes [id number] 1.25mg Inhale Univers l 1.25 mg/3 7-28 1.25 mg in it y of mL 00:00: the [place] nebulizer 00 morning Medical solution and 1.25 Branch mg at noon and 1.25 mg in the evening. levalbutero Yes [id number] 1.25mg Inhale Univers l 1.25 mg/3 7-28 1.25 mg in it y of mL 00:00: the [place] nebulizer 00 morning Medical solution and 1.25 Branch mg at noon and 1.25 mg in the evening. levalbutero Yes [id number] 1.25mg Inhale Univers l 1.25 mg/3 7-28 1.25 mg in it y of mL 00:00: the [place] nebulizer 00 morning Medical solution and 1.25 Branch mg at noon and 1.25 mg in the evening. levalbutero Yes [id number] 1.25mg Inhale Univers l 1.25 mg/3 7-28 1.25 mg in it y of mL 00:00: the [place] nebulizer 00 morning Medical solution and 1.25 Branch mg at noon and 1.25 mg in the evening. levalbutero Yes [id number] 1.25mg Inhale Univers l 1.25 mg/3 7-28 1.25 mg in it y of mL 00:00: the [place] nebulizer 00 morning Medical solution and 1.25 Branch mg at noon and 1.25 mg in the evening. levalbutero 2021- No [id number] 1.25mg Inhale Univers l 1.25 mg/3 7-28 12-13 1.25 mg in i ty of mL 00:00: 00:00 the [place] nebulizer 00 :00 morning Medical solution and 1.25 Branch mg at noon and 1.25 mg in the evening. levalbutero 2021- No [id number] 1.25mg Inhale Univers l 1.25 mg/3 7-28 12-13 1.25 mg in i ty of mL 00:00: 00:00 the [place] nebulizer 00 :00 morning Medical solution and 1.25 Branch mg at noon and 1.25 mg in the evening. Levalbutero 2021- No 1.25mg Inhale K elsey l HCl 1.25 7-28 11-09 1.25 mg Seybo ld MG/3ML 00:00: 00:00 into the - inhalation 00 :00 lungs 3 Compliance Auditor a Inhalant times l Solution daily Albuterol 2-0 Yes 2{puff} Q.25D Inhale 2 Sneha HFA 108 (90 7-21 puffs into [employer]) 00:00: the lungs - MCG/ACT IN 00 every 6 Compliance Auditor a AERS hours as l needed Respiratory 2022-0 Yes Use as Naty ey Therapy 7-21 directed [employer] 00:00: - (Barbara Baby 00 Externa Conversion l Kit) does not apply Misc Albuterol 2-0 Yes 2{puff} Q.25D Inhale 2 Sneha HFA 108 (90 7-21 puffs into [employer]) 00:00: the lungs - MCG/ACT IN 00 every 6 Compliance Auditor a AERS hours as l needed Respiratory 2-0 Yes Use as Naty ey Therapy 7-21 directed [employer] 00:00: - (Barbara Baby 00 Externa Conversion l Kit) does not apply Misc Albuterol 2-0 Yes 2{puff} Q.25D Inhale 2 Sneha HFA 108 (90 7-21 puffs into Se [employer]) 00:00: the lungs - MCG/ACT IN 00 every 6 Compliance Auditor a AERS hours as l needed Respiratory 2-0 Yes Use as Naty ey Therapy 7-21 directed [employer] 00:00: - (Barbara Baby 00 Externa Conversion l Kit) does not apply Misc Albuterol 2-0 Yes 2{puff} Q.25D Inhale 2 Sneha HFA 108 (90 7-21 puffs into [employer]) 00:00: the lungs - MCG/ACT IN 00 every 6 Compliance Auditor a AERS hours as l needed Respiratory 2-0 Yes Use as Naty ey Therapy 7-21 directed [employer] 00:00: - (Barbara Baby 00 Externa Conversion l Kit) does not apply Misc Albuterol 2022-0 Yes 2{puff} Q.25D Inhale 2 Sneha HFA 108 (90 7-21 puffs into [employer]) 00:00: the lungs - MCG/ACT IN 00 every 6 Compliance Auditor a AERS hours as l needed Respiratory 2022-0 Yes Use as Naty ey Therapy 7-21 directed [employer] 00:00: - (Barbara Baby 00 Externa Conversion l Kit) does not apply Misc Respiratory Yes Use as Naty ey Therapy 02-16 directed [employer] 00:00: - (Barbara Baby 00 Externa Conversion l Kit) does not apply Misc Respiratory Yes Use as Naty ey Therapy 02-16 directed [employer] 00:00: - (Barbara Baby 00 Externa Conversion l Kit) does not apply Misc Respiratory Yes Use as Naty ey Therapy 02-16 directed [employer] 00:00: - (Barbara Baby 00 Externa Conversion l Kit) does not apply Misc Respiratory 0 Yes Use as Naty ey Therapy 02-16 directed [employer] 00:00: - ([place]bara Baby 00 Externa Conversion l Kit) does not apply Misc Albuterol Yes 2{puff} Q.25D Inhale 2 S[facility] HFA 108 (90 7-21 puffs into [employer]) 00:00: the lungs - MCG/ACT IN 00 every 6 Compliance Auditor a AERS hours as l needed Respiratory Yes Use as Naty ey Therapy 02-16 directed [employer] 00:00: - (Barbara Baby 00 Externa Conversion l Kit) does not apply Misc albuterol Yes [id number] 2{puff} Inhale 2 Univers 90 7-21 Puffs ity of mcg/actuati 00:00: every 6 Rajeev as on inhaler 00 (six) Medical hours as Branch needed for Wheezing or Shortness of Breath. ondansetron Yes [id number] 4mg Take 1 Univers (ZOFRAN) 4 7-21 tablet by ity of mg tablet 00:00: mouth [place] 00 every 8 Medical (eight) Branch hours as needed for Nausea and Vomiting (N/V). Nebulizer Yes [id number] Use as Un niru Accessories 02-16 directed ity of Kit 00:00: [place] 00 Medical Branch albuterol Yes [id number] 2{puff} Inhale 2 Univers 90 7-21 Puffs ity of mcg/actuati 00:00: every 6 Rajeev as on inhaler 00 (six) Medical hours as Branch needed for Wheezing or Shortness of Breath. ondansetron Yes [id number] 4mg Take 1 Univers (ZOFRAN) 4 7-21 tablet by ity of mg tablet 00:00: mouth [place] 00 every 8 Medical (eight) Branch hours as needed for Nausea and Vomiting (N/V). Nebulizer 0 Yes [id number] Use as Un niru Accessories - directed ity of Kit 00:00: [place] Medical Branch albuterol 0 Yes [id number] 2{puff} Inhale 2 Univers 90 7-21 Puffs ity of mcg/actuati 00:00: every 6 Rajeev as on inhaler 00 (six) Medical hours as Branch needed for Wheezing or Shortness of Breath. ondansetron Yes [id number] 4mg Take 1 Univers (ZOFRAN) 4 7-21 tablet by ity of mg tablet 00:00: mouth [place] 00 every 8 Medical (eight) Branch hours as needed for Nausea and Vomiting (N/V). Nebulizer 0 Yes [id number] Use as Un niru Accessories - directed ity of Kit 00:00: [place] [facility] Branch albuterol 0 Yes [id number] 2{puff} Inhale 2 Univers 90 7-21 Puffs ity of mcg/actuati 00:00: every 6 Rajeev as on inhaler 00 (six) Medical hours as Branch needed for Wheezing or Shortness of Breath. ondansetron Yes [id number] 4mg Take 1 Univers (ZOFRAN) 4 7-21 tablet by ity of mg tablet 00:00: mouth [place] every 8 Medical (eight) Branch hours as needed for Nausea and Vomiting (N/V). Nebulizer 0 Yes [id number] Use as Un niru Accessories 02-16 directed ity of Kit 00:00: [place] [facility] Branch albuterol 0 Yes [id number] 2{puff} Inhale 2 Univers 90 7-21 Puffs ity of mcg/actuati 00:00: every 6 Rajeev as on inhaler 00 (six) Medical hours as Branch needed for Wheezing or Shortness of Breath. ondansetron 0 Yes [id number] 4mg Take 1 Univers (ZOFRAN) 4 7-21 tablet by ity of mg tablet 00:00: mouth [place] 00 every 8 Medical (eight) Branch hours as needed for Nausea and Vomiting (N/V). Nebulizer 0 Yes [id number] Use as Un niru Accessories - directed ity of Kit 00:00: [place] [facility] Branch albuterol 0 Yes [id number] 2{puff} Inhale 2 Univers 90 7-21 Puffs ity of mcg/actuati 00:00: every 6 Rajeev as on inhaler 00 (six) Medical hours as Branch needed for Wheezing or Shortness of Breath. ondansetron 0 Yes [id number] 4mg Take 1 Univers (ZOFRAN) 4 7-21 tablet by ity of mg tablet 00:00: mouth [place] 00 every 8 Medical (eight) Branch hours as needed for Nausea and Vomiting (N/V). Nebulizer 0 Yes [id number] Use as Un niru Accessories - directed ity of Kit 00:00: [place] [facility] Branch albuterol 0 Yes [id number] 2{puff} Inhale 2 Univers 90 7-21 Puffs ity of mcg/actuati 00:00: every 6 Rajeev as on inhaler 00 (six) Medical hours as Branch needed for Wheezing or Shortness of Breath. ondansetron Yes [id number] 4mg Take 1 Univers (ZOFRAN) 4 7-21 tablet by ity of mg tablet 00:00: mouth [place] 00 every 8 Medical (eight) Branch hours as needed for Nausea and Vomiting (N/V). Nebulizer 2021-0 Yes [id number] Use as Un niru Accessories - directed ity of Kit 00:00: [place] 00 Medical Branch albuterol 0 Yes [id number] 2{puff} Inhale 2 Univers 90 7-21 Puffs ity of mcg/actuati 00:00: every 6 Rajeev as on inhaler 00 (six) Medical hours as Branch needed for Wheezing or Shortness of Breath. ondansetron 0 Yes [id number] 4mg Take 1 Univers (ZOFRAN) 4 7-21 tablet by ity of mg tablet 00:00: mouth [place] 00 every 8 Medical (eight) Branch hours as needed for Nausea and Vomiting (N/V). Nebulizer 2021-0 Yes [id number] Use as Un niru Accessories - directed ity of Kit 00:00: [place] 00 Medical Branch albuterol Yes [id number] 2{puff} Inhale 2 Univers 90 7-21 Puffs ity of mcg/actuati 00:00: every 6 Rajeev as on inhaler 00 (six) Medical hours as Branch needed for Wheezing or Shortness of Breath. ondansetron 0 Yes [id number] 4mg Take 1 Univers (ZOFRAN) 4 7-21 tablet by ity of mg tablet 00:00: mouth [place] 00 every 8 Medical (eight) Branch hours as needed for Nausea and Vomiting (N/V). Nebulizer 0 Yes [id number] Use as Un niru Accessories 02-16 directed ity of Kit 00:00: Medical Branch albuterol 0 Yes [id number] 2{puff} Inhale 2 Univers 90 7-21 Puffs ity of mcg/actuati 00:00: every 6 Rajeev as on inhaler 00 (six) Medical hours as Branch needed for Wheezing or Shortness of Breath. ondansetron 0 Yes [id number] 4mg Take 1 [facility] (ZOFRAN) 4 7-21 tablet by ity of mg tablet 00:00: mouth [place] every 8 Medical (eight) Branch hours as needed for Nausea and Vomiting (N/V). Nebulizer 0 Yes [id number] Use as Un niru Accessories 02-16 directed ity of Kit 00:00: Medical Branch albuterol 0 Yes [id number] 2{puff} Inhale 2 Univers 90 7-21 Puffs ity of mcg/actuati 00:00: every 6 Rajeev as on inhaler 00 (six) Medical hours as Branch needed for Wheezing or Shortness of Breath. ondansetron 0 Yes [id number] 4mg Take 1 Univers (ZOFRAN) 4 7-21 tablet by ity of mg tablet 00:00: mouth [place] every 8 Medical (eight) Branch hours as needed for Nausea and Vomiting (N/V). Nebulizer 2021-0 Yes [id number] Use as Un niru Accessories - directed ity of Kit 00:00: Medical Branch albuterol 0 Yes [id number] 2{puff} Inhale 2 Univers 90 7-21 Puffs ity of mcg/actuati 00:00: every 6 Rajeev as on inhaler 00 (six) Medical hours as Branch needed for Wheezing or Shortness of Breath. ondansetron 0 Yes [id number] 4mg Take 1 Univers (ZOFRAN) 4 7-21 tablet by ity of mg tablet 00:00: mouth [place] 00 every 8 Medical (eight) Branch hours as needed for Nausea and Vomiting (N/V). Nebulizer 2021-0 Yes [id number] Use as Un niru Accessories - directed ity of Kit 00:00: [place] [facility] Branch albuterol 0 Yes [id number] 2{puff} Inhale 2 Univers 90 7-21 Puffs ity of mcg/actuati 00:00: every 6 Rajeev as on inhaler 00 (six) Medical hours as Branch needed for Wheezing or Shortness of Breath. ondansetron 0 Yes [id number] 4mg Take 1 Univers (ZOFRAN) 4 7-21 tablet by ity of mg tablet 00:00: mouth [place] every 8 Medical (eight) Branch hours as needed for Nausea and Vomiting (N/V). Nebulizer 2021-0 Yes [id number] Use as Un niru Accessories - directed ity of Kit 00:00: Medical Branch albuterol 0 Yes [id number] 2{puff} Inhale 2 Univers 90 7-21 Puffs ity of mcg/actuati 00:00: every 6 Rajeev as on inhaler 00 (six) Medical hours as Branch needed for Wheezing or Shortness of Breath. ondansetron 0 Yes [id number] 4mg Take 1 Univers (ZOFRAN) 4 7-21 tablet by ity of mg tablet 00:00: mouth [place] 00 every 8 Medical (eight) Branch hours as needed for Nausea and Vomiting (N/V). Nebulizer 2021-0 Yes [id number] Use as Un niru Accessories - directed ity of Kit 00:00: [place] [facility] Branch albuterol 2021-0 Yes [id number] 2{puff} Inhale 2 Univers 90 7-21 Puffs ity of mcg/actuati 00:00: every 6 Rajeev as on inhaler 00 (six) Medical hours as Branch needed for Wheezing or Shortness of Breath. ondansetron Yes [id number] 4mg Take 1 Univers (ZOFRAN) 4 7-21 tablet by ity of mg tablet 00:00: mouth [place] 00 every 8 Medical (eight) Branch hours as needed for Nausea and Vomiting (N/V). Nebulizer Yes [id number] Use as Un niru Accessories 02-16 directed ity of Kit 00:00: [place] 00 Medical Branch Albuterol 2023- No 2{puff} Q.25D Inhale 2 Sneha HFA 108 (90 02-16 03-10 puffs into [employer]) 00:00: 00:00 the lungs - MCG/ACT IN 00 :00 every 6 Compliance Auditor a AERS hours as l needed ESOMEPRAZOL Yes [id number] 40mg TAKE 1 Univers E 40 mg 7-18 CAPSULE BY ity of capsule 00:00: MOUTH [place] 00 DAILY WITH Medical BREAKFAST. Branch ESOMEPRAZOL Yes [id number] 40mg TAKE 1 Univers E 40 mg 7-18 CAPSULE BY ity of capsule 00:00: MOUTH [place] 00 DAILY WITH Medical BREAKFAST. Branch ESOMEPRAZOL Yes [id number] 40mg TAKE 1 Univers E 40 mg 7-18 CAPSULE BY ity of capsule 00:00: MOUTH [place] 00 DAILY WITH Medical BREAKFAST. Branch ESOMEPRAZOL Yes [id number] 40mg TAKE 1 Univers E 40 mg 7-18 CAPSULE BY ity of capsule 00:00: MOUTH [place] 00 DAILY WITH Medical BREAKFAST. Branch ESOMEPRAZOL Yes [id number] 40mg TAKE 1 Univers E 40 mg 7-18 CAPSULE BY ity of capsule 00:00: MOUTH [place] 00 DAILY WITH Medical BREAKFAST. Branch ESOMEPRAZOL Yes [id number] 40mg TAKE 1 Univers E 40 mg 7-18 CAPSULE BY ity of capsule 00:00: MOUTH [place] 00 DAILY WITH Medical BREAKFAST. Branch ESOMEPRAZOL Yes [id number] 40mg TAKE 1 Univers E 40 mg 7-18 CAPSULE BY ity of capsule 00:00: MOUTH [place] 00 DAILY WITH Medical BREAKFAST. Branch ESOMEPRAZOL Yes [id number] 40mg TAKE 1 Univers E 40 mg 7-18 CAPSULE BY ity of capsule 00:00: MOUTH [place] 00 DAILY WITH Medical BREAKFAST. Branch ESOMEPRAZOL 0 Yes [id number] 40mg TAKE 1 Univers E 40 mg 7-18 CAPSULE BY ity of capsule 00:00: MOUTH [place] 00 DAILY WITH Medical BREAKFAST. Branch ESOMEPRAZOL 2021-0 Yes [id number] 40mg TAKE 1 Univers E 40 mg 7-18 CAPSULE BY ity of capsule 00:00: MOUTH [place] 00 DAILY WITH Medical BREAKFAST. Branch ESOMEPRAZOL 2021-0 Yes [id number] 40mg TAKE 1 Univers E 40 mg 7-18 CAPSULE BY ity of capsule 00:00: MOUTH [place] 00 DAILY WITH Medical BREAKFAST. Branch ESOMEPRAZOL 0 Yes [id number] 40mg TAKE 1 Univers E 40 mg 7-18 CAPSULE BY ity of capsule 00:00: MOUTH [place] 00 DAILY WITH Medical BREAKFAST. Branch ESOMEPRAZOL Yes [id number] 40mg TAKE 1 Univers E 40 mg 7-18 CAPSULE BY ity of capsule 00:00: MOUTH [place] 00 DAILY WITH Medical BREAKFAST. Branch ESOMEPRAZOL 0 Yes [id number] 40mg TAKE 1 Univers E 40 mg 7-18 CAPSULE BY ity of capsule 00:00: MOUTH [place] 00 DAILY WITH Medical BREAKFAST. Branch ESOMEPRAZOL 0 Yes [id number] 40mg TAKE 1 Univers E 40 mg [...] 15:57: [place] 12.5 mg [facility] Take by Uni vers e 5-19 mouth. ity of (PHENERGAN) 15:57: [place] 12.5 mg 37 MD tablet [facility] promethazin Yes Take by Uni vers e 5-19 mouth. ity of (PHENERGAN) 15:57: [place] 12.5 mg 37 MD tablet [facility] cholecalcif 2021- No 400U Take 400 U [place]ivers [place], 4-07 04-07 Units by ity of vitamin D3, 17:19: 00:00 mouth. Rajeev as (VITAMIN 10 :00 MD D3) 5,000 [facility] units tab n tablet [facility] cholecalcif 2021- No 400U Take [...] day. As [facility] needed n [facility] diazePAM Yes 5mg Take 5 mg Univ ers (VALIUM) 5 4-07 by mouth 4 ity of mg tablet 17:18: (four) [place] 40 times a MD day. As [facility] needed n [facility] diazePAM Yes 5mg Take 5 [...] 50 mg 09:25: [place] tab 16 MD [facility] magnesium Yes 4{tbl} Take 4 Univ ers oxide-prote 2-28 tablets by it y of in complex 09:25: mouth [place] (Mg-Plus-Pr 16 daily. MD carolyn Augustin) n 133 mg Cancer tablet Center cholecalcif [...] Zinc) 50 mg 09:25: [place] tab 16 [facility] magnesium 0 Yes 4{tbl} Take 4 Univ ers oxide-prote 2-28 tablets by it y of in complex 09:25: mouth [place] (Mg-Plus-Pr 16 daily. MD carolyn Augustin) n 133 mg Cancer tablet Center cholecalcif 0 Yes 2000U Take 2,000 [facility] [place], 2-28 [...] [place] tab 16 MD Mccormick n [facility] [place] magnesium Yes 4{tbl} Take 4 Univ ers oxide-prote 2-28 tablets by it y of in complex 09:25: mouth [place] (Mg-Plus-Pr 16 daily. MD carolyn Mccormick Complex) n 133 mg [facility] cholecalcif Yes 2000U Take 2,000 Univers [...] for 5 minutes before washing off ketoconazol 2022-0 2023- No Seborrhea Apply Univers e (NIZORAL) 09-26- capitis topically ity of 2% shampoo 00:00: 05:59 to [place] 00 :00 affected MD area(s) 3 Anderso (three) n times a Cancer week Center Sunday, Sunday and Sunday. Leave in scalp for 5 minutes before washing off ketoconazol 2022- No Seborrhea Apply Univers e (NIZORAL) 09-26- capitis topically ity of 2% shampoo 00:00: 05:59 to [place] 00 :00 affected MD area(s) 3 Anderso (three) n times a Cancer week Center Sunday, Sunday and Sunday. Leave in scalp for 5 minutes before washing off silver 2021- No Intertrigo Apply Uni vers sulfadiazin 09-26-15 topically it y of e 00:00: 04:59 to [place] (Silvadene) 00 :00 affected MD 1% cream [...] No 1{tbl} Take 1 U nivers -acetaminop 09-16 tablet by it y of hen (NORCO) 09:06: 00:00 [place] 5 mg-325 mg 05 :00 every 6 MD per tablet (six) Anderso hours as n needed for Cancer mild pain. Center Taking 5/ 300 mg prn clonazePAM 2021- No 1mg Take 1 mg U nivers (KlonoPIN) 09-16 by mouth ity of 1 mg tablet 09:06: 00:00 daily. Rajeev as 01 :00 Reported MD maggie Mccormick 10/30/2016 [facility] clonazePAM 2021- No 1mg Take 1 mg U nivers (KlonoPIN) 09-16 by mouth ity of 1 mg tablet 09:06: 00:00 daily. Rajeev as 01 :00 Reported MD maggie Mccormick 10/30/2016 [facility] ondansetron Yes 2{tbl} 2 tablets Univers (ZOFRAN) 8 2-11 3 (three) ity of mg tablet 00:00: times a 00 day. MD Jace yoder [facility] ondansetron Yes 2{tbl} 2 tablets Univers (ZOFRAN) 8 2-11 3 (three) ity of mg tablet 00:00: times a day. MD Jace yoder [facility] ondansetron Yes 2{tbl} 2 tablets Univers (ZOFRAN) 8 2-11 3 (three) ity of mg tablet 00:00: times a 00 day. MD Jace yoder [facility] fluconazole 2021- No Candidiasis 100mg Take 1 Univers (Diflucan) 08-20 of skin tablet ity of 100 mg 00:00: 05:59 (100 mg) [place] tablet 00 :00 by mouth MD daily for Anderso 21 days. [facility] fluconazole 2021- No Candidiasis 100mg Take 1 Univers (Diflucan) 1-22 02-13 of skin tablet ity of 100 mg 00:00: 05:59 (100 mg) [place] tablet 00 :00 by mouth MD daily for Anderso 21 days. [facility] phenazopyri Yes 100mg Take 100 B aylor dine 1-20 mg by [place] (PYRIDIUM) 13:50: mouth of 100 MG 48 every 6 Medicin tablet hours as e needed. Pantoprazol Yes 40mg Take 40 mg Sneha e Sodium 40 -16 by mouth Seyb old MG oral 00:00: daily - Tablet 00 Externa Delayed l Response hydrocodone Yes 1{tbl} Take 1 Ba ylor -acetaminop 1-16 Tablet by Col leonie booker (ClickMagic[employer]) 00:00: mouth as of 5-325 mg 00 needed. Medicin tablet e pantoprazol Yes 40mg Take 40 mg [facility] e 1-16 by mouth Mary (PROTONIX) 00:00: daily. of 40 MG 00 Medicin tablet e Pantoprazol 2021- No 40mg Take 40 mg Sneha e Sodium 40 -16 09 by mouth Sey bold MG oral 00:00: 00:00 daily - Tablet 00 :00 Externa Delayed l Response HYDROcodone 2021- No Chronic 1{tbl} Take 1 Univers -acetaminop 08-1418 pain tablet by nicole ([place]) 00:00: 00:00 [place] 5 mg-325 [...] mg capsule 00:00: 00:00 (10 mg) by [place] 00 :00 mouth MD every 8 Anderso (eight) n hours as Cancer needed Center (abdominal cramps). pantoprazol No Nausea 40mg Take 1 U nivers e 08-14 tablet (40 ity of (Protonix) 00:00: 00:00 mg) [place] 40 mg EC 00 :00 mouth MD tablet every Anderso morning n before Cancer breakfast. [place] HYDROcodone 2021- No Chronic 1{tbl} Take 1 Univers -acetaminop 08-14 pain tablet by it y of hen ([place]) 00:00: 00:00 [place] 5 mg-325 mg 00 :00 every 6 MD per tablet (six) Anderso hours as n needed for Cancer moderate Center pain. carisoprodo No Chronic 350mg Take 1 Univers l (Soma) 08-14 pain tablet ity of 350 mg 00:00: 00:00 (350 mg) [place] tablet 00 :00 by mouth 4 MD (four) Anderso times a n day as Cancer needed for Center muscle spasms. dicyclomine Chronic 10mg Take 1 Univers (BENTYL) 10 08-14 pain capsule ity of mg capsule 00:00: 00:00 (10 mg) by [place] 00 :00 mouth MD every 8 Anderso (eight) n hours as Cancer needed Center (abdominal cramps). pantoprazol Nausea 40mg Take 1 U nivers e 08-14 tablet (40 ity of (Protonix) 00:00: 00:00 mg) [place] 40 mg EC 00 :00 mouth MD tablet every Anders[place] morning n before Cancer breakfast. [place] fluticasone 2021- No Chronic 1{puff} Inhale 1 Univers propionate- 08-14 pain puff by ity of salmeterol 00:00: 05:59 mouth [place] (Advair 00 :00 twice MD Diskus) 100 daily for And erso mcg-50 30 days. n mcg/inhalat Cancer ion diskus [place] inhaler fluticasone 2021- No Chronic 1{puff} Inhale 1 Univers propionate- 08-1416 pain puff by ity of salmeterol 00:00: 05:59 mouth [place] (Advair 00 :00 twice MD Diskus) 100 daily for And erso mcg-50 30 days. n mcg/inhalat Cancer ion diskus Center inhaler levoFLOXaci 2021- No Urinary 250mg Take 1 Univers n -14 09- tract tablet ity of (LEVAQUIN) 00:00: 05:59 infection, (250 mg) [place] 250 mg 00 :00 not by mouth MD tablet otherwise daily for And erso specified 21 days. n [facility] levoFLOXaci 2021- No Urinary 250mg Take 1 Univers n -09-05 tract tablet ity of (LEVAQUIN) 00:00: 05:59 infection, (250 mg) [place] 250 mg 00 :00 not by mouth MD tablet otherwise daily for And erso specified 21 days. n Cancer [place] levofloxaci 2021- No 250mg Take 250 [facility] n -14 09- mg by [place] (LEVAQUIN) 00:00: 05:59 mouth of 250 MG 00 :00 daily. Medicin tablet e promethazin Yes 25mg Take 25 mg Mac e 1-04 by mouth [place] (PHENERGAN) 00:00: daily. of 25 MG 00 Medicin tablet e potassium 2020-07 Yes 20meq Take 20 Bayl or chloride SA 2-21 mEq by [place] (K-DUR, 00:00: mouth of KLOR-CON 00 daily. Medicin M20) 20 MEQ e tablet carisoprodo 2020-07 Yes [id number] 350mg Q.25D Take 1 UT l (Soma) 2-15 tablet Health 350 MG 00:00: (350 mg tablet 00 total) by mouth 4 (four) times a day for 14 days. Take one and one-half tablet every 6 hours. carisoprodo 2020-07 Yes 350mg Take 350 B aylor l (SOMA) 2-15 mg by [place] 350 MG 00:00: mouth 6 of tablet 00 times Medicin daily. e HYDROcodone 2020-07- No [id number] 2{tbl} Q.25D Take 2 UT -acetaminop 2-15 01-05 tablets by gio booker ([place]) 00:00: 05:59 mouth 4 5-325 MG 00 :00 (four) tablet times a day for 20 days. phenazopyri 2020-07 Yes [facility] dine 2-14 Health (Pyridium) 16:38: 100 MG 01 tablet Promethazin 2020-07 Yes 25mg Take 25 mg Sneha e HCl 25 MG 2-04 by mouth Seyb old oral Tablet 00:00: daily 00 Externa l Promethazin 2020-07 Yes 25mg Take 25 mg Sneha e HCl 25 MG 2-04 by mouth Seyb old oral Tablet 00:00: daily Externa l Promethazin 2020-07 Yes 25mg Take 25 mg Sneha e HCl 25 MG 2-04 by mouth Seyb old oral Tablet 00:00: daily Externa l Promethazin 2020-07 Yes 25mg Take 25 mg Sneha e HCl 25 MG 2-04 by mouth Seyb old oral Tablet 00:00: daily 00 Externa l Promethazin 2020-07 Yes 25mg Take 25 mg Sneha e HCl 25 MG 2-04 by mouth Seyb old oral Tablet 00:00: daily Externa l Promethazin 2020-07 Yes 25mg Take 25 mg Sneha e HCl 25 MG 2-04 by mouth Seyb old oral Tablet 00:00: daily 00 Externa l Promethazin 2020-07 Yes 25mg Take 25 mg Sneha e HCl 25 MG 2-04 by mouth Seyb old oral Tablet 00:00: daily Externa l Promethazin 2020-07 Yes 25mg Take 25 mg Sneha e HCl 25 MG 2-04 by mouth Seyb old oral Tablet 00:00: daily 00 Externa l ondansetron 2020-07 Yes UT [...] Capsule 00:00: - 00 Externa l Ibuprofen 2020-073- No Sneha 200 MG oral 2-01 04-14 Seybold Capsule 00:00: 00:00 - 00 :00 Externa l diazePAM 2020-07 Yes 5mg Q.25D Take 5 mg UT (Valium) 5 1-24 by mouth 4 Hea lth MG tablet 00:00: (four) 00 times a day. diazepam 2020-07 Yes 5mg Take 5 mg [facility] (VALIUM) 5 1-24 by mouth Colle ge MG tablet 00:00: as needed. of 00 Medicin e Advair 2020-07 Yes [id number] INHALE ONE UT Diskus 1-23 (1) PUFF Health 100-50 00:00: BY MOUTH MCG/DOSE 00 TWICE diskus DAILY. inhaler Advair 2020-07 Yes [id number] INHALE ONE UT Diskus 1-23 (1) PUFF Health 100-50 00:00: BY MOUTH MCG/DOSE 00 TWICE diskus DAILY. inhaler dicyclomine 2020-07 Yes [id number] TAKE 1 UT (Bentyl) 10 0-21 CAPSULE BY He alth MG capsule 00:00: MOUTH 00 EVERY 4 HOURS dicyclomine 2020-07 Yes [id number] TAKE 1 UT (Bentyl) 10 0-21 CAPSULE BY He alth MG capsule 00:00: MOUTH 00 EVERY 4 HOURS fluconazole 2020-07 Yes [id number] TAKE 1 U T (Diflucan) 0-14 TABLET BY [facility] th 150 MG 00:00: MOUTH ONCE tablet 00 DAILY FOR 10 DAYS fluconazole 2020-07 Yes [id number] TAKE 1 U T (Diflucan) 0-14 TABLET BY [facility] th 150 MG 00:00: MOUTH ONCE tablet 00 DAILY FOR 10 DAYS lidocaine 2020-0 Yes UT (Xylocaine) 4-12 Health 2 % [...] 00:00: M.D. DAILY ans 00 DIRECTED. ADVAIR 2017- Yes daily as Univers DISKUS 4-27 needed. ity of 100-50 00:00: [place] mcg/dose 00 MD diskus [place] inhaler [facility] ADVAIR 2017-0 Yes daily as Univers DISKUS 4-27 needed. ity of 100-50 00:00: [place] mcg/dose 00 MD diskus [place] inhaler n [facility] ADVAIR 2017-0 Yes daily as Univers DISKUS 4-27 needed. ity of 100-50 00:00: [place] mcg/dose 00 MD diskus Anderso inhaler n [facility] Center Fluconazole Fluconazole Yes NOMI TAKE UT [...] Nystatin Nystatin [place] [id number] 2-17 SIRISHA SPIT 5ML Phys ici UNIT/ML UNIT/ML 00:00: M.D. EVERY 12 ans Mouth/Throa Mouth/Throa 00 HOURS . t t Suspension Suspension potassium Yes 40meq QD Take 40 Meth makeda [...] 20:58: mouth Hospita tablet 47 daily. l potassium 2016-0 Yes 40meq QD Take 40 [...] thodi -acetaminop 9-[address] hen (NORNE) 20:58: mouth Hospi ta 5-325 mg 47 every 4 l per tablet (four) hours as needed for moderate pain. fluconazole 2015-0 Yes 150mg QD Take 150 M ethodi (DIFLUCAN) 9-[address] 100 MG 20:58: mouth Hospita tablet 47 daily. l PROAIR HFA 2015-0 Yes INHALE TWO M ethodi 90 8-12 (2) st mcg/actuati 00:00: PUFF(S) BY Hospita on inhaler 00 MOUTH l EVERY FOUR HOURS NEEDED FOR WHEEZING, COUGHING OR SHORTNESS OF BREATH. clonAZEPAM 2015-0 Yes TAKE ONE Met hodi (KlonoPIN) 8-12 (1) st 1 MG tablet 00:00: TABLET(S) H ospita 00 BY MOUTH l FOUR TIMES A DAY. esomeprazol 2015-0 Yes 40mg Q.5D Take 40 mg Method[facility] e (NexIUM) 03-[address] 40 MG 00:00: (two) Hospita capsule 00 times a l day. PROAIR HFA Yes INHALE TWO M ethodi 90 03-10 (2) st mcg/actuati 00:00: PUFF(S) BY Hospita on inhaler 00 MOUTH l EVERY FOUR HOURS NEEDED FOR WHEEZING, COUGHING OR SHORTNESS OF BREATH. clonAZEPAM Yes TAKE ONE Met hodi (KlonoPIN) 03-10 (1) st 1 MG tablet 00:00: TABLET(S) H ospita 00 BY MOUTH l FOUR TIMES A DAY. esomeprazol Yes 40mg Q.5D Take 40 mg [facility] (NexIUM) 03-[address] 40 MG 00:00: (two) Hospita capsule 00 times a l day. carisoprodo Yes 350mg Take 350 U nivers l (SOMA) 3-30 mg by ity of 350 mg 00:00: mouth. [place] tablet 00 MD [facility] Center carisoprodo Yes 350mg Take 350 U nivers l (SOMA) 3-30 mg by ity of 350 mg 00:00: mouth. [place] tablet [facility] carisoprodo Yes 350mg Take 350 U nivers l (SOMA) 3-30 mg by ity of 350 mg 00:00: mouth. [place] tablet 00 [facility] Immunizations Ordered Filled Immunization Date Status Comments [facility] e Immunization Name Name Remdesivir 2022-02-25 Completed University of 00:00:00 [facility] Remdesivir 2022-02-25 Completed University of 00:00: [facility] Remdesivir 2022-02-25 Completed University of 00:00:00 [facility] Remdesivir 2022-02-25 Completed University of 00:00:00 [facility] Remdesivir 2022-02-25 Completed University of 00:00:00 [facility] Remdesivir 2022-02-25 Completed University of 00:00:00 [facility] Remdesivir 2022-02-25 Completed University of 00:00:00 [facility] Remdesivir 2022-02-25 Completed University of 00:00:00 [facility] Remdesivir 2022-02-25 Completed University of 00:00:00 [place] [facility] Remdesivir 2022-02-25 Completed University of 00:00:00 [place] [facility] Remdesivir 2022-02-25 Completed University of 00:00:00 [place] [facility] Remdesivir 2022-02-25 Completed University of 00:00:00 [place] [facility] Remdesivir 2022-02-25 Completed University of 00:00:00 [place] [facility] Remdesivir 2022-02-25 Completed University of 00:00:00 [place] [facility] Remdesivir 2022-02-25 Completed University of 00:00:00 [place] [facility] Remdesivir 2022-02-24 Completed University of 00:00:00 [place] [facility] Remdesivir 2022-02-24 Completed University of 00:00:00 [place] [facility] Remdesivir 2022-02-24 Completed University of 00:00:00 [place] [facility] Remdesivir 2022-02-24 Completed University of 00:00:00 [place] [facility] Remdesivir 2022-02-24 Completed University of 00:00:00 [place] [facility] Remdesivir 2022-02-24 Completed University of 00:00:00 [place] [facility] Remdesivir 2022-02-24 Completed University of 00:00:00 [place] [facility] Remdesivir 2022-02-24 Completed University of 00:00:00 [place] [facility] Remdesivir 2022-02-24 Completed University of 00:00:00 [place] [facility] Remdesivir 2022-02-24 Completed University of 00:00:00 [place] [facility] Remdesivir 2022-02-24 Completed University of 00:00:00 [place] [facility] Remdesivir 2022-02-24 Completed University of 00:00:00 [place] [facility] Remdesivir 2022-02-24 Completed University of 00:00:00 [place] [facility] Remdesivir 2022-02-24 Completed University of 00:00:00 [place] [facility] Remdesivir 2022-02-24 Completed University of 00:00:00 [place] [facility] Remdesivir 2022-02-24 Completed University of 00:00:00 [place] [facility] Remdesivir 2022-02-24 Completed University of 00:00:00 [place] [facility] Remdesivir 2022-02-24 Completed University of 00:00:00 [place] [facility] Remdesivir 2022-02-24 Completed University of 00:00:00 [place] [facility] Remdesivir 2022-02-24 Completed University of 00:00:00 [place] [facility] Remdesivir 2022-02-24 Completed University of 00:00:00 [place] [facility] Remdesivir 2022-02-24 Completed University of 00:00:00 [place] [facility] Remdesivir 2022-02-24 Completed University of 00:00:00 [place] [facility] Remdesivir 2022-02-24 Completed University of 00:00:00 [place] [facility] Remdesivir 2022-02-24 Completed University of 00:00:00 [place] [facility] Remdesivir 2022-02-24 Completed University of 00:00:00 [place] [facility] Remdesivir 2022-02-24 Completed University of 00:00:00 [place] [facility] Remdesivir 2022-02-24 Completed University of 00:00:00 [place] [facility] Remdesivir 2022-02-24 Completed University of 00:00:00 [place] [facility] Remdesivir 2022-02-24 Completed University of 00:00:00 [place] [facility] Remdesivir 2022-02-23 Completed University of 00:00:00 [place] [facility] Remdesivir 2022-02-23 Completed University of 00:00:00 [place] [facility] Remdesivir 2022-02-23 Completed University of 00:00:00 [place] [facility] Remdesivir 2022-02-23 Completed University of 00:00:00 [place] [facility] Remdesivir 2022-02-23 Completed University of 00:00:00 [place] [facility] Remdesivir 2022-02-23 Completed University of 00:00:00 [place] [facility] Remdesivir 2022-02-23 Completed University of 00:00:00 [place] [facility] Remdesivir 2022-02-23 Completed University of 00:00:00 [place] [facility] Remdesivir 2022-02-23 Completed University of 00:00:00 [place] [facility] Remdesivir 2022-02-23 Completed University of 00:00:00 [place] [facility] Remdesivir 2022-02-23 Completed University of 00:00:00 [place] [facility] Remdesivir 2022-02-23 Completed University of 00:00:00 [place] [facility] Remdesivir 2022-02-23 Completed University of 00:00:00 [place] [facility] Remdesivir 2022-02-23 Completed University of 00:00:00 [place] [facility] Remdesivir 2022-02-23 Completed University of 00:00:00 [place] [facility] Remdesivir 2022-02-22 Completed University of 00:00:00 [place] [facility] Remdesivir 2022-02-22 Completed University of 00:00:00 [place] [facility] Remdesivir 2022-02-22 Completed University of 00:00:00 [place] [facility] Remdesivir 2022-02-22 Completed University of 00:00:00 [place] [facility] Remdesivir 2022-02-22 Completed University of 00:00:00 [place] [facility] Remdesivir 2022-02-22 Completed University of 00:00:00 [place] [facility] Remdesivir 2022-02-22 Completed University of 00:00:00 [place] [facility] Remdesivir 2022-02-22 Completed University of 00:00:00 [place] [facility] Remdesivir 2022-02-22 Completed University of 00:00:00 [place] [facility] Remdesivir 2022-02-22 Completed University of 00:00:00 [place] [facility] Remdesivir 2022-02-22 Completed University of 00:00:00 [place] [facility] Remdesivir 2022-02-22 Completed University of 00:00:00 [place] [facility] Remdesivir 2022-02-22 Completed University of 00:00:00 [place] [facility] Remdesivir 2022-02-22 Completed University of 00:00:00 [place] [facility] Remdesivir 2022-02-22 Completed University of 00:00:00 [place] [facility] Remdesivir 2022-02-21 Completed University of 00:00:00 [place] [facility] Remdesivir 2022-02-21 Completed University of 00:00:00 [place] [facility] Remdesivir 2022-02-21 Completed University of 00:00:00 [place] [facility] Remdesivir 2022-02-21 Completed University of 00:00:00 [place] [facility] Remdesivir 2022-02-21 Completed University of 00:00:00 [place] [facility] Remdesivir 2022-02-21 Completed University of 00:00:00 [place] [facility] Remdesivir 2022-02-21 Completed University of 00:00:00 [place] [facility] Remdesivir 2022-02-21 Completed University of 00:00:00 [place] [facility] Remdesivir 2022-02-21 Completed University of 00:00:00 [facility] Remdesivir 2022-02-21 Completed University of 00:00:00 [facility] Remdesivir 2022-02-21 Completed University of 00:00:00 [facility] Remdesivir 2022-02-21 Completed University of 00:00:00 [facility] Remdesivir 2022-02-21 Completed University of 00:00:00 [facility] Remdesivir 2022-02-21 Completed University of 00:00:00 [facility] Remdesivir 2022-02-21 Completed University of 00:00:00 [facility] Vital Signs Vital Name Observation Time Observation Value Comments Source Systolic blood 2022-12-18 134 mm[Hg] Sneha Seybol d - pressure 16:29:00 External Diastolic blood 2022-12-18 86 mm[Hg] Sneha Seybo ld - pressure 16:29:00 External Heart rate 2022-12-18 95 /min Sneha liorold - 16:29:00 External Body temperature 2022-12-18 36.39 Fanta Sneha Seyb old - 16:29:00 External Respiratory rate 2022-12-18 20 /min Sneha Seyb old - 16:29:00 External Body height 2022-12-18 152.4 cm Sneha Seliorraciel - 16:29:00 External Body weight 2022-12-18 102.967 kg Sneha Seybold - 16:29:00 External BMI 2022-12-18 44.33 kg/m2 Sneha liorold - 16:29:00 External Oxygen saturation 2022-12-18 93 /min Sneha Gilman bold - in Arterial blood 16:29:00 External by Pulse oximetry Systolic blood 2022-11-10 136 mm[Hg] Sneha Seybol d - pressure 20:47:00 External Diastolic blood 2022-11-10 84 mm[Hg] Sneha Seybo ld - pressure 20:47:00 External Heart rate 2022-11-10 103 /min Sneha ybold - 20:47:00 External Body temperature 2022-11-10 37.28 Fanta Sneha Seyb old - 20:47:00 External Respiratory rate 2022-11-10 15 /min Sneha Markhamyb old - 20:47:00 External Body height 2022-11-10 152.4 cm Sneha Seybold - 20:47:00 External Body weight 2022-11-10 99.338 kg Sneha Seybold - 20:47:00 External BMI 2022-11-10 42.77 kg/m2 Sneha Seybold - 20:47:00 External Oxygen saturation 2022-11-10 97 /min Sneha Markhamy bold - in Arterial blood 20:47:00 External by Pulse oximetry Systolic blood 2022-10-09 132 mm[Hg] Sneha Seybol d - pressure 20:04:00 External Diastolic blood 2022-10-09 85 mm[Hg] Sneha Seybo ld - pressure 20:04:00 External Heart rate 2022-10-09 74 /min Sneha Seybold - 20:04:00 External Body temperature 2022-10-09 36.61 Fanta Sneha Seyb old - 20:04:00 External Respiratory rate 2022-10-09 14 /min Sneha Seyb old - 20:04:00 External Body height 2022-10-09 152.4 cm Sneha Seybold - 20:04:00 External Body weight 2022-10-09 102.967 kg Sneha Seybold - 20:04:00 External BMI 2022-10-09 44.33 kg/m2 Sneha Seybold - 20:04:00 External Oxygen saturation 2022-10-09 98 /min Sneha y bold - in Arterial blood 20:04:00 External by Pulse oximetry Systolic blood 2022-10-06 127 mm[Hg] Sneha Seybol d - pressure 21:34:00 External Diastolic blood 2022-10-06 84 mm[Hg] Sneha Seybo ld - pressure 21:34:00 External Heart rate 2022-10-06 79 /min Sneha Seybold - :34:00 External Body temperature 2022-10-06 36.94 Fanta Sneha Seyb old - 21:34:00 External Respiratory rate 2022-10-06 16 /min Sneha Seyb old - 21:34:00 External Body height 2022-10-06 152.4 cm Sneha Seybold - :34:00 External Body weight 2022-10-06 102.059 kg Sneha Seybold - 21:34:00 External BMI 2022-10-06 43.94 kg/m2 Sneha Markhamybold - :34:00 External Oxygen saturation 2022-10-06 94 /min Sneha Gilman bold - in Arterial blood 21:34:00 External by Pulse oximetry Systolic blood 2022-08-08 150 mm[Hg] Sneha Seybol d - pressure 22:19: External Diastolic blood 2022-08-08 82 mm[Hg] Sneha Seybo ld - pressure 22:19:00 External Heart rate 2022-08-08 110 /min Sneha Seybold - :19: External Body temperature 2022-08-08 36.39 Fanta Sneha Markhamyb old - :19:00 External Respiratory rate 2022-08-08 16 /min Sneha Markhamyb old - :19:00 External Body height 2022-08-08 152.4 cm Sneha Markhamybold - :19: External Body weight 2022-08-08 97.07 kg Sneha Seybold - :19: External BMI 2022-08-08 41.79 kg/m2 Sneha Markhamybold - 22:19:00 External Systolic blood 2022-07-11 142 mm[Hg] Sneha Seybol d - pressure 21:20:00 External Diastolic blood 2022-07-11 78 mm[Hg] Sneha Seybo ld - pressure 21:20:00 External Heart rate 2022-07-11 95 /min Sneha Markhamybold - :20:00 External Body temperature 2022-07-11 36.28 Fanta Sneha Markhamyb old - :20:00 External Respiratory rate 2022-07-11 14 /min Sneha Markhamyb old - :20:00 External Body height 2022-07-11 152.4 cm Sneha Markhamybold - :20:00 External Body weight 2022-07-11 93.441 kg Sneha Seybold - :20:00 External BMI 2022-07-11 40.23 kg/m2 Sneha Seybold - 21:20:00 External Systolic blood 2022-07-05 120 mm[Hg] Sneha Seybol d - pressure 22:06:00 External Diastolic blood 2022-07-05 78 mm[Hg] Sneha Seybo ld - pressure 22:06:00 External Heart rate 2022-07-05 73 /min Sneha Sorianoold - 21:43:00 External Body temperature 2022-07-05 36.56 Fanta Sneha Soriano old - 21:43:00 External Respiratory rate 2022-07-05 [...] 2022-06-30 129 mm[Hg] University of pressure 14:59:00 [facility] Diastolic blood 2022-06-30 82 mm[Hg] University o f pressure 14:59:00 [facility] Heart rate 2022-06-30 82 /min University of 14:59:00 [facility] Body height 2022-06-30 152.4 cm University of 14:59:00 [facility] Body weight 2022-06-30 90.719 kg University of 14:59:00 [facility] BMI 2022-06-30 39.06 kg/m2 University of 14:59:00 [facility] Oxygen saturation 2022-06-30 94 /min University of in Arterial blood 14:59:00 [facility] mihaela by Pulse oximetry Branch Systolic blood 2022-06-16 148 mm[Hg] University of pressure 17:00:00 [facility] Diastolic blood 2022-06-16 87 mm[Hg] University o f pressure 17:00:00 [facility] Respiratory rate 2022-06-16 15 /min University of 17:00:00 [facility] Oxygen saturation 2022-06-16 88 /min University of in Arterial blood 17:00:00 [place] [facility] mihaela by Pulse oximetry Branch Heart rate 2022-06-16 76 /min University of 16:40:00 [facility] Body temperature 2022-06-16 36.5 Fanta University of 16:40:00 [facility] Body height 2022-06-16 152.4 cm University of 13:07:00 [facility] Body weight 2022-06-16 90 kg University of 13:07:00 [facility] BMI 2022-06-16 38.75 kg/m2 University 13:07:00 [facility] Respiratory rate 2022-06-16 16 /min University 13:26:00 [facility] Systolic blood 2022-06-16 153 mm[Hg] University of pressure 13:07:00 [facility] Diastolic blood 2022-06-16 100 mm[Hg] University o f pressure 13:07:00 [facility] Heart rate 2022-06-16 70 /min University 13:07:00 [facility] Body temperature 2022-06-16 37.17 Fanta [facility] 13:07:00 [facility] Body height 2022-06-16 152.4 cm [facility] 13:07:00 [facility] Body weight 2022-06-16 90 kg [facility] 13:07:00 [facility] BMI 2022-06-16 38.75 kg/m2 [facility] 13:07:00 [facility] Oxygen saturation 2022-06-16 94 /min [facility] in Arterial blood 13:07:00 [facility] Pulse oximetry [place] Systolic blood 2022-06-07 142 mm[Hg] Sneha Seybol d - pressure 21:24:00 External Diastolic blood 2022-06-07 93 mm[Hg] Sneha Seybo ld - pressure 21:24:00 External Heart rate 2022-06-07 93 /min Sneha Markhamybold - 21:24:00 External Body temperature 2022-06-07 35.89 Fanta Sneha Markhamyb old - 21:24:00 External Respiratory rate 2022-06-07 16 /min Sneha Seyb old - 21:24:00 External Body height 2022-06-07 152.4 cm Sneha Seybold - 21:24:00 External Body weight 2022-06-07 87.091 kg Sneha Seybold - 21:24:00 External BMI 2022-06-07 37.50 kg/m2 Sneha Seybold - 21:24:00 External Systolic blood 2022-05-31 160 mm[Hg] Sneha Seybol d - pressure 20:30:00 External Diastolic blood 2022-05-31 98 mm[Hg] Sneha Seybo ld - pressure 20:30:00 External Heart rate 2022-05-31 119 /min Sneha Sorianoold - 20:30:00 External Body temperature 2022-05-31 37 Fanta Sneha Soriano old - 20:30:00 External Respiratory rate 2022-05-31 16 /min Sneha Soriano old - 20:30:00 External Body height 2022-05-31 152.4 cm Sneha Funez - 20:30:00 External Body weight 2022-05-31 87.091 kg Sneha Funez - 20:30:00 External BMI 2022-05-31 37.50 kg/m2 Sneha Funez - 20:30:00 External Systolic blood 2022-05-26 164 mm[Hg] Would not stop University of pressure 16:28:00 talking. [facility] Diastolic blood 2022-05-26 92 mm[Hg] Would not stop University of pressure 16:28:00 talking. [facility] Heart rate 2022-05-26 114 /min University of 16:28:00 [facility] Body height 2022-05-26 154.9 cm University of 16:28:00 [facility] Body weight 2022-05-26 85.73 kg University of 16:28:00 [facility] BMI 2022-05-26 35.71 kg/m2 University of 16:28:00 [facility] Systolic blood 2022-05-17 169 mm[Hg] University of pressure 13:09:00 [facility] Diastolic blood 2022-05-17 106 mm[Hg] University o f pressure 13:09:00 [facility] Heart rate 2022-05-17 67 /min University of 13:09:00 [facility] Body temperature 2022-05-17 36.72 Fatna University of 13:07:00 [facility] Respiratory rate 2022-05-17 18 /min University of 13:07:00 [facility] Body height 2022-05-17 154.9 cm University of 13:07:00 [facility] Body weight 2022-05-17 85.957 kg University of 13:07:00 [facility] BMI 2022-05-17 35.81 kg/m2 University of 13:07:00 [facility] Oxygen saturation 2022-05-17 90 /min r/a University of in Arterial blood 13:07:00 [facility] mihaela by Pulse oximetry Branch Systolic blood 2022-03-31 135 mm[Hg] University of pressure 18:15:00 [facility] Diastolic blood 2022-03-31 89 mm[Hg] University o f pressure 18:15:00 [facility] Heart rate 2022-03-31 82 /min University of 18:15:00 [facility] Body temperature 2022-03-31 36.17 Fanta [facility] 18:15:00 [facility] Respiratory rate 2022-03-31 18 /min University of 18:15:00 [facility] Body height 2022-03-31 154.9 cm University of 18:15:00 [facility] Oxygen saturation 2022-03-31 90 /min University of in Arterial blood 18:15:00 [facility] by Pulse oximetry [place] Systolic blood 2021-08-18 116 mm[Hg] [facility] e pressure 19:23:00 of Medicine Diastolic blood 2021-08-18 78 mm[Hg] [facility] ge pressure 19:23:00 of Medicine Heart rate 2021-08-18 76 /min [facility] 19:23:00 of Medicine Body temperature 2021-08-18 36.33 Fanta [facility] Jesus ege 19:23:00 of Medicine Respiratory rate 2021-08-18 20 /min [facility] Jesus ege 19:23:00 of Medicine Body height 2021-08-18 152.4 cm [facility] 19:23:00 of Medicine Body weight 2021-08-18 73.483 kg [facility] 19:23:00 of Medicine BMI 2021-08-18 31.64 kg/m2 [facility] 19:23:00 of Medicine Oxygen saturation 2021-08-18 92 /min [facility] Col lege in Arterial blood 19:23:00 of Medicin e by Pulse oximetry Heart rate 2021-12-16 70 /min [facility] 17:20:00 [facility] Respiratory rate 2021-12-16 12 /min University 17:20:00 [facility] Oxygen saturation 2021-12-16 91 /min University of in Arterial blood 17:20:00 [facility] by Pulse oximetry [facility] Systolic blood 2021-12-16 132 mm[Hg] University of pressure 17:15:00 [facility] Diastolic blood 2021-12-16 99 mm[Hg] University o f pressure 17:15:00 [facility] Body temperature 2021-12-16 36.61 Fanta [facility] 17:15:00 [facility] Body weight 2021-11-11 78 kg [facility] 17:06:00 [facility] BMI 2021-11-11 33.58 kg/m2 University 17:06:00 [facility] Body height 2021-09-16 152.4 cm [facility] 14:24:00 [facility] BP Systolic 2018-12-02 122 mm[Hg] Location: RUE; [facility] 14:49:00 Position: Sitting BP Diastolic 2018-12-02 84 mm[Hg] Location: RUE; [facility] 14:49:00 Position: Sitting Height 2018-12-02 60 [in_us] [facility] 14:49:00 Heart Rate 2018-12-02 91 /min Location: R [facility] 14:49:00 Brachial Artery; Quality: Normal O2 SAT 2018-12-02 91 % Source: RA [facility] 14:49:00 BP Systolic 2017-08-03 133 mm[Hg] Location: LUE; [facility] 15:50:00 Position: Sitting BP Diastolic 2017-08-03 90 mm[Hg] Location: LUE; [facility] 15:50:00 Position: Sitting Weight 2017-08-03 196 [lb_av] [facility] 15:50:00 Body Mass Index 2017-08-03 38.28 kg/m2 [facility] Calculated 15:50:00 Temperature 2017-08-03 98.2 [degF] Method: Oral [facility] 15:50:00 Heart Rate 2017-08-03 106 /min Location: L [facility] 15:50:00 Brachial Artery; Quality: Normal Procedures Procedure Date / Time Performing Clinician Source Performed MAGNETIC RESONANCE 2022-06-16 Anesthesiology [facility] IMAGING UNDER ANESTHESIA 22:00:00 Medical Branch MR BRAIN W WO CONTRAST 2022-06-16 Aramis Goodwin [facility] [place] 16:37:00 Medical Branch ASSIGNMENT OF BENEFITS 2022-06-16 Doctor Unassigned, No Uni versity [facility] 13:00:35 Name Medical Branch PATIENT QUESTIONNAIRE 2022-05-26 Doctor Unassigned, No Univ [facility] [place] 05:01:00 Name Medical Branch MRI BREAST BILATERAL W WO 2021-12-16 Cherrie Johnson [facility] CONTRAST INCL CAD 16:02:19 MD Deal [facility] MD ROGERSID-19 (SARS-COV-2) 2021-12-14 Cherrie Johnson [facility] PCR ASYMPTOMATIC 20:12:00 [facility] US BREAST COMPLETE 2021-09-16 Cherrie Johnson U [facility] BILATERAL 19:51:00 [facility] MAMMO DIGITAL DIAGNOSTIC 2021-09-16 Cherrie Johnson [facility] BILATERAL 18:38:36 [facility] URINE CULTURE 2021-08-21 Sheba Horton [facility] 03:29:00 [facility] URINALYSIS WITH 2021-08-21 Sheba Horton [facility] MICROSCOPIC IF INDICATED 03:29:00 MD Buck [facility] URINALYSIS MICROSCOPIC 2021-08-21 Sheba Horton [facility] [place] 03:29:00 [facility] WOUND CULTURE W/ GRAM 2021-08-21 [facility] STAIN 03:14:00 [facility] COVID-19 (SARS-COV-2) 2021-08-21 Sheba Horton [facility] [place] ASYMPTOMATIC-LT 00:51:00 [facility] COMPLETE BLOOD COUNT W/ 2021-08-21 [facility] DIFFER[facility] 00:47:00 [facility] COMPREHENSIVE METABOLIC 2021-08-21 Sheba Horton [facility] [place] PANEL 00:47:00 [facility] MAGNESIUM LEVEL 2021-08-21 Sheba Horton [facility] [place] 00:47:00 [facility] PHOSPHORUS LEVEL 2021-08-21 Sheba Horton [facility] [place] 00:47:00 [facility] LACTATE DEHYDROGENASE 2021-08-21 Sheba Horton [facility] [place] 00:47:00 [facility] AMYLASE LEVEL 2021-08-21 Sheba Horton [facility] [place] 00:47:00 [facility] LIPASE LEVEL 2021-08-21 Sheba Horton [facility] y [facility] 00:47:[address] [facility] Center Results CBC 2021-08-21 Sheba Horton [facility] 00:47:00 [facility] MANUAL DIFFERENTIAL 2021-08-21 Sheba Horton [facility] 00:47:[address] [facility] Center GLUCOSE LEVEL 2021-08-21 Sheba Horton [facility] 00:47:00 [facility] BLOOD UREA NITROGEN 2021-08-21 [facility]ba Horton [facility] 00:47[facility]00 [facility] ELECTROLYTE PANEL 2021-08-[address] [facility] 00:47:00 [facility] SERUM CREATININE 2021-08-21 Sheba Horton [facility] 00:47:00 [facility] .GLOMERULAR FILTRATION 2021-08-21 Sheba Horton [facility] RATE 00:47:[address] [facility] Center CALCIUM LEVEL TOTAL 2021-08-21 Sheba Horton [facility] 00:47:[address] [facility] Center ALBUMIN LEVEL 2021-08-21 Sheba Horton [facility] 00:47:[address] [facility] Center ALKALINE PHOSPHATASE 2021-08-21 Sheba Horton [facility] 00:47:[address] [facility] Center ALANINE AMINOTRANSFERASE 2021-08-21 Sheba Horton [facility] 00:47:[address] [facility] Center ASPARTATE 2021-08-21 Sheba Horton [facility] AMINOTRANSFERASE 00:47:00 [facility] Center TOTAL PROTEIN 2021-08-21 Sheba Horton [facility] 00:47:00 [facility] FRACTIONATED BILIRUBIN 2021-08-21 Sheba Horton [facility] [place] 00:47:00 [facility] URINALYSIS WITH 2021-08-14 [facility] INDICATED 08:18:00 MD Buck [facility] URINE DRUG SCREEN 2021-08-14 Marcy, [facility] [place] CONFIRMATION 08:18:00 [facility] URINALYSIS MICROSCOPIC 2021-08-[address] [facility] 08:18:[address] [facility] [address] ABDOMEN PELVIS W 2021-08-14 Marcy, [facility] CONTRAST 05:01:00 [facility] XR CHEST 1 VW 2021-08-14 [facility] 03:33:36 [facility] XR ABDOMEN 1 VW PORTABLE 2021-08-14 Marcy, [facility] 03:33:[address] [facility] [address] HEAD WO CONTRAST 2021-08-14 Marcy, [facility] 03:26:55 [facility] COVID-19 (SARS-COV-2) 2021-08-14 Osvaldo Vidal [facility] ASYMPTOMATIC-LT 02:52:00 [facility] COMPLETE BLOOD COUNT W/ 2021-08-14 Marcy [facility] DIFFERENTIAL 02:52:00 [facility] COMPREHENSIVE METABOLIC 2021-08-14 Marcy, [facility] PANEL 02:52:00 [facility] MAGNESIUM LEVEL 2021-08-14 Hita, [facility] 02:52:00 [facility] PHOSPHORUS LEVEL 2021-08-14 Hita, [facility] 02:52:00 [facility] PROTHROMBIN TIME 2021-08-14 Hita, [facility] 02:52:00 [facility] APTT 2021-08-14 Hita, [facility] 02:52:00 [facility] TYPE AND SCREEN 2021-08-14 Marcy, [facility] 02:52:00 [facility] AMMONIA LEVEL 2021-08-14 Hita, [facility] 02:52:00 [facility] AMYLASE LEVEL 2021-08-14 Hita, [facility] 02:52:00 [facility] LIPASE LEVEL 2021-08-14 Hita, [facility] 02:52:00 [facility] URIC ACID 2021-08-14 Hita, [facility] 02:52:00 [facility] THYROID STIMULATING 2021-08-14 Hita, [facility] HORMONE 02:52:00 [facility] HEMOGLOBIN A1C 2021-08-14 [facility], [facility] 02:52:00 [facility] CONFIRM ABORH TYPE 2021-08-14 Hita, [facility] 02:52:00 [facility] ABORH 2021-08-14 Hita, [facility] 02:52:00 [facility] ANTIBODY SCREEN 2021-08-14 [facility], [facility] 02:52:00 [facility] Results CBC 2021-08-14 [facility], [facility] 02:52:00 [facility] MANUAL DIFFERENTIAL 2021-08-14 [facility], [facility] 02:52:00 [facility] GLUCOSE LEVEL 2021-08-14 [facility], [facility] 02:52:00 [facility] BLOOD UREA NITROGEN 2021-08-14 [facility], [facility] 02:52:00 [facility] ELECTROLYTE PANEL 2021-08-14 [facility], [facility] 02:52:00 [facility] SERUM CREATININE 2021-08-14 Hita, [facility] 02:52:00 [facility] .GLOMERULAR FILTRATION 2021-08-14 Hita, [facility] RATE 02:52:00 [facility] CALCIUM LEVEL TOTAL 2021-08-14 Hita, [facility] 02:52:00 [facility] ALBUMIN LEVEL 2021-08-14 Hita, [facility] 02:52:00 [facility] ALKALINE PHOSPHATASE 2021-08-14 [facility], [facility] 02:52:00 [facility] ALANINE AMINOTRANSFERASE 2021-08-14 Osvaldo Vidal [facility] 02:52:00 [facility] ASPARTATE 2021-08-14 Osvaldo Vidal [facility] AMINOTRANSFERASE 02:52:00 [facility] TOTAL PROTEIN 2021-08-14 Osvaldo Vidal [facility] 02:52:00 [facility] FRACTIONATED BILIRUBIN 2021-08-[address] [facility] 02:52:00 [facility] CLOT EXPIRATION DATE 2021-08-14 Osvaldo Vidal [facility] 02:52:00 [facility] TMP INTERPRETATION 2021-08-14 Osvaldo Vidal [facility] ANTIBODY SCREEN NEGATIVE 02:52:00 MD [facility] EKG, 12-LEAD (PORTABLE) 2021-08-14 Osvaldo Vidal [facility] 00:00:00 [facility] MA Digital Mammo DX Markus 2019-06-25 [facility] [id number] 00:00:00 [place] [id number] 2019-06-25 [facility] 00[facility]:00 CT Chest [place] 2018-[place] [id number] 00:00:00 CT Neck soft tissue wo 2018-12-03 [facility] contrast [id number] 00:00:00 [QLH] CMP W/EGFR 2018-12-02 [facility] 00:00:00 [QLH] CBC (INCLUDES 2018-12-02 [facility] DIFF/PLT) 00:00:00 [QLH] LIPID PANEL 2018-12-02 [facility] 00:00:00 [QLH] THYROID PANEL 2018-12-02 [facility] 00:00:00 [QLH] URINALYSIS, 2018-12-02 [facility] COMPLETE 00:00:00 US Unlisted Ultrasound 2018-12-02 [facility] Procedure [id number] 00:00:00 [U] XRAY CHEST- AP AND 2018-12-02 [facility] LAT. AND APICAL LORDOTIC 00:00:00 VWS [id number] US Abdomen complete [id number] 2017-08-03 [facility] 00:00:00 XRAY Chest 2 views [id number] 2017-08-03 [facility] 00:00:00 XRAY Ribs unilateral 2017-08-[id number] 00:00:00 XRAY Wrist AP and lateral 2017-08-03 [facility] [id number] 00:00:00 Plan of Care Planned Activity Planned Date Details Comments Source Future Scheduled 2022-12-08 COVID-19 Vaccination Uni versity of Test 17:50:26 (#1) [code = COVID-19 [facility] Vaccination (#1)] Cancer [address] [facility] Future Scheduled 2022-06-30 COVID-19 Vaccination Uni versity of Test 08:23:31 (#1) [code = COVID-19 [facility] Vaccination (#1)] Cancer [facility] [facility] Future Scheduled 2022-06-30 COVID-19 Vaccination Uni versity of Test 08:23:31 (#1) [code = COVID-19 [facility] Vaccination (#1)] Cancer [facility] [facility] Future Scheduled 2021-08-19 Screening for malignant [facility] Test 10:07:54 neoplasm of colon Medicine (procedure) [code = 855256445] Future Scheduled 2021-08-19 Screening for malignant [facility] Test 10:07:54 neoplasm of breast Medicine (procedure) [code = 591992028] Future Scheduled 2021-08-19 Pneumococcal Combined (1 [facility] Test 10:07:54 of 2 - PPSV23) [code = Medic ine Pneumococcal Combined (1 of 2 - PPSV23)] Future Scheduled 2021-08-19 COVID-19 Vaccine (1) [facility] Test 10:07:54 [code = COVID-19 Vaccine Med icine (1)] Future Scheduled 2021-08-19 TETANUS SHOT (ADULT) [facility] Test 10:07:54 [code = TETANUS SHOT Medicin e (ADULT)] Future Scheduled 2021-08-19 BMI FOLLOW UP PLAN [code [facility] Test 10:07:54 = BMI FOLLOW UP PLAN] Medici ne Future Scheduled 2021-08-19 Hepatitis C screening [facility] Test 10:07:54 (procedure) [code = Medicine 981125452] Future Scheduled 2021-08-19 Human immunodeficiency B [facility] Test 10:07:54 virus screening Medicine (procedure) [code = 228344882] Future Scheduled 2021-08-19 Screening for malignant [facility] 10:07:54 neoplasm of cervix Medicine (procedure) [code = 647448374] Future Scheduled 2021-08-19 ZOSTER VACCINE (1 of 2) [facility] 10:07:54 [code = ZOSTER VACCINE Medic ine (1 of 2)] Future Scheduled 2021-08-19 FLU VACCINE > 6 MONTHS B [facility] 10:07:54 [code = FLU VACCINE > 6 Medi cine MONTHS] Encounters Start End Encounter Admission Attending Care Care Encounter Source Date/Time Date/Time Type Type Clinicians Facility Department ID 2021-12-09 Outpatient [facility] [id number] Univers 13:07:26 [facility] [place] [facility] 2021-12-07 Outpatient [facility] [id number] Univers 07:53:32 [facility] 2021-07-08 Outpatient [place]GH [place] [id number] [place] 16:50:53 [facility] 2021-05-24 Outpatient [place]ISHATGH [place] [id number] [place] 13:44:48 [facility] 2021-05-17 Outpatient [place]ISHATGH [place] [id number] [place] 13:12:21 [facility] 2023-01-19 2023-01-19 Outpatient SNEHA FERRELL [id number] Sneha 00:00:00 00:00:00 JOHN Seybol reg 2023-01-11 2023-01-11 Outpatient TONA VELIZ [id number] Sneha 00:00:00 00:00:00 MD Charisse MUJICA 2023-01-11 2023-01-11 Outpatient SNEHA FERRELL [id number] Sneha 00:00:00 00:00:00 JOHN Seybol reg 2023-01-11 2023-01-11 Outpatient SNEHA FERRELL [id number] Sneha 00:00:00 00:00:00 JOHN Seybol reg 2023-01-05 2023-01-05 Outpatient SNEHA FERRELL [id number] Sneha 00:00:00 00:00:00 JOHN Seybol reg 2022-12-22 2022-12-22 Outpatient SNEHA FERRELL [id number] Sneha 00:00:00 00:00:00 JOHN Seybol d 2022-12-22 2022-12-22 Outpatient PREZAS, SNEHA VELIZ [id number] Sneha 00:00:00 00:00:00 JOHN Seybol d 2022-12-22 2022-12-22 Outpatient PREZAS, SNEHA VELIZ [id number] Sneha 00:00:00 00:00:00 JOHN Seybol d 2022-12-19 2022-12-19 Outpatient PREZAS, SNEHA VELIZ [id number] Sneha 00:00:00 00:00:00 JOHN Seybol d 2022-12-18 2022-12-18 Outpatient PREZAS, SNEHA VELIZ [id number] Sneha 11:30:00 11:30:00 JOHN Seybol d 2022-12-13 2022-12-13 Outpatient PREZAS, SNEHA VELIZ [id number] Sneha 15:30:00 15:30:00 JOHN Seybol d 2022-12-12 2022-12-12 Outpatient PREZAS, SNEHA VELIZ [id number] Sneha 00:00:00 00:00:00 JOHN Seybol d 2022-12-08 2022-12-08 Outpatient PREZAS, SNEHA VELIZ [id number] Sneha 00:00:00 00:00:00 JOHN Seybol d 2022-11-28 2022-11-28 Outpatient MYKELSEYON SNEHA VELIZ [id number] Sneha 00:00:00 00:00:00 GUANAKO MD Seybol d 2022-11-22 2022-11-22 Outpatient PREZAS, SNEHA VELIZ [id number] Sneha 00:00:00 00:00:00 JOHN Seybol d 2022-11-19 2022-11-19 Outpatient PREZAS, SNEHA VELIZ [id number] Sneha 00:00:00 00:00:00 JOHN Seybol d 2022-11-10 2022-11-10 Outpatient PREZAS, SNEHA VELIZ [id number] Sneha 16:00:00 16:00:00 JOHN Seybol d 2022-11-10 2022-11-10 Outpatient PRESNEHA MCWILLIAMS [id number] Sneha 13:45:00 13:45:00 JOHN Seybol d 2022-10-26 2022-10-26 Outpatient SNEHA FERRELL [id number] Sneha 00:00:00 00:00:00 JOHN Seybol d 2022-10-24 2022-10-24 Telephone Lester, [id number] [facility] 00:00:00 00:00:00 Lyssa Galindo [id number] ity of [id number] MD Renetta8 [facility] 2022-10-23 2022-10-23 Outpatient SNEHA FERRELL [id number] Sneha 00:00:00 00:00:00 JOHN Seybol d 2022-10-23 2022-10-23 Outpatient SNEHA FERRELL [id number] Sneha 00:00:00 00:00:00 JOHN Seybol d 2022-10-21 2022-10-21 Outpatient SNEHA MORALES [id number] Sneha 00:00:00 00:00:00 RUBÉN Seybo ld 2022-10-21 2022-10-21 Outpatient SNEHA DOW [id number] Sneha 00:00:00 00:00:00 LAUREN Seybol d 2022-10-13 2022-10-13 Outpatient SNEHA FERRELL [id number] Sneha 00:00:00 00:00:00 JOHN Seybol d 2022-10-10 2022-10-10 Outpatient PRESNEHA MCWILLIAMS [id number] Sneha 00:00:00 00:00:00 JOHN Seybol d 2022-10-09 2022-10-09 Outpatient LAB90 SNEHA VELIZ [id number] Sneha 15:45:00 15:45:00 Seybol d 2022-10-09 2022-10-09 Outpatient SNEHA FERRELL [id number] Sneha 14:45:00 14:45:00 JOHN Seybol d 2022-10-06 2022-10-06 Outpatient LAB39 SNEHA VELIZ [id number] Sneha 16:25:00 16:25:00 Seybol d 2022-10-06 2022-10-06 Outpatient PREZAS, SNEHA VELIZ [id number] Sneha 16:15:00 16:15:00 JOHN Seybol d 2022-10-06 2022-10-06 Outpatient JENNY, SNEHA VELIZ [id number] Sneha 15:30:00 15:30:00 ANATOLY Seybol d 2022-10-06 2022-10-06 Outpatient PREZAS, SNEHA VELIZ [id number] Sneha 00:00:00 00:00:00 JOHN Seybol d 2022-10-05 2022-10-05 Outpatient PREZAS, SNEHA VELIZ [id number] Sneha 00:00:00 00:00:00 JOHN Seybol d 2022-10-04 2022-10-04 Outpatient JENNY, SNEHA VELIZ [id number] Sneha 00:00:00 00:00:00 ANATOLY Seybol d 2022-10-03 2022-10-03 Outpatient PREZAS, SNEHA VELIZ [id number] S[facility]ha 00:00:00 00:00:00 JOHN Seybol d 2022-09-29 2022-09-29 Outpatient PREZAS, SNEHA VELIZ [id number] Sneha 00:00:00 00:00:00 JOHN Seybol d 2022-09-26 2022-09-26 Outpatient PREZAS, SNEHA VELIZ [id number] Sneha 00:00:00 00:00:00 JOHN Seybol d 2022-09-25 2022-09-25 Outpatient PREZAS, SNEHA VELIZ [id number] S[facility]ha 00:00:00 00:00:00 JOHN Seybol d 2022-09-24 2022-09-24 Outpatient PREZAS, SNEHA VELIZ [id number] [facility]ha 00:00:00 00:00:00 JOHN Seybol d 2022-09-22 2022-09-22 Outpatient JENNY, SNEHA EVLIZ [id number] [facility]ha 15:30:00 15:30:00 ANATOLY Seybol d 2022-09-22 2022-09-22 Outpatient JENNY, SNEHA VELIZ [id number] Sneha 15:30:00 15:30:00 ANATOLY Seybol d 2022-09-21 2022-09-21 Outpatient PREZAS, SNEHA VELIZ [id number] Sneha 00:00:00 00:00:00 JOHN Seybol d 2022-09-18 2022-09-18 Outpatient PREZAS, SNEHA VELIZ [id number] Sneha 00:00:00 00:00:00 JOHN Seybol d 2022-09-13 2022-09-13 Outpatient PREZAS, SNEHA VELIZ [id number] Sneha 00:00:00 00:00:00 JOHN Seybol d 2022-09-06 2022-09-06 Outpatient JENNY, SNEHA VELIZ [id number] Sneha 00:00:00 00:00:00 ANATOLY Seybol d 2022-09-06 2022-09-06 Outpatient NATHANI, SNEHA VELIZ [id number] Sneha 00:00:00 00:00:00 MUHAMMED Seybo ld 2022-09-05 2022-09-05 Outpatient PREZAS, SNEHA VELIZ [id number] S[facility]ha 15:45:00 15:45:00 JOHN Seybol d 2022-09-04 2022-09-04 Outpatient PREZAS, SNEHA VELIZ [id number] S[facility]ha 00:00:00 00:00:00 JOHN Seybol d 2022-08-28 2022-08-28 Outpatient PREZAS, SNEHA VELIZ [id number] S[facility]ha 00:00:00 00:00:00 JOHN Seybol d 2022-08-25 2022-08-25 Outpatient JENNY, SNEHA VELIZ [id number] [facility] 10:00:00 10:00:00 ANATOLY Seybol d 2022-08-10 2022-08-10 Outpatient PREZAS, SNEHA VELIZ [id number] [facility]ha 00:00:00 00:00:00 JOHN Seybol d 2022-08-10 2022-08-10 Outpatient PREZAS, SNEHA VELIZ [id number] S[place]ha 00:00:00 00:00:00 JOHN Seybol d 2022-08-08 2022-08-08 Outpatient PREZAS, SNEHA VELIZ [id number] [facility] 16:15:00 16:15:00 JOHN Seybol d 2022-08-07 2022-08-07 Outpatient PREZAS, SNEHA VELIZ [id number] Sneha 00:00:00 00:00:00 JOHN Seybol d 2022-08-06 2022-08-06 Outpatient PREZAS, SNEHA VELIZ [id number] Sneha 00:00:00 00:00:00 JOHN Seybol d 2022-08-04 2022-08-04 Outpatient PREZAS, SNHEA VELIZ [id number] Sneha 00:00:00 00:00:00 JOHN Seybol d 2022-08-04 2022-08-04 Outpatient JENNYSNEHA [id number] Sneha 00:00:00 00:00:00 ANATOLY Seybol d 2022-08-03 2022-08-03 Outpatient SNEHA VELIZ [id number] Sneha 09:30:00 09:30:00 Seybol d 2022-08-03 2022-08-03 Outpatient REEDAKHIL SNEHA VELIZ [id number] Sneha 09:30:00 09:30:00 Seybol d 2022-07-28 2022-07-28 Outpatient LAB67 SNEHA VELIZ [id number] Sneha 17:00:00 17:00:00 Seybol d 2022-07-28 2022-07-28 Outpatient SNEHA VELIZ [id number] Sneha 16:15:00 16:15:00 Seybol d 2022-07-28 2022-07-28 Outpatient JENNY, SNEHA VELIZ [id number] Sneha 00:00:00 00:00:00 ANATOLY Seybol d 2022-07-28 2022-07-28 Outpatient PREZAS, SNEHA VELIZ [id number] Sneha 00:00:00 00:00:00 JOHN Seybol d 2022-07-27 2022-07-27 Outpatient PLAB SNEHA NARAYANSEY [id number] Sneha 15:00:00 15:00:00 Seybol d 2022-07-27 2022-07-27 Outpatient SNEHA SNEHA [id number] Sneha 13:15:00 13:15:00 Seybol d 2022-07-21 2022-07-21 Outpatient PLAB SNEHA SNEHA [id number] Sneha 14:20:00 14:20:00 Seybol d 2022-07-21 2022-07-21 Outpatient PLAB SNEHA SNEHA [id number] Sneha 14:20:00 14:20:00 Seybol d 2022-07-21 2022-07-21 Outpatient SNEHA VELIZ [id number] Sneha 13:00:00 13:00:00 Seybol d 2022-07-20 2022-07-20 Outpatient JENNYSNEHA DE LEÓN [id number] Sneha 00:00:00 00:00:00 ANATOLY Seybol d 2022-07-19 2022-07-19 Outpatient PREZASSNEHA [id number] Sneha 00:00:00 00:00:00 JOHN Seybol d 2022-07-18 2022-07-18 Outpatient PREZASSNEHA [id number] Sneha 00:00:00 00:00:00 JOHN Seybol d 2022-07-14 2022-07-14 Outpatient JENNYSNEHA [id number] Sneha 15:00:00 15:00:00 ANATOLY Seybol d 2022-07-14 2022-07-14 Outpatient PREZASSNEHA [id number] Sneha 00:00:00 00:00:00 JOHN Seybol d 2022-07-14 2022-07-14 Outpatient PREZASSNEHA [id number] Sneha 00:00:00 00:00:00 JOHN Seybol d 2022-07-13 2022-07-13 Outpatient JENNYSNEHA [id number] Sneha 16:00:00 16:00:00 ANATOLY Seybol d 2022-07-13 2022-07-13 Outpatient JENNYSNEHA [id number] Sneha 16:00:00 16:00:00 ANATOLY Seybol d 2022-07-12 2022-07-12 Outpatient PREZAS, SNEHA VELIZ [id number] Sneha 00:00:00 00:00:00 JOHN Seybol d 2022-07-12 2022-07-12 Outpatient PREZAS, SNEHA VELIZ [id number] Sneha 00:00:00 00:00:00 JOHN Seybol d 2022-07-11 2022-07-11 Outpatient LAB90 SNEHA VELIZ [id number] Sneha 17:00:00 17:00:00 Seybol d 2022-07-11 2022-07-11 Outpatient PREZAS, SNEHA VELIZ [id number] Sneha 16:15:00 16:15:00 JOHN Seybol d 2022-07-11 2022-07-11 Outpatient PREZAS, SNEHA VELIZ [id number] Sneha 00:00:00 00:00:00 JOHN Seybol d 2022-07-10 2022-07-10 Outpatient PREZAS, SNEHA VELIZ [id number] Sneha 00:00:00 00:00:00 JOHN Seybol d 2022-07-05 2022-07-05 Outpatient LAB90 SNEHA VELIZ [id number] Sneha 16:45:00 16:45:00 Seybol d 2022-07-05 2022-07-05 Outpatient PREZAS, SNEHA VELIZ [id number] Sneha 15:45:00 15:45:00 JOHN Seybol d 2022-06-30 2022-06-30 Outpatient ARAMIS ABDI [facility] [id number] Univers 09:00:00 09:38:14 ARAMIS GOODWIN [facility] 2022-06-30 2022-06-30 Office Kim PRGILA 1.2.840.114 [id number] Univers 09:00:00 09:38:14 Visit [facility] 350.1.13.10 [facility] 4.2.7.2.686 Rajeev as SHELLI?BLEA [phone] Ca minh[address] OFFICE BUILDING 2022-06-26 2022-06-26 Outpatient SNEHA FERRELL SNEHA [id number] Sneha 00:00:00 00:00:00 JOHN armendariz 2022-06-20 2022-06-20 Outpatient SNEHA FERRELL [id number] Sneha 00:00:00 00:00:00 JOHN armendariz 2022-06-19 2022-06-19 Outpatient Eri TAMAYO [facility] [id number] Univers 15:30:00 15:30:00 PARKER forbes [facility] 2022-06-16 2022-06-16 Outpatient R KIMARAMIS Pires [facility] ANS [id number] Univers 07:54:26 23:59:00 ARAMIS GOODWIN [facility] 2022-06-16 2022-06-16 [facility] KimAramis pires Oskar WALSH 1.2. 840.114 [id number] Univers 07:54:26 23:59:00 Encounter Kimber Mendoza 350.1 .13.10 ity of [address]686 Rajeev as [id number] Medi mihaela [address] 2022-06-16 2022-06-16 Hospital NICO Mendoza 1.2.840.114 [id number] Univers 07:01:00 11:40:00 Encounter Kimber VILLAVICENCIO 350.1.13.10 ity of HOSPITAL 2.7.2.686 Rajeev as [id number] Medi mihaela [address] 2022-06-16 2022-06-16 Surgery Anesthesiol NICO 1.2.840.114 [id number] Univers 08:00:00 09:30:00 ogy SAUD 350.1.13.10 it y of HOSPITAL 42.7.2.686 Rajeev as [id number] Medi mihaela [address] 2022-06-16 2022-06-16 Orders Doctor ROMEO 1.2.840.114 [id number] Univers 00:00:00 00:00:00 Only Unassigned, SAUD 350.1.13.10 ity of [place] [address]686 Rajeev as [id number] [address] 2022-06-15 2022-06-15 Outpatient PREZAS, SNEHA VELIZ [id number] Sneha 00:00:00 00:00:00 JOHN Seybol d 2022-06-13 2022-06-13 Outpatient PREZAS, SNEHA VELIZ [id number] Sneha 00:00:00 00:00:00 JOHN Seybol d 2022-06-07 2022-06-07 Outpatient PREZAS, SNEHA VELIZ [id number] Sneha 15:30:00 15:30:00 JOHN Seybol d 2022-06-02 2022-06-02 Outpatient PREZAS, SNEHA VELIZ [id number] Sneha 00:00:00 00:00:00 JOHN Seybol d 2022-06-02 2022-06-02 Outpatient PREZAS, SNEHA VELIZ [id number] Sneha 00:00:00 00:00:00 JOHN Seybol d 2022-05-31 2022-05-31 Outpatient LAB90 SNEHA VELIZ [id number] Sneha 16:50:00 16:50:00 Seybol d 2022-05-31 2022-05-31 Outpatient PREZAS, SNEHA VELIZ [id number] Sneha 15:30:00 15:30:00 JOHN Seybol d 2022-05-26 2022-05-26 Outpatient R BELKIS [facility] [id number] Univers 11:30[facility]00 [facility]22[facility]26 [facility] 1.2.840.114 [id number] Univers 11:30:00 12:19:14 Visit [facility] 350.1.13.10 it y of [place] 4.2.7.2.686 Rajeev as SHELLI?BLEA [id number] [address] OFFICE [facility] 2022-05-23 2022-05-23 Telephone Kim [facility] 1.2.840.114 [id number] Univers 00:00:00 00:00:00 [facility] 350.1.13.10 ity of [place] 4.2.7.2.686 Rajeev as SHELLI?BLEA [phone] Ca terrance BENITES 0[address] [facility] OFFICE [facility] 2022-05-23 2022-05-23 Telephone Pcp, [facility] 1.2.822.006 [id number] Univers 00:00:00 00:00:00 Palliative PRIMARY 350.1.13.10 it[place] of [place] [id number] [address] 2022-05-17 2022-05-17 Outpatient R AIME [facility] [id number] Univers 08:00:00 08:49:23 MARK ANTHONY forbes [facility] 2022-05-17 2022-05-17 Office Pcp, Palliative Care [facility] 1.2.8 40.114 [id number] Univers 08:00:00 08:49:23 Visit Mark Anthony Salomon PRIMARY 350.1.13.10 [place] [id number] [address] 2022-05-07 2022-05-07 [facility] 1.2.840.114 [id number] Univers 00:00:00 00:00:00 Cris ALEXANDER 350.1.13.10 it[place] of [place] [phone] Ca terrance LINDSAY 044 [facility] 2022-04-04 2022-04-04 Telephone Reji [facility] 1.2.840.114 [id number] Univers 00:00:00 00:00:00 Kimber ALEXANDER 350.1.13.10 it[place] of [place] 4.[place] [id number] [facility] 231 [facility] 2022-03-31 2022-03-31 Outpatient R REJI [facility] [id number] Univers 13:00:00 14:12:14 KIMBER forbes [facility] 2022-03-31 2022-03-31 Office Reji [facility] 1.2.840.114 [id number] Univers 13:00:00 14:12:14 Visit Kimber ALEXANDER 350.1.13.10 [facility] 4.2.[place] [id number] [address] 2022-03-31 2022-03-31 Outpatient R REJI [facility] [id number] Univers 13:00:00 13:00:00 KIMBER forbes [facility] 2022-03-31 2022-03-31 [facility] [id number] Univers 13:00:00 13:00:00 KIMBER forbes [facility] 2022-03-29 2022-03-29 Telephone [facility] 1.2.840.114 [id number] Univers 00:00:00 00:00:00 Kimber ALEXANDER 350.1.13.10 ity [facility] 4.2.[place].2.[place] [id number] [address] 2022-03-21 2022-03-21 Telephone [facility] 1.2.869.985 [id number] Univers 00:00:00 00:00:00 Palliative MULTISPEC 350.1.13.10 ity of Care [place] CENTER [id number] [facility] AND JASMIN [address] [place] [address] [facility] 2022-03-20 2022-03-20 Telephone Reji [facility] 1.2.840.114 [id number] Univers 00:00:00 00:00:00 Kimber ALEXANDER 350.1.13.10 ity [facility] 4.2.[place].2.[place] [id number] [address] 2022-03-14 2022-03-14 Patient Reji [facility] 1.2.840.114 [id number] Univers 00:00:00 00:00:00 Secure Msg Kimber ALEXANDER 350.1.13.10 it[place] of [place] 4.2.7.2.[place] [id number] Me dical NAL 044 [facility] 2022-03-10 2022-03-10 [facility] [id number] Univers 16:01:51 23:59:00 KIMBER ity [facility] 2022-03-10 2022-03-10 Hospital [facility] 1.2.840.114 [id number] Univers 15:30:00 23:59:00 Encounter Kimber ALEXANDER 350.1.13.10 it[place] of [place].2.[place] C[place] [id number] [facility] [address] 2022-03-10 2022-03-10 Preparer Making Department Gerald, Mary Lab Main [facility] 1.2.8 40.114 [id number] Univers 16:15:00 16:30:00 Visit Kimber Mendoza 350.1. 13.10 it[place] of [place] 4.2.7.2.[place] [id number] Ca dical NAL 353 [facility] 2022-03-10 2022-03-10 Office [facility] 1.2.840.114 [id number] Univers 13:00:00 14:27:33 Visit Kimber ALEXANDER 350.1.13.10 it[place] of [place] 4.2.7.2.686 [place] [facility] [id number] Ca dical NAL 231 [facility] 2022-03-10 2022-03-10 Outpatient [facility] [id number] Univers 13:00:00 14:27:33 KIMBER rojasy [facility] 2022-03-10 2022-03-10 Orders Doctor ROMEO 1.2.840.114 [id number] Univers 00:00:00 00:00:00 Only Unassigned, SAUD 350.1.13.10 ity of [place] [facility] 4.2.7.2.686 Rajeev as [id number] [facility] [address] 2022-03-09 2022-03-09 Telephone [facility] 1.2.840.114 9 [id number] Univers 00:00:00 00:00:00 Kimber ALEXANDER 350.1.13.10 [place] of [place] 4.2.[place].2.[place] [id number] Ca dical NAL 044 [facility] 2022-03-02 2022-03-02 Orders Doctor AGUEDA 1.2.840.114 [id number] Univers 00:00:00 00:00:00 Only Unassigned, SAUD 350.1.13.10 ity of [place] HOSPITAL 4.2.7.2.686 Rajeev as [id number] [facility] [address] 2022-03-01 2022-03-01 Patient Evgeny [facility] 1.2.840.114 [id number] Univers 00:00:00 00:00:00 Outreach Felicia ALEXANDER 350.1.13.10 [place] of [place].7.[place] [id number] [facility] 231 [facility] 2022-03-01 2022-03-01 Telephone Reji [facility] 1.2.840.114 [id number] Univers 00:00:00 00:00:00 Kimber ALEXANDER 350.1.13.10 ity of [facility] 4.2.7.2.[place] [id number] [facility] 044 [facility] 2022-02-28 2022-02-28 Transition MISHA Vega 1.2.840.114 [id number] Univers 00:00:00 00:00:00 of Care Jojo HOBBS 350.1.13.10 i ty of [place] 4.2.7.2.686 [place] [id number] [facility] [address] 2022-02-20 2022-02-26 Inpatient X ZACHARY PRGILA CHERYL [id number] Univers 20:31:00 15:22:00 NENITA forbes of [facility] 2022-02-20 2022-02-26 Hospital Ashleyyolandamin Sherrie Felicia [facility] 1 .2.840.114 [id number] Univers 20:31:00 15:22:00 Encounter Nenita Harry 350.1.13.10 ity of [place] 4.2.7.2.686 [facility] [id number] [facility] [address] 2022-02-21 2022-02-21 Outpatient R REJI [facility] [id number] Univers 16:20:00 16:20:00 KIMBER forbes [facility] 2022-02-21 2022-02-21 Outpatient R CRIS WARNER [facility] [id number] Univers 16:00:00 16:00:00 [facility] 2022-[facility]-17 2022-02-17 Telephone [facility] 1.2.840.114 [id number] Univers 00:00:00 00:00:00 Kimber ALEXANDER 350.1.13.10 ity carmelo [facility] 4.[place] [id number] [facility] 044 [facility] 2022-02-16 2022-02-16 Telemedici [facility] 1.2.840.114 [id number] Univers 16:20:00 17:00:00 ne Visit Kimber ALEXANDER 350.1.13.10 ity carmelo [facility] 4.2.[place] [id number] [facility] 231 [facility] 2022-02-16 2022-02-16 Outpatient [facility] [id number] Univers 16:20:00 16:20:00 [facility] 2022-02-15 2022-02-15 Telephone [facility] 1.2.840.114 [id number] Univers 00:00:00 00:00:00 Kimber ALEXANDER 350.1.13.10 ity of [facility] 4.2.7.2.[place] [id number] [facility] 044 [facility] 2022-02-10 2022-02-10 Refill [facility] 1.2.840.114 [id number] Univers 00:00:00 00:00:00 Cris ALEXANDER 350.1.13.10 ity of [facility] 4.2.[place].2.[place] [id number] [facility] 044 [facility] 2022-01-24 2022-01-24 [facility] 1.2.840.114 [id number] Univers 00:00:00 00:00:00 Kimber ALEXANDER 350.1.13.10 ity of [place].2.[place] [id number] [facility] 231 [facility] 2022-01-06 2022-01-09 Outpatient [facility] 1039 [id number] Univers 16:20:00 08:51:46 KIMBER ity [facility] 2022-01-06 2022-01-09 Telemedici [facility] 1.2.840.114 [id number] Univers 16:20:00 08:51:46 ne Visit Kimber ALEXANDER 350.1.13.10 it[place] of [place] 4[place].2.[place] [id number] [address] 2022-01-06 2022-01-06 Outpatient [facility] 1039 [id number] Univers 16:20:00 16:20:00 KIMBER ity [facility] 2021-12-30 2021-12-30 Telephone [facility] 1.2.840.114 [id number] Univers 00:00:00 00:00:00 [facility] 350.1.13.10 it y of [place].2.[place] C[place] - [id number] [facility] [address] 2021-12-28 2021-12-28 [facility] 1.2.840.114 [id number] Univers 00:00:00 00:00:00 Kimber ALEXANDER 350.1.13.10 ity of [facility] 4.2.7.2.[place] [id number] [address] 2021-12-23 2021-12-23 Emergency X [facility] ERT [id number] Univers 19:08:00 23:45:00 KIMBERLYN forbes [facility] 2021-12-23 2021-12-23 Emergency [facility]UN[facility] .2.167.846 [id number] [id number] Univers 19:08:00 23:45:00 Kimberlyn ALEXANDER 350.1.13.10 ity [facility] 4.2.7.2.[place] [id number] [facility] [address] 2021-12-23 2021-12-23 Emergency [facility] ERT [id number] Univers 19:08:00 23:45:00 [facility]LYN [facility] 2021-12-23 2021-12-23 Telephone [facility] .2.840.114 9 [id number] Univers 00:00:00 00:00:00 Kimber ALEXANDER 350.1.13.10 ity [facility] 4.2.7.2.686 [place] [facility] [id number] [address] 2021-12-22 2021-12-22 Outpatient [facility] [id number] Univers 16:00:00 17:20:39 [facility] 2021-12-22 2021-12-22 Office [facility] 1.2.840.114 [id number] Univers 16:00:00 17:20:39 Visit Ellen ALEXANDER 350.1.13.10 i ty [facility] 4.2.7.2.[place] [facility] [id number] [address] 2021-12-22 2021-12-22 Outpatient R [facility] [id number] Univers 16:00:00 17:20:39 ELLEN [facility] 2021-12-22 2021-12-22 Outpatient R [facility] [id number] Univers 16:00:00 16:00:00 ELLEN [facility] 2021-12-22 2021-12-22 Nurse AGUEDA [facility] 1.2.262.943 [id number] Univers 00:00:00 00:00:00 Triage Phani SAUD 350.1.13.10 it y of [facility] 4.2.7.2.686 Rajeev as [id number] [address] 2021-12-22 2021-12-22 Telephone [facility] 1.2.840.114 9 [id number] Univers 00:00:00 00:00:00 Kimber A [place] 350.1.13.10 ity of [place] 4.2.7.2.[place] PROFESS[place] [id number] Ca dical [address] 2021-12-22 2021-12-22 Telephone [facility] 1.2.840.114 9 [id number] Univers 00:00:00 00:00:00 Kimber A [place] 350.1.13.10 ity of [place] 4[place]2.7.2.[place] 146.8291477 Ca dical [address] 2021-12-16 2021-12-16 [facility] 1.2.840.1 [id number] Univers 06:16:21 23:59:00 Encounter Natalie Mcdonald 72403.1.1 ity of [place].7 [place] .3.087747 MD Carrera [facility] 2021-12-16 2021-12-16 Anesthesia Natalie Mcdonald 1.2.840.1 [id number] 78411 [id number] Univers 09:42:00 11:13:00 Event Kassidy Wheeler 41288.1.1 ity of 3.412.2.7 [place] .3.121201 MD Carrera [facility] 2021-12-16 2021-12-16 Travel 1.2.840.1 1.2.650.502 2595 [id number] Univers 00:00:00 00:00:00 90361.1.1 350.1.13.41 ity of 3.412.2.7 2.[place].7.3.698 [place] .3.192658 08Georgina.8 MD Jackson8 [facility] 2021-12-16 2021-12-16 Telephone [facility] 1.2.840.114 [id number] Univers 00:00:00 00:00:00 [facility] 350.1.13.10 ity of [place] 4.2.7.2.686 Rajeev as SHELLI?BLEA [id number] Ca dical KNEY 092 [facility] OFFICE BUILDING 2021-12-16 2021-12-16 Telephone [facility] 1.2.840.114 9 [id number] Univers 00:00:00 00:00:00 Kimberwilliam ALEXANDER 350.1.13.10 ity of [place] 4.2.7.2.686 Rajeeva s MIROSLAVA 298.5554139 Ca dical NAL [address] BUILDING 2021-12-15 2021-12-15 Anesthesia Vamsi, 1.2.840.1 [id number] Univers 23:59:59 23:59:59 Event Yolis Ignacio 87048.1.1 it y of 3.412.2.7 [place] .3.674785 MD Jackson8 [facility] 2021-12-15 2021-12-15 POEM 1.2.840.1 [id number] Univers 13:30:00 14:00:00 Appointmalachi 30211.1.1 i ty of ts 3.412.2.7 [place] .3.315495 .8 [facility] 2021-12-15 2021-12-15 Nurse Hammad 1.2.840.1 [id number] 1000 Univers 00:00:00 00:00:00 Triage Felicia Silver 05879.1.1 ity of 3.412.2.7 [place] .3.426887 MD Jackson8 [facility] 2021-12-14 2021-12-14 Clinical Jenny Aiken 1.2.840.1 [id number] Univers 13:30:00 15:23:57 Support Briana 26811.1.1 it y of 3.412.2.7 [place] .3.818560 MD Jackson8 [facility] 2021-12-14 2021-12-14 Travel 1.2.840.1 1.2.466.326 7187 [id number] Univers 00:00:00 00:00:00 76514.1.1 350.1.13.41 ity of 3.412.2.7 2.[place].7.3.698 [place] .3.041098 084.8 .8 [facility] 2021-12-13 2021-12-13 Outpatient [facility] [id number] Univers 15:45:00 16:30:54 LIBBY [facility] 2021-12-13 2021-12-13 Office [facility] 1.2.324.608 [id number] Univers 15:45:00 16:30:54 Visit Libby ALEXANDER 350.1.13.10 i ty of [facility] 4.2.7.2.[place] PROFESS[place] [id number] Ca dical NAL 419 [facility] 2021-12-13 2021-12-13 Outpatient R [facility]GNATALEECHILDR[facility] [id number] Univers 15:45:00 15:45:00 LIBBY [facility] 2021-12-13 2021-12-13 Travel 1.2.840.1 1.2.467.769 [id number] Univers 00:00:00 00:00:00 37187.1.1 350.1.13.41 ity of 3.412.2.7 2.[place].7.3.698 [place] .3.368005 084.8 MD Jackson8 [facility] 2021-12-13 2021-12-13 Kaila [facility]UN[facility] 1.2.840.114 [id number] Univers 00:00:00 00:00:00 Pierreliv CATHERINE 350.1.13.10 ity of [facility] 4.2.7.2.[place] [id number] Ca dical NAL 044 [facility] 2021-12-08 2021-12-09 [id number] Univers 16:00:00 16:09:40 KIMBER forbes [facility] 2021-12-08 2021-12-09 [facility] 1.2.840.114 [id number] Univers 16:00:00 16:09:40 ne Visit Kimber Adrianne ALEXANDER 350.1.13.10 [facility] [facility] [place] [phone] [address] 2021-12-08 2021-12-08 [id number] Univers 16:00:00 16:00:00 KIMBER [facility] 2021-12-08 2021-12-08 [facility] [id number] Univers 16:00:00 16:00:00 [facility] 2021-12-07 2021-12-[address] [facility] 1.2.840.114 [id number] Univers 00:00:00 00:00:00 Outreach Felicia ALEXANDER [id number] [place] [facility] [place] [id number] [address] 2021-12-02 2021-12-02 [facility] 1.2.840.114 [id number] Univers 00:00:00 00:00:00 Management Kimber ALEXANDER 350.1.13.10 it[place] [id number] Ca dic[address] 2021-12-01 2021-12-01 Telephone [facility] 1.2.840.114 [id number] Univers 00:00:00 00:00:00 Cris ALEXANDER 350.1.13.10 [place] [phone] [facility] 044 [facility] 2021-11-29 2021-11-29 Telephone Theo 2.840.1 [id number] Univers 00:00:00 00:00:00 Litty 27062.1.1 ity of 3.412.2.7 [place] .3.402158 .8 [facility] 2021-11-28 2021-11-28 Anesthesia Laron, 1.2.840.1 [id number] Univers 23:59:59 23:59:59 Event Norris A 31294.1.1 ity of 3.412.2.7 [place] .3.721758 .8 [facility] 2021-11-28 2021-11-28 POEM 1.2.840.1 [id number] Univers 14:00:00 14:30:00 Appointmen 70252.1.1 i ty of ts 3.412.2.7 [place] .3.732163 MD Jackson8 [facility] 2021-11-28 2021-11-28 Patient [facility] 1.2.840.114 [id number] Univers 00:00:00 00:00:00 Secure Msg Kimber ALEXANDER 350.1.13.10 [place] [id number] Ca dical NAL 044 [facility] 2021-11-28 2021-11-28 [facility] 1.2.840.114 [id number] Univers 00:00:00 00:00:00 Secure Msg Kimber A CATHERINE 350.1.13.10 [place] [id number] Ca dical NAL 044 [facility] 2021-11-28 2021-11-28 Orders Doctor AGUEDA 1.2.840.114 [id number] Univers 00:00:00 00:00:00 Only Unassigned, SAUD 350.1.13.10 it[place] [facility] 4.2.7.2.686 Rajeev as [id number] [facility] [address] 2021-11-25 2021-11-25 Office [facility] 1.2.840.114 [id number] Univers 10:00:00 10:30:00 Visit Curtis Mace MULTISPEC 350.1.13.10 [place] [id number] [facility] [place] [address] [facility] 2021-11-25 2021-11-25 Outpatient [facility] [id number] Univers 10:00:00 10:00:00 CURTIS ity of [facility] 2021-11-23 2021-11-23 Telephone [facility] 1.2.840.114 [id number] [facility] 00:00:00 00:00:00 Kimber ALEXANDER 350.1.13.10 ity of [place] [id number] [facility] [address] [facility] 2021-11-21 2021-11-21 Outpatient R NELY MOORE [facility] [id number] Univers 07:01:30 23:59:00 ity of [facility] 2021-11-21 2021-11-21 [facility] Nely Moore [facility] 1.2.840.114 [id number] Univers 07:01:30 23:59:00 Encounter Maci [facility] 350.1. 13.10 ity of [place] [id number] [facility] [address] 2021-11-21 2021-11-21 Outpatient R NELY MOORE [facility] [id number] Univers 07:01:30 23:59:00 ity of [facility] 2021-11-21 2021-11-21 Outpatient R NELY MOORE [facility] [id number] Univers 00:00:00 00:00:00 ity of [facility] 2021-11-21 2021-11-21 [facility] 1.2.840.114 [id number] Univers 00:00:00 00:00:00 Seema ALEXANDER 350.1.13.10 ity of [facility] [place] [id number] [facility] 188 [facility] 2021-11-21 2021-11-21 Telephone Reji [facility] 1.2.840.114 [id number] Univers 00:00:00 00:00:00 Kimber ALEXANDER 350.1.13.10 ity of [facility] [place] [id number] Ca dical NAL 044 [facility] 2021-11-21 2021-11-21 Sherrie Queen [facility] 1.2.840.114 [id number] Univers 00:00:00 00:00:00 CATHERINE 350.1.13.10 i ty of [place] [id number] [facility] [address] [facility] 2021-11-18 2021-11-18 Outpatient R CRIS WARNER [facility] [id number] Univers 15:00:00 15:00:00 CRIS WARNER [facility] 2021-11-16 2021-11-16 Orders Alex 1.2.840.1 [id number] Univers 00:00:00 00:00:00 Only Cherrie Busby 27571.1.1 i ty of 3.412.2.7 [place] .3Renetta941004 .8 [facility] 2021-11-15 2021-11-15 [facility] [id number] Univers 15:30:00 16:42:13 [facility] 2021-11-15 2021-11-15 Office [facility] .2.066.151 [id number] [id number] Univers 15:30:00 16:42:13 Visit Libby ALEXANDER 350.1.13.10 i [place] of [place] [id number] [facility] [address] [facility] 2021-11-15 2021-11-15 Outpatient R [facility] [id number] Univers 15:30:00 15:30:00 [facility] 2021-11-14 2021-11-14 Telephone Miles, 1.2.840.1 [id number] [id number] Univers 00:00:00 00:00:00 Nakeshia U 00725.1.1 i ty of 3.412.2.7 [place] .3.310642 MD Carrera [facility] 2021-11-14 2021-11-14 [facility] 1.2.840.114 [id number] Univers 00:00:00 00:00:00 Cris ALEXANDER 350.1.13.10 it[place] [id number] Ca dical NAL 231 [facility] 2021-11-14 2021-11-14 [facility] 1.2.840.114 [id number] Univers 00:00:00 00:00:00 Secure Msg Kimber ALEXANDER 350.1.13.10 it[place] of [place] 392.2465348 Ca dical NAL 044 [facility] 2021-11-11 2021-11-11 Ancillary EL Miles, 1.2.840.1 [id number] 1091 [id number] Univers 09:15:00 11:00:00 Procedure Sindhuia U 11371.1.1 ity of 3.412.2.7 [place] .3.130932 MD Carrera [facility] 2021-11-11 2021-11-11 Telephone Miles, 1.2.840.1 [id number] [id number] Univers 00:00:00 00:00:00 Nakeshia U 20015.1.1 i ty of 3.412.2.7 [place] .3.849140 MD Carrera [facility] 2021-11-11 2021-11-11 Orders Florencio, 1.2.840.1 [id number] Univers 00:00:00 00:00:00 Only Nicol Dominguez 04724.1.1 ity of 3.412.2.7 [place] .3.939458 MD Carrera [facility] 2021-11-11 2021-11-11 Travel 1.2.840.1 1.2.735.487 1525 [id number] Univers 00:00:00 00:00:00 55517.1.1 350.1.13.41 ity of 3.412.2.7 2.[place].7.3.698 [place] .3.132098 084.8 MD .8 [facility] 2021-11-11 2021-11-11 Telephone [facility] 1.2.840.114 [id number] Univers 00:00:00 00:00:00 Kimber Adrianne [place] 350.1.13.10 ity of [facility] 4.[place] [id number] Ca dical NAL 231 [facility] 2021-11-11 2021-11-11 Telephone [facility] 1.2.840.114 [id number] Univers 00:00:00 00:00:00 Libby BERNARDOTON 350.1.13.10 i ty of [place] 159.8790475 Ca dical NAL 419 [facility] 2021-11-11 2021-11-11 Telephone [facility] 1.2.840.114 [id number] Univers 00:00:00 00:00:00 Kimber BERNARDOTON 350.1.13.10 ity of [facility] 4.2.[place] 130.1523583 Ca dical NAL 044 [facility] 2021-11-11 2021-11-11 Orders Doctor AGUEDA 1.2.840.114 [id number] Univers 00:00:00 00:00:00 Only Unassigned, SAUD 350.1.13.10 ity of [place] [facility] 4.2.7.2.686 Rajeev as [id number] [facility] [address] 2021-11-09 2021-11-09 Telephone [facility] 1.2.840.114 [id number] Univers 00:00:00 00:00:00 Libby Dominguez [place] 350.1.13.10 i ty of [facility] 4.2.[place].2.[place] 160.3291429 Ca dical NAL 419 [facility] 2021-11-08 2021-11-08 Outpatient R [facility]GN[facility] [id number] Univers 16:15:00 17:46:17 LIBBY forbes [facility] 2021-11-08 2021-11-08 Office [facility] 1.2.061.877 [id number] Univers 16:15:00 17:46:17 Visit Libby ALEXANDER 350.1.13.10 i ty [place] 205.9991254 Ca dical ANGÉLICA 419 [facility] 2021-11-08 2021-11-08 Outpatient R CHINOARVINNATALEECHILDR[facility] [id number] Univers 16:15:00 17:46:17 [facility] 2021-11-08 2021-11-08 [facility] [id number] Univers 16:15:00 16:15:00 LIBBY [facility] 2021-11-08 2021-11-08 Patient [facility] 1.2.840.114 [id number] Univers 00:00:00 00:00:00 Secure Msg Kimber ALEXANDER 350.1.13.10 it[place] of [place] [phone] Ca dical NAL 044 [facility] 2021-11-07 2021-11-07 Patient Evgeny [facility] 1.2.840.114 [id number] Univers 00:00:00 00:00:00 Outreach Felicia ALEXANDER 350.1.13.10 ity of [facility] 4.2.7.2.[place] [phone] Ca dical NAL 231 [facility] 2021-11-04 2021-11-04 Telemedici [facility]UN[facility] 1.2.840.114 [id number] Univers 16:00:00 17:00:00 ne Visit Kimber ALEXANDER 350.1.13.10 ity of [facility] 4.2.7.2.[place] [phone] Ca dical NAL [address] [facility] 2021-11-04 2021-11-04 Outpatient Eri [facility] [id number] Univers 16:00:00 16:00:00 KIMBER [facility] 2021-11-04 2021-11-04 Outpatient Eri [facility] [id number] Univers 16:00:00 16:00:00 KIMBER [facility] 2021-11-04 2021-11-04 Outpatient Eri [facility] [id number] Univers 16:00:00 16:00:00 [facility] 2021-11-03 2021-11-03 Telephone Alex, 1.2.840.1 [id number] Univers 00:00:00 00:00:00 Nakeshia U 85874.1.1 i ty of 3.412.2.7 [place] .3.201536 .8 [facility] 2021-11-03 2021-11-03 Telephone Theo 1.2.840.1 [id number] [id number] Univers 00:00:00 00:00:00 Litty 41461.1.1 ity of 3.412.2.7 [place] .3.771630 .8 [facility] 2021-11-02 2021-11-02 [facility] 1.2.840.114 [id number] Univers 00:00:00 00:00:00 [facility] 350.1.13.10 ity of [place] 4.2.7.2.686 Rajeev as SHELLI?BLEA 534.4208293 Ca dical NEREIDAEY [address] [facility] 2021-11-02 2021-11-02 Telephone Timmy [facility] 1.2.840.114 [id number] Univers 00:00:00 00:00:00 Cris ALEXANDER 350.1.13.10 ity of [facility] 4.2.7.2.[place] [phone] Ca dical NAL [address] [facility] 2021-11-01 2021-11-01 Outpatient ARAMIS ABDI [facility] [id number] Univers 16:12:12 23:59:00 ARAMIS GOODWIN [facility] 2021-11-01 2021-11-01 Preparer Making Department Lab, Ang - Db [facility] 1.2.840.1 14 [id number] Univers 16:30:00 16:45:00 Visit Aramis Goodwin [facility] 350.1.13. 10 ity of [place] 4.2.7.2.686 Rajeev as SHELLI?BLEA 176.9375754 Ca dical KNEY [address] [facility] OFFICE [facility] 2021-11-01 2021-11-01 Outpatient ARAMIS ABDI [facility] [id number] Univers 15:00:00 16:03:20 ARAMIS GOODWIN [facility] 2021-11-01 2021-11-01 Office [facility] 1.2.840.114 [id number] Univers 15:00:00 16:03:20 Visit [facility] 350.1.13.10 ity of [place] 4.2.7.2.686 Rajeev as SHELLI?BLEA [phone] Ca dical KNEY [address] [facility] 2021-11-01 2021-11-01 Outpatient R ARAMIS GOODWIN [facility] [id number] Univers 15:00:00 16:03:20 ARAMIS GOODWIN [facility] 2021-10-31 2021-10-31 Patient Timmy [facility] 1.2.840.114 [id number] Univers 00:00:00 00:00:00 Secure Msg Ogechukwu [place] 350.1.13.10 ity [facility] 4.2.7.2.[place] [phone] Ca dical NAL 225 [facility] 2021-10-28 2021-10-28 Orders Alex, 1.2.840.1 [id number] Univers 00:00:00 00:00:00 Only Cherrie Busby 26568.1.1 i ty of 3.412.2.7 [place] .3.444507 .8 [facility] 2021-10-26 2021-10-26 Office [facility] 1.2.840.114 [id number] Univers 13:00:00 14:00:00 Visit Miguel Ángel MAZARIEGOS 350.1.13.10 i ty of [facility] 4.2.7.2.686 [place] [id number] [address] 2021-10-26 2021-10-26 Outpatient [facility] [id number] Univers 13:00:00 13:00:00 MIGUEL ÁNGEL itcal [facility] 2021-10-26 2021-10-26 Outpatient [facility] [id number] Univers 13:00:00 13:00:00 [facility] 2021-10-26 2021-10-26 Outpatient R [facility] [id number] Univers 13:00:00 13:00:00 MIGUEL ÁNGEL cal [facility] 2021-10-26 2021-10-26 Patient [facility] 1.2.840.114 [id number] Univers 00:00:00 00:00:00 Secure Msg Ogechukwu [place] 350.1.13.10 ity of [place] 358.5828851 Ca dical NAL [address] [place] [address] 2021-10-26 2021-10-26 [facility] 1.2.840.114 [id number] Univers 00:00:00 00:00:00 Ogechukwu [place] 350.1.13.10 ity of [facility] 4.2.7.2.[place] 296.0354188 Ca dical NAL [address] [place] [address] 2021-10-26 2021-10-26 Patient [facility] 1.2.840.114 [id number] Univers 00:00:00 00:00:00 Secure Msg Ogechukwu [place] 350.1.13.10 ity of [facility] 4.2.7.2.[place] [phone] Ca dical NAL [address] [place] [address] 2021-10-26 2021-10-26 [facility]ill [facility] 1.2.840.114 [id number] Univers 00:00:00 00:00:00 Ogsonialiv [place] 350.1.13.10 ity of [place] 4.2.7.2.[place] [phone] Ca minhteresa [facility] 044 [facility] 2021-10-25 2021-10-25 Outpatient R ARAMIS GOODWIN [facility] [id number] Univers 15:40:00 15:40:00 ARAMIS GOODWIN ity [facility] 2021-10-25 2021-10-25 Telephone Theo, 1.2.840.1 [id number] Univers 00:00:00 00:00:00 Litty 91999.1.1 ity of 3.412.2.7 [place] .3.401434 .8 [facility] 2021-10-24 2021-10-24 Telephone Lavon Cueto 1.2.840.1 [id number] Univers 00:00:00 00:00:00 28587.1.1 ity of 3.412.2.7 [place] .3.106233 .8 [facility] 2021-10-22 2021-10-22 Telephone Reji [facility] 1.2.840.114 [id number] Univers 00:00:00 00:00:00 Kimber ALEXANDER 350.1.13.10 ity of [facility] 4.2.7.2.[place] [phone] Ca terrance LINDSAY 231 [facility] 2021-10-21 2021-10-21 Outpatient R CRIS WARNER [facility] [id number] Univers 15:55:47 23:59:00 CRIS WARNER ity [facility] 2021-10-21 2021-10-21 [facility] 1.2.209.400 [id number] Univers 15:45:00 23:59:00 [facility] Cris ALEXANDER 350.1.13.10 ity of [place].2.7.2.[place] C[place] [phone] [facility] [address] [place] [address] 2021-10-21 2021-10-21 Outpatient R CRIS WARNER [facility] [id number] Univers 13:30:00 15:24:01 CRIS WARNER ity of [facility] 2021-10-21 2021-10-21 Office Timmy [facility] 1.2.840.114 [id number] Univers 13:30:00 15:24:01 Visit Cirs ALEXANDER 350.1.13.10 ity of [place] 4.2.7.2.[place] [id number] Ca dicteresa LINDSAY [address] [place] [address] 2021-10-19 2021-10-19 Telephone Timmy [facility] 1.2.840.114 [id number] Univers 00:00:00 00:00:00 Cris ALEXANDER 350.1.13.10 ity of [place] 4.2.7.2.[place] [id number] Ca dicteresa LINDSAY [address] [place] [address] 2021-10-19 2021-10-19 Telephone Timmy [facility] 1.2.840.114 [id number] Univers 00:00:00 00:00:00 Cris ALEXANDER 350.1.13.10 ity of [place] 4[place]7.2.[place] [id number] Ca dicteresa LINDSAY [address] [place] [address] 2021-10-18 2021-10-18 Telephone Lavon Cueto 1.2.840.1 [id number] Univers 00:00:00 00:00:00 62131.1.1 ity of 3.412.2.7 [place] .3.334775 MD Jackson8 [facility] 2021-10-18 2021-10-18 Refill Timmy [facility] 1.2.840.114 [id number] Univers 00:00:00 00:00:00 Cris ALEXANDER 350.1.13.10 ity of [place] 4.2.7.2.[place] 608.0833522 Ca dicteresa NAL [address] [place] [address] 2021-10-13 2021-10-13 Telephone Timmy [facility] 1.2.840.114 [id number] Univers 00:00:00 00:00:00 Ogechukwu [place] 350.1.13.10 ity of [place] 4.2.7.2.[place] [id number] Ca dical NAL 231 [facility] 2021-10-13 2021-10-13 Telephone [facility] 1.2.840.114 [id number] Univers 00:00:00 00:00:00 Ogechukwu [place] 350.1.13.10 ity of [place] 4.2.7.2.[place] [phone] Ca dical NAL 044 [facility] 2021-10-12 2021-10-12 Telephone [facility] 1.2.981.822 [id number] Univers 00:00:00 00:00:00 Miguel Ángel MAZARIEGOS 350.1.13.10 i ty of [facility] 4.2.7.2.686 [place] 076.6207898 [facility] [address] 2021-10-11 2021-10-11 Patient Timmy [facility] 1.2.840.114 [id number] Univers 00:00:00 00:00:00 Secure Msg Ogechukwu [place] 350.1.13.10 ity of [place] 4.2.7.2.[place] 503.9708980 [facility] 044 [facility] 2021-10-11 2021-10-11 Telephone [facility] 1.2.934.011 [id number] Univers 00:00:00 00:00:00 Dimitri Loosecubes 350.1.13.10 it y of [place] 4[place]2.7.2.[place] C[place] - [phone] [facility] [address] 2021-10-11 2021-10-11 Patient Timmy [facility] 1.2.840.114 [id number] Univers 00:00:00 00:00:00 Secure Msg Ogechukwu [place] 350.1.13.10 ity of [place] 4.2.7.2.[place] 347.0406803 Ca dical NAL 044 [facility] 2021-10-10 2021-10-10 Patient Timmy [facility] 1.2.840.114 [id number] Univers 00:00:00 00:00:00 Secure Msg Ogechukwu [place] 350.1.13.10 ity of [place] 4.2.7.2.[place] [id number] Ca dical NAL [address] [place] [address] 2021-10-10 2021-10-10 Patient Timmy [facility] 1.2.840.114 [id number] Univers 00:00:00 00:00:00 Secure Msg Ogechukwu [place] 350.1.13.10 ity of [place] 4.2.7.2.[place] 096.0016117 Ca dical NAL [address] [place] [address] 2021-10-10 2021-10-10 Patient Timmy [facility] 1.2.840.114 [id number] Univers 00:00:00 00:00:00 Secure Msg Ogechukwu [place] 350.1.13.10 ity of [place] 4.2.7.2.[place] [id number] Ca dical NAL [address] [place] [address] 2021-10-10 2021-10-10 Telephone [facility] 1.2.840.114 [id number] Univers 00:00:00 00:00:00 Ogechukwu [place] 350.1.13.10 ity of [place] 4.2.7.2.686 [place] 777.1619923 Ca dical NAL [address] [place] [address] 2021-10-10 2021-10-10 [facility] 1.2.840.114 [id number] Univers 00:00:00 00:00:00 Ogechukwu [place] 350.1.13.10 ity of [place] 4.2.7.2.686 [place] 365.0360788 Ca dical NAL [address] [place] [address] 2021-10-07 2021-10-07 Outpatient R CRIS WARNER [facility] [id number] Univers 15:00:00 17:04:53 CRIS WARNER ity [facility] 2021-10-07 2021-10-07 Outpatient R PIERRE WARNERStephanyQi [facility] [id number] Univers 15:00:00 17:04:53 CRIS WARNER ity [facility] 2021-10-07 2021-10-07 Office Timmy [facility] 1.2.840.114 [id number] Univers 15:00:00 17:04:53 Visit Cris ALEXANDER 350.1.13.10 ity of [place] 4[place]2.7.2.[place] 254.8992148 Ca dical NAL 044 [facility] 2021-10-07 2021-10-07 Outpatient R PIERRE WARNERStephanyQi [facility] [id number] Univers 15:00:00 17:04:53 CRIS WARNER ity [facility] 2021-10-07 2021-10-07 Orders Doctor AGUEDA 1.2.840.114 [id number] Univers 00:00:00 00:00:00 Only Unassigned, SAUD 350.1.13.10 [place] [facility] 4.2.7.2.686 Rajeev as [id number] [address] 2021-10-04 2021-10-04 Preparer Making Department Gerald, Adc Lab Main [facility] 1.2.8 40.114 [id number] Univers 12:30:00 12:45:00 Visit Cris WarnerLANNY 350.1.13.1 0 ity of [facility] 4.2.7.2.[place] [phone] Ca dical NAL 353 [facility] 2021-10-04 2021-10-04 Outpatient R TIMMY CRIS [facility] [id number] Univers 11:00:00 12:11:47 TIMMYCRIS ity [facility] 2021-10-04 2021-10-04 Outpatient R RCIS WARNER [facility] [id number] Univers 11:00:00 12:11:47 CRIS WARNER ity of [facility] 2021-10-04 2021-10-04 Office Timmy [facility] 1.2.840.114 [id number] Univers 11:00:00 12:11:47 Visit Cris ALEXANDER 350.1.13.10 ity of [place] 4.2.7.2.686 [place] 613.0377346 Ca dical NAL [facility] Branch BUILDING 2021-09-26 2021-09-26 Consult BAO Morgan, 1.2.840.1 [id number] Univers 09:00:00 10:10:42 Tigist 58986.1.1 ity of 3.412.2.7 [place] .3.753505 MD Carrera [facility] 2021-09-26 2021-09-26 Travel 1.2.840.1 1.2.524.319 [id number] Univers 00:00:00 00:00:00 75215.1.1 350.1.13.41 ity of 3.412.2.7 2[place].3.698 [place] .3.494709 084.8 MD Carrera [facility] 2021-09-21 2021-09-21 Documentat Amber, 1.2.840.1 [id number] Univers 00:00:00 00:00:00 piter Chopra 38106.1.1 i ty of 3.412.2.7 [place] .3.268676 MD Carrera [facility] 2021-09-20 2021-09-20 [facility] 1.2.840.1 [id number] Univers 00:00:00 00:00:00 Only Cherrie Busby 04173.1.1 i ty of 3.412.2.7 [place] .3.317167 MD Carrera [facility] 2021-09-16 2021-09-16 [facility] 1.2.840.1 [id number] Univers 12:50:59 23:59:00 Encounter Cherrie Busby 66916.1.1 ity of 3.412.2.7 [place] .3.272142 MD Carrera [facility] 2021-09-16 2021-09-16 Clinical [facility], 1.2.840.1 [id number] Univers 16:00:00 16:00:00 Support Cherrie Busby 41391.1.1 i ty of 3.412.2.7 [place] .3.641491 MD Carrera [facility] 2021-09-16 2021-09-16 [facility], .2.840.1 [id number] Univers 10:19:45 12:49:00 Encounter Cherrie Busby 27060.1.1 ity of 3.412.2.7 [place] .3.099440 MD Carrera [facility] 2021-09-16 2021-09-16 [facility], 1.2.840.1 [id number] Univers 09:20:00 10:15:48 Visit Cherrie Busby 05161.1.1 i ty of 3.412.2.7 [place] .3.893318 MD Carrera [facility] 2021-09-16 2021-09-16 [facility] 1.2.840.1 [id number] Univers 08:00:00 08:00:00 07059.1.1 ity of 3.412.2.7 [place] .3.258202 MD Carrera [facility] 2021-09-16 2021-09-16 Travel 1.2.840.1 1.2.652.384 [id number] Univers 00:00:00 00:00:00 41836.1.1 350.1.13.41 ity of 3.412.2.7 2.[place]7.3.698 [place] .3.195819 084.8 MD Carrera [facility] 2021-09-14 2021-09-14 [facility], 1.2.840.1 [id number] [id number] Univers 00:00:00 00:00:00 [place] U 44487.1.1 i ty of 3.412.2.7 [place] .3.842699 MD Carrera [facility] 2021-08-26 2021-08-26 Orders Miles, 1.2.840.1 [id number] Univers 00:00:00 00:00:00 Only Cherrie Bsuby 10778.1.1 i ty of 3.412.2.7 [place] .3.066283 MD Carrera [facility] 2021-08-26 2021-08-26 Documentat Osmany, 1.2.840.1 [id number] Univers 00:00:00 00:00:00 ion Alisha 81433.1.1 ity of [place] 3.412.2.7 [place] .3.836144 MD Carrera [facility] 2021-08-22 2021-08-22 Telephone Tameka, 1.2.840.1 [id number] Univers 00:00:00 00:00:00 Latcarley 01463.1.1 ity of 3.412.2.7 [place] .3.391171 MD Carrera [facility] 2021-08-21 2021-08-21 Emergency UR Casey, 1.2.840.1 [id number] Univers 17:47:00 19:00:00 Thomas 87341.1.1 ity of 3.412.2.7 [place] .3.651382 MD Carrera [facility] 2021-08-21 2021-08-21 Travel 1.2.840.1 1.2.101.075 [id number] Univers 00:00:00 00:00:00 83793.1.1 350.1.13.41 ity of 3.412.2.7 2.[place]7.3.698 [place] .3.614030 084.8 MD Carrera [facility] 2021-08-21 2021-08-21 Telephone Hammad, 1.2.840.1 [id number] Univers 00:00:00 00:00:00 Felicia Silver 38859.1.1 ity of 3.412.2.7 [place] .3.863177 MD Jackson8 [facility] 2021-08-20 2021-08-20 Emergency ER Casey, 1.2.840.1 [id number] [id number] [facility] 17:29:00 23:20:00 Thomas 44164.1.1 ity of 3.412.2.7 [place] .3.897393 MD Jackson8 [facility] 2021-08-20 2021-08-20 Emergency EL CASEY, MDA [facility] [id number] [place] 19:48:21 20:26:12 THOMAS Jaime jefferson 2021-08-20 2021-08-20 Travel 1.2.840.1 1.2.938.649 [id number] [id number] [facility] 00:00:00 00:00:00 30930.1.1 350.1.13.41 ity of 3.412.2.7 2.[place]7.3.698 [place] .3.673762 084.8 MD Jackson8 [facility] 2021-08-19 2021-08-19 Travel 1.2.840.1 1.2.688.999 [id number] [id number] [facility] 00:00:00 00:00:00 31229.1.1 350.1.13.41 ity of 3.412.2.7 2.[place]7.3.698 [place] .3.737111 084.8 MD Carrera [facility] 2021-08-18 2021-08-18 Office Fernando Kirkland [facility] 1.2.610.004 [id number] [facility] 13:00:00 15:14:26 Visit Aldo AMBULATOR 350.1.13.21 College Y 0.2.7.2.686 of [id number] Medi eugenia 300 e 2021-08-17 2021-08-17 Telephone Arro, 1.2.840.1 [id number] [facility] 00:00:00 00:00:00 Jennifer Armendariz 59478.1.1 i ty of 3.412.2.7 [place] .3.801818 MD Carrera [facility] 2021-08-16 2021-08-16 Reffaisal Villalobos, 1.2.840.1 [id number] 5118 [employer] 00:00:00 00:00:00 Dominga Hameed 37993.1.1 ity of 3.412.2.7 [place] .3.278871 MD Carrera [facility] 2021-08-13 2021-08-14 Emergency UR Osvaldo Vidal 1.2.840.1 1010 85600 [id number] Univers 19:56:00 09:37:00 Dominga Villalobos 50553.1.1 ity of 3.412.2.7 [place] .3.028600 MD Jackson8 [facility] 2021-08-14 2021-08-14 Travel 1.2.840.1 1.2.746.156 4356 [id number] Univers 00:00:00 00:00:00 70076.1.1 350.1.13.41 ity of 3.412.2.7 2.[place].7.3.698 [place] .3.266373 084.8 MD Jackson8 [facility] 2021-08-13 2021-08-13 Travel 1.2.840.1 1.2.162.636 1233 [id number] Univers 00:00:00 00:00:00 17924.1.1 350.1.13.41 ity of 3.412.2.7 [place].3.698 [place] .3.832748 084.8 .8 [facility] 2021-07-27 2021-07-27 Telephone Bev John 1.2.840.11 4 [id number] [place] 00:00:00 00:00:00 Bev John 350.1.13.58 Health Medical 9.2.7.2.686 [place] [id number] 1 2021-07-27 2021-07-27 Nurse Jayla Roblero 1.2.840.11 4 [id number] [place] 00:00:00 00:00:00 Triage Jayla Roblero 350.1.13.58 Health MEDICAL 9.2.7.2.686 CENTER [id number] 0 2021-07-26 2021-07-26 Outpatient VIRGINIA_Eri [facility] [address] [place] 12:24:00 12:24:00 1228 [facility] 2021-07-25 2021-07-25 Telephone MonadaleLuz 1.2.840.1 14 [id number] [place] 00:00:00 00:00:00 MonadaleLuz 350.1.13.58 Health MEDICAL 9.2.7.2.686 [place] [phone] 0 2021-07-25 2021-07-25 Telephone Mira Garcia 1.2.84 0.114 [id number] [place] 00:00:00 00:00:00 Mira Garcia 350.1.13.58 Health Medical 9.2.7.2.686 [place] 531.0430935 1 2021-07-15 2021-07-15 Orders Bev John 1.2.840.114 [id number] [place] 00:00:00 00:00:00 Only Bev John 350.1.13.58 Health Medical 9.2.7.2.686 [place] [id number] 1 2021-07-14 2021-07-14 Telephone Randee Gonzalez 1.2.840 .114 [id number] [place] 00:00:00 00:00:00 Randee Gonzalez 350.1.13.58 Health MEDICAL 9.2.7.2.686 [place] [id number] 0 2021-07-13 2021-07-13 Patient Tiffany Moscoso 1.2.840.114 [id number] [place] 00:00:00 00:00:00 Outreach Tiffany Moscoso 350.1.13.58 Health Medical 9.2.7.2.686 [place] [id number] 1 2021-07-13 2021-07-13 Finesse Johnson 1.2.376.917 9599 69191 [place] 00:00:00 00:00:00 Only Nomi [place] 350.1.13.58 H ealth Medical 9.2.7.2.686 [place] 452.2971205 1 2021-07-13 2021-07-13 Orders Finesse Grimm 1.2.124.738 5222 30026 [place] 00:00:00 00:00:00 Only Nomi [place] 350.1.13.58 H ealth Medical 9.2.7.2.686 [place] 615.4878245 1 2021-07-13 2021-07-13 Telephone [facility] Hart[facility] 1.2.840.1 14 [id number] [place] 00:00:00 00:00:00 Fani Hartley 350.1.13.58 Health MEDICAL 9.2.7.2.686 CENTER [id number] 0 2021-07-13 2021-07-13 Telephone John, Bev Kilpatrick 1.2.840.11 4 [id number] [place] 00:00:00 00:00:00 Bev John 350.1.13.58 Health Medical 9.2.7.2.686 [place] 540.5463853 1 2021-07-12 2021-07-12 Office Finesse Grimm 1.2.025.578 1720 66222 [place] 15:00:00 16:31:54 Visit Nomi [place]esse 350.1.13.58 H ealth Medical 9.2.7.2.686 [place] 264.8501623 1 2021-07-08 2021-07-08 Orders Finesse Grimm 1.2.729.187 3618 33438 [place] 00:00:00 00:00:00 Only Nomi Sanchezaire 350.1.13.58 H ealth Medical 9.2.7.2.686 [place] [id number] 1 2021-07-08 2021-07-08 Telephone Sirisha Finesse 1.2.840.114 13 [id number] [place] 00:00:00 00:00:00 Nomi [place] 350.1.13.58 H ealth Medical 9.2.7.2.686 [place] [id number] 1 2021-07-07 2021-07-07 Telephone SirishaFinesse sarah 1.2.840.114 13 [id number] [place] 00:00:00 00:00:00 Nomi [place] 350.1.13.58 H ealt Medical 9.2.7.2.686 [place] [id number] 1 2021-06-17 2021-06-17 Telephone Tram Alonso [facility] 1.2.840.11 4 [id number] [place] 00:00:00 00:00:00 Tram Alonso 350.1.13.58 Health MEDICAL 9.2.7.2.686 [place] [id number] 0 2021-06-17 2021-06-17 Orders Finesse Grimm 1.2.084.949 4901 73052 [place] 00:00:00 00:00:00 Only Nomi [place] 350.1.13.58 H ealt Medical 9.2.7.2.686 [place] [id number] 1 2021-06-17 2021-06-17 Orders Sirisha Finesse 1.2.614.355 4329 11614 [place] 00:00:00 00:00:00 Only Nomi [place] 350.1.13.58 H ealt Medical 9.2.7.2.686 [place] 364.0382850 1 2021-06-17 2021-06-17 Orders John Bev Deonmary 1.2.840.114 [id number] [place] 00:00:00 00:00:00 Only Bev Johne 350.1.13.58 Health Medical 9.2.7.2.686 [place] 610.0757568 1 2021-06-09 2021-06-09 Orders Finesse Grimm 1.2.203.823 4346 50762 [place] 00:00:00 00:00:00 Only Nomi [place] 350.1.13.58 H ealt Medical 9.2.7.2.686 [place] [id number] 1 2021-06-09 2021-06-09 Orders Finesse Grimm 1.2.329.111 1327 80917 [place] 00:00:00 00:00:00 Only Nomi Sanchezaire 350.1.13.58 H ealth Medical 9.2.7.2.686 [place] [id number] 1 2021-06-09 2021-06-09 Finesse Alcantara 1.2.840.114 12 [id number] [place] 00:00:00 00:00:00 Nomi [place] 350.1.13.58 H ealth Medical 9.2.7.2.686 [place] 135.4080581 1 2021-06-07 2021-06-07 Finesse Johnson 1.2.419.490 8558 24710 [place] 00:00:00 00:00:00 Only Nomi Sanchezaire 350.1.13.58 H ealt Medical 9.2.7.2.686 [place] 668.2809284 1 2021-06-07 2021-06-07 Refill Dalia Picacho [facility] 1.2.84 0.114 [id number] [place] 00:00:00 00:00:00 Selam Gómez [place] 350.1.13.58 Health MEDICAL 9.2.7.2.686 CENTER [id number] 0 2021-06-07 2021-06-07 Finesse Johnson 1.2.583.980 0507 [id number] [place] 00:00:00 00:00:00 Only Nomi [place] 350.1.13.58 H ealth Medical 9.2.7.2.686 [place] [id number] 1 2021-06-07 2021-06-07 Refill Finesse Grimm 1.2.525.322 1740 20649 [place] 00:00:00 00:00:00 Nomi [place] 350.1.13.58 H ealth Medical 9.2.7.2.686 [place] [id number] 1 2021-06-07 2021-06-07 Telephone October [facility] JEFF 1.2.840.1 14 [id number] [place] 00:00:00 00:00:00 October [place] 350.1.13.58 Health MEDICAL 9.2.7.2.686 CENTER [id number] 0 2021-06-03 2021-06-03 Nurse Natalya Toribio DAFNE AGUILAR 1.2.840.114 [id number] [place] 00:00:00 00:00:00 Triage Natalya Toribio 350.1.13.58 [facility] MEDICAL 9.2.7.2.686 [place] [id number] 0 2021-06-03 2021-06-03 Orders SirishaFinesse 1.2.909.504 8634 22405 [place] 00:00:00 00:00:00 Only Nomi [place] 350.1.13.58 H ealth Medical 9.2.7.2.686 [place] [id number] 1 2021-05-25 2021-05-25 Refill Sirisha Deonmary 1.2.180.396 2332 38245 [place] 00:00:00 00:00:00 Nomi [place] 350.1.13.58 H ealth Medical 9.2.7.2.686 [place] [id number] 1 2021-05-25 2021-05-25 Telephone SirishaDeonmary 1.2.840.114 12 [id number] [place] 00:00:00 00:00:00 Nomi [place] 350.1.13.58 H ealth Medical 9.2.7.2.686 [place] [id number] 1 2021-05-20 2021-05-20 Orders Sirisha Finesse 1.2.903.910 8404 02366 [place] 00:00:00 00:00:00 Only Nomi [place] 350.1.13.58 H ealth Medical 9.2.7.2.686 [place] [id number] 1 2021-05-18 2021-05-18 Refill SirishaDeonmary 1.2.103.480 1323 21087 [place] 00:00:00 00:00:00 Nomi [place] 350.1.13.58 H ealth Medical 9.2.7.2.686 [place] [id number] 1 2021-05-11 2021-05-11 Telephone Sendy Aguilar 1.2.840.1 14 [id number] [place] 00:00:00 00:00:00 Sendy Aguilar FARHAD 350.1.13.58 Health MEDICAL 9.2.7.2.686 CENTER [id number] 0 2021-05-11 2021-05-11 Telephone Randee Gonzalez DAFNE JEFF 1.2.840 .114 [id number] [place] 00:00:00 00:00:00 Randee Gonzalez FARHAD 350.1.13.58 Health MEDICAL 9.2.7.2.686 [place] [id number] 0 2021-05-11 2021-05-11 Refill Sirisha DAFNE 1.2.840.114 [id number] [id number] PR 00:00:00 00:00:00 Nomi BELLAIRE 350.1.13.58 H ealth MEDICAL 9.2.7.2.686 [facility] [id number] 4 2021-05-11 2021-05-11 Orders Finesse Grimm 1.2.855.046 [id number] [id number] PR 00:00:00 00:00:00 Only Nomi [place] 350.1.13.58 H ealth Medical 9.2.7.2.686 [place] [id number] 1 2021-05-11 2021-05-11 Telephone Finesse Grimm 1.2.840.114 12 [id number] PR 00:00:00 00:00:00 Nomi [place] 350.1.13.58 H ealth Medical 9.2.7.2.686 [place] [id number] 1 2021-04-28 2021-04-28 Orders Finesse Grimm 1.2.004.073 0271 [id number] PR 00:00:00 00:00:00 Only Nomi [place] 350.1.13.58 H ealth Medical 9.2.7.2.686 [place] [id number] 1 2021-04-27 2021-04-27 Telephone Curtis Eric [place] 1.2.840.1 14 [id number] PR 00:00:00 00:00:00 Curtis Eric 350.1.13.58 Health MEDICAL 9.2.7.2.686 [place] [id number] 0 2021-04-27 2021-04-27 Orders Bev John 1.2.840.114 [id number] [place] 00:00:00 00:00:00 Only Bev John 350.1.13.58 Health Medical 9.2.7.2.686 [place] 466.8545755 1 2021-04-26 2021-04-26 Refill Finesse Grimm 1.2.873.223 3194 [id number] [place] 00:00:00 00:00:00 Nomi [place] 350.1.13.58 H ealth Medical 9.2.7.2.686 [place] 334.1073051 1 2021-04-22 2021-04-22 Telephone Finesse Grimm 1.2.840.114 12 [id number] [place] 00:00:00 00:00:00 Nomi [place] 350.1.13.58 H ealth Medical 9.2.7.2.686 [place] [id number] 1 2021-04-13 2021-04-13 Refill Finesse Grimm 1.2.811.983 9519 72050 [place] 00:00:00 00:00:00 Nomi [place] 350.1.13.58 H ealth Medical 9.2.7.2.686 [place] [id number] 1 2021-04-11 2021-04-11 Orders Finesse Grimm 1.2.714.738 [id number] [id number] [place] 00:00:00 00:00:00 Only Nomi [place] 350.1.13.58 H ealth Medical 9.2.7.2.686 [place] 624.2878362 1 2021-04-10 2021-04-10 Telephone Yari Potter [place] 1.2.840. 114 [id number] [place] 00:00:00 00:00:00 GeninSaludYari [place] 350.1.13.58 Health MEDICAL 9.2.7.2.686 [place] [id number] 0 2021-03-30 2021-03-30 Refill DAFNE Grimm 1.2.840.114 [id number] 0087 [place] 00:00:00 00:00:00 Nomi HESSE 350.1.13.58 H ealt MEDICAL 9.2.7.2.686 [facility] [id number] 4 2021-03-30 2021-03-30 Refill Finesse Grimm 1.2.625.990 9527 [id number] [place] 00:00:00 00:00:00 Nomi Sanchezaire 350.1.13.58 H ealt Medical 9.2.7.2.686 [place] [id number] 1 2021-03-30 2021-03-30 [facility] Finesse Grimm 1.2.813.256 5364 [id number] PR 00:00:00 00:00:00 Only Nomi [place] 350.1.13.58 [facility] 9.2.7.2.686 [place] [id number] 1 2021-03-30 2021-03-30 Telephone Mira Celeste 1.2.840 .114 [id number] PR 00:00:00 00:00:00 Mira Celeste 350.1.13.58 Health MEDICAL 9.2.7.2.686 [place] [id number] 0 2021-03-30 2021-03-30 Telephone Finesse Grimm 1.2.840.114 12 [id number] PR 00:00:00 00:00:00 Nomi Sanchezaire 350.1.13.58 H ealt Medical 9.2.7.2.686 [place] [id number] 1 2021-03-16 2021-03-16 Refill Finesse Grimm 1.2.490.057 1111 [id number] PR 00:00:00 00:00:00 Nomi [place] 350.1.13.58 H ealt Medical 9.2.7.2.686 [place] 382.0691412 1 2021-03-16 2021-03-16 Telephone Danielle Lagos 1.2.840.1 14 [id number] [place] 00:00:00 00:00:00 Danielle Lagos 350.1.13.58 Health MEDICAL 9.2.7.2.686 [place] [id number] 0 2021-03-16 2021-03-16 Finesse Johnson 1.2.903.292 3372 [id number] [place] 00:00:00 00:00:00 Only Nomi Alvarez 350.1.13.58 H ealt Medical 9.2.7.2.686 [place] [id number] 1 2021-03-16 2021-03-16 Finesse Johnson 1.2.818.993 9674 41264 [place] 00:00:00 00:00:00 Only Nomi Alvarez 350.1.13.58 [facility] 9.2.7.2.686 [place] [id number] 1 2020-06-30 2020-06-30 Aaron GRIMM [facility] [id number] [place] 16:00:00 16:00:00 t; Dayo KRUSE M.D. [place] KRUSE M.D. 2018-12-02 2018-12-02 [facility] [id number] 563 [place] 13:00:00 13:00:00 t; Family Edward KRUSE i, M.D. [facility] ephraim KRUSE M.D. 2017-08-03 2017-08-03 [facility] [id number] [place] 14:30:00 14:30:00 t; Norah KRUSE i, M.D. Specialty ephraim KRUSE M.D. 2017-06-20 2017-06-20 Aaron GRIMM [facility] [id number] [place] 11:30:00 11:30:00 t; Edward KRUSE i, M.D. ans NORMAN, M.D. 2017-05-21 2017-05-21 Aaron GRIMM [facility] [id number] [place] 15:30:00 15:30:00 t; Edward KRUSE i, M.D. ans NORMAN, M.D. 2017-03-05 2017-03-05 Aaron GRIMM [facility] [id number] [place] 16:00:00 16:00:00 t; Edward KRUSE i, M.D. ans NORMAN, M.D. 2017-01-01 2017-01-01 Aaron [facility] UTP [id number] [place] 16:00:00 16:00:00 t; Edward KRUSE i, M.D. ans NORMAN, M.D. 2016-11-03 2016-11-03 Aaron [facility] UTP [id number] UT 14:30:00 14:30:00 t; Edward KRUSE i, M.D. ans NORMAN, M.D. 2016-08-21 2016-08-21 aAron [facility] UTP [id number] UT 16:00:00 16:00:00 t; Edward KRUSE i, M.D. ans NORMAN, M.D. Results Test Description Test Time Test Comments Results Result Comments Source MD COVID-19 (REENA-CoV-2) PCR Asymptomatic 2021-12-15 11:16:43 Test Item Value Reference Range Interpretation Comme nts COVID19 SARS Indication (test Pre-Out of OR Procedure code = 32124) COVID19 SARS Result (test code Not Detected Not Detected = 22468-8) COVID19 SARS Interpretation SARS-CoV-2 NOT Detected. Reference (test code = 99488) Range: Not Detected Methodology: The Zam[employer] RealTime SARS-CoV-2 assay is a qualitative real-time reverse lead customer service representative polymerase chain reaction (bobbin winder tender-PCR) test to detect RNA from SARS-CoV-2 in nasal, nasopharyngeal and oropharyngeal swabs from patients with signs and symptoms of infection who are suspected of COVID-19 by their health care provider. The Zamor[employer] RealTime SARS-CoV-2 performed on the [employer] System is a dual target assay with [...] CLIA-certified, high-complexity Molecular Diagnostics Laboratory (MDL) at [facility] under the Food and Drug Administration (FDA) s Emergency Use Authorization. Factsheet for patients: https://www.Scoopinionnd[employer].org/AbbottFactS heetPatientsFactsheet for healthcare providers: https://www.Scoopinionnderson.org/AbbottFactS heetHCP Test performed by:[facility] Molecular Diagnostic [address] [place] [address] [facility] COVID-19 (REENA-CoV-2) PCR [id number] 11:16:43 Test Item Value Reference Interpretation Comments Range COVID19 SARS Pre-Out of OR Procedure Indication (test code = 21303) COVID19 SARS Result Not Detected Not Detected (test code = 14271-0) COVID19 SARS SARS-CoV-2 NOT Detected. Interpretation (test Reference Range: Not code = 29399) Detected Methodology: The Zam[employer] RealTime SARS-CoV-2 assay is a qualitative real-time reverse lead customer service representative polymerase chain reaction (bobbin winder tender-PCR) test to detect RNA from SARS-CoV-2 in nasal, nasopharyngeal and oropharyngeal swabs from patients with signs and symptoms of infection who are suspected of COVID-19 by their health care provider. The Zamorano RealTime SARS-CoV-2 performed on the [employer] System is a dual target assay with [...] CLIA-certified, high-complexity Molecular Diagnostics Laboratory (MDL) at [facility] under the Food and Drug Administration (FDA) s Emergency Use Authorization. Factsheet for patients: https://www.mdanderson.org/ AbbottFactSheetPatientsFact sheet for healthcare providers: https://www.[facility].org/ AbbottFactSheetHCP Test performed by:[facility] Molecular Diagnostic [address] [place] [address] [facility] HospitalMamm[facility] Digital Diagnostic Mmzduzixi7270-05-82 20:21:30 Test Item Value Reference Range Interpretation Comments Radiology Study observation (narrative) (test code = 09570-6) IMP (test code = IMP) 1: Calcifications [...] Evaluation Lab Interpretation Abnormal (test code = 80905-3) [facility] w/Gram Stain 2021-08-23 22:54:42 Test Item Value Reference Range Interpretation Comments Final Report (test Few Actinobaculum A code = 8488) schaalii...Normal site kiara present. Normal kiara consists ofCoryneform Bacteria likeStaphylococcus coagulase negative like andStaphylococcus coagulase negative of a second type. like Path Review (test The results have been A code = 8492) reviewed and electronically signed by Pathologist:Dorothy Bowden MD, PhD #[id number] Gram Stain Report Moderate WBC's seenMany A (test code = 36392-5) Gram Positive CocciMany Gram Variable Sher Lab Interpretation Abnormal (test code = 72737-5) [facility] w/Gram Stain 2021-08-23 22:54:42 Test Item Value Reference Range Interpretation Comments Final Report (test Few Actinobaculum A code = 8488) schaalii...Normal site kiara present. Normal kiara consists ofCoryneform Bacteria likeStaphylococcus coagulase negative like andStaphylococcus coagulase negative of a second type. like Path Review (test The results have been A code = 8492) reviewed and electronically signed by Pathologist:Dorothy Bowden MD, PhD #[id number] Gram Stain Report Moderate WBC's seenMany A (test code = 63089-7) Gram Positive CocciMany Gram Variable Sher Lab Interpretation Abnormal (test code = 61412-1) [facility] with Microscopic 2021-08-21 03:45:57 Test Item Value [...] implementation of new instrumentation in the Main [place], allowing greater sensitivity of measurement. Urinalysis results reported by the [facility] using existing instrumentation, as well as Urinalysis testing performed manually or by backup methodology at the [facility] will remain relatively unchanged. New reporting parameters and units will now be reported for all [facility]. Lab Interpretation Abnormal (test code = 74008-8) [facility]opic 2021-08-21 03:45:57 Test Item Value [...] the implementation of new instrumentation in the [facility], allowing greater sensitivity of measurement. Urinalysis results reported by the [facility] using existing instrumentation, as well as Urinalysis testing performed manually or by backup methodology at the [facility] will remain relatively unchanged. New reporting parameters and units will now be reported for all [facility]. Lab Interpretation Abnormal (test code = 89473-7) [facility] Hospital[facility]inal[facility] w/Microscopic if Vckjuhlio9921-49-93 03:44:13 Test Item Value Reference Range Interpretation [...] NEG Lab Interpretation (test code = Abnormal 47395-6) [facility] w/Microscopic if Ydiryfohq4779-27-90 03:44:13 Test Item Value Reference Range Interpretation [...] NEG Lab Interpretation (test code = Abnormal 56483-5) [facility] HospitalCOVID-[facility] (SARS-CoV-2)Isqsokvywdpy-QH3427-93-23 02:13:33 Test Item Value Reference Range Interpretation Comments COVID19 Not Detected Not Detected (SARS-CoV-2) (test code = 43657-4) COVID19 SARS Inpatient Indication (test Admission code = 33140) Covid 19 Comment See Note The quin S ARS-CoV-2 (test code = [place] [address]) use on the mray s Brit System is a marcelo l-time [...] sheet for patie nts provided by the aviation consultant ([employer]) can be rev iewed at: https://www.fda .gov/m edia/055450/keith nload. A fact sheet fo r Health Care pro viders is provided by the aviation consultant ([employer] and can be reviewed at: https://www.fda .gov/m edia/914100/keith nload Results must be interpreted wit hin [...] is assay has been authorized by t [facility] for use only un sylvia Emergency Use Authorization ( EUA) in laboratories that have been CLIA-certified to perform moderate-comple xity and high-comple xity tests. The Microbiology Laboratory at [facility], CLIA Accreditation #[id number] and CAP Accreditation #[id number], verif ied the performance characteristics of this assay. Int ernal controls are us ed to monitor all sta ges of the test proces s. [facility] HospitalCOVID-19 (SARS-CoV-2)Gaoqapinjmpj-FF1671-59-23 02:13:33 Test Item Value Reference Range Interpretation Comments COVID19 Not Detected Not Detected (SARS-CoV-2) (test code = 35599-2) COVID19 SARS Inpatient Indication (test Admission code = 08049) Covid 19 Comment See Note The quin S ARS-CoV-2 (test code = [place] [address]) use on the mary s Brit System [...] sheet for patie nts provided by the aviation consultant ([employer]) can be rev iewed at: https://www.fda .gov/m edia/810462/keith nload. A fact sheet fo Health Care pro viders is provided by the aviation consultant (Eri [employer]hater[employer]) and can be reviewed at: https://www.fda .gov/ edia/424517/keith nload Results must be interpreted wit hin [...] Th is assay has been authorized by blair carmona [facility] for use only un sylvia Emergency Use Authorization ( EUA) in laboratories that have been CLIA-certified to perform moderate-comple xity and high-comple xity tests. The Microbiology Laboratory at [facility], CLIA Accreditation #[id number] and CAP Accreditation #[id number], verif ied the performance characteristics of this assay. Int ernal controls are ed to monitor all sta ges of the test proces s. [facility] HospitalFractionated Qdkirfuaw3158-67-59 01:25:43 Test Item Value Reference Range Interpretation [...] above 28 g/L. [Automated message] The system [employer] h generated this result transmitted ref erence range: [...] par ameters are outside rep ortable range [facility] HospitalFractionated Bryrlbytg0406-52-69 01:25:43 Test Item Value Reference Range Interpretation [...] above 28 g/L. [Automated message] The system [employer] generated this result transmitted ref erence range: [...] par ameters are outside rep ortable range [facility] HospitalPhosphorus [id number] 01:25:41 Test Item Value Reference Range Interpretation Comments Phosphorus (test code = 6817) 3.4 mg/dL 2.5-4.5 [facility] HospitalPhosphorus [id number] 01:25:41 Test Item Value Reference Range Interpretation Comments Phosphorus (test code = 6817) 3.4 mg/dL 2.5-4.5 [facility] HospitalLDH2022-01-23 01:25:40 Test Item Value Reference Range Interpretation Comments LDH (test code = 6111) 355 U/L 135-214 H Speci men is hemolyzed. Resu lts may be falsely elevated. Repea t test if needed.Resul ts greater than 16 51 U/L may not be reli able due to matrix e ffect with extended dilution as it exceeds the aviation consultant s recommended l imit. Caution should be exercised when interpreting glasgow ch values and done in conjunction wit h clinical contex t. Lab Interpretation (test Abnormal code = 27757-7) [facility]LDH2022-01-23 01:25:40 Test Item Value Reference Range Interpretation Comments LDH (test code = 6111) 355 U/L 135-214 H Speci men is hemolyzed. Resu lts may be falsely elevated. Repea t test if needed.Resul ts greater than 16 51 U/L may not be reli able due to matrix e ffect with extended dilution as it exceeds the aviation consultant s recommended l imit. Caution should be exercised when interpreting glasgow ch values and done in conjunction wit h clinical contex t. Lab Interpretation (test Abnormal code = 31138-5) [facility] HospitalCalcium [id number] 01:25:38 Test Item Value Reference Range Interpretation Comments Calcium Lvl (test code = 5258) 8.9 mg/dL 8.4-10.2 [facility] HospitalCalcium Uqrbg4324-74-26 01:25:38 Test Item Value Reference Range Interpretation Comments Calcium Lvl (test code = 5258) 8.9 mg/dL 8.4-10.2 [facility] HospitalGlomerular Filtration Rate 2021-08-21 01:25:37 Test Item Value [...] interpret th is result as normal/abnormal . [facility] Fil[facility] Rate 2021-08-21 01:25:37 Test Item Value [...] decreased GFR 1 5-295 Kidney failure <15 [A utomated message] The sy stem which generated this [...] 60-893a Mildly to moder ately decreased GFR 45-593b Moderately to s everely decreased GFR 3 0-444 Severely decreased GFR 1 5-295 Kidney failure <15 [Au tomated message] The sy stem which generated this result transmitted ref erence range: >=60 mL/min/1.7 3 sq. m. The reference range was not used to interpret th is result as normal/abnormal . [facility] HospitalAlbumin [id number] 01:25:36 Test Item Value Reference Range Interpretation Comments Albumin Lvl (test code 4.0 See_Comment [Aut omated message] The = 2351) system which ge nerated this result tra nsmitted reference range : 3.5 - 5.2 gm/dL. The refe rence range was not used to interpret this result as normal/abnormal . [facility] HospitalAlbumin [id number] 01:25:36 Test Item Value Reference Range Interpretation Comments Albumin Lvl (test code 4.0 See_Comment [Aut omated message] The = 4763) system which ge nerated this result tra nsmitted reference range : 3.5 - 5.2 gm/dL. The refe rence range was not used to interpret this result as normal/abnormal . [facility] HospitalTotal [id number] 01:25:35 Test Item Value Reference Range Interpretation Comments Total Protein (test code = 7649) 7.4 g/dL 6.4-8.3 [facility] HospitalTotal [id number] 01:25:35 Test Item Value Reference Range Interpretation Comments Total Protein (test code = 7649) 7.4 g/dL 6.4-8.3 [facility] HospitalAspartate Aminotransferase 2021-08-21 01:25:34 Test Item Value Reference Range Interpretation Comments AST (test code = 27 U/L See_Comment Specimen is hemolyzed. 4731) Results may be falsely elevated. Repea t test if needed. [Automa alexys message] The system [employer] generated this result tra nsmitted reference range : <=32. The reference range was not used to interpr et this result as sara l/abnormal. [facility] HospitalAspartate Aminotransferase 2021-08-21 01:25:34 Test Item Value Reference Range Interpretation Comments AST (test code = 27 U/L See_Comment Specimen is hemolyzed. 4731) Results may be falsely elevated. Repea t test if needed. [Automa alexys message] The system [employer] generated this result tra nsmitted reference range : <=32. The reference range was not used to interpr et this result as sara l/abnormal. [facility] HospitalMagnesium [id number] 01:25:33 Test Item Value Reference Range Interpretation Comments Magnesium (test code = 6359) 1.7 mg/dL 1.6-2.6 [facility] HospitalMagnesium [id number] 01:25:33 Test Item Value Reference Range Interpretation Comments Magnesium (test code = 6359) 1.7 mg/dL 1.6-2.6 [facility] HospitalElectrolyte [id number] 01:25:32 Test Item Value Reference Range Interpretation Comments Sodium Lvl (test code = 128 See_Comment L [Au tomated message] 2455) The system [employer] generated this result transmitted ref erence range: [...] = 91 See_Comment L [Auto mated message] 0829) The system [employer] generated this result transmitted ref erence range: 98 - 107 mEq/L. The refe rence range was not u sed to interpret this result as normal/abnor mal. CO2 (test code = 5227) 19 See_Comment L [Aut omated message] The system [employer] generated this result transmitted ref erence range: 22 - 29 mEq/L. The reference r victorino was not used to interpret this result as normal/abnor mal. Anion Gap (test code = 18 See_Comment H [Aut omated message] 9882) The system [employer] generated this result transmitted ref erence range: 4 - 14 m Eq/L. The reference r victorino was not used to interpret this result as normal/abnor mal. Lab Interpretation (test Abnormal code = 78921-1) [facility]sonElectrolyte [id number] 01:25:32 Test Item Value Reference Range Interpretation Comments Sodium Lvl (test code = 128 See_Comment L [Au tomated message] 6579) The system [employer] generated this result transmitted ref erence range: [...] = 91 See_Comment L [Auto mated message] 0992) The system [employer] generated this result transmitted ref erence range: 98 - 107 mEq/L. The refe rence range was not u sed to interpret this result as normal/abnor mal. CO2 (test code = 5227) 19 See_Comment L [Aut omated message] The system [employer] generated this result transmitted ref erence range: 22 - 29 mEq/L. The reference r victorino was not used to interpret this result as normal/abnor mal. Anion Gap (test code = 18 See_Comment H [Aut omated message] 6391) The system [employer] generated this result transmitted ref erence range: 4 - 14 m Eq/L. The reference r victorino was not used to interpret this result as normal/abnor mal. Lab Interpretation (test Abnormal code = 69820-8) [facility] HospitalAlkaline [id number] 01:25:31 Test Item Value Reference Range Interpretation Comments Alk Phos (test code = 4768) 91 U/L 35-104 [facility] HospitalAlkaline [id number] 01:25:31 Test Item Value Reference Range Interpretation Comments Alk Phos (test code = 4768) 91 U/L 35-104 [facility] HospitalGlucose [id number] 01:25:30 Test Item Value Reference Range Interpretation Comments Glucose Level (test 96 mg/dL 70-99 Effectiv e 02/23/16, the code = 5699) glucose referen ce intervals have been updated based o n [employer] yaima delines (Standards of M edical Care in Diabete s 2016. Diabetes Care 2 016; 39: S13-S22).Fastin g blood glucose:Normal: 70-99 mg/dLImpaired f asting glucose (increa sed risk for diabetes or pre-diabetes): 100-125 mg/dLDiabetes m ellitus: >/=126 mg/dL Ra ndom blood glucose:N ormal: 70-199 mg/dLNot e: Random glucose >100 mg /dL is associated with increased risk for diabetes [facility] HospitalGlucose [id number] 01:25:30 Test Item Value Reference Range Interpretation Comments Glucose Level (test 96 mg/dL 70-99 Effectiv e 02/23/16, the code = 5699) glucose referen ce intervals have been updated based o n [employer] yaima delines (Standards of M edical Care in Diabete s 2016. Diabetes Care 2 016; 39: S13-S22).Fastin g blood glucose:Normal: 70-99 mg/dLImpaired f asting glucose (increa sed risk for diabetes or pre-diabetes): 100-125 mg/dLDiabetes m ellitus: >/=126 mg/dL Ra ndom blood glucose:N ormal: 70-199 mg/dLNot e: Random glucose >100 mg /dL is associated with increased risk for diabetes [facility] HospitalALT2022-01-23 01:25:29 Test Item Value Reference Range Interpretation Comments ALT (test code = 22 U/L See_Comment [Automated message] The [employer]) system which ge nerated this result transmit alexys reference range : <=33. The reference range was not used to interpr et this result as sara l/abnormal. [facility] HospitalALT2022-01-23 01:25:29 Test Item Value Reference Range Interpretation Comments ALT (test code = 22 U/L See_Comment [Automated message] The [employer]) system which ge nerated this result transmit alexys reference range : <=33. The reference range was not used to interpr et this result as sara l/abnormal. [facility].Serum [id number] 01:25:28 Test Item Value Reference Range Interpretation Comments Creatinine (test code = 5399) 0.39 mg/dL 0.51-0.95 L Lab Interpretation (test code = Abnormal 97268-3) [facility].Serum [id number] 01:25:28 Test Item Value Reference Range Interpretation Comments Creatinine (test code = 5399) 0.39 mg/dL 0.51-0.95 L Lab Interpretation (test code = Abnormal 61565-6) [facility] HospitalBUN2022-01-23 01:25:27 Test Item Value Reference Range Interpretation Comments BUN (test code = 5055) 6-23 L Lab Interpretation (test code = Abnormal 79695-8) [facility] HospitalBUN2022-01-23 01:25:27 Test Item Value Reference Range Interpretation Comments BUN (test code = 5055) 6-23 L Lab Interpretation (test code = Abnormal 49761-7) [facility] HospitalLipase2022-01-23 01:23:09 Test Item Value Reference Range Interpretation Comments Lipase Lvl (test code = 6165) 24 U/L 13-60 [facility] HospitalLipase2022-01-23 01:23:09 Test Item Value Reference Range Interpretation Comments Lipase Lvl (test code = 6165) 24 U/L 13-60 [facility] HospitalAmylase2022-01-23 01:23:08 Test Item Value Reference Range Interpretation Comments Amylase Lvl (test code = 4806) 19 U/L 28-100 L Lab Interpretation (test code = Abnormal 06688-0) [facility] HospitalAmylase2022-01-23 01:23:08 Test Item Value Reference Range Interpretation Comments Amylase Lvl (test code = 4806) 19 U/L 28-100 L Lab Interpretation (test code = Abnormal 04793-3) [facility] HospitalDifferential2022-01-23 01:04:58 Test Item Value Reference Range Interpretation [...] H Lab Interpretation (test Abnormal code = 54454-0) [facility] HospitalDifferential2022-01-23 01:04:58 Test Item Value Reference Range Interpretation [...] H Lab Interpretation (test Abnormal code = 03769-4) [facility].[id number] 01:04:56 Test Item Value Reference Range Interpretation Comments WBC (test code = 8034) 12.6 K/uL 4.0-11.0 H RBC (test code = 6932) 4.48 See_Comment [Aut omated message] The system [employer] generated this result transmitted ref erence range: 4.00 - 5 .50 M/uL. The refer ence range was not u sed to interpret this result as normal/abnor mal. Hgb (test code = 5898) 13.1 See_Comment [Aut omated message] The system [employer] generated this result transmitted ref erence range: 12.0 - 1 6.0 gm/dL. The refe rence range was not u sed to interpret this result as normal/abnor mal. Hct (test code = 5860) 40.6 % 37.0-47.0 MCV (test code = 6222) 91 fL 82-98 MCH (test code = 6220) 29.2 pg 27.0-31.0 MCHC (test code = 6221) 32.3 See_Comment [Au tomated message] The system [employer] generated this result transmitted ref erence range: [...] cell differential. [Automated mess age] The system [employer] generated this result transmitted ref erence range: <=0.0. T he reference range was not used to int erpret this result as normal/abnormal . Lab Interpretation Abnormal (test code = 04837-1) [facility].[id number] 01:04:56 Test Item Value Reference Range Interpretation Comments WBC (test code = 8034) 12.6 K/uL 4.0-11.0 H RBC (test code = 6932) 4.48 See_Comment [Aut omated message] The system [employer] generated this result transmitted ref erence range: 4.00 - 5 .50 M/uL. The refer ence range was not u sed to interpret this result as normal/abnor mal. Hgb (test code = 5898) 13.1 See_Comment [Aut omated message] The system [employer] generated this result transmitted ref erence range: 12.0 - 1 6.0 gm/dL. The refe rence range was not u sed to interpret this result as normal/abnor mal. Hct (test code = 5860) 40.6 % 37.0-47.0 MCV (test code = 6222) 91 fL 82-98 MCH (test code = 6220) 29.2 pg 27.0-31.0 MCHC (test code = 6221) 32.3 See_Comment [Au tomated message] The system [employer] generated this result transmitted ref erence range: [...] cell differential. [Automated mess age] The system [employer] generated this result transmitted ref erence range: <=0.0. T he reference range was not used to int erpret this result as normal/abnormal . Lab Interpretation Abnormal (test code = 61074-5) [facility] HospitalUrine Drug Screen STAT, Qualitative, Without [id number] 20:20:27 Test Item Value Reference Range Interpretation [...] alco hol 20 ng/mL Performin g Site: [facility], [facility], [address] [place] [address], [address]. Lab Interpretation (test Abnormal code = 35426-0) [facility] STAT, Qualitative, Without [id number] 20:20:27 Test Item Value Reference Range Interpretation [...] alco hol 20 ng/mL Performin g Site: [facility], [facility], [address] [place] [address], [place], [address]. Lab Interpretation (test Abnormal code = 52798-6) [facility] Antibody Screen [id number] 15:00:42 Test Item Value Reference Range Interpretation Comments TMP Auto Neg At the present ABSC Interp time, patient (test code = plasma shows no ____ANGELA LANDRY MD 2354) evidence of RBC - 57130Mjmuw alexys by: alloantibodies. MD Evan RAINEY [id number] D ate/Time: 08.14.2021 9:00 AM [facility]ATIONS [facility] Transcribed Orger e/Time: 08.14.2021 9:00 AM CSTElectronical ly Signed [place]: [place] [id number] on 07.30 9:00 AM C [facility] HospitalTMP Interpretation Antibody Screen [id number] 15:00:42 Test Item Value Reference Range Interpretation Comments TMP Auto Neg At the present ABSC Interp time, patient (test code = plasma shows no ____ANGELA LANDRY MD 7035) evidence of RBC - 58894Akheh alexys by: alloantibodies. ANGELA JOSEPH MD - [id number] D ate/Time: 08.14.2021 9:00 AM DIRECT[facility]PERATIONS [facility] Transcribed Roger e/Time: 08.14.2021 9:00 AM CSTElectronical ly Signed By: ANGELA DELONG MD - [id number] on 07.30 9:00 AM C [facility] HospitalConfirm [id number] 05:56:03 Test Item Value Reference Range Interpretation Comments ABORh Confirm. (test code = 882-1) A POS [facility] HospitalConfirm [id number] 05:56:03 Test Item Value Reference Range Interpretation Comments ABORh Confirm. (test code = 882-1) A POS [facility] HospitalAntibody [id number] 04:48:36 Test Item Value Reference Range Interpretation Comments ABSC. (test code = 890-4) Negative ABSC [facility] HospitalAntibody [id number] 04:48:36 Test Item Value Reference Range Interpretation Comments ABSC. (test code = 890-4) Negative ABSC [facility] HospitalABORh2022-01-16 04:48:35 Test Item Value Reference Range Interpretation Comments ABORh. (test code = 882-1) A POS [facility] HospitalABORh2022-01-16 04:48:35 Test Item Value Reference Range Interpretation Comments ABORh. (test code = 882-1) A POS [facility] HospitalClot Expiration [id number] 04:48:34 Test Item Value Reference Range Interpretation Comments T & S Expiration (test code = 08/16/2021 5318) [facility] HospitalClot Expiration [id number] 04:48:34 Test Item Value Reference Range Interpretation Comments T & S Expiration (test code = 08/16/2021 5318) [facility] HospitalaPTT2022-01-16 03:40:30 Test Item Value Reference Range Interpretation Comments aPTT (test code = 32.8 See_Comment [Automate d message] The 6773) system which ge nerated this result transmit alexys reference range : 24.7 - 36.8 second(s). The reference range was not used to interpr et this result as sara l/abnormal. [facility] HospitalaPTT2022-01-16 03:40:30 Test Item Value Reference Range Interpretation Comments aPTT (test code = 32.8 See_Comment [Automate d message] The 6773) system which ge nerated this result transmit alexys reference range : 24.7 - 36.8 second(s). The reference range was not used to interpr et this result as sara l/abnormal. [facility] HospitalProthrombin Time with [id number] 03:40:29 Test Item Value Reference Range Interpretation Comments PT (test code = 6746) 13.1 See_Comment [Auto mated message] The system which ge nerated this result transmit alexys reference range : 11.5 - 13.9 second(s). The reference range was not used to interpr et this result as sara l/abnormal. INR (test code = 1.08 0.90-1.10 5973) [facility] HospitalProthrombin Time with [id number] 03:40:29 Test Item Value Reference Range Interpretation Comments PT (test code = 6746) 13.1 See_Comment [Auto mated message] The system which ge nerated this result transmit alexys reference range : 11.5 - 13.9 second(s). The reference range was not used to interpr et this result as sara l/abnormal. INR (test code = 1.08 0.90-1.10 5973) [facility] HospitalTSH2022-01-16 03:39:35 Test Item Value Reference Range Interpretation Comments TSH (test code = 0.62 See_Comment [Automated message] The 7578) system which ge nerated this result transmit alexys reference range : 0.27 - 4.20 mcunit/mL. The reference range was not used to interpr et this result as sara l/abnormal. [facility] HospitalTSH2022-01-16 03:39:35 Test Item Value Reference Range Interpretation Comments TSH (test code = 0.62 See_Comment [Automated message] The 7578) system which ge nerated this result transmit alexys reference range : 0.27 - 4.20 mcunit/mL. The reference range was not used to interpr et this result as sara l/abnormal. [facility] HospitalUric Tutk2824-02-24 03:39:32 Test Item Value Reference Range Interpretation Comments Uric Acid (test code = 7955) 4.9 mg/dL 2.4-5.7 [facility] HospitalUric [id number] 03:39:32 Test Item Value Reference Range Interpretation Comments Uric Acid (test code = 7955) 4.9 mg/dL 2.4-5.7 [facility] HospitalAmmonia [id number] 03:39:03 Test Item Value Reference Range Interpretation Comments Ammonia (test code = 29 See_Comment [Autom ated message] The 6236) system which ge nerated this result tra nsmitted reference range : 11 - 51 mcmol/L. The re ference range was not u sed to interpret this result as normal/abnormal . [facility] HospitalAmmonia [id number] 03:39:03 Test Item Value Reference Range Interpretation Comments Ammonia (test code = 29 See_Comment [Autom ated message] The 2756) system which ge nerated this result tra nsmitted reference range : 11 - 51 mcmol/L. The re ference range was not u sed to interpret this result as normal/abnormal . [facility] HospitalHemoglobin [id number] 03:14:58 A1C<4.34.3 - 5.6 %[facility]UnDo[facility] RenaissanceHemoglobin [id number] 03:14:58A1C<4.34.3 - 5.6 %[facility]ENTERUn[facility][U] XRAY CHEST- AP AND LAT. AND APICAL LORDOTIC VWS [id number] 14:47:00 Test Item Value Reference Range Interpretation [...] neck. 12/02/2018 3:52 PM CDT Natan Ritter [facility] BASIC METABOLIC PANEL [id number] 17:15:01 Test Item Value Reference Range Interpretation Comments Glucose Lvl (test 102 mg/dl 70-99 Adult refe rence range code = Glucose values reflec t the Lvl) clinical guidel inesof the [place] [employer]. Blood Urea 11 mg/dl [...] be multiplied by t he estimated BMI. [facility][QL] [id number] 17:15:01 Test Item Value Reference Range Interpretation Comments Ferritin Lvl (test code = Ferritin 40 ng/ml 5-204 Lvl) [facility]] HEPATIC FUNCTION [id number] 17:15:01 Test Item Value Reference Range Interpretation Comments Total Protein (test code = 38253-5) 8.1 g/dl 6.4-8.4 Albumin Lvl (test code = 1751-7) 4.1 g/dl 3.5-5.0 Bili Total (test code = 40628-1) 0.3 mg/dl 0.2-1.3 Bilirubin Indirect (test code = 0.2 mg/dl 0.0-1.0 23085-8) Alk Phos (test code = 1783-0) 104 u/l 39-136 AST (test code = 1916-6) 31 u/l 0-37 ALT (test code = 1742-6) 46 u/l 0-65 Globulin (test code = Globulin) 4.0 g/dl 2.7-4.2 A/G Ratio (test code = A/G Ratio) 1.0 0.7-1.6 [facility][QL] LIPID [id number] 17:15:01 Test Item Value Reference Range Interpretation Comments Chol (test code = Chol) 214 mg/dl <=199 Trig; Above High Threshold (test 374 mg/dl <=149 code = 2571-8) HDL Cholesterol (test code = HDL 70 mg/dl >=61 Cholesterol) CHD Risk (test code = CHD Risk) 3.06 3.90-5.80 LDL (test code = LDL) 69 mg/dl <=99 VLDL (test code = VLDL) 75 [facility][QL] THYROID [id number] 17:15:01 Test Item Value Reference Range Interpretation Comments TSH (test code = 34427-0) 1.920 {uIU/ml} 0.360-3.740 T3 Uptake (test code = T3 29 % 31-39 Uptake) Thyroxine (test code = 8.6 ug/dL 4.7-13.3 Thyroxine) [facility][H] Free Thyroxine [id number] 17:15:01 Test Item Value Reference Range Interpretation Comments Free Thyroxine Index (test code = Free 2.5 Thyroxine Index) [facility][QL] URINALYSIS, [id number] 17:15:01 Test Item Value Reference Range Interpretation Comments UA Turbidity (test code = 78559-9) Clear Clear UA Spec Grav (test code = 2965-2) 1.016 <=1.030 UA pH (test code = 2756-5) 7.0 5.0-8.0 UA Protein (test code = 38615-5) Negative Negative UA Glucose (test code = 2349-9) Negative Negative UA Ketones (test code = 01853-1) Negative Negative UA Bili (test code = 92605-9) Negative Negative UA Blood (test code = 798-9) Negative Negative UROBILINOGEN; Above High Threshold 4.0 mg/dl 0.1-1.0 (test code = 34659-9) UA Nitrite; Abnormal (test code = Positive Negative A 54320-9) UA Leuk Est (test code = 74448-4) Negative Negative UA RBC (test code = 21946-5) 1 {/HPF} 0-2 UA WBC (test code = 03792-8) 2 {/HPF} 0-5 UA Bacteria (test code = 630-4) Occasional None Seen UA Sq Epi (test code = 10171-5) Occasional Few UA Color (test code = 96321-4) [facility][QL] CBC (INCLUDES DIFF/PLT)2017-08-03 17:15:01 Test Item Value Reference Range Interpretation Comments WBC (test code = WBC) 14.1 {K/CMM} 3.7-10.4 RBC (test code = RBC) 3.98 {M/CMM} 4.20-5.40 Hgb (test code = 97366-9) 12.2 g/dl 12.0-16.0 Hct (test code = 4544-3) 37.4 % 36.0-48.0 MCV (test code = MCV) 94.0 fL 80.0-98.0 MCH (test code = MCH) 30.8 pg 27.0-31.0 MCHC (test code = MCHC) 32.8 g/dl 32.0-36.0 RDW (test code = RDW) 17.2 % 11.5-14.5 Platelet (test code = 777-3) 282 {K/CMM} 133-450 Mean Platelet Volume (test code 7.6 fL 7.4-10.4 = Mean Platelet Volume) [facility]] [id number] 17:15:01 Test Item Value Reference Range Interpretation Comments Segmented Neutrophils (test code 63.0 % 45.0-75.0 = 36946-6) Monocytes #; Above High Threshold 1.3 {K/CMM} 0.0-0.8 (test code = 39633-2) Lymphocytes (test code = 26.2 % 20.0-40.0 Lymphocytes) Eosinophils # (test code = 0.2 {K/CMM} 0.0-0.5 05134-3) Basophils # (test code = 26645-6) 0.1 {K/CMM} 0.0-0.2 Segs-Bands #; Above High 8.9 {K/CMM} 1.5-8.1 Threshold (test code = 59508-3) Lymphocytes # (test code = 3.7 {K/CMM} 1.0-5.5 71294-1) RBC Morphology (test code = RBC Normal Morphology) Plt Morphology (test code = Plt Normal Morphology) [facility][QL] HEMOGLOBIN [id number] 17:15:01 Test Item Value Reference Range Interpretation Comments Hemoglobin A1c (test code = 4548-4) 4.1 % <=5.6 [facility]] VITAMIN D, 25-HYDROXY, LC/MS/[id number] 17:15:01 Test Item Value Reference Range Interpretation Comments Vitamin D, 25-OH, 33.4 ng/ml 30.0-100.0 Reference range is based Total (test code on recommen dations in the = Vitamin D, EndocrineSociet y Clinical 25-OH, Total) Practice Guide line (J Clin Endocrinol Ddlpa2695;96:19 11-1930) [facility][H] Protein [id number] 17:15:01 Test Item Value Reference Interpretation Comments [...] Globulin 0.79 g/dl 0.45-1.00 (test code = 60126-9) Beta Globulin (test 1.05 g/dl 0.50-1.15 code [...] d concur with joseph pinto's interpretation. CPT 37655-IYTsssjre anita Signature José Miguel Maharaj MD 08/07 3:33 PM [facility]
[2023-01-19] MEDS ORDERED: ACETAMINOPHEN 500 MG TAB ONE (16:16)
--- NOTE | 2023-01-19 16:42 | RAD REPORT ---
EXAM DESCRIPTION: RAD - Lumbar Spine 3 Views - 01/19/2023 4:33 pm CLINICAL HISTORY: PAIN Radiculopathy COMPARISON: No comparisons FINDINGS: Vertebral body heights appear maintained. No compression fracture noted. Mild disc thinnin g is seen lower lumbar levels. No spondylolysis or spondylolisthesis. Mild to moderate lower lumbar f acet arthrosis. IMPRESSION: Mild lower lumbar degenerative spondylosis.
--- NOTE | 2023-01-19 16:43 | RAD REPORT ---
EXAM DESCRIPTION: RAD - Pelvis - 01/19/2023 4:33 pm CLINICAL HISTORY: PAIN COMPARISON: No comparisons FINDINGS: No fracture, dislocation or radiographic evidence of AVN. IMPRESSION: Negative study.
--- NOTE | 2023-01-19 16:43 | RAD REPORT ---
EXAM DESCRIPTION: RAD - Femur Left - 01/19/2023 4:33 pm CLINICAL HISTORY: PAIN COMPARISON: No comparisons FINDINGS: No bone or joint abnormality is detected.
--- NOTE | 2023-01-19 16:44 | RAD REPORT ---
EXAM DESCRIPTION: RAD - Tib Fib Left - 01/19/2023 4:33 pm CLINICAL HISTORY: PAIN COMPARISON: No comparisons FINDINGS: No bone or joint abnormality detected.
--- NOTE | 2023-01-19 16:46 | RAD REPORT ---
EXAM DESCRIPTION: CT - Head Brain Wo Cont - 01/19/2023 4:37 pm CLINICAL HISTORY: TRAUMA Trauma, head injury COMPARISON: Head Brain Wo Cont dated 04/13/2016; HEAD BRAIN W O CONTRAST dated 06/11/2013 TECHNIQUE: All CT scans are performed using dose optimization technique as appropriate and may inclu de automated exposure control or mA/KV adjustment according to patient size. FINDINGS: No intracranial hemorrhage, hydrocephalus or extra-axial fluid collection.No areas of brai n edema or evidence of midline shift. The paranasal sinuses and mastoids are clear. The calvarium is intact. IMPRESSION: No acute intracranial abnormality.
[2023-01-19] MEDS ORDERED: HYDROCODONE/APAP 10/325 TAB ONE (17:31)
--- NOTE | 2023-01-19 17:59 | RAD REPORT ---
EXAM DESCRIPTION: CT - Pelvis Wo Cont - 01/19/2023 5:48 pm CLINICAL HISTORY: TRAUMA Pain and swelling. COMPARISON: No comparisons TECHNIQUE: All CT scans are performed using dose optimization technique as appropriate and may inclu de automated exposure control or mA/KV adjustment according to patient size. FINDINGS: Moderate lower lumbar degenerative changes are present. Symmetric bilateral sacroiliac joints. Both hips appear intact. No acute fracture or subluxation seen . Small amount of air seen in the urinary bladder. IMPRESSION: No acute traumatic finding is evident. Small amount of air in the urinary bladder, could indicate recent instrumentation or infection.
--- NOTE | 2023-01-19 18:18 | EDPHYS ---
Physician Documentation [facility] Name: Lianne Medina Age: 52 yrs Sex: Female : 1970 Arrival Date: 01/19/2023 Time: 15:12 Bed DX4 Private MD: ED Physician Barney Ventura HPI: 01/19 18:33 This 52 yrs old Female presents to ER via Wheelchair with complaints of Fall Injury, kb Leg Pain. 18:33 Details of fall: The patient fell from an upright position, while walking. Onset: The kb symptoms/episode began/occurred this morning, at 01:00. Associated injuries: The patient sustained injury to the head, pain, injury to the low back, pain, pain with movement, left hip, painful injury, left leg, decreased range of motion, painful injury. Severity of symptoms: At their worst the symptoms were moderate, in the emergency department the symptoms are unchanged. The patient has not experienced similar symptoms in the past. The patient has not recently seen a physician. Pt reports she was walking to the restroom at 0100 and her legs gave out causing her to call onto left side. Reports she hit her head pretty hard and has pain and decreased ROM to left leg. States her legs have given out on her multiple times in the past. Denies loc. States she told her daughter about the fall and her daughter called EMS. . Historical: - Allergies: 15:52 Celecoxib; cm10 15:52 cyclobenzaprine HCl; cm10 15:52 CYCLOSPORINE; cm10 15:52 divalproex; cm10 15:52 Fentanyl; cm10 15:52 levetiracetam; cm10 15:52 Lorazepam; cm10 15:52 Metoclopramide; cm10 15:52 PENICILLINS; cm10 15:52 Sulfa (Sulfonamide Antibiotics); cm10 15:52 TETRACYCLINES; cm10 15:52 Tizanidine; cm10 15:52 tramadol; cm10 - PMHx: 15:52 brain tumor x 5; Cancer; Multiple Sclerosis; Hernia; prolapsed bladder; cm10 - Immunization history:: Adult Immunizations up to date. - Social history:: Smoking status: Patient reports the use of cigarette tobacco products, smokes two packs cigarettes per day. ROS: 18:30 Constitutional: Negative for fever, chills, and weight loss. kb 18:30 MS/extremity: Positive for pain, of the left hip and left leg. 18:30 Neuro: Positive for headache. 18:30 All other systems are negative. Exam: 18:30 Constitutional: This is a well developed, well nourished patient who is awake, alert, kb and in no acute distress. Head/Face: Normocephalic, atraumatic. ENT: Moist Mucous membranes Cardiovascular: Regular rate and rhythm with a normal S1 and S2. No gallops, murmurs, or rubs. No pulse deficits. Respiratory: Respirations even and unlabored. No increased work of breathing. Talking in full sentences Abdomen/GI: Soft, non-tender. No distention Skin: Warm, dry with normal turgor. Normal color. Neuro: Awake and alert, GCS 15, oriented to person, place, time, and situation. Moves all extremities. Normal gait. 18:30 Back: pain, that is mild, that is moderate, of the lumbar area. 18:30 Musculoskeletal/extremity: Extremities: grossly normal except: noted in the left leg and left hip: decreased ROM, pain, tenderness, ROM: limited passive range of motion due to pain, Circulation is intact in all extremities. Sensation intact. Weight bearing: is unable to bear weight. Vital Signs: 15:47 BP 129 / 84; Pulse 65; Resp 16; Temp 98.8(TE); Pulse Ox 100% on R/A; cm10 15:47 Weight 99.79 kg; Height 5 ft. 0 in. ; cm10 20:00 Pulse 80; kl 15:47 Body Mass Index 42.97 (99.79 kg, 152.4 cm) cm10 MDM: 15:39 Patient medically screened. kb 18:32 Differential diagnosis: abrasion, closed head injury, contusion, fracture, sprain, kb strain. Data reviewed: vital signs, nurses notes. 18:33 Counseling: I had a detailed discussion with the patient and/or guardian regarding: the kb historical points, exam findings, and any diagnostic results supporting the discharge/admit diagnosis, radiology results, the need for outpatient follow up, a family practitioner, to return to the emergency department if symptoms worsen or persist or if there are any questions or concerns that arise at home. 01/19 15:54 Order name: CT Head Brain wo Cont; Complete Time: 17:08 kb 01/19 15:54 Order name: Pelvis XRAY; Complete Time: 17:08 kb 01/19 15:54 Order name: Lumbar Spine (3 Views) XRAY; Complete Time: 17:08 kb 01/19 15:54 Order name: Femur Left XRAY; Complete Time: 17:08 kb 01/19 15:54 Order name: Tib Fib Left XRAY; Complete Time: 17:08 kb 01/19 17:25 Order name: CT Pelvis wo Cont; Complete Time: 18:16 kb Administered Medications: 17:24 Drug: [place] PO 10 mg-325 mg 1 tabs Route: PO; nj1 Disposition Summary: 01/19/23 18:17 Discharge Ordered Location: Home kb Condition: Stable kb Diagnosis - Fall on same level from slipping, tripping and stumbling without subsequent kb striking against object - Unspecified injury of head, initial encounter kb - Pain in left hip kb - Pain in left leg kb Followup: kb - With: Emergency Department - When: As needed - Reason: Worsening of condition Followup: kb - With: Private Physician - When: 2 - 3 days - Reason: Recheck today's complaints, Continuance of care, Re-evaluation by your physician Discharge Instructions: - Discharge Summary Sheet kb - Musculoskeletal Pain kb - Head Injury, Adult, [id number] kb Forms: - Medication Reconciliation Form kb - Thank You Letter kb - Antibiotic Education kb - Prescription Opioid Use kb Addendum: 01/22/2023 10:52 Co-signature as Attending Physician, Barney Ventura MD I reviewed the patient's care r n provided by the Advanced Practice Provider and agree with the diagnosis and treatment plan. Signatures: Dispatcher [employer] Nelda Casper, INDUSTRIAL DESIGN INTERN-C INDUSTRIAL DESIGN INTERN-Ckb Barney Ventura MD MD rn Jaco, Norma RN RN nj1 Gabby Thomas RN RN cm10
--- NOTE | 2023-01-19 18:18 | ER ---
Nurse's Notes [facility] Name: Lianne Medina Age: 52 yrs Sex: Female : 1970 Arrival Date: 01/19/2023 Time: 15:12 Bed DX4 Private MD: Diagnosis: Fall on same level from slipping, tripping and stumbling without subsequent striking against object;Unspecified injury of head, initial encounter;Pain in left hip;Pain in left leg Presentation: 01/19 15:47 Chief complaint: Patient states: That she fell earlier today. Pt states, "I lost cm10 control of my limbs and I fell". Pt states that he cannot bear weight on her left leg and is having back pain. Coronavirus screen: Vaccine status: Patient reports being unvaccinated. At this time, the client does not indicate any symptoms associated with coronavirus-19. Ebola Screen: Patient denies travel to an Ebola-affected area in the 21 days before illness onset. No symptoms or risks identified at this time. Initial Sepsis Screen: Does the patient meet any 2 criteria? No. Patient's initial sepsis screen is negative. Does the patient have a suspected source of infection? No. Patient's initial sepsis screen is negative. Risk Assessment: Do you want to hurt yourself or someone else? Patient reports no desire to harm self or others. Onset of symptoms was January 19, 2023. 15:47 Method Of Arrival: Wheelchair cm10 15:47 Acuity: BRANDEN 3 cm10 Triage Assessment: 15:53 General: Appears in no apparent distress. comfortable, Behavior is calm, cooperative. cm10 Historical: - Allergies: 15:52 Celecoxib; cm10 15:52 cyclobenzaprine HCl; cm10 15:52 CYCLOSPORINE; cm10 15:52 divalproex; cm10 15:52 Fentanyl; cm10 15:52 levetiracetam; cm10 15:52 Lorazepam; cm10 15:52 Metoclopramide; cm10 15:52 PENICILLINS; cm10 15:52 Sulfa (Sulfonamide Antibiotics); cm10 15:52 TETRACYCLINES; cm10 15:52 Tizanidine; cm10 15:52 tramadol; cm10 - PMHx: 15:52 brain tumor x 5; Cancer; Multiple Sclerosis; Hernia; prolapsed bladder; cm10 - Immunization history:: Adult Immunizations up to date. - Social history:: Smoking status: Patient reports the use of cigarette tobacco products, smokes two packs cigarettes per day. Screenin:59 Abuse screen: Denies threats or abuse. Tuberculosis screening: No symptoms or risk kl factors identified. Primary Survey: 19:59 NO uncontrolled hemorrhage observed. A: The client is awake and alert. The airway is kl patent. Breathing/Chest: Spontaneous respiratory effort, equal unlabored respirations, breath sounds clear bilaterally, regular pattern, symmetrical chest rise and fall. Circulation: No external hemorrhage present. Regular and strong central pulse, skin warm/dry/normal color. Disability Pupils are equal, round, reactive to light and accommodation. Exposure/Environment: A warming method has been applied: A warm blanket has been provided to the patient. Reassessment Alertness and Airway: Awake and alert. The airway is patent. Assessment: 17:00 Reassessment: Patient appears in no apparent distress at this time. Patient and/or nj1 family updated on plan of care and expected duration. Pain level reassessed. Patient is alert, oriented x 3, equal unlabored respirations, skin warm/dry/pink. Pain: Complains of pain in Left side of body Pain currently is 7 out of 10 on a pain scale. 17:24 Pain: Complains of pain in Hip, left Pain currently is 7 out of 10 on a pain scale. nj1 Vital Signs: 15:47 BP 129 / 84; Pulse 65; Resp 16; Temp 98.8(TE); Pulse Ox 100% on R/A; cm10 15:47 Weight 99.79 kg; Height 5 ft. 0 in. ; cm10 20:00 Pulse 80; kl 15:47 Body Mass Index 42.97 (99.79 kg, 152.4 cm) cm10 ED Course: 15:13 Patient arrived in ED. am2 15:36 Nelda Rosales FNP-C [facility] kb 15:36 Barney Ventura MD is Attending Physician. kb 15:52 Triage completed. cm10 15:53 Arm band placed on Patient placed in waiting room. cm10 16:35 Pelvis XRAY In Process Unspecified. EDMS 16:35 Lumbar Spine (3 Views) XRAY In Process Unspecified. EDMS 16:35 Femur Left XRAY In Process Unspecified. EDMS 16:35 Tib Fib Left XRAY In Process Unspecified. EDMS 16:39 CT Head Brain wo Cont In Process Unspecified. EDMS 17:50 CT Pelvis wo Cont In Process Unspecified. EDMS 19:59 Patient maintains SpO2 saturation greater than 95% on room air. kl 20:09 Knee immobilizer applied on left knee. ds4 Administered Medications: 17:24 Drug: [place] PO 10 mg-325 mg 1 tabs Route: PO; nj1 Outcome: 18:17 Discharge ordered by . kb 20:01 Discharged to home via wheelchair. kl 20:01 Condition: improved 20:01 Discharge instructions given to patient, Instructed on discharge instructions, follow up and referral plans. Demonstrated understanding of instructions, follow-up care. 20:01 Patient left the ED. Signatures: Dispatcher [employer] EDMS Nelda Rosales, GANG TAILER-C GANG TAILER-Ckb Shelly Wilcox, RN RN Arnel Carrero ds4 Kellie Freitas am2 Deborah Silva RN RN nj1 Gabby Thomas RN RN cm10
[2023-01-19 20:09] VITALS: BP 129/84; TEMP 98.8; O2SAT 100
== END 2023-01-19 20:01 | disposition home or self-care (01) ==
LOC: ER 15:12
DX: S09.90XA Unspecified injury of head, initial encounter (principal); M25.552 Pain in left hip; M79.605 Pain in left leg; W01.0XXA Fall on same level from slipping, tripping and stumbling without subsequent striking against object, initial encounter; F17.210 Nicotine dependence, cigarettes, uncomplicated; Z88.0 Allergy status to penicillin; Z88.1 Allergy status to other antibiotic agents; Z88.2 Allergy status to sulfonamides; Z88.3 Allergy status to other anti-infective agents; Z88.5 Allergy status to narcotic agent; Z88.6 Allergy status to analgesic agent; Z88.8 Allergy status to other drugs, medicaments and biological substances; Z91.048 Other nonmedicinal substance allergy status
CPT/HCPCS: 70450; 72100; 72170; 72192; 99284

== ENCOUNTER 2023-08-20 05:20 | Inpatient (IN) | payer OTHER ==
--- OUTSIDE RECORDS SUMMARY | 2023-08-20 05:23 | XMS REPORT | Clinical Summary ---
Author Name Unknown Organization [facility] Address [address] [place] [address] Care Team Providers Care Drag Down Name Role Phone Mingo Street MD Primary Care Provider Nomi Olea MD Unavailable Pedro Comer MD Unavailable Haresh Venegas MD Unavailable Unavailable Magnolia Holden MD Unavailable Prince Abdoul GUITAR INSTRUCTOR Unavailable [phone] Darnell Wellington MD Unavailable [phone] Jossue Suresh PA Unavailable Mingo Street MD Unavailable [phone] Margarita Chaves PA Unavailable [phone] Kimber Mendoza MD Unavailable Cherrie Johnson GUITAR INSTRUCTOR Unavailable Tigist Morgan MD Unavailable Cleopatra Al MD Unavailable [phone] Allergies Active Allergy Reactions Criticality Noted Date Comments Alprazolam Anxiety Low 01/21/2016 Lorazepam Anxiety Low 01/21/2016 Sulfamethoxazole-Trimetho prim Hives 01/21/2016 Celecoxib 04/10/2016 Cephalosporins 04/10/2016 unknown Ciprofloxacin Hcl Other (See Comments) 01/21/20 16 Bladder infection Prochlorperazine 12/15/2021 Cyclosporine Hives 01/21/2016 Divalproex Palpitations Low 01/21/2016 Fentanyl Anxiety,Palpitations ,Other (See Comments) High 12/16/2021 Agitation, Increased heart rate Cyclobenzaprine 04/10/2016 unknown Levetiracetam Rash Low 01/21/2016 Ketorolac High 08/20/2021 Per patient throat closes up [place] Analogues Other (See Comments) 01/21/20 16 Penicillins High 03/01/2016 Throat closes up Metoclopramide Hcl Other (See Comments) Low 016 Tetracyclines Hives 01/21/2016 Tramadol Shortness Of Breath High 03/01/2016 Throat closes up Tizanidine 04/10/2016 unknown Medications Medication Sig Dispensed Refills Start Date End Date Status esomeprazole (NexIUM) 40 MG capsule Take 40 mg by mouth 2 (two) times a day before meals. 0 Active dicyclomine (BENTYL) 10 mg capsule Take 10 mg by mouth every 4 (four) hours as needed. 0 Active ADVAIR DISKUS 100-50 mcg/dose diskus inhaler daily as needed. 1 11/23/2016 Acti ve phenazopyridine (PYRIDIUM) 100 mg tablet Take 100 mg by mouth every 6 (six) hours as needed. 0 Active ondansetron (ZOFRAN) 8 mg tablet 2 tablets 3 (three) times a day. 0 09/09/2021 Active zinc (Chelated Zinc) 50 mg tab Take by mouth. 0 Activ e magnesium oxide-protein complex (Gh-Dsru-Simsjdw Complex) 133 mg tablet Take 4 tablets by mouth daily. 0 Active cholecalciferol, vitamin D3, (VITAMIN D3) 2,000 units tab tablet Take 2,000 Units by mouth. 0 Active ascorbic acid, vitamin C, (vitamin C) 100 mg tablet Take 500 mg by mouth daily. Pt can't remember the dose 0 Active diazePAM (VALIUM) 5 mg tablet Take 5 mg by mouth 4 (four) times a day. As needed 0 Active carisoprodol (SOMA) 350 mg tablet Take 350 mg by mouth. 0 10/27/2007 Active promethazine (PHENERGAN) 12.5 mg tablet Take by mouth. 0 Active ketoconazole (NIZORAL) 2% shampooIndications: Seborrhea capitis Apply topically to affected area(s) 3 (three) times a week Sunday, Sunday and Sunday. Leave in scalp for 5 minutes before washing off 120 mL 11 09/26/2021 09/26/2022 Active Problems Problem Noted Date Diagnosed Date Moderate dehydration 08/13/2021 Nausea 08/13/2021 Bronchopneumonia 01/30/2017 Hyposmolality and/or hyponatremia 01/30/2017 Abdominal pain 01/30/2017 Productive cough 01/30/2017 Dysuria 01/30/2017 Tachycardia 01/30/2017 Hypoxia 01/30/2017 residential current use of opiate analgesic 2016 Post-traumatic stress disorder 11/01/2016 Mild cognitive disorder 11/01/2016 Adjustment disorder with physical complaints 11/2016 Hyponatremia 10/31/2016 Melena 10/31/2016 Endometriosis 10/31/2016 Urinary tract infection 10/31/2016 Colitis 10/31/2016 Chronic pain syndrome 10/31/2016 Tobacco use 10/31/2016 Anemia of chronic disease 10/31/2016 Headache 10/31/2016 Abdominal pain, generalized 04/13/2016 Generalized anxiety disorder 04/13/2016 Encounters Date Type Department Care Team Description 10/24/2022 Telephone [facility] [address] [place] [address], [address] [place] [address] Lyssa Batista RN Missed appointment (No answer, LM for patient to return call to clinic) after 08/20/2022 Surgical History Surgery Date Site/Laterality Comments BREAST RECONSTRUCTION MN ESOPHAGOGASTRODUODENOSCOP Y TRANSORAL DIAGNOSTIC 11/02/2016 Esophagus/N/A Procedure: DIAGNOSTIC UPPER GASTROINTESTINAL ENDOSCOPY; Surgeon: Apoorva Wen MD; Location: MAIN ENDOSCOPY; Service: GASTROENTEROLOGY MN COLONOSCOPY FLX DX W/JEANETTE J SPEC WHEN PFRMD 11/02/2016 N/A Procedure: DIAGNOSTIC FLEXIBLE COLONOSCOPY PROXIMAL TO SPLENIC FLEXURE; Surgeon: Apoorva Wen MD; Location: MAIN ENDOSCOPY; Service: GASTROENTEROLOGY COLONOSCOPY 07/30/1998 - 07/29/1999 EXPLORATORY LAPAROTOMY HYSTERECTOMY [id number] UPPER GASTROINTESTINAL ENDOSCOPY 9 - 07/29/1999 Medical History Medical History Date Comments Stroke Seizure Myocardial infarction 1997 Hyperlipidemia Irregular heart beat Migraine 1982 Multiple sclerosis 1970 Traumatic brain injury 5846-2831 Allergic rhinitis 6839-9168 Sinusitis 9975-7102 Difficulty talking 2017 Tooth disorder 2012 Swallowing problem 2003 Chronic bronchitis 7790-2330 Asbestosis 2650-2270 Pneumonia 2004 Gastric reflux 1987 Colitis 1998 2separate bailee calzada different diagnosis Celiac disease 2006 Malabsorption syndrome 1982 Diverticulitis [id number] Irritable bowel syndrome 1998 Renal stone 1982 History of recurrent urinary tract infection 1987 Urinary incontinence 4313-9636 Sexual dysfunction [id number] Abnormal uterine bleeding un related to menstrual cycle 0786-3056 Polycystic ovarian syndrome 1989 Endometriosis 7018-1938 Dr [facility] endo had traveled to other organs,hips, sp Anemia 2008 Blood transfusion, without r eported diagnosis 1982 Size J, breast total reconst uction Osteoporosis 2009 Osteomyelitis 1994 Breake of wrist had to take antibiotics Anxiety 0851-7269 do not have anxi ety or panic attacks since 2003 Psoriasis 1968-current Endometrial carcinoma Cancer - 1 990's Multiple sclerosis 11/27/[address] Citlali reeves Neurologist in [place] (Pt reported) Family History Medical History Relation Name Comments -Other cancer Father Costa Alegria 1981-? Bone ca ncer [email or web address], [place] Hypertension Father Costa Alegria Melanoma Father Costa Alegria Prostate cancer Father Costa Alegria Sarcoma Father Costa Alegria Bone cancer Skin cancer Father Costa Alegria Colon cancer Maternal Aunt Debbielynn Colon cancer Maternal Grandfather Prashant Diazp Graves' disease Maternal Grandfather Prashant Diazp Head and neck cancer Maternal Grandfather Prashant Zenon Skin cancer Maternal Grandfather Prashant Diazp Thyroid cancer Maternal Grandfather Prashant Diazp Decea sed Graves' disease Mother Florence Melanoma Mother Florence Multiple Myeloma Mother Florence Never smoke d Skin cancer Mother Florence Thyroid cancer Mother Florence -Unknown cancer Paternal Aunt 1 Billysue Raji Colon cancer Paternal Aunt 1 Billysue Raji Ovarian cancer Paternal Aunt 1 Billysue Raji Kidney cancer Paternal Aunt 2 Debbielynn Lung cancer Paternal Grandfather Demar d Mesothelioma Paternal Grandfather Demar d Multiple Myeloma Paternal Grandfather Demar Dec eased 1970 Bile duct cancer Paternal Grandmother Hunt Liver cancer Paternal Grandmother Hunt Stomach cancer Paternal Grandmother Hunt Brain cancer Paternal Uncle Prashant -Unknown cancer Sister David Graves' disease Sister David Uterine cancer Sister David Vaginal cancer Sister David Relation Name Status Comments Father Costa Alegria Maternal Aunt Debramírez Maternal Grandfather Prashant Yarbrough Mother Florence Paternal Aunt 1 Yenny Alegria Paternal Aunt 2 Debbielynn Paternal Grandfather Demar Paternal Grandmother Hunt Paternal Uncle Prashant Sister David Social History Tobacco Use Types Packs/Day Years Used Date Smoking Tobacco: Every Day Cigarettes 1.5 15 Started: 11/29/2006 Smokeless Tobacco: Never Tobacco Cessation:Ready to Q uit: No Alcohol Use Standard Drinks/Week Comments No 0 (1 standard drink = 0.6 oz pur e alcohol) Sex and Gender Information Value Date Recorded Sex Assigned at Female 11/22/2021 4:37 PM CDT Gender Identity Female 09/14/2021 3:07 AM BIZTALK CONSULTANT Sexual Orientation Straight 09/14/2021 3: 07 AM BIZTALK CONSULTANT Job Start Date Occupation Industry Not on file Not on file Not on file Obstetrics History Para Term AB IAB SAB Ectopic Multiple Livin g Live Births 2 2 2 Date Outcome GA Total Labor Labor/2nd/3rd Weight Sex Delivery Anes PTL Arlette A1 A5 Name Cl in Para Para Comments Menarche 12 Parity 19 OBC yes Hormonal Therapy yes Last Pap 2009 Abnormal Pap yes Last [place] 2009 Last Colon yes Breast Bx no Plan of Treatment Health Maintenance Due Date Last Done Comments COVID-19 Vaccination (#1) 01/22/1969 Advance Directives Latest Code Status on File Code Status Date Activated Date Inactivated Comments Full Code 08/13/2021 11:31 PM 08/14/2021 11:37 AM Code Status History Code Status Date Activated Date Inactivated Comments Full Code 01/30/2017 9:39 PM 01/31/2017 3:59 PM Full Code 10/31/2016 4:56 AM 11/04/2016 5:01 PM Full Code 04/10/2016 10:29 PM 04/12/2016 5:58 PM Care Teams Drag Down Relationship Specialty Start Date End Date Mingo Street MD [address] [place] [id number] PCP - General 09/29/15 Nomi Olea MD [address] [place] [address] [phone] PCP - External Follow Up A 04/03/14 Pedro Comer MD [address] [facility] [address] [place] [address] PCP - External Follow Up B 04/20/14 Kimber Mendoza MD [address] [place] [address] [phone] PCP - External Follow Up C Internal Medicine 11/08/21 Haresh Venegas MD Nurse Practitioner 10/06/15 Magnolia Holden MD [address] [place] [phone] Physician 10/06/15 Prince Schreiber APRN [address] [place] [address] [phone] Nurse Practitioner 10/06/15 Darnell Wellington MD [address] [place] [address] [phone] Physician 10/06/15 Jossue Suresh PA [address] [place] [address] [phone] Physician Stack Attendant 10/06/[address] MD [address] [place] [address] [phone] Physician 10/06/15 Margarita Chaves PA [address] [place] [address] [phone] Physician Stack Attendant 10/06/15 Cherrie Johnson APRN [address] [place] [address] [phone] Nurse Practitioner Cancer Prevention 09/16/21 Tigist Morgan MD [address] [place] [address] [phone] Consulting Physician Dermatology 09/26/21 Cleopatra Al MD [address] [place] [address] [phone] Consulting Physician Gynecological Oncology 12/07/16
[2023-08-20 06:10] LABS: Absolute Lymphocytes (CBC) 3.1 K/uL (0.7-4.9); Hematocrit 38.1 % (36.0-45.0); Lymphocytes % 23.4 % (15.3-44.8); MCV 73.8 fL (80-100); MPV 8.3 fL (7.6-11.3); Platelets 233 thou/uL (152-406); RBC Red Blood Cell Count 5.16 M/uL (3.86-4.86)
[2023-08-20 06:32] LABS: Protime INR 1.19
[2023-08-20 06:38] LABS: Magnesium 1.1 mg/dL (1.6-2.4); Troponin High Sensitivity 3.5 pg/mL (<58.9)
[2023-08-20 06:43] LABS: Potassium 2.6 mEq/L (3.5-5.1)
[2023-08-20] MEDS ORDERED: MAGNESIUM SULFATE 1 gm IVPB 1 GM/100 ML BAG IV ONE (06:51)
[2023-08-20] MEDS ORDERED: CALCIUM GLUCONATE 1 GM IVPB 1 GM/50 ML BAG IV ONE ×2 (06:51→18:45)
[2023-08-20] MEDS ORDERED: POTASSIUM 25 MEQ EFFERV TAB ONE (06:51)
[2023-08-20] MEDS ORDERED: NA CHLORIDE 0.9% 100 ML ONE (06:51)
--- NOTE | 2023-08-20 07:11 | EDPHYS ---
Physician Documentation [facility] Name: Lianne Medina Age: 53 yrs Sex: Female : 1970 Arrival Date: 08/20/2023 Time: 05:20 Bed 6 Private MD: ED Physician Jb Pandey HPI: 08/20 05:49 This 53 yrs old Female presents to ER via Wheelchair with complaints of Numbness. ms3 05:49 53-year-old female with past medical history of brain aneurysm with rupture, brain ms3 tumor treated with radiation at [facility], diabetes, multiple sclerosis, hypertension, anemia presents to the emergency department for left sided body numbness. Patient denies any pain. Patient denies any alleviating or inciting factors. Patient states her last known normal time was 2 AM. Patient states at 2 AM she took promethazine.. Historical: - Allergies: 05:43 Celecoxib; jb4 05:43 cyclobenzaprine HCl; jb4 05:43 CYCLOSPORINE; jb4 05:43 divalproex; jb4 05:43 Fentanyl; jb4 05:43 levetiracetam; jb4 05:43 Lorazepam; jb4 05:43 Metoclopramide; jb4 05:43 PENICILLINS; jb4 05:43 Sulfa (Sulfonamide Antibiotics); jb4 05:43 TETRACYCLINES; jb4 05:43 Tizanidine; jb4 05:43 tramadol; jb4 - Home Meds: 06:02 Bentyl 10 mg Oral cap 1 cap 4 times per day [Active]; Soma 350 mg Oral tab 1.5 tab four jb4 times a day [Active]; promethazine 25 mg Oral tab 1 tab every 6 hours [Active]; potassium chloride 20 mEq Oral TbER 3 tab once daily [Active]; phenazopyridine 100 mg Oral tab every 4 hours [Active]; Nexium 40 mg Oral cpDR 2 times per day [Active]; hydrocodone-acetaminophen 5-300 mg Oral tab 2 tab every 4 hours [Active]; Klonopin 1 mg Oral tab four times a day [Active]; - PMHx: 05:43 brain tumor x 5; Hernia; Cancer; Multiple Sclerosis; prolapsed bladder; jb4 06:02 brain aneurysm; jb4 - Immunization history:: Adult Immunizations up to date. - Social history:: Smoking status: Patient denies any tobacco usage or history of. ROS: 05:49 Constitutional: Negative for fever, and chills. Neck: Negative for injury, pain, and ms3 swelling, Cardiovascular: Negative for chest pain, and palpitations. Respiratory: Negative for shortness of breath, cough, wheezing, and pleuritic chest pain, Abdomen/GI: Negative for abdominal pain, nausea, vomiting, diarrhea, and constipation, MS/Extremity: Negative for injury and deformity, 05:49 Neuro: Positive for numbness, 05:49 All other systems are negative, Exam: 05:49 Constitutional: This is a well developed, well nourished patient who is awake, alert, ms3 and in no acute distress. Head/Face: Normocephalic, atraumatic. Eyes: Pupils equal round and reactive to light, extra-ocular motions intact. Lids and lashes normal. Conjunctiva and sclera are non-icteric and not injected. Periorbital areas with no swelling, redness, or edema. Neck: Trachea midline, no cervical lymphadenopathy. Supple, full range of motion without nuchal rigidity, or vertebral point tenderness. No Meningismus. Chest/axilla: Normal chest wall appearance and motion. Nontender with no deformity. Cardiovascular: Regular rate and rhythm with a normal S1 and S2. No gallops, murmurs, or rubs. Normal PMI, no JVD. No pulse deficits. Respiratory: Lungs have equal breath sounds bilaterally, clear to auscultation and percussion. No rales, rhonchi or wheezes noted. No increased work of breathing, no retractions or nasal flaring. Abdomen/GI: Soft, non-tender, with normal bowel sounds. No distension or tympany. No guarding or rebound. No evidence of tenderness throughout. Skin: Warm, dry with normal turgor. Normal color with no rashes, no lesions, and no evidence of cellulitis. MS/ Extremity: Pulses equal, no cyanosis. Neurovascular intact. Full, normal range of motion. 05:49 Neuro: Orientation: is normal, to person, place, time \T\ situation. Mentation: is normal, Cerebellar function: is grossly normal, Motor: is normal, Sensation: numbness, of the Left side of face and body, 07:10 Radiologist reports: CT Head negative ms3 09:53 ECG was reviewed by the Attending Physician. ms3 Vital Signs: 05:41 BP 154 / 78; Pulse 87; Resp 16; Pulse Ox 96% on R/A; jb4 06:00 BP 137 / 93; Pulse 81; Resp 18 S; Pulse Ox 100% on R/A; jw7 06:30 BP 140 / 95; Pulse 80; Resp 18 S; Pulse Ox 98% on R/A; jw7 07:14 Temp 98; jb4 07:32 BP 117 / 93; Pulse 84; Resp 18 S; Pulse Ox 93% on R/A; kc6 09:08 BP 130 / 92; Pulse 81; Resp 18 S; Pulse Ox 93% on R/A; kc6 NIH Stroke Scale Scores: 05:48 NIHSS Score: 1 jb4 06:11 NIHSS Score: 1 ms3 MDM: 05:38 Patient medically screened. ms3 05:49 Management of patient was discussed with the following: Nursing Attendant: Discussed case with ms3 Dr Sánchez. Patient not candidate for TNKase as patient has had aneurysm with rupture.. 05:49 Differential diagnosis: CVA, TIA, metabolic disorder, drug effects, ICH vs MS flare. ms3 09:00 Data reviewed: vital signs, nurses notes, lab test result(s), EKG, radiologic studies, ms3 and as a result, I will admit patient. Consideration of Admission/Observation Patient was admitted/placed on observation. Management of patient was discussed with the following: Hospitalist: Hospitalist. I considered the following discharge prescriptions or medication management in the emergency department Medications were administered in the Emergency Department. See MAR. Independent interpretation of the following test(s) in the Emergency Department EKG: See my EKG interpretation above CT Scan: My interpretation is CT Head without contrast images reviewed do not reveal ICH. Historians other than the Patient: Daughter/Son: Patient's daughter. Counseling: I had a detailed discussion with the patient and/or guardian regarding the historical points, exam findings, and any diagnostic results supporting the discharge/admit diagnosis, lab results, radiology results, the need for further work-up and treatment in the hospital. 08/20 05:38 Order name: Basic Metabolic Panel; Complete Time: 06:44 ms3 08/20 05:38 Order name: CBC with Diff ms3 08/20 05:38 Order name: High Sensitivity Troponin; Complete Time: 06:44 ms3 08/20 05:38 Order name: Magnesium; Complete Time: 06:44 ms3 08/20 05:38 Order name: Protime (+inr); Complete Time: 06:44 ms3 08/20 05:38 Order name: Ptt, Activated; Complete Time: 06:44 ms3 08/20 06:20 Order name: Glucose, Ancillary Testing; Complete Time: 06:44 EDMS 08/20 06:49 Order name: CREATININE WHOLE BLOOD; Complete Time: 06:51 EDMS 08/20 07:41 Order name: Thyroid Stimulating Hormone EDMS 08/20 07:41 Order name: Vitamin B12 Level EDMS 08/20 07:41 Order name: Basic Metabolic Panel EDMS 08/20 07:41 Order name: Basic Metabolic Panel EDMS 08/20 07:41 Order name: Basic Metabolic Panel EDMS 08/20 07:41 Order name: Basic Metabolic Panel EDMS 08/20 07:41 Order name: Basic Metabolic Panel EDMS 08/20 07:41 Order name: CBC with Automated Diff EDMS 08/20 07:41 Order name: CBC with Automated Diff EDMS 08/20 07:41 Order name: CBC with Automated Diff EDMS 08/20 07:41 Order name: CBC with Automated Diff EDMS 08/20 07:41 Order name: CBC with Automated Diff EDMS 08/20 07:41 Order name: Lipid Profile EDMS 08/20 07:41 Order name: Lipid Profile EDMS 08/20 07:41 Order name: Magnesium EDMS 08/20 07:41 Order name: Magnesium EDMS 08/20 07:41 Order name: Magnesium EDMS 08/20 07:41 Order name: Magnesium EDMS 08/20 07:41 Order name: Magnesium EDMS 08/20 09:33 Order name: CBC Smear Scan EDMS 08/20 11:33 Order name: Basic Metabolic Panel EDMS 08/20 11:33 Order name: Magnesium EDMS 08/20 05:38 Order name: CT Head Angio ms3 08/20 05:38 Order name: CT Neck Angio ms3 08/20 05:38 Order name: CT Stroke Brain w/o Contrast ms3 08/20 05:38 Order name: Stroke CXR 1 View ms3 08/20 07:41 Order name: Echo with Doppler EDMS 08/20 10:15 Order name: RAD EDMS 08/20 05:38 Order name: EKG; Complete Time: 05:39 ms3 08/20 07:36 Order name: CONS Physician Consult ED[facility] 08/20 07:41 Order name: IRF Screen ED[facility] 08/20 07:41 Order name: Physical Therapy Consult ED[facility] 08/20 07:41 Order name: Speech Therapy Consult ED[facility] 08/20 05:38 Order name: Accucheck; Complete Time: 06:09 ms3 08/20 05:38 Order name: Cardiac monitoring; Complete Time: 06:04 ms3 08/20 05:38 Order name: EKG - Nurse/Tech; Complete Time: 05:47 ms3 08/20 05:38 Order name: IV Saline Lock; Complete Time: 06:04 ms3 08/20 05:38 Order name: Labs collected and sent; Complete Time: 06:04 ms3 08/20 05:38 Order name: NPO; Complete Time: 06:04 ms3 08/20 05:38 Order name: O2 Per Protocol; Complete Time: 06:04 ms3 08/20 05:38 Order name: O2 Sat Monitoring; Complete Time: 06:04 ms3 08/20 05:38 Order name: Stroke Swallow Screen; Complete Time: 06:09 ms3 EC:53 Rate is 82 beats/min. Rhythm is regular. QRS [place] is Normal. ND interval is normal. QRS ms3 interval is normal. Clinical impression: NSR w/ Non-specific ST/T Changes. Interpreted by me. Reviewed by me. Administered Medications: 07:06 Drug: Potassium PO Effervescent Tablet 50 mEq PO once; dissolve in 4 ounces of water or jw7 juice Route: PO; 07:32 Follow up: Response: No adverse reaction kc6 07:06 Drug: Calcium Gluconate IVPB 1 grams IVPB once over 60 mins; (mix in NS 100 mL) Route: jw7 IVPB; Infused Over: 60 mins; Site: right antecubital; 07:50 Follow up: Response: No adverse reaction; IV Status: Completed infusion; IV Intake: kc6 100ml 07:50 Drug: Magnesium Sulfate IVPB 1 grams IVPB once over 1 hrs Route: IVPB; Infused Over: 1 kc6 hrs; Site: right antecubital; Disposition Summary: 08/20/23 07:10 Hospitalization Ordered Notes: Hospitalization Status: Inpatient Admission ms3 Provider: Madhu Clayton ms3 Location: Telemetry/MedSurg (Inpatient) ms3 Condition: Stable ms3 Problem: new ms3 Symptoms: are unchanged ms3 Bed/Room Type: Standard ms3 Room Assignment: 212(08/20/23 12:21) ja1 Diagnosis - Paresthesia of skin ms3 - Hypokalemia ms3 - Hypocalcemia ms3 - Hypomagnesemia ms3 - Essential (primary) hypertension ms3 Forms: - Medication Reconciliation Form ms3 - SBAR form ms3 - Leadership Thank You Letter ms3 NIH Stroke Scale - NIH Stroke Score Date: 08/20/2023 Time: 05:48 Total Score = 1 10. Dysarthria (speech clarity - read or repeat words) - 0(Normal) 11. Extinction and Inattention (visual/tactile/auditory/spatial/personal) - 0(No abnormality) 1a. Level of Consciousness (LOC) - 0(Alert) 1b. Level of Consciousness (LOC) (Month \T\ Age) - 0(Both) 1c. LOC Commands (Open \T\ Closes Eyes/Sugar Grinder) - 0(Both) 2. Best Gaze (Lateral Gaze Paresis) - 0(Normal) 3. Visual Field Loss - 0(No visual loss) 4. Facial Palsy - 0(Normal) 5a. Left Arm: Motor (10-second hold) - 0(No drift) 5b. Right Arm: Motor (10-second hold) - 0(No drift) 6a. Left Leg: Motor (5-second hold - always test supine) - 0(No drift) 6b. Right Leg: Motor (5-second hold - always test supine) - 0(No drift) 7. Limb Ataxia (finger/nose \T\ heel/mejia - test with eyes open) - 0(Absent) 8. Sensory Loss (pinprick arms/legs/face) - 1(Mild to moderate loss) 9. Best Language: Aphasia (description/naming/reading) - 0(No aphasia) Initials: jb4 NIH Stroke Scale - NIH Stroke Score Date: 08/20/2023 Time: 06:11 Total Score = 1 10. Dysarthria (speech clarity - read or repeat words) - 0(Normal) 11. Extinction and Inattention (visual/tactile/auditory/spatial/personal) - 0(No abnormality) 1a. Level of Consciousness (LOC) - 0(Alert) 1b. Level of Consciousness (LOC) (Month \T\ Age) - 0(Both) 1c. LOC Commands (Open \T\ Closes Eyes/Sugar Grinder) - 0(Both) 2. Best Gaze (Lateral Gaze Paresis) - 0(Normal) 3. Visual Field Loss - 0(No visual loss) 4. Facial Palsy - 0(Normal) 5a. Left Arm: Motor (10-second hold) - 0(No drift) 5b. Right Arm: Motor (10-second hold) - 0(No drift) 6a. Left Leg: Motor (5-second hold - always test supine) - 0(No drift) 6b. Right Leg: Motor (5-second hold - always test supine) - 0(No drift) 7. Limb Ataxia (finger/nose \T\ heel/mejia - test with eyes open) - 0(Absent) 8. Sensory Loss (pinprick arms/legs/face) - 1(Mild to moderate loss) 9. Best Language: Aphasia (description/naming/reading) - 0(No aphasia) Initials: ms3 Signatures: Dispatcher [employer] EDMS Mikaela Christensen James, RN RN jb4 Marvin Morejon RN RN ja1 Jb Pandey DO DO ms3 Mercedes Bowman RN RN jw7 Sheree Cobb RN RN kc6 Corrections: (The following items were deleted from the chart) 06:03 06:02 PMHx: Aneurysm; jb4 jb4 11:16 07:10 ms3 bd 12:21 11:16 223 bd ja1
--- NOTE | 2023-08-20 07:11 | ER ---
Nurse's Notes [facility] Name: Lianne Medina Age: 53 yrs Sex: Female : 1970 Arrival Date: 08/20/2023 Time: 05:20 Bed 6 Private MD: Diagnosis: Paresthesia of skin;Hypokalemia;Hypocalcemia;Hypomagnesemia;Essential (primary) hypertension Presentation: 08/20 05:41 Chief complaint: Patient states: I was last normal at about 2am -0230am before I went jb4 to bed. I woke up at 0330 with a numbing pain down the left side of my body. Coronavirus screen: At this time, the client does not indicate any symptoms associated with coronavirus-19. Ebola Screen: No symptoms or risks identified at this time. Initial Sepsis Screen: Does the patient meet any 2 criteria? No. Patient's initial sepsis screen is negative. Does the patient have a suspected source of infection? No. Patient's initial sepsis screen is negative. Risk Assessment: Do you want to hurt yourself or someone else? Patient reports no desire to harm self or others. Onset of symptoms was August 20, 2023. Transition of care: patient was not received from another setting of care. 05:41 Method Of Arrival: Wheelchair jb4 05:41 Acuity: BRANDEN 3 jb4 Historical: - Allergies: 05:43 Celecoxib; jb4 05:43 cyclobenzaprine HCl; jb4 05:43 CYCLOSPORINE; jb4 05:43 divalproex; jb4 05:43 Fentanyl; jb4 05:43 levetiracetam; jb4 05:43 Lorazepam; jb4 05:43 Metoclopramide; jb4 05:43 PENICILLINS; jb4 05:43 Sulfa (Sulfonamide Antibiotics); jb4 05:43 TETRACYCLINES; jb4 05:43 Tizanidine; jb4 05:43 tramadol; jb4 - Home Meds: 06:02 Bentyl 10 mg Oral cap 1 cap 4 times per day [Active]; Soma 350 mg Oral tab 1.5 tab four jb4 times a day [Active]; promethazine 25 mg Oral tab 1 tab every 6 hours [Active]; potassium chloride 20 mEq Oral TbER 3 tab once daily [Active]; phenazopyridine 100 mg Oral tab every 4 hours [Active]; Nexium 40 mg Oral cpDR 2 times per day [Active]; hydrocodone-acetaminophen 5-300 mg Oral tab 2 tab every 4 hours [Active]; Klonopin 1 mg Oral tab four times a day [Active]; - PMHx: 05:43 brain tumor x 5; Hernia; Cancer; Multiple Sclerosis; prolapsed bladder; jb4 06:02 brain aneurysm; jb4 - Immunization history:: Adult Immunizations up to date. - Social history:: Smoking status: Patient denies any tobacco usage or history of. Screenin:50 [facility] ED Fall Risk Assessment (Adult) History of falling in the last 3 months, jw7 including since admission No falls in past 3 months (0 pts) Score/Fall Risk Level 0 - 2 = Low Risk Oriented to surroundings, Maintained a safe environment, Educated pt \T\ family on fall prevention, incl call for assistance when getting out of bed. Abuse screen: Denies threats or abuse. Denies injuries from another. Nutritional screening: No deficits noted. Tuberculosis screening: No symptoms or risk factors identified. Assessment: 05:48 TNKase (Tenecteplase) Screening: Contraindications: Intracranial neoplasm, AV jb4 Malformation, Aneurysm: Yes. 05:48 General: Appears in no apparent distress. comfortable, Behavior is calm, cooperative, jb4 appropriate for age, Pt noted to have tetany in the right hand when blood pressure cuff inflated.. Pain: Complains of pain in Left side of body and head Pain does not radiate. Pain currently is 8 out of 10 on a pain scale. Quality of pain is described as numb. Neuro: Level of Consciousness is awake, alert, obeys commands, Oriented to person, place, time, situation. Cardiovascular: Patient's skin is warm and dry. Respiratory: Airway is patent Respiratory effort is even, unlabored, Respiratory pattern is regular, symmetrical. GI: No signs and/or symptoms were reported involving the gastrointestinal system. : No signs and/or symptoms were reported regarding the genitourinary system. EENT: No signs and/or symptoms were reported regarding the EENT system. Derm: Skin is intact, Skin is pink, warm \T\ dry. Musculoskeletal: Circulation, motion, and sensation intact. Range of motion: intact in all extremities. 06:11 VAN Scoring: Arm Drift: Patients demonstrates NO arm weakness. Patient is VAN Negative. jb4 [place] Swallow Protocol Brief Cognitive Screen What is your name? Normal, Where are you right now? Normal, What year is it? Normal. Oral Mechanism Examination Facial Symmetry: Normal, Motion: Normal, Lip Closure: Normal, Oral Mechanism Result: Normal. 3 oz Water Swallow Challenge: Pt able to drink all water without stopping, coughing, choking or throat clearing: Yes. 07:00 Reassessment: Patient appears in no apparent distress at this time. No changes from [facility] previously documented assessment. Patient and/or family updated on plan of care and expected duration. Pain level reassessed. Patient is alert, oriented x 3, equal unlabored respirations, skin warm/dry/pink. 08:00 Reassessment: Patient appears in no apparent distress at this time. No changes from [facility] previously documented assessment. Patient and/or family updated on plan of care and expected duration. Pain level reassessed. Patient is alert, oriented x 3, equal unlabored respirations, skin warm/dry/pink. 09:00 Reassessment: Patient appears in no apparent distress at this time. No changes from [facility] previously documented assessment. Patient and/or family updated on plan of care and expected duration. Pain level reassessed. Patient is alert, oriented x 3, equal unlabored respirations, skin warm/dry/pink. 10:24 Reassessment: please see [facility] for further charting. kc6 11:22 Reassessment: attempted to call report to 2nd floor. nurse Zakiya unavailable. kc6 Vital Signs: 05:41 BP 154 / 78; Pulse 87; Resp 16; Pulse Ox 96% on R/A; jb4 06:00 BP 137 / 93; Pulse 81; Resp 18 S; Pulse Ox 100% on R/A; jw7 06:30 BP 140 / 95; Pulse 80; Resp 18 S; Pulse Ox 98% on R/A; jw7 07:14 Temp 98; jb4 07:32 BP 117 / 93; Pulse 84; Resp 18 S; Pulse Ox 93% on R/A; kc6 09:08 BP 130 / 92; Pulse 81; Resp 18 S; Pulse Ox 93% on R/A; kc6 NIH Stroke Scale Scores: 05:48 NIHSS Score: 1 jb4 06:11 NIHSS Score: 1 ms3 ED Course: 05:26 Patient arrived in ED. gm2 05:32 Pandey, Jb, DO is Attending Physician. ms3 05:43 Triage completed. jb4 05:50 Patient has correct armband on for positive identification. Bed in low position. Call jw7 light in reach. 06:03 CT Head Angio In Process Unspecified. EDMS 06:03 CT Neck Angio In Process Unspecified. EDMS 06:03 CT Stroke Brain w/o Contrast In Process Unspecified. EDMS 06:04 Ptt, Activated Sent. jb4 06:04 Protime (+inr) Sent. jb4 06:04 Magnesium Sent. jb4 06:04 High Sensitivity Troponin Sent. jb4 06:04 CBC with Diff Sent. jb4 06:04 Basic Metabolic Panel Sent. jb4 06:08 Stroke CXR 1 View In Process Unspecified. EDMS 06:39 Arm band placed on. jw7 07:00 Report received from VITA Cooper. kc6 07:09 Madhu Clayton MD is Hospitalizing Provider. ms3 10:25 No provider procedures requiring assistance completed. Patient admitted, IV remains in kc6 place. 12:04 Scar Singh, VITA is Primary Nurse. bp Administered Medications: 07:06 Drug: Potassium PO Effervescent Tablet 50 mEq PO once; dissolve in 4 ounces of water or jw7 juice Route: PO; 07:32 Follow up: Response: No adverse reaction kc6 07:06 Drug: Calcium Gluconate IVPB 1 grams IVPB once over 60 mins; (mix in NS 100 mL) Route: jw7 IVPB; Infused Over: 60 mins; Site: right antecubital; 07:50 Follow up: Response: No adverse reaction; IV Status: Completed infusion; IV Intake: kc6 100ml 07:50 Drug: Magnesium Sulfate IVPB 1 grams IVPB once over 1 hrs Route: IVPB; Infused Over: 1 kc6 hrs; Site: right antecubital; Medication: 06:39 VIS not applicable for this client. jw7 Intake: 07:50 IV: 100ml; Total: 100ml. kc6 Outcome: 07:10 Decision to Hospitalize by Provider. ms3 10:25 Admitted to ER Hold. Please see [facility] for further documentation. kc6 10:25 Condition: good 10:25 Instructed on the need for admit, 12:36 Patient left the ED. iw NIH Stroke Scale - NIH Stroke Score Date: 08/20/2023 Time: 05:48 Total Score = 1 10. Dysarthria (speech clarity - read or repeat words) - 0(Normal) 11. Extinction and Inattention (visual/tactile/auditory/spatial/personal) - 0(No abnormality) 1a. Level of Consciousness (LOC) - 0(Alert) 1b. Level of Consciousness (LOC) (Month \T\ Age) - 0(Both) 1c. LOC Commands (Open \T\ Closes Eyes/Radio Engineer) - 0(Both) 2. Best Gaze (Lateral Gaze Paresis) - 0(Normal) 3. Visual Field Loss - 0(No visual loss) 4. Facial Palsy - 0(Normal) 5a. Left Arm: Motor (10-second hold) - 0(No drift) 5b. Right Arm: Motor (10-second hold) - 0(No drift) 6a. Left Leg: Motor (5-second hold - always test supine) - 0(No drift) 6b. Right Leg: Motor (5-second hold - always test supine) - 0(No drift) 7. Limb Ataxia (finger/nose \T\ heel/mejia - test with eyes open) - 0(Absent) 8. Sensory Loss (pinprick arms/legs/face) - 1(Mild to moderate loss) 9. Best Language: Aphasia (description/naming/reading) - 0(No aphasia) Initials: jb4 NIH Stroke Scale - NIH Stroke Score Date: 08/20/2023 Time: 06:11 Total Score = 1 10. Dysarthria (speech clarity - read or repeat words) - 0(Normal) 11. Extinction and Inattention (visual/tactile/auditory/spatial/personal) - 0(No abnormality) 1a. Level of Consciousness (LOC) - 0(Alert) 1b. Level of Consciousness (LOC) (Month \T\ Age) - 0(Both) 1c. LOC Commands (Open \T\ Closes Eyes/Radio Engineer) - 0(Both) 2. Best Gaze (Lateral Gaze Paresis) - 0(Normal) 3. Visual Field Loss - 0(No visual loss) 4. Facial Palsy - 0(Normal) 5a. Left Arm: Motor (10-second hold) - 0(No drift) 5b. Right Arm: Motor (10-second hold) - 0(No drift) 6a. Left Leg: Motor (5-second hold - always test supine) - 0(No drift) 6b. Right Leg: Motor (5-second hold - always test supine) - 0(No drift) 7. Limb Ataxia (finger/nose \T\ heel/mejia - test with eyes open) - 0(Absent) 8. Sensory Loss (pinprick arms/legs/face) - 1(Mild to moderate loss) 9. Best Language: Aphasia (description/naming/reading) - 0(No aphasia) Initials: ms3 Signatures: Dispatcher [employer] EDMallory Cruz RN RN iw Chriss Perez RN RN jb4 Scar Singh, RN RN Jb Carlos, DO ms3 Mercedes Bowman, RN RN jw7 Sheree Cobb RN RN kc6 Nesha Christian 2 Corrections: (The following items were deleted from the chart) 06:03 06:02 PMHx: Aneurysm; jb4 jb4 10:25 10:24 Reassessment: please see triage assessment lucius kc6
[2023-08-20] MEDS ORDERED: ACETAMINOPHEN 500 MG TAB PO PRN (07:35)
--- NOTE | 2023-08-20 07:40 | P.HP ---
Certification for Inpatient Patient admitted to: Inpatient With expected LOS: <2 Midnights <Janice Crump - Last Filed: 08/20/23 08:49> Patient History Date of Service: 08/20/23 Reason for admission: Paresthesia History of Present Illness: 53-year-old female with a past medical history of brain tumor, brain aneurysm, hernia, cancer, multiple sclerosis, prolapsed bladder, presents to the emergency room with complaints of numbness. She reports history of multiple sclerosis, reports history of a brain tumor treated with radiation at [facility]. She reports left-sided numbness that started at 2 AM, reports taking promethazine at that time. She reports nothing makes symptoms better, nothing makes symptoms worse. Plan to admit for paresthesia, hypokalemia, hypocalcemia, hypomagnesia, with Dr. Sánchez neurology to consult. NIH stroke scale 1 with paresthesia to the left side of the body. - Past Medical/Surgical History Diabetic: No -: cancer -: prlapsed bladder -: brain tumor x 5 -: MS -: Multiple abdominal surgeriesendometriosis -: -: Breast reconstruction Psychosocial/ Personal History: Patient is disabled, lives at home with her /daughter. - Family History Father -: Hypertension Mother -: Other (see notes) Notes: thyroid problems - Social History Alcohol use: No CD- Drugs: No Caffeine use: Yes <Janice Crump - Last Filed: 08/20/23 08:49> Date of Service: 08/20/23 <Madhu Clayton C - Last Filed: 08/20/23 18:33> Allergies Penicillins Allergy (Severe, Verified 08/04/22 19:40) anaphalxis cyclobenzaprine HCl [From Flexeril] Allergy (Intermediate, Verified 08/04/22 19:40) sob Sulfa (Sulfonamide Antibiotics) [Sulfa(Sulfonamide Antibiotics)] Allergy (Intermediate, Verified 08/04/22 19:40) anaphalxis tramadol HCl [From Ultram] Allergy (Intermediate, Verified 08/04/22 19:40) hives, sob tetracycline [Tetracycline] Allergy (Mild, Verified 08/04/22 19:40) anaphalyxis celecoxib Allergy (Verified 08/04/22 19:40) Unknown levetiracetam Allergy (Verified 08/04/22 19:40) Unknown lorazepam Allergy (Verified 08/04/22 19:40) Unknown tizanidine Allergy (Verified 08/04/22 19:40) Unknown CYCLOSPORINE Allergy (Mild, Uncoded 08/04/22 19:40) Anaphylaxis divalproex Allergy (Mild, Uncoded 08/04/22 19:40) Unknown METOCLOPRAMIDE Adverse Reaction (Mild, Uncoded 08/04/22 19:40) Unknown Home Medications: Carisoprodol [Soma] 1.5 tab PO TID PRN 04/03/18 Dicyclomine HCl 1 tab PO TID 04/03/18 Esomeprazole Mag Trihydrate [Nexium] 20 mg PO BREAKFAST 04/03/18 Hydrocodone/Acetaminophen [Hydrocodone-Acetamin 5-300 mg] 1 tab PO Q8H PRN 04/03/18 Phenazopyridine HCl [Pyridium] 1 tab PO TID PRN 04/03/18 Promethazine HCl 1 tab PO Q12HR PRN 04/03/18 Atorvastatin Calcium 10 mg PO DAILY 08/04/22 Carvedilol [Coreg] 25 mg PO BID 08/04/22 Esomeprazole Magnesium 40 mg PO DAILY 08/04/22 Fluticasone [Flonase 50MCG Nasal [place]*] 2 sprays NS DAILY 08/04/22 Gabapentin 300 mg PO TID 08/04/22 Montelukast [Singulair*] 10 mg PO DAILY 08/04/22 Ondansetron [Zofran (Odt)*] 4 mg PO Q8H PRN 08/04/22 Pantoprazole [Protonix Tab*] 40 mg PO DAILY 08/04/22 methocarbamoL [Methocarbamol] 300 mg PO Q12H 08/04/22 clindamycin HCL [Clindamycin HCl] 150 mg PO Q6H 7 Days #28 tab 08/05/22 Review of Systems per HPI <Janice Crump - Last Filed: 08/20/23 08:49> Physical Examination - Physical Exam General: Alert, In no apparent distress, Oriented x3, Obese HEENT: Atraumatic, Normocephalic, PERRLA Neck: Supple, 2+ carotid pulse no bruit, JVD not distended Respiratory: Clear to auscultation bilaterally, Normal air movement Cardiovascular: Normal pulses, Regular rate/rhythm Gastrointestinal: Normal bowel sounds, Soft and benign Musculoskeletal: Other (left knee pain, worse ROM, moderate generalized weakness) Integumentary: No rashes, No breakdown Neurological: Normal speech, Normal strength at 5/5 x4 extr, Other (left arm numbness, NIHSS 1) - Studies Laboratory Data (last 24 hrs) 08/20/23 08/20/23 08/20/23 05:48 05:48 05:48 WBC 13.30 H Hgb 12.5 Hct 38.1 Plt Count 233 PT 13.0 H INR 1.19 APTT 33.9 Sodium 136 Potassium 2.6 L* BUN 4 L Creatinine 0.82 Glucose 107 H Magnesium 1.1 L <Janice Crump - Last Filed: 08/20/23 08:49> - Studies Laboratory Data (last 24 hrs) 08/20/23 08/20/23 08/20/23 05:48 05:48 05:48 WBC 13.30 H Hgb 12.5 Hct 38.1 Plt Count 233 PT 13.0 H INR 1.19 APTT 33.9 Sodium 136 Potassium 2.6 L* BUN 4 L Creatinine 0.82 Glucose 107 H Magnesium 1.1 L <Madhu Clayton - Last Filed: 08/20/23 18:33> Assessment and Plan - Plan Assessment plan Left-sided paresthesia Near syncope History of falls Deconditioning with generalized weakness Neurology consult, telemetry, Speech consult, PT eval, Fall precautions, NIH stroke scale, CT of the brain. Neck, head CTA no evidence of stenosis, occlusion, aneurysm, and intra cranial arterial circulation Chest x-ray no acute abnormality Lipid panel presents to the emergency room with complaints of numbness. She reports history of multiple sclerosis, reports history of a brain tumor treated with radiation at [facility]. She reports left-sided numbness that started at 2 AM, reports taking promethazine at that time. She reports nothing makes symptoms better, nothing makes symptoms worse. Plan to admit for paresthesia, hypokalemia, hypocalcemia, hypomagnesia, with Dr. Sánchez neurology to consult. NIH stroke scale 1 with paresthesia to the left side of the body. B12 normal 861 TSH normal 1.930 web services professional consult evaluate for inpatient rehab History brain tumor with radiation, History brain aneurysm with rupture History of MS Fall precautions Leukocytosis 13.30 Mild left shift 9.2 Trend electrolytes UA Hypokalemia Potassium 2.6 Trend electrolytes replace as needed Hypocalcemia 7.8 Trend calcium replace as needed Hypomagnesia Magnesium 1.1 Trend electrolytes replace as needed History hernia, History cancer, prolapsed bladder Degenerative joint disease Chronic back pain Med reconciliation resume appropriate medications Sees pain management Obesity Diabetes type 2 Educate on diabetic diet Accu-Cheks, sliding scale, A1c in the a.m. Tobacco use COPD stable Resume home meds Full code DVT Lovenox Diet cardiac , Discharge Plan: Other (rehab) Plan to discharge in: 48 Hours - Advance Directives Does patient have a Living Will: No Does patient have a Durable POA for Healthcare: No - Code Status/Comfort Care Code Status: Full Code Critical Care: No Time Spent Managing Pts Care (In Minutes): 55 <Janice Crump - Last Filed: 08/20/23 08:49> - Plan Pt seen and examined. I agree with the note by the PILATES INSTRUCTOR. Pt is a 53yo male with past medical history of brain tumor, brain aneurysm, hernia, cancer, multiple sclerosis, and prolapsed bladder who presents to the ER with left sided numbness and electrolyte abnormalities. The symptom started last night and progressively worsened. On admission, lab studies show WBC 13.3, Hgb 12.2, K 3.2, Mag 1.6 and Cr 0.84. CTA head, CTA head and neck are unremarkable. X-ray of left knee is negative for fracture. At bedside, pt is in NAD. A/P: Left sided numbness: CT head is unremarkable. CTA head and neck are unremarkable. Will follow up Echo and MRI to r/o CVA. Allow permissive htn. Continue aspirin and statin. Consulted Dr. Sánchez. Hypokalemia: K is 3.2 <- 2.6. Will replete with KCL and monitor Hypomagnesemia: mag is 1.6 <- 1.1. Will replete and monitor Leukocytosis: WBC is 13.3. Likely reactive. Will r/o Infection. Hypocalcemia: calcium is 7.8 and Albumin is 2.6. Corrected calcium will be about 8.5. Will give calcium gluconate, check Vitamin D, ionized calcium and albumin level. It is likely etiology of involuntary muscle movement on her hands Will continue home med for other chronic medical problems Code: full <Madhu Clayton - Last Filed: 08/20/23 18:33>
[2023-08-20] MEDS ORDERED: NA CHLORIDE 0.9% 1,000 ML IV SCH (08:00)
[2023-08-20] MEDS ORDERED: GLUCAGON 1 MG/VIAL IM PRN (08:16)
[2023-08-20] MEDS ORDERED: D50W 25 GM/50 ML SYRINGE IV PRN (08:16)
[2023-08-20 08:31] LABS: Thyroid Stimulating Hormone 1.93 uIU/mL (0.358-3.740)
[2023-08-20] MEDS ORDERED: D10W 125 ML IV PRN (08:31)
[2023-08-20] MEDS: ASPIRIN EC 81 MG TAB PO SCH (09:00)
[2023-08-20 09:32] LABS: Platelet Estimate ADEQ; White Blood Cell Scan OK (OK)
[2023-08-20 09:33] LABS: Anisocytosis 1+; Blood Morphology Comment NOTED (NOT SEEN)
[2023-08-20] MEDS ORDERED: NA CHLORIDE 0.9% 1,000 ML ONE (09:41)
[2023-08-20] MEDS ORDERED: ASPIRIN 81 MG CHEWABLE TABLET ONE (09:41)
--- NOTE | 2023-08-20 10:15 | RAD REPORT ---
EXAM DESCRIPTION: RAD - Knee Left 2 View - 08/20/2023 9:52 am CLINICAL HISTORY: left knee pain COMPARISON: No comparisons FINDINGS: No fracture, dislocation or joint effusion. Mild osteopenia.
--- NOTE | 2023-08-20 11:24 | RAD REPORT ---
EXAM DESCRIPTION: XR Chest, 1 View CLINICAL HISTORY: The patient is 53 years old and is Female; stroke PRIORITY Bed Name: 6 TECHNIQUE: Frontal view of the chest. COMPARISON: No relevant prior studies available. FINDINGS: LUNGS: Evaluation of lung parenchyma degraded secondary to patient body habitus and decr eased penetration. Allowing for this, no focal consolidation. PLEURAL SPACE: No appreciable pleural effusion or pneumothorax. MEDIASTINUM: Prominence of the cardiomediastinal silhouette, likely exaggerated secondary to portab le technique, lordotic positioning, and patient body habitus. BONES/JOINTS: No acute osseous abnormality. IMPRESSION: Evaluation of lung parenchyma degraded secondary to patient body habitus and decreased p enetration. Allowing for this, no acute chest findings. Electronically signed by: Troy Rodriguez MD 08/20/2023 06:28 AM IN HOME TUTOR Due to temporary technical issues with the PACS/Fluency reporting system, reports are being signed by the in house radiologist without review as a courtesy to ensure prompt reporting. The interpreting r adiologist is fully responsible for the content of the report.
--- NOTE | 2023-08-20 11:28 | RAD REPORT ---
EXAM DESCRIPTION: Head angio (accession [id number]), Neck Angio (accession [id number]) CLINICAL HISTORY: 53 years, Female, STROKE ALERT COMPARISON: None. TECHNIQUE: Axial CTA images of the head and neck obtained following the uncomplicated intravenous ad ministration of iodinated contrast. 3-D/MIP reformatted images available. This exam was performed acc ording to our departmental dose-optimization program, which includes automated exposure control, adju stment of the mA and/or kV according to patient size and/or use of iterative reconstruction technique . FINDINGS: CTA head: In the anterior circulation, the intracranial internal carotid arteries have normal course and calibe r. The internal carotid arteries bifurcate into widely patent A1 and M1 segments of the anterior and middle cerebral arteries respectively. No evidence of flow-limiting stenosis, aneurysm, occlusion, or dissection in the anterior circulation. The anterior communicating artery is patent. In the posterior circulation, the intracranial vertebral arteries combine to form a widely patent bas ilar artery. The basilar artery bifurcates into widely patent P1 segments of the posterior cerebral a rtery. No evidence of stenosis, aneurysm, occlusion, or dissection in the posterior circulation. No definite acute intracranial abnormality identified. No acute abnormality of the osseous calvarium. Paranasal sinuses and mastoid air cells are well aerated. CTA NECK: The visualized portions of the great vessels are widely patent. The right common carotid artery is widely patent and bifurcates into widely patent internal and exter nal carotid arteries. 0% stenosis by NASCET criteria. No evidence of occlusion or dissection. The left common carotid artery is widely patent and bifurcates into widely patent internal and criminal psychologist al carotid arteries. 0% stenosis by NASCET criteria. No evidence of occlusion or dissection. The cervical vertebral arteries are widely patent throughout their course. No evidence of occlusion, stenosis, or dissection. No definite acute abnormalities in the neck soft tissues. No apical pneumothorax. No acute osseous ab normalities. Multilevel degenerative change of the spine. IMPRESSION: 1. No evidence of stenosis, occlusion, or aneurysm in the intracranial arterial circul ation. 2. No evidence of stenosis/occlusion involving the cervical carotid or vertebral arteries. Electronically signed by: Shay Little DO 08/20/2023 06:26 AM COMMERCIAL CREDIT ANALYST M Due to temporary technical issues with the PACS/Fluency reporting system, reports are being signed by the in house radiologist without review as a courtesy to ensure prompt reporting. The interpreting r adiologist is fully responsible for the content of the report.
[2023-08-20 11:30] LABS: Magnesium 1.6 mg/dL (1.6-2.4); Potassium 3.2 mEq/L (3.5-5.1)
[2023-08-20] MEDS: INSULIN REGULAR (HUMAN) 100 UNIT/ML SQ SCH ×3 (11:30→21:00)
--- NOTE | 2023-08-20 11:42 | RAD REPORT ---
EXAM DESCRIPTION: Head angio (accession [id number]), Neck Angio (accession [id number]) CLINICAL HISTORY: 53 years, Female, STROKE ALERT COMPARISON: None. TECHNIQUE: Axial CTA images of the head and neck obtained following the uncomplicated intravenous ad ministration of iodinated contrast. 3-D/MIP reformatted images available. This exam was performed acc ording to our departmental dose-optimization program, which includes automated exposure control, adju stment of the mA and/or kV according to patient size and/or use of iterative reconstruction technique . FINDINGS: CTA head: In the anterior circulation, the intracranial internal carotid arteries have normal course and calibe r. The internal carotid arteries bifurcate into widely patent A1 and M1 segments of the anterior and middle cerebral arteries respectively. No evidence of flow-limiting stenosis, aneurysm, occlusion, or dissection in the anterior circulation. The anterior communicating artery is patent. In the posterior circulation, the intracranial vertebral arteries combine to form a widely patent bas ilar artery. The basilar artery bifurcates into widely patent P1 segments of the posterior cerebral a rtery. No evidence of stenosis, aneurysm, occlusion, or dissection in the posterior circulation. No definite acute intracranial abnormality identified. No acute abnormality of the osseous calvarium. Paranasal sinuses and mastoid air cells are well aerated. CTA NECK: The visualized portions of the great vessels are widely patent. The right common carotid artery is widely patent and bifurcates into widely patent internal and exter nal carotid arteries. 0% stenosis by NASCET criteria. No evidence of occlusion or dissection. The left common carotid artery is widely patent and bifurcates into widely patent internal and production or plant engineer al carotid arteries. 0% stenosis by NASCET criteria. No evidence of occlusion or dissection. The cervical vertebral arteries are widely patent throughout their course. No evidence of occlusion, stenosis, or dissection. No definite acute abnormalities in the neck soft tissues. No apical pneumothorax. No acute osseous ab normalities. Multilevel degenerative change of the spine. IMPRESSION: 1. No evidence of stenosis, occlusion, or aneurysm in the intracranial arterial circul ation. 2. No evidence of stenosis/occlusion involving the cervical carotid or vertebral arteries. Electronically signed by: Shay Little DO 08/20/2023 06:26 AM SENIOR GL ACCOUNTANT M Due to temporary technical issues with the PACS/Fluency reporting system, reports are being signed by the in house radiologist without review as a courtesy to ensure prompt reporting. The interpreting r adiologist is fully responsible for the content of the report.
--- NOTE | 2023-08-20 11:44 | RAD REPORT ---
EXAM DESCRIPTION: ADDENDUM #1 Addendum: Dr. Rodriguez discussed these findings regarding no acute intracranial abnormality with Jb Panedy via t elephone at approximately 07:30 hours EST on 08/20/2023. Electronically signed by: Troy Rodriguez MD 08/20/2023 07:58 AM SUPERVISOR BILLPOSTING End of Addendum TECHNIQUE: CT Head Without Intravenous Contrast CLINICAL HISTORY: The patient is 53 years old and is Female; STROKE ALERT Bed Name: 6 TECHNIQUE: Axial computed tomography images of the head/brain without intravenous contrast. Sagitt al and coronal reformatted images were created and reviewed. This CT exam was performed using one o r more of the following dose reduction techniques: automated exposure control, adjustment of the mA and/or kV according to patient size, and/or use of iterative reconstruction technique. COMPARISON: No relevant prior studies available. FINDINGS: BRAIN: No extra-axial fluid collection. No intracranial hemorrhage. No transtentorial herniation. No focal mathew-white matter differentiation abnormality. MIDLINE SHIFT: No midline shift. VENTRICLES: Unremarkable No ventriculomegaly. BONES/JOINTS: No fracture of the calvarium or visualized facial bones. SOFT TISSUES: Unremarkable SINUSES: No masses, bony erosion or evidence of acute sinusitis. MASTOID AIR CELLS: Unremarkable as visualized. No mastoid effusion. SELLA: "Empty sella" appearance of the sella turcica with thinning of the pituitary parenchyma, unc hanged from reference. IMPRESSION: 1. No acute intracranial abnormality. 2. "Empty sella" appearance of the sella turcica with thinning of the pituitary parenchyma, unchang ed from reference. Correlation for clinical evidence of idiopathic intracranial hypertension recommen ded. Electronically signed by: Troy Rodriguez MD 08/20/2023 06:26 AM SUPERVISOR BILLPOSTING Due to temporary technical issues with the PACS/Fluency reporting system, reports are being signed by the in house radiologist without review as a courtesy to ensure prompt reporting. The interpreting r adiologist is fully responsible for the content of the report.
--- NOTE | 2023-08-20 13:34 | ECHO ---
HEIGHT: ft in WEIGHT: lb oz DATE OF STUDY: 08/20/[address]: Janice Crump CONSERVATION SCIENCE TEACHER-Sandee 2-DIMENSIONAL: YES M.MODE: YES DOPPLER: YES COLOR FLOW: YES TDS: PORTABLE: YES DEFINITY: BUBBLE STUDY: DIAGNOSIS: DIZZINESS CARDIAC HISTORY: CATHERIZATION: SURGERY: PROSTHETIC VALVE: PACEMAKER: MEASUREMENTS (cm) DIASTOLIC (NORMALS) SYSTOLIC (NORMALS) IVSd 0.8 (0.6-1.2) LA Diam (1.9-4.0) LVEF 58% LVIDd 4.8 (3.5-5.7) LVIDs 3.3 (2.0-3.5) %FS 31% LVPWd 1.1 (0.6-1.2) Ao Diam 3.6 (2.0-3.7) 2 DIMENSIONAL ASSESSMENT: RIGHT ATRIUM: NORMAL LEFT ATRIUM: NORMAL RIGHT VENTRICLE: NORMAL LEFT VENTRICLE: NORMAL TRICUSPID VALVE: MILD TRICUSPID REGURGITATION MITRAL VALVE: NORMAL PULMONIC VALVE: MILD PULMONIC INSUFFICIENCY AORTIC VALVE: NORMAL PERICARDIAL EFFUSION: NONE AORTIC ROOT: NORMAL LEFT VENTRICULAR WALL MOTION: NORMAL DOPPLER/COLOR FLOW: SEE BELOW COMMENTS: 1. NORMAL LEFT VENTRICULAR EJECTION FRACTION 55-60% WITH NORMAL WALL MOTION 2. GRADE I DIASTOLIC DYSFUNCTION 3. MILD TRICUSPID REGURGITATION TECHNOLOGIST: JARRETT KC
[2023-08-20] MEDS: ONDANSETRON 4 MG/2 ML VIAL IV PRN (14:09)
[2023-08-20 15:58] VITALS: BMI 40.6
--- NOTE | 2023-08-20 16:51 | EKG ---
Test Date: 2023-08-20 Test Time: 05:44:08 Party Plan Sales Agent: GEREMIAS MEASUREMENT RESULTS: Intervals: Rate: 82 MO: 172 QRSD: 84 QT: 380 QTc: 443 [place]: P: 27 MO: 172 QRS: 16 T: 57 INTERPRETIVE STATEMENTS: Normal sinus rhythm Nonspecific T wave abnormality Abnormal ECG Compared to ECG 08/03/2022 21:09:46 T-wave abnormality now present Electronically Signed On 08-20-23 16:50:36 COMPOSITOR APPRENTICE by Beau Graf
[2023-08-20] MEDS ORDERED: [UNRECOGNIZED DRUG - OTHER] PO PRN (17:05)
[2023-08-20] MEDS ORDERED: ACETAMINOPHEN PO PRN (17:05)
[2023-08-20] MEDS ORDERED: PHENAZOPYRIDINE HCL 100 MG PO PRN (17:05)
[2023-08-20] MEDS ORDERED: HYDROCODONE PO PRN (17:05)
--- NOTE | 2023-08-20 17:25 | RAD REPORT ---
EXAM DESCRIPTION: RAD - Barium Swallow Modified - 08/20/2023 1:41 pm CLINICAL HISTORY: Dysphagia COMPARISON: None. TECHNIQUE: The patient was given liquid, semi-solid and solid forms of barium. Lateral view fluorosc opic imaging was performed in conjunction with speech pathology service. Fluoro time: 2:02 minutes. FINDINGS: No wade aspiration. No evidence of deep laryngeal penetration. Slow mastication and delay in initiation of swallowing, and premature spillage into the vallecula noted. IMPRESSION: No evidence of laryngeal penetration or wade aspiration. Please refer to speech patholo gy report for additional detail.
[2023-08-20] MEDS ORDERED: PHENAZOPYRIDINE 100MG TAB PO PRN (17:36)
[2023-08-20] MEDS: HYDROCODONE/APAP 5/325 MG TAB PO PRN (17:39)
[2023-08-20] MEDS: PROMETHAZINE 25 MG TABLET PO PRN (17:40)
[2023-08-20] MEDS: carvediloL 25 MG TAB PO SCH (20:03)
[2023-08-20 20:28] LABS: Specific Gravity 1.009 (1.005-1.030); Urine Bilirubin NEGATIVE (Negative); Urine Blood Negative (Negative); Urine Clarity Clear (Clear); Urine Color Colorless (Yellow); Urine Glucose NEGATIVE (Negative); Urine Protein NEGATIVE (Negative); Urine Urobilinogen Normal (Normal); Urine pH 7.5 (5.0-7.0)
[2023-08-20] MEDS ORDERED: ATORVASTATIN 40 MG TAB PO SCH (21:00)
[2023-08-20] MEDS ORDERED: GABAPENTIN 300 MG CAP PO SCH (21:00)
--- NOTE | 2023-08-20 21:01 | RAD REPORT ---
EXAM DESCRIPTION: RADChest Single View08/20/2023 4:20 pm CLINICAL HISTORY: r/o pneumonia COMPARISON: Chest Single View dated 08/20/2023; Chest Single View dated 08/03/2022; Chest Single View d ated 12/29/2017; Chest Single View dated 09/29/2016 TECHNIQUE: Portable AP view of the chest. FINDINGS: The lungs are clear. No pneumothorax or effusion. The cardiomediastinal contours are unre markable. IMPRESSION: No acute cardiopulmonary process.
[2023-08-20] MEDS: GABAPENTIN 300 MG CAP PO SCH (21:35)
[2023-08-21] MEDS: HYDROCODONE/APAP 5/325 MG TAB PO PRN ×2 (00:03→07:59)
[2023-08-21] MEDS: ONDANSETRON 4 MG/2 ML VIAL IV PRN ×2 (01:42→08:34)
[2023-08-21 07:05] LABS: Absolute Lymphocytes (CBC) 3.6 K/uL (0.7-4.9); Hematocrit 33.8 % (36.0-45.0); Lymphocytes % 35.9 % (15.3-44.8); MCV 73.3 fL (80-100); MPV 8.3 fL (7.6-11.3); Platelets 186 thou/uL (152-406); RBC Red Blood Cell Count 4.61 M/uL (3.86-4.86)
[2023-08-21 07:20] LABS: Magnesium 1.6 mg/dL (1.6-2.4)
[2023-08-21] MEDS: INSULIN REGULAR (HUMAN) 100 UNIT/ML SQ SCH ×2 (07:30→11:30)
[2023-08-21] MEDS ORDERED: MAGNESIUM SULFATE 1 gm IVPB 1 GM/100 ML BAG IV ONE (07:30)
[2023-08-21] MEDS: PANTOPRAZOLE 40MG TABLET PO SCH ×2 (07:30→07:58)
[2023-08-21] MEDS: carvediloL 25 MG TAB PO SCH (07:57)
[2023-08-21] MEDS: GABAPENTIN 300 MG CAP PO SCH (07:59)
[2023-08-21] MEDS: ASPIRIN EC 81 MG TAB PO SCH (07:59)
[2023-08-21] MEDS ORDERED: HOME MED 1 EA UNK (Esomeprazole Mag Trihydrate [Nexium] 40 MG Capsule.Dr) PO SCH (08:00)
[2023-08-21] MEDS ORDERED: CALCIUM GLUCONATE 1 GM IVPB 1 GM/50 ML BAG IV ONE (08:09)
[2023-08-21] MEDS ORDERED: POTASSIUM 25 MEQ EFFERV TAB PO ONE ×3 (08:09→16:46)
[2023-08-21] MEDS ORDERED: HYDRALAZINE HCL 20 MG/ML VIAL IV PRN (08:51)
--- NOTE | 2023-08-21 08:56 | P.PN ---
Subjective Date of Service: 08/21/23 Chief Complaint: Paresthesia no reported pain, shortenss of breath, reports L) numbness improved - Physical Exam General: Alert, In no apparent distress, Oriented x3, Obese HEENT: Atraumatic, Normocephalic, PERRLA Neck: Supple, 2+ carotid pulse no bruit, JVD not distended Respiratory: Clear to auscultation bilaterally, Normal air movement Cardiovascular: Normal pulses, Regular rate/rhythm Gastrointestinal: Normal bowel sounds, Soft and benign Musculoskeletal: Other (left knee pain, worse ROM, moderate generalized weakness) Integumentary: No rashes, No breakdown Neurological: Normal speech, Normal strength at 5/5 x4 extr, Other (left arm numbness, NIHSS 1) Review of Systems per HPI Physical Examination - Vital Signs Temperature: 97.6 F Blood Pressure: 175/112 Pulse: 71 Respirations: 18 Pulse Ox (%): 96 - Studies Laboratory Data (last 24 hrs) 08/20/23 05:48 WBC 13.30 H Hgb 12.5 Hct 38.1 Plt Count 233 Assessment And Plan - Plan Assessment plan Left-sided paresthesia Near syncope History of falls Deconditioning with generalized weakness Neurology consult, telemetry, Speech consult-diet be downgraded to minced and moist along with thin liquids. PT eval, Fall precautions, NIH stroke scale, CT of the brain. Neck, head CTA no evidence of stenosis, occlusion, aneurysm, and intra cranial arterial circulation Chest x-ray no acute abnormality Left knee pain, L knee xray FINDINGS: No fracture, dislocation or joint effusion. Mild osteopenia. Lipid panel-normal presents to the emergency room with complaints of numbness. She reports history of multiple sclerosis, reports history of a brain tumor treated with radiation at [facility]. She reports left-sided numbness that started at 2 AM, reports taking promethazine at that time. She reports nothing makes symptoms better, nothing makes symptoms worse. Plan to admit for paresthesia, hypokalemia, hypocalcemia, hypomagnesia, with Dr. Sánchez neurology to consult. NIH stroke scale 1 with paresthesia to the left side of the body. B12 normal 861 TSH normal 1.930 veterans services specialist consult evaluate for inpatient rehab History brain tumor with radiation, History brain aneurysm with rupture History of MS Fall precautions Leukocytosis-improved 13.30->10.00 Mild left shift 9.2 Trend electrolytes UA-normal Hypokalemia Potassium 2.6-.3.0 Trend electrolytes replace as needed Hypocalcemia 7.8 Trend calcium replace as needed Hypomagnesia Magnesium 1.1 Trend electrolytes replace as needed History hernia, History cancer, prolapsed bladder Degenerative joint disease Chronic back pain Med reconciliation resume appropriate medications Sees pain management Obesity Diabetes type 2 Educate on diabetic diet Accu-Cheks, sliding scale, A1c in the a.m. HTN essential, prn antihypertensives Tobacco use COPD stable Resume home meds Full code DVT Lovenox Diet cardiac , - Code Status/Comfort Care Code Status: Full Code Critical Care: No Time Spent Managing PTS Care (In Minutes): 35
[2023-08-21] MEDS ORDERED: ATORVASTATIN 10 MG TAB PO SCH (09:00)
[2023-08-21] MEDS ORDERED: PANTOPRAZOLE 40MG TABLET PO SCH (09:00)
[2023-08-21] MEDS ORDERED: MONTELUKAST 10 MG TAB PO SCH ×2 (09:00→21:00)
[2023-08-21] MEDS: PROMETHAZINE 25 MG TABLET PO PRN (10:31)
[2023-08-21 14:56] VITALS: O2SAT 98
--- NOTE | 2023-08-21 15:16 | P.DS ---
Admission Date: 08/20/23 Discharge Date: 08/21/23 Disposition: ROUTINE DISCHARGE Reason for Admission: Paresthesia Brief History of Present Illness: 53-year-old female with a past medical history of brain tumor, brain aneurysm, hernia, cancer, multiple sclerosis, prolapsed bladder, presents to the emergency room with complaints of numbness. She reports history of multiple sclerosis, reports history of a brain tumor treated with radiation at [facility] (formerly [facility] She reports left-sided numbness that started at 2 AM, reports taking promethazine at that time. She reports nothing makes symptoms better, nothing makes symptoms worse. Plan to admit for paresthesia, hypokalemia, hypocalcemia, hypomagnesia, with Dr. Sánchez neurology to consult. NIH stroke scale 1 with paresthesia to the left side of the body. - Physical Exam General: Alert, In no apparent distress, Oriented x3, Obese HEENT: Atraumatic, Normocephalic, PERRLA Neck: Supple, 2+ carotid pulse no bruit, JVD not distended Respiratory: Clear to auscultation bilaterally, Normal air movement Cardiovascular: Normal pulses, Regular rate/rhythm Gastrointestinal: Normal bowel sounds, Soft and benign Musculoskeletal: Other (left knee pain, worse ROM, moderate generalized weakness) Integumentary: No rashes, No breakdown Neurological: Normal speech, Normal strength at 5/5 x4 extr, Hospital Course: 53-year-old female patient presented with left-sided numbness. Was noted to have hypokalemia, hypocalcemia. Was treated with PT evaluation, electrolyte replacement, IV fluids. Condition improved with electrolyte replacement, Patient is requesting to discharge home. Stable for discharge home with follow- up appointment with primary care physician PROBLEM: Multiple sclerosis History of brain tumor Deconditioning History of falls Left-sided numbness secondary to electrolyte imbalance Left knee pain Hypokalemia Hypocalcemia Hypomagnesia Electrolytes were replaced, Echocardiogram 1. NORMAL LEFT VENTRICULAR EJECTION FRACTION 55-60% WITH NORMAL WALL MOTION 2. GRADE I DIASTOLIC DYSFUNCTION 3. MILD TRICUSPID REGURGITATION CT of the head and neck IMPRESSION: 1. No evidence of stenosis, occlusion, or aneurysm in the intracranial arterial circulation. 2. No evidence of stenosis/occlusion involving the cervical carotid or vertebral arteries. IMPRESSION: 1. No acute intracranial abnormality.2. "Empty sella" appearance of the sella turcica with thinning of the pituitary parenchyma, unchanged from reference. Correlation for clinical evidence of idiopathic intracranial hypertension recommended Left knee x-ray was unremarkable Modified barium swallow study FINDINGS: No wade aspiration. No evidence of deep laryngeal penetration. Slow mastication and delay in initiation of swallowing, and premature spillage into the vallecula noted. IMPRESSION: No evidence of laryngeal penetration or wade aspiration. Please refer to speech pathology report for additional detail. Continue home medicines as previously prescribed GOAL: Clear understanding of disease process Follow-up with neurology outpatient for MS, history of brain tumor INSTRUCTIONS: Physician Discharge Instructions: -DC IV and DC home -Follow-up with PCP in 1 to 2 weeks -Please call Dr. Taylor at [phone] if any questions regarding hospital stay -Please call nursing station at [phone] if any nursing or medication questions -Return to the emergency room if symptoms worsen Diet: ADA, low sodium Activity: Fall precautions DME: Patient has wheelchair at home, shower chair, transfer bench Date Ordered: Name of Company: [employer] Services Needed: None Date or Referral: referral to [facility]. [facility] 2. [facility] 3. [facility]. IMMUNIZATION Influenza Vaccine Indicated: Influenza Vaccine Given: Date Given: Pneumonia Vaccine Indicated: Pneumonia Vaccine Given: Date Given: Vital Signs/Physical Exam: Temp Pulse Resp BP Pulse Ox 97.2 F 75 18 167/96 H 98 08/21/23 12:00 08/21/23 12:00 08/21/23 12:00 08/21/23 12:00 08/21/23 12:00 Laboratory Data at Discharge: WBC 10.00 thou/uL (4.3-10.9) 08/21/23 06:53 Hgb 11.5 g/dL (12.0-15.0) L 08/21/23 06:53 Hct 33.8 % (36.0-45.0) L 08/21/23 06:53 Plt Count 186 thou/uL (152-406) 08/21/23 06:53 PT 13.0 SECONDS (9.5-12.5) H 08/20/23 05:48 INR 1.19 08/20/23 05:48 APTT 33.9 SECONDS (24.3-36.9) 08/20/23 05:48 Sodium 136 mEq/L (136-145) 08/21/23 06:53 Potassium 3.0 mEq/L (3.5-5.1) L 08/21/23 06:53 BUN 4 mg/dL (7-18) L 08/21/23 06:53 Creatinine 0.68 mg/dL (0.55-1.02) 08/21/23 06:53 Glucose 106 mg/dL (74-106) 08/21/23 06:53 Magnesium 1.6 mg/dL (1.6-2.4) 08/21/23 06:53 Triglycerides 113 mg/dL (<150) 08/21/23 06:53 Cholesterol 94 mg/dL (<200) 08/21/23 06:53 HDL Cholesterol 50 mg/dL (40-60) 08/21/23 06:53 Cholesterol/HDL Ratio 1.88 08/21/23 06:53 Home Medications: Esomeprazole Mag Trihydrate [Nexium] 20 mg PO BREAKFAST 04/03/18 Promethazine HCl 1 tab PO Q12HR PRN 04/03/18 Atorvastatin Calcium 10 mg PO DAILY 08/04/22 Carvedilol [Coreg] 25 mg PO BID 08/04/22 Gabapentin 300 mg PO TID 08/04/22 Montelukast [Singulair*] 10 mg PO DAILY 08/04/22 Ondansetron [Zofran (Odt)*] 4 mg PO Q8H PRN 08/04/22 Pantoprazole [Protonix Tab*] 40 mg PO DAILY 08/04/22 Budesonide/Glycopyr/Formoterol [Breztri Aerosphere Inhaler] 2 puff IH SEECOM 08/21/23 Tizanidine HCl 2 mg PO Q8H 08/21/23 Physician Discharge Instructions: 53-year-old female patient presented with left-sided numbness. Was noted to have hypokalemia, hypocalcemia. Was treated with PT evaluation, electrolyte replacement, IV fluids. Condition improved with electrolyte replacement, Patient is requesting to discharge home. Stable for discharge home with follow- up appointment with primary care physician PROBLEM: Multiple sclerosis History of brain tumor Deconditioning History of falls Left-sided numbness secondary to electrolyte imbalance Left knee pain Hypokalemia Hypocalcemia Hypomagnesia Electrolytes were replaced, Echocardiogram 1. NORMAL LEFT VENTRICULAR EJECTION FRACTION 55-60% WITH NORMAL WALL MOTION 2. GRADE I DIASTOLIC DYSFUNCTION 3. MILD TRICUSPID REGURGITATION CT of the head and neck IMPRESSION: 1. No evidence of stenosis, occlusion, or aneurysm in the intracranial arterial circulation. 2. No evidence of stenosis/occlusion involving the cervical carotid or vertebral arteries. IMPRESSION: 1. No acute intracranial abnormality.2. "Empty sella" appearance of the sella turcica with thinning of the pituitary parenchyma, unchanged from reference. Correlation for clinical evidence of idiopathic intracranial hypertension recommended Left knee x-ray was unremarkable Modified barium swallow study FINDINGS: No wade aspiration. No evidence of deep laryngeal penetration. Slow mastication and delay in initiation of swallowing, and premature spillage into the vallecula noted. IMPRESSION: No evidence of laryngeal penetration or wade aspiration. Please refer to speech pathology report for additional detail. Continue home medicines as previously prescribed GOAL: Clear understanding of disease process Follow-up with neurology outpatient for MS, history of brain tumor INSTRUCTIONS: Physician Discharge Instructions: -DC IV and DC home -Follow-up with PCP in 1 to 2 weeks -Please call Dr. Taylor at [phone] if any questions regarding hospital stay -Please call nursing station at [phone] if any nursing or medication questions -Return to the emergency room if symptoms worsen Diet: ADA, low sodium Activity: Fall precautions DME: Patient has wheelchair at home, shower chair, transfer bench Date Ordered: Name of Company: [employer] Services Needed: None Date or Referral: IMMUNIZATION Influenza Vaccine Indicated: Influenza Vaccine Given: Date Given: Pneumonia Vaccine Indicated: Pneumonia Vaccine Given: Date Given: Diet: AHA Activity: Fall precautions Followup: Wilbur Oliveira DO [Primary Care Provider] - Time spent managing pt's care (in minutes): 55
[2023-08-21 15:38] LABS: Bicarbonate 33 mEq/L (21-32); Potassium 3.1 mEq/L (3.5-5.1); Sodium Level 137 mEq/L (136-145)
[2023-08-21 15:39] LABS: Glomerular Filtration Rate 99 ml/min (=/>90); Glucose Level 104 mg/dL (74-106)
[2023-08-21 15:42] LABS: BUN Blood Urea Nitrogen < 3 mg/dL (7-18)
[2023-08-21] MEDS ORDERED: ENSURE HIGH PROTEIN 237 ML CAN PO ONE (16:44)
[2023-08-21] MEDS ORDERED: SPIRONOLACTONE 25 MG TABLET PO ONE (16:47)
[2023-08-21] MEDS ORDERED: MAGNESIUM CHLORIDE 64 MG TAB PO SCH (17:00)
[2023-08-21 20:05] VITALS: BP 167/86; TEMP 97.1
== END 2023-08-21 16:43 | disposition home health service (06) | DRG 641 ==
LOC: ER 05:20 → ERHOLD 07:32 → 2ND 12:02
PROVIDERS: ADMIT Hospitalist; ATTEND Hospitalist
DX: E87.6 Hypokalemia (principal); Z68.41 Body mass index [BMI] 40.0-44.9, adult; E66.9 Obesity, unspecified; E83.51 Hypocalcemia; E83.42 Hypomagnesemia; E11.9 Type 2 diabetes mellitus without complications; I10 Essential (primary) hypertension; M19.90 Unspecified osteoarthritis, unspecified site; N81.10 Cystocele, unspecified; G89.29 Other chronic pain; M54.9 Dorsalgia, unspecified; M25.562 Pain in left knee; G35 Multiple sclerosis; D72.829 Elevated white blood cell count, unspecified; J44.9 Chronic obstructive pulmonary disease, unspecified; R29.701 NIHSS score 1; Z88.2 Allergy status to sulfonamides; Z88.0 Allergy status to penicillin; Z88.8 Allergy status to other drugs, medicaments and biological substances; Z88.5 Allergy status to narcotic agent; Z79.02 Long term (current) use of antithrombotics/antiplatelets; Z91.81 History of falling; Z79.899 Other long term (current) drug therapy
CPT/HCPCS: 36415; 70450; 70496; 70498; 71045; 74230; 80048; 80061; 81003; 82040; 82306; 82330; 82565; 82607; 82947; 83036; 83735; 84443; 84484; 85025; 85610; 85730; 92610; 92611; 93005; 93306; 96365; 96375; 97116; 97163; 97530; 97542; 99285; J0612; J2405; J3475; J7030; Q0169; Q9967

== ENCOUNTER 2023-11-23 08:28 | Inpatient (IN) | payer OTHER ==
--- OUTSIDE RECORDS SUMMARY | 2023-11-23 08:30 | XMS REPORT | Clinical Summary ---
Author Name Unknown Organization [facility] Address [address] [place] [address] Care Team Providers Care Soft Top Installer Name Role Phone iMngo Street MD Primary Care Provider Nomi Olea MD Unavailable [phone] Pedro Comer MD Unavailable Haresh Venegas MD Unavailable Unavailable Magnolia Holden MD Unavailable Prince Abdoul MANAGEMENT PROFESSOR Unavailable [phone] Darnell Wellington MD Unavailable [phone] Jossue Suresh PA Unavailable [phone] MD Unavailable [phone] Margarita Chaves PA Unavailable [phone] Kimber Mendoza MD Unavailable Cherrie Johnson MANAGEMENT PROFESSOR Unavailable [phone] Tigist Morgan MD Unavailable Cleopatra Al MD Unavailable [phone] Allergies Active Allergy Reactions Criticality Noted [...] High 08/20/2021 Per patient throat closes up [place]mers Analogues Other (See Comments) 01/21/20 16 Penicillins [...] diskus inhaler daily as needed. 1 11/23/2016 Active phenazopyridine (PYRIDIUM) 100 mg tablet Take 100 mg by mouth every 6 (six) hours as needed. 0 Active ondansetron (ZOFRAN) 8 mg tablet 2 tablets 3 (three) times a day. 0 09/09/2021 Active zinc (Chelated Zinc) 50 mg tab Take by mouth. 0 Active magnesium oxide-protein complex (Gg-Fakf-Jwzhhmd Complex) 133 mg tablet Take 4 tablets [...] mg tablet Take by mouth. 0 Active Active Problems Problem Noted Date Diagnosed Date Moderate dehydration 08/13/2021 Nausea 08/13/2021 Bronchopneumonia 01/30/2017 Hyposmolality and/or hyponatremia 01/30/2017 Abdominal pain 01/30/2017 Productive cough 01/30/2017 Dysuria 01/30/2017 Tachycardia 01/30/2017 Hypoxia 01/30/2017 assisted current use of opiate analgesic 2016 Post-traumatic stress disorder 11/01/2016 Mild cognitive disorder 11/01/2016 Adjustment disorder with physical complaints 11/2016 Hyponatremia 10/31/2016 Melena 10/31/2016 Endometriosis 10/31/2016 Urinary tract infection 10/31/2016 Colitis 10/31/2016 Chronic pain syndrome 10/31/2016 Tobacco use 10/31/2016 Anemia of chronic disease 10/31/2016 Headache 10/31/2016 Abdominal pain, generalized 04/13/2016 Generalized anxiety disorder 04/13/2016 Surgical History Surgery Date Site/Laterality Comments BREAST RECONSTRUCTION WA ESOPHAGOGASTRODUODENOSCOP Y TRANSORAL DIAGNOSTIC 11/02/2016 Esophagus/N/A Procedure: DIAGNOSTIC UPPER GASTROINTESTINAL ENDOSCOPY; Surgeon: Apoorva Wen MD; Location: MAIN ENDOSCOPY; Service: GASTROENTEROLOGY WA COLONOSCOPY FLX DX W/JEANETTE J SPEC WHEN PFRMD 11/02/2016 N/A Procedure: DIAGNOSTIC FLEXIBLE COLONOSCOPY PROXIMAL TO SPLENIC FLEXURE; Surgeon: Apoorva Wen MD; Location: MAIN ENDOSCOPY; Service: GASTROENTEROLOGY COLONOSCOPY 07/30/1998 - 07/29/1999 EXPLORATORY LAPAROTOMY [id number] HYSTERECTOMY [id number] UPPER GASTROINTESTINAL ENDOSCOPY - 07/29/1999 Medical History Medical History Date Comments Stroke Seizure Myocardial infarction 1997 Hyperlipidemia Irregular heart beat Migraine 1982 Multiple sclerosis 1970 Traumatic brain injury 8388-7765 Allergic rhinitis 0951-5753 Sinusitis 1362-4163 Difficulty talking 2016 Tooth disorder 2012 Swallowing problem 2003 Chronic bronchitis 3905-3405 Asbestosis 4404-7200 Pneumonia 2004 Gastric reflux 1987 Colitis [address] cheikh ve different diagnosis Celiac disease 2006 Malabsorption syndrome 1982 Diverticulitis [id number] Irritable bowel syndrome 1999 Renal stone 1981 History of recurrent urinary tract infection 1987 Urinary incontinence 3710-6068 Sexual dysfunction [id number] Abnormal uterine bleeding un related to menstrual cycle 2789-6990 Polycystic ovarian syndrome 1989 Endometriosis 4159-4450 Dr Nahomi ortiz had traveled to other organs,hips, sp Anemia 2008 Blood transfusion, without r eported diagnosis 1981 Size J, breast total reconst uction Osteoporosis 2009 Osteomyelitis 1994 Breake of wrist had to take antibiotics Anxiety 8870-5795 do not have anxi ety or panic attacks since 2003 Psoriasis 1968-current Endometrial carcinoma Cancer - 1 990's Multiple sclerosis 11/27/[address] Citlali reeves Neurologist in [place] (Pt reported) Family History Medical History Relation Name Comments -Other cancer Father Costa Alegria 1981-? Bone ca ncer patient@[place], [place] Hypertension Father Costa Alegria Melanoma Father Costa Alegria Prostate cancer Father Costa Alegria Sarcoma Father Costa Alegria Bone cancer Skin cancer Father Costa Alegria Colon cancer Maternal Aunt Leeannnn Colon cancer Maternal Grandfather Prashant Yarbrough Graves' disease Maternal Grandfather Prashant Diazp Head [...] Billelissaue Raji Ovarian cancer Paternal Aunt 1 Billelissaue Raji Kidney cancer Paternal Aunt 2 Debbielynn Lung cancer Paternal Grandfather Demar d Mesothelioma Paternal Grandfather Demar d Multiple Myeloma Paternal Grandfather Demar Dec eased 1968 Bile duct cancer Paternal Grandmother Hunt Liver cancer Paternal Grandmother Hunt Stomach cancer Paternal Grandmother Hunt Brain cancer Paternal Uncle Prashant -Unknown cancer Sister [facility] Graves' disease Sister [facility] Uterine cancer Sister [facility] Vaginal cancer Sister [facility] Relation Name Status Comments Father Costa Alegria Maternal Aunt Debbielynn Maternal Grandfather Prashant Diazp Mother Florence Paternal Aunt 1 Billysue Raji Paternal Aunt 2 Debbielynn Paternal Grandfather Demar Paternal Grandmother Hunt Paternal Uncle Prashant Sister [facility] Social History Tobacco Use Types Packs/Day Years [...] CDT Gender Identity Female 09/14/2021 3:07 AM [employer] C[employer]TER Sexual Orientation Straight 09/14/2021 3: 07 AM [employer] Job Start Date Occupation Industry Not on [...] Maintenance Due Date Last Done Comments COVID-19 Vaccine (#1) 01/22/1969 Influenza Vaccine 03/30/2023 Advance Directives Latest Code Status on File Code Status Date Activated Date Inactivated Comments Full Code 08/13/2021 11:31 PM 08/14/2021 11:37 AM Code Status History Code Status Date Activated Date Inactivated Comments Full Code 01/30/2017 9:39 PM 01/31/2017 3:59 PM Full Code 10/31/2016 4:56 AM 11/04/2016 5:01 PM Full Code 04/10/2016 10:29 PM 04/12/2016 5:58 PM Care Teams Soft Top Installer Relationship Specialty Start Date End Date Mingo Street MD [address] [place] [id number] PCP - General 09/29/15 Nomi Olea MD [address] [place] [id number] PCP - External Follow Up A 04/03/14 Pedro Comer MD [id number] [facility] [address] [place] [address] PCP - External Follow Up B 04/20/14 Kimber Mendoza MD [address] [place] [address] PCP - External Follow Up C Internal Medicine 11/08/21 Haresh Venegas MD Nurse Practitioner 10/06/15 Magnolia Holden MD [address] [place] [phone] Physician 10/06/15 Prince Schreiber APRN [address] [place] [address] [id number] Nurse Practitioner 10/06/15 Darnell Wellington MD [address] [place] [phone] Physician 10/06/15 Jossue uSresh PA [address] [place] [address]82 Physician Car Seat Coverer 10/06/[address] MD [address] [place] [address] 11461 Physician 10/06/15 Margarita Chaves PA [address] [place] [phone] Physician Car Seat Coverer 10/06/15 Cherrie Johnson APRN [address] [place] [address] [id number] Nurse Practitioner Cancer Prevention 09/16/21 Tigist Morgan MD [address] [place] [id number] Consulting Physician Dermatology 09/26/21 Cleopatra Al MD [address] [place] [address] [phone] Consulting Physician Gynecological Oncology 12/07/16
[2023-11-23] MEDS ORDERED: PROMETHAZINE INJ 25 MG/ML AMP ONE ×2 (08:39→09:48)
[2023-11-23] MEDS ORDERED: DIPHENHYDRAMINE 50 MG/ML VIAL ONE (08:39)
[2023-11-23 09:36] LABS: ALT/SGPT 31 U/L (13-56); AST/SGOT 16 U/L (15-37); Albumin 3.5 g/dL (3.4-5.0); Albumin/Globulin Ratio 0.7 (1.1-1.8); Alkaline Phosphatase 122 U/L (45-117); Anion Gap 9.1 mEq/L (5.0-15.0); BUN Blood Urea Nitrogen 4 mg/dL (7-18); Bicarbonate 32 mEq/L (21-32); Bilirubin Total 0.6 mg/dL (0.2-1.0); Globulin 4.7 g/dL (2.3-3.5); Glomerular Filtration Rate 84 ml/min (=/>90); Glucose Level 115 mg/dL (74-106); Lipase 22 U/L (13-75); Potassium 3.1 mEq/L (3.5-5.1); Protein, Total 8.2 g/dL (6.4-8.2); Sodium Level 137 mEq/L (136-145)
[2023-11-23 09:39] LABS: Troponin High Sensitivity < 3.0 pg/mL (<58.9)
[2023-11-23 10:12] LABS: Absolute Basophils 0.1 K/uL (0-0.5); Absolute Lymphocytes (CBC) 2.5 K/uL (0.7-4.9); Absolute Monocytes 0.6 K/uL (0.1-1.3); Absolute Neutrophil 7.1 K/uL (1.8-8.0); Basophils % 0.6 % (0-1.3); Eosinophils % 0.1 % (0-4.4); Hematocrit 41.3 % (36.0-45.0); Hemoglobin 13.8 g/dL (12.0-15.0); Lymphocytes % 24.5 % (15.3-44.8); MCH 27.3 pg (27.0-35.0); MCHC 33.4 g/dL (32.0-36.0); MCV 81.8 fL (80-100); MPV 7.8 fL (7.6-11.3); Monocytes % 5.7 % (3.3-12.3); Neutrophils % 69.1 % (41.7-73.7); Nucleated Red Blood Cells % 0.1 % (0-0); Platelets 228 thou/uL (152-406); RBC Red Blood Cell Count 5.04 M/uL (3.86-4.86); Red Cell Distribution Width 18.3 % (12.1-15.2)
--- NOTE | 2023-11-23 10:21 | RAD REPORT ---
EXAM DESCRIPTION: CTAbdomen Pelvis W Contrast - 11/23/2023 10:06 am CLINICAL HISTORY: Abdominal pain. Abd pain;Abdominal distention;Nausea / vomiting COMPARISON: Abdomen Pelvis W Contrast dated 04/03/2018; Abdomen Pelvis W Contrast dated 08/21/2017; Abdomen Pelvis W Contrast dated 09/29/2016 TECHNIQUE: Biphasic CT imaging of the abdomen and pelvis was performed with 100 ml non-ionic IV cont rast. All CT scans are performed using dose optimization technique as appropriate and may include automated exposure control or mA/KV adjustment according to patient size. FINDINGS: The lung bases are clear. The liver, spleen, pancreas, adrenal glands and kidneys are within normal limits. No bowel obstruction, free air, free fluid or abscess. The appendix is normal. No evidence of signi ficant lymphadenopathy. No suspicious bony findings. IMPRESSION: No acute intra-abdominal or pelvic finding.
[2023-11-23] MEDS ORDERED: SODIUM CHLORIDE 0.9% 10ML INJ IV PRN (12:58)
--- NOTE | 2023-11-23 13:24 | ER ---
Nurse's Notes [facility] Name: Lianne Medina Age: 53 yrs Sex: Female : 1970 Arrival Date: 11/23/2023 Time: 08:28 Bed 5 Private MD: Diagnosis: Cyclical vomiting, intractable Presentation: 11/22 08:31 Coronavirus screen: At this time, the client does not indicate any symptoms associated ld1 with coronavirus-19. Ebola Screen: No symptoms or risks identified at this time. Risk Assessment: Do you want to hurt yourself or someone else? Patient reports no desire to harm self or others. 08:31 Method Of Arrival: EMS: [facility] ld1 08:31 Acuity: BRANDEN 3 ld1 08:33 Chief complaint: EMS states: N/V/D and abdominal pain x 2 days. Not tolerating hb meds/fluids. Initial Sepsis Screen: Does the patient meet any 2 criteria? No. Patient's initial sepsis screen is negative. Does the patient have a suspected source of infection? No. Patient's initial sepsis screen is negative. Onset of symptoms was November 22, 2023. Triage Assessment: 08:33 General: Appears in no apparent distress. Behavior is cooperative, anxious, crying. hb Pain: Pain currently is 7 out of 10 on a pain scale. Neuro: Level of Consciousness is awake, alert, obeys commands, Oriented to person, place, time, situation. Cardiovascular: Patient's skin is warm and dry. Respiratory: Respiratory effort is even, unlabored, Respiratory pattern is regular, symmetrical. GI: Reports lower abdominal pain, upper abdominal pain, diarrhea, nausea, vomiting. Historical: - Allergies: 08:31 Celecoxib; ld1 08:31 cyclobenzaprine HCl; ld1 08:31 CYCLOSPORINE; ld1 08:31 divalproex; ld1 08:31 Fentanyl; ld1 08:31 levetiracetam; ld1 08:31 Lorazepam; ld1 08:31 Metoclopramide; ld1 08:31 PENICILLINS; ld1 08:31 Sulfa (Sulfonamide Antibiotics); ld1 08:31 TETRACYCLINES; ld1 08:31 Tizanidine; ld1 08:31 tramadol; ld1 08:36 Toradol; hb 08:36 PENTAZOCINE; hb 08:36 phenytoin; hb 08:36 Prochlorperazine; hb - Home Meds: 08:40 albuterol sulfate 90 mcg/actuation Inhl HFA Aerosol Inhaler [Active]; atorvastatin 10 hb mg oral tablet nightly [Active]; Breztri Aerosphere 160-9-4.8 mcg/actuation inhalation HFA Aerosol Inhaler 2 times per day [Active]; carvedilol 25 mg oral tablet 2 times per day [Active]; dicyclomine 10 mg Oral capsule 3 times per day [Active]; esomeprazole magnesium 20 mg oral capsule,delayed release (e.c.) daily [Active]; fluticasone propionate 50 mcg/actuation intranasal spray, suspension daily [Active]; gabapentin 300 mg oral capsule 3 caps 3 times per day [Active]; hydrocodone-acetaminophen 7.5-325 mg Oral tablet every 8 hours [Active]; ketoconazole 2 % Topical gel twice a day [Active]; linaclotide 72 mcg oral capsule daily [Active]; montelukast 10 mg oral tablet nightly [Active]; Mounjaro 10 mg/0.5 mL subcutaneous Pen Injector every week [Active]; multivitamin oral tablet daily [Active]; nortriptyline 50 mg Oral capsule nightly [Active]; ondansetron 4 mg oral Tablet,disintegrating [Active]; phenazopyridine 100 mg Oral tablet 3 times per day [Active]; promethazine 25 mg Oral tablet [Active]; quetiapine 50 mg oral tablet nightly [Active]; spironolactone 25 mg Oral tablet every 12 hours [Active]; tizanidine 2 mg oral tablet every 8 hours [Active]; - PMHx: 08:31 brain aneurysm; prolapsed bladder; Multiple Sclerosis; Cancer; Hernia; brain tumor x 5; ld1 - Immunization history:: Adult Immunizations up to date. - Infectious Disease History:: Denies. - Social history:: Smoking status: Patient denies any tobacco usage or history of. Screenin:57 [facility] ED Fall Risk Assessment (Adult) History of falling in the last 3 months, ld1 including since admission No falls in past 3 months (0 pts). Abuse screen: Denies threats or abuse. Denies injuries from another. Nutritional screening: No deficits noted. Tuberculosis screening: No symptoms or risk factors identified. Assessment: 08:57 General: Appears in no apparent distress. uncomfortable, Behavior is cooperative, ld1 anxious. Pain: Complains of pain in abdomen Pain does not radiate. Pain currently is 8 out of 10 on a pain scale. Quality of pain is described as throbbing, Pain began suddenly, Is continuous. Neuro: Level of Consciousness is awake, alert, obeys commands, Oriented to person, place, time, situation. Cardiovascular: Capillary refill < 3 seconds Patient's skin is warm and dry. Rhythm is sinus rhythm. Respiratory: Airway is patent Respiratory effort is even, unlabored. GI: Abdomen is round non-distended, Reports nausea, vomiting. : No signs and/or symptoms were reported regarding the genitourinary system. EENT: No signs and/or symptoms were reported regarding the EENT system. Derm: No signs and/or symptoms reported regarding the dermatologic system. Musculoskeletal: No signs and/or symptoms reported regarding the musculoskeletal system. 11:50 Reassessment: Patient appears in no apparent distress at this time. No changes from ld1 previously documented assessment. Patient states symptoms have not improved. 13:00 Reassessment: No changes from previously documented assessment. Patient states symptoms ld1 have not improved. 14:50 Reassessment: No changes from previously documented assessment. Patient states symptoms ld1 have not improved. 16:36 Reassessment: No changes from previously documented assessment. Patient states symptoms ld1 have not improved. Vital Signs: 08:33 BP 154 / 112; Pulse 85; Resp 16; Temp 98.7(O); Pulse Ox 100% on R/A; Weight 94.35 kg; hb Height 5 ft. 1 in. ; Pain 7/10; 08:57 BP 166 / 107; Pulse 89; Resp 18; Pulse Ox 97% on R/A; ld1 11:00 BP 146 / 77; Pulse 80; Resp 18; Pulse Ox 100% on R/A; ld1 14:00 BP 162 / 74; Pulse 89; Resp 18; Pulse Ox 100% on R/A; ld1 16:37 BP 156 / 79; Pulse 84; Resp 18; Pulse Ox 100% on R/A; ld1 08:33 Body Mass Index 39.30 (94.35 kg, 154.94 cm) hb 08:33 Pain Scale: Adult hb ED Course: 08:30 Patient arrived in ED. eb 08:30 Christina Pandey, RN is Primary Nurse. ld1 08:32 Triage completed. ld1 08:33 Arm band placed on. hb 08:35 Roman Montanez MD is Attending Physician. bo1 08:57 Patient has correct armband on for positive identification. Placed in gown. Bed in low ld1 position. Call light in reach. Side rails up X2. chief engineer on. Pulse ox on. NIBP on. Door closed. Noise minimized. Warm blanket given. 08:57 No provider procedures requiring assistance completed. Maintain EMS IV. Dressing ld1 intact. Good blood return noted. Gauge \T\ site: 20G LAC. 09:44 Missed attempt(s): 22 gauge in right antecubital area. Bleeding controlled, band aid [id number] applied, catheter tip intact. 09:51 Lab(s) recollected. Inserted saline lock: 24 gauge in right antecubital area, using bc6 aseptic technique. Blood collected. 10:08 CT Abd/Pelvis - PO and IV Contrast In Process Unspecified. EDMS 13:00 Patient requests pain medication. ld1 13:23 Mingo Ventura MD is Hospitalizing Provider. bo1 14:00 Patient requests pain medication. ld1 15:00 Patient requests pain medication. ld1 15:30 Patient requests pain medication. ld1 16:35 Patient is placed in psych hold. ld1 Administered Medications: 08:54 Drug: Promethazine IVP 25 mg IVP once Route: IVP; Site: left antecubital; ld1 08:55 Drug: diphenhydrAMINE IVP 25 mg IVP once Route: IVP; Site: left antecubital; ld1 09:50 Drug: Promethazine IVP 25 mg IVP once Route: IVP; Site: right antecubital; ld1 Outcome: 13:24 Decision to Hospitalize by Provider. bo1 16:37 Patient left the ED. nj1 Signatures: Dispatcher [employer] EDMS Ruma Roman RN RN Kimber Palacios Christina Pandey, RN RN ld1 Liz Bailon bc6 Deborah Silva RN RN nj1 Bryn Gonzalez jg11 Roman Montanez MD MD bo1 Corrections: (The following items were deleted from the chart) 08:39 08:36 Allergies: Valproic Acid; hb hb
--- NOTE | 2023-11-23 13:24 | EDPHYS ---
Physician Documentation [facility] Name: Lianne Medina Age: 53 yrs Sex: Female : 1970 Arrival Date: 11/23/2023 Time: 08:28 Bed 5 Private MD: ED Physician Roman Montanez HPI: 11/22 13:24 This 53 yrs old Female presents to ER via EMS with complaints of bo1 Nausea/Vomiting/Diarrhea, Abdominal Pain. 13:24 The patient presents to the emergency department with nausea, vomiting. Onset: The bo1 symptoms/episode began/occurred gradually, yesterday. Possible causes: Ozempic. Severity of symptoms: in the emergency department the symptoms are unchanged EMS transport has given IV and PO Zofran w/o effect. Hx of the same since Ozempic use. Historical: - Allergies: 08:31 Celecoxib; ld1 08:31 cyclobenzaprine HCl; ld1 08:31 CYCLOSPORINE; ld1 08:31 divalproex; ld1 08:31 Fentanyl; ld1 08:31 levetiracetam; ld1 08:31 Lorazepam; ld1 08:31 Metoclopramide; ld1 08:31 PENICILLINS; ld1 08:31 Sulfa (Sulfonamide Antibiotics); ld1 08:31 TETRACYCLINES; ld1 08:31 Tizanidine; ld1 08:31 tramadol; ld1 08:36 Toradol; hb 08:36 PENTAZOCINE; hb 08:36 phenytoin; hb 08:36 Prochlorperazine; hb - Home Meds: 08:40 albuterol sulfate 90 mcg/actuation Inhl HFA Aerosol Inhaler [Active]; atorvastatin 10 hb mg oral tablet nightly [Active]; Breztri Aerosphere 160-9-4.8 mcg/actuation inhalation HFA Aerosol Inhaler 2 times per day [Active]; carvedilol 25 mg oral tablet 2 times per day [Active]; dicyclomine 10 mg Oral capsule 3 times per day [Active]; esomeprazole magnesium 20 mg oral capsule,delayed release (e.c.) daily [Active]; fluticasone propionate 50 mcg/actuation intranasal spray, suspension daily [Active]; gabapentin 300 mg oral capsule 3 caps 3 times per day [Active]; hydrocodone-acetaminophen 7.5-325 mg Oral tablet every 8 hours [Active]; ketoconazole 2 % Topical gel twice a day [Active]; linaclotide 72 mcg oral capsule daily [Active]; montelukast 10 mg oral tablet nightly [Active]; Mounjaro 10 mg/0.5 mL subcutaneous Pen Injector every week [Active]; multivitamin oral tablet daily [Active]; nortriptyline 50 mg Oral capsule nightly [Active]; ondansetron 4 mg oral Tablet,disintegrating [Active]; phenazopyridine 100 mg Oral tablet 3 times per day [Active]; promethazine 25 mg Oral tablet [Active]; quetiapine 50 mg oral tablet nightly [Active]; spironolactone 25 mg Oral tablet every 12 hours [Active]; tizanidine 2 mg oral tablet every 8 hours [Active]; - PMHx: 08:31 brain aneurysm; prolapsed bladder; Multiple Sclerosis; Cancer; Hernia; brain tumor x 5; ld1 - Immunization history:: Adult Immunizations up to date. - Infectious Disease History:: Denies. - Social history:: Smoking status: Patient denies any tobacco usage or history of. ROS: 13:30 Abdomen/GI: Positive for nausea and vomiting, abdominal distension, bo1 13:30 All other systems are negative, 13:32 Cardiovascular: Negative for chest pain, bo1 13:32 Respiratory: Negative for shortness of breath, Exam: 13:30 Head/Face: Normocephalic, atraumatic. bo1 13:30 Neck: External neck: is normal, 13:30 Skin: Appearance: normal except for affected area, No diaphoresis. Vital Signs: 08:33 BP 154 / 112; Pulse 85; Resp 16; Temp 98.7(O); Pulse Ox 100% on R/A; Weight 94.35 kg; hb Height 5 ft. 1 in. ; Pain 7/10; 08:57 BP 166 / 107; Pulse 89; Resp 18; Pulse Ox 97% on R/A; ld1 11:00 BP 146 / 77; Pulse 80; Resp 18; Pulse Ox 100% on R/A; ld1 14:00 BP 162 / 74; Pulse 89; Resp 18; Pulse Ox 100% on R/A; ld1 16:37 BP 156 / 79; Pulse 84; Resp 18; Pulse Ox 100% on R/A; ld1 08:33 Body Mass Index 39.30 (94.35 kg, 154.94 cm) hb 08:33 Pain Scale: Adult hb MDM: 08:50 Patient medically screened. bo1 13:31 Differential diagnosis: Gastroparesis, intractable N/V despite meds. bo1 13:32 Consideration of Admission/Observation Patient was admitted/placed on observation. bo1 13:32 Data reviewed: vital signs. bo11/22 08:59 Order name: CBC with Diff; Complete Time: 10:46 bo1 11/22 08:59 Order name: CMP; Complete Time: 09:50 bo11/22 08:59 Order name: Lipase; Complete Time: 09:50 bo1 11/22 08:59 Order name: Troponin HS; Complete Time: 09:50 bo1 11/22 12:58 Order name: Urinalysis w/ reflexes EDMS 11/22 12:58 Order name: CBC with Automated Diff EDMS 11/22 12:58 Order name: CBC with Automated Diff EDMS 11/22 12:58 Order name: CBC with Automated Diff EDMS 11/22 12:58 Order name: Comprehensive Metabolic Panel EDMS 11/22 12:58 Order name: Comprehensive Metabolic Panel EDMS 11/22 12:58 Order name: Comprehensive Metabolic Panel EDMS 11/22 12:58 Order name: Magnesium EDMS 11/22 12:58 Order name: Magnesium EDMS 11/22 12:58 Order name: Magnesium EDMS 11/22 08:59 Order name: CT Abd/Pelvis - PO and IV Contrast; Complete Time: 10:46 bo11/22 08:59 Order name: IV Saline Lock; Complete Time: 09:03 bo1 11/22 08:59 Order name: Labs collected and sent; Complete Time: 09:07 11/22 09:15 Order name: Labs - recollect needed: purple top; Complete Time: 09:51 ld1 Administered Medications: 08:54 Drug: Promethazine IVP 25 mg IVP once Route: IVP; Site: left antecubital; ld1 08:55 Drug: diphenhydrAMINE IVP 25 mg IVP once Route: IVP; Site: left antecubital; ld1 09:50 Drug: Promethazine IVP 25 mg IVP once Route: IVP; Site: right antecubital; ld1 Disposition Summary: 11/23/23 13:24 Hospitalization Ordered Notes: Hospitalization Status: Observation bo1 Provider: Mingo Ventura boDaniel Condition: Fair bo1 Problem: an acute exacerbation bo1 Symptoms: are unchanged bo1 Bed/Room Type: Standard bo1 Location: Telemetry/MedSurg (observation)(11/23/23 16:11) eb Room Assignment: [facility] [place][note 2](11/23/23 16:11) eb Diagnosis - Cyclical vomiting, intractable bo1 Forms: - Medication Reconciliation Form bo1 - SBAR form bo1 - Leadership Thank You Letter bo1 Signatures: Dispatcher [employer] EDMS Ruma Roman RN RN Kimber Palacios Lauren, RN RN ld1 Roman Montanez MD MD bo1 Corrections: (The following items were deleted from the chart) 08:39 08:36 Allergies: Valproic Acid; hb hb 08:59 08:59 Abdomen Pelvis W Con+CT.RAD.BRZ ordered. EDMS EDMS 14:00 13:24 Telemetry/MedSurg (observation) bo1 eb 14:00 13:24 bo1 eb 16:11 14:00 [facility] ER HOLD eb eb 16:11 14:00 ERHOLD- eb eb
[2023-11-23] MEDS: INSULIN REGULAR (HUMAN) 100 UNIT/ML SQ SCH (16:30)
[2023-11-23 18:03] VITALS: BMI 35.9
[2023-11-23] MEDS: MORPHINE 4 MG/ML SYR IM ONE (19:52)
--- NOTE | 2023-11-23 20:40 | P.HP ---
Certification for Inpatient Patient admitted to: Observation Practitioner: I am a practitioner with admitting privileges, knowledge of patient current condition, hospital course, and medical plan of care. Services: Services provided to patient in accordance with Admission requirements found in Title 42 Section 412.3 of the Code of Federal Regulations Patient History Date of Service: 11/23/23 Reason for admission: Intractable nausea and vomiting History of Present Illness: 53-year-old female with a past medical history of HTN, GERD, COPD, irritable bowel syndrome who presented to the ED with complaints of intractable nausea and vomiting x 24 hours. She reports having nausea for the past year since being started on Ozempic. Vomiting started 24 hours ago not resolved despite taking promethazine and Zofran at home. Also Reports feeling "acid reflux flare up" on sunday after eating [employer] which was not relieved by taking protonix at home. Emesis is light green in color. Denies any bloody or dark colored stools. CBC unremarkable. Hypokalemic. CT abdomen pelvis without acute intra-abdominal or pelvic findings. Patient admitted for intractable nausea vomiting. GI consulted. Allergies Penicillins Allergy (Severe, Verified 08/04/22 19:40) anaphalxis cyclobenzaprine HCl [From Flexeril] Allergy (Intermediate, Verified 08/04/22 19:40) sob Sulfa (Sulfonamide Antibiotics) [Sulfa(Sulfonamide Antibiotics)] Allergy (Intermediate, Verified 08/04/22 19:40) anaphalxis tramadol HCl [From Ultram] Allergy (Intermediate, Verified 08/04/22 19:40) hives, sob tetracycline [Tetracycline] Allergy (Mild, Verified 08/04/22 19:40) anaphalyxis celecoxib Allergy (Verified 08/04/22 19:40) Unknown levetiracetam Allergy (Verified 08/04/22 19:40) Unknown lorazepam Allergy (Verified 08/04/22 19:40) Unknown tizanidine Allergy (Verified 08/04/22 19:40) Unknown CYCLOSPORINE Allergy (Mild, Uncoded 08/04/22 19:40) Anaphylaxis divalproex Allergy (Mild, Uncoded 08/04/22 19:40) Unknown METOCLOPRAMIDE Adverse Reaction (Mild, Uncoded 08/04/22 19:40) Unknown Home medications list reviewed: Yes Home Medications: Esomeprazole Mag Trihydrate [Nexium] 20 mg PO BREAKFAST 09/05/18 Promethazine HCl 1 tab PO Q12HR PRN 04/03/18 Atorvastatin Calcium 10 mg PO DAILY 08/04/22 Carvedilol [Coreg] 25 mg PO BID 08/04/22 Gabapentin 300 mg PO TID 08/04/22 Montelukast [Singulair*] 10 mg PO DAILY 08/04/22 Ondansetron [Zofran (Odt)*] 4 mg PO Q8H PRN 08/04/22 Pantoprazole [Protonix Tab*] 40 mg PO DAILY 08/04/22 Budesonide/Glycopyr/Formoterol [Breztri Aerosphere Inhaler] 2 puff IH SEECOM 08/21/23 Lactose-Reduced Food [Ensure High Protein] 237 ml PO TID #30 bottle 08/21/23 Magnesium Chloride [Slow-Mag] 64 mg PO DAILY #15 tab 08/21/23 Potassium Chloride 10 meq PO DAILY #30 tab 08/21/23 Spironolactone [Aldactone*] 25 mg PO BID #60 tab 08/21/23 Tizanidine HCl 2 mg PO Q8H 08/21/23 - Past Medical/Surgical History Has patient received pneumonia vaccine in the past: Yes Diabetic: No -: cancer -: prlapsed bladder -: brain tumor x 5 -: MS -: Multiple abdominal surgeriesendometriosis -: -: Breast reconstruction Psychosocial/ Personal History: Patient is disabled, lives at home with her /daughter. - Family History Father -: Hypertension Mother -: Other (see notes) Notes: thyroid problems - Social History Smoking Status: Never smoker Alcohol use: No CD- Drugs: No Caffeine use: Yes Review of Systems Gastrointestinal: Nausea, Vomiting, Abdominal Pain Physical Examination - Vital Signs Temperature: 97.2 F Blood Pressure: 149/89 Pulse: 84 Respirations: 18 Pulse Ox (%): 96 - Physical Exam General: Alert, Oriented x3, Mild distress HEENT: Atraumatic, Normocephalic Respiratory: Clear to auscultation bilaterally, Normal air movement Cardiovascular: Regular rate/rhythm Gastrointestinal: Normal bowel sounds, Tenderness (Mid abdomen) Integumentary: No rashes Neurological: Normal speech - Studies Laboratory Data (last 24 hrs) 11/23/23 11/23/23 09:50 09:04 WBC 10.20 Hgb 13.8 Hct 41.3 Plt Count 228 Sodium 137 Potassium 3.1 L BUN 4 L Creatinine 0.82 Glucose 115 H Total Bilirubin 0.6 AST 16 ALT 31 Alkaline Phosphatase 122 H Lipase 22 Assessment and Plan - Plan Problem list Intractable nausea and vomiting Hypertension Gastroesophageal reflux disease reported Diabetes mellitus type 2 COPD Chronic back pain Irritable Bowel Syndrome Obesity Intractable nausea and vomiting Gastroesophageal reflux disease Irritable Bowel Syndrome - CT abdomen pelvis "No acute intra-abdominal or pelvic finding." - Received promethazine and Benadryl 50mg without improvement in nausea. Of note, patient reports experiencing severe nausea when started on Ozemic ~1 year ago. She was switched to Mounjaro ~3 months ago, still has been having nausea. - PRN antiemetics - protonix IV - GI consulted. recommendations appreciated. possible EGD 11/23. - IV hydration - electrolyte replacement per protocol Hypertension - continue home meds COPD - continue home meds Chronic Back Pain - PRN pain medication VTE: lovenox GI ppx: protonix Code: full - Advance Directives Does patient have a Living Will: No Does patient have a Durable POA for Healthcare: No
[2023-11-23] MEDS: ONDANSETRON 4 MG/2 ML VIAL IV PRN (22:09)
[2023-11-23] MEDS: PANTOPRAZOLE 40 MG INJ IVP SCH (22:14)
[2023-11-23] MEDS: NA CHLORIDE 0.9% 1,000 ML IV SCH (22:14)
[2023-11-23] MEDS: ENOXAPARIN 40 MG/0.4 ML SQ SCH (22:22)
[2023-11-24] MEDS: PROMETHAZINE INJ 25 MG/ML AMP IV ONE (01:31)
[2023-11-24] MEDS: MORPHINE 4 MG/ML SYR IV PRN (02:24)
[2023-11-24 03:57] LABS: Absolute Basophils 0.1 K/uL (0-0.5); Absolute Lymphocytes (CBC) 2.9 K/uL (0.7-4.9); Absolute Monocytes 0.7 K/uL (0.1-1.3); Absolute Neutrophil 7.2 K/uL (1.8-8.0); Basophils % 0.6 % (0-1.3); Eosinophils % 0.2 % (0-4.4); Hematocrit 37.2 % (36.0-45.0); Hemoglobin 12.5 g/dL (12.0-15.0); Lymphocytes % 26.6 % (15.3-44.8); MCH 27.5 pg (27.0-35.0); MCHC 33.6 g/dL (32.0-36.0); MCV 81.7 fL (80-100); MPV 7.5 fL (7.6-11.3); Monocytes % 6.1 % (3.3-12.3); Neutrophils % 66.5 % (41.7-73.7); Nucleated Red Blood Cells % 0.1 % (0-0); Platelets 233 thou/uL (152-406); RBC Red Blood Cell Count 4.56 M/uL (3.86-4.86); Red Cell Distribution Width 18.6 % (12.1-15.2)
[2023-11-24 04:06] LABS: PT Prothrombin Time 12.3 SECONDS (9.5-12.5); Protime INR 1.12
[2023-11-24 04:26] LABS: Albumin 2.9 g/dL (3.4-5.0); Albumin/Globulin Ratio 0.8 (1.1-1.8); Anion Gap 8.9 mEq/L (5.0-15.0); Bilirubin Total 0.6 mg/dL (0.2-1.0); Globulin 3.8 g/dL (2.3-3.5); Magnesium 1.6 mg/dL (1.6-2.4); Potassium 2.9 mEq/L (3.5-5.1); Protein, Total 6.7 g/dL (6.4-8.2)
[2023-11-24] MEDS: KCL 20 MEQ/100 mL IVPB 20 MEQ/100 ML BAG IV SCH ×2 (05:59→23:29)
[2023-11-24] MEDS ORDERED: KCL 20 MEQ/100 mL IVPB 20 MEQ/100 ML BAG IV SCH (06:00)
--- NOTE | 2023-11-24 07:58 | P.PN ---
Date of Service: 11/24/23 Subjective: s/p EGD this morning (11/23) by Dr. Cerna with findings of small hiatal hernia, mild gastritis; 2 biopsies samples obtained. reports some improvement in nausea/vomiting today. Physical Exam General: Alert, Oriented x3. HEENT: Atraumatic, Normocephalic. Sclera nonicteric. Respiratory: Clear to auscultation bilaterally. Normal air movement Cardiovascular: Regular rate/rhythm Gastrointestinal: Normal bowel sounds. Abdominal tenderness. + nausea/vomiting Integumentary: No rashes Neurological: Normal speech Vitals Reviewed Laboratory Data reviewed Assessment and Plan Problem list Intractable nausea and vomiting Hypertension Gastroesophageal reflux disease reported Diabetes mellitus type 2 COPD Chronic back pain Irritable Bowel Syndrome Obesity Hx brain tumor reported radiation therapy in 2014 Intractable nausea and vomiting Gastroesophageal reflux disease Irritable Bowel Syndrome - CT abdomen pelvis "No acute intra-abdominal or pelvic finding." - Received promethazine and Benadryl 50mg in ED without improvement in nausea. She reports experiencing severe nausea x ~1 year since started on Ozemic. She was switched to Mounjaro ~3 months ago, still having nausea. - PRN antiemetics - protonix IV - IV hydration - electrolyte replacement per protocol -Telemetry monitoring - GI consulted, Dr. Cerna - s/p EGD this morning (11/23) w findings of small hiatal hernia, mild gastritis; 2 biopsies samples obtained. - gastric emptying study ordered 11/23, pending. Hypertension - continue home carvedilol -Vital signs every 4 hours COPD - continue home meds once verified Reported diabetes mellitus type 2 -Hold Mounjaro -Hemoglobin A1c 5.4 -Accu-Cheks ACHS Chronic Back Pain - PRN pain medication VTE: lovenox GI ppx: protonix Code: full Dispo: 24-48hrs <Jacqueline Rubio - Last Filed: 11/24/23 17:20> Patient seen and examined with MICROBIOLOGY COORDINATOR Ramiro on rounds this morning. s/p EGD this morning as above had slight improvement of nausea/vomiting overnight, able to keep a few sips down, pain persisting pain medication not sufficient, still with quite a bit of pain in the evening patient made NPO for bowel rest Dr. Cerna recommended gastric emptying study pt does report being told her stomach/intestines are slow ?gastroparesis states she was told she had a reaction to reglan a long time ago but can't recall will need to confirm we have tech to perform gastric emptying study <Mingo Ventura - Last Filed: 11/24/23 21:19>
[2023-11-24] MEDS ORDERED: propofoL 200 MG/20 ML VIAL IV ONE ×2 (09:03→09:11)
[2023-11-24] MEDS: ONDANSETRON 4 MG/2 ML VIAL ONE (09:25)
[2023-11-24] MEDS: MAGNESIUM SULFATE 1 gm IVPB 1 GM/100 ML BAG IV ONE (10:35)
--- NOTE | 2023-11-24 10:39 | CON ---
Date of Consultation: 11/24/2023 Reason For Consultation: Intractable nausea, vomiting, midepigastric pain. History Of Present Illness: The patient is a 53-year-old white female with history of hypertension, acid reflux disease, COPD, possible diabetes, multiple sclerosis, and multiple brain tumor surgeries. The patient presented to the hospital with intractable nausea, vomiting. Per son, states this is t he worst he has ever seen her. Patient states that she has been having this nausea, vomiting going o n over the past year. However, it has gotten worse over the past 24 hours for some unexplained reaso n. It appears that this nausea, vomiting began when they started Ozempic approximately 1 year ago, b ut now it is much worse. The patient denies any melena, hematochezia, hematemesis, coffee-ground esther sis, hematuria, dysuria, polydipsia. Additionally, he does have body aches and a history of multiple sclerosis she reports. Past Medical History: Significant for hypertension, epilepsy, COPD, possible diabetes, irritable bow el syndrome, multiple sclerosis, prolapsed bladder, brain tumor with 5 brain surgeries, , an d breast reconstruction. Medications: At home include Nexium, promethazine, atorvastatin, Coreg, gabapentin, Singulair, Zofra n, Protonix, Brilinta, Breztri aerosphere inhaler, Ensure high-protein, Slow-Mag, potassium, [place]acton e, tizanidine. Allergies: PENICILLIN, FLEXERIL, SULFA, TRAMADOL, TETRACYCLINE, CELEBREX, LORAZEPAM, TIZANIDINE, CYC LOSPORINE, AND LEVETIRACETAM. Review of Systems: The patient has nausea; vomiting; midepigastric pain; history of using CBD, but she says last use was 2 months ago. She denies any melena, hematochezia, hematemesis, coffee-ground emesis, hematuria, dy suria, polydipsia, chest pain, shortness of breath, seizure, syncope. She does have muscle aches, tera int aches, and backaches, but no chest pain, shortness of breath. No seizures, syncope. Does have d epression and anxiety. Physical Examination: Vital Signs: She is 5 feet 1 inch, 209 pounds, BMI 39.6 kg/sq m. Temperature 97.6 degrees Fahrenhei t, pulse 86, respirations 16, blood pressure 149/100, O2 sat 98%. General: She is an obese female, very histrionic and theatrical of Munchausen type picture with pain exaggerated to exam with distraction. She is disheveled. HEENT: Normocephalic, atraumatic. Pupils equal, round, and reactive to light. Anicteric. Orophary nx is clear. Neck: Supple. No masses. Respirations: Clear to auscultation bilaterally. Cardiac: Regular rate and rhythm. Gastrointestinal: Positive bowel sounds. Soft. Marked tenderness, but distractible. Generalized w ith mainly in the midepigastric periumbilical area. No peritoneal or Valero signs. Positive for gua rding. Extremities: No clubbing, cyanosis. 2+ pulses. Neuro: Alert and oriented x3. Grossly nonfocal. 5/5 motor sensation. Intact to light touch. Laboratory Data: The patient's white count 9.0, hemoglobin 12.5, hematocrit 37.2, MCV of 82, platele t count 233, polys of 67%, lymphocytes 27%, monocytes 6%. PT of 12.3, INR of 1.12. The patient's so dium 139, potassium 3.9, chloride 103, bicarb 30, BUN of 6, creatinine of 0.7, glucose 106, calcium 7 .9. Magnesium 1.6. Total bilirubin 0.6, AST of 22, ALT 24, alk phos 97. Total protein 6.7, albumin 2.9, lipase 22. CT abdomen and pelvis revealed no acute abdominal process. Impression: 1.Intractable nausea, vomiting, could be from multiple sources. The patient has a history of brain tumor and 5 brain surgeries in the past. Could be secondary to a cranial brain disorder. The patien t smokes CBD, but she states last use was 2 months ago. Could be related to that. Also, patient dennys es Ozempic. Nausea, vomiting again feels that Ozempic has been shown to cause permanent gastroparesi s and the patient may have sustained this, may need to get a gastric emptying study. Would also rule out any type of anatomical issue causing this as well. 2.Midepigastric pain. 3.History of hypertension. 4.Gastric reflux disease. 5.Chronic obstructive pulmonary disease. 6.Possible diabetes. 7.Irritable bowel syndrome. 8.Multiple sclerosis. 9.Prolapsed bladder. 10.Brain tumor with 5 surgeries. 11.. 12.Breast augmentation. Recommendations: 1.Continue p.r.n. pain medicines, antiemetics. 2.Check gastric emptying study. 3.EGD to rule out anatomical issues or problems disorders. 4.Consider brain imaging to rule out any problem with her brain with this history. 5.Would stop [place] at this time. HEATHER/MARCO A Voice ID: [id number] Report ID: [id number]
[2023-11-24] MEDS: PANTOPRAZOLE 40 MG INJ IVP SCH (13:04)
[2023-11-24] MEDS: PROMETHAZINE INJ 25 MG/ML AMP IV PRN (13:05)
[2023-11-24] MEDS: carvediloL 25 MG TAB PO SCH (18:00)
[2023-11-24] MEDS: MORPHINE 4 MG/ML SYR IV ONE (19:56)
[2023-11-25 01:09] LABS: Sqamous Epithelial <5 /HPF (None Seen); Urine Bacteria None Seen /HPF (<20); Urine Microscopic Reflex YN ORDER UMIC; Urine Mucus Slight /HPF (None Seen); Urine RBC <5 /HPF (None Seen); Urine WBC <5 /HPF (<5)
[2023-11-25 01:12] LABS: Specific Gravity 1.015 (1.005-1.030); Urine Bilirubin NEGATIVE (Negative); Urine Blood Negative (Negative); Urine Clarity Turbid (Clear); Urine Color Light-Yellow (Yellow); Urine Glucose NEGATIVE (Negative); Urine Ketones TRACE (Negative); Urine Nitrite NEGATIVE (Negative); Urine Protein NEGATIVE (Negative); Urine Urobilinogen Normal (Normal); Urine pH 7.5 (5.0-7.0)
[2023-11-25] MEDS: MORPHINE 4 MG/ML SYR IV ONE (05:37)
[2023-11-25 05:49] LABS: Absolute Basophils 0.1 K/uL (0-0.5); Absolute Lymphocytes (CBC) 2.5 K/uL (0.7-4.9); Absolute Monocytes 0.5 K/uL (0.1-1.3); Absolute Neutrophil 6.5 K/uL (1.8-8.0); Basophils % 0.5 % (0-1.3); Eosinophils % 0.4 % (0-4.4); Hematocrit 33.7 % (36.0-45.0); Hemoglobin 11.4 g/dL (12.0-15.0); Lymphocytes % 25.7 % (15.3-44.8); MCH 27.8 pg (27.0-35.0); MCHC 33.8 g/dL (32.0-36.0); MCV 82.3 fL (80-100); Monocytes % 5.6 % (3.3-12.3); Neutrophils % 67.8 % (41.7-73.7); Nucleated Red Blood Cells % 0.1 % (0-0); Platelets 189 thou/uL (152-406); RBC Red Blood Cell Count 4.09 M/uL (3.86-4.86); Red Cell Distribution Width 18.5 % (12.1-15.2)
[2023-11-25 06:08] LABS: Albumin 2.6 g/dL (3.4-5.0); Albumin/Globulin Ratio 0.8 (1.1-1.8); Anion Gap 7.3 mEq/L (5.0-15.0); Bilirubin Total 0.6 mg/dL (0.2-1.0); Globulin 3.4 g/dL (2.3-3.5); Magnesium 1.7 mg/dL (1.6-2.4); Potassium 3.3 mEq/L (3.5-5.1)
--- NOTE | 2023-11-25 06:42 | P.PN ---
Date of Service: 11/25/23 Subjective: No acute events overnight. + periumbilical abdominal pain + Nausea + Back pain (chronic) + Rash abdominal folds Plan of care discussed with patient and daughter at bedside. Physical Exam General: Alert, Oriented x3. In no apparent distress. HEENT: Atraumatic, Normocephalic. Sclera nonicteric. Respiratory: Clear to auscultation bilaterally. Normal air movement. unlabored respirations on room air. Cardiovascular: Regular rate/rhythm. No lower extremity edema. Gastrointestinal: Normal bowel sounds. Umbilical abdominal tenderness. Integumentary: Fungal dermatitis abdominal and breast folds. Neurological: Normal speech Vitals Reviewed Assessment and Plan Problem list Intractable nausea and vomiting Hiatal hernia Mild diffuse gastritis Gastroesophageal reflux disease Hypertension reported Diabetes mellitus type 2 COPD Chronic back pain Irritable Bowel Syndrome Obesity Hx brain tumor reported radiation therapy in 2014 Intractable nausea and vomiting Gastroesophageal reflux disease Hiatal Hernia Mild diffuse gastritis - Received promethazine and Benadryl 50mg in ED without improvement in nausea. She reports experiencing severe nausea x ~1 year since started on Ozemic. She was switched to Mounjaro ~3 months ago, but still having nausea. - CT abdomen pelvis "No acute intra-abdominal or pelvic finding." - CT head no acute findings - PRN antiemetics Zofran and promethazine - protonix IV BID - IV hydration - electrolyte replacement per protocol -Telemetry monitoring - GI consulted, Dr. Cerna - s/p EGD 11/23 w findings of hiatal hernia, mild gastritis; 2 biopsies samples obtained. - recommended gastric emptying study. - low dose Erythromycin 50mg po QID ; suspected gastroparesis -Clear liquid diet trial Hypertension - continue home carvedilol COPD - continue home meds reported diabetes mellitus type 2 -Hold Mounjaro -Hemoglobin A1c 5.4 -Accu-Cheks ACHS Chronic Back Pain -Continue home hydrocodone. - PRN IV pain medication for breakthrough pain. Fungal dermatitis -Continue nystatin powder VTE: lovenox GI ppx: protonix Code: full Dispo: ~24-48hrs
[2023-11-25] MEDS: KCL 20 MEQ/100 mL IVPB 20 MEQ/100 ML BAG IV SCH (07:25)
--- NOTE | 2023-11-25 08:37 | RAD REPORT ---
EXAM DESCRIPTION: CT - Head Brain Wo Cont - 11/25/2023 8:26 am CLINICAL HISTORY: Brain tumor. Intractable vomiting COMPARISON: 2022 TECHNIQUE: Computed axial tomography of the head was obtained. IV contrast was not requested. All CT scans are performed using dose optimization technique as appropriate and may include automated exposure control or mA/KV adjustment according to patient size. FINDINGS: An intracranial bleed is not seen The ventricles are normal in caliber No extra-axial fluid collection is noted. No significant hyperdensity brain seen. Fluid within the sinuses/ mastoids is not seen. IMPRESSION: No acute intracranial abnormality is seen If patient's symptoms persist MRI of the brain would be recommended
[2023-11-25] MEDS: MORPHINE 4 MG/ML SYR IV PRN (15:06)
[2023-11-25] MEDS: MAGNESIUM SULFATE 1 gm IVPB 1 GM/100 ML BAG IV ONE (15:10)
[2023-11-25] MEDS: ERYTHROMYCIN BASE 250 MG TAB PO SCH (16:26)
--- NOTE | 2023-11-25 19:17 | P.PN ---
Subjective Date of Service: 11/25/23 Chief Complaint: Intractable nausea and vomiting, CHERYL pain, DM Subjective: No new changes (Still with N/V, CHERYL/periumbilical pain moving. Nuclear medicine not available for 1-2 weeks reported. Gives history of probable gastroparesis diagnosis given her in the past. Brain scan negative.) Review of Systems 10-point ROS is otherwise unremarkable General: Weakness, Malaise Gastrointestinal: Nausea, Vomiting, Abdominal Pain Physical Examination - Vital Signs Temperature: 97.4 F Blood Pressure: 163/84 Pulse: 72 Respirations: 16 Pulse Ox (%): 97 - Physical Exam General: Alert, Oriented x3, Cooperative, Disheveled, Mild distress (histrionic but distractable ) HEENT: Atraumatic, Normocephalic, PERRLA, EOMI Neck: Supple Respiratory: Normal air movement Cardiovascular: Normal pulses Gastrointestinal: Non-distended, Tenderness, Guarding Neurological: Normal speech Assessment And Plan - Current Problems (Diagnosis) (1) Epigastric abdominal pain Current Visit: Yes Status: Acute (2) Periumbilical pain Current Visit: Yes Status: Acute (3) Intractable nausea and vomiting Onset Date: 04/04/18 Current Visit: No Status: Acute (4) Multiple sclerosis Onset Date: 04/04/18 Current Visit: No Status: Acute - Plan REC: 1) start Erythromycin 40-50 mg po qid (since nuclear medicine not available to 1-2 weeks & history of DM & today gives history of probable gastroparesis diagnosis in the past) 2) continue anti-emetics and pain meds prn 3) IVFs
[2023-11-25] MEDS: NYSTATIN PWDR 100000 UNIT/GM TOP SCH (21:00)
[2023-11-26 07:16] LABS: Hematocrit 37.4 % (36.0-45.0); Hemoglobin 12.6 g/dL (12.0-15.0); MCH 27.9 pg (27.0-35.0); MCHC 33.7 g/dL (32.0-36.0); MCV 82.6 fL (80-100); MPV 7.2 fL (7.6-11.3); Platelets 179 thou/uL (152-406); RBC Red Blood Cell Count 4.53 M/uL (3.86-4.86); Red Cell Distribution Width 17.8 % (12.1-15.2)
[2023-11-26 07:36] LABS: Anion Gap 8.2 mEq/L (5.0-15.0); Magnesium 2.2 mg/dL (1.6-2.4); Potassium 3.2 mEq/L (3.5-5.1)
--- NOTE | 2023-11-26 09:08 | P.PN ---
Date of Service: 11/26/23 Subjective: Patient reports feeling somewhat better this morning. No vomiting this morning. Still with some nausea. Chronic back pain. No acute events overnight. In no apparent distress ROS: 10 point ROS as noted above, otherwise negative Physical Exam General: Alert, Oriented x3. In no apparent distress. HEENT: Atraumatic, Normocephalic. Sclera nonicteric. Respiratory: Clear to auscultation bilaterally. Normal air movement. unlabored respirations on room air. Cardiovascular: Regular rate/rhythm. No lower extremity edema. Gastrointestinal: Normal bowel sounds. Umbilical abdominal tenderness. Integumentary: Fungal dermatitis abdominal and breast folds. Neurological: Normal speech Vitals Reviewed Assessment and Plan Problem list Intractable nausea and vomiting Hiatal hernia Mild diffuse gastritis Gastroesophageal reflux disease Hypertension reported Diabetes mellitus type 2 COPD Chronic back pain Irritable Bowel Syndrome Obesity Hx brain tumor reported radiation therapy in 2014 Intractable nausea and vomiting Gastroesophageal reflux disease Hiatal Hernia Mild diffuse gastritis - Received promethazine and Benadryl 50mg in ED without improvement in nausea. She reports experiencing severe nausea x ~1 year since started on Ozemic. She was switched to Mounjaro ~3 months ago, but still having nausea. - CT abdomen pelvis "No acute intra-abdominal or pelvic finding." - CT head no acute findings - PRN antiemetics Zofran and promethazine - protonix IV BID - IV hydration. electrolyte replacement per protocol -Telemetry monitoring - GI consulted, Dr. Cerna - s/p EGD 11/23 w findings of hiatal hernia, mild gastritis; 2 biopsies samples obtained. - Likely gastroparesis, gastric empyting study recommended however nuclear medicine not available at this time. Started on empiric therapy for gastroparesis with erythromycin given reported allergy to Reglan. - Erythromycin 50mg po QID Hypertension - continue home carvedilol COPD - continue home meds reported diabetes mellitus type 2 -Hold Mounjaro -Hemoglobin A1c 5.4 -Accu-Cheks ACHS Chronic Back Pain -Continue home hydrocodone. - PRN IV pain medication for breakthrough pain. Wean off to only home pain medications. Fungal dermatitis -Continue nystatin powder Dysphagia - speech therapy consulted VTE: lovenox GI ppx: protonix Code: full Dispo: ~24-48hrs
[2023-11-26] MEDS: ERYTHROMYCIN 200 MG/5ML 100ML PO SCH (09:51)
[2023-11-26] MEDS: KCL 20 MEQ/100 mL IVPB 20 MEQ/100 ML BAG IV SCH (09:52)
[2023-11-26] MEDS: HYDROCODONE/APAP 7.5/325 MG TAB PO PRN (11:37)
[2023-11-27] MEDS: KCL 20 MEQ/100 mL IVPB 20 MEQ/100 ML BAG IV SCH (02:47)
[2023-11-27 06:45] LABS: Hematocrit 35.4 % (36.0-45.0); Hemoglobin 11.7 g/dL (12.0-15.0); MCH 27.4 pg (27.0-35.0); MCHC 33.1 g/dL (32.0-36.0); MCV 82.7 fL (80-100); MPV 7.4 fL (7.6-11.3); Platelets 194 thou/uL (152-406); RBC Red Blood Cell Count 4.28 M/uL (3.86-4.86)
--- NOTE | 2023-11-27 06:50 | P.PN ---
Date of Service: 11/27/23 Subjective: Patient reports continued improvement in nausea/vomiting this morning. + mild nausea + mild abdominal pain otherwise no new or worsening complaints. In no apparent distress. ROS: 10 point ROS as noted above, otherwise negative Physical Exam General: Alert, Oriented x3. In no apparent distress. HEENT: Atraumatic, Normocephalic. Sclera nonicteric. Poor dentition. Respiratory: Normal air movement. Clear to auscultation bilaterally.Nonlabored respirations on room air. Cardiovascular: Regular rate/rhythm. No lower extremity edema. Gastrointestinal: Normal bowel sounds. Umbilical abdominal tenderness. Integumentary: Fungal dermatitis abdominal and breast folds. Neurological: Normal speech Vitals Reviewed Assessment and Plan Problem list Intractable nausea and vomiting Hiatal hernia Mild diffuse gastritis Gastroesophageal reflux disease Hypertension reported Diabetes mellitus type 2 COPD Chronic back pain Irritable Bowel Syndrome Obesity Hx brain tumor reported radiation therapy in 2014 Intractable nausea and vomiting Gastroesophageal reflux disease Hiatal Hernia Mild diffuse gastritis - Received promethazine and Benadryl 50mg in ED without improvement in nausea. She reports experiencing severe nausea x ~1 year since started on Ozemic. She was switched to Mounjaro ~3 months ago, but still having nausea. - CT abdomen pelvis "No acute intra-abdominal or pelvic finding." - CT head no acute findings - PRN antiemetics Zofran and promethazine - protonix IV BID - electrolyte replacement per protocol -Telemetry monitoring - GI consulted, Dr. Cerna - s/p EGD 11/23 w findings of hiatal hernia, mild gastritis; 2 biopsies samples obtained. - Likely gastroparesis. Gastric empyting study recommended however nuclear medicine not available at this facility for 1-2 weeks. Started on empiric therapy for gastroparesis with erythromycin, given reported allergy to Reglan. - Erythromycin 50mg po QID -Tolerating diet. Hypertension - continue home carvedilol COPD - continue home meds reported diabetes mellitus type 2 -Hold Mounjaro -Hemoglobin A1c 5.4 -Accu-Cheks ACHS. Insulin per sliding scale. Chronic Back Pain -Continue home hydrocodone. - PRN IV pain medication for breakthrough pain. Will wean off to only home pain medications. Fungal dermatitis -Continue nystatin powder x 2 weeks Dysphagia - speech therapy consulted, recommended pured diet. VTE: lovenox GI ppx: protonix Code: full Dispo: home ~24H <Jacqueline Rubio - Last Filed: 11/27/23 16:37> Patient seen and examined. She states she feels better today. She has not vomited with meals today but complaining of intermittent epigastric pain. She has other multiple nonspecific symptoms including intermittent periods of feeling hot with flashes and periods of feeling cold. Continue IV Protonix for gastritis and hiatal hernia. Sucralfate added for symptoms control. Yael is on hold Continue azithromycin Check TSH, free T4, cortisol levels. Speech therapy input appreciated. Patient is currently tolerating pureed diet. <abraham mckeon - Last Filed: 11/27/23 17:52>
[2023-11-27 06:53] LABS: Anion Gap 10.1 mEq/L (5.0-15.0); Potassium 4.1 mEq/L (3.5-5.1)
[2023-11-27] MEDS: GABAPENTIN 300 MG CAP PO SCH (08:43)
[2023-11-27] MEDS: MORPHINE 4 MG/ML SYR IV PRN (08:54)
[2023-11-27] MEDS: SUCRALFATE 1GM/10ML UCUP PO SCH (11:35)
[2023-11-28 09:09] VITALS: BP 136/75
[2023-11-28 09:44] VITALS: O2SAT 93
[2023-11-28 10:21] VITALS: TEMP 97
[2023-11-28 10:55] LABS: Anion Gap 7.2 mEq/L (5.0-15.0); Phosphorus 2.1 mg/dL (2.5-4.9); Potassium 3.2 mEq/L (3.5-5.1)
[2023-11-28 12:35] LABS: Thyroid Stimulating Hormone 2.51 uIU/mL (0.358-3.740)
--- NOTE | 2023-11-28 17:46 | P.DS ---
Admission Date: 11/24/23 Discharge Date: 11/28/23 Disposition: ROUTINE DISCHARGE Discharge Condition: GOOD Reason for Admission: Intractable nausea and vomiting, CHERYL pain, DM Brief History of Present Illness: 53-year-old female with a past medical history of HTN, GERD, COPD, irritable bowel syndrome who presented to the ED with complaints of intractable nausea and vomiting x 24 hours. She reports having nausea for the past year since being started on Ozempic. Vomiting started 24 hours ago not resolved despite taking promethazine and Zofran at home. Also Reports feeling "acid reflux flare up" on sunday after eating chicken [employer] which was not relieved by taking protonix at home. Emesis is light green in color. Denies any bloody or dark colored stools. CBC unremarkable. Hypokalemic. CT abdomen pelvis without acute intra-abdominal or pelvic findings. Patient admitted for intractable nausea vomiting. GI consulted. Hospital Course: Problem list Intractable nausea and vomiting Hiatal hernia Mild diffuse gastritis Gastroesophageal reflux disease Hypertension reported Diabetes mellitus type 2 COPD Chronic back pain Irritable Bowel Syndrome Obesity Hx brain tumor reported radiation therapy in 2013 Presented with intractable nausea and vomiting, initially no relief from Zofran or promethazine. CT abdomen pelvis without acute intra-abdominal or pelvic findings. Continued IV hydration and electrolyte replacements per protocol. GI was consulted, patient underwent EGD on 11/24/2023 with findings of hiatal hernia and mild gastritis; biopsy reporting mild chronic inactive gastritis, no evidence of malignancy, no Helicobacter pylori organisms identified. CT head negative for acute process. Symptoms suggestive of gastroparesis, unable to obtain gastric emptying studying as nuclear medicine not available for 1 to 2 weeks. She was started on erythromycin for gastroparesis given Reglan allergy. Symptoms have significantly improved, she denies any nausea or vomiting. Tolerating diet. Patient deemed stable for discharge. New Medications: -Erythromycin 100 mg PO four times daily with meals for 4 weeks - Sucralfate 1g PO four times daily (with meals and at bedtime) x 4 weeks - Nystatin powder twice daily for 7 days Continue taking your home medications as previously prescribed Follow-ups -Follow-up with your primary care physician within 1 week. Please call office to schedule appointment. Consults: -GI: Dr Cerna Physical Exam General: Alert, Oriented x3. In no apparent distress. HEENT: Atraumatic, Normocephalic. Sclera nonicteric. Poor dentition. Respiratory: Normal air movement. Clear to auscultation bilaterally.Nonlabored respirations on room air. Cardiovascular: Regular rate/rhythm. No lower extremity edema. Gastrointestinal: Normal bowel sounds. Soft, nondtender, nondistended. Integumentary: Fungal dermatitis abdominal and breast folds. Neurological: Normal speech Vital Signs/Physical Exam: Temp Pulse Resp BP Pulse Ox 97.0 F 73 17 136/75 95 11/28/23 08:00 11/28/23 08:54 11/28/23 08:00 11/28/23 08:54 11/28/23 08:00 Laboratory Data at Discharge: WBC 10.40 thou/uL (4.3-10.9) 11/27/23 06:19 Hgb 11.7 g/dL (12.0-15.0) L 11/27/23 06:19 Hct 35.4 % (36.0-45.0) L 11/27/23 06:19 Plt Count 194 thou/uL (152-406) 11/27/23 06:19 PT 12.3 SECONDS (9.5-12.5) 11/24/23 03:46 INR 1.12 11/24/23 03:46 Sodium 135 mEq/L (136-145) L 11/28/23 10:31 Potassium 3.2 mEq/L (3.5-5.1) L 11/28/23 10:31 BUN 3 mg/dL (7-18) L 11/28/23 10:31 Creatinine 0.52 mg/dL (0.55-1.02) L 11/28/23 10:31 Glucose 127 mg/dL (74-106) H 11/28/23 10:31 Phosphorus 2.1 mg/dL (2.5-4.9) L 11/28/23 10:31 Magnesium 2.2 mg/dL (1.6-2.4) 11/26/23 06:36 Total Bilirubin 0.6 mg/dL (0.2-1.0) 11/25/23 05:35 AST 27 U/L (15-37) 11/25/23 05:35 ALT 23 U/L (13-56) 11/25/23 05:35 Alkaline Phosphatase 80 U/L (45-117) 11/25/23 05:35 Lipase 37 U/L (13-75) 11/25/23 15:11 Home Medications: Promethazine HCl 1 tab PO Q12HR PRN 04/03/18 Atorvastatin Calcium 10 mg PO DAILY 08/04/22 Gabapentin 300 mg PO TID 08/04/22 Montelukast [Singulair*] 10 mg PO DAILY 08/04/22 Ondansetron [Zofran (Odt)*] 4 mg PO Q8H PRN 08/04/22 Pantoprazole [Protonix Tab*] 40 mg PO DAILY 08/04/22 Budesonide/Glycopyr/Formoterol [Breztri Aerosphere Inhaler] 2 puff .ROUTE SEECOM 08/21/23 Lactose-Reduced Food [Ensure High Protein] 237 ml PO TID #30 bottle 08/21/23 Magnesium Chloride [Slow-Mag*] 64 mg PO DAILY #15 tab 08/21/23 Potassium Chloride 10 meq PO DAILY #30 tab 08/21/23 Spironolactone [Aldactone*] 25 mg PO BID #60 tab 08/21/23 Tizanidine HCl 2 mg PO Q8H 08/21/23 Esomeprazole Magnesium [Nexium 24Hr] 20 mg PO BREAKFAST 11/24/23 Hydrocodone/Acetaminophen [Hydrocodone-Acetamin 7.5-325] 1 tab PO Q8HR 11/24/23 Lidocaine 4% Patch [Lidoderm 5% Patch*] 1 patch TD DAILY 11/24/23 Linaclotide [Linzess] 1 cap PO DAILY PRN 11/24/23 Nortriptyline HCl [Pamelor] 50 mg PO BEDTIME 11/24/23 Quetiapine Fumarate [Seroquel] 50 mg PO BEDTIME 11/24/23 Tirzepatide [Mounjaro] 10 mg SQ SEECOM 11/24/23 Erythromycin Ethylsuccinate [E.e.s. 200] 2.5 ml PO ACHS 28 Days #140 ml 11/28/23 Nystatin Powder [Mycostatin (Powder)*] 15 appl TOP BID 7 Days #1 btl 11/28/23 Sucralfate 10 ml PO ACHS #420 ml 11/28/23 New Medications: Erythromycin Ethylsuccinate [E.e.s. 200] 2.5 ml PO ACHS 28 Days #140 ml Nystatin Powder [Mycostatin (Powder)*] 15 appl TOP BID 7 Days #1 btl Sucralfate 10 ml PO ACHS #420 ml Physician Discharge Instructions: Presented with intractable nausea and vomiting, initially no relief from Zofran or promethazine. CT abdomen pelvis without acute intra-abdominal or pelvic findings. Continued IV hydration and electrolyte replacements per protocol. GI was consulted, patient underwent EGD on 11/24/2023 with findings of hiatal hernia and mild gastritis; biopsy reporting mild chronic inactive gastritis, no evid ence of malignancy, no Helicobacter pylori organisms identified. CT head negative for acute process. Symptoms suggestive of gastroparesis, unable to obtain gastric emptying studying as nuclear medicine not available for 1 to 2 weeks. She was started on erythromycin for gastroparesis given Reglan allergy. Symptoms have significantly improved, she denies any nausea or vomiting. Tolerating diet. Patient deemed stable for discharge. New Medications: -Erythromycin 100 mg PO four times daily with meals for 4 weeks - Sucralfate 1g PO four times daily (with meals and at bedtime) x 4 weeks - Nystatin powder twice daily for 7 days Continue taking your home medications as previously prescribed Follow-ups -Follow-up with your primary care physician within 1 week. Please call office to schedule appointment. Consults: -GI: Dr Cerna Diet: ADA Activity: Ad kyree Followup: Wilbur Oliveira DO [Primary Care Provider] - 1-2 Weeks Pako Cerna MD [ASSOCIATE-ACTIVE - CAN ADMIT] - 1-2 Weeks
== END 2023-11-28 13:59 | disposition home or self-care (01) | DRG 74 ==
LOC: ER 08:28 → ERHOLD 12:30 → 2ND 16:13 → OBSVTOIN 11-24 21:17
PROVIDERS: ADMIT Hospitalist; ATTEND Internal Medicine
PROC: 0DB78ZX Excision of Stomach, Pylorus, Via Natural or Artificial Opening Endoscopic, Diagnostic (ICD-10-PCS; 2023-11-24)
PROC: 0DB68ZX Excision of Stomach, Via Natural or Artificial Opening Endoscopic, Diagnostic (ICD-10-PCS; principal; 2023-11-24 08:30)
DX: E11.43 Type 2 diabetes mellitus with diabetic autonomic (poly)neuropathy (principal); K31.84 Gastroparesis; K29.30 Chronic superficial gastritis without bleeding; E87.6 Hypokalemia; I10 Essential (primary) hypertension; G89.29 Other chronic pain; G35 Multiple sclerosis; M54.9 Dorsalgia, unspecified; N81.10 Cystocele, unspecified; K44.9 Diaphragmatic hernia without obstruction or gangrene; K58.9 Irritable bowel syndrome, unspecified; K21.9 Gastro-esophageal reflux disease without esophagitis; E66.9 Obesity, unspecified; J44.9 Chronic obstructive pulmonary disease, unspecified; B36.9 Superficial mycosis, unspecified; R13.10 Dysphagia, unspecified; Z88.0 Allergy status to penicillin; Z88.1 Allergy status to other antibiotic agents; Z88.5 Allergy status to narcotic agent; Z88.2 Allergy status to sulfonamides; Z88.8 Allergy status to other drugs, medicaments and biological substances; Z79.02 Long term (current) use of antithrombotics/antiplatelets; Z68.35 Body mass index [BMI] 35.0-35.9, adult; Z79.899 Other long term (current) drug therapy
CPT/HCPCS: 36415; 70450; 74177; 80048; 80053; 81001; 82533; 82947; 83036; 83690; 83735; 84100; 84132; 84439; 84443; 84484; 85025; 85027; 85610; 88305; 88312; 92526; 92610; 94760; 99285; C9113; G0378; J1200; J1650; J2405; J2550; J2704; J3475; J3480; J7030; Q9967

== ENCOUNTER 2024-02-29 15:57 | Emergency (ER) | payer OTHER ==
--- OUTSIDE RECORDS SUMMARY | 2024-02-29 15:59 | XMS REPORT | Clinical Summary ---
Author Name Unknown Organization [facility] Address [address] [place] [address] Care Team Providers Care Panelbeater Name Role Phone Mingo Street MD Primary Care Provider Nomi Olea MD Unavailable Pedro Comer MD Unavailable [phone] Haresh Venegas MD Unavailable [email or web address] Magnolia Holden MD Unavailable Prince Abdoul SHEET MET[employer]SEMBLER [employer]IV[employer]ER Unavailable [phone] Darnell Wellington MD Unavailable Jossue Suresh Unavailable [phone] MD Unavailable [phone] Margarita Chaves PA Unavailable [phone] Kimber Mendoza MD Unavailable Cherrie Johnson [employer]ER Unavailable [phone] Tigist Morgan MD Unavailable [phone] Cleopatra Al MD Unavailable [phone] Allergies Active Allergy Reactions Criticality Noted [...] High 08/20/2021 Per patient throat closes up Tappen Analogues Other (See Comments) 01/21/20 16 Penicillins High 03/01/2016 Throat closes up Metoclopramide Hcl Other (See Comments) Low 016 Tetracyclines Hives 01/21/2016 Tramadol Shortness Of Breath High 03/01/2016 Throat closes up Tizanidine 04/10/2016 unknown Medications Medication Sig Dispensed Refills Start Date End Date Status esomeprazole (NexIUM) 40 MG capsule Take 40 mg by mouth 2 (two) times a day before meals. Active dicyclomine (BENTYL) 10 mg capsule Take 10 mg by mouth every 4 (four) hours as needed. Active ADVAIR DISKUS 100-50 mcg/dose diskus inhaler daily as needed. 1 11/23/2016 Active phenazopyridine (PYRIDIUM) 100 mg tablet Take 100 mg by mouth every 6 (six) hours as needed. Active ondansetron (ZOFRAN) 8 mg tablet 2 tablets 3 (three) times a day. 09/09/2021 Active zinc (Chelated Zinc) 50 mg tab Take by mouth. Active magnesium oxide-protein complex (Tg-Ejsl-Qwcivdq Complex) 133 mg tablet Take 4 tablets by mouth daily. Active cholecalciferol, vitamin D3, (VITAMIN D3) 2,000 units tab tablet Take 2,000 Units by mouth. Active ascorbic acid, vitamin C, (vitamin C) 100 mg tablet Take 500 mg by mouth daily. Pt can't remember the dose Active diazePAM (VALIUM) 5 mg tablet Take 5 mg by mouth 4 (four) times a day. As needed Active carisoprodol (SOMA) 350 mg tablet Take 350 mg by mouth. 10/27/2007 Active promethazine (PHENERGAN) 12.5 mg tablet Take by mouth. Active Active Problems Problem Noted Date Diagnosed Date Moderate dehydration 08/13/2021 Nausea 08/13/2021 Bronchopneumonia 01/30/2017 Hyposmolality and/or hyponatremia 01/30/2017 Abdominal pain 01/30/2017 Productive cough 01/30/2017 Dysuria 01/30/2017 Tachycardia 01/30/2017 Hypoxia 01/30/2017 under baster current use of opiate analgesic 2016 Post-traumatic stress disorder 11/01/2016 Mild cognitive disorder 11/01/2016 Adjustment disorder with physical complaints 11/2016 Hyponatremia 10/31/2016 Melena 10/31/2016 Endometriosis 10/31/2016 Urinary tract infection 10/31/2016 Colitis 10/31/2016 Chronic pain syndrome 10/31/2016 Tobacco use 10/31/2016 Anemia of chronic disease 10/31/2016 Headache 10/31/2016 Abdominal pain, generalized 04/13/2016 Generalized anxiety disorder 04/13/2016 Surgical History Surgery Date Site/Laterality Comments BREAST RECONSTRUCTION TX ESOPHAGOGASTRODUODENOSCOP Y TRANSORAL DIAGNOSTIC 11/02/2016 Esophagus/N/A Procedure: DIAGNOSTIC UPPER GASTROINTESTINAL ENDOSCOPY; Surgeon: Apoorva Wen MD; Location: MAIN ENDOSCOPY; Service: GASTROENTEROLOGY TX COLONOSCOPY FLX DX W/JEANETTE J SPEC WHEN PFRMD 11/02/2016 N/A Procedure: DIAGNOSTIC FLEXIBLE COLONOSCOPY PROXIMAL TO SPLENIC FLEXURE; Surgeon: Apoorva Wen MD; Location: MAIN ENDOSCOPY; Service: GASTROENTEROLOGY COLONOSCOPY 07/30/1998 - 07/29/1999 EXPLORATORY LAPAROTOMY [id number] HYSTERECTOMY [id number] UPPER GASTROINTESTINAL ENDOSCOPY - 07/29/1999 Medical History Medical History Date Comments Stroke Seizure Myocardial infarction 1998 Hyperlipidemia Irregular heart beat Migraine 1982 Multiple sclerosis 1970 Traumatic brain injury 8148-6579 Allergic rhinitis 4454-4721 Sinusitis 9579-0427 Difficulty talking 2016 Tooth disorder 2012 Swallowing problem 2003 Chronic bronchitis 4280-5516 Asbestosis 0782-6674 Pneumonia 2004 Gastric reflux 1987 Colitis [address] cheikh ve different diagnosis Celiac disease 2006 Malabsorption syndrome 1982 Diverticulitis [id number] Irritable bowel syndrome 1999 Renal stone 1981 History of recurrent urinary tract infection 1987 Urinary incontinence 9382-3821 Sexual dysfunction [id number] Abnormal uterine bleeding un related to menstrual cycle 7095-7989 Polycystic ovarian syndrome 1989 Endometriosis 1441-6297 Dr Nahomi ramirez d endo had traveled to other organs,hips, sp Anemia 2008 Blood transfusion, without r eported diagnosis 1981 Size J, breast total reconst uction Osteoporosis 2009 Osteomyelitis 1994 Breake of wrist had to take antibiotics Anxiety 1095-3070 do not have anxi ety or panic attacks since 2003 Psoriasis 1968-current Endometrial carcinoma Cancer - 1 990's Multiple sclerosis 11/27/[address] Citlali reeves Neurologist in [place] (Pt reported) Family History Medical History Relation Name Comments -Other cancer Father Costa Alegria 1981-? Bone ca [email or web address] Hypertension Father [place] Alegria Melanoma Father [place] Aleg[place] Prostate cancer Father Costa Alegria Sarcoma Father Costa Alegria Bone cancer Skin cancer Father Costa Alegria Colon cancer Maternal Aunt Asyabielynn Colon cancer Maternal Grandfather Prashant Yarbrough Graves' [...] cancer Paternal Uncle Prashant -Unknown cancer Sister [facility] Graves' disease Sister [facility] Uterine cancer Sister [facility] Vaginal cancer Sister [facility] Relation Name Status Comments Father Costa Alegria Maternal Aunt Debbielynn Maternal Grandfather Prashant Diazp Mother Florence Paternal Aunt 1 Billysue Raji Paternal Aunt 2 Debbielynn Paternal Grandfather Demar Paternal Grandmother Hunt Paternal Uncle Prashant Sister [facility] Social History Tobacco Use Types Packs/Day Years Used Date Smoking Tobacco: Every Day Cigarettes 1.5 17.2 Started: 11/29/2006 Smokeless Tobacco: Never Tobacco Cessation:Ready to Q uit: No Alcohol Use Standard Drinks/Week Comments No 0 (1 standard drink = 0.6 oz pur e alcohol) Sex and Gender Information Value Date Recorded Sex Assigned at Female 11/22/2021 4:37 PM CDT Gender Identity Female 09/14/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 Sexual Orientation Straight 09/14/2021 3: 07 AM 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 Job Start Date Occupation Industry Not on file Not on file Not on file Obstetrics History Para Term AB IAB SAB Ectopic Multiple Livin g Live Births 2 2 2 Date Outcome GA Total Labor Labor/2nd/3rd Weight Sex Type Anes PTL Arlette A1 A5 Name Clin Para Para Comments Menarche 12 Parity 19 OBC yes Hormonal Therapy yes Last Pap 2009 Abnormal Pap yes Last [place] 2009 Last Colon yes Breast Bx no Plan of Treatment Health Maintenance Due Date Last Done Comments COVID-19 Vaccine ( season) 2023 Influenza Vaccine 03/30/2024 Advance Directives * Full Code (Latest Code Status on File) Date Activated Date Inactivated Comments 08/13/2021 11:31 PM 08/14/2021 11:37 AM * Full Code Date Activated Date Inactivated Comments 01/30/2017 9:39 PM 01/31/2017 3:59 PM * Full Code Date Activated Date Inactivated Comments 10/31/2016 4:56 AM 11/04/2016 5:01 PM * Full Code Date Activated Date Inactivated Comments 04/10/2016 10:29 PM 04/12/2016 5:58 PM Care Teams Panelbeater Relationship Specialty Start Date End Date Mingo Street MD [address] [place] [id number] [email or web address] PCP - General 09/29/15 Nomi Olea MD [address] [place] [id number] PCP - External Follow Up A 04/03/14 Pedro Comer MD [address] [facility] [address] [place] [address] PCP - External Follow Up B 04/20/14 Kimber Mendoza MD [address] [place] [id number] [email or web address] PCP - External Follow Up C Internal Medicine 11/08/21 Haresh Venegas MD [email or web address] Nurse Practitioner 10/06/15 Magnolia Holden MD [address] [place] [phone] [email or web address] Physician 10/06/15 Prince Schreiber APRN [address] [place] [phone] [email or web address] Nurse Practitioner 10/06/15 Darnell Wellington MD [address] [place] [phone] [email or web address] Physician 10/06/15 Jossue Suresh PA [address] [place] [phone] [email or web address] Physician Warpman 10/06/[address] MD [address] [place] [id number] [email or web address] Physician 10/06/15 Margarita Chaves PA [address] [place] [phone] [email or web address] Physician Warpman 10/06/15 Cherrie Johnson APRN [address] [place] [phone] [email or web address] Nurse Practitioner Cancer Prevention 09/16/21 Tigist Morgan MD [address] [place] [id number] [email or web address] Consulting Physician Dermatology 09/26/21 Cleopatra Al MD [address] [place] [id number] [email or web address] Consulting Physician Gynecological Oncology 12/07/16
[2024-02-29] MEDS ORDERED: NA CHLORIDE 0.9% 1,000 ML ONE (16:04)
[2024-02-29] MEDS ORDERED: DIPHENHYDRAMINE 50 MG/ML VIAL ONE (16:04)
[2024-02-29 16:35] LABS: Absolute Basophils 0.1 K/uL (0-0.5); Absolute Lymphocytes (CBC) 2.3 K/uL (0.7-4.9); Absolute Monocytes 0.7 K/uL (0.1-1.3); Basophils % 0.7 % (0-1.3); Hematocrit 40.5 % (36.0-45.0); Hemoglobin 13.3 g/dL (12.0-15.0); Lymphocytes % 17.5 % (15.3-44.8); MCH 29.2 pg (27.0-35.0); MCHC 32.9 g/dL (32.0-36.0); MCV 88.8 fL (80-100); MPV 7.1 fL (7.6-11.3); Monocytes % 5.1 % (3.3-12.3); Neutrophils % 76.7 % (41.7-73.7); Nucleated Red Blood Cells % 0.1 % (0-0); Platelets 243 thou/uL (152-406); RBC Red Blood Cell Count 4.56 M/uL (3.86-4.86); Red Cell Distribution Width 17.2 % (12.1-15.2)
[2024-02-29 16:50] LABS: Albumin 3.1 g/dL (3.4-5.0); Albumin/Globulin Ratio 0.7 (1.1-1.8); Anion Gap 11.2 mEq/L (5.0-15.0); Bilirubin Total 0.5 mg/dL (0.2-1.0); Globulin 4.4 g/dL (2.3-3.5); Potassium 3.2 mEq/L (3.5-5.1); Protein, Total 7.5 g/dL (6.4-8.2)
--- NOTE | 2024-02-29 16:54 | RAD REPORT ---
EXAM DESCRIPTION: CT - Abdomen Pelvis Wo Contrast - 02/29/2024 4:32 pm CLINICAL HISTORY: ABD PAIN COMPARISON: Abdomen Pelvis W Contrast dated 11/23/2023; Abdomen Pelvis W/Wo Contrast dated 2021; Abdomen Pelvis W Contrast dated 04/03/2018; Abdomen Pelvis W Contrast dated 08/21/2017 TECHNIQUE: Thin cut axial CT imaging of the abdomen and pelvis was performed without IV contrast. Mu ltiplanar reformats were generated and reviewed. All CT scans are performed using dose optimization technique as appropriate and may include automated exposure control or mA/KV adjustment according to patient size. FINDINGS: No suspicious findings in the lung bases. The liver, spleen, adrenal glands, and pancreas show no suspicious findings. Gallbladder shows layeri ng sludge, without acute inflammatory process or gallstones. Symmetric renal contour, without suspicious parenchymal findings within limits of noncontrast techniq ue. No evidence of radiopaque calculi or hydroureteronephrosis. No dilated bowel loops or bowel wall thickening. No free air, free fluid or inflammatory stranding. N o hernia, mass or bulky lymphadenopathy. The urinary bladder is decompressed limiting evaluation. No suspicious bony findings. IMPRESSION: No acute intra-abdominal process.
--- NOTE | 2024-02-29 17:13 | ER ---
Nurse's Notes [facility] Name: Lianne Medina Age: 53 yrs Sex: Female : 1970 Arrival Date: 02/29/2024 Time: 15:57 Bed 18 Private MD: Diagnosis: Gastroparesis Presentation: 02/28 16:01 Chief complaint: N/V and abdominal cramping x 2 days. 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 BP 120/77, HR 64, R 21, SpO2 100% RA. Coronavirus screen: At this time, the client does not indicate any symptoms associated with coronavirus-19. Ebola Screen: No symptoms or risks identified at this time. Initial Sepsis Screen: Does the patient meet any 2 criteria? No. Patient's initial sepsis screen is negative. Does the patient have a suspected source of infection? No. Patient's initial sepsis screen is negative. Risk Assessment: Do you want to hurt yourself or someone else? Patient reports no desire to harm self or others. Onset of symptoms was February 28, 2024. 16:01 Method Of Arrival: [facility]: [facility] hb 16:01 Acuity: BRANDEN 3 hb Historical: - Allergies: 16:04 Celecoxib; hb 16:04 cyclobenzaprine HCl; hb 16:04 CYCLOSPORINE; hb 16:04 divalproex; hb 16:04 Fentanyl; hb 16:04 levetiracetam; hb 16:04 Lorazepam; hb 16:04 Metoclopramide; hb 16:04 PENICILLINS; hb 16:04 PENTAZOCINE; hb 16:04 Phenytoin; hb 16:04 Prochlorperazine; hb 16:04 Sulfa (Sulfonamide Antibiotics); hb 16:04 TETRACYCLINES; hb 16:04 Tizanidine; hb 16:04 Toradol; hb 16:04 tramadol; hb - Home Meds: 16:04 albuterol sulfate 90 mcg/actuation Inhl HFA Aerosol Inhaler [Active]; atorvastatin 10 hb mg Oral tablet nightly [Active]; Breztri Aerosphere 160-9-4.8 mcg/actuation inhalation HFA Aerosol Inhaler 2 times per day [Active]; carvedilol 25 mg Oral tablet 2 times per day [Active]; dicyclomine 10 mg Oral capsule 3 times per day [Active]; esomeprazole magnesium 20 mg Oral capsule daily [Active]; fluticasone propionate 50 mcg/actuation intranasal spray daily [Active]; gabapentin 300 mg Oral capsule 3 caps 3 times per day [Active]; hydrocodone-acetaminophen 7.5-325 mg Oral tablet every 8 hours [Active]; ketoconazole 2 % Topical gel twice a day [Active]; linaclotide 72 mcg Oral capsule daily [Active]; montelukast 10 mg Oral tablet nightly [Active]; Mounjaro 10 mg/0.5 mL subcutaneous Pen Injector every week [Active]; multivitamin Oral tablet daily [Active]; nortriptyline 50 mg Oral capsule nightly [Active]; ondansetron 4 mg Oral Tablet [Active]; spironolactone 25 mg Oral tablet every 12 hours [Active]; phenazopyridine 100 mg Oral tablet 3 times per day [Active]; promethazine 25 mg Oral tablet [Active]; quetiapine 50 mg Oral tablet nightly [Active]; tizanidine 2 mg Oral tablet every 8 hours [Active]; - PMHx: 16:04 brain aneurysm; brain tumor x 5; Cancer; Multiple Sclerosis; prolapsed bladder; Hernia; hb - Immunization history:: Adult Immunizations up to date. - Infectious Disease History:: Denies. - Social history:: Smoking status: Patient denies any tobacco usage or history of. Screenin:23 [facility] ED Fall Risk Assessment (Adult) History of falling in the last 3 months, mb9 including since admission No falls in past 3 months (0 pts) Confusion or Disorientation No (0 pts) Intoxicated or Sedated No (0 pts) Impaired Gait Yes (1 pt) Mobility Assist Device Used Yes (1 pt) Altered Elimination No (0 pt) Score/Fall Risk Level 3 or more points = High Risk Oriented to surroundings, Maintained a safe environment, Educated pt \\T\\ family on fall prevention, incl call for assistance when getting out of bed. Abuse screen: Denies threats or abuse. Nutritional screening: No deficits noted. Tuberculosis screening: No symptoms or risk factors identified. Assessment: 16:22 General: Appears uncomfortable, Behavior is anxious, crying. Pain: Complains of pain in mb9 abdomen Pain does not radiate. Pain currently is 10 out of 10 on a pain scale. Quality of pain is described as throbbing, Pain began gradually, Is intermittent. Neuro: Benites Agitation-Sedation Scale (RASS): 0 - Alert and Calm Level of Consciousness is awake, alert, obeys commands, Oriented to person, place, time, situation, Appropriate for age. Cardiovascular: Patient's skin is warm and dry. Respiratory: Airway is patent Respiratory effort is even, unlabored, Respiratory pattern is regular, symmetrical. GI: Abdomen is round obese, Bowel sounds present X 4 quads. Abd is soft Abdomen is tender to palpation X 4 quads. Reports nausea, vomiting. : No signs and/or symptoms were reported regarding the genitourinary system. EENT: No signs and/or symptoms were reported regarding the EENT system. Derm: Skin is pink, warm \\T\\ dry. Musculoskeletal: Range of motion: intact in all extremities. 17:02 Reassessment: Pt stated "I need my diaper changed, it is full, I have mucous coming out hb my ass continuously and it is full." Brief removed, pt clean and dry with no signs of mucous, stool, or urine. Pericare performed with pre moistened wipe and new brief placed on pt. Pt tolerated well. MD and primary nurse informed. Vital Signs: 16:01 BP 131 / 102; Pulse 89; Resp 18; Temp 97.7(TE); Pulse Ox 100% on R/A; Pain 5/10; hb 16:01 Pain Scale: Adult hb ED Course: 15:59 Patient arrived in ED. sb4 15:59 Humberto Townsend MD is Attending Physician. ec2 16:04 Triage completed. hb 16:05 Barb Rosa RN is Primary Nurse. mb9 16:08 Arm band placed on. hb 16:23 Placed in gown. Bed in low position. Call light in reach. Side rails up X 1. Provided mb9 Education on: press call light if needing anything. Client placed on continuous cardiac and pulse oximetry monitoring. NIBP monitoring applied. 16:23 Initial lab(s) drawn, by me, sent to lab. Maintain EMS IV. Dressing intact. Good blood mb9 return noted. Site clean \\T\\ dry. Gauge \\T\\ site: 20 g right hand. IV is patent, is intact, with fluids infusing freely, with good blood return, Flushed right hand. 16:[address] via stretcher. mb9 16:24 No provider procedures requiring assistance completed. mb9 16:34 CT Abd/Pelvis - Without Contrast In Process Unspecified. EDMS 17:12 Pako Cerna MD is Referral Physician. ec2 17:51 IV discontinued, intact, bleeding controlled, No redness/swelling at site. Pressure mb9 dressing applied. Administered Medications: 16:20 Drug: NS 0.9% IV 1000 ml IV at 1 bolus Per protocol; 1000 mL bolus Route: IV; Rate: 1 mb9 bolus; Site: right hand; 19:00 Follow up: Response: No adverse reaction; IV Status: Completed infusion mb9 16:20 Drug: diphenhydrAMINE IVP 12.5 mg IVP once Route: IVP; Site: right hand; mb9 17:15 Follow up: Response: No adverse reaction mb9 16:21 Drug: Droperidol IVP 2.5 mg IVP once Route: IVP; Site: right hand; mb9 17:15 Follow up: Response: No adverse reaction mb9 Medication: 16:24 VIS not applicable for this client. mb9 Outcome: 17:12 Discharge ordered by . ec2 17:51 Discharged to home via wheelchair, with family, mb9 17:51 Condition: stable 17:51 Discharge instructions given to patient, family, Instructed on discharge instructions, follow up and referral plans. Demonstrated understanding of instructions, follow-up care, 17:51 Patient left the ED. mb9 Signatures: Dispatcher [employer] EDRI Ruma Roman RN RN hb Brown, Sophia PAConor PAConor [email or web address] Barb Rosa RN RN mb9 Humberto Townsend MD MD ec2
--- NOTE | 2024-02-29 17:13 | EDPHYS ---
Physician Documentation [facility] Name: Lianne Medina Age: 53 yrs Sex: Female : 1970 Arrival Date: 02/29/2024 Time: 15:57 Bed 18 Private MD: ED Physician Humberto Townsend HPI: 02/28 16:01 This 53 yrs old Female presents to ER via Unassigned with complaints of ec2 Nausea/Vomiting. 16:01 Patient arrives today for evaluation of generalized abdominal pain along with nausea ec2 and vomiting. EMS picked patient up, reports that they gave her Zofran.. Historical: - Allergies: 16:04 Celecoxib; hb 16:04 cyclobenzaprine HCl; hb 16:04 CYCLOSPORINE; hb 16:04 divalproex; hb 16:04 Fentanyl; hb 16:04 levetiracetam; hb 16:04 Lorazepam; hb 16:04 Metoclopramide; hb 16:04 PENICILLINS; hb 16:04 PENTAZOCINE; hb 16:04 Phenytoin; hb 16:04 Prochlorperazine; hb 16:04 Sulfa (Sulfonamide Antibiotics); hb 16:04 TETRACYCLINES; hb 16:04 Tizanidine; hb 16:04 Toradol; hb 16:04 tramadol; hb - Home Meds: 16:04 albuterol sulfate 90 mcg/actuation Inhl HFA Aerosol Inhaler [Active]; atorvastatin 10 hb mg Oral tablet nightly [Active]; Breztri Aerosphere 160-9-4.8 mcg/actuation inhalation HFA Aerosol Inhaler 2 times per day [Active]; carvedilol 25 mg Oral tablet 2 times per day [Active]; dicyclomine 10 mg Oral capsule 3 times per day [Active]; esomeprazole magnesium 20 mg Oral capsule daily [Active]; fluticasone propionate 50 mcg/actuation intranasal spray daily [Active]; gabapentin 300 mg Oral capsule 3 caps 3 times per day [Active]; hydrocodone-acetaminophen 7.5-325 mg Oral tablet every 8 hours [Active]; ketoconazole 2 % Topical gel twice a day [Active]; linaclotide 72 mcg Oral capsule daily [Active]; montelukast 10 mg Oral tablet nightly [Active]; Mounjaro 10 mg/0.5 mL subcutaneous Pen Injector every week [Active]; multivitamin Oral tablet daily [Active]; nortriptyline 50 mg Oral capsule nightly [Active]; ondansetron 4 mg Oral Tablet [Active]; spironolactone 25 mg Oral tablet every 12 hours [Active]; phenazopyridine 100 mg Oral tablet 3 times per day [Active]; promethazine 25 mg Oral tablet [Active]; quetiapine 50 mg Oral tablet nightly [Active]; tizanidine 2 mg Oral tablet every 8 hours [Active]; - PMHx: 16:04 brain aneurysm; brain tumor x 5; Cancer; Multiple Sclerosis; prolapsed bladder; Hernia; hb - Immunization history:: Adult Immunizations up to date. - Infectious Disease History:: Denies. - Social history:: Smoking status: Patient denies any tobacco usage or history of. ROS: 16:01 Constitutional: as per hpi ec2 Exam: 16:01 Constitutional: GEN: NAD Head: atraumatic Eyes: EOMI Ears: External ears are ec2 normal. CV: regular rate LUNGS: no respiratory distress ABD: non-distended, soft, generally tender, not guarding, not rigid. SKIN: no evidence of rashes MSK: no evidence of trauma NEURO: moves all extremities equally Vital Signs: 16:01 BP 131 / 102; Pulse 89; Resp 18; Temp 97.7(TE); Pulse Ox 100% on R/A; Pain 5/10; hb 16:01 Pain Scale: Adult hb MDM: 15:59 Patient medically screened. ec2 16:01 Data reviewed: vital signs. ED course: Patient arrives today for generalized abdominal ec2 pain along with nausea and vomiting. Examination remarkable for well-appearing nontoxic and appears otherwise in no acute distress. Will obtain lab workup, CT imaging, treat the patient's symptoms. Differential includes gastritis, gastroenteritis, SBO. 17:03 ED course: Metabolic profile shows slight hypokalemia. Lipase within normal ranges. CT ec2 of the pelvis shows no acute intra-abdominal process. Will discharge home and have follow-up primary care. . 02/28 15:59 Order name: CBC with Diff; Complete Time: 16:46 ec2 02/28 15:59 Order name: CMP; Complete Time: 17:03 ec2 02/28 15:59 Order name: Lipase; Complete Time: 17:03 ec2 08/02 15:59 Order name: CT Abd/Pelvis - Without Contrast; Complete Time: 17:03 ec2 02/28 15:59 Order name: IV Saline Lock; Complete Time: 16:22 ec2 02/28 15:59 Order name: Labs collected and sent; Complete Time: 16:22 ec2 02/28 17:08 Order name: PO challenge; Complete Time: 17:15 ec2 Administered Medications: 16:20 Drug: NS 0.9% IV 1000 ml IV at 1 bolus Per protocol; 1000 mL bolus Route: IV; Rate: 1 mb9 bolus; Site: right hand; 19:00 Follow up: Response: No adverse reaction; IV Status: Completed infusion mb9 16:20 Drug: diphenhydrAMINE IVP 12.5 mg IVP once Route: IVP; Site: right hand; mb9 17:15 Follow up: Response: No adverse reaction mb9 16:21 Drug: Droperidol IVP 2.5 mg IVP once Route: IVP; Site: right hand; mb9 17:15 Follow up: Response: No adverse reaction mb9 Disposition Summary: 02/29/24 17:12 Discharge Ordered Notes: Location: Home ec2 Condition: Stable ec2 Diagnosis - Gastroparesis ec2 Followup: ec2 - With: Pako Cerna MD - When: - Reason: Recheck today's complaints Discharge Instructions: - Discharge Summary Sheet ec2 - Gastroparesis ec2 Forms: - Medication Reconciliation Form ec2 - Antibiotic Education ec2 - Prescription Opioid Use ec2 - Patient Portal Instructions ec2 - Leadership Thank You Letter ec2 Signatures: Dispatcher [employer] Ruma Mejia RN RN hb Wilkerson, Mary Beth, RN RN mb9 Humberto Townsend MD MD ec2 Corrections: (The following items were deleted from the chart) 16:00 16:00 CBC+H.LAB.BRZ ordered. EDMS EDMS 16:00 16:00 COMPREHENSIVE METABOLIC PANEL+C.LAB.BRZ ordered. EDMS EDMS 16:00 16:00 LIPASE+C.LAB.BRZ ordered. EDMS EDMS
[2024-02-29 21:16] VITALS: BP 131/102; TEMP 97.7; O2SAT 100
== END 2024-02-29 17:51 | disposition home or self-care (01) ==
LOC: ER 15:57
DX: K31.84 Gastroparesis (principal); R10.84 Generalized abdominal pain
CPT/HCPCS: 96361; 85025; 36415; 83690; 80053; 74176; 96375; 96374; 99285; J1200; J7030

== ENCOUNTER 2024-04-14 07:04 | Inpatient (IN) | payer OTHER ==
--- OUTSIDE RECORDS SUMMARY | 2024-04-14 07:07 | XMS REPORT | Clinical Summary ---
Author Name Unknown Organization [facility] Address [address] [place] [address] Care Team Providers Care Audit Director Name Role Phone Mingo Street MD Primary Care Provider Nomi Olea MD Unavailable [phone] Pedro Comer MD Unavailable Haresh Venegas MD Unavailable [email or web address] Magnolia Holden MD Unavailable Prince Abdoul AIRCRAFT AVIONICS TECHNICIAN Unavailable [phone] Darnell Wellington MD Unavailable [phone] Jossue Suresh Unavailable Mingo Street MD Unavailable [phone] Margarita Chaves PA Unavailable [phone] Kimber Mendoza MD Unavailable Cherrie Johnson AIRCRAFT AVIONICS TECHNICIAN Unavailable [phone] Tigist Morgan MD Unavailable Cleopatra Al MD Unavailable [phone] Allergies Active Allergy Reactions Criticality Noted [...] High 08/20/2021 Per patient throat closes up Minoa Analogues Other (See Comments) 01/21/20 16 Penicillins [...] Take by mouth. Active magnesium oxide-protein complex (Ft-Lgqh-Sxchmxk Complex) 133 mg tablet Take 4 tablets [...] 01/30/2017 Dysuria 01/30/2017 Tachycardia 01/30/2017 Hypoxia 01/30/2017 FDC current use of opiate analgesic 2016 Post-traumatic stress disorder 11/01/2016 Mild cognitive disorder 11/01/2016 Adjustment disorder with physical complaints 11/2016 Hyponatremia 10/31/2016 Melena 10/31/2016 Endometriosis 10/31/2016 Urinary tract infection 10/31/2016 Colitis 10/31/2016 Chronic pain syndrome 10/31/2016 Tobacco use 10/31/2016 Anemia of chronic disease 10/31/2016 Headache 10/31/2016 Abdominal pain, generalized 04/13/2016 Generalized anxiety disorder 04/13/2016 Surgical History Surgery Date Site/Laterality Comments BREAST RECONSTRUCTION SC ESOPHAGOGASTRODUODENOSCOP Y TRANSORAL DIAGNOSTIC 11/02/2016 Esophagus/N/A Procedure: DIAGNOSTIC UPPER GASTROINTESTINAL ENDOSCOPY; Surgeon: Apoorva Wen MD; Location: MAIN ENDOSCOPY; Service: GASTROENTEROLOGY SC COLONOSCOPY FLX DX W/JEANETTE J SPEC WHEN PFRMD 11/02/2016 N/A Procedure: DIAGNOSTIC FLEXIBLE COLONOSCOPY PROXIMAL TO SPLENIC FLEXURE; Surgeon: Apoorva Wen MD; Location: MAIN ENDOSCOPY; Service: GASTROENTEROLOGY COLONOSCOPY 07/30/1998 - 07/29/1999 EXPLORATORY LAPAROTOMY [id number] HYSTERECTOMY [id number] UPPER GASTROINTESTINAL ENDOSCOPY - 07/29/1999 Medical History Medical History Date Comments Stroke Seizure Myocardial infarction 1998 Hyperlipidemia Irregular heart beat Migraine 1982 Multiple sclerosis 1970 Traumatic brain injury 1541-1481 Allergic rhinitis [id number] Sinusitis 0057-8446 Difficulty talking 2016 Tooth disorder 2012 Swallowing problem 2003 Chronic bronchitis 8760-6624 Asbestosis 2291-5242 Pneumonia 2004 Gastric reflux 1987 Colitis [address] cheikh ve different diagnosis Celiac disease 2006 Malabsorption syndrome 1982 Diverticulitis [id number] Irritable bowel syndrome 1999 Renal stone 1981 History of recurrent urinary tract infection 1987 Urinary incontinence 1772-7396 Sexual dysfunction [id number] Abnormal uterine bleeding un related to menstrual cycle 8236-9225 Polycystic ovarian syndrome [address] Endometriosis 8831-4951 Dr Nahomi ramirez d endo had traveled to other organs,hips, sp Anemia 2008 Blood transfusion, without r eported diagnosis 1981 Size J, breast total reconst uction Osteoporosis 2009 Osteomyelitis 1994 Breake of wrist had to take antibiotics Anxiety 7317-8308 do not have anxi ety or panic attacks since 2003 Psoriasis 1968-current Endometrial carcinoma Cancer - 1 990's Multiple sclerosis 11/27/[address] Citlali reeves Neurologist in [place] (Pt reported) Family History Medical History Relation Name Comments -Other cancer Father Costa Alegria 1981-? Bone ca [email or web address] Hypertension Father Costa Alegria Melanoma Father [...] cancer Paternal Uncle Prashant -Unknown cancer Sister [facility] Graves' disease Sister [facility] Uterine cancer Sister [facility] Vaginal cancer Sister [facility] Relation Name Status Comments Father Costa Alegria Maternal Aunt Debbielynn Maternal Grandfather Prashant Diazp Mother Florence Paternal Aunt 1 Billysue Raji Paternal Aunt 2 Debbielynn Paternal Grandfather Demar Paternal Grandmother Hunt Paternal Uncle Prashant Sister [facility] Social History Tobacco Use Types Packs/Day Years Used Date Smoking Tobacco: Every Day Cigarettes 1.5 17.4 Started: 11/29/2006 Smokeless Tobacco: Never Tobacco Cessation:Ready to Q uit: No Alcohol Use Standard Drinks/Week Comments No 0 (1 standard drink = 0.6 oz pur e alcohol) Sex and Gender Information Value Date Recorded Sex Assigned at Female 11/22/2021 4:37 PM CDT Gender Identity Female 09/14/2021 3:07 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 PCP - General 09/29/15 Nomi Olea MD [address] [place] [id number] PCP - External Follow Up A 04/03/14 Pedro Comer MD [address] [facility] [address] [place] [address] PCP - External Follow Up B 04/20/14 Kimber Mendoza MD [address] [place] [phone] [email or web address] PCP - External Follow Up C Internal Medicine 11/08/21 Haresh Venegas MD [email or web address] Nurse Practitioner 10/06/15 Magnolia Holden MD [address] [place] [phone] [email or web address] Physician 10/06/15 Prince Schreiber APRN [address] [place] [phone] [email or web address] Nurse Practitioner 10/06/15 Darnell Wellington MD [address] [place] [phone] [email or web address] Physician 10/06/15 Jossue Suresh PA [address] [place] [phone] [email or web address] Physician [employer] Waste Chopper 10/06/[address] MD [address] [place] [phone] [email or web address] Physician 10/06/15 Margarita Chaves PA [address] [place] [phone] [email or web address] Physician [employer] Waste Chopper 10/06/15 Cherrie Johnson APRN [address] [place] [phone] [email or web address] Nurse Practitioner Cancer Prevention 09/16/21 Tigist Morgan MD [address] [place] [phone] [email or web address] Consulting Physician Dermatology 09/26/21 Cleopatra Al MD [address] [place] [phone] [email or web address] Consulting Physician Gynecological Oncology 12/07/16
[2024-04-14] MEDS ORDERED: NA CHLORIDE 0.9% 1,000 ML ONE (07:15)
[2024-04-14] MEDS ORDERED: FAMOTIDINE 20 MG/2 ML VIAL IV ONE (07:15)
[2024-04-14 07:38] LABS: Absolute Basophils 0.1 K/uL (0-0.5); Absolute Lymphocytes (CBC) 2.8 K/uL (0.7-4.9); Absolute Monocytes 0.8 K/uL (0.1-1.3); Absolute Neutrophil 10.2 K/uL (1.8-8.0); Basophils % 0.4 % (0-1.3); Hematocrit 42.5 % (36.0-45.0); Hemoglobin 13.8 g/dL (12.0-15.0); Lymphocytes % 20.1 % (15.3-44.8); MCH 28.8 pg (27.0-35.0); MCHC 32.4 g/dL (32.0-36.0); MPV 8.1 fL (7.6-11.3); Monocytes % 5.8 % (3.3-12.3); Neutrophils % 73.7 % (41.7-73.7); Platelets 254 thou/uL (152-406); RBC Red Blood Cell Count 4.78 M/uL (3.86-4.86); Red Cell Distribution Width 16.8 % (12.1-15.2)
[2024-04-14 07:55] LABS: Albumin/Globulin Ratio 0.7 (1.1-1.8); Anion Gap 9.5 mEq/L (5.0-15.0); Bilirubin Total 0.6 mg/dL (0.2-1.0); Globulin 4.4 g/dL (2.3-3.5); Protein, Total 7.4 g/dL (6.4-8.2)
[2024-04-14 07:59] LABS: Potassium 2.5 mEq/L (3.5-5.1)
[2024-04-14] MEDS ORDERED: KCL 20 MEQ/100 mL IVPB 100 ML IV ONE (08:39)
[2024-04-14] MEDS ORDERED: NA CHLORIDE 0.9% 500 ML ONE (08:43)
[2024-04-14] MEDS ORDERED: ONDANSETRON 4 MG/2 ML VIAL ONE ×3 (09:56→16:09)
[2024-04-14 10:15] LABS: Sqamous Epithelial <5 /HPF (None Seen); Urine Bacteria None Seen /HPF (<20); Urine Bilirubin NEGATIVE (Negative); Urine Blood Negative (Negative); Urine Clarity Clear (Clear); Urine Color Light-Yellow (Yellow); Urine Culture Reflex Order NOT NEEDED; Urine Glucose NEGATIVE (Negative); Urine Ketones TRACE (Negative); Urine Microscopic Reflex YN ORDER UMIC; Urine Mucus 1+ /HPF (None Seen); Urine Nitrite NEGATIVE (Negative); Urine Protein 1+ (Negative); Urine RBC <5 /HPF (None Seen); Urine Urobilinogen Normal (Normal); Urine WBC <5 /HPF (<5); Urine pH 8.5 (5.0-7.0)
[2024-04-14 10:18] LABS: Specific Gravity > 1.030 (1.005-1.030)
--- NOTE | 2024-04-14 10:31 | EDPHYS ---
Physician Documentation [facility] Name: Lianne Medina Age: 53 yrs Sex: Female : 1970 Arrival Date: 04/14/2024 Time: 07:04 Bed 20 Private MD: ED Physician Barney Ventura HPI: 04/14 07:28 This 53 yrs old Female presents to ER via EMS with complaints of Nausea/Vomiting. rn 07:28 The patient presents to the emergency department with nausea, vomiting, diarrhea, rn abdominal pain. Onset: The symptoms/episode began/occurred 3 day(s) ago. Possible causes: unknown. The symptoms are aggravated by nothing. The symptoms are alleviated by nothing. Associated signs and symptoms: Pertinent positives: abdominal pain, diarrhea, nausea, vomiting, Pertinent negatives: fever, GI bleeding. Severity of symptoms: At their worst the symptoms were moderate in the emergency department the symptoms are unchanged. The patient has experienced similar episodes in the past. Historical: - Allergies: 07:09 levetiracetam; rs5 07:09 Lorazepam; rs5 07:09 Metoclopramide; rs5 07:09 PENICILLINS; rs5 07:09 PENTAZOCINE; rs5 07:09 Phenytoin; rs5 07:09 Prochlorperazine; rs5 07:09 Sulfa (Sulfonamide Antibiotics); rs5 07:09 TETRACYCLINES; rs5 07:09 Tizanidine; rs5 07:09 Toradol; rs5 07:09 tramadol; rs5 07:09 CYCLOSPORINE; rs5 07:09 cyclobenzaprine HCl; rs5 07:09 Celecoxib; rs5 07:09 divalproex; rs5 07:09 Fentanyl; rs5 - PMHx: 07:09 brain tumor x 5; Cancer; Hernia; brain aneurysm; Multiple Sclerosis; prolapsed bladder; rs5 - PSHx: 07:04 None; rs5 - Immunization history:: Adult Immunizations unknown. - Infectious Disease History:: Denies. - Social history:: Smoking status: Patient denies any tobacco usage or history of. - Family history:: not pertinent. - Hospitalizations: : No recent hospitalization is reported. ROS: 07:28 Constitutional: Negative for fever, chills, and weight loss, Cardiovascular: Negative rn for chest pain, palpitations, and edema, Respiratory: Negative for shortness of breath, cough, wheezing, and pleuritic chest pain, Abdomen/GI: Positive for abdominal pain with nausea/vomiting/diarrhea Back: Negative for injury and pain, : Negative for injury, bleeding, discharge, and swelling, MS/Extremity: Negative for injury and deformity, Skin: Negative for injury, rash, and discoloration, Neuro: Positive for generalized weakness Exam: 07:28 Constitutional: This is a well developed, well nourished patient who is awake, alert, rn uncomfortable and retching without emesis Head/Face: Normocephalic, atraumatic. ENT: Dry mucous membranes Abdomen/GI: Soft, tender left lower quadrant and mid abdominal region Neuro: Awake and alert, GCS 15 Vital Signs: 07:07 BP 155 / 81; Pulse 79; Resp 17; Temp 98(O); Pulse Ox 98% ; rs5 08:10 BP 135 / 88; Pulse 82; Resp 17; Pulse Ox 99% on R/A; rs5 10:02 BP 147 / 84; Pulse 80; Resp 17; Pulse Ox 98% on R/A; rs5 11:30 BP 133 / 82; Pulse 69; Pulse Ox 98% on R/A; rs5 MDM: 07:10 Patient medically screened. rn 10:27 Differential diagnosis: Nonspecific abd pain, gastritis, viral gastroenteritis, rn gastroenteritis, gastroparesis. Data reviewed: vital signs, nurses notes, lab test result(s), radiologic studies, and as a result, I will admit patient. Consideration of Admission/Observation Patient was admitted/placed on observation. Escalation of care including admission/observation considered. Counseling: I had a detailed discussion with the patient and/or guardian regarding the historical points, exam findings, and any diagnostic results supporting the discharge/admit diagnosis, lab results, radiology results, the need for further work-up and treatment in the hospital. Response to treatment: There is no appreciated change of the patient's symptoms at this time. ED course: Patient with intractable vomiting, potassium 3.5, generalized weakness on top of her MS. CT shows enteritis. Will admit to hospitalist service for further care.. 04/14 07:11 Order name: CBC with Diff; Complete Time: 08:33 rn 04/14 07:11 Order name: CMP; Complete Time: 08:33 rn 04/14 07:11 Order name: Lipase; Complete Time: 08:33 rn 04/14 07:11 Order name: Urinalysis w/ reflexes; Complete Time: 10:20 rn 04/14 07:11 Order name: CT Abd/Pelvis - IV Contrast Only rn 04/14 07:12 Order name: IV Saline Lock; Complete Time: 07:46 rn 04/14 07:12 Order name: Labs collected and sent; Complete Time: 07:46 rn Administered Medications: 07:46 Drug: NS 0.9% IV 1000 ml IV at 1 bolus Per protocol; 1000 mL bolus Route: IV; Rate: 1 rs5 bolus; Site: right antecubital; 08:55 Follow up: Response: No adverse reaction; IV Status: Completed infusion rs5 07:46 Drug: Famotidine IVP 20 mg IVP once; dilute with 10 mL 0.9% NaCl; give over 2 minutes rs5 Route: IVP; Site: right antecubital; 08:10 Follow up: Response: No adverse reaction rs5 07:46 Drug: Droperidol IVP 0.625 mg IVP once Route: IVP; Site: right antecubital; rs5 08:05 Follow up: Response: No adverse reaction rs5 08:49 Drug: Potassium Chloride IV 20 mEq IV at calculated rate once; administer over 1-2 rs5 hours Route: IV; Rate: calculated rate; Site: right antecubital; 09:10 Follow up: Response: No adverse reaction rs5 09:40 Drug: Ondansetron IVP 4 mg IVP once; over 2 minutes Route: IVP; Site: right antecubital;rs5 10:05 Follow up: Response: No adverse reaction; Nausea is decreased rs5 16:05 Drug: Ondansetron IVP 4 mg IVP once; over 2 minutes Route: IVP; Site: right antecubital;rs5 16:20 Follow up: Response: No adverse reaction rs5 Disposition Summary: 04/14/24 10:31 Hospitalization Ordered Notes: Hospitalization Status: Inpatient Admission rn Provider: Mingo Ventura rn Condition: Stable rn Problem: new rn Symptoms: are unchanged rn Bed/Room Type: Standard rn Location: Telemetry/MedSurg (Inpatient)(04/14/24 15:22) [facility] Room Assignment: 223(04/14/24 15:24) ja1 Diagnosis - Intractable Vomiting rn - Noninfective gastroenteritis and colitis, unspecified rn - Gastroparesis rn - Hypokalemia rn Forms: - Medication Reconciliation Form rn - SBAR form rn - Leadership Thank You Letter rn Signatures: Dispatcher [employer] EDMS Barney Ventura MD MD rn Aguilar, Jose, RN RN [email or web address] Yimi Ruelas RN RN rs5 Corrections: (The following items were deleted from the chart) 07:12 07:12 CBC+H.LAB.BRZ ordered. EDMS EDMS 07:12 07:12 COMPREHENSIVE METABOLIC PANEL+C.LAB.BRZ ordered. EDMS EDMS 07:12 07:12 LIPASE+C.LAB.BRZ ordered. EDMS EDMS 07:12 07:12 Urinalysis+U.LAB.BRZ ordered. EDMS EDMS 15:20 10:31 Telemetry/MedSurg (Inpatient) rn [email or web address] 15:20 10:31 rn [email or web address] 15:22 15:20 BR ER HOLD ja1 ja1 15:22 15:20 ERHOLD- ja1 ja1 15:24 15:22 [address] [place] [address]
--- NOTE | 2024-04-14 10:31 | ER ---
Nurse's Notes [facility] Name: Lianne Medina Age: 53 yrs Sex: Female : 1970 Arrival Date: 04/14/2024 Time: 07:04 Bed 20 Private MD: Diagnosis: Intractable Vomiting;Noninfective gastroenteritis and colitis, unspecified;Gastroparesis;Hypokalemia Presentation: 04/14 07:07 Chief complaint: EMS states: Continuous N/V since colonoscopy on Sunday. Coronavirus rs5 screen: At this time, the client does not indicate any symptoms associated with coronavirus-19. Ebola Screen: No symptoms or risks identified at this time. Initial Sepsis Screen: Does the patient meet any 2 criteria? No. Patient's initial sepsis screen is negative. Does the patient have a suspected source of infection? No. Patient's initial sepsis screen is negative. Risk Assessment: Do you want to hurt yourself or someone else? Patient reports no desire to harm self or others. Onset of symptoms was April 11, 2024. 07:07 Method Of Arrival: EMS: [facility] rs5 07:07 Acuity: BRANDEN 3 rs5 Triage Assessment: 07:09 General: Appears distressed, uncomfortable, Behavior is cooperative, anxious. Pain: rs5 Complains of pain in abdomen. GI: Reports nausea, vomiting. Historical: - Allergies: 07:09 levetiracetam; rs5 07:09 Lorazepam; rs5 07:09 Metoclopramide; rs5 07:09 PENICILLINS; rs5 07:09 PENTAZOCINE; rs5 07:09 Phenytoin; rs5 07:09 Prochlorperazine; rs5 07:09 Sulfa (Sulfonamide Antibiotics); rs5 07:09 TETRACYCLINES; rs5 07:09 Tizanidine; rs5 07:09 Toradol; rs5 07:09 tramadol; rs5 07:09 CYCLOSPORINE; rs5 07:09 cyclobenzaprine HCl; rs5 07:09 Celecoxib; rs5 07:09 divalproex; rs5 07:09 Fentanyl; rs5 - PMHx: 07:09 brain tumor x 5; Cancer; Hernia; brain aneurysm; Multiple Sclerosis; prolapsed bladder; rs5 - PSHx: 07:04 None; rs5 - Immunization history:: Adult Immunizations unknown. - Infectious Disease History:: Denies. - Social history:: Smoking status: Patient denies any tobacco usage or history of. - Family history:: not pertinent. - Hospitalizations: : No recent hospitalization is reported. Screenin:11 [facility] ED Fall Risk Assessment (Adult) History of falling in the last 3 months, rs5 including since admission No falls in past 3 months (0 pts) Confusion or Disorientation No (0 pts) Intoxicated or Sedated Yes (3 pts) Impaired Gait Yes (1 pt) Mobility Assist Device Used Yes (1 pt) Altered Elimination No (0 pt) Score/Fall Risk Level 3 or more points = High Risk Oriented to surroundings, Maintained a safe environment. Abuse screen: Denies threats or abuse. Nutritional screening: No deficits noted. Tuberculosis screening: No symptoms or risk factors identified. Assessment: 07:07 General: Appears distressed, uncomfortable, Behavior is cooperative, anxious. Pain: rs5 Complains of pain in abdomen Pain currently is 6 out of 10 on a pain scale. Quality of pain is described as burning, Is continuous. Neuro: Level of Consciousness is awake, alert, obeys commands, Oriented to person, place, time, situation. Cardiovascular: Patient's skin is warm and dry. Respiratory: Airway is patent Respiratory effort is even, unlabored, Respiratory pattern is regular, symmetrical. GI: Abdomen is round non-distended, Abd is soft and non tender X 4 quads. Reports nausea, vomiting. : No signs and/or symptoms were reported regarding the genitourinary system. EENT: No signs and/or symptoms were reported regarding the EENT system. Derm: Skin is intact, Skin is pink, warm \\T\\ dry. Musculoskeletal: Range of motion: intact in all extremities. 08:02 Reassessment: Patient and/or family updated on plan of care and expected duration. Pain rs5 level reassessed. Patient is alert, oriented x 3, equal unlabored respirations, skin warm/dry/pink. lab called to report lab alert potassium 2.5, provider notified. General: Behavior is calm, cooperative. 09:05 Reassessment: No changes from previously documented assessment. rs5 10:10 Reassessment: Patient and/or family updated on plan of care and expected duration. Pain rs5 level reassessed. Patient is alert, oriented x 3, equal unlabored respirations, skin warm/dry/pink. 11:22 Reassessment: Patient and/or family updated on plan of care and expected duration. Pain rs5 level reassessed. Patient is alert, oriented x 3, equal unlabored respirations, skin warm/dry/pink. 11:42 Reassessment: No changes from previously documented assessment. rs5 Vital Signs: 07:07 BP 155 / 81; Pulse 79; Resp 17; Temp 98(O); Pulse Ox 98% ; rs5 08:10 BP 135 / 88; Pulse 82; Resp 17; Pulse Ox 99% on R/A; rs5 10:02 BP 147 / 84; Pulse 80; Resp 17; Pulse Ox 98% on R/A; rs5 11:30 BP 133 / 82; Pulse 69; Pulse Ox 98% on R/A; rs5 ED Course: 07:06 Patient arrived in ED. rs5 07:09 Triage completed. rs5 07:10 Barney Ventura MD is Attending Physician. rn 07:11 Patient has correct armband on for positive identification. Placed in gown. Bed in low rs5 position. Call light in reach. Side rails up X2. 07:11 No provider procedures requiring assistance completed. rs5 07:20 Inserted saline lock: 24 gauge in right antecubital area, using aseptic technique. rs5 Blood collected. Flushed with 10 mL NS. 07:46 Yimi Ruelas, RN is Primary Nurse. rs5 08:11 CT Abd/Pelvis - IV Contrast Only In Process Unspecified. EDMS 10:30 Mingo Ventura MD is Hospitalizing Provider. rn 11:41 Patient admitted, IV remains in place. rs5 12:11 1211 CM met with Mrs. Medina and her daughter Seema at the bedside in the ED exam ane room. Patient identified by name and . Demographic sheet confirmed. Patient states she in a lot of pain and asked if it would be ok if Seema answers most questions. Seema states patietnlives with her and patient's Mikey in a single story home with a wheelchair ramp. She states that prior to admission, patient performs ADLs independently using a wheelchair. Other DME in the home, includes a shower chair and an oxygen concentrator through [facility], for which the patient uses only when "she feels like she needs it" at 3L. No MPOA in place, no HH, or other medical services at this time. Patient's preferred plan is to return home upon discharge. Seema Jensen can transport Mrs. Medina home upon discharge. CM team will continue to follow and coordinate care. Administered Medications: 07:46 Drug: NS 0.9% IV 1000 ml IV at 1 bolus Per protocol; 1000 mL bolus Route: IV; Rate: 1 rs5 bolus; Site: right antecubital; 08:55 Follow up: Response: No adverse reaction; IV Status: Completed infusion rs5 07:46 Drug: Famotidine IVP 20 mg IVP once; dilute with 10 mL 0.9% NaCl; give over 2 minutes rs5 Route: IVP; Site: right antecubital; 08:10 Follow up: Response: No adverse reaction rs5 07:46 Drug: Droperidol IVP 0.625 mg IVP once Route: IVP; Site: right antecubital; rs5 08:05 Follow up: Response: No adverse reaction rs5 08:49 Drug: Potassium Chloride IV 20 mEq IV at calculated rate once; administer over 1-2 rs5 hours Route: IV; Rate: calculated rate; Site: right antecubital; 09:10 Follow up: Response: No adverse reaction rs5 09:40 Drug: Ondansetron IVP 4 mg IVP once; over 2 minutes Route: IVP; Site: right antecubital;rs5 10:05 Follow up: Response: No adverse reaction; Nausea is decreased rs5 16:05 Drug: Ondansetron IVP 4 mg IVP once; over 2 minutes Route: IVP; Site: right antecubital;rs5 16:20 Follow up: Response: No adverse reaction rs5 Medication: 07:12 VIS not applicable for this client. rs5 Outcome: 10:31 Decision to Hospitalize by Provider. rn 11:41 Admitted to ER Hold. Please see [facility] for further documentation. rs5 11:41 Condition: stable 11:41 Instructed on the need for admit, Demonstrated understanding of instructions, 16:46 Patient left the ED. cc6 Signatures: Dispatcher [employer] EDMS Barney Ventura MD MD rn Sotelo, Ricky, RN RN rs5 Kathy Mike cc6 David, Jennifer, RN RN ane Corrections: (The following items were deleted from the chart) 16:34 11:30 BP 133 / 82; Pulse 16bpm; Pulse Ox 98% RA; rs5 rs5
[2024-04-14] MEDS: D5.45NS W/KCL 20MEQ 1,000 ML IV SCH (11:19)
[2024-04-14] MEDS ORDERED: SODIUM CHLORIDE 0.9% 10ML INJ IV PRN (11:19)
[2024-04-14] MEDS: ONDANSETRON 4 MG/2 ML VIAL IV PRN (11:49)
--- NOTE | 2024-04-14 14:32 | P.HP ---
Certification for Inpatient Patient admitted to: Inpatient With expected LOS: >2 Midnights Patient will require the following post-hospital care: None Practitioner: I am a practitioner with admitting privileges, knowledge of patient current condition, hospital course, and medical plan of care. Services: Services provided to patient in accordance with Admission requirements found in Title 42 Section 412.3 of the Code of Federal Regulations Patient History Date of Service: 04/14/24 Reason for admission: Enteritis, intractable vomiting, hypokalemia History of Present Illness: 53-year-old female with history of hypertension, MS, GERD, COPD, IBS-C, questionable history of gastroparesis presents to the emergency department for chief complaint of nausea/vomiting/diarrhea. She reports that she had a colonoscopy/EGD Sunday and she did a 3-day prep prior to that. During the 3-day prep she was experiencing nausea vomiting diarrhea and it persisted after the scopes. She reports that it did not find a thing on the EGD that she is aware of and they did multiple biopsies from the colonoscopy but no other findings were reported to her. Dr. Espinosa is her senior care assistant. Today she came to the emergency department because she was still not tolerating anything by mouth having frequent vomiting and diarrhea. Her labs were significant for severe hypokalemia with a potassium of 2.5 with blood cell count 13.[address] scan showing enteritis. Patient be admitted to the hospital for further management of intractable nausea vomiting and diarrhea as well as enteritis and hypokalemia Allergies Penicillins Allergy (Severe, Verified 02/12/24 11:31) anaphalxis cyclobenzaprine HCl [From Flexeril] Allergy (Intermediate, Verified 02/12/24 11:31) sob Sulfa (Sulfonamide Antibiotics) [Sulfa(Sulfonamide Antibiotics)] Allergy (Intermediate, Verified 02/12/24 11:31) anaphalxis tramadol HCl [From Ultram] Allergy (Intermediate, Verified 02/12/24 11:31) hives, sob tetracycline [Tetracycline] Allergy (Mild, Verified 02/12/24 11:31) anaphalyxis celecoxib Allergy (Verified 02/12/24 11:31) Unknown levetiracetam Allergy (Verified 02/12/24 11:31) Unknown lorazepam Allergy (Verified 02/12/24 11:31) Unknown CYCLOSPORINE Allergy (Mild, Uncoded 02/12/24 11:31) Anaphylaxis divalproex Allergy (Mild, Uncoded 02/12/24 11:31) Unknown METOCLOPRAMIDE Adverse Reaction (Mild, Uncoded 02/12/24 11:31) Unknown Home Medications: Promethazine HCl 1 tab PO Q12HR PRN 04/03/18 Atorvastatin Calcium 10 mg PO DAILY 08/04/22 Gabapentin 300 mg PO TID 08/04/22 Montelukast [Singulair*] 10 mg PO DAILY 08/04/22 Ondansetron [Zofran (Odt)*] 4 mg PO Q8H PRN 08/04/22 Budesonide/Glycopyr/Formoterol [Breztri Aerosphere Inhaler] 2 puff IH BID 08/21/23 Magnesium Chloride [Slow-Mag*] 64 mg PO DAILY #15 tab 08/21/23 Potassium Chloride 10 meq PO DAILY #30 tab 08/21/23 Spironolactone [Aldactone*] 25 mg PO BID #60 tab 08/21/23 Tizanidine HCl 2 mg PO Q8H 08/21/23 Esomeprazole Magnesium [Nexium 24Hr] 20 mg PO BREAKFAST 11/24/23 Hydrocodone/Acetaminophen [Hydrocodone-Acetamin 7.5-325] 1 tab PO Q8HR 11/24/23 Lidocaine 4% Patch [Lidoderm 5% Patch*] 1 patch TD DAILY 11/24/23 Linaclotide [Linzess] 1 cap PO DAILY PRN 11/24/23 Nortriptyline HCl [Pamelor] 50 mg PO BEDTIME 11/24/23 Quetiapine Fumarate [Seroquel] 50 mg PO BEDTIME 11/24/23 Tirzepatide [Mounjaro] 10 mg SQ EVERY 7TH DAY 11/24/23 Erythromycin Ethylsuccinate [E.e.s. 200] 2.5 ml PO ACHS 28 Days #140 ml 11/28/23 Nystatin Powder [Mycostatin (Powder)*] 15 appl TOP BID 7 Days #1 btl 11/28/23 Sucralfate 10 ml PO ACHS #420 ml 11/28/23 Albuterol Sulfate [Ventolin Hfa] 2 puff IH Q6HP PRN 02/12/24 Carvedilol [Coreg] 25 mg PO BID 02/12/24 Dicyclomine HCl 10 mg PO TID PRN 02/12/24 Fluticasone Propionate 2 spray NS DAILY 02/12/24 Ibuprofen 400 mg PO Q4HP PRN 02/12/24 Ketoconazole [Nizoral Cream] 1 appl TOP BID 02/12/24 Multivitamins with Iron 1 each PO DAILY 02/12/24 Mupirocin 1 gm TP BID 02/12/24 Phenazopyridine HCl [Pyridium] 100 mg PO TID PRN 02/12/24 Potassium Chloride 20 meq PO DAILY 02/12/24 - Past Medical/Surgical History Has patient received pneumonia vaccine in the past: No Diabetic: No -: cancer -: prlapsed bladder -: brain tumor x 5 -: MS -: IBSC -: Multiple abdominal surgeriesendometriosis -: -: Breast reconstruction Psychosocial/ Personal History: Patient is disabled, lives at home with her /daughter. - Family History Father -: Hypertension Mother -: Other (see notes) Notes: thyroid problems - Social History Smoking Status: Never smoker Alcohol use: No CD- Drugs: No Caffeine use: Yes Place of Residence: Home Review of Systems 10-point ROS is otherwise unremarkable Gastrointestinal: Nausea, Vomiting, Abdominal Pain, Diarrhea Physical Examination - Physical Exam General: Alert, In no apparent distress, Oriented x3, Obese HEENT: Atraumatic, PERRLA, EOMI Neck: Supple, 2+ carotid pulse no bruit, No LAD, Without JVD or thyroid abnormality Respiratory: Clear to auscultation bilaterally, Normal air movement Cardiovascular: Regular rate/rhythm, Normal S1 S2 Gastrointestinal: Normal bowel sounds, Tenderness (Moderate right upper quadrant and right lower quadrant abdominal tenderness) Musculoskeletal: No tenderness Integumentary: No rashes Neurological: Normal speech, Normal strength at 5/5 x4 extr - Studies Laboratory Data (last 24 hrs) 04/14/24 04/14/24 07:30 07:30 WBC 13.90 H Hgb 13.8 Hct 42.5 Plt Count 254 Sodium 140 Potassium 2.5 L* BUN 6 L Creatinine 0.74 Glucose 105 Total Bilirubin 0.6 AST 26 ALT 28 Alkaline Phosphatase 104 Lipase 14 Assessment and Plan - Plan Assessment: Intractable nausea/vomiting/diarrhea Enteritis History of IBS-C Possible history of gastroparesis Diabetes mellitus type [id number] Hypertension GERD COPD Multiple sclerosis Plan: Intractable nausea/vomiting/diarrhea Enteritis History of IBS-C Possible history of gastroparesis Recent EGD/colonoscopy with Dr. Francisca Ibarra likely contributing to this episode Continue antibiotics Cipro/Flagyl N.p.o., advance as tolerated Twice daily PPI Allergic to Reglan-reports she may have had a gastric emptying study in the year [address] Shen Considered gastric emptying study when patient is tolerating p.o. In October patient was admitted here for similar complaint and treated with sucralfate, erythromycin prior to discharge Diabetes mellitus type [id number] ACHS Accu-Chek, sliding scale insulin Hypertension GERD COPD Multiple sclerosis Continue home medications when verified DVT PPX: Lovenox Code status: Full Discharge Plan: Home Plan to discharge in: Greater than 2 days - Advance Directives Does patient have a Living Will: No Does patient have a Durable POA for Healthcare: No - Code Status/Comfort Care Code Status Assessed: Yes (Full code) Critical Care: No Time Spent Managing Pts Care (In Minutes): 64
[2024-04-14] MEDS ORDERED: PROMETHAZINE INJ 25 MG/ML AMP ONE (14:53)
[2024-04-14] MEDS: ENOXAPARIN 40 MG/0.4 ML SQ SCH (15:00)
[2024-04-14] MEDS: CIPROFLOXACIN 400mg IV 400 MG/200 ML BAG IV SCH (15:00)
[2024-04-14] MEDS ORDERED: MORPHINE 2 MG/ML SYR IV PRN (15:08)
[2024-04-14] MEDS ORDERED: MORPHINE 2 MG/ML SYR ONE (15:16)
[2024-04-14] MEDS: PROMETHAZINE INJ 25 MG/ML AMP IV PRN (15:19)
[2024-04-14] MEDS ORDERED: D5.45NS W/KCL 20MEQ 1,000 ML IV ONE (16:07)
[2024-04-14 17:31] VITALS: O2SAT 98
[2024-04-14] MEDS: METRONIDAZOLE 500mg IVPB 500 MG/100 ML BAG IV SCH (17:37)
--- NOTE | 2024-04-14 18:20 | RAD REPORT ---
CT abdomen and pelvis with contrast TECHNIQUE: Axial images were taken through the abdomen and pelvis after the administration of IV cont rast. All CT scans at this facility use dose modulation, iterative reconstruction, and/or weight based dosing when appropriate t o reduce radiation dose to as low as reasonably achievable HISTORY: vomiting, recent colonoscopy;Abd pain COMPARISON:02/29/2024 FINDINGS: Lung bases: The lung bases appear unremarkable. ABDOMEN: There is diffuse fatty infiltration of the liver. There is no evidence for mass or intrahepatic bilia ry ductal dilatation. The gallbladder appears unremarkable. There is no evidence for gallbladder wall thickening or pericholecystic fluid. The adrenal glands are normal. The pancreas is normal without ductal dilatation. The spleen is normal. The kidneys appear unremarkab le. There is no evidence for hydronephrosis or stone. There are several distended fluid-filled loops of small bowel in the left hemiabdomen with wall hyper enhancement. There is no evidence for obstruction. Apparent wall thickening in the right hemicolon is likely due to underdiste ntion. The appendix is identified and is normal. Pelvis: There is atherosclerotic disease seen within the aorta. There is no aneurysm or dissection. There is no pathologically enlarged adenopathy. The bladder appears unremarkable. There is no free air or free fluid Status post hysterectomy. Mild arthrosis. No acute osseous abnormality. Impression: 1. Several distended fluid-filled loops of small bowel in the left hemiabdomen with wall hyperenhance ment. Findings are suggestive of enteritis. 2. Hepatic steatosis. Electronically signed by: Andrew Rdz MD 04/14/2024 09:18 AM CDT Due to temporary technical issues with PACS / Fluency reporting system, reports are being signed by t he in-house radiologist without review as a courtesy to ensure prompt reporting. The interpreting radiologist is fully responsible for the content of the report. Transcribed Date/Time: 04/14/2024 6:20 PM
[2024-04-14] MEDS: MORPHINE 2 MG/ML SYR IV PRN (19:47)
[2024-04-14] MEDS: PANTOPRAZOLE 40 MG INJ IVP SCH (19:47)
[2024-04-14 20:58] LABS: Anion Gap 7.4 mEq/L (5.0-15.0); Magnesium 1.3 mg/dL (1.6-2.4); Phosphorus 2.9 mg/dL (2.5-4.9)
[2024-04-14 20:59] LABS: Potassium 2.4 mEq/L (3.5-5.1)
[2024-04-14] MEDS: NA CHLORIDE 0.9% 250 ML ONE (22:32)
[2024-04-14] MEDS: KCL 20 MEQ/100 mL IVPB 20 MEQ/100 ML BAG IV SCH (22:38)
[2024-04-14] MEDS: Magnesium Sulfate 2gm IVPB 2 G/50 ML BAG IV ONE (23:12)
[2024-04-15 06:45] LABS: Absolute Monocytes 0.7 K/uL (0.1-1.3); Absolute Neutrophil 4.4 K/uL (1.8-8.0); Basophils % 0.3 % (0-1.3); Eosinophils % 0.2 % (0-4.4); Hematocrit 35.3 % (36.0-45.0); Hemoglobin 11.5 g/dL (12.0-15.0); Lymphocytes % 43.6 % (15.3-44.8); MCH 29.1 pg (27.0-35.0); MCHC 32.7 g/dL (32.0-36.0); Monocytes % 7.9 % (3.3-12.3); Nucleated Red Blood Cells % 0.1 % (0-0); Platelets 194 thou/uL (152-406); RBC Red Blood Cell Count 3.96 M/uL (3.86-4.86); Red Cell Distribution Width 16.8 % (12.1-15.2)
[2024-04-15 07:07] LABS: Albumin 2.4 g/dL (3.4-5.0); Albumin/Globulin Ratio 0.8 (1.1-1.8); Anion Gap 7.9 mEq/L (5.0-15.0); Bilirubin Total 0.4 mg/dL (0.2-1.0); Globulin 3.2 g/dL (2.3-3.5); Magnesium 2.4 mg/dL (1.6-2.4); Phosphorus 2.1 mg/dL (2.5-4.9); Potassium 2.9 mEq/L (3.5-5.1); Protein, Total 5.6 g/dL (6.4-8.2); Thyroid Stimulating Hormone 2.99 uIU/mL (0.358-3.740)
[2024-04-15] MEDS: KCL 20 MEQ/100 mL IVPB 20 MEQ/100 ML BAG IV SCH (08:42)
[2024-04-15] MEDS: NA CHLORIDE 0.9% 1,000 ML ONE (11:39)
[2024-04-15] MEDS: SUCRALFATE 1GM/10ML UCUP PO SCH (13:03)
[2024-04-15] MEDS: GABAPENTIN 300 MG CAP PO SCH (14:05)
[2024-04-15] MEDS: POTASSIUM PHOS IN 0.9 % NACL 15 MMOL/250 ML BAG IV ONE (14:05)
--- NOTE | 2024-04-15 15:03 | P.PN ---
Date of Service: 04/15/24 Subjective Awake feeling ill C/o abdominal pain and nausea, although nausea has improved some. ROS 10 point ROS as noted above, otherwise negative Physical Exam General: Alert and Oriented x3, NAD, Obese HEENT: Atraumatic, PERRLA, EOMI Neck: Supple, 2+ carotid pulse no bruit, No LAD, Without JVD or thyroid abnormality Respiratory: Clear to auscultation bilaterally, Normal air movement, on Room air Cardiovascular: RRR, Normal S1 S2, no murmur noted Gastrointestinal: Normal bowel sounds, distended (obese),Tenderness (Moderate right upper quadrant and right lower quadrant abdominal tenderness) Musculoskeletal: No tenderness Integumentary: No rashes Neurological: Normal speech, Normal strength at 5/5 x4 extr Vitals Reviewed Problem list Intractable nausea/vomiting/diarrhea Enteritis History of IBS-C Possible history of gastroparesis Diabetes mellitus type [id number] Hypertension GERD COPD Multiple sclerosis Assessment and Plan Intractable nausea/vomiting/diarrhea Enteritis History of IBS-C Possible history of gastroparesis Hypokalemia Recent EGD/colonoscopy with Dr. Francisca Ibarra likely contributing to this episode Continue antibiotics Cipro/Flagyl CLD, tolerated ice chips Twice daily PPI and carafate QID Allergic to Reglan-reports she may have had a gastric emptying study in the year [address] Shen Considered gastric emptying study when patient is tolerating p.o. In October patient was admitted here for similar complaint and treated with sucralfate, erythromycin prior to discharge K 2.5/2.4/2.9- monitor and replace PRN Diabetes mellitus type [id number]-icznxep-nhsjqlaqi ACHS Accu-Chek, sliding scale insulin Hypertension GERD COPD Multiple sclerosis Continue home medications when verified DVT PPX: Lovenox Code status: Full Discharge Plan: Home Plan to discharge in: Greater than 2 days <Haley Novoa - Last Filed: 04/15/24 14:48> Patient seen and examined. Plan of care discussed with Renetta Bright. Nausea and vomiting resolved. Patient is complaining of neuropathic pain in both lower extremities. Plan: Start liquid diet. Resume home pain medications for neuropathy. PPI and Carafate. Optimize electrolytes-keep potassium level around 4. <abraham mckeon - Last Filed: 04/16/24 18:12>
[2024-04-15] MEDS: carvediloL 25 MG TAB PO SCH (20:25)
[2024-04-15] MEDS: SPIRONOLACTONE 25 MG TABLET PO SCH (20:25)
[2024-04-15] MEDS: QUETIAPINE 25 MG TAB PO SCH (20:26)
[2024-04-15 22:43] LABS: Specific Gravity > 1.030 (1.005-1.030); Sqamous Epithelial <5 /HPF (None Seen); Urine Bacteria None Seen /HPF (<20); Urine Bilirubin NEGATIVE (Negative); Urine Blood Negative (Negative); Urine Clarity Clear (Clear); Urine Color Light-Yellow (Yellow); Urine Crystals Unidentified Few /HPF (None Seen); Urine Culture Reflex Order NOT NEEDED; Urine Glucose NEGATIVE (Negative); Urine Ketones NEGATIVE (Negative); Urine Microscopic Reflex YN ORDER UMIC; Urine Mucus Slight /HPF (None Seen); Urine Nitrite NEGATIVE (Negative); Urine Protein TRACE (Negative); Urine RBC <5 /HPF (None Seen); Urine Urobilinogen Normal (Normal); Urine WBC <5 /HPF (<5)
[2024-04-16 06:37] LABS: Absolute Eosinophils 0.1 K/uL (0-0.5); Absolute Lymphocytes (CBC) 2.8 K/uL (0.7-4.9); Absolute Monocytes 0.5 K/uL (0.1-1.3); Absolute Neutrophil 3.6 K/uL (1.8-8.0); Basophils % 0.4 % (0-1.3); Eosinophils % 1.5 % (0-4.4); Hemoglobin 11.4 g/dL (12.0-15.0); Lymphocytes % 39.5 % (15.3-44.8); MCH 29.5 pg (27.0-35.0); MCHC 32.7 g/dL (32.0-36.0); MPV 8.4 fL (7.6-11.3); Monocytes % 7.5 % (3.3-12.3); Neutrophils % 51.1 % (41.7-73.7); Platelets 158 thou/uL (152-406); RBC Red Blood Cell Count 3.88 M/uL (3.86-4.86); Red Cell Distribution Width 17.1 % (12.1-15.2)
[2024-04-16 06:57] LABS: ALT/SGPT 24 U/L (13-56); AST/SGOT 24 U/L (15-37); Albumin 2.2 g/dL (3.4-5.0); Albumin/Globulin Ratio 0.7 (1.1-1.8); Alkaline Phosphatase 64 U/L (45-117); Anion Gap 7.9 mEq/L (5.0-15.0); Bicarbonate 26 mEq/L (21-32); Bilirubin Total 0.3 mg/dL (0.2-1.0); Glomerular Filtration Rate 109 ml/min (=/>90); Glucose Level 130 mg/dL (74-106); Magnesium 2.1 mg/dL (1.6-2.4); Phosphorus 1.7 mg/dL (2.5-4.9); Potassium 3.9 mEq/L (3.5-5.1); Protein, Total 5.2 g/dL (6.4-8.2); Sodium Level 137 mEq/L (136-145)
[2024-04-16 07:02] LABS: BUN Blood Urea Nitrogen < 3 mg/dL (7-18)
[2024-04-16] MEDS: ATORVASTATIN 10 MG TAB PO SCH (08:34)
[2024-04-16] MEDS: LIDOCAINE 4% PATCH TOP SCH (10:08)
[2024-04-16] MEDS ORDERED: HYDROCODONE/APAP 7.5/325 MG TAB PO PRN (12:39)
--- NOTE | 2024-04-16 15:24 | P.PN ---
Date of Service: 04/16/24 Subjective Awake and crying this AM, very uncomfortable Reports taking Gabapentin 900 mg TID ROS 10 point ROS as noted above, otherwise negative Physical Exam General: Alert and Oriented x3, uncomfortable, Obese, crying HEENT: Atraumatic, PERRLA, EOMI Neck: Supple, 2+ carotid pulse no bruit, No LAD, Without JVD or thyroid abnormality Respiratory: Clear to auscultation bilaterally, symmetrical chest wall movement, on Room air Cardiovascular: Normal sinus rhythm, Normal S1 S2, no murmur noted Gastrointestinal: Normal bowel sounds, distended (obese),Tenderness (Moderate right upper quadrant and right lower quadrant abdominal tenderness) Musculoskeletal: Neuropathy to bilateral lower extremities Integumentary: No rashes Neurological: Normal speech, Normal strength at 5/5 x4 extr Vitals Reviewed Problem list Intractable nausea/vomiting/diarrhea Enteritis History of IBS-C Possible history of gastroparesis Diabetes mellitus type [id number] Hypertension GERD COPD Multiple sclerosis Assessment and Plan Intractable nausea/vomiting/diarrhea Enteritis History of IBS-C Possible history of gastroparesis Hypokalemia Recent EGD/colonoscopy with Dr. Francisca Ibarra likely contributing to this episode Continue antibiotics Cipro/Flagyl CLD, tolerated ice chips Twice daily PPI and carafate QID Allergic to Reglan-reports she may have had a gastric emptying study in the year [address] Shen Considered gastric emptying study when patient is tolerating p.o. In October patient was admitted here for similar complaint and treated with sucralfate, erythromycin prior to discharge K 2.5/2.4/2.9/3.9- monitor and replace PRN Diabetes mellitus type 4eqm-nbsayis-[id number] ACHS Accu-Chek, sliding scale insulin Blood glucose stable Hypertension GERD COPD Multiple sclerosis Continue home medications when verified DVT PPX: Lovenox Code status: Full Discharge Plan: Home Plan to discharge in: Greater than 2 days
[2024-04-16] MEDS: GABAPENTIN 300 MG CAP PO SCH (20:13)
[2024-04-17 04:54] LABS: Absolute Basophils 0.1 K/uL (0-0.5); Absolute Eosinophils 0.2 K/uL (0-0.5); Absolute Lymphocytes (CBC) 3.4 K/uL (0.7-4.9); Absolute Monocytes 0.7 K/uL (0.1-1.3); Absolute Neutrophil 4.5 K/uL (1.8-8.0); Basophils % 0.9 % (0-1.3); Eosinophils % 1.8 % (0-4.4); Hematocrit 40.2 % (36.0-45.0); Hemoglobin 12.8 g/dL (12.0-15.0); Lymphocytes % 38.3 % (15.3-44.8); MCHC 31.9 g/dL (32.0-36.0); MCV 90.8 fL (80-100); MPV 8.6 fL (7.6-11.3); Monocytes % 8.2 % (3.3-12.3); Neutrophils % 50.8 % (41.7-73.7); Platelets 171 thou/uL (152-406); RBC Red Blood Cell Count 4.43 M/uL (3.86-4.86); Red Cell Distribution Width 17.3 % (12.1-15.2)
[2024-04-17 05:20] LABS: ALT/SGPT 28 U/L (13-56); AST/SGOT 21 U/L (15-37); Albumin 2.4 g/dL (3.4-5.0); Albumin/Globulin Ratio 0.7 (1.1-1.8); Alkaline Phosphatase 76 U/L (45-117); Anion Gap 8.1 mEq/L (5.0-15.0); Bicarbonate 28 mEq/L (21-32); Bilirubin Total 0.4 mg/dL (0.2-1.0); Globulin 3.6 g/dL (2.3-3.5); Glomerular Filtration Rate 104 ml/min (=/>90); Glucose Level 119 mg/dL (74-106); Magnesium 1.9 mg/dL (1.6-2.4); Phosphorus 1.6 mg/dL (2.5-4.9); Potassium 4.1 mEq/L (3.5-5.1); Sodium Level 137 mEq/L (136-145)
[2024-04-17 05:21] LABS: BUN Blood Urea Nitrogen < 3 mg/dL (7-18)
[2024-04-17] MEDS: POTASS/SODIUM PHOSPHATE 1 PKT POWD.PACK PO SCH (08:27)
[2024-04-17 10:24] VITALS: TEMP 96.8
[2024-04-17 11:52] VITALS: BMI 36.5
--- NOTE | 2024-04-17 15:20 | P.DS ---
Admission Date: 04/14/24 Discharge Date: 04/17/24 Disposition: ROUTINE DISCHARGE Discharge Condition: GOOD Reason for Admission: Enteritis, intractable vomiting, hypokalemia Brief History of Present Illness: Diagnosis Intractable nausea/vomiting/diarrhea Enteritis History of IBS-C Possible history of gastroparesis Diabetes mellitus type [id number] Hypertension GERD COPD Multiple sclerosis Urinary retention HPI 04/14/24 Lianne Medina is a 53-year-old female with history of hypertension, MS, GERD, COPD, IBS-C, questionable history of gastroparesis presents to the emergency department for chief complaint of nausea/vomiting/diarrhea. She reports that she had a colonoscopy/EGD Sunday and she did a 3-day prep prior to that. During the 3-day prep she was experiencing nausea vomiting diarrhea and it persisted after the scopes. She reports that it did not find a thing on the EGD that she is aware of and they did multiple biopsies from the colonoscopy but no other findings were reported to her. 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 Today she came to the emergency department because she was still not tolerating anything by mouth having frequent vomiting and diarrhea. Her labs were significant for severe hypokalemia with a potassium of 2.5 with blood cell count 13.[address] scan showing enteritis. Patient be admitted to the hospital for further management of intractable nausea vomiting and diarrhea as well as enteritis and hypokalemia Hospital Course: Lianne Medina is a pleasant 53 year old with a past medical history significant for hypertension, MS, GERD, COPD, IBS-C, questionable history of gastroparesis who was admitted to the [facility] on 04/14/24 for intractable nausea, vomiting, and diarrhea. 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 During this admission, she tolerated NPO which helped to reduce discomfort. She has tolerated CLD with minimal nausea, as well as protonix IV, and electrolyte replacement. She was able to tolerate more activity. Continued management will be accomplished outpatient follow up with Dr. Cerna. She experienced urinary retention and was provided a Amnning catheter draining greater than 2000 mL. Manning catheter was removed less than 12 hours later and she was able to urinate as expected. She can follow-up with Dr. Carbajal for further intervention and investigation for urinary retention. On 04/17/24, Lianne was seen on morning rounds and deemed medically stable for discharge. Lianne was discharged with instructions to schedule follow-up appointments with PCP, Dr. Cerna, and Dr. Carbajal. Lianne was provided prescriptions for carafate and erythromycin. Physical Exam General: AAO x3, NAD, Obese HEENT: Atraumatic, PERRLA, EOMI Neck: Supple, 2+ carotid pulse no bruit, No LAD, Without JVD or thyroid abnormality Respiratory: Clear to auscultation bilaterally, nonlabored breathing, on Room air Cardiovascular: NSR, Normal S1 S2, no murmur noted Gastrointestinal: Normal bowel sounds, distended (obese), mild Tenderness Musculoskeletal: Neuropathy to bilateral lower extremities Integumentary: No rashes Neurological: Normal speech, Normal strength at 5/5 x4 extr Vital Signs/Physical Exam: Temp Pulse Resp BP Pulse Ox 96.8 F 96 H 14 132/94 H 97 04/17/24 12:00 04/17/24 12:00 04/17/24 14:56 04/17/24 12:00 04/17/24 14:56 Laboratory Data at Discharge: WBC 8.90 thou/uL (4.3-10.9) 04/17/24 04:30 Hgb 12.8 g/dL (12.0-15.0) D 04/17/24 04:30 Hct 40.2 % (36.0-45.0) 04/17/24 04:30 Plt Count 171 thou/uL (152-406) 04/17/24 04:30 Sodium 137 mEq/L (136-145) 04/17/24 04:30 Potassium 4.1 mEq/L (3.5-5.1) 04/17/24 04:30 BUN < 3 mg/dL (7-18) L 04/17/24 04:30 Creatinine 0.66 mg/dL (0.55-1.02) 04/17/24 04:30 Glucose 119 mg/dL (74-106) H 04/17/24 04:30 Phosphorus 1.6 mg/dL (2.5-4.9) L 04/17/24 04:30 Magnesium 1.9 mg/dL (1.6-2.4) 04/17/24 04:30 Total Bilirubin 0.4 mg/dL (0.2-1.0) 04/17/24 04:30 AST 21 U/L (15-37) 04/17/24 04:30 ALT 28 U/L (13-56) 04/17/24 04:30 Alkaline Phosphatase 76 U/L (45-117) 04/17/24 04:30 Lipase 14 U/L (13-75) 04/14/24 07:30 Home Medications: Promethazine HCl 1 tab PO Q12HR PRN 04/03/18 Atorvastatin Calcium 10 mg PO DAILY 08/04/22 Gabapentin 900 mg PO TID 08/04/22 Ondansetron [Zofran (Odt)*] 4 mg PO Q8H PRN 08/04/22 Budesonide/Glycopyr/Formoterol [Breztri Aerosphere Inhaler] 2 puff IH BID 08/21/23 Spironolactone [Aldactone*] 25 mg PO BID #60 tab 08/21/23 Tizanidine HCl 2 mg PO Q8H 08/21/23 Esomeprazole Magnesium [Nexium 24Hr] 20 mg PO BREAKFAST 11/24/23 Hydrocodone/Acetaminophen [Hydrocodone-Acetamin 7.5-325] 1 tab PO Q8HR 11/24/23 Lidocaine 4% Patch [Lidoderm 5% Patch*] 1 patch TD DAILY 11/24/23 Linaclotide [Linzess] 1 cap PO DAILY PRN 11/24/23 Nortriptyline HCl [Pamelor] 50 mg PO BEDTIME 11/24/23 Quetiapine Fumarate [Seroquel] 50 mg PO BEDTIME 11/24/23 Tirzepatide [Mounjaro] 10 mg SQ EVERY 7TH DAY 11/24/23 Nystatin Powder [Mycostatin (Powder)*] 15 appl TOP BID 7 Days #1 btl 11/28/23 Albuterol Sulfate [Ventolin Hfa] 2 puff IH Q6HP PRN 02/12/24 Carvedilol [Coreg] 25 mg PO BID 02/12/24 Ibuprofen 400 mg PO Q4HP PRN 02/12/24 Sucralfate [Carafate*] 10 ml PO QID 10 Days #1 bottle 04/17/24 New Medications: Sucralfate [Carafate*] 10 ml PO QID 10 Days #1 bottle Physician Discharge Instructions: 1. Please call and schedule a follow-up appointment with your PCP in 3-5 days - Please follow-up with your PCP for medication refills/adjustments 2. Please call and schedule a follow-up appointment with Dr. Espinosa in 3-5 days 3. Please call and schedule a follow-up appointment with Dr. Carbajal -urinary retention during this admission 3. Continue regular diet 4. No activity restrictions 5. Return to the ED if symptoms worsen New medications Carafate 10 ml QID x 10 days Continue medications as prescribed outpatient Diet: Regular Activity: Ad kyree Followup: Wilbur Oliveira DO [Primary Care Provider] - 1-2 Weeks Pako Cerna MD [ASSOCIATE-ACTIVE - CAN ADMIT] - 1-2 Weeks
[2024-04-17 16:41] VITALS: BP 129/92
== END 2024-04-17 18:20 | disposition home or self-care (01) | DRG 392 ==
LOC: ER 07:04 → ERHOLD 10:45 → 2ND 16:33
PROVIDERS: ADMIT Hospitalist; ATTEND Internal Medicine
PROC: 02HV33Z Insertion of Infusion Device into Superior Vena Cava, Percutaneous Approach (ICD-10-PCS; 2024-04-14)
PROC: 0T9B70Z Drainage of Bladder with Drainage Device, Via Natural or Artificial Opening (ICD-10-PCS; principal; 2024-04-16)
DX: R11.2 Nausea with vomiting, unspecified (principal); E87.6 Hypokalemia; K52.9 Noninfective gastroenteritis and colitis, unspecified; E11.43 Type 2 diabetes mellitus with diabetic autonomic (poly)neuropathy; K31.84 Gastroparesis; T50.995A Adverse effect of other drugs, medicaments and biological substances, initial encounter; I10 Essential (primary) hypertension; G35 Multiple sclerosis; E66.9 Obesity, unspecified; K21.9 Gastro-esophageal reflux disease without esophagitis; J44.9 Chronic obstructive pulmonary disease, unspecified; R33.9 Retention of urine, unspecified; Z88.0 Allergy status to penicillin; Z88.2 Allergy status to sulfonamides; Z88.5 Allergy status to narcotic agent; Z88.8 Allergy status to other drugs, medicaments and biological substances; Z68.36 Body mass index [BMI] 36.0-36.9, adult; Z79.02 Long term (current) use of antithrombotics/antiplatelets; Z79.899 Other long term (current) drug therapy
CPT/HCPCS: 36415; 74177; 80048; 80053; 81001; 82947; 83690; 83735; 84100; 84439; 84443; 85025; 96361; 96374; 96375; 97161; 97530; 99285; J0744; J1650; J2001; J2270; J2405; J2470; J2550; J3475; J3480; J7030; J7040; J7050; Q9967

== ENCOUNTER 2024-05-12 17:49 | Inpatient (IN) | payer OTHER ==
--- OUTSIDE RECORDS SUMMARY | 2024-05-12 17:52 | XMS REPORT | Clinical Summary ---
Author Name Unknown Organization [facility] Address [address] [place] [address] Care Team Providers Care Spark Tester Name Role Phone Mingo Street MD Primary Care Provider Nomi Olea MD Unavailable [phone] Pedro Comer MD Unavailable Haresh Venegas MD Unavailable [email or web address] Magnolia Holden MD Unavailable Prince Abdoul [employer] Unavailable [phone] Darnell Wellington MD Unavailable [phone] Jossue Suresh Unavailable Mingo Street MD Unavailable [phone] Margarita Chaves PA Unavailable [phone] Kimber Mendoza MD Unavailable Cherrie Johnosn [employer] Unavailable [phone] Tigist Morgan MD Unavailable Cleopatra Al MD Unavailable [phone] Allergies Active Allergy Reactions Criticality Noted [...] High 08/20/2021 Per patient throat closes up [employer] Other (See Comments) 01/21/20 16 Penicillins [...] Take by mouth. 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 2016 Post-traumatic stress disorder 11/01/2016 Mild cognitive disorder 11/01/2016 Adjustment disorder with physical complaints 11/2016 Hyponatremia 10/31/2016 Melena 10/31/2016 Endometriosis 10/31/2016 Urinary tract infection 10/31/2016 Colitis 10/31/2016 Chronic pain syndrome 10/31/2016 Tobacco use 10/31/2016 Anemia of chronic disease 10/31/2016 Headache 10/31/2016 Abdominal pain, generalized 04/13/2016 Generalized anxiety disorder 04/13/2016 Surgical History Surgery Date Site/Laterality Comments BREAST RECONSTRUCTION OH ESOPHAGOGASTRODUODENOSCOP Y TRANSORAL DIAGNOSTIC 11/02/2016 Esophagus/N/A Procedure: DIAGNOSTIC UPPER GASTROINTESTINAL ENDOSCOPY; Surgeon: Apoorva Wen MD; Location: MAIN ENDOSCOPY; Service: GASTROENTEROLOGY OH COLONOSCOPY FLX DX W/JEANETTE J SPEC WHEN PFRMD 11/02/2016 N/A Procedure: DIAGNOSTIC FLEXIBLE COLONOSCOPY PROXIMAL TO SPLENIC FLEXURE; Surgeon: Apoorva Wen MD; Location: MAIN ENDOSCOPY; Service: GASTROENTEROLOGY COLONOSCOPY 07/30/1998 - 07/29/1999 EXPLORATORY LAPAROTOMY [id number] HYSTERECTOMY [id number] UPPER GASTROINTESTINAL ENDOSCOPY - 07/29/1999 Medical History Medical History Date Comments Stroke Seizure Myocardial infarction 1998 Hyperlipidemia Irregular heart beat Migraine 1982 Multiple sclerosis 1970 Traumatic brain injury [id number] Allergic rhinitis 8143-9539 Sinusitis 4977-0599 Difficulty talking 2016 Tooth disorder 2012 Swallowing problem 2003 Chronic bronchitis 9746-4256 Asbestosis 4852-6558 Pneumonia 2004 Gastric reflux 1987 Colitis [address] cheikh ve different diagnosis Celiac disease 2006 Malabsorption syndrome 1982 Diverticulitis [id number] Irritable bowel syndrome 1999 Renal stone 1981 History of recurrent urinary tract infection 1987 Urinary incontinence 0875-0221 Sexual dysfunction [id number] Abnormal uterine bleeding un related to menstrual cycle 5973-1942 Polycystic ovarian syndrome [address]riosis 6670-3587 Dr Nahomi ramirez d endo had traveled to other organs,hips, sp Anemia 2008 Blood transfusion, without r eported diagnosis 1981 Size J, breast total reconst uction Osteoporosis 2009 Osteomyelitis 1994 Breake of wrist had to take antibiotics Anxiety 1345-5504 do not have anxi ety or panic attacks since 2003 Psoriasis 1968-current Endometrial carcinoma Cancer - 1 990's Multiple sclerosis 11/27/[address] Citlali reeves Neurologist in [place] (Pt reported) Family History Medical History Relation Name Comments -Other cancer Father Costa Alegria 1981-? Bone ca [email or web address] Hypertension Father [place] A[place] Melanoma Father [...] cancer Paternal Uncle Prashant -Unknown cancer Sister [facility] Graves' disease Sister [facility] Uterine cancer Sister [facility] Vaginal cancer Sister [facility] Relation Name Status Comments Father [place] A[place] Maternal Aunt Debbielynn Maternal Grandfather Prashant Diazp Mother [place] Paternal Aunt 1 Billysue Raji Paternal Aunt 2 Debbielynn Paternal Grandfather Demar Paternal Grandmother [place] Paternal Uncle Prashant Sister [facility] Social History Tobacco Use Types Packs/Day [...] CDT Gender Identity Female 09/14/2021 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 PCP - General 09/29/15 Nomi Olea MD [address] [place] [id number] PCP - External Follow Up A 04/03/14 Pedro Comer MD [address] [place] [address] PCP - External Follow Up B 04/20/14 Kimber Mendoza MD [address] [place] [id number] [email or web address] [email or web address] - External Follow Up C Internal Medicine 11/08/21 Haresh Venegas MD [email or web address] Nurse Practitioner 10/06/15 Magnolia Holden MD [address] [place] [phone] [email or web address] Physician 10/06/15 Prince Schreiber APRN [address] [place] [phone] [email or web address] Nurse Practitioner 10/06/15 Darnell Wellington MD [address] [place] [phone] [email or web address] Physician 10/06/15 Jossue Suresh PA [address] [place] [phone] [email or web address] Physician [employer] Captain 10/06/[address] MD [address] [place] [phone] [email or web address] Physician 10/06/15 Margarita Chaves PA [address] [place] [phone] [email or web address] Physician [employer] 10/06/15 Cherrie Johnson APRN [address] [place] [phone] [email or web address] Nurse Practitioner Cancer Prevention 09/16/21 Tigist Morgan MD [address] [place] [phone] [email or web address] Consulting Physician Dermatology 09/26/21 Cleopatra Al MD [address] [place] [phone] [email or web address] Consulting Physician Gynecological Oncology 12/07/16
[2024-05-12] MEDS ORDERED: PROMETHAZINE INJ 25 MG/ML AMP ONE (18:14)
[2024-05-12] MEDS ORDERED: NA CHLORIDE 0.9% 1,000 ML ONE (18:14)
[2024-05-12 18:41] LABS: Absolute Basophils 0.1 K/uL (0-0.5); Absolute Monocytes 0.6 K/uL (0.1-1.3); Basophils % 0.5 % (0-1.3); Hematocrit 46.5 % (36.0-45.0); Hemoglobin 15.3 g/dL (12.0-15.0); Lymphocytes % 14.6 % (15.3-44.8); MCH 28.9 pg (27.0-35.0); MCHC 32.8 g/dL (32.0-36.0); MCV 88.2 fL (80-100); MPV 8.9 fL (7.6-11.3); Monocytes % 4.1 % (3.3-12.3); Neutrophils % 80.8 % (41.7-73.7); Platelets 240 thou/uL (152-406); RBC Red Blood Cell Count 5.28 M/uL (3.86-4.86); Red Cell Distribution Width 16.6 % (12.1-15.2)
[2024-05-12] MEDS ORDERED: droPERidol 5 MG/2 ML VIAL ONE (18:50)
[2024-05-12 19:17] LABS: Albumin 3.3 g/dL (3.4-5.0); Albumin/Globulin Ratio 0.7 (1.1-1.8); Anion Gap 9.9 mEq/L (5.0-15.0); Bilirubin Total 0.6 mg/dL (0.2-1.0); Potassium 2.9 mEq/L (3.5-5.1); Protein, Total 8.3 g/dL (6.4-8.2)
--- NOTE | 2024-05-12 20:16 | RAD REPORT ---
EXAMINATION: CT Abdomen Pelvis W Contrast CLINICAL INDICATION: Female, 53 years old. ABD PAIN TECHNIQUE: CT abdomen and pelvis was performed, after the administration of IV contrast, as per depar tment protocol. Axial, sagittal and coronal reconstructions were obtained. One or more of the following dose reduction techniques were used: Automated exposure control, adjustment of the mA and k V according to patient size, and iterative reconstruction. Unless otherwise specified, incidental findings do not require dedicated imaging follow-up. COMPARISON: 04/14/2024. FINDINGS: LOWER CHEST: The visualized lung bases are clear. LIVER: Normal in size and contour. Focal fatty infiltration near the falciform ligament margins. No o ther suspicious focal lesion. BILIARY SYSTEM: No suspicious abnormalities. SPLEEN: Normal size. No focal lesion. PANCREAS: No mass, ductal dilation, or brandi-pancreatic fluid. ADRENALS: Normal; no mass. KIDNEYS: Normal size and contour. No hydronephrosis. URINARY BLADDER: Unremarkable. GASTROINTESTINAL TRACT: No evidence of free air, significant intra-abdominal free fluid, bowel obstru ction or abscess. Mildly prominent jejunal loops with short segment air-fluid levels. Gradual tapering in the left hemiabdomen to normal caliber small bowel. APPENDIX: Normal appendix. LYMPH NODES: No lymphadenopathy. MUSCULOSKELETAL: No acute or suspicious osseous abnormality. ADDITIONAL FINDINGS: Status post hysterectomy. IMPRESSION: Mildly prominent jejunal loops with air-fluid levels, suggesting ileus. No evidence of obstruction.
--- NOTE | 2024-05-12 20:34 | EDPHYS ---
Physician Documentation [facility] Name: Lianne Medina Age: 53 yrs Sex: Female : 1970 Arrival Date: 05/12/2024 Time: 17:49 Bed 20 Private MD: ED Physician Humberto Townsend HPI: 05/12 18:12 This 53 yrs old Female presents to ER via Unassigned with complaints of nausea, sb4 vomiting, abdominal pain. 18:12 The patient presents with abdominal pain that is diffuse. Onset: The symptoms/episode sb4 began/occurred 2 day(s) ago. The symptoms do not radiate. Associated signs and symptoms: Pertinent positives: nausea and vomiting. 18:23 The patient has experienced similar episodes in the past, multiple times, today's sb4 symptoms are similar. Historical: - Allergies: 18:01 cyclobenzaprine HCl; rs5 18:01 CYCLOSPORINE; rs5 18:01 Lorazepam; rs5 18:01 Metoclopramide; rs5 18:01 PENICILLINS; rs5 18:01 PENTAZOCINE; rs5 18:01 Phenytoin; rs5 18:01 Prochlorperazine; rs5 18:01 Sulfa (Sulfonamide Antibiotics); rs5 18:01 TETRACYCLINES; rs5 18:01 Tizanidine; rs5 18:01 Toradol; rs5 18:01 tramadol; rs5 18:01 divalproex; rs5 18:01 Fentanyl; rs5 18:01 levetiracetam; rs5 18:01 Celecoxib; rs5 - PMHx: 18:01 Cancer; Multiple Sclerosis; Hernia; brain aneurysm; prolapsed bladder; brain tumor x 5; rs5 - PSHx: 18:01 None; rs5 - Immunization history:: Adult Immunizations up to date. - Infectious Disease History:: Denies. - Social history:: Smoking status: Patient denies any tobacco usage or history of. ROS: 18:23 Constitutional: Negative for fever, chills, and weight loss, sb4 18:23 Abdomen/GI: Positive for abdominal pain, nausea and vomiting, 18:23 All other systems are negative, Exam: 18:23 Head/Face: Normocephalic, atraumatic. Eyes: Extra-ocular motions intact. Periorbital sb4 areas with no swelling, redness, or edema. Cardiovascular: Regular rate and rhythm with a normal S1 and S2. Respiratory: Lungs have equal breath sounds bilaterally, clear to auscultation and percussion. No rales, rhonchi or wheezes noted. No increased work of breathing, no retractions or nasal flaring. Skin: Warm, dry with normal turgor. Normal color with no rashes, no lesions, and no evidence of cellulitis. 18:23 Constitutional: The patient appears alert, awake, dry heaving, tearful 18:23 Abdomen/GI: Inspection: abdomen appears normal, Bowel sounds: normal, Palpation: soft, mild abdominal tenderness, in all quadrants, Vital Signs: 18:00 BP 138 / 91; Pulse 88; Resp 17; Temp 98(O); Pulse Ox 99% on R/A; rs5 19:35 BP 137 / 86; Pulse 87; Resp 17; Pulse Ox 98% ; dd2 21:30 BP 142 / 88; Pulse 84; Resp 17; Pulse Ox 98% ; dd2 MDM: 17:59 Medical Screening Exam initiated sb4 20:33 Data reviewed: vital signs, nurses notes, lab test result(s), radiologic studies, I sb4 have discussed the patient's presentation/case with the attending Emergency Department Physician; and as a result, I will admit patient. Consideration of Admission/Observation Patient was admitted/placed on observation. Counseling: I had a detailed discussion with the patient and/or guardian regarding the historical points, exam findings, and any diagnostic results supporting the discharge/admit diagnosis, lab results, radiology results, the need for further work-up and treatment in the hospital. 05/12 18:12 Order name: CBC with Diff; Complete Time: 18:46 sb4 05/12 18:12 Order name: CMP; Complete Time: 19:17 sb4 05/12 18:12 Order name: Lipase; Complete Time: 19:17 sb4 05/12 18:12 Order name: Urinalysis w/ reflexes sb4 05/12 20:56 Order name: Urinalysis w/ reflexes EDMS 05/12 20:56 Order name: CBC with Automated Diff EDMS 05/12 20:56 Order name: CBC with Automated Diff EDMS 05/12 20:56 Order name: Comprehensive Metabolic Panel EDMS 05/12 20:56 Order name: Comprehensive Metabolic Panel EDMS 05/12 20:56 Order name: Magnesium EDMS 05/12 20:56 Order name: Magnesium EDMS 05/12 18:52 Order name: CT Abd/Pelvis - IV Contrast Only; Complete Time: 20:19 sb4 05/12 18:12 Order name: IV Saline Lock; Complete Time: 18:14 sb4 05/12 18:12 Order name: Labs collected and sent; Complete Time: 18:54 sb4 05/12 20:20 Order name: NPO; Complete Time: 20:48 sb4 Administered Medications: 18:30 Drug: NS 0.9% IV 1000 ml IV at 1 bolus Per protocol; to be given as a bolus over 60 rs5 minutes Route: IV; Rate: 1 bolus; Site: right antecubital; 19:30 Follow up: Response: No adverse reaction; IV Status: Completed infusion; IV Intake: dd2 1000ml 18:30 Drug: Promethazine IM 25 mg IM once Route: IM; Site: right deltoid; rs5 19:10 Follow up: Response: No adverse reaction dd2 18:52 Drug: Droperidol IVP 2.5 mg IVP once Route: IVP; Site: right antecubital; rs5 19:10 Follow up: Response: No adverse reaction dd2 20:37 CANCELLED (Physician Discretion): [id number] mg IVP once sb4 20:48 Drug: Potassium Chloride IV 20 mEq IV at calculated rate once; administer over 1-2 dd2 hours Route: IV; Rate: calculated rate; Site: right antecubital; 21:03 Follow up: Response: No adverse reaction dd2 22:41 Follow up: IV Status: Infusion continued upon transfer dd2 20:48 Drug: diphenhydrAMINE IVP 50 mg IVP once Route: IVP; Site: right antecubital; dd2 21:03 Follow up: Response: No adverse reaction dd2 Disposition Summary: 05/12/24 20:33 Hospitalization Ordered Notes: Hospitalization Status: Inpatient Admission sb4 Provider: Ralph Bourne sb4 Location: Telemetry/[facility]Sur (Inpatient) sb4 Condition: Fair sb4 Problem: new sb4 Symptoms: are unchanged sb4 Bed/Room Type: Standard sb4 Room Assignment: 411(05/12/24 21:01) vk Diagnosis - Ileus, unspecified sb4 - Hypokalemia sb4 Forms: - Medication Reconciliation Form sb4 - SBAR form sb4 - Leadership Thank You Letter sb4 Signatures: Dispatcher [employer] Onelia Arshad PA-C PA-C sb4 Yimi Ruelas RN RN rs5 Felicia Horvath DIANA, RN RN dd2 Corrections: (The following items were deleted from the chart) 20:37 20:37 diphenhydrAMINE IVP 25 mg IVP once ordered. sb4 sb4 21:01 20:33 sb4 vk
--- NOTE | 2024-05-12 20:34 | ER ---
Nurse's Notes [facility] Name: Lianne Medina Age: 53 yrs Sex: Female : 1970 Arrival Date: 05/12/2024 Time: 17:49 Bed 20 Private MD: Diagnosis: Ileus, unspecified;Hypokalemia Presentation: 05/12 18:00 Chief complaint: EMS states: N/V and abdominal pain x3 days. rs5 18:00 Coronavirus screen: At this time, the client does not indicate any symptoms associated rs5 with coronavirus-19. Ebola Screen: No symptoms or risks identified at this time. Initial Sepsis Screen: Does the patient meet any 2 criteria? No. Patient's initial sepsis screen is negative. Does the patient have a suspected source of infection? No. Patient's initial sepsis screen is negative. Risk Assessment: Do you want to hurt yourself or someone else? Patient reports no desire to harm self or others. Onset of symptoms was May 12, 2024. 18:00 Method Of Arrival: EMS: [facility] rs5 18:00 Acuity: BRANDEN 3 rs5 Historical: - Allergies: 18:01 cyclobenzaprine HCl; rs5 18:01 CYCLOSPORINE; rs5 18:01 Lorazepam; rs5 18:01 Metoclopramide; rs5 18:01 PENICILLINS; rs5 18:01 PENTAZOCINE; rs5 18:01 Phenytoin; rs5 18:01 Prochlorperazine; rs5 18:01 Sulfa (Sulfonamide Antibiotics); rs5 18:01 TETRACYCLINES; rs5 18:01 Tizanidine; rs5 18:01 Toradol; rs5 18:01 tramadol; rs5 18:01 divalproex; rs5 18:01 Fentanyl; rs5 18:01 levetiracetam; rs5 18:01 Celecoxib; rs5 - PMHx: 18:01 Cancer; Multiple Sclerosis; Hernia; brain aneurysm; prolapsed bladder; brain tumor x 5; rs5 - PSHx: 18:01 None; rs5 - Immunization history:: Adult Immunizations up to date. - Infectious Disease History:: Denies. - Social history:: Smoking status: Patient denies any tobacco usage or history of. Screenin:31 [facility] ED Fall Risk Assessment (Adult) History of falling in the last 3 months, dd2 including since admission No falls in past 3 months (0 pts). [facility] ED Fall Risk Assessment (Adult) Confusion or Disorientation No (0 pts) Intoxicated or Sedated No (0 pts) Impaired Gait No (0 pts) Mobility Assist Device Used Yes (1 pt) Altered Elimination No (0 pt) Score/Fall Risk Level 0 - 2 = Low Risk Oriented to surroundings, Maintained a safe environment, Educated pt \T\ family on fall prevention, incl call for assistance when getting out of bed, Assessed \T\ reinforced patient's understanding of fall precautions, Hourly rounding (assess needs \T\ fall precautionary measures) done. Abuse screen: Denies threats or abuse. Nutritional screening: No deficits noted. Tuberculosis screening: No symptoms or risk factors identified. Assessment: 18:01 General: Appears distressed, uncomfortable, Behavior is cooperative, agitated, anxious. rs5 Pain: Complains of pain in abdomen Pain currently is 8 out of 10 on a pain scale. Quality of pain is described as aching, Is continuous. Neuro: Level of Consciousness is awake, alert, obeys commands, Oriented to person, place, time, situation. Cardiovascular: Patient's skin is warm and dry. Respiratory: Airway is patent Respiratory effort is even, unlabored, Respiratory pattern is regular, symmetrical. GI: Abdomen is round non-distended, Reports nausea. : No signs and/or symptoms were reported regarding the genitourinary system. EENT: No signs and/or symptoms were reported regarding the EENT system. Derm: Skin is intact, Skin is pink, warm \T\ dry. Musculoskeletal: Range of motion: intact in all extremities. Vital Signs: 18:00 BP 138 / 91; Pulse 88; Resp 17; Temp 98(O); Pulse Ox 99% on R/A; rs5 19:35 BP 137 / 86; Pulse 87; Resp 17; Pulse Ox 98% ; dd2 21:30 BP 142 / 88; Pulse 84; Resp 17; Pulse Ox 98% ; dd2 ED Course: 17:53 Patient arrived in ED. ec2 17:56 Onelia Sesay PA-C is [facility]. sb4 17:56 Humberto Townsend MD is Attending Physician. sb4 18:14 Yimi Ruelas, VITA is Primary Nurse. rs5 18:35 Initial lab(s) drawn, by me, sent to lab. Inserted saline lock: 20 gauge in right hb antecubital area, using aseptic technique. ,using aseptic technique. US GUIDED Blood collected. Flushed with 10 mL NS. 18:41 Triage completed. rs5 19:36 CT Abd/Pelvis - IV Contrast Only In Process Unspecified. EDMS 20:33 Ralph Bourne MD is Hospitalizing Provider. sb4 21:31 No provider procedures requiring assistance completed. dd2 21:31 Patient has correct armband on for positive identification. Bed in low position. Call dd2 light in reach. Side rails up X2. Provided Education on: MEDICATIONS, ADMISSION. Client placed on continuous cardiac and pulse oximetry monitoring. NIBP monitoring applied. Door closed. Noise minimized. Warm blanket given. Verbal reassurance given. 22:40 Patient admitted, IV remains in place. dd2 22:40 Arm band placed on. dd2 Administered Medications: 18:30 Drug: NS 0.9% IV 1000 ml IV at 1 bolus Per protocol; to be given as a bolus over 60 rs5 minutes Route: IV; Rate: 1 bolus; Site: right antecubital; 19:30 Follow up: Response: No adverse reaction; IV Status: Completed infusion; IV Intake: dd2 1000ml 18:30 Drug: Promethazine IM 25 mg IM once Route: IM; Site: right deltoid; rs5 19:10 Follow up: Response: No adverse reaction dd2 18:52 Drug: Droperidol IVP 2.5 mg IVP once Route: IVP; Site: right antecubital; rs5 19:10 Follow up: Response: No adverse reaction dd2 20:37 CANCELLED (Physician Discretion): [id number] mg IVP once sb4 20:48 Drug: Potassium Chloride IV 20 mEq IV at calculated rate once; administer over 1-2 dd2 hours Route: IV; Rate: calculated rate; Site: right antecubital; 21:03 Follow up: Response: No adverse reaction dd2 22:41 Follow up: IV Status: Infusion continued upon transfer dd2 20:48 Drug: diphenhydrAMINE IVP 50 mg IVP once Route: IVP; Site: right antecubital; dd2 21:03 Follow up: Response: No adverse reaction dd2 Medication: 22:40 VIS not applicable for this client. dd2 Intake: 19:30 IV: 1000ml; Total: 1000ml. dd2 Outcome: 20:33 Decision to Hospitalize by Provider. sb4 22:40 Admitted to Med/surg accompanied by tech, via stretcher, room 411, with chart, dd2 22:40 Condition: stable 22:40 Instructed on the need for admit, 22:41 Patient left the ED. dd2 Signatures: Dispatcher [employer] EDRuma Tee, RN RN Onelia Padilla, PA-C PA-C sb4 Yimi Ruelas RN RN rs5 Humberto Townsend MD MD ec2 OANH DEL TORO RN RN dd2
[2024-05-12] MEDS ORDERED: KCL 20 MEQ/100 mL IVPB 100 ML IV ONE (20:35)
[2024-05-12] MEDS ORDERED: DIPHENHYDRAMINE 50 MG/ML VIAL ONE (20:39)
--- NOTE | 2024-05-12 20:49 | P.HP ---
Certification for Inpatient Patient admitted to: Inpatient With expected LOS: >2 Midnights Practitioner: I am a practitioner with admitting privileges, knowledge of patient current condition, hospital course, and medical plan of care. Services: Services provided to patient in accordance with Admission requirements found in Title 42 Section 412.3 of the Code of Federal Regulations Patient History Date of Service: 05/13/24 Reason for admission: Abdominal Pain History of Present Illness: 53 yrs old Female with past medical history of multiple sclerosis, hernia, brain tumor, brain aneurysm, prolapsed bladder ,hypertension, GERD, COPD, IBS-C, questionable history of gastroparesis presents to the emergency department for chief complaint of abdominal pain and nausea/vomiting. Dr. 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 Patient states that she started having abdominal pain for the last 2 days and has been diffuse and has been progressing and was brought to ER Associated with nausea and vomiting and had noticed a lot of mucus in the stool. No fever or chills. No chest pain or shortness of breath Patient was assessed in the ER and was found to have possible ileus and was admitted for further management Allergies Penicillins Allergy (Severe, Verified 05/12/24 23:50) anaphalxis cyclobenzaprine HCl [From Flexeril] Allergy (Intermediate, Verified 05/12/24 23:50) sob Sulfa (Sulfonamide Antibiotics) [Sulfa(Sulfonamide Antibiotics)] Allergy (Intermediate, Verified 05/12/24 23:50) anaphalxis tramadol HCl [From Ultram] Allergy (Intermediate, Verified 05/12/24 23:50) hives, sob tetracycline [Tetracycline] Allergy (Mild, Verified 05/12/24 23:50) anaphalyxis celecoxib Allergy (Verified 05/12/24 23:50) Unknown levetiracetam Allergy (Verified 05/12/24 23:50) Unknown lorazepam Adverse Reaction (Mild, Verified 05/13/24 00:35) Unknown CYCLOSPORINE Allergy (Mild, Uncoded 05/13/24 00:35) Anaphylaxis divalproex Allergy (Mild, Uncoded 05/13/24 00:35) Unknown METOCLOPRAMIDE Adverse Reaction (Mild, Uncoded 05/13/24 00:35) Unknown Home medications list reviewed: Yes Home Medications: Promethazine HCl 1 tab PO Q12HR PRN 04/03/18 Atorvastatin Calcium 10 mg PO DAILY 08/04/22 Gabapentin 900 mg PO TID 08/04/22 Ondansetron [Zofran (Odt)*] 4 mg PO Q8H PRN 08/04/22 Budesonide/Glycopyr/Formoterol [Breztri Aerosphere Inhaler] 2 puff IH BID 08/21/23 Spironolactone [Aldactone*] 25 mg PO BID #60 tab 08/21/23 Tizanidine HCl 2 mg PO Q8H 08/21/23 Esomeprazole Magnesium [Nexium 24Hr] 20 mg PO BREAKFAST 11/24/23 Hydrocodone/Acetaminophen [Hydrocodone-Acetamin 7.5-325] 1 tab PO Q8HR 11/24/23 Lidocaine 4% Patch [Lidoderm 5% Patch*] 1 patch TD DAILY 11/24/23 Linaclotide [Linzess] 1 cap PO DAILY PRN 11/24/23 Nortriptyline HCl [Pamelor] 50 mg PO BEDTIME 11/24/23 Quetiapine Fumarate [Seroquel] 50 mg PO BEDTIME 11/24/23 Tirzepatide [Mounjaro] 10 mg SQ EVERY 7TH DAY 11/24/23 Nystatin Powder [Mycostatin (Powder)*] 15 appl TOP BID 7 Days #1 btl 11/28/23 Albuterol Sulfate [Ventolin Hfa] 2 puff IH Q6HP PRN 02/12/24 Ibuprofen 400 mg PO Q4HP PRN 02/12/24 carvediloL [Coreg] 25 mg PO BID 02/12/24 Sucralfate [Carafate*] 10 ml PO QID 10 Days #1 bottle 04/17/24 - Past Medical/Surgical History Diabetic: No Past Medical History: Reviewed- Non-Contributory -: cancer -: prlapsed bladder -: brain tumor x 5 -: MS -: IBSC Past Surgical History: Reviewed- Non-Contributory -: Multiple abdominal surgeriesendometriosis -: -: Breast reconstruction Psychosocial/ Personal History: Patient is disabled, lives at home with her /daughter. - Family History Family History: Reviewed- Non-Contributory - Family History Father -: Hypertension Mother -: Other (see notes) Notes: thyroid problems - Social History Smoking Status: Former smoker Alcohol use: No CD- Drugs: No Caffeine use: Yes Review of Systems 10-point ROS is otherwise unremarkable Physical Examination - Vital Signs Temperature: 97.4 F Blood Pressure: 150/98 Pulse: 92 Respirations: 18 Pulse Ox (%): 97 - Physical Exam General: Alert, Oriented x3, Mild distress, Obese HEENT: Atraumatic, Normocephalic Neck: Supple, No Thyromegaly Respiratory: Clear to auscultation bilaterally, Normal air movement Cardiovascular: Regular rate/rhythm, Normal S1 S2 Capillary refill: <2 Seconds Gastrointestinal: W/out hepatosplenomegaly, Distended, Tenderness Musculoskeletal: No clubbing, No swelling Integumentary: No rashes, No breakdown Neurological: Normal speech, Normal strength at 5/5 x4 extr, Cranial nerves 3-12 intact Lymphatics: No axilla or inguinal lymphadenopathy - Studies Laboratory Data (last 24 hrs) 05/12/24 05/12/24 16:32 16:32 WBC 13.60 H Hgb 15.3 H Hct 46.5 H Plt Count 240 Sodium 138 Potassium 2.9 L BUN 7 Creatinine 0.68 Glucose 97 Total Bilirubin 0.6 AST 25 ALT 29 Alkaline Phosphatase 105 Lipase 18 Assessment and Plan - Plan Ileus Intractable nausea/vomiting History of IBS-C Possible history of gastroparesis Hypokalemia Diabetes mellitus type 2 ndx-clqccsr-cplhygwrv Hypertension GERD COPD Multiple sclerosis Plan: Will keep n.p.o. for now Pain control Started on Zofran Will add Phenergan as needed as she was not responding to Zofran IV fluids Surgical consult Hypertension Antihypertensives titrated Continue home medications and titrate as needed Hypokalemia Potassium replacement Monitor closely on telemetry Diabetes Insulin sliding scale Accu-Chek before every meal and at bedtime GERD, COPD, Multiple sclerosis Continue home medications and titrate as needed GI/DVT prophylaxis Advanced directive full code Discharge Plan: Home Plan to discharge in: 48 Hours - Advance Directives Does patient have a Living Will: No Does patient have a Durable POA for Healthcare: No - Code Status/Comfort Care Code Status: Full Code Time Spent Managing Pts Care (In Minutes): 48
[2024-05-12] MEDS ORDERED: ACETAMINOPHEN 325 MG TABLET PO PRN (20:50)
[2024-05-12] MEDS ORDERED: Linaclotide [Linzess] 72 MCG Capsule PO PRN (21:23)
[2024-05-12] MEDS ORDERED: ALBUTEROL INHALER 200 PUFF/6.7 GM IH PRN (21:23)
[2024-05-12] MEDS: GABAPENTIN 300 MG CAP PO SCH (23:00)
[2024-05-12] MEDS: QUETIAPINE 25 MG TAB PO SCH ×2 (23:30→23:34)
[2024-05-12] MEDS: MORPHINE 2 MG/ML SYR IV PRN (23:32)
[2024-05-12] MEDS: TIZANIDINE 4 MG TABLET PO SCH (23:33)
[2024-05-12] MEDS: ONDANSETRON 4 MG/2 ML VIAL IV PRN (23:33)
[2024-05-13] MEDS: D5.45NS W/KCL 20MEQ 1,000 ML IV SCH (00:36)
[2024-05-13 00:45] LABS: Specific Gravity > 1.030 (1.005-1.030); Sqamous Epithelial <5 /HPF (None Seen); Urine Bacteria None Seen /HPF (<20); Urine Bilirubin NEGATIVE (Negative); Urine Blood Negative (Negative); Urine Clarity Clear (Clear); Urine Color Light-Yellow (Yellow); Urine Culture Reflex Order NOT NEEDED; Urine Glucose NEGATIVE (Negative); Urine Ketones 2+ (Negative); Urine Microscopic Reflex YN ORDER UMIC; Urine Nitrite NEGATIVE (Negative); Urine Protein TRACE (Negative); Urine RBC <5 /HPF (None Seen); Urine Urobilinogen Normal (Normal); Urine WBC <5 /HPF (<5); Urine pH 8.5 (5.0-7.0)
[2024-05-13 01:14] VITALS: BMI 34.7
[2024-05-13] MEDS: PROMETHAZINE INJ 25 MG/ML AMP IV PRN (01:31)
[2024-05-13] MEDS: NA CHLORIDE 0.9% 500 ML ONE (02:01)
[2024-05-13] MEDS: GABAPENTIN 300 MG CAP PO SCH (02:05)
[2024-05-13] MEDS: KCL 20 MEQ/100 mL IVPB 20 MEQ/100 ML BAG IV SCH (02:05)
[2024-05-13] MEDS: HYDROCODONE/APAP 5/325 MG TAB PO PRN (02:15)
[2024-05-13 06:08] LABS: Absolute Lymphocytes (CBC) 3.9 K/uL (0.7-4.9); Absolute Monocytes 0.8 K/uL (0.1-1.3); Absolute Neutrophil 6.2 K/uL (1.8-8.0); Basophils % 0.3 % (0-1.3); Eosinophils % 0.1 % (0-4.4); Hematocrit 36.5 % (36.0-45.0); Hemoglobin 11.9 g/dL (12.0-15.0); Lymphocytes % 35.7 % (15.3-44.8); MCH 28.9 pg (27.0-35.0); MCHC 32.8 g/dL (32.0-36.0); MCV 88.3 fL (80-100); MPV 8.4 fL (7.6-11.3); Monocytes % 7.6 % (3.3-12.3); Neutrophils % 56.3 % (41.7-73.7); Nucleated Red Blood Cells % 0.1 % (0-0); Platelets 185 thou/uL (152-406); RBC Red Blood Cell Count 4.13 M/uL (3.86-4.86); Red Cell Distribution Width 16.6 % (12.1-15.2)
[2024-05-13 06:24] LABS: Albumin 2.3 g/dL (3.4-5.0); Albumin/Globulin Ratio 0.7 (1.1-1.8); Anion Gap 9.3 mEq/L (5.0-15.0); Bilirubin Total 0.5 mg/dL (0.2-1.0); Globulin 3.5 g/dL (2.3-3.5); Magnesium 1.4 mg/dL (1.6-2.4); Potassium 3.3 mEq/L (3.5-5.1); Protein, Total 5.8 g/dL (6.4-8.2)
[2024-05-13] MEDS: GLYCOPYR IH SCH (07:00)
[2024-05-13] MEDS: BUDESONIDE IH SCH (07:00)
[2024-05-13] MEDS: FORMOTEROL IH SCH (07:00)
[2024-05-13] MEDS ORDERED: HOME MED 1 EA UNK (Esomeprazole Magnesium [Nexium 24hr] 20 MG Tablet.Dr) PO SCH (08:00)
[2024-05-13] MEDS: ENOXAPARIN 40 MG/0.4 ML SQ SCH (08:44)
[2024-05-13] MEDS: carvediloL 25 MG TAB PO SCH (08:44)
[2024-05-13] MEDS: LIDOCAINE 4% PATCH TD SCH (08:45)
[2024-05-13] MEDS: PANTOPRAZOLE 40MG TABLET PO SCH (08:45)
[2024-05-13] MEDS: ATORVASTATIN 10 MG TAB PO SCH (08:45)
[2024-05-13] MEDS ORDERED: GABAPENTIN 300 MG CAP PO SCH (09:00)
[2024-05-13] MEDS: NORTRIPTYLINE HCL 25 MG CAP PO SCH (20:56)
--- NOTE | 2024-05-13 22:51 | P.PN ---
Subjective Date of Service: 05/13/24 Patient doing well no new complaints; symptoms improved. Spoke ith surgery and will advance diet and if tolerates dc in AM Review of Systems 10-point ROS is otherwise unremarkable Physical Examination - Vital Signs Temperature: 98.1 F Blood Pressure: 145/89 Pulse: 81 Respirations: 16 Pulse Ox (%): 98 - Physical Exam General: Alert, In no apparent distress, Oriented x3 (+) Respiratory: Clear to auscultation bilaterally, Normal air movement Cardiovascular: Regular rate/rhythm, Normal S1 S2, No murmurs Gastrointestinal: Normal bowel sounds, Soft and benign, Non-distended, No tenderness Musculoskeletal: No clubbing, No swelling, No tenderness Neurological: Sensation intact, Cranial nerves 3-12 intact - Studies Medications List Reviewed: Yes Assessment & Plan - Problems (Diagnosis) (1) Ileus Current Visit: Yes Status: Acute (2) Hypomagnesemia Current Visit: No Status: Acute (3) Intractable nausea and vomiting Onset Date: 04/04/18 Current Visit: No Status: Acute (4) Hyponatremia Onset Date: 04/04/18 Current Visit: No Status: Acute (5) Multiple sclerosis Onset Date: 04/04/18 Current Visit: No Status: Acute (6) Periumbilical pain Current Visit: No Status: Acute (7) Hypokalemia due to excessive gastrointestinal loss of potassium Current Visit: No Status: Acute - Plan -management per surgery -DVT prophylaxis -IV hydration -advanced diet -strict blood pressure and blood sugar control -monitor electrolytes and blood count closely -KUB -pain control Discharge Plan: Home Plan to discharge in: Greater than 2 days - Advance Directives Does patient have a Living Will: No Does patient have a Durable POA for Healthcare: No - Code Status/Comfort Care Code Status: Full Code Critical Care: No Time Spent Managing PTS Care (In Minutes): 35
[2024-05-14 06:52] LABS: Absolute Lymphocytes (CBC) 2.7 K/uL (0.7-4.9); Absolute Monocytes 0.5 K/uL (0.1-1.3); Basophils % 0.4 % (0-1.3); Eosinophils % 0.6 % (0-4.4); Hematocrit 35.7 % (36.0-45.0); Hemoglobin 11.8 g/dL (12.0-15.0); Lymphocytes % 36.8 % (15.3-44.8); MCH 29.3 pg (27.0-35.0); MCHC 33.1 g/dL (32.0-36.0); MCV 88.6 fL (80-100); MPV 8.5 fL (7.6-11.3); Monocytes % 6.4 % (3.3-12.3); Neutrophils % 55.8 % (41.7-73.7); Nucleated Red Blood Cells % 0.1 % (0-0); Platelets 162 thou/uL (152-406); RBC Red Blood Cell Count 4.03 M/uL (3.86-4.86); Red Cell Distribution Width 16.6 % (12.1-15.2)
[2024-05-14 07:23] LABS: Albumin 2.2 g/dL (3.4-5.0); Albumin/Globulin Ratio 0.7 (1.1-1.8); Anion Gap 7.3 mEq/L (5.0-15.0); Bilirubin Total 0.4 mg/dL (0.2-1.0); Globulin 3.3 g/dL (2.3-3.5); Magnesium 1.4 mg/dL (1.6-2.4); Potassium 3.3 mEq/L (3.5-5.1); Protein, Total 5.5 g/dL (6.4-8.2)
[2024-05-14] MEDS: Magnesium Sulfate 2gm IVPB 2 G/50 ML BAG IV ONE (08:24)
[2024-05-14] MEDS: POTASSIUM CL SA 10 MEQ TAB PO ONE (08:24)
[2024-05-14] MEDS ORDERED: POTASSIUM 25 MEQ EFFERV TAB PO ONE (09:00)
--- NOTE | 2024-05-14 09:28 | RAD REPORT ---
EXAM: Abdomen W Erect HISTORY: [facility] MAIN ileus COMPARISON: CT abdomen and pelvis 05/12/2024 FINDINGS: Single view of the abdomen shows a nonspecific, nonobstructive bowel gas pattern. No suspi cious calcifications are seen. The bones are unremarkable. IMPRESSION: Nonobstructive bowel gas pattern.
[2024-05-14 09:37] VITALS: O2SAT 97
[2024-05-14 15:22] LABS: Magnesium 2.4 mg/dL (1.6-2.4); Potassium 3.9 mEq/L (3.5-5.1)
[2024-05-14] MEDS ORDERED: POTASSIUM CL SA 10 MEQ TAB PO ONE (17:00)
[2024-05-15 06:58] LABS: Anion Gap 5.3 mEq/L (5.0-15.0); Bicarbonate 27 mEq/L (21-32); Glomerular Filtration Rate 109 ml/min (=/>90); Glucose Level 101 mg/dL (74-106); Magnesium 2.3 mg/dL (1.6-2.4); Potassium 4.3 mEq/L (3.5-5.1); Sodium Level 140 mEq/L (136-145)
[2024-05-15 06:59] LABS: BUN Blood Urea Nitrogen < 3 mg/dL (7-18)
[2024-05-15 08:37] VITALS: BP 135/91; TEMP 97.1
== END 2024-05-15 11:39 | disposition home health service (06) | DRG 389 ==
LOC: ER 17:49 → 4TH 20:50
PROVIDERS: ADMIT Family Medicine; ATTEND Hospitalist
DX: K56.7 Ileus, unspecified (principal); E87.1 Hypo-osmolality and hyponatremia; E87.6 Hypokalemia; E66.9 Obesity, unspecified; G35 Multiple sclerosis; E11.9 Type 2 diabetes mellitus without complications; E83.42 Hypomagnesemia; I10 Essential (primary) hypertension; K21.9 Gastro-esophageal reflux disease without esophagitis; J44.9 Chronic obstructive pulmonary disease, unspecified; Z88.5 Allergy status to narcotic agent; Z88.2 Allergy status to sulfonamides; Z88.1 Allergy status to other antibiotic agents; Z88.8 Allergy status to other drugs, medicaments and biological substances; Z68.34 Body mass index [BMI] 34.0-34.9, adult; Z79.02 Long term (current) use of antithrombotics/antiplatelets; Z79.899 Other long term (current) drug therapy; Z87.891 Personal history of nicotine dependence
CPT/HCPCS: 36415; 74019; 74177; 80048; 80053; 81001; 83690; 83735; 84132; 85025; 96361; 96365; 96366; 96372; 96375; 99285; J1200; J1650; J1790; J2001; J2270; J2405; J2550; J3475; J3480; J7030; J7040; Q9967

== ENCOUNTER 2024-05-19 08:05 | Emergency (ER) | payer OTHER ==
--- OUTSIDE RECORDS SUMMARY | 2024-05-19 08:07 | XMS REPORT | Clinical Summary ---
Author Name Unknown Organization [facility] Address [address] [place] [address] Care Team Providers Care Breaker Boss Name Role Phone Mingo Street MD Primary Care Provider Nomi Olea MD Unavailable Pedro Comer MD Unavailable Haresh Venegas MD Unavailable [email or web address] Magnolia Holden MD Unavailable Prince Abdoul GUM WORKER Unavailable [phone] Darnell Wellington MD Unavailable Jossue Suresh Unavailable Mingo Street MD Unavailable [phone] Margarita Chaves Unavailable [phone] Kimber Mendoza MD Unavailable Cherrie Johnson GUM WORKER Unavailable Tigist Morgan MD Unavailable Cleopatra Al MD Unavailable [phone] Allergies Active Allergy Reactions Criticality Noted [...] High 08/20/2021 Per patient throat closes up [place] Analogues Other (See Comments) 01/21/20 16 Penicillins [...] Take by mouth. 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 2016 Post-traumatic stress disorder 11/01/2016 Mild cognitive disorder 11/01/2016 Adjustment disorder with physical complaints 11/2016 Hyponatremia 10/31/2016 Melena 10/31/2016 Endometriosis 10/31/2016 Urinary tract infection 10/31/2016 Colitis 10/31/2016 Chronic pain syndrome 10/31/2016 Tobacco use 10/31/2016 Anemia of chronic disease 10/31/2016 Headache 10/31/2016 Abdominal pain, generalized 04/13/2016 Generalized anxiety disorder 04/13/2016 Surgical History Surgery Date Site/Laterality Comments BREAST RECONSTRUCTION MD ESOPHAGOGASTRODUODENOSCOP Y TRANSORAL DIAGNOSTIC 11/02/2016 Esophagus/N/A Procedure: DIAGNOSTIC UPPER GASTROINTESTINAL ENDOSCOPY; Surgeon: Apoorva Wen MD; Location: MAIN ENDOSCOPY; Service: GASTROENTEROLOGY MD COLONOSCOPY FLX DX W/JEANETTE J SPEC WHEN PFRMD 11/02/2016 N/A Procedure: DIAGNOSTIC FLEXIBLE COLONOSCOPY PROXIMAL TO SPLENIC FLEXURE; Surgeon: Apoorva Wen MD; Location: MAIN ENDOSCOPY; Service: GASTROENTEROLOGY COLONOSCOPY 07/30/1998 - 07/29/1999 EXPLORATORY LAPAROTOMY [id number] HYSTERECTOMY [id number] UPPER GASTROINTESTINAL ENDOSCOPY - 07/29/1999 Medical History Medical History Date Comments Stroke Seizure Myocardial infarction 1998 Hyperlipidemia Irregular heart beat Migraine 1982 Multiple sclerosis 1970 Traumatic brain injury 0641-2209 Allergic rhinitis 3264-5332 Sinusitis 4600-7457 Difficulty talking 2016 Tooth disorder 2012 Swallowing problem 2003 Chronic bronchitis 3069-4027 Asbestosis 2142-0213 Pneumonia 2004 Gastric reflux 1987 Colitis [address] cheikh ve different diagnosis Celiac disease 2006 Malabsorption syndrome 1982 Diverticulitis [id number] Irritable bowel syndrome 1999 Renal stone 1981 History of recurrent urinary tract infection 1987 Urinary incontinence 2203-1797 Sexual dysfunction [id number] Abnormal uterine bleeding un related to menstrual cycle 8378-9789 Polycystic ovarian syndrome [address] End[address]riosis 6019-4952 Dr Nahomi ramirez d endo had traveled to other organs,hips, sp Anemia 2008 Blood transfusion, without r eported diagnosis 1981 Size J, breast total reconst uction Osteoporosis 2009 Osteomyelitis 1994 Breake of wrist had to take antibiotics Anxiety 8485-7206 do not have anxi ety or panic attacks since 2003 Psoriasis 1968-current Endometrial carcinoma Cancer - 1 990's Multiple sclerosis 11/27/[address] Citlali reeves Neurologist in [place] (Pt reported) Family History Medical History Relation Name Comments -Other cancer Father Costa Alegria 1981-? Bone ca [email or web address] Father [place] Aleg[place] Melanoma Father [place] Prostate cancer Father Costa Alegria Sarcoma Father Costa Aleg[place] Bone cancer Skin cancer Father Costa Aleg[place] Colon cancer Maternal Aunt Asaybielynn Colon cancer Maternal Grandfather Prashant Yarbrough Graves' [...] cancer Paternal Uncle Prashant -Unknown cancer Sister [facility] Graves' disease Sister [facility] Uterine cancer Sister [facility] Vaginal cancer Sister [facility] Relation Name Status Comments Father [place] Aleg[place] Maternal Aunt Debbielynn Maternal Grandfather Prashant Daizp Mother Florence Paternal Aunt 1 Billysue Raji Paternal Aunt 2 Debbielynn Paternal Grandfather Demar Paternal Grandmother Hunt Paternal Uncle Prashant Sister [facility] Social History Tobacco Use Types Packs/Day Years Used Date Smoking Tobacco: Every Day Cigarettes 1.5 17.5 Started: 11/29/2006 Smokeless Tobacco: Never Tobacco Cessation:Ready to Q uit: No Alcohol Use Standard Drinks/Week Comments No 0 (1 standard drink = 0.6 oz pur e alcohol) Sex and Gender Information Value Date Recorded Sex Assigned at Female 11/22/2021 4:37 PM CDT Gender Identity Female 09/14/2021 3:07 AM MANAGEMENT NURSE RN Sexual Orientation Straight 09/14/2021 3: 07 AM MANAGEMENT NURSE RN Job Start Date Occupation Industry Not on [...] 10:29 PM 04/12/2016 5:58 PM Care Teams Breaker Boss Relationship Specialty Start Date End Date Mingo tSreet MD [address] [place] [phone] [email or web address] PCP - General 09/29/15 Nomi Olea MD [address] [place] [phone] PCP - External Follow Up A 04/03/14 Pedro Comer MD [address] [place] [address] PCP - External Follow Up B 04/20/14 Kimber Mendoza MD [address] [place] [phone] [email or web address] PCP - External Follow Up C Internal Medicine 11/08/21 Haresh Venegas MD [email or web address] Nurse Practitioner 10/06/15 Magnolia Holden MD [address] [place] [phone] [email or web address] Physician 10/06/15 Prince Schreiber APRN [address] [place] [phone] [email or web address] Nurse Practitioner 10/06/15 Darnell Wellington MD [address] [place] [phone] [email or web address] Physician 10/06/15 Jossue Suresh PA [address] [place] [phone] [email or web address] Physician Organic Gardening Teacher 10/06/[address] MD [address] [place] [phone] [email or web address] Physician 10/06/15 Margarita Chaves PA [address] [place] [phone] [email or web address] Physician Organic Gardening Teacher 10/06/15 Cherrie Johnson APRN [address] [place] [phone] [email or web address] Nurse Practitioner Cancer Prevention 09/16/21 Tigist Morgan MD [address] [place] [phone] [email or web address] Consulting Physician Dermatology 09/26/21 Cleopatra Al MD [address] [place] [phone] [email or web address] Consulting Physician Gynecological Oncology 12/07/16
[2024-05-19] MEDS ORDERED: NA CHLORIDE 0.9% 1,000 ML ONE (08:27)
[2024-05-19] MEDS ORDERED: PROMETHAZINE INJ 25 MG/ML AMP ONE (08:27)
[2024-05-19 08:30] LABS: Absolute Basophils 0.1 K/uL (0-0.5); Absolute Lymphocytes (CBC) 2.7 K/uL (0.7-4.9); Absolute Monocytes 0.6 K/uL (0.1-1.3); Absolute Neutrophil 10.2 K/uL (1.8-8.0); Basophils % 0.5 % (0-1.3); Eosinophils % 0.1 % (0-4.4); Hematocrit 46.9 % (36.0-45.0); Hemoglobin 15.2 g/dL (12.0-15.0); MCH 28.8 pg (27.0-35.0); MCHC 32.4 g/dL (32.0-36.0); MPV 8.8 fL (7.6-11.3); Monocytes % 4.7 % (3.3-12.3); Neutrophils % 74.7 % (41.7-73.7); Nucleated Red Blood Cells % 0.1 % (0-0); Platelets 271 thou/uL (152-406); RBC Red Blood Cell Count 5.27 M/uL (3.86-4.86)
[2024-05-19 08:45] LABS: Albumin 3.1 g/dL (3.4-5.0); Albumin/Globulin Ratio 0.7 (1.1-1.8); Anion Gap 13.6 mEq/L (5.0-15.0); Bilirubin Total 0.6 mg/dL (0.2-1.0); Globulin 4.7 g/dL (2.3-3.5); Potassium 3.6 mEq/L (3.5-5.1); Protein, Total 7.8 g/dL (6.4-8.2)
[2024-05-19] MEDS ORDERED: HALOPERIDOL LACT 5 MG/ML INJ ONE (09:21)
[2024-05-19] MEDS ORDERED: DIPHENHYDRAMINE 50 MG/ML VIAL ONE (09:21)
--- NOTE | 2024-05-19 09:28 | RAD REPORT ---
EXAMINATION: CT Abdomen Pelvis W Contrast CLINICAL INDICATION: Female, 53 years old. ABD PAIN TECHNIQUE: CT abdomen and pelvis was performed, after the administration of IV contrast, as per [facility] protocol. Axial, sagittal and coronal reconstructions were obtained. One or more of the following dose reduction techniques were used: Automated exposure control, adjustment of the mA and k V according to patient size, and iterative reconstruction. Unless otherwise specified, incidental findings do not require dedicated imaging follow-up. COMPARISON: 05/12/2024 FINDINGS: LOWER CHEST: The visualized lung bases are clear. LIVER: Normal in size and contour. No focal lesion. BILIARY SYSTEM: No suspicious abnormalities. SPLEEN: Normal size. No focal lesion. PANCREAS: No mass, ductal dilation, or brandi-pancreatic fluid. ADRENALS: Normal; no mass. KIDNEYS: Normal size and contour. No hydronephrosis. URINARY BLADDER: Unremarkable. GASTROINTESTINAL TRACT: No evidence of free air, significant intra-abdominal free fluid, bowel obstru ction or abscess. APPENDIX: Normal appendix. LYMPH NODES: No lymphadenopathy. MUSCULOSKELETAL: No acute or suspicious osseous abnormality. ADDITIONAL FINDINGS: None. IMPRESSION: No acute or concerning abnormalities seen in the abdomen or pelvis.
[2024-05-19 10:43] LABS: Specific Gravity > 1.030 (1.005-1.030); Sqamous Epithelial None Seen /HPF (None Seen); Urine Bacteria None Seen /HPF (<20); Urine Bilirubin NEGATIVE (Negative); Urine Blood Negative (Negative); Urine Clarity Clear (Clear); Urine Color Light-Yellow (Yellow); Urine Culture Reflex Order NOT NEEDED; Urine Glucose NEGATIVE (Negative); Urine Ketones NEGATIVE (Negative); Urine Micro Reflex YN NO BILL MICROSCOPIC; Urine Mucus Slight /HPF (None Seen); Urine Nitrite NEGATIVE (Negative); Urine Protein TRACE (Negative); Urine RBC <5 /HPF (None Seen); Urine Urobilinogen Normal (Normal); Urine WBC None Seen /HPF (<5); Urine pH 8.5 (5.0-7.0)
--- NOTE | 2024-05-19 11:05 | EDPHYS ---
Physician Documentation [facility] Name: Lianne Medina Age: 53 yrs Sex: Female : 1970 Arrival Date: 05/19/2024 Time: 08:05 Bed 17 Private MD: NIKKY Physician Javier Butt HPI: 05/19 08:33 This 53 yrs old Female presents to ER via EMS with complaints of Nausea/Vomiting. sb4 08:33 The patient presents to the emergency department with nausea, vomiting, abdominal pain. sb4 Onset: The symptoms/episode began/occurred 2 day(s) ago. Possible causes: flare up of bowel problem, gastroparesis, ileus. The symptoms are aggravated by nothing. The symptoms are alleviated by nothing. Associated signs and symptoms: The patient has no apparent associated signs or symptoms. The patient has experienced similar episodes in the past, multiple times, today's symptoms are similar. Patient with history of multiple abdominal surgeries, gastroparesis and cyclic vomiting syndrome presents with complaints of nausea, vomiting, and abdominal pain. States symptoms began 2 days ago. She was recently admitted here for similar symptoms and diagnosed with an ileus. She was discharged 4 days ago after her symptoms resolved. Was recommended to follow-up with general surgery. 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 - , Not mb9 Historical: - Allergies: 08:09 Celecoxib; mb9 08:09 cyclobenzaprine HCl; mb9 08:09 CYCLOSPORINE; mb9 08:09 divalproex; mb9 08:09 Fentanyl; mb9 08:09 levetiracetam; mb9 08:09 Lorazepam; mb9 08:09 Metoclopramide; mb9 08:09 PENICILLINS; mb9 08:09 PENTAZOCINE; mb9 08:09 Phenytoin; mb9 08:09 Prochlorperazine; mb9 08:09 Sulfa (Sulfonamide Antibiotics); mb9 08:09 TETRACYCLINES; mb9 08:09 Tizanidine; mb9 08:09 Toradol; mb9 08:09 tramadol; mb9 - Home Meds: 08:19 tizanidine 2 mg Oral tablet every 8 hours [Active]; esomeprazole magnesium 20 mg Oral mb9 capsule daily [Active]; gabapentin 300 mg Oral capsule 3 caps 3 times per day [Active]; fluticasone propionate 50 mcg/actuation intranasal spray daily [Active]; dicyclomine 10 mg Oral capsule 3 times per day [Active]; albuterol sulfate 90 mcg/actuation Inhl HFA Aerosol Inhaler [Active]; - PMHx: 08:09 brain aneurysm; prolapsed bladder; Cancer; Multiple Sclerosis; Hernia; brain tumor x 5; mb9 - Immunization history:: Adult Immunizations up to date. - Infectious Disease History:: Denies. - Social history:: Smoking status: Patient denies any tobacco usage or history of. ROS: 08:33 Constitutional: Negative for fever, chills, and weight loss, sb4 08:33 Abdomen/GI: Positive for abdominal pain, nausea and vomiting, 08:33 All other systems are negative, Exam: 08:33 Head/Face: Normocephalic, atraumatic. Eyes: Extra-ocular motions intact. Periorbital sb4 areas with no swelling, redness, or edema. Cardiovascular: Regular rate and rhythm with a normal S1 and S2. Respiratory: No increased work of breathing, no retractions or nasal flaring. Skin: Warm, dry with normal turgor. Normal color with no rashes, no lesions, and no evidence of cellulitis. 08:33 Constitutional: The patient appears alert, awake, anxious, in obvious distress, Dry heaving 08:33 Abdomen/GI: Inspection: abdomen appears normal, Bowel sounds: normal, Palpation: soft, mild abdominal tenderness, in all quadrants, Vital Signs: 08:07 BP 162 / 95; Pulse 95; Resp 16; Temp 97.9(O); Pulse Ox 99% ; Weight 90.72 kg; Height 5 mb9 ft. 5 in. ; Pain 10/10; 09:46 BP 157 / 110; Pulse 88; Resp 16; Pulse Ox 98% on R/A; mb9 08:07 Body Mass Index 33.28 (90.72 kg, 165.1 cm) mb9 08:07 Pain Scale: Adult mb9 MDM: 08:09 Medical Screening Exam initiated sb4 08:55 Data reviewed: vital signs, nurses notes, EMS record, lab test result(s), radiologic sb4 studies, CT scan. 10:58 ED course: Getterer checked, norco 7.5 30 day supply filled on 05/16. sb4 10:59 Counseling: I had a detailed discussion with the patient and/or guardian regarding the 4 historical points, exam findings, and any diagnostic results supporting the discharge/admit diagnosis, the presence of at least one elevated blood pressure reading (>120/80) during this emergency department visit, lab results, radiology results, the need for outpatient follow up, for definitive care, a general surgeon. 11:09 ED course: n/v has resolved. has appointment with espinoza in 1 week. has norco 7.[address] [facility]. will provide script for rectal Phenergan. 05/19 08:10 Order name: CBC with Diff; Complete Time: 08:33 sb4 05/19 08:10 Order name: CMP; Complete Time: 08:46 sb4 05/19 08:10 Order name: Lipase; Complete Time: 08:46 sb4 05/19 09:31 Order name: UAM; Complete Time: 10:44 sb4 05/19 08:46 Order name: CT Abd/Pelvis - IV Contrast Only; Complete Time: 09:30 sb4 05/19 08:10 Order name: IV Saline Lock; Complete Time: 08:18 sb4 05/19 08:10 Order name: Labs collected and sent; Complete Time: 08:18 sb4 05/19 10:24 Order name: PO challenge; Complete Time: 10:38 sb4 05/19 10:27 Order name: Straight Cath - Urine; Complete Time: 10:27 mb9 Administered Medications: 08:35 Drug: NS 0.9% IV 1000 ml IV at 1 bolus Per protocol; to be given as a bolus over 60 mb9 minutes Route: IV; Rate: 1 bolus; Site: right antecubital; 10:16 Follow up: Response: No adverse reaction; IV Status: Completed infusion mb9 08:35 Drug: Promethazine IVP 25 mg IVP once Route: IVP; Site: right antecubital; mb9 10:15 Follow up: Response: No adverse reaction mb9 09:20 Drug: Haloperidol IVP 2.5 mg IVP once Route: IVP; Site: right antecubital; mb9 10:15 Follow up: Response: No adverse reaction mb9 09:26 Drug: diphenhydrAMINE IVP 25 mg IVP once Route: IVP; Site: right antecubital; mb9 10:15 Follow up: Response: No adverse reaction mb9 Disposition: 12:43 Co-signature as Attending Physician, Javier Butt MD I reviewed the patient's care rt provided by the Advanced Practice Provider and agree with the diagnosis and treatment plan. Disposition Summary: 05/19/24 11:05 Discharge Ordered Notes: Location: Home sb4 Problem: an acute exacerbation sb4 Symptoms: are resolved sb4 Condition: Stable sb4 Diagnosis - Nausea with vomiting, unspecified sb4 Followup: sb4 - With: Michael Pagan MD - When: 1 week - Reason: Recheck today's complaints, Re-evaluation by your physician Discharge Instructions: - Discharge Summary Sheet sb4 - Nausea and Vomiting, Adult sb4 Forms: - Patient Portal Instructions sb4 - Leadership Thank You Letter sb4 Prescriptions: - promethazine 50 mg Rectal suppository - insert 1 suppository RECTAL route every 4 to 6 hours as needed for sb4 nausea/vomiting; 20 suppository; Refills: 0, Product Selection Permitted Signatures: Dispatcher [employer] EDOnelia Santacruz PA-C PA-C sb4 Barb Rosa RN RN mb9 Javier Butt MD MD rt
--- NOTE | 2024-05-19 11:05 | ER ---
Nurse's Notes [facility] Name: Lianne Medina Age: 53 yrs Sex: Female : 1970 Arrival Date: 05/19/2024 Time: 08:05 Bed 17 Private MD: Diagnosis: Nausea with vomiting, unspecified Presentation: 05/19 08:07 Chief complaint: EMS states: "toned out for N/V x 2 days and pain to the LLQ. Pt states mb9 she is also out of pain medication.". Coronavirus screen: Vaccine status: Patient reports receiving the 2nd dose of the covid vaccine. Ebola Screen: No symptoms or risks identified at this time. Initial Sepsis Screen: Does the patient meet any 2 criteria? No. Patient's initial sepsis screen is negative. Does the patient have a suspected source of infection? No. Patient's initial sepsis screen is negative. Risk Assessment: Do you want to hurt yourself or someone else? Patient reports no desire to harm self or others. Onset of symptoms was May 19, 2024. 08:07 Acuity: BRANDEN 3 mb9 08:07 Method Of Arrival: EMS: [facility] mb9 Triage Assessment: 08:10 General: Appears uncomfortable, Behavior is cooperative, anxious. Pain: Complains of mb9 pain in abdomen Pain radiates to LLQ Pain currently is 10 out of 10 on a pain scale. Quality of pain is described as throbbing, Pain began gradually. EENT: No signs and/or symptoms were reported regarding the EENT system. Neuro: Benites Agitation-Sedation Scale (RASS): 0 - Alert and Calm Level of Consciousness is awake, alert, obeys commands, Oriented to person, place, time, situation, Appropriate for age. Cardiovascular: Patient's skin is warm and dry. Respiratory: Airway is patent Respiratory effort is even, unlabored, Respiratory pattern is regular, symmetrical. GI: Abdomen is round non-distended, Abd is soft Abdomen is tender to palpation in left upper quadrant and left lower quadrant Reports gaseousness, nausea, vomiting. : No signs and/or symptoms were reported regarding the genitourinary system. Derm: Skin is pink, warm \\T\\ dry. Musculoskeletal: Range of motion: intact in all extremities. 08:10 GI: Bowel sounds present X 4 quads. 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 - , Not mb9 Historical: - Allergies: 08:09 Celecoxib; mb9 08:09 cyclobenzaprine HCl; mb9 08:09 CYCLOSPORINE; mb9 08:09 divalproex; mb9 08:09 Fentanyl; mb9 08:09 levetiracetam; mb9 08:09 Lorazepam; mb9 08:09 Metoclopramide; mb9 08:09 PENICILLINS; mb9 08:09 PENTAZOCINE; mb9 08:09 Phenytoin; mb9 08:09 Prochlorperazine; mb9 08:09 Sulfa (Sulfonamide Antibiotics); mb9 08:09 TETRACYCLINES; mb9 08:09 Tizanidine; mb9 08:09 Toradol; mb9 08:09 tramadol; mb9 - Home Meds: 08:19 tizanidine 2 mg Oral tablet every 8 hours [Active]; esomeprazole magnesium 20 mg Oral mb9 capsule daily [Active]; gabapentin 300 mg Oral capsule 3 caps 3 times per day [Active]; fluticasone propionate 50 mcg/actuation intranasal spray daily [Active]; dicyclomine 10 mg Oral capsule 3 times per day [Active]; albuterol sulfate 90 mcg/actuation Inhl HFA Aerosol Inhaler [Active]; - PMHx: 08:09 brain aneurysm; prolapsed bladder; Cancer; Multiple Sclerosis; Hernia; brain tumor x 5; mb9 - Immunization history:: Adult Immunizations up to date. - Infectious Disease History:: Denies. - Social history:: Smoking status: Patient denies any tobacco usage or history of. Screenin:11 [facility] ED Fall Risk Assessment (Adult) History of falling in the last 3 months, mb9 including since admission No falls in past 3 months (0 pts) Confusion or Disorientation No (0 pts) Intoxicated or Sedated No (0 pts) Impaired Gait Yes (1 pt) Mobility Assist Device Used Yes (1 pt) Altered Elimination No (0 pt) Score/Fall Risk Level 3 or more points = High Risk Oriented to surroundings, Maintained a safe environment, Educated pt \\T\\ family on fall prevention, incl call for assistance when getting out of bed. Abuse screen: Denies threats or abuse. Nutritional screening: No deficits noted. Tuberculosis screening: No symptoms or risk factors identified. Assessment: 08:11 Reassessment: see triage assessment. mb9 09:46 Reassessment: Patient appears in no apparent distress at this time. Patient states mb9 feeling better. Patient states symptoms have improved. 10:14 Reassessment: pt refusing to keep SPO2 monitor and BP cuff on. Unable to update VS at mb9 this time. 10:53 Reassessment: Pt passed PO challenge. ERP notified. mb9 11:06 Reassessment: Patient appears in no apparent distress at this time. Patient and/or mb9 family updated on plan of care and expected duration. Pain level reassessed. Patient is alert, oriented x 3, equal unlabored respirations, skin warm/dry/pink. Vital Signs: 08:07 BP 162 / 95; Pulse 95; Resp 16; Temp 97.9(O); Pulse Ox 99% ; Weight 90.72 kg; Height 5 mb9 ft. 5 in. ; Pain 10/10; 09:46 BP 157 / 110; Pulse 88; Resp 16; Pulse Ox 98% on R/A; mb9 08:07 Body Mass Index 33.28 (90.72 kg, 165.1 cm) mb9 08:07 Pain Scale: Adult mb9 ED Course: 08:07 Patient arrived in ED. mb9 08:07 Arm band placed on. mb9 08:09 Onelia Sesay PA-C is PHCP. sb4 08:09 Javier Butt MD is Attending Physician. sb4 08:09 Triage completed. mb9 08:11 No provider procedures requiring assistance completed. mb9 08:12 Barb Rosa, VITA is Primary Nurse. mb9 08:12 Placed in gown. Bed in low position. Call light in reach. Side rails up X 1. Provided mb9 Education on: press call light if needing anything. Client placed on continuous cardiac and pulse oximetry monitoring. NIBP monitoring applied. 08:18 CBC with Diff Sent. mb9 08:18 CMP Sent. mb9 08:19 Lipase Sent. mb9 08:19 Initial lab(s) drawn, by ED staff, sent to lab. Inserted saline lock: 22 gauge in right mb9 antecubital area, using aseptic technique. Blood collected. Flushed with 10 mL NS. 08:46 Patient requests pain medication. mb9 09:13 CT Abd/Pelvis - IV Contrast Only In Process Unspecified. EDMS 10:38 UAM Sent. mb9 10:38 Urine collected: straight cath specimen, clear. mb9 10:38 Straight cath inserted, using sterile technique, 14 Fr. Specimen obtained. Returned mb9 clear yellow urine. Patient tolerated well. 10:54 Patient requests pain medication. mb9 11:04 Michael Pagan MD is Referral Physician. sb4 11:06 IV discontinued, intact, bleeding controlled, No redness/swelling at site. Pressure mb9 dressing applied. Administered Medications: 08:35 Drug: NS 0.9% IV 1000 ml IV at 1 bolus Per protocol; to be given as a bolus over 60 mb9 minutes Route: IV; Rate: 1 bolus; Site: right antecubital; 10:16 Follow up: Response: No adverse reaction; IV Status: Completed infusion mb9 08:35 Drug: Promethazine IVP 25 mg IVP once Route: IVP; Site: right antecubital; mb9 10:15 Follow up: Response: No adverse reaction mb9 09:20 Drug: Haloperidol IVP 2.5 mg IVP once Route: IVP; Site: right antecubital; mb9 10:15 Follow up: Response: No adverse reaction mb9 09:26 Drug: diphenhydrAMINE IVP 25 mg IVP once Route: IVP; Site: right antecubital; mb9 10:15 Follow up: Response: No adverse reaction mb9 Medication: 08:11 VIS not applicable for this client. mb9 Outcome: 11:05 Discharge ordered by . sb4 11:06 Discharged to home via wheelchair, with family, mb9 11:06 Condition: stable 11:06 Discharge instructions given to patient, family, Instructed on discharge instructions, follow up and referral plans. Demonstrated understanding of instructions, follow-up care, medications, Prescriptions given X 1, 11:12 Patient left the ED. mb9 Signatures: Dispatcher [employer] EDMS Onelia Sesay PA-C PA-C sb4 Barb Rosa RN RN mb9 Corrections: (The following items were deleted from the chart) 08:47 08:10 Pain: Complains of pain in abdomen Pain radiates to LLQ Pain currently is 10 out mb9 of 10 on a pain scale. Quality of pain is described as throbbing, Pain began gradually, mb9 10:16 08:07 BP 162 / 95; Pulse 95bpm; Resp 16bpm; Pulse Ox 99%; 90.72 kg; Height 5 ft. 5 in.; mb9 BMI: 33.2; Pain 05/08, Adult; mb9
[2024-05-19 11:56] VITALS: TEMP 97.9
[2024-05-19 12:03] VITALS: BP 157/110; O2SAT 98
== END 2024-05-19 11:12 | disposition home or self-care (01) ==
LOC: ER 08:05
DX: R11.2 Nausea with vomiting, unspecified (principal); R10.9 Unspecified abdominal pain
CPT/HCPCS: 96361; 85025; 81001; 36415; 83690; 80053; 74177; 51702; 96375; 96374; 99285; Q9967; J2550; J1630; J1200; J7030

== ENCOUNTER 2024-05-27 14:07 | Inpatient (IN) | payer OTHER ==
--- OUTSIDE RECORDS SUMMARY | 2024-05-27 14:09 | XMS REPORT | Clinical Summary ---
Author Name Unknown Organization [facility] Address [address] [place] [address] Care Team Providers Care Lead Programmer Analyst Name Role Phone Mingo Street MD Primary Care Provider Nomi Olea MD Unavailable [phone] Pedro Comer MD Unavailable Haresh Venegas MD Unavailable [email or web address] Magnolia Holden MD Unavailable Prince Abdoul WAITER Unavailable [phone] Darnell Wellington MD Unavailable [phone] Jossue Suresh Unavailable Mingo Street MD Unavailable [phone] Margarita Chaves Unavailable [phone] Kimber Mendoza MD Unavailable Cherrie Johnson WAITER Unavailable [phone] Tigist Morgan MD Unavailable Cleopatra Al MD Unavailable [phone] Allergies Active Allergy Reactions Criticality Noted [...] High 08/20/2021 Per patient throat closes up [place] Analogues Other (See Comments) 01/21/20 16 Penicillins [...] Take by mouth. 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 2016 Post-traumatic stress disorder 11/01/2016 Mild cognitive disorder 11/01/2016 Adjustment disorder with physical complaints 11/2016 Hyponatremia 10/31/2016 Melena 10/31/2016 Endometriosis 10/31/2016 Urinary tract infection 10/31/2016 Colitis 10/31/2016 Chronic pain syndrome 10/31/2016 Tobacco use 10/31/2016 Anemia of chronic disease 10/31/2016 Headache 10/31/2016 Abdominal pain, generalized 04/13/2016 Generalized anxiety disorder 04/13/2016 Surgical History Surgery Date Site/Laterality Comments BREAST RECONSTRUCTION MI ESOPHAGOGASTRODUODENOSCOP Y TRANSORAL DIAGNOSTIC 11/02/2016 Esophagus/N/A Procedure: DIAGNOSTIC UPPER GASTROINTESTINAL ENDOSCOPY; Surgeon: Apoorva Wen MD; Location: MAIN ENDOSCOPY; Service: GASTROENTEROLOGY MI COLONOSCOPY FLX DX W/JEANETTE J SPEC WHEN PFRMD 11/02/2016 N/A Procedure: DIAGNOSTIC FLEXIBLE COLONOSCOPY PROXIMAL TO SPLENIC FLEXURE; Surgeon: Apoorva Wen MD; Location: MAIN ENDOSCOPY; Service: GASTROENTEROLOGY COLONOSCOPY 07/30/1998 - 07/29/1999 EXPLORATORY LAPAROTOMY [id number] HYSTERECTOMY [id number] UPPER GASTROINTESTINAL ENDOSCOPY - 07/29/1999 Medical History Medical History Date Comments Stroke Seizure Myocardial infarction 1998 Hyperlipidemia Irregular heart beat Migraine 1982 Multiple sclerosis 1970 Traumatic brain injury [id number] Allergic rhinitis 9594-0509 Sinusitis 8011-0692 Difficulty talking 2016 Tooth disorder 2012 Swallowing problem 2003 Chronic bronchitis 9304-1568 Asbestosis 2806-1625 Pneumonia 2004 Gastric reflux 1987 Colitis [address] cheikh ve different diagnosis Celiac disease 2006 Malabsorption syndrome 1982 Diverticulitis [id number] Irritable bowel syndrome 1999 Renal stone 1981 History of recurrent urinary tract infection 1987 Urinary incontinence 7385-0492 Sexual dysfunction [id number] Abnormal uterine bleeding un related to menstrual cycle 8865-0866 Polycystic ovarian syndrome [address] Endometriosis 5672-5592 Dr Nahomi ramirez d endo had traveled to other organs,hips, sp Anemia 2008 Blood transfusion, without r eported diagnosis 1981 Size J, breast total reconst uction Osteoporosis 2009 Osteomyelitis 1994 Breake of wrist had to take antibiotics Anxiety 3520-1370 do not have anxi ety or panic attacks since 2003 Psoriasis 1970-current Endometrial carcinoma Cancer - 1 990's Multiple sclerosis 11/27/[address] Citlali reeves Neurologist in [place] (Pt reported) Family History Medical History Relation Name Comments -Other cancer Father [place] 1981-? Bone ca [email or web address] Father [place] Melanoma Father [...] Raji Colon cancer Paternal Aunt 1 Billelissaue Arji Ovarian cancer Paternal Aunt 1 Billelissaue Raji Kidney cancer Paternal Aunt 2 Debbielynn Lung cancer Paternal Grandfather Demar d Mesothelioma Paternal Grandfather Demar d Multiple Myeloma Paternal Grandfather Demar Dec eased 1968 Bile duct cancer Paternal Grandmother Hunt Liver cancer Paternal Grandmother Hunt Stomach cancer Paternal Grandmother Hunt Brain cancer Paternal Uncle Prashant -Unknown cancer Sister [place] Graves' disease Sister [place] Uterine cancer Sister [place] Vaginal cancer Sister [place] Relation Name Status Comments Father [place] Maternal Aunt Debbielynn Maternal Grandfather Prashant Diazp Mother [place] Paternal Aunt 1 Billysue Raji Paternal Aunt 2 Debbielynn Paternal Grandfather Demar Paternal Grandmother Hunt Paternal Uncle Prashant Sister [place] Social History Tobacco Use Types Packs/Day Years [...] CDT Gender Identity Female 09/14/2021 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 PCP - General 09/29/15 Nomi Olea MD [address] [place] [id number] PCP - External Follow Up A 04/03/14 Pedro Comer MD [address] [facility] [address] [place] [address] PCP - External Follow Up B 04/20/14 Kimber Mendoza MD [address] [place] [id number] [email or web address] PCP - External Follow Up C Internal Medicine 11/08/21 Haresh Venegas MD [email or web address] Nurse Practitioner 10/06/15 Magnolia Holden MD [address] [place] [phone] [email or web address] Physician 10/06/15 Prince Schreiber APRN [address] [place] [phone] [email or web address] Nurse Practitioner 10/06/15 Darnell Wellington MD [address] [place] [phone] [email or web address] Physician 10/06/15 Jossue Suresh PA [address] [place] [phone] [email or web address] Physician Printing Plate Setter 10/06/[address] MD [address] [place] [phone] [email or web address] Physician 10/06/15 Margarita Chaves PA [address] [place] [phone] [email or web address] Physician Printing Plate Setter 10/06/15 Cherrie Johnson APRN [address] [place] [phone] [email or web address] Nurse Practitioner Cancer Prevention 09/16/21 Tigist Morgan MD [address] [place] [phone] [email or web address] Consulting Physician Dermatology 09/26/21 Cleopatra Al MD [address] [place] [phone] [email or web address] Consulting Physician Gynecological Oncology 12/07/16
[2024-05-27] MEDS ORDERED: ONDANSETRON 4 MG/2 ML VIAL ONE (15:07)
[2024-05-27] MEDS ORDERED: NA CHLORIDE 0.9% 1,000 ML ONE (15:15)
[2024-05-27 15:22] LABS: Absolute Basophils 0.1 K/uL (0-0.5); Absolute Lymphocytes (CBC) 2.5 K/uL (0.7-4.9); Absolute Monocytes 0.7 K/uL (0.1-1.3); Absolute Neutrophil 13.9 K/uL (1.8-8.0); Basophils % 0.7 % (0-1.3); Eosinophils % 0.1 % (0-4.4); Hemoglobin 15.9 g/dL (12.0-15.0); Lymphocytes % 14.4 % (15.3-44.8); MCH 28.8 pg (27.0-35.0); MCHC 32.5 g/dL (32.0-36.0); MCV 88.6 fL (80-100); MPV 9.4 fL (7.6-11.3); Monocytes % 4.2 % (3.3-12.3); Neutrophils % 80.6 % (41.7-73.7); Platelets 307 thou/uL (152-406); RBC Red Blood Cell Count 5.54 M/uL (3.86-4.86); Red Cell Distribution Width 16.7 % (12.1-15.2)
[2024-05-27] MEDS ORDERED: PROMETHAZINE INJ 25 MG/ML AMP ONE (15:44)
--- NOTE | 2024-05-27 15:58 | RAD REPORT ---
EXAMINATION: CT Abdomen Pelvis W Contrast CLINICAL INDICATION: Female, 53 years old. ABD PAIN TECHNIQUE: CT abdomen and pelvis was performed, after the administration of IV contrast, as [facility]. Axial, sagittal and coronal reconstructions were obtained. One or more of the following dose reduction techniques were used: Automated exposure control, adjustment of the mA and k V according to patient size, and iterative reconstruction. Unless otherwise specified, incidental findings do not require dedicated imaging follow-up. COMPARISON: 05/19/2024. FINDINGS: LOWER CHEST: The visualized lung bases are clear. LIVER: Normal in size and contour. No focal lesion. BILIARY SYSTEM: No suspicious abnormalities. SPLEEN: Normal size. No focal lesion. PANCREAS: No mass, ductal dilation, or brandi-pancreatic fluid. ADRENALS: Normal; no mass. KIDNEYS: Normal size and contour. No hydronephrosis. URINARY BLADDER: decompressed limiting evaluation. GASTROINTESTINAL TRACT: No evidence of free air, significant intra-abdominal free fluid, bowel obstru ction or abscess. APPENDIX: Normal appendix. LYMPH NODES: No lymphadenopathy. MUSCULOSKELETAL: No acute or suspicious osseous abnormality. ADDITIONAL FINDINGS: None. IMPRESSION: No acute or concerning abnormalities seen in the abdomen or pelvis.
[2024-05-27 16:28] LABS: Urine Bacteria <20 /HPF (<20); Urine Bilirubin NEGATIVE (Negative); Urine Blood Negative (Negative); Urine Clarity Clear (Clear); Urine Color Yellow (Yellow); Urine Culture Reflex Order NOT NEEDED; Urine Glucose NEGATIVE (Negative); Urine Ketones 4+ (Negative); Urine Microscopic Reflex YN ORDER UMIC; Urine Mucus Slight /HPF (None Seen); Urine Nitrite NEGATIVE (Negative); Urine Protein 1+ (Negative); Urine RBC <5 /HPF (None Seen); Urine Urobilinogen Normal (Normal); Urine WBC <5 /HPF (<5); Urine pH 7.5 (5.0-7.0)
[2024-05-27 16:30] LABS: Specific Gravity > 1.030 (1.005-1.030)
[2024-05-27 16:43] LABS: Albumin 2.8 g/dL (3.4-5.0); Albumin/Globulin Ratio 0.7 (1.1-1.8); Anion Gap 16.9 mEq/L (5.0-15.0); Bilirubin Total 0.8 mg/dL (0.2-1.0); Globulin 4.2 g/dL (2.3-3.5)
[2024-05-27 16:44] LABS: Potassium 2.9 mEq/L (3.5-5.1)
--- NOTE | 2024-05-27 16:58 | ER ---
Nurse's Notes [facility] Name: Lianne Medina Age: 53 yrs Sex: Female : 1970 Arrival Date: 05/27/2024 Time: 14:07 Bed 20 Private MD: Diagnosis: Dehydration, gastroenteritis, hypokalemia, lactic acidosis Presentation: 05/27 14:25 Chief complaint: Patient states: epigastric pain and vomiting since this morning , has iw hx of gastroparesis , has burning pain. Coronavirus screen: At this time, the client does not indicate any symptoms associated with coronavirus-19. Ebola Screen: No symptoms or risks identified at this time. Initial Sepsis Screen: Does the patient meet any 2 criteria? HR > 90 bpm. Does the patient have a suspected source of infection?. Risk Assessment: Do you want to hurt yourself or someone else? Patient reports no desire to harm self or others. Onset of symptoms was May 27, 2024. 14:25 Method Of Arrival: Wheelchair iw 14:25 Acuity: BRANDEN 3 iw Historical: - Allergies: 14:27 Celecoxib; iw 14:27 cyclobenzaprine HCl; iw 14:27 CYCLOSPORINE; iw 14:27 divalproex; iw 14:27 Fentanyl; iw 14:27 levetiracetam; iw 14:27 Lorazepam; iw 14:27 Metoclopramide; iw 14:27 PENICILLINS; iw 14:27 PENTAZOCINE; iw 14:27 Phenytoin; iw 14:27 Prochlorperazine; iw 14:27 Sulfa (Sulfonamide Antibiotics); iw 14:27 TETRACYCLINES; iw 14:27 Tizanidine; iw 14:27 Toradol; iw 14:27 tramadol; iw 14:27 Benadryl; makes her RLS bad; iw - PMHx: 14:28 brain aneurysm; Multiple Sclerosis; Hernia; Cancer; brain tumor x 5; prolapsed bladder; iw - Immunization history:: Adult Immunizations not up to date. - Infectious Disease History:: Denies. - Social history:: Smoking status: Patient reports the use of cigarette tobacco products. Screenin:45 [facility] ED Fall Risk Assessment (Adult) History of falling in the last 3 months, ar6 including since admission No falls in past 3 months (0 pts) Confusion or Disorientation No (0 pts) Intoxicated or Sedated No (0 pts) Impaired Gait No (0 pts) Mobility Assist Device Used Yes (1 pt) Altered Elimination No (0 pt) Score/Fall Risk Level 0 - 2 = Low Risk Oriented to surroundings, Maintained a safe environment, Hourly rounding (assess needs \\T\\ fall precautionary measures) done. Abuse screen: Denies threats or abuse. Denies injuries from another. Nutritional screening: No deficits noted. Tuberculosis screening: No symptoms or risk factors identified. Assessment: 14:45 General: Appears in no apparent distress. uncomfortable, Behavior is anxious, restless. ar6 Pain: Complains of pain in abdomen Pain currently is 10 out of 10 on a pain scale. Pain began 2-3 days ago. Alleviated by nothing. Neuro: Level of Consciousness is awake, alert, obeys commands, Oriented to person, place, time, situation. Cardiovascular: Capillary refill < 3 seconds. Respiratory: Airway is patent. GI: Abdomen is round non-distended, Reports bloating, intolerance of food, nausea, vomiting, since x3 days ago. : Urine is cloudy, pt. reports she has had a UTI and on Cipro, pt. reports she has "has only taken 3 pills.". EENT: Oral mucosa is moist. Derm: Skin is intact, is healthy with good turgor, Skin is dry, Skin is pink, warm \\T\\ dry. Musculoskeletal: No signs and/or symptoms reported regarding the musculoskeletal system. Vital Signs: 13:45 BP 133 / 97; Pulse 91; Resp 20; Pulse Ox 99% on R/A; ar6 14:25 BP 158 / 117; Pulse 106; Resp 18; Temp 96; Pulse Ox 100% on R/A; Weight 77.11 kg; iw Height 4 ft. 11 in. ; Pain 8/10; 14:25 Body Mass Index 34.34 (77.11 kg, 149.86 cm) iw 14:25 Pain Scale: Adult iw ED Course: 14:12 Patient arrived in ED. mg5 14:14 El Fan MD is Attending Physician. sp3 14:27 Triage completed. iw 14:28 Arm band placed on. iw 14:45 Patient has correct armband on for positive identification. Bed in low position. Call ar6 light in reach. Side rails up X2. Provided Education on: plan of care. Client placed on continuous cardiac and pulse oximetry monitoring. NIBP monitoring applied. Door closed. Moved to private room. Warm blanket given. 14:45 No provider procedures requiring assistance completed. Inserted saline lock: 22 gauge ar6 in right antecubital area, using aseptic technique. Blood collected. Flushed with 10 mL NS. 14:52 Crystal Carbajal, RN is Primary Nurse. ar6 15:13 Lactate w/ 2H reflex if indic. Sent. ar6 15:13 CBC with Diff Sent. ar6 15:13 CMP Sent. ar6 15:14 Lipase Sent. ar6 15:18 CT Abd/Pelvis - IV Contrast Only In Process Unspecified. EDMS 16:04 Urinalysis w/ reflexes Sent. ar6 16:57 Matthew Yates is Hospitalizing Provider. sp3 Administered Medications: 17:44 Discontinued: ns 0.9% 1000 ml IV at 1000 ml once; to be given as a bolus over 60 minutesar6 17:43 Discontinued: potassium [id number] meq IV at calculated rate once; administer over 1-2 ar6 hours 15:10 Drug: Ondansetron IVP 4 mg IVP once; over 2 minutes Route: IVP; Site: right antecubital;ar6 15:30 Drug: NS 0.9% IV 1000 ml IV at 1000 ml once; to be given as a bolus over 60 minutes ar6 Route: IV; Rate: 1000 ml; Site: right antecubital; 16:30 Follow up: Response: No adverse reaction; IV Status: Completed infusion; IV Intake: ar6 1000ml 15:53 Drug: Promethazine IVP 12.5 mg IVP once Route: IVP; Site: right antecubital; ar6 17:10 Drug: HYDROmorphone IVP 1 mg IVP once Route: IVP; Site: right antecubital; ar6 17:10 Drug: Potassium Chloride IV 20 mEq IV at calculated rate once; administer over 1-2 ar6 hours Route: IV; Rate: calculated rate; Site: right antecubital; 17:44 Not Given (Patient Refused; pt. reports she does not want anything else in IV): ar6 mg IVPB once Intake: 16:30 IV: 1000ml; Total: 1000ml. ar6 Outcome: 16:57 Decision to Hospitalize by Provider. sp3 19:01 Patient left the ED. ar6 Signatures: Dispatcher [employer] Mallory Ford, VITA RN El Gonzalez MD MD sp3 Yamilet Mendieta 5 Crystal Carbajal RN RN ar6
--- NOTE | 2024-05-27 16:58 | EDPHYS ---
Physician Documentation [facility] Name: Lianne Medina Age: 53 yrs Sex: Female : 1970 Arrival Date: 05/27/2024 Time: 14:07 Bed 20 Private MD: ED Physician El Fan HPI: 05/27 14:52 This 53 yrs old Female presents to ER via Wheelchair with complaints of sp3 Nausea/Vomiting, Abdominal Pain - Feels like Something tore. 14:52 53-year-old male with a history of multiple sclerosis, cerebral mass/cancer history, sp3 recent abdominal complications including ileus with multiple ER visits now presents for recurrent abdominal pain in the epigastric region with concerns of "something tore". Patient is nauseated with a few episodes of emesis without blood or mucus. Patient denies fever, headache, chest pain, shortness of breath, diarrhea, back pain, rash, bleeding, syncope, near syncope, known sick contacts, travel history, or any other signs or symptoms on ROS at this time.. Historical: - Allergies: 14:27 Celecoxib; iw 14:27 cyclobenzaprine HCl; iw 14:27 CYCLOSPORINE; iw 14:27 divalproex; iw 14:27 Fentanyl; iw 14:27 levetiracetam; iw 14:27 Lorazepam; iw 14:27 Metoclopramide; iw 14:27 PENICILLINS; iw 14:27 PENTAZOCINE; iw 14:27 Phenytoin; iw 14:27 Prochlorperazine; iw 14:27 Sulfa (Sulfonamide Antibiotics); iw 14:27 TETRACYCLINES; iw 14:27 Tizanidine; iw 14:27 Toradol; iw 14:27 tramadol; iw 14:27 Benadryl; makes her RLS bad; iw - PMHx: 14:28 brain aneurysm; Multiple Sclerosis; Hernia; Cancer; brain tumor x 5; prolapsed bladder; iw - Immunization history:: Adult Immunizations not up to date. - Infectious Disease History:: Denies. - Social history:: Smoking status: Patient reports the use of cigarette tobacco products. ROS: 14:53 Constitutional: Negative for fever, chills, and weight loss, Eyes: Negative for injury, sp3 pain, redness, and discharge, ENT: Negative for injury, pain, and discharge, Neck: Negative for injury, pain, and swelling, Cardiovascular: Negative for chest pain, palpitations, and edema, Back: Negative for injury and pain, MS/Extremity: Negative for injury and deformity, Skin: Negative for injury, rash, and discoloration, Neuro: Negative for headache, weakness, numbness, tingling, and seizure, Psych: Negative for depression, anxiety, suicide ideation, homicidal ideation, and hallucinations, Allergy/Immunology: Negative for hives, rash, and allergies, Endocrine: Negative for neck swelling, polydipsia, polyuria, polyphagia, and marked weight changes, 14:53 All other systems are negative, Exam: 14:53 Constitutional: This is a well developed, well nourished patient who is awake, alert, sp3 and in no acute distress. Head/Face: Normocephalic, atraumatic. Eyes: Pupils equal round and reactive to light, extra-ocular motions intact. Lids and lashes normal. Conjunctiva and sclera are non-icteric and not injected. Cornea within normal limits. Periorbital areas with no swelling, redness, or edema. Neck: Trachea midline, no thyromegaly or masses palpated, and no cervical lymphadenopathy. Supple, full range of motion without nuchal rigidity, or vertebral point tenderness. No Meningismus. Chest/axilla: Normal chest wall appearance and motion. Nontender with no deformity. No lesions are appreciated. Cardiovascular: Regular rate and rhythm with a normal S1 and S2. No gallops, murmurs, or rubs. Normal PMI, no JVD. No pulse deficits. Respiratory: Lungs have equal breath sounds bilaterally, clear to auscultation and percussion. No rales, rhonchi or wheezes noted. No increased work of breathing, no retractions or nasal flaring. Back: No spinal tenderness. No costovertebral tenderness. Full range of motion. Skin: Warm, dry with normal turgor. Normal color with no rashes, no lesions, and no evidence of cellulitis. MS/ Extremity: Pulses equal, no cyanosis. Neurovascular intact. Full, normal range of motion. Neuro: Awake and alert, GCS 15, oriented to person, place, time, and situation. Cranial nerves II-XII grossly intact. Motor strength 5/5 in all extremities. Sensory grossly intact. Cerebellar exam normal. Normal gait. Psych: Awake, alert, with orientation to person, place and time. Behavior, mood, and affect are within normal limits. 14:53 Abdomen/GI: Epigastric pain to palpation without peritoneal signs, rebound or guarding., Vital Signs: 13:45 BP 133 / 97; Pulse 91; Resp 20; Pulse Ox 99% on R/A; ar6 14:25 BP 158 / 117; Pulse 106; Resp 18; Temp 96; Pulse Ox 100% on R/A; Weight 77.11 kg; iw Height 4 ft. 11 in. ; Pain 8/10; 14:25 Body Mass Index 34.34 (77.11 kg, 149.86 cm) iw 14:25 Pain Scale: Adult iw MDM: 14:35 Medical Screening Exam initiated sp3 14:53 Data reviewed: vital signs, nurses notes, old medical records, lab test result(s), sp3 radiologic studies. ED course: 53-year-old female with PMH above now with abdominal pain recurrent in nature with complex history. Differential diagnosis includes gastritis, recurrent ileus, other intra-abdominal pathology and to a lesser degree MSK and/or ACS type presentation. I am at highly concerned about sepsis or shock. Pulse rate at 106 and patient mildly hypertensive. Will obtain CT scan of the abdomen pelvis, laboratory values, UA and general supportive care. Will later on pain medication if indicated. Disposition pending workup and patient course.. 05/27 14:38 Order name: CBC with Diff; Complete Time: 15:48 sp3 05/27 14:38 Order name: CMP; Complete Time: 16:48 sp3 05/27 14:38 Order name: Lipase; Complete Time: 16:48 sp3 05/27 14:38 Order name: Urinalysis w/ reflexes; Complete Time: 16:39 sp3 05/27 14:38 Order name: Lactate w/ 2H reflex if indic.; Complete Time: 16:39 sp3 05/27 18:24 Order name: Ghost Lactate-NO COLLECT Timer; Complete Time: 18:29 EDMS 05/27 14:38 Order name: CT Abd/Pelvis - IV Contrast Only; Complete Time: 16:02 sp3 05/27 14:38 Order name: IV Saline Lock; Complete Time: 15:13 sp3 05/27 14:38 Order name: Labs collected and sent; Complete Time: 15:13 sp3 05/27 15:20 Order name: Labs - recollect needed: recollect green top; Complete Time: 15:39 bd Administered Medications: 17:44 Discontinued: ns 0.9% 1000 ml IV at 1000 ml once; to be given as a bolus over 60 minutesar6 17:43 Discontinued: potassium krasmith23 meq IV at calculated rate once; administer over 1-2 ar6 hours 15:10 Drug: Ondansetron IVP 4 mg IVP once; over 2 minutes Route: IVP; Site: right antecubital;ar6 15:30 Drug: NS 0.9% IV 1000 ml IV at 1000 ml once; to be given as a bolus over 60 minutes ar6 Route: IV; Rate: 1000 ml; Site: right antecubital; 16:30 Follow up: Response: No adverse reaction; IV Status: Completed infusion; IV Intake: ar6 1000ml 15:53 Drug: Promethazine IVP 12.5 mg IVP once Route: IVP; Site: right antecubital; ar6 17:10 Drug: HYDROmorphone IVP 1 mg IVP once Route: IVP; Site: right antecubital; ar6 17:10 Drug: Potassium Chloride IV 20 mEq IV at calculated rate once; administer over 1-2 ar6 hours Route: IV; Rate: calculated rate; Site: right antecubital; 17:44 Not Given (Patient Refused; pt. reports she does not want anything else in IV): ar6 [id number] mg IVPB once Disposition Summary: 05/27/24 16:57 Hospitalization Ordered Notes: Hospitalization Status: Inpatient Admission sp3 Provider: Matthew Yates sp3 Location: [facility] (Inpatient) sp3 Condition: Stable sp3 Problem: an acute exacerbation sp3 Symptoms: have worsened sp3 Bed/Room Type: Standard sp3 Room Assignment: 407(05/27/24 17:39) ja1 Diagnosis - Dehydration, gastroenteritis, hypokalemia, lactic acidosis sp3 Forms: - Medication Reconciliation Form sp3 - SBAR form sp3 - Leadership Thank You Letter sp3 Signatures: Dispatcher [employer] EDMS Mikaela Christensen Irene, RN RN Marvin Morejon RN RN ja1 El Fan MD MD sp3 Carbajal, Crystal, RN RN ar6 Corrections: (The following items were deleted from the chart) 14:38 14:38 CBC+H.LAB.BRZ ordered. EDMS EDMS 14:38 14:38 COMPREHENSIVE METABOLIC PANEL+C.LAB.BRZ ordered. EDMS EDMS 14:38 14:38 LIPASE+C.LAB.BRZ ordered. EDMS EDMS 14:38 14:38 Urinalysis+U.LAB.BRZ ordered. EDMS EDMS 14:38 14:38 LACTATE+C.LAB.BRZ ordered. EDMS EDMS 14:38 14:38 Abdomen Pelvis W Con+CT.RAD.BRZ ordered. EDMS EDMS 17:32 16:57 sp3 bd 17:39 17:32 408 bd ja1
[2024-05-27] MEDS ORDERED: HYDROMORPHONE HCL 1 MG/ML INJ ONE (16:59)
[2024-05-27] MEDS ORDERED: Levofloxacin500mg IV 500 MG/100 ML BAG IV ONE (17:00)
[2024-05-27] MEDS ORDERED: KCL 20 MEQ/100 mL IVPB 100 ML IV ONE (17:00)
--- NOTE | 2024-05-27 17:33 | P.HP ---
Certification for Inpatient Patient admitted to: Inpatient With expected LOS: >2 Midnights Patient will require the following post-hospital care: None Practitioner: I am a practitioner with admitting privileges, knowledge of patient current condition, hospital course, and medical plan of care. Services: Services provided to patient in accordance with Admission requirements found in Title 42 Section 412.3 of the Code of Federal Regulations Patient History Date of Service: 05/27/24 Reason for admission: Intractable nausea and vomiting History of Present Illness: 53-year-old female with history of hypertension, MS, GERD, COPD, IBS-C, questionable history of gastroparesis presents to the emergency department for chief complaint of nausea/vomiting and abdominal pain. She has had multiple similar admissions in the past and is thought to suffer with gastroenteritis. She had an ileus recently earlier this month. She was evaluated in the emergency department her labs are significant for a white blood cell count of 17.2 hemoglobin 15.9 hematocrit 49 potassium 2.9 lactic acid 2.[address] abdomen pelvis was performed and negative for acute findings. Patient still with significant abdominal pain, persistent nausea vomiting. Will need to be admitted for further evaluation and management of intractable nausea vomiting and suspected gastroparesis flare. Allergies Penicillins Allergy (Severe, Verified 05/12/24 23:50) anaphalxis cyclobenzaprine HCl [From Flexeril] Allergy (Intermediate, Verified 05/12/24 23:50) sob Sulfa (Sulfonamide Antibiotics) [Sulfa(Sulfonamide Antibiotics)] Allergy (Intermediate, Verified 05/12/24 23:50) anaphalxis tramadol HCl [From Ultram] Allergy (Intermediate, Verified 05/12/24 23:50) hives, sob tetracycline [Tetracycline] Allergy (Mild, Verified 05/12/24 23:50) anaphalyxis celecoxib Allergy (Verified 05/12/24 23:50) Unknown cyclosporine Allergy (Verified 05/13/24 08:01) Anaphylaxis divalproex sodium Allergy (Verified 05/13/24 08:01) Anaphylaxis levetiracetam Allergy (Verified 05/12/24 23:50) Unknown lorazepam Adverse Reaction (Mild, Verified 05/13/24 00:35) Unknown metoclopramide [From Reglan] Adverse Reaction (Verified 05/13/24 08:01) Rash Home Medications: Promethazine HCl 1 tab PO Q12HR PRN 04/03/18 Atorvastatin Calcium 10 mg PO DAILY 08/04/22 Gabapentin 900 mg PO TID 08/04/22 Ondansetron [Zofran (Odt)*] 4 mg PO Q8H PRN 08/04/22 Budesonide/Glycopyr/Formoterol [Breztri Aerosphere Inhaler] 2 puff IH BID 08/21/23 Spironolactone [Aldactone*] 25 mg PO BID #60 tab 08/21/23 Tizanidine HCl 2 mg PO Q8H 08/21/23 Esomeprazole Magnesium [Nexium 24Hr] 20 mg PO BREAKFAST 11/24/23 Hydrocodone/Acetaminophen [Hydrocodone-Acetamin 7.5-325] 1 tab PO Q8HR 11/24/23 Lidocaine 4% Patch [Lidoderm 5% Patch*] 1 patch TD DAILY 11/24/23 Linaclotide [Linzess] 1 cap PO DAILY PRN 11/24/23 Nortriptyline HCl [Pamelor] 50 mg PO BEDTIME 11/24/23 Quetiapine Fumarate [Seroquel] 50 mg PO BEDTIME 11/24/23 Tirzepatide [Mounjaro] 10 mg SQ EVERY 7TH DAY 11/24/23 Nystatin Powder [Mycostatin (Powder)*] 15 appl TOP BID 7 Days #1 btl 11/28/23 Albuterol Sulfate [Ventolin Hfa] 2 puff IH Q6HP PRN 02/12/24 Ibuprofen 400 mg PO Q4HP PRN 02/12/24 carvediloL [Coreg] 25 mg PO BID 02/12/24 Sucralfate [Carafate*] 10 ml PO QID 10 Days #1 bottle 04/17/24 - Past Medical/Surgical History Diabetic: No -: cancer -: prlapsed bladder -: brain tumor x 5 -: MS -: IBSC -: endometriosis -: Gastroparesis -: Multiple abdominal surgeriesendometriosis -: -: Breast reconstruction Psychosocial/ Personal History: Patient is disabled, lives at home with her /daughter. - Family History Father -: Hypertension Mother -: Other (see notes) Notes: thyroid problems - Social History Smoking Status: Current every day smoker Alcohol use: No CD- Drugs: No Caffeine use: Yes Place of Residence: Home Review of Systems 10-point ROS is otherwise unremarkable Gastrointestinal: Nausea, Vomiting, Abdominal Pain Physical Examination - Physical Exam General: Alert, In no apparent distress, Oriented x3 HEENT: Atraumatic, PERRLA, Mucous membr. moist/pink Neck: Supple, 2+ carotid pulse no bruit, No LAD Respiratory: Clear to auscultation bilaterally, Normal air movement Cardiovascular: Regular rate/rhythm, Normal S1 S2 Gastrointestinal: Normal bowel sounds, Other (Actively vomiting), Tenderness (Mild abdominal tendernessgeneralized) Musculoskeletal: No tenderness Integumentary: No rashes Neurological: Normal speech, Normal strength at 5/5 x4 extr, Normal tone, Normal affect - Studies Laboratory Data (last 24 hrs) 05/27/24 05/27/24 16:10 15:09 WBC 17.20 H Hgb 15.9 H Hct 49.0 H Plt Count 307 Sodium 136 Potassium 2.9 L BUN 5 L Creatinine 0.66 Glucose 107 H Total Bilirubin 0.8 AST 23 ALT 26 Alkaline Phosphatase 91 Lipase 15 Assessment and Plan - Plan Assessment: Intractable nausea/vomiting Reported history of gastroparesis History of IBS-C Hypokalemia Diabetes mellitus type [id number] Hypertension GERD COPD Multiple sclerosis Plan: Intractable nausea/vomiting Reported history of gastroparesis History of IBS-C Hypokalemia N.p.o., advance as tolerated Twice daily PPI Allergic to Reglan-reports she may have had a gastric emptying study in the year [address] Shen Considered gastric emptying study when patient is tolerating p.o. In October patient was admitted here for similar complaint and treated with sucralfate, erythromycin prior to discharge Electrolyte protocols in place Diabetes mellitus type [id number]-trlvhlbte ACHS Accu-Chek, sliding scale insulin Hypertension GERD COPD Multiple sclerosis Continue home medications when verified DVT PPX: Lovenox Code status: Full Discharge Plan: Home Plan to discharge in: Greater than 2 days Discharge Plan: Home Plan to discharge in: Greater than 2 days - Advance Directives Does patient have a Living Will: No Does patient have a Durable POA for Healthcare: No - Code Status/Comfort Care Code Status Assessed: Yes (Full code) Critical Care: No Time Spent Managing Pts Care (In Minutes): 70
[2024-05-27] MEDS ORDERED: SODIUM CHLORIDE 0.9% 10ML INJ IV PRN (19:16)
[2024-05-27] MEDS: INSULIN REGULAR (HUMAN) 100 UNIT/ML SQ SCH (19:16)
[2024-05-27 19:22] VITALS: O2SAT 100
[2024-05-27 19:44] VITALS: BMI 32.6
[2024-05-27] MEDS: HYDROMORPHONE HCL 1 MG/ML INJ IV PRN (20:03)
[2024-05-27] MEDS: PROMETHAZINE INJ 25 MG/ML AMP IV PRN (20:03)
[2024-05-27] MEDS: PANTOPRAZOLE 40 MG INJ IVP SCH (20:04)
[2024-05-27] MEDS: D5.45NS W/KCL 20MEQ 1,000 ML IV SCH (20:04)
[2024-05-27] MEDS: ONDANSETRON 4 MG/2 ML VIAL IV PRN (21:57)
[2024-05-28 07:52] LABS: Absolute Basophils 0.1 K/uL (0-0.5); Absolute Lymphocytes (CBC) 3.8 K/uL (0.7-4.9); Absolute Monocytes 0.9 K/uL (0.1-1.3); Absolute Neutrophil 7.1 K/uL (1.8-8.0); Basophils % 0.7 % (0-1.3); Eosinophils % 0.2 % (0-4.4); Hematocrit 42.7 % (36.0-45.0); Hemoglobin 13.7 g/dL (12.0-15.0); MCH 28.4 pg (27.0-35.0); MCV 88.7 fL (80-100); MPV 8.9 fL (7.6-11.3); Monocytes % 7.7 % (3.3-12.3); Neutrophils % 59.4 % (41.7-73.7); Platelets 237 thou/uL (152-406); RBC Red Blood Cell Count 4.82 M/uL (3.86-4.86); Red Cell Distribution Width 17.1 % (12.1-15.2)
[2024-05-28 08:22] LABS: Albumin 2.7 g/dL (3.4-5.0); Albumin/Globulin Ratio 0.7 (1.1-1.8); Anion Gap 9.9 mEq/L (5.0-15.0); Bilirubin Total 0.4 mg/dL (0.2-1.0); Magnesium 1.7 mg/dL (1.6-2.4); Phosphorus 3.2 mg/dL (2.5-4.9); Potassium 2.9 mEq/L (3.5-5.1); Protein, Total 6.7 g/dL (6.4-8.2)
[2024-05-28] MEDS: ENOXAPARIN 40 MG/0.4 ML SQ SCH (09:23)
[2024-05-28] MEDS: Mupirocin NASAL 2 APPL/1 GM TUBE NAS SCH (09:23)
[2024-05-28] MEDS: KCL 20 MEQ/100 mL IVPB 100 ML IV SCH (09:24)
[2024-05-28] MEDS: MAGNESIUM SULFATE 1 gm IVPB 1 GM/100 ML BAG IV ONE (09:24)
[2024-05-28] MEDS: NA CHLORIDE 0.9% 250 ML IV ONE ×2 (11:29→13:49)
--- NOTE | 2024-05-28 14:32 | P.PN ---
Date of Service: 05/28/24 Subjective Awake, vomiting while trying to communicate Reports seeing Dr. Pagan and Dr. Cerna outpatient Will attempt HIDA scan in the AM ROS 10 point ROS as noted above, otherwise negative Physical Exam General: Alert and Oriented x3, NAD HEENT: Atraumatic, PERRLA, Mucous membr. moist/pink Neck: Supple, 2+ carotid pulse no bruit, No LAD Respiratory: Clear to auscultation bilaterally, Normal air movement Cardiovascular: RRR, Normal S1 S2, Gastrointestinal: Other (Actively vomiting), Tenderness (Mild abdominal tendernessgeneralized) Musculoskeletal: No tenderness Integumentary: No rashes Neurological: Normal speech, Normal strength at 5/5 x4 extr, Normal tone, Normal affect Vitals Reviewed Assessment: Intractable nausea/vomiting Reported history of gastroparesis History of IBS-C Hypokalemia Diabetes mellitus type [id number]-pnwabnoch Hypertension GERD COPD Multiple sclerosis Plan: Intractable nausea/vomiting Reported history of gastroparesis History of IBS-C Hypokalemia -N.p.o., advance as tolerated -Twice daily PPI -Allergic to Reglan-reports she may have had a gastric emptying study in the year [address] Shen -Considered gastric emptying study when patient is tolerating p.o. -HIDA scan in the AM -Phenergan as needed, QT/QTc 394/462 -Levaquin -In October patient was admitted here for similar complaint and treated with sucralfate, erythromycin prior to discharge -Electrolyte protocols in place Diabetes mellitus type [id number] -ACHS Accu-Chek, sliding scale insulin Hypokalemia -K 2.9 -Monitor and replace PRN Hypertension GERD COPD Multiple sclerosis -Continue home medications when verified DVT PPX: Lovenox Code status: Full Discharge Plan: Home Plan to discharge in: Greater than 2 days
--- NOTE | 2024-05-28 14:45 | EKG ---
Test Date: 2024-05-28 Test Time: 09:15:58 [employer]oth Colors Examiner: JOHNSON MEASUREMENT RESULTS: Intervals: Rate: 83 WY: 140 QRSD: 82 QT: 394 QTc: 462 [employer]: P: 16 WY: 140 QRS: 50 T: 78 INTERPRETIVE STATEMENTS: Normal sinus rhythm Nonspecific ST and T wave abnormality Prolonged QT Abnormal ECG Compared to ECG 08/20/2023 05:44:08 ST (T wave) deviation now present Prolonged QT interval now present T-wave abnormality no longer present Electronically Signed On 05-28-24 14:45:12 CDT by Beau Graf
[2024-05-28] MEDS: QUETIAPINE 25 MG TAB PO SCH (21:31)
[2024-05-28] MEDS: GABAPENTIN 300 MG CAP PO SCH (21:32)
[2024-05-28] MEDS: ERYTHROMYCIN BASE 250 MG TAB PO SCH (21:33)
[2024-05-29] MEDS: KCL 20 MEQ/100 mL IVPB 20 MEQ/100 ML BAG IV SCH (00:02)
[2024-05-29 07:38] LABS: Absolute Basophils 0.1 K/uL (0-0.5); Absolute Eosinophils 0.1 K/uL (0-0.5); Absolute Lymphocytes (CBC) 3.3 K/uL (0.7-4.9); Absolute Monocytes 0.6 K/uL (0.1-1.3); Absolute Neutrophil 3.8 K/uL (1.8-8.0); Basophils % 0.8 % (0-1.3); Eosinophils % 0.7 % (0-4.4); Hematocrit 33.4 % (36.0-45.0); Hemoglobin 10.9 g/dL (12.0-15.0); Lymphocytes % 42.2 % (15.3-44.8); MCH 29.1 pg (27.0-35.0); MCHC 32.6 g/dL (32.0-36.0); MCV 89.2 fL (80-100); MPV 8.7 fL (7.6-11.3); Monocytes % 7.3 % (3.3-12.3); Nucleated Red Blood Cells % 0.1 % (0-0); Platelets 167 thou/uL (152-406); RBC Red Blood Cell Count 3.75 M/uL (3.86-4.86)
[2024-05-29 07:58] LABS: Albumin 2.1 g/dL (3.4-5.0); Albumin/Globulin Ratio 0.7 (1.1-1.8); Anion Gap 7.5 mEq/L (5.0-15.0); Bilirubin Total 0.4 mg/dL (0.2-1.0); Globulin 3.1 g/dL (2.3-3.5); Magnesium 1.8 mg/dL (1.6-2.4); Phosphorus 1.9 mg/dL (2.5-4.9); Potassium 3.5 mEq/L (3.5-5.1); Protein, Total 5.2 g/dL (6.4-8.2)
[2024-05-29] MEDS: POTASSIUM CL SA 10 MEQ TAB PO ONE (09:00)
[2024-05-29] MEDS: POTASS/SODIUM PHOSPHATE 1 PKT POWD.PACK PO SCH (09:00)
[2024-05-29] MEDS: MAGNESIUM SULFATE 1 gm IVPB 1 GM/100 ML BAG IV SCH (09:42)
[2024-05-29] MEDS: POTASSIUM PHOS IN 0.9 % NACL 15 MMOL/250 ML BAG IV SCH (10:55)
--- NOTE | 2024-05-29 15:29 | P.PN ---
Date of Service: 05/29/24 Subjective Sleeping, returned when she was awake Able to converse without active vomiting Advancing to CLD, tolerating small sips of water Unable to lay flat for 2 hours to accomplish the HIDA scan ROS 10 point ROS as noted above, otherwise negative Physical Exam General: Alert and Oriented x3, NAD HEENT: Atraumatic, PERRLA, Mucous membr. moist/pink Neck: Supple, 2+ carotid pulse no bruit, No LAD Respiratory: Clear to auscultation bilaterally, Normal air movement Cardiovascular: Regular rate and rhythm, normal S1 S2, no murmur noted Gastrointestinal: soft on palpation, Tenderness (Mild abdominal tendernessgeneralized) Musculoskeletal: No tenderness Integumentary: No rashes Neurological: Normal speech, Normal strength at 5/5 x4 extr, Normal tone, Normal affect Vitals Reviewed Assessment: Intractable nausea/vomiting Reported history of gastroparesis History of IBS-C Leukocytosis Hypokalemia Diabetes mellitus type 1hwf-akjyqmh-eumlyejzo Hypertension GERD COPD Multiple sclerosis Plan: Intractable nausea/vomiting Reported history of gastroparesis History of IBS-C Leukocytosis-resolved -WBC 17.2/12/7.8 -CLD -Twice daily PPI -Allergic to Reglan-reports she may have had a gastric emptying study in the year [address] Shen -Considered gastric emptying study when patient is tolerating p.o. -HIDA scan -unable to lay flat for 2 hours, HIDA scan canceled -Phenergan as needed, QT/QTc 394/462 -Continue Levaquin -In October patient was admitted here for similar complaint and treated with sucralfate, erythromycin prior to discharge -Electrolyte protocols in place Anemia - H/H 10.9/33.4 -Continue to monitor -Iron studies in the AM Diabetes mellitus type [id number] -ACHS Accu-Chek, sliding scale insulin Hypokalemia -K 3.5 -Monitor and replace PRN Hypertension GERD COPD Multiple sclerosis -Continue home medications when verified DVT PPX: Lovenox Code status: Full Discharge Plan: Home Plan to discharge in: Greater than 2 days
[2024-05-29] MEDS ORDERED: LINACLOTIDE 72 MCG PO PRN (17:24)
[2024-05-29] MEDS ORDERED: HOME MED 1 EA UNK (Tizanidine Hcl [Tizanidine Hcl] 2 MG Tablet) PO SCH (17:30)
[2024-05-29] MEDS: TIZANIDINE 4 MG TABLET PO SCH (18:43)
[2024-05-29] MEDS: LIDOCAINE 4% PATCH TD SCH (18:44)
[2024-05-29] MEDS ORDERED: HOME MED 1 EA UNK (Quetiapine Fumarate [Seroquel] 50 MG Tablet) PO SCH (21:00)
[2024-05-29] MEDS: Budesonide/Glycopyr/Formoterol [Breztri Aerosphere Inhaler] 10.7 GM Hfa *PT OWN MED IH SCH (21:00)
[2024-05-29] MEDS: NYSTATIN PWDR 100000 UNIT/GM TOP SCH (21:00)
[2024-05-29] MEDS ORDERED: HOME MED 1 EA UNK (Nortriptyline Hcl [Pamelor] 50 MG Capsule) PO SCH (21:00)
[2024-05-29] MEDS: SPIRONOLACTONE 25 MG TABLET PO SCH (21:01)
[2024-05-29] MEDS: GABAPENTIN 300 MG CAP PO SCH (21:01)
[2024-05-29] MEDS: NORTRIPTYLINE HCL 25 MG CAP PO SCH (21:02)
[2024-05-30 07:37] LABS: Absolute Eosinophils 0.1 K/uL (0-0.5); Absolute Lymphocytes (CBC) 2.5 K/uL (0.7-4.9); Absolute Monocytes 0.5 K/uL (0.1-1.3); Absolute Neutrophil 3.1 K/uL (1.8-8.0); Basophils % 0.7 % (0-1.3); Eosinophils % 1.3 % (0-4.4); Hematocrit 33.3 % (36.0-45.0); Hemoglobin 10.9 g/dL (12.0-15.0); Lymphocytes % 40.4 % (15.3-44.8); MCH 29.5 pg (27.0-35.0); MCHC 32.8 g/dL (32.0-36.0); MCV 90.1 fL (80-100); MPV 8.7 fL (7.6-11.3); Monocytes % 7.6 % (3.3-12.3); Platelets 149 thou/uL (152-406); Red Cell Distribution Width 16.8 % (12.1-15.2)
[2024-05-30 08:43] LABS: ALT/SGPT 29 U/L (13-56); AST/SGOT 26 U/L (15-37); Albumin 2.1 g/dL (3.4-5.0); Albumin/Globulin Ratio 0.7 (1.1-1.8); Alkaline Phosphatase 63 U/L (45-117); Anion Gap 10.8 mEq/L (5.0-15.0); Bicarbonate 21 mEq/L (21-32); Bilirubin Total 0.4 mg/dL (0.2-1.0); Globulin 3.1 g/dL (2.3-3.5); Glomerular Filtration Rate 112 ml/min (=/>90); Glucose Level 98 mg/dL (74-106); Phosphorus 2.6 mg/dL (2.5-4.9); Potassium 3.8 mEq/L (3.5-5.1); Protein, Total 5.2 g/dL (6.4-8.2); Sodium Level 135 mEq/L (136-145); Transferrin 165 mg/dL (200-360)
[2024-05-30 08:45] LABS: BUN Blood Urea Nitrogen < 3 mg/dL (7-18)
[2024-05-30] MEDS: ATORVASTATIN 10 MG TAB PO SCH (09:22)
[2024-05-30] MEDS: POTASSIUM CL SA 10 MEQ TAB PO ONE ×3 (14:35→14:51)
[2024-05-31 06:10] LABS: Absolute Basophils 0.1 K/uL (0-0.5); Absolute Eosinophils 0.1 K/uL (0-0.5); Absolute Monocytes 0.5 K/uL (0.1-1.3); Absolute Neutrophil 3.2 K/uL (1.8-8.0); Basophils % 0.8 % (0-1.3); Eosinophils % 1.4 % (0-4.4); Hematocrit 35.9 % (36.0-45.0); Hemoglobin 11.6 g/dL (12.0-15.0); Lymphocytes % 43.6 % (15.3-44.8); MCH 28.9 pg (27.0-35.0); MCHC 32.3 g/dL (32.0-36.0); MCV 89.6 fL (80-100); Monocytes % 7.6 % (3.3-12.3); Neutrophils % 46.6 % (41.7-73.7); Platelets 150 thou/uL (152-406); RBC Red Blood Cell Count 4.01 M/uL (3.86-4.86); Red Cell Distribution Width 16.4 % (12.1-15.2)
--- NOTE | 2024-05-31 06:13 | P.DS ---
Admission Date: 05/27/24 Discharge Date: 05/31/24 Disposition: ROUTINE DISCHARGE Discharge Condition: GOOD Reason for Admission: Intractable nausea and vomiting Brief History of Present Illness: Diagnosis Intractable nausea/vomiting Reported history of gastroparesis History of IBS-C Leukocytosis Hypokalemia Diabetes mellitus type [id number]-plixlrgfi Hypertension GERD COPD Multiple sclerosis HPI 05/27/24 Lianne Medina is a 53-year-old female with history of hypertension, MS, GERD, COPD, IBS-C, questionable history of gastroparesis presents to the emergency department for chief complaint of nausea/vomiting and abdominal pain. She has had multiple similar admissions in the past and is thought to suffer with gastroenteritis. She had an ileus recently earlier this month. She was evaluated in the emergency department her labs are significant for a white blood cell count of 17.2 hemoglobin 15.9 hematocrit 49 potassium 2.9 lactic acid 2.[address] abdomen pelvis was performed and negative for acute findings. Patient still with significant abdominal pain, persistent nausea vomiting. Will need to be admitted for further evaluation and management of intractable nausea vomiting and suspected gastroparesis flare. Hospital Course: [text] is a pleasant [text] with a past medical history significant for [text] who was admitted to the [facility] on [text] for [text]. [text] On [date], [text] was seen on morning rounds and deemed medically stable for discharge. [text] was discharged with instructions to schedule follow-up appo intments with [text]. [text] was provided prescriptions for [text]. Physical Exam General: AAO x3, NAD, comfortable HEENT: Atraumatic, PERRLA, Mucous membr. moist/pink Neck: Supple, 2+ carotid pulse no bruit, No LAD Respiratory: Clear to auscultation bilaterally, Normal air movement Cardiovascular: NSR, normal S1 S2, no murmur noted Gastrointestinal: soft on palpation, Tenderness (Mild abdominal tendernessgeneralized), Normal Bowel sounds Musculoskeletal: No tenderness Integumentary: No rashes Neurological: Normal speech, Normal strength at 5/5 x4 extr, Normal tone, Normal affect Vital Signs/Physical Exam: Temp Pulse Resp BP Pulse Ox 96.9 F 88 18 160/96 H 95 05/30/24 23:34 05/30/24 23:34 05/30/24 23:48 05/30/24 23:34 05/30/24 23:48 Laboratory Data at Discharge: WBC 6.20 thou/uL (4.3-10.9) 05/30/24 07:15 Hgb 10.9 g/dL (12.0-15.0) L 05/30/24 07:15 Hct 33.3 % (36.0-45.0) L 05/30/24 07:15 Plt Count 149 thou/uL (152-406) L 05/30/24 07:15 Sodium 135 mEq/L (136-145) L 05/30/24 06:00 Potassium 3.8 mEq/L (3.5-5.1) 05/30/24 06:00 BUN < 3 mg/dL (7-18) L 05/30/24 06:00 Creatinine 0.47 mg/dL (0.55-1.02) L 05/30/24 06:00 Glucose 98 mg/dL (74-106) 05/30/24 06:00 Phosphorus 2.6 mg/dL (2.5-4.9) 05/30/24 06:00 Magnesium 2.0 mg/dL (1.6-2.4) 05/30/24 06:00 Total Bilirubin 0.4 mg/dL (0.2-1.0) 05/30/24 06:00 AST 26 U/L (15-37) 05/30/24 06:00 ALT 29 U/L (13-56) 05/30/24 06:00 Alkaline Phosphatase 63 U/L (45-117) 05/30/24 06:00 Lipase 15 U/L (13-75) 05/27/24 16:10 Home Medications: Atorvastatin Calcium 10 mg PO DAILY 08/04/22 Gabapentin 900 mg PO TID 08/04/22 Ondansetron [Zofran (Odt)*] 4 mg PO Q8H PRN 08/04/22 Budesonide/Glycopyr/Formoterol [Breztri Aerosphere Inhaler] 2 puff IH BID 08/21/23 Spironolactone [Aldactone*] 25 mg PO BID #60 tab 08/21/23 Tizanidine HCl 2 mg PO Q8H 08/21/23 Esomeprazole Magnesium [Nexium 24Hr] 20 mg PO BREAKFAST 04/27/24 Hydrocodone/Acetaminophen [Hydrocodone-Acetamin 7.5-325] 1 tab PO Q8HR 11/24/23 Lidocaine 4% Patch [Lidoderm 5% Patch*] 1 patch TD DAILY 11/24/23 Linaclotide [Linzess] 1 cap PO DAILY PRN 11/24/23 Nortriptyline HCl [Pamelor] 50 mg PO BEDTIME 11/24/23 Quetiapine Fumarate [Seroquel] 50 mg PO BEDTIME 11/24/23 Nystatin Powder [Mycostatin (Powder)*] 15 appl TOP BID 7 Days #1 btl 11/28/23 Albuterol Sulfate [Ventolin Hfa] 2 puff IH Q6HP PRN 02/12/24 Ibuprofen 400 mg PO Q4HP PRN 02/12/24 carvediloL [Coreg] 25 mg PO BID 02/12/24 Sucralfate [Carafate*] 10 ml PO QID 10 Days #1 bottle 04/17/24 Gabapentin 300 mg PO TID 05/29/24 Erythromycin Base [Erythromycin] 250 mg PO TID 14 Days #42 tab 05/31/24 Promethazine HCl 1 tab PO Q12HR PRN 14 Days #28 tab 05/31/24 Quetiapine [Seroquel*] 50 mg PO BEDTIME 30 Days #0 tab 05/31/24 New Medications: Promethazine HCl 1 tab PO Q12HR PRN 14 Days #28 tab PRN Reason: Nausea / Vomiting Erythromycin Base [Erythromycin] 250 mg PO TID 14 Days #42 tab Physician Discharge Instructions: 1. Please call and schedule a follow-up appointment with your PCP in 3-5 days - Please follow-up with your PCP for medication refills/adjustments 2. Please call and schedule a follow-up appointment with Gerontologist in the [place] area in one week 3. Continue full liquid or soft GI diet, as tolerated 4. activity restrictions, fall precautions 5. Return to the ED if symptoms worsen New medications Phenergan p.o. Followup: Wilbur Oliveira DO [Primary Care Provider] -
--- NOTE | 2024-05-31 06:13 | P.PN ---
Date of Service: 05/30/24 Subjective Awake and tolerating CLD reports pudding is too sweat with FLD Will monitor today and Likely discharge in the AM ROS 10 point ROS as noted above, otherwise negative Physical Exam General: AAO x3, NAD, comfortable HEENT: Atraumatic, PERRLA, Mucous membr. moist/pink Neck: Supple, 2+ carotid pulse no bruit, No LAD Respiratory: Clear to auscultation bilaterally, Normal air movement Cardiovascular: NSR, normal S1 S2, no murmur noted Gastrointestinal: soft on palpation, Tenderness (Mild abdominal tendernessgeneralized), Normal Bowel sounds Musculoskeletal: No tenderness Integumentary: No rashes Neurological: Normal speech, Normal strength at 5/5 x4 extr, Normal tone, Normal affect Vitals Reviewed Assessment: Intractable nausea/vomiting Reported history of gastroparesis History of IBS-C Leukocytosis Hypokalemia Diabetes mellitus type 3jgl-ebprbkr-eidtbbymd Hypertension GERD COPD Multiple sclerosis Plan: Intractable nausea/vomiting Reported history of gastroparesis History of IBS-C Leukocytosis-resolved -WBC 17.2/12/7.8/6.2 -FLD -Twice daily PPI -Allergic to Reglan-reports she may have had a gastric emptying study in the year [address] Shen -Considered gastric emptying study when patient is tolerating p.o. -HIDA scan -unable to lay flat for 2 hours, HIDA scan canceled -Phenergan as needed, QT/QTc 394/462 -Continue Levaquin and erythromycin -In October patient was admitted here for similar complaint and treated with sucralfate, erythromycin prior to discharge -Electrolyte protocols in place Anemia - H/H 10.9/33.3 -Continue to monitor -Iron studies in the AM Diabetes mellitus type 4hkr-lnparub-ovgbcmgjz -ACHS Accu-Chek, sliding scale insulin Hypokalemia -K 3.8 -Monitor and replace PRN Hypertension GERD COPD Multiple sclerosis -Continue home medications when verified DVT PPX: Lovenox Code status: Full Discharge Plan: Home Plan to discharge in: Greater than 2 days
[2024-05-31 06:22] LABS: ALT/SGPT 37 U/L (13-56); AST/SGOT 27 U/L (15-37); Albumin 2.2 g/dL (3.4-5.0); Albumin/Globulin Ratio 0.7 (1.1-1.8); Alkaline Phosphatase 71 U/L (45-117); Anion Gap 8.3 mEq/L (5.0-15.0); BUN Blood Urea Nitrogen < 3 mg/dL (7-18); Bicarbonate 24 mEq/L (21-32); Bilirubin Total 0.4 mg/dL (0.2-1.0); Globulin 3.3 g/dL (2.3-3.5); Glomerular Filtration Rate 109 ml/min (=/>90); Glucose Level 106 mg/dL (74-106); Magnesium 1.9 mg/dL (1.6-2.4); Phosphorus 2.6 mg/dL (2.5-4.9); Potassium 4.3 mEq/L (3.5-5.1); Protein, Total 5.5 g/dL (6.4-8.2); Sodium Level 135 mEq/L (136-145)
--- NOTE | 2024-05-31 16:06 | P.PN ---
Date of Service: 05/31/24 Subjective Awake, tolerating CLD but FLD causing nausea Nausea increased with soft GI diet, belching while talking Will continue to trial food tonight and gauge toleration Reports flatulance and small BM ROS 10 point ROS as noted above, otherwise negative Physical Exam General: AAO x3, NAD, comfortable HEENT: Atraumatic, PERRLA, Mucous membr. moist/pink Neck: Supple, 2+ carotid pulse no bruit, No LAD Respiratory: Clear to auscultation bilaterally, Normal air movement Cardiovascular: NSR, normal S1 S2, no murmur noted Gastrointestinal: soft on palpation, Tenderness (Mild abdominal tendernessgeneralized), Normal Bowel sounds Musculoskeletal: No tenderness Integumentary: No rashes Neurological: Normal speech, Normal strength at 5/5 x4 extr, Normal tone, Normal affect Vitals Reviewed Assessment: Intractable nausea/vomiting Reported history of gastroparesis hypoalbuminemia 2/2 decreased PO intake Suspect Starvation History of IBS-C Leukocytosis Hypokalemia Diabetes mellitus type 7vzu-lwptesi-wfqkvncew Hypertension GERD COPD Multiple sclerosis Plan: Intractable nausea/vomiting Reported history of gastroparesis hypoalbuminemia 2/2 decreased PO intake Suspect Starvation History of IBS-C Leukocytosis-resolved -WBC 17.2/12/7.8/6.2/6.9 -BUN <3, albumin 2.2, decreased PO intake, decreased energy -Soft GI, trying mashed potatoes and soft peas tonight -Twice daily PPI -Allergic to Reglan-reports she may have had a gastric emptying study in the year [address] Shen -Considered gastric emptying study when patient is tolerating p.o. -HIDA scan -unable to lay flat for 2 hours, HIDA scan canceled -Phenergan as needed, QT/QTc 394/462 -Continue Levaquin and erythromycin -In October patient was admitted here for similar complaint and treated with sucralfate, erythromycin prior to discharge -Electrolyte protocols in place Anemia - H/H 11.6/35.9 -Continue to monitor -Iron studies in the AM Diabetes mellitus type 5oah-lfsephn-gkiixlblc -ACHS Accu-Chek, sliding scale insulin Hypokalemia- resolved -K 4.3 -IVF with potassium -Monitor and replace PRN Hypertension GERD COPD Multiple sclerosis -Continue home medications when verified DVT PPX: Lovenox Code status: Full Discharge Plan: Home Plan to discharge in: Greater than 2 days <Haley Novoa - Last Filed: 06/01/24 06:31> Patient seen and examined. Patient states she is doing better. She has been able to tolerate full liquid diet. She denies any abdominal pain. Continue erythromycin, antiemetics as needed. Advance to soft diet. Planning to discharge once patient tolerates diet advancement. <abraham mckeon - Last Filed: 06/01/24 15:09>
[2024-06-01] MEDS: INSULIN REGULAR (HUMAN) 100 UNIT/ML SQ SCH (07:30)
[2024-06-01 08:55] LABS: Absolute Basophils 0.1 K/uL (0-0.5); Absolute Eosinophils 0.1 K/uL (0-0.5); Absolute Lymphocytes (CBC) 2.9 K/uL (0.7-4.9); Absolute Monocytes 0.7 K/uL (0.1-1.3); Absolute Neutrophil 6.4 K/uL (1.8-8.0); Basophils % 1.2 % (0-1.3); Hematocrit 38.8 % (36.0-45.0); Hemoglobin 12.7 g/dL (12.0-15.0); Lymphocytes % 28.4 % (15.3-44.8); MCH 29.1 pg (27.0-35.0); MCHC 32.8 g/dL (32.0-36.0); MCV 88.6 fL (80-100); Neutrophils % 62.4 % (41.7-73.7); Nucleated Red Blood Cells % 0.3 % (0-0); Platelets 174 thou/uL (152-406); RBC Red Blood Cell Count 4.38 M/uL (3.86-4.86); Red Cell Distribution Width 16.5 % (12.1-15.2)
[2024-06-01 09:49] LABS: ALT/SGPT 55 U/L (13-56); AST/SGOT 40 U/L (15-37); Albumin 2.5 g/dL (3.4-5.0); Albumin/Globulin Ratio 0.7 (1.1-1.8); Alkaline Phosphatase 84 U/L (45-117); Anion Gap 9.6 mEq/L (5.0-15.0); BUN Blood Urea Nitrogen < 3 mg/dL (7-18); Bicarbonate 26 mEq/L (21-32); Bilirubin Total 0.6 mg/dL (0.2-1.0); Globulin 3.7 g/dL (2.3-3.5); Glomerular Filtration Rate 106 ml/min (=/>90); Glucose Level 95 mg/dL (74-106); Magnesium 1.7 mg/dL (1.6-2.4); Phosphorus 2.7 mg/dL (2.5-4.9); Potassium 4.6 mEq/L (3.5-5.1); Protein, Total 6.2 g/dL (6.4-8.2); Sodium Level 133 mEq/L (136-145)
[2024-06-01] MEDS: CIPROFLOXACIN 400mg IV 400 MG/200 ML BAG IV SCH (13:23)
--- NOTE | 2024-06-01 13:50 | RAD REPORT ---
EXAM: AP view(s) of the abdomen Abdomen 1 View (KUB) HISTORY: Constipation COMPARISON: None FINDINGS: Nonobstructive bowel gas pattern.. No suspicious calcifications are seen. No acute osseous abnormality. Other: n/a IMPRESSION: Nonobstructive bowel gas pattern. Low formed stool burden.
--- NOTE | 2024-06-01 15:02 | P.PN ---
Date of Service: 06/01/24 Subjective Awake ordering mashed potatoes with gravy for lunch conversing well, now c/o right sided flank pain and dysuria Her pcp clinic called with a UA culture resulted with Ecoli, our UA resulted clean ROS 10 point ROS as noted above, otherwise negative Physical Exam General: Alert and oriented x3, NAD, conversing HEENT: Atraumatic, PERRLA, MMM Neck: Supple, 2+ carotid pulse no bruit, No LAD Respiratory: Clear to auscultation bilaterally, metrical chest wall movement, on room air Cardiovascular: RRR, normal S1 S2 present, no murmur noted Gastrointestinal: soft on palpation, Tenderness (Mild abdominal tendernessgeneralized), Normal Bowel sounds Musculoskeletal: No tenderness Integumentary: No rashes Neurological: Normal speech, Normal strength at 5/5 x4 extr, Normal tone, Normal affect Vitals Reviewed Assessment: Intractable nausea/vomiting Reported history of gastroparesis hypoalbuminemia 2/2 decreased PO intake Suspect Starvation History of IBS-C Leukocytosis Hypokalemia Diabetes mellitus type 4mce-vqdhzfc-rombngyov Hypertension GERD COPD Multiple sclerosis Plan: Intractable nausea/vomiting Reported history of gastroparesis hypoalbuminemia 2/2 decreased PO intake Suspect Starvation History of IBS-C Leukocytosis-resolved -WBC 17.2/12/7.8/6.2/6.9-resolved -BUN <3, albumin 2.2, decreased PO intake, decreased energy -Soft GI, trying mashed potatoes and soft peas tonight -Twice daily PPI -Allergic to Reglan-reports she may have had a gastric emptying study in the year [address] Shen -Considered gastric emptying study when patient is tolerating p.o. -HIDA scan -unable to lay flat for 2 hours, HIDA scan canceled -Phenergan as needed, QT/QTc 394/462 -Repeat EKG for updated QT/QTc level -Continue Levaquin and erythromycin -In October patient was admitted here for similar complaint and treated with sucralfate, erythromycin prior to discharge -Electrolyte protocols in place -KUB showing small stool burden -Encouraged Ensure Enlive and Ensure soy cunningham Anemia - H/H 12.7/28.8 -Continue to monitor -Iron studies (Iron 83, TIBC 231, Transferrin 165, Saturatino 35.9, Ferritin 51) Diabetes mellitus type 8ahu-gvhmsuu-qhteucdzp -ACHS Accu-Chek, sliding scale insulin Hypokalemia- resolved -K 4.6 -IVF with potassium -Monitor and replace PRN Hypertension GERD COPD Multiple sclerosis -Continue home medications when verified DVT PPX: Lovenox Code status: Full Discharge Plan: Home Plan to discharge in: Greater than 2 days <Haley Novoa - Last Filed: 06/01/24 14:52> Patient seen and examined, plan of care discussed with Ms. Novoa. Patient reports episodes of nausea last night. She ate a little bit of her breakfast this morning. Patient reports no bowel movement for at least 1 week. Obtain KUB to assess for fecal retention. Continue current medications. <abraham mckeon - Last Filed: 06/01/24 15:23>
[2024-06-02 07:49] LABS: ALT/SGPT 41 U/L (13-56); AST/SGOT 23 U/L (15-37); Albumin 2.1 g/dL (3.4-5.0); Albumin/Globulin Ratio 0.6 (1.1-1.8); Alkaline Phosphatase 70 U/L (45-117); Anion Gap 6.3 mEq/L (5.0-15.0); Bicarbonate 30 mEq/L (21-32); Bilirubin Total 0.3 mg/dL (0.2-1.0); Globulin 3.3 g/dL (2.3-3.5); Glomerular Filtration Rate 102 ml/min (=/>90); Glucose Level 119 mg/dL (74-106); Magnesium 1.7 mg/dL (1.6-2.4); Phosphorus 3.5 mg/dL (2.5-4.9); Potassium 4.3 mEq/L (3.5-5.1); Protein, Total 5.4 g/dL (6.4-8.2); Sodium Level 135 mEq/L (136-145)
[2024-06-02 07:50] LABS: BUN Blood Urea Nitrogen < 3 mg/dL (7-18)
[2024-06-02 12:47] VITALS: BP 119/65; TEMP 98.3
--- NOTE | 2024-06-02 16:34 | P.DS ---
Admission Date: 05/27/24 Discharge Date: 06/02/24 Disposition: ROUTINE DISCHARGE Discharge Condition: GOOD Reason for Admission: Intractable nausea and vomiting Brief History of Present Illness: 53-year-old female with history of hypertension, MS, GERD, COPD, IBS-C, questionable history of gastroparesis presents to the emergency department for chief complaint of nausea/vomiting and abdominal pain. She has had multiple similar admissions in the past and is thought to suffer with gastroenteritis. She had an ileus recently earlier this month. She was evaluated in the emergency department her labs are significant for a white blood cell count of 17.2 hemoglobin 15.9 hematocrit 49 potassium 2.9 lactic acid 2.[address] abdomen pelvis was performed and negative for acute findings. Patient still with significant abdominal pain, persistent nausea vomiting. Will need to be admitted for further evaluation and management of intractable nausea vomiting and suspected gastroparesis flare. Hospital Course: Assessment: Intractable nausea/vomiting Reported history of gastroparesis hypoalbuminemia 2/2 decreased PO intake Suspect Starvation History of IBS-C Leukocytosis Hypokalemia Diabetes mellitus type 7qkp-lgzuowp-vsnvqgpzw Hypertension GERD COPD Multiple sclerosis 1. Please call and schedule a follow-up appointment with your PCP in 3-5 days - Please follow-up with your PCP for medication refills/adjustments 2. Please call and schedule a follow-up appointment with neuro- leveler in the [place] area in one week 3. Continue full liquid or soft GI diet, as tolerated 4. activity restrictions, fall precautions 5. Return to the ED if symptoms worsen New medications Promethazine 25 mg every 12 daily x 14days Erythromycin 250 mg three times daily x 14 days Seroquel 25 mg at bedtime x 10 days Vital Signs/Physical Exam: Temp Pulse Resp BP Pulse Ox 98.3 F 80 16 119/65 93 06/02/24 12:00 06/02/24 12:00 06/02/24 12:24 06/02/24 12:00 06/02/24 12:00 General: Alert, In no apparent distress, Oriented x3 HEENT: Atraumatic, PERRLA, EOMI Neck: Supple, JVD not distended Respiratory: Clear to auscultation bilaterally, Normal air movement Cardiovascular: Regular rate/rhythm, Normal S1 S2 Gastrointestinal: Normal bowel sounds, No tenderness Musculoskeletal: No tenderness Integumentary: No rashes Neurological: Normal speech, Normal affect Laboratory Data at Discharge: WBC 10.20 thou/uL (4.3-10.9) 06/01/24 08:44 Hgb 12.7 g/dL (12.0-15.0) D 06/01/24 08:44 Hct 38.8 % (36.0-45.0) 06/01/24 08:44 Plt Count 174 thou/uL (152-406) 06/01/24 08:44 Sodium 135 mEq/L (136-145) L 06/02/24 07:20 Potassium 4.3 mEq/L (3.5-5.1) 06/02/24 07:20 BUN < 3 mg/dL (7-18) L 06/02/24 07:20 Creatinine 0.69 mg/dL (0.55-1.02) 06/02/24 07:20 Glucose 119 mg/dL (74-106) H 06/02/24 07:20 Phosphorus 3.5 mg/dL (2.5-4.9) 06/02/24 07:20 Magnesium 1.7 mg/dL (1.6-2.4) 06/02/24 07:20 Total Bilirubin 0.3 mg/dL (0.2-1.0) 06/02/24 07:20 AST 23 U/L (15-37) 06/02/24 07:20 ALT 41 U/L (13-56) 06/02/24 07:20 Alkaline Phosphatase 70 U/L (45-117) 06/02/24 07:20 Lipase 15 U/L (13-75) 05/27/24 16:10 Home Medications: Atorvastatin Calcium 10 mg PO DAILY 08/04/22 Gabapentin 900 mg PO TID 08/04/22 Ondansetron [Zofran (Odt)*] 4 mg PO Q8H PRN 08/04/22 Budesonide/Glycopyr/Formoterol [Breztri Aerosphere Inhaler] 2 puff IH BID 08/21/23 Spironolactone [Aldactone*] 25 mg PO BID #60 tab 08/21/23 Tizanidine HCl 2 mg PO Q8H 08/21/23 Esomeprazole Magnesium [Nexium 24Hr] 20 mg PO BREAKFAST 11/24/23 Hydrocodone/Acetaminophen [Hydrocodone-Acetamin 7.5-325] 1 tab PO Q8HR 11/24/23 Lidocaine 4% Patch [Lidoderm 5% Patch*] 1 patch TD DAILY 11/24/23 Linaclotide [Linzess] 1 cap PO DAILY PRN 11/24/23 Nortriptyline HCl [Pamelor] 50 mg PO BEDTIME 11/24/23 Quetiapine Fumarate [Seroquel] 50 mg PO BEDTIME 11/24/23 Nystatin Powder [Mycostatin (Powder)*] 15 appl TOP BID 7 Days #1 btl 11/28/23 Albuterol Sulfate [Ventolin Hfa] 2 puff IH Q6HP PRN 02/12/24 carvediloL [Coreg] 25 mg PO BID 02/12/24 Gabapentin 300 mg PO TID 05/29/24 Erythromycin Base [Erythromycin] 250 mg PO TID 14 Days #42 tab 05/31/24 Promethazine HCl 25 mg PO Q12H 14 Days #28 tab 05/31/24 Quetiapine Fumarate [Seroquel] 25 mg PO BEDTIME 10 Days #10 tab 05/31/24 Scopolamine Hydrobromide [Transderm-Scop*] 1 pat TD Q3D@0900 #10 pat 06/02/24 Sucralfate [Carafate*] 1 gm PO ACHS #120 tab 06/02/24 New Medications: Sucralfate [Carafate*] 1 gm PO ACHS #120 tab Erythromycin Base [Erythromycin] 250 mg PO TID 14 Days #42 tab Promethazine HCl 25 mg PO Q12H 14 Days #28 tab Quetiapine Fumarate [Seroquel] 25 mg PO BEDTIME 10 Days #10 tab Scopolamine Hydrobromide [Transderm-Scop*] 1 pat TD Q3D@0900 #10 pat Physician Discharge Instructions: PROBLEM: nausea and vomiting, gastro GOAL: Clear understanding of disease process INSTRUCTIONS: Diet: AHA Activity: Fall precautions 1. Please call and schedule a follow-up appointment with your PCP in 3-5 days - Please follow-up with your PCP for medication refills/adjustments 2. Please call and schedule a follow-up appointment with neuro- leveler in the [place] area in one week 3. Continue full liquid or soft GI diet, as tolerated 4. activity restrictions, fall precautions 5. Return to the ED if symptoms worsen New medications Promethazine 25 mg every 12 daily x 14days Erythromycin 250 mg three times daily x 14 days Seroquel 25 mg at bedtime x 10 days Diet: AHA (GI soft) Activity: Fall precautions Followup: Wilbur Oliveira DO [Primary Care Provider] - 1 Week Time spent managing pt's care (in minutes): 42
[2024-06-05] MEDS ORDERED: SCOPOLAMINE HYDROBROMIDE PATCH TD SCH (16:00)
== END 2024-06-02 17:00 | disposition home health service (06) | DRG 392 ==
LOC: ER 14:07 → ERHOLD 17:17 → 4TH 17:46 → 2ND 05-31 18:26
PROVIDERS: ADMIT Internal Medicine; ATTEND Internal Medicine
PROC: 02HV33Z Insertion of Infusion Device into Superior Vena Cava, Percutaneous Approach (ICD-10-PCS; principal; 2024-05-28)
DX: K52.9 Noninfective gastroenteritis and colitis, unspecified (principal); E87.20 Acidosis, unspecified; E87.6 Hypokalemia; E86.0 Dehydration; I10 Essential (primary) hypertension; G35 Multiple sclerosis; E11.9 Type 2 diabetes mellitus without complications; D64.9 Anemia, unspecified; E88.09 Other disorders of plasma-protein metabolism, not elsewhere classified; J44.9 Chronic obstructive pulmonary disease, unspecified; K21.9 Gastro-esophageal reflux disease without esophagitis; D72.829 Elevated white blood cell count, unspecified; F17.210 Nicotine dependence, cigarettes, uncomplicated; B96.20 Unspecified Escherichia coli [E. coli] as the cause of diseases classified elsewhere; Z88.5 Allergy status to narcotic agent; Z88.0 Allergy status to penicillin; Z88.2 Allergy status to sulfonamides; Z88.8 Allergy status to other drugs, medicaments and biological substances; Z79.02 Long term (current) use of antithrombotics/antiplatelets; Z79.899 Other long term (current) drug therapy; Z85.841 Personal history of malignant neoplasm of brain
CPT/HCPCS: 36415; 74018; 74177; 80053; 81001; 82607; 82728; 82947; 83540; 83605; 83615; 83690; 83735; 84100; 84132; 84466; 85025; 93005; 96361; 96374; 96375; 97161; 99284; J0744; J1171; J1650; J2405; J2470; J2550; J3475; J3480; J7030; J7050; Q9967

== ENCOUNTER 2024-06-04 14:58 | Inpatient (IN) | payer OTHER ==
--- OUTSIDE RECORDS SUMMARY | 2024-06-04 15:02 | XMS REPORT | Clinical Summary ---
Author Name Unknown Organization [facility] Address [address] [address] Care Team Providers Care Decorating Machine Tender Name Role Phone Mingo Street MD Primary Care Provider [phone] Nomi Olea MD Unavailable [phone] Pedro Comer MD Unavailable Haresh Venegas MD Unavailable [email or web address] Magnolia Holden MD Unavailable Prince Abdoul AUTOMOBILE ACCESSORIES INSTALLER Unavailable [phone] Darnell Wellington MD Unavailable Jossue Suresh Unavailable Mingo Street MD Unavailable [phone] Margarita Chaves PA Unavailable [phone] Kimber Mendoza MD Unavailable Cherrie Johnson AUTOMOBILE ACCESSORIES INSTALLER Unavailable Tigist Morgan MD Unavailable [phone] Cleopatra Al MD Unavailable [phone] Allergies Active Allergy Reactions Criticality Noted [...] High 08/20/2021 Per patient throat closes up [employer] Other (See Comments) 01/21/20 16 Penicillins [...] Take by mouth. 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 2016 Post-traumatic stress disorder 11/01/2016 Mild cognitive disorder 11/01/2016 Adjustment disorder with physical complaints 11/2016 Hyponatremia 10/31/2016 Melena 10/31/2016 Endometriosis 10/31/2016 Urinary tract infection 10/31/2016 Colitis 10/31/2016 Chronic pain syndrome 10/31/2016 Tobacco use 10/31/2016 Anemia of chronic disease 10/31/2016 Headache 10/31/2016 Abdominal pain, generalized 04/13/2016 Generalized anxiety disorder 04/13/2016 Surgical History Surgery Date Site/Laterality Comments BREAST RECONSTRUCTION LA ESOPHAGOGASTRODUODENOSCOP Y TRANSORAL DIAGNOSTIC 11/02/2016 Esophagus/N/A Procedure: DIAGNOSTIC UPPER GASTROINTESTINAL ENDOSCOPY; Surgeon: Apoorva Wen MD; Location: MAIN ENDOSCOPY; Service: GASTROENTEROLOGY LA COLONOSCOPY FLX DX W/JEANETTE J SPEC WHEN PFRMD 11/02/2016 N/A Procedure: DIAGNOSTIC FLEXIBLE COLONOSCOPY PROXIMAL TO SPLENIC FLEXURE; Surgeon: Apoorva Wen MD; Location: MAIN ENDOSCOPY; Service: GASTROENTEROLOGY COLONOSCOPY 07/30/1998 - 07/29/1999 EXPLORATORY LAPAROTOMY [id number] HYSTERECTOMY [id number] UPPER GASTROINTESTINAL ENDOSCOPY - 07/29/1999 Medical History Medical History Date Comments Stroke Seizure Myocardial infarction 1998 Hyperlipidemia Irregular heart beat Migraine 1982 Multiple sclerosis 1970 Traumatic brain injury 4681-6089 Allergic rhinitis 4802-8369 Sinusitis 6695-6718 Difficulty talking 2016 Tooth disorder 2012 Swallowing problem 2003 Chronic bronchitis 6069-2785 Asbestosis 6172-7143 Pneumonia 2004 Gastric reflux 1987 Colitis [address] cheikh ve different diagnosis Celiac disease 2006 Malabsorption syndrome 1982 Diverticulitis [id number] Irritable bowel syndrome 1999 Renal stone 1981 History of recurrent urinary tract infection 1987 Urinary incontinence 8359-2771 Sexual dysfunction [id number] Abnormal uterine bleeding un related to menstrual cycle 9372-3008 Polycystic ovarian syndrome [address]riosis 3143-9941 Dr Nahomi ramirez d endo had traveled to other organs,hips, sp Anemia 2008 Blood transfusion, without r eported diagnosis 1981 Size J, breast total reconst uction Osteoporosis 2009 Osteomyelitis 1994 Breake of wrist had to take antibiotics Anxiety 1992-3513 do not have anxi ety or panic attacks since 2003 Psoriasis 1968-current Endometrial carcinoma Cancer - 1 990's Multiple sclerosis 11/27/[address] Citlali reeves Neurologist in [place] (Pt reported) Family History Medical History Relation Name Comments -Other cancer Father [place] 1981-? Bone ca [email or web address] Father [place] Melanoma Father [...] cancer Paternal Uncle Prashant -Unknown cancer Sister [facility] Graves' disease Sister [facility] Uterine cancer Sister [facility] Vaginal cancer Sister [facility] Relation Name Status Comments Father [place] Maternal Aunt Debbielynn Maternal Grandfather Prashant Diazp Mother [place] Paternal Aunt 1 Billysue Raji Paternal Aunt 2 Debbielynn Paternal Grandfather Demar Paternal Grandmother Hunt Paternal Uncle Prashant Sister [facility] Social History Tobacco Use Types Packs/Day Years [...] CDT Gender Identity Female 09/14/2021 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 PCP - General 09/29/15 Nomi Olea MD [address] [place] [id number] PCP - External Follow Up A 04/03/14 Pedro Comer MD [address] [facility] [address] [place] [address] PCP - External Follow Up B 04/20/14 Kimber Mendoza MD [address] [place] [id number] [email or web address] PCP - External Follow Up C Internal Medicine 11/08/21 Haresh Venegas MD [email or web address] Nurse Practitioner 10/06/15 Magnolia Holden MD [address] [place] [id number] [email or web address] Physician 10/06/15 Prince Schreiber APRN [address] [place] [phone] [email or web address] Nurse Practitioner 10/06/15 Darnell Wellington MD [address] [place] [phone] [email or web address] Physician 10/06/15 Jossue Suresh PA [address] [place] [phone] [email or web address] Physician Marine Consultant 10/06/[address] MD [address] [place] [phone] [email or web address] Physician 10/06/15 Margarita Chaves PA [address] [place] [phone] [email or web address] Physician Marine Consultant 10/06/15 Cherrie Johnson APRN [address] [place] [phone] [email or web address] Nurse Practitioner Cancer Prevention 09/16/21 Tigist Morgan MD [address] [place] [phone] [email or web address] Consulting Physician Dermatology 09/26/21 Cleopatra Al MD [address] [place] [phone] [email or web address] Consulting Physician Gynecological Oncology 12/07/16
[2024-06-04] MEDS ORDERED: PROMETHAZINE INJ 25 MG/ML AMP ONE ×2 (17:19→19:23)
[2024-06-04] MEDS ORDERED: NA CHLORIDE 0.9% 1,000 ML ONE (17:20)
[2024-06-04 17:29] LABS: Absolute Basophils 0.1 K/uL (0-0.5); Absolute Lymphocytes (CBC) 2.6 K/uL (0.7-4.9); Absolute Monocytes 0.8 K/uL (0.1-1.3); Absolute Neutrophil 9.7 K/uL (1.8-8.0); Basophils % 1.1 % (0-1.3); Eosinophils % 0.2 % (0-4.4); Hematocrit 44.2 % (36.0-45.0); Hemoglobin 14.7 g/dL (12.0-15.0); Lymphocytes % 19.5 % (15.3-44.8); MCH 28.9 pg (27.0-35.0); MCHC 33.3 g/dL (32.0-36.0); MCV 86.6 fL (80-100); MPV 8.6 fL (7.6-11.3); Monocytes % 5.9 % (3.3-12.3); Neutrophils % 73.3 % (41.7-73.7); Platelets 244 thou/uL (152-406); Red Cell Distribution Width 16.2 % (12.1-15.2)
[2024-06-04 17:42] LABS: Albumin/Globulin Ratio 0.7 (1.1-1.8); Anion Gap 12.5 mEq/L (5.0-15.0); Bilirubin Total 0.6 mg/dL (0.2-1.0); Globulin 4.6 g/dL (2.3-3.5); Potassium 3.5 mEq/L (3.5-5.1); Protein, Total 7.6 g/dL (6.4-8.2)
--- NOTE | 2024-06-04 19:21 | RAD REPORT ---
EXAMINATION: CT Abdomen Pelvis W Contrast CLINICAL INDICATION: Female, 53 years old. ABD PAIN TECHNIQUE: CT abdomen and pelvis was performed, after the administration of 95 mL Isovue-300 intraven ously, as per department protocol. Axial, sagittal and coronal reconstructions were obtained. One or more of the following dose reduction techniques were used: Automated exposure control, adjustment of the mA and kV according to patient size, and iterative reconstruction. Unless otherwise specified, incidental findings do not require dedicated imaging follow-up. COMPARISON: 05/27/2024 FINDINGS: LOWER CHEST: The visualized lung bases are clear. LIVER: Normal in size and contour. No focal lesion. BILIARY SYSTEM: No suspicious abnormalities. SPLEEN: Normal size. No focal lesion. PANCREAS: No mass, ductal dilation, or brandi-pancreatic fluid. ADRENALS: Normal; no mass. KIDNEYS: Normal size and contour. No hydronephrosis. URINARY BLADDER: Unremarkable. GASTROINTESTINAL TRACT: Short segments of mild proximal small bowel distention with air-fluid levels, with gradual transition to nondistended bowel. No evidence of free air, significant intra-abdominal free fluid, bowel obstruction or abscess. Mild stool burden along the rectum. APPENDIX: Normal appendix. LYMPH NODES: No lymphadenopathy. MUSCULOSKELETAL: No acute or suspicious osseous abnormality. ADDITIONAL FINDINGS: None. IMPRESSION: Short segments of mild proximal small bowel distention with air-fluid levels, with gradual transition to nondistended bowel, suggesting mild ileus. No other acute or concerning abnormalities seen in the abdomen or pelvis.
[2024-06-04] MEDS ORDERED: MORPHINE 2 MG/ML SYR ONE (19:23)
--- NOTE | 2024-06-04 19:25 | ER ---
Nurse's Notes [facility] Name: Lianne Medina Age: 53 yrs Sex: Female : 1970 Arrival Date: 06/04/2024 Time: 14:58 Bed 8 Private MD: Diagnosis: Ileus;Abdominal pain, Generalized Presentation: 06/04 15:15 Chief complaint: Patient states: Abdominal pain, nausea and vomiting onset yesterday. cm10 Coronavirus screen: Client denies travel out of the [place] in the last 14 days. Ebola Screen: Patient denies travel to an Ebola-affected area in the 21 days before illness onset. No symptoms or risks identified at this time. Initial Sepsis Screen: Does the patient meet any 2 criteria? HR > 90 bpm. Does the patient have a suspected source of infection? No. Patient's initial sepsis screen is negative. Risk Assessment: Do you want to hurt yourself or someone else? Patient reports no desire to harm self or others. Onset of symptoms was June 04, 2024. 15:15 Method Of Arrival: Wheelchair cm10 15:15 Acuity: BRANDEN 3 cm10 Triage Assessment: 15:17 General: Appears in no apparent distress. uncomfortable, Behavior is calm, cooperative. cm10 Neuro: No deficits noted. Level of Consciousness is awake, alert, obeys commands, Oriented to person, place, time, situation, Appropriate for age. Respiratory: No deficits noted. Airway is patent Respiratory effort is even, unlabored, Respiratory pattern is regular, symmetrical. 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: 19:30 unknown al5 Historical: - Allergies: 15:16 Benadryl; makes her RLS bad; cm10 15:16 Celecoxib; cm10 15:16 cyclobenzaprine HCl; cm10 15:16 CYCLOSPORINE; cm10 15:16 divalproex; cm10 15:16 Fentanyl; cm10 15:16 levetiracetam; cm10 15:16 Lorazepam; cm10 15:16 Metoclopramide; cm10 15:16 PENICILLINS; cm10 15:16 PENTAZOCINE; cm10 15:16 Phenytoin; cm10 15:16 Prochlorperazine; cm10 15:16 Sulfa (Sulfonamide Antibiotics); cm10 15:16 TETRACYCLINES; cm10 15:16 Tizanidine; cm10 15:16 Toradol; cm10 15:16 tramadol; cm10 - PMHx: 15:16 brain aneurysm; brain tumor x 5; Cancer; Hernia; Multiple Sclerosis; prolapsed bladder; cm10 - Immunization history:: Adult Immunizations up to date. - Infectious Disease History:: Denies. - Social history:: Smoking status: Patient reports the use of cigarette tobacco products, smokes one pack cigarettes per day. Screenin:50 [facility] ED Fall Risk Assessment (Adult) History of falling in the last 3 months, bp including since admission No falls in past 3 months (0 pts) Confusion or Disorientation No (0 pts) Intoxicated or Sedated No (0 pts) Impaired Gait No (0 pts) Mobility Assist Device Used No (0 pt) Altered Elimination No (0 pt) Score/Fall Risk Level 0 - 2 = Low Risk. Abuse screen: Denies threats or abuse. Denies injuries from another. Nutritional screening: No deficits noted. Tuberculosis screening: No symptoms or risk factors identified. Assessment: 15:30 General: Appears distressed, Behavior is appropriate for age, agitated, anxious. Pain: bp Complains of pain in abdomen. GI: Bowel sounds present X 4 quads. Abd is soft X 4 quads. 16:48 Reassessment: Pt requesting Mid line be placed in left arm when informed that the jb4 provider was wanting to do and EJ. Provider and nurse notified. 17:30 Reassessment: No changes from previously documented assessment. Patient is alert, bp oriented x 3, equal unlabored respirations, skin warm/dry/pink. 19:05 General: Appears in no apparent distress. uncomfortable, ill, Behavior is cooperative. al5 Neuro: Level of Consciousness is awake, alert, obeys commands, Oriented to person, place, time, situation. Cardiovascular: Capillary refill < 3 seconds Patient's skin is warm and dry. Respiratory: Airway is patent Respiratory effort is even, unlabored, Respiratory pattern is regular, symmetrical. GI: Abdomen is non-distended, obese, Reports nausea, vomiting. : No signs and/or symptoms were reported regarding the genitourinary system. EENT: No signs and/or symptoms were reported regarding the EENT system. Derm: Skin is intact, is healthy with good turgor, Skin is pink, warm \T\ dry. normal. Musculoskeletal: No signs and/or symptoms reported regarding the musculoskeletal system. 20:30 Reassessment: Patient appears in no apparent distress at this time. No changes from al5 previously documented assessment. Patient and/or family updated on plan of care and expected duration. Pain level reassessed. Patient is alert, oriented x 3, equal unlabored respirations, skin warm/dry/pink. Vital Signs: 15:15 BP 151 / 108; Pulse 105; Resp 18; Temp 97.5(O); Pulse Ox 99% on R/A; Weight 72.57 kg; cm10 Height 4 ft. 11 in. ; Pain 8/10; 18:20 bp 19:05 BP 139 / 91; Pulse 97; Resp 18; Pulse Ox 98% on R/A; al5 19:30 BP 139 / 89; Pulse 93; Resp 17; Pulse Ox 94% on R/A; al5 20:30 BP 136 / 87; Pulse 91; Resp 16; Pulse Ox 96% on R/A; al5 15:15 Body Mass Index 32.32 (72.57 kg, 149.86 cm) cm10 15:15 Pain Scale: Adult cm10 18:20 PT DECLINED, STATES MONITORING UNCOMFORTABLE bp ED Course: 15:02 Patient arrived in ED. im 15:04 El Fan MD is Attending Physician. sp3 15:16 Triage completed. cm10 15:17 Arm band placed on left wrist. Patient placed in an exam room, on a stretcher. cm10 15:20 Scar Singh, RN is Primary Nurse. bp 15:43 Missed attempt(s): 24 gauge in left hand. Bleeding controlled, band aid applied, ph catheter tip intact. 16:20 Missed attempt(s): 22 gauge in right upper arm. Bleeding controlled, band aid applied, ll1 catheter tip intact. 16:47 Missed attempt(s): 18 gauge in right antecubital area. Primary nurse and provider made jb4 aware. . Bleeding controlled, band aid applied, catheter tip intact. 17:20 Nelda Rosales FNP-C is PHCP. kb 17:25 Accessed peripheral vein via ultrasound, utilizing dynamic ultrasound technique using bp 20G Nexia IV catheter ,sterile technique, per hospital protocol. Clean \T\ dry. Dressing intact. Good blood return. Flushes easily. 17:50 Patient has correct armband on for positive identification. bp 18:50 CT Abd/Pelvis - IV Contrast Only In Process Unspecified. EDMS 19:24 Prince Muñoz MD is Hospitalizing Provider. kb 19:36 No provider procedures requiring assistance completed. al5 21:32 Provided Education on: need for admission. al5 21:32 Patient admitted, IV remains in place. al5 Administered Medications: 17:23 Drug: NS 0.9% IV 1000 ml IV at 1 bolus Per protocol; to be given as a bolus over 60 bp minutes Route: IV; Rate: 1 bolus; Site: Other; 20:27 Follow up: Response: No adverse reaction; IV Status: Completed infusion; IV Intake: al5 1000ml 17:23 Drug: Promethazine IVP 12.5 mg IVP once Route: IVP; Site: left upper arm; bp 20:25 Follow up: Response: No adverse reaction; Nausea unchanged al5 17:24 Drug: Promethazine IM 12.5 mg IM once Route: IM; Site: Other; bp 20:26 Follow up: Response: No adverse reaction; Nausea unchanged al5 19:21 CANCELLED (Other Intervention Used): ondansetron 4 mg IVP once; over 2 minutes kb 19:36 Drug: morphine IVP or IV 2 mg IVP once over 4 mins Route: IVP; Infused Over: 4 mins; al5 Site: left upper arm; 20:26 Follow up: Response: No adverse reaction; Pain is unchanged, physician notified; Pain al5 is unchanged 19:36 Drug: Promethazine IVP 6.25 mg IVP once Route: IVP; Site: left upper arm; al5 20:26 Follow up: Response: No adverse reaction; Nausea unchanged al5 Medication: 19:36 VIS not applicable for this client. al5 Intake: 20:27 IV: 1000ml; Total: 1000ml. al5 Outcome: 19:24 Decision to Hospitalize by Provider. kb 21:32 Admitted to Med/surg accompanied by tech, via stretcher, room 406, with chart, al5 21:32 Condition: stable 21:32 Instructed on the need for admit, 21:33 Patient left the ED. al5 Signatures: Dispatcher [employer] EDMS Nelda Rosales, HAND WASHER-C HAND WASHER-CkMagda Denis, RN RN Chriss Garrett, RN RN jb4 Scar Singh, RN RN Ashish Thomas, RN RN ll1 El Fan MD MD sp3 Elayne Cole Clarissa RN RN cm10 Kellie Tariq, RN RN al5 Corrections: (The following items were deleted from the chart) 21:31 19:30 BP 136 / 87; Pulse 91bpm; Resp 16bpm; Pulse Ox 96% RA; al5 al5
--- NOTE | 2024-06-04 19:25 | EDPHYS ---
Physician Documentation [facility] Name: Lianne Medina Age: 53 yrs Sex: Female : 1970 Arrival Date: 06/04/2024 Time: 14:58 Bed 8 Private MD: ED Physician El Fan HPI: 06/04 15:30 This 53 yrs old Female presents to ER via Wheelchair with complaints of Abdominal Pain, sp3 Vomiting. 15:30 53-year-old female with a history of multiple sclerosis, cerebral mass/cancer history, sp3 recent abdominal complications including ileus with multiple ER visits now presents for recurrent abdominal pain in the epigastric region with concerns of recurrent obstruction or ileus. Patient is nauseated with a few episodes of emesis without blood or mucus. Patient denies fever, headache, chest pain, shortness of breath, diarrhea, back pain, rash, bleeding, syncope, near syncope, known sick contacts, travel history, or any other signs or symptoms on ROS at this time.. 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 al5 Historical: - Allergies: 15:16 Benadryl; makes her RLS bad; cm10 15:16 Celecoxib; cm10 15:16 cyclobenzaprine HCl; cm10 15:16 CYCLOSPORINE; cm10 15:16 divalproex; cm10 15:16 Fentanyl; cm10 15:16 levetiracetam; cm10 15:16 Lorazepam; cm10 15:16 Metoclopramide; cm10 15:16 PENICILLINS; cm10 15:16 PENTAZOCINE; cm10 15:16 Phenytoin; cm10 15:16 Prochlorperazine; cm10 15:16 Sulfa (Sulfonamide Antibiotics); cm10 15:16 TETRACYCLINES; cm10 15:16 Tizanidine; cm10 15:16 Toradol; cm10 15:16 tramadol; cm10 - PMHx: 15:16 brain aneurysm; brain tumor x 5; Cancer; Hernia; Multiple Sclerosis; prolapsed bladder; cm10 - Immunization history:: Adult Immunizations up to date. - Infectious Disease History:: Denies. - Social history:: Smoking status: Patient reports the use of cigarette tobacco products, smokes one pack cigarettes per day. ROS: 15:31 Constitutional: Negative for fever, chills, and weight loss, Eyes: Negative for injury, sp3 pain, redness, and discharge, ENT: Negative for injury, pain, and discharge, Neck: Negative for injury, pain, and swelling, Cardiovascular: Negative for chest pain, palpitations, and edema, Respiratory: Negative for shortness of breath, cough, wheezing, and pleuritic chest pain, Back: Negative for injury and pain, MS/Extremity: Negative for injury and deformity, Skin: Negative for injury, rash, and discoloration, Neuro: Negative for headache, weakness, numbness, tingling, and seizure, Psych: Negative for depression, anxiety, suicide ideation, homicidal ideation, and hallucinations, Allergy/Immunology: Negative for hives, rash, and allergies, Endocrine: Negative for neck swelling, polydipsia, polyuria, polyphagia, and marked weight changes, Hematologic/Lymphatic: Negative for swollen nodes, abnormal bleeding, and unusual bruising, 15:31 All other systems are negative, Exam: 15:32 Constitutional: This is a well developed, well nourished patient who is awake, alert, sp3 and in no acute distress. Head/Face: Normocephalic, atraumatic. Eyes: Pupils equal round and reactive to light, extra-ocular motions intact. Lids and lashes normal. Conjunctiva and sclera are non-icteric and not injected. Cornea within normal limits. Periorbital areas with no swelling, redness, or edema. ENT: Nares patent. No nasal discharge, no septal abnormalities noted. External auditory canals are clear. Oropharynx with no redness, swelling, or masses, exudates, or evidence of obstruction, uvula midline. Mucous membranes moist. Neck: Trachea midline, no thyromegaly or masses palpated, and no cervical lymphadenopathy. Supple, full range of motion without nuchal rigidity, or vertebral point tenderness. No Meningismus. Chest/axilla: Normal chest wall appearance and motion. Nontender with no deformity. No lesions are appreciated. Cardiovascular: Regular rate and rhythm with a normal S1 and S2. No gallops, murmurs, or rubs. Normal PMI, no JVD. No pulse deficits. Respiratory: Lungs have equal breath sounds bilaterally, clear to auscultation and percussion. No rales, rhonchi or wheezes noted. No increased work of breathing, no retractions or nasal flaring. Back: No spinal tenderness. No costovertebral tenderness. Full range of motion. Skin: Warm, dry with normal turgor. Normal color with no rashes, no lesions, and no evidence of cellulitis. MS/ Extremity: Pulses equal, no cyanosis. Neurovascular intact. Full, normal range of motion. Neuro: Awake and alert, GCS 15, oriented to person, place, time, and situation. Cranial nerves II-XII grossly intact. Motor strength 5/5 in all extremities. Sensory grossly intact. Cerebellar exam normal. Normal gait. Psych: Awake, alert, with orientation to person, place and time. Behavior, mood, and affect are within normal limits. 15:32 Abdomen/GI: Mildly distended abdomen but soft in nature. Patient is actively having emesis., Vital Signs: 15:15 BP 151 / 108; Pulse 105; Resp 18; Temp 97.5(O); Pulse Ox 99% on R/A; Weight 72.57 kg; cm10 Height 4 ft. 11 in. ; Pain 8/10; 18:20 bp 19:05 BP 139 / 91; Pulse 97; Resp 18; Pulse Ox 98% on R/A; al5 19:30 BP 139 / 89; Pulse 93; Resp 17; Pulse Ox 94% on R/A; al5 20:30 BP 136 / 87; Pulse 91; Resp 16; Pulse Ox 96% on R/A; al5 15:15 Body Mass Index 32.32 (72.57 kg, 149.86 cm) cm10 15:15 Pain Scale: Adult cm10 18:20 PT DECLINED, STATES MONITORING UNCOMFORTABLE bp MDM: 15:24 Medical Screening Exam initiated sp3 15:32 Data reviewed: vital signs, nurses notes, old medical records, lab test result(s), sp3 radiologic studies. ED course: 53-year-old female with decreased BM and abdominal pain. Consider recurrent ileus versus obstruction versus other. CT scan labs pending. Disposition pending workup and patient course.. 17:18 ED course: Phentermine changed to IM. Midline placed and CT pending. Patient will be sp3 admitted to internal medicine once workup is complete.. 06/04 15:29 Order name: CBC with Diff; Complete Time: 17:36 sp3 06/04 15:29 Order name: CMP sp3 06/04 15:29 Order name: Lipase sp3 06/04 15:29 Order name: Urinalysis w/ reflexes sp3 06/04 19:32 Order name: Lactate w/ 2H reflex if indic. EDMS 06/04 19:32 Order name: Magnesium EDMS 06/04 19:32 Order name: Phosphorus EDMS 06/04 19:32 Order name: Urinalysis w/ reflexes EDMS 06/04 19:32 Order name: CBC with Automated Diff EDMS 06/04 19:32 Order name: CBC with Automated Diff EDMS 06/04 19:32 Order name: Comprehensive Metabolic Panel EDMS 06/04 19:32 Order name: Comprehensive Metabolic Panel EDMS 06/04 19:32 Order name: Hemoglobin A1c EDMS 06/04 15:29 Order name: CT Abd/Pelvis - IV Contrast Only; Complete Time: 19:22 sp3 06/04 15:29 Order name: IV Saline Lock; Complete Time: 17:22 sp3 06/04 15:29 Order name: Labs collected and sent; Complete Time: 17:23 sp3 Administered Medications: 17:23 Drug: NS 0.9% IV 1000 ml IV at 1 bolus Per protocol; to be given as a bolus over 60 bp minutes Route: IV; Rate: 1 bolus; Site: Other; 20:27 Follow up: Response: No adverse reaction; IV Status: Completed infusion; IV Intake: al5 1000ml 17:23 Drug: Promethazine IVP 12.5 mg IVP once Route: IVP; Site: left upper arm; bp 20:25 Follow up: Response: No adverse reaction; Nausea unchanged al5 17:24 Drug: Promethazine IM 12.5 mg IM once Route: IM; Site: Other; bp 20:26 Follow up: Response: No adverse reaction; Nausea unchanged al5 19:21 CANCELLED (Other Intervention Used): ondansetron 4 mg IVP once; over 2 minutes kb 19:36 Drug: morphine IVP or IV 2 mg IVP once over 4 mins Route: IVP; Infused Over: 4 mins; al5 Site: left upper arm; 20:26 Follow up: Response: No adverse reaction; Pain is unchanged, physician notified; Pain al5 is unchanged 19:36 Drug: Promethazine IVP 6.25 mg IVP once Route: IVP; Site: left upper arm; al5 20:26 Follow up: Response: No adverse reaction; Nausea unchanged al5 Disposition Summary: 06/04/24 19:24 Hospitalization Ordered Notes: Hospitalization Status: Observation kb Provider: Prince irais Muñoz Location: Telemetry/MedSurg (observation) kb Condition: Stable kb Problem: new kb Symptoms: are unchanged kb Bed/Room Type: Standard Room Assignment: 406(06/04/24 20:17) kmf Diagnosis - Ileus kb - Abdominal pain, Generalized kb Forms: - Medication Reconciliation Form kb - SBAR form kb - Leadership Thank You Letter kb Signatures: Dispatcher [employer] EDMS Nelda Rosales, POLICE [employer]IEUTENANT [employer]CINCT-C POLICE [employer]IEUTENANT PRECINCT-Scar Phan, RN RN bp Ashish Wilcox RN RN ll1 El Fan MD MD sp3 Gabby Thomas RN RN cm10 Sneha Holguin [facility] Kellie Tariq RN RN al5 Corrections: (The following items were deleted from the chart) 19:21 19:09 Ondansetron IVP 4 mg IVP once; over 2 minutes ordered. kb kb 20:17 19:24 kb kmf
[2024-06-04] MEDS ORDERED: SODIUM CHLORIDE 0.9% 10ML INJ IV PRN (19:30)
--- NOTE | 2024-06-04 19:56 | P.HP ---
Certification for Inpatient Patient admitted to: Inpatient With expected LOS: >2 Midnights Practitioner: I am a practitioner with admitting privileges, knowledge of patient current condition, hospital course, and medical plan of care. Services: Services provided to patient in accordance with Admission requirements found in Title 42 Section 412.3 of the Code of Federal Regulations Patient History Date of Service: 06/04/24 Reason for admission: abdominal pain, nausea and vomiting History of Present Illness: Patient is a 53-year-old female with a past medical history of multiple sclerosis, IBSconstipation, diabetes mellitus complicated by gastroparesis and peripheral neuropathy, and chronic pain. She presented to the ER complaining of worsening abdominal pain which has been ongoing for a month now. She has had multiple similar admissions and was recently seen here 2 days ago. Her CAT scan was normal. She now returns with persistent abdominal pain complicated by nausea and intractable nausea and vomiting. A repeat CAT scan during this admission reveals evidence of a mild ileus. Allergies Penicillins Allergy (Severe, Verified 05/12/24 23:50) anaphalxis cyclobenzaprine HCl [From Flexeril] Allergy (Intermediate, Verified 05/12/24 23:50) sob Sulfa (Sulfonamide Antibiotics) [Sulfa(Sulfonamide Antibiotics)] Allergy (Intermediate, Verified 05/12/24 23:50) anaphalxis tramadol HCl [From Ultram] Allergy (Intermediate, Verified 05/12/24 23:50) hives, sob tetracycline [Tetracycline] Allergy (Mild, Verified 05/12/24 23:50) anaphalyxis celecoxib Allergy (Verified 05/12/24 23:50) Unknown cyclosporine Allergy (Verified 05/13/24 08:01) Anaphylaxis divalproex sodium Allergy (Verified 05/13/24 08:01) Anaphylaxis levetiracetam Allergy (Verified 05/12/24 23:50) Unknown lorazepam Adverse Reaction (Mild, Verified 05/13/24 00:35) Unknown metoclopramide [From Reglan] Adverse Reaction (Verified 05/13/24 08:01) Rash Home Medications: Atorvastatin Calcium 10 mg PO DAILY 08/04/22 Gabapentin 900 mg PO TID 08/04/22 Ondansetron [Zofran (Odt)*] 4 mg PO Q8H PRN 08/04/22 Budesonide/Glycopyr/Formoterol [Breztri Aerosphere Inhaler] 2 puff IH BID 08/21/23 Spironolactone [Aldactone*] 25 mg PO BID #60 tab 08/21/23 Tizanidine HCl 2 mg PO Q8H 08/21/23 Esomeprazole Magnesium [Nexium 24Hr] 20 mg PO BREAKFAST 11/24/23 Hydrocodone/Acetaminophen [Hydrocodone-Acetamin 7.5-325] 1 tab PO Q8HR 11/24/23 Lidocaine 4% Patch [Lidoderm 5% Patch*] 1 patch TD DAILY 11/24/23 Linaclotide [Linzess] 1 cap PO DAILY PRN 11/24/23 Nortriptyline HCl [Pamelor] 50 mg PO BEDTIME 11/24/23 Quetiapine Fumarate [Seroquel] 50 mg PO BEDTIME 11/24/23 Nystatin Powder [Mycostatin (Powder)*] 15 appl TOP BID 7 Days #1 btl 11/28/23 Albuterol Sulfate [Ventolin Hfa] 2 puff IH Q6HP PRN 02/12/24 carvediloL [Coreg] 25 mg PO BID 02/12/24 Gabapentin 300 mg PO TID 05/29/24 Erythromycin Base [Erythromycin] 250 mg PO TID 14 Days #42 tab 05/31/24 Promethazine HCl 25 mg PO Q12H 14 Days #28 tab 05/31/24 Quetiapine Fumarate [Seroquel] 25 mg PO BEDTIME 10 Days #10 tab 05/31/24 Scopolamine Hydrobromide [Transderm-Scop*] 1 pat TD Q3D@0900 #10 pat 06/02/24 Sucralfate [Carafate*] 1 gm PO ACHS #120 tab 06/02/24 - Past Medical/Surgical History Diabetic: No -: cancer -: prlapsed bladder -: brain tumor x 5 -: MS -: IBSC -: endometriosis -: Gastroparesis -: Multiple abdominal surgeriesendometriosis -: -: Breast reconstruction Psychosocial/ Personal History: Patient is disabled, lives at home with her /daughter. - Family History Father -: Hypertension Mother -: Other (see notes) Notes: thyroid problems - Social History Alcohol use: No CD- Drugs: No Caffeine use: Yes Physical Examination - Physical Exam General: Acute distress HEENT: Atraumatic, Normocephalic Respiratory: Clear to auscultation bilaterally, Normal air movement Cardiovascular: No edema, Normal pulses, Regular rate/rhythm, Normal S1 S2 Gastrointestinal: Hypoactive, Distended, Tenderness Neurological: Normal speech - Studies Laboratory Data (last 24 hrs) 06/04/24 06/04/24 17:15 17:15 WBC 13.30 H Hgb 14.7 Hct 44.2 Plt Count 244 Sodium 132 L Potassium 3.5 BUN 5 L Creatinine 0.73 Glucose 95 Total Bilirubin 0.6 AST 27 ALT 49 Alkaline Phosphatase 102 Lipase 28 Assessment and Plan - Problems (Diagnosis) (1) Epigastric abdominal pain Current Visit: No Status: Acute (2) Ileus Current Visit: No Status: Acute (3) Intractable nausea and vomiting Onset Date: 04/04/18 Current Visit: No Status: Acute (4) Multiple sclerosis Onset Date: 04/04/18 Current Visit: No Status: Acute - Plan Assessment This is a 53-year-old female well-known to this hospital. She has had multiple admissions here for intractable abdominal pain complicated by nausea and vomiting. She now returns 2 days after being discharged for abdominal pain. CT abdomen and pelvis reveals mild ileus. Patient is hemodynamically stable. She has mild leukocytosis with a WBC of 13,000. Her abdomen is tender to palpation and has decreased bowel sounds. Lactic acid pending Ileus as per CT scan Gastroparesis diet suspect Intractable nausea and vomiting Hyponatremia Multiple sclerosis Diabetes mellitus complicated by gastroparesis and peripheral neuropathy Chronic pain Plan: Will admit inpatient Bowel rest Start IV fluid infusion along with antiemetics, acid suppression therapy and promotility agents Electrolyte replacement protocol Pain control, caution with narcotics Follow lactic acid level Patient is known to Dr. Metz. Surgery will be consulted Serial AXR, physical exam I will also go ahead and consult gastroenterology. I have discussed the case with Dr. De La Torre. Will keep n.p.o. and hold off for now gastric emptying study until he evaluates the patient. Follow hemoglobin A1c Patient is full code - Advance Directives Does patient have a Living Will: No Does patient have a Durable POA for Healthcare: No
[2024-06-04] MEDS: PANTOPRAZOLE 40 MG INJ IVP SCH (21:30)
[2024-06-04] MEDS: METOCLOPRAMIDE 10 MG/2mL INJ IV PRN (21:31)
[2024-06-04] MEDS: NA CHLORIDE 0.9% 1,000 ML IV SCH (21:31)
[2024-06-04 21:46] LABS: Phosphorus 3.8 mg/dL (2.5-4.9)
[2024-06-04] MEDS: HYDROMORPHONE HCL 1 MG/ML INJ IV PRN (21:53)
[2024-06-04] MEDS: PROMETHAZINE INJ 25 MG/ML AMP IV PRN (22:04)
[2024-06-05 00:16] VITALS: BMI 32.3
[2024-06-05] MEDS: ONDANSETRON 4 MG/2 ML VIAL IV PRN (00:30)
[2024-06-05] MEDS ORDERED: ALBUTEROL INHALER 200 PUFF/6.7 GM IH PRN (02:01)
[2024-06-05 06:53] LABS: Absolute Basophils 0.1 K/uL (0-0.5); Absolute Lymphocytes (CBC) 3.7 K/uL (0.7-4.9); Absolute Neutrophil 5.9 K/uL (1.8-8.0); Basophils % 0.5 % (0-1.3); Eosinophils % 0.2 % (0-4.4); Hematocrit 34.8 % (36.0-45.0); Hemoglobin 11.8 g/dL (12.0-15.0); Lymphocytes % 34.5 % (15.3-44.8); MCH 29.5 pg (27.0-35.0); MCHC 33.8 g/dL (32.0-36.0); MCV 87.1 fL (80-100); MPV 8.3 fL (7.6-11.3); Monocytes % 9.5 % (3.3-12.3); Neutrophils % 55.3 % (41.7-73.7); Platelets 213 thou/uL (152-406); Red Cell Distribution Width 16.6 % (12.1-15.2)
[2024-06-05 07:02] LABS: Albumin 2.3 g/dL (3.4-5.0); Albumin/Globulin Ratio 0.7 (1.1-1.8); Anion Gap 9.2 mEq/L (5.0-15.0); Bilirubin Total 0.5 mg/dL (0.2-1.0); Globulin 3.3 g/dL (2.3-3.5); Potassium 3.2 mEq/L (3.5-5.1); Protein, Total 5.6 g/dL (6.4-8.2)
[2024-06-05] MEDS: FLU (Fluarix Triv) TS24-25(6MOS UP)/PF 45 MCG/0.5 ML Syringe IM ONE (07:30)
--- NOTE | 2024-06-05 08:05 | RAD REPORT ---
EXAM: XR of the abdomen HISTORY: Abdominal pain ileus COMPARISON: 06/01/2024 FINDINGS: XR of the abdomen shows a nonspecific, nonobstructive bowel gas pattern. Since prior study there has been improvement in gaseous distention/ileus. No suspicious calcifications are seen. The bones are unremarkable. IMPRESSION: Significant improvement in ileus pattern since prior study.
[2024-06-05] MEDS: LIDOCAINE 4% PATCH TD SCH (09:00)
[2024-06-05] MEDS: Budesonide/Glycopyr/Formoterol [Breztri Aerosphere Inhaler] 10.7 GM Hfa IH SCH (09:00)
[2024-06-05] MEDS: ENOXAPARIN 40 MG/0.4 ML SQ SCH (09:28)
[2024-06-05] MEDS: KCL 20 MEQ/100 mL IVPB 20 MEQ/100 ML BAG IV SCH (09:28)
--- NOTE | 2024-06-05 09:52 | P.PN ---
Date of Service: 06/05/24 Subjective: Still with abdominal pain, epigastric pain, nausea and vomiting Reports that she began having abdominal pain and nausea/vomiting 12 hours after discharge She was not able to take erythromycin at home because she was having nausea vomiting ROS: 10 point ROS as noted above, otherwise negative Physical exam GEN: Alert, oriented, NAD HEENT: Normal conjunctiva, sclera anicteric CV: Regular rate and rhythm, no edema Pulm: Nonlabored respirations on room air ABD: Soft, nontender, nondistended MSK: No joint tenderness Integumentary: No rashes Neuro: Normal speech, normal affect Vitals reviewed EGD November 2023 showed gastritis Gastric emptying study around 10 years ago reportedly was positive Assessment: Ileus Intractable nausea/vomiting-recurrent History of gastritis Reported history of gastroparesis hypoalbuminemia 2/2 decreased PO intake History of IBS-C Hypokalemia Hyponatremia Diabetes mellitus type [id number] Hypertension GERD COPD Multiple sclerosis Plan: Ileus Intractable nausea/vomiting-recurrent History of gastritis Reported history of gastroparesis N.p.o., IVF GI consulted Last gastric emptying study was over 10 years ago and reportedly positive per patient Attempted HIDA scan during last admission, patient was unable to lay flat for the required time. CT shows ileus Continue Carafate, erythematous and, twice daily PPI GI to see patient was evaluated Hypokalemia Hyponatremia On IV fluids, protocols in place hypoalbuminemia 2/2 decreased PO intake History of IBS-C Treat underlying cause, encourage oral intake when tolerating Diabetes mellitus type [id number] ACHS Accu-Chek, sliding scale insulin Hypertension GERD COPD Multiple sclerosis Continue home medications, as needed nebs DVT PPX: Lovenox Code status: Full
[2024-06-05] MEDS: INSULIN REGULAR (HUMAN) 100 UNIT/ML SQ SCH (11:30)
[2024-06-05] MEDS ORDERED: ERYTHROMYCIN BASE 250 MG TAB PO SCH (13:00)
[2024-06-05] MEDS: SUCRALFATE 1 GM TABLET PO SCH (13:00)
[2024-06-05] MEDS: ERYTHROMYCIN BASE 250 MG TAB PO SCH (13:58)
[2024-06-05] MEDS: NALOXEGOL OXALATE 12.5 MG TABLET PO SCH (15:55)
[2024-06-05] MEDS: NYSTATIN PWDR 100000 UNIT/GM TOP SCH (15:57)
[2024-06-05] MEDS: SUCRALFATE 1GM/10ML UCUP PO SCH (15:59)
[2024-06-05] MEDS: GABAPENTIN 300 MG CAP PO SCH ×2 (16:25→21:09)
[2024-06-05 18:31] LABS: Specific Gravity 1.029 (1.005-1.030); Urine Bilirubin NEGATIVE (Negative); Urine Blood Negative (Negative); Urine Clarity Clear (Clear); Urine Color Light-Yellow (Yellow); Urine Glucose NEGATIVE (Negative); Urine Ketones TRACE (Negative); Urine Microscopic Reflex YN NO UMIC; Urine Nitrite NEGATIVE (Negative); Urine Protein NEGATIVE (Negative); Urine Urobilinogen Normal (Normal)
[2024-06-05] MEDS: PANTOPRAZOLE 40 MG INJ IVP SCH (21:09)
[2024-06-05] MEDS: D5 0.45 NS 1,000 ML IV SCH (21:52)
[2024-06-06 06:37] LABS: Anion Gap 8.3 mEq/L (5.0-15.0)
[2024-06-06 06:38] LABS: Potassium 3.3 mEq/L (3.5-5.1)
--- NOTE | 2024-06-06 07:51 | RAD REPORT ---
EXAM: XR of the abdomen HISTORY: Abdominal pain ileus COMPARISON: 06/05/2024 FINDINGS: XR of the abdomen shows a nonspecific, nonobstructive bowel gas pattern. No suspicious mihaela cifications are seen. The bones are unremarkable. IMPRESSION: Unremarkable exam
[2024-06-06] MEDS: POTASSIUM 25 MEQ EFFERV TAB PO ONE (08:38)
[2024-06-06] MEDS: D5 0.45 NS 1,000 ML IV SCH (12:13)
[2024-06-06] MEDS: POTASSIUM CL SA 10 MEQ TAB PO ONE (17:15)
--- NOTE | 2024-06-06 19:43 | P.PN ---
Date of Service: 06/06/24 Subjective: Awake, continues to feel unwell reports BM this morning Reports feeling some better with naloxegol oxalate ROS: 10 point ROS as noted above, otherwise negative Physical exam GEN: AAOx3, NAD HEENT: Normal conjunctiva, sclera anicteric CV: RRR, S1 S2 present, no edema Pulm: Nonlabored respirations, Clear BBS, on room air ABD: Soft on palpation, nontender, Distended (obese) MSK: No joint tenderness Integumentary: No rashes Neuro: Normal speech, normal affect Vitals reviewed EGD November 2023 showed gastritis Gastric emptying study around 10 years ago reportedly was positive Assessment: Ileus Intractable nausea/vomiting-recurrent History of gastritis Reported history of gastroparesis hypoalbuminemia 2/2 decreased PO intake History of IBS-C Hypokalemia Hyponatremia Diabetes mellitus type [id number] Hypertension GERD COPD Multiple sclerosis Plan: Ileus Intractable nausea/vomiting-recurrent History of gastritis Reported history of gastroparesis N.p.o., IVF GI consulted Last gastric emptying study was over 10 years ago and reportedly positive per patient Attempted HIDA scan during last admission, patient was unable to lay flat for the required time. CT shows ileus Continue Carafate, erythematous and, twice daily PPI Continue naloxegol oxalate GI to see patient was evaluated Hypokalemia Hyponatremia On IV fluids, protocols in place hypoalbuminemia 2/2 decreased PO intake History of IBS-C Treat underlying cause, encourage oral intake when tolerating Diabetes mellitus type [id number] ACHS Accu-Chek, sliding scale insulin Hypertension GERD COPD Multiple sclerosis Continue home medications, as needed nebs DVT PPX: Lovenox Code status: Full
[2024-06-07 05:37] LABS: Anion Gap 8.3 mEq/L (5.0-15.0); Bicarbonate 26 mEq/L (21-32); Glomerular Filtration Rate 114 ml/min (=/>90); Glucose Level 95 mg/dL (74-106); Potassium 3.3 mEq/L (3.5-5.1); Sodium Level 135 mEq/L (136-145)
[2024-06-07 05:40] LABS: BUN Blood Urea Nitrogen < 3 mg/dL (7-18)
[2024-06-07] MEDS: KCL 20 MEQ/100 mL IVPB 100 ML IV SCH (06:07)
[2024-06-07] MEDS ORDERED: POTASSIUM CL 40 MEQ in NA CHLORIDE 0.9% 500 ML IV SCH (07:00)
--- NOTE | 2024-06-07 07:31 | RAD REPORT ---
Exam:Abdomen 1 View (KUB) Clinical history: Abdominal pain FINDINGS: The bowel gas pattern is unremarkable No significant calcification is displayed.
[2024-06-07 11:45] VITALS: O2SAT 94
--- NOTE | 2024-06-07 19:10 | P.PN ---
Date of Service: 06/07/24 Subjective: Awake, Coloring in bed Reports feeling nauseous after taking carafate tolerated chocolate pudding, will advance to FLD ROS: 10 point ROS as noted above, otherwise negative Physical exam GEN: AAOx3, NAD HEENT: Normal conjunctiva, sclera anicteric CV: Regular rate and rhythm, S1 S2 present, no edema Pulm: Nonlabored respirations, symmetrical chest wall movement, on room air ABD: Soft on palpation, nontender, Distended (obese) MSK: No joint tenderness Integumentary: No rashes Neuro: Normal speech, normal affect Vitals reviewed EGD November 2023 showed gastritis Gastric emptying study around 10 years ago reportedly was positive Assessment: Ileus Intractable nausea/vomiting-recurrent History of gastritis Reported history of gastroparesis hypoalbuminemia 2/2 decreased PO intake History of IBS-C Hypokalemia Hyponatremia Diabetes mellitus type [id number] Hypertension GERD COPD Multiple sclerosis Plan: Ileus Intractable nausea/vomiting-recurrent History of gastritis Reported history of gastroparesis N.p.o., IVF GI consulted Last gastric emptying study was over 10 years ago and reportedly positive per patient Attempted HIDA scan during last admission, patient was unable to lay flat for the required time. CT shows ileus Continue erythematous and, twice daily PPI Stopped carafate, causing nausea Continue naloxegol oxalate Hypokalemia Hyponatremia On IV fluids, protocols in place hypoalbuminemia 2/2 decreased PO intake History of IBS-C Treat underlying cause, encourage oral intake when tolerating Diabetes mellitus type [id number]-[id number] ACHS Accu-Chek, sliding scale insulin Hypertension GERD COPD Multiple sclerosis Continue home medications, as needed nebs DVT PPX: Lovenox Code status: Full
[2024-06-07] MEDS: POTASSIUM CL SA 10 MEQ TAB PO ONE (23:46)
[2024-06-08 06:17] LABS: Anion Gap 8.9 mEq/L (5.0-15.0); Bicarbonate 26 mEq/L (21-32); Glomerular Filtration Rate 106 ml/min (=/>90); Glucose Level 100 mg/dL (74-106); Potassium 3.9 mEq/L (3.5-5.1); Sodium Level 135 mEq/L (136-145)
[2024-06-08 06:19] LABS: BUN Blood Urea Nitrogen < 3 mg/dL (7-18)
[2024-06-08] MEDS: POTASSIUM CL SA 10 MEQ TAB PO ONE (08:37)
[2024-06-08 16:37] VITALS: BP 139/93; TEMP 98.1
--- NOTE | 2024-06-09 05:50 | P.DS ---
Admission Date: 06/04/24 Discharge Date: 06/08/24 Disposition: DC HOME/HOME HEALTH CARE Discharge Condition: GOOD Reason for Admission: abdominal pain, nausea and vomiting Brief History of Present Illness: Diagnosis HPI 06/04/2024 Hospital Course: [text] is a pleasant [text] with a past medical history significant for [text] who was admitted to the [facility] on [text] for [text]. [text] On [date], [text] was seen on morning rounds and deemed medically stable for discharge. [text] was discharged with instructions to schedule follow-up appointments with [text]. [text] was provided prescriptions for [text]. General: AAOx3, NAD HEENT: mucus membranes moist, nare normal Head/Neck: Normocephalic, atraumatic, neck supple Respiratory: symmetrical chest expansion, no accessory muscles used, lungs clear on ausultation Cardiac: RRR, no murmurs or gallops noted Extremities: No edema present, peripheral pulses 2+ Abdominal: soft, NT/ND Skin: warm pink and dry Neurological: clear speech, appropriate Psych: normal mood and affect, Judgement appropriate Vital Signs/Physical Exam: Temp Pulse Resp BP Pulse Ox 98.1 F 87 22 H 139/93 H 98 06/08/24 16:00 06/08/24 16:00 06/08/24 16:00 06/08/24 16:00 06/08/24 16:00 Laboratory Data at Discharge: WBC 10.60 thou/uL (4.3-10.9) 06/05/24 06:33 Hgb 11.8 g/dL (12.0-15.0) L D 06/05/24 06:33 Hct 34.8 % (36.0-45.0) L 06/05/24 06:33 Plt Count 213 thou/uL (152-406) 06/05/24 06:33 Sodium 135 mEq/L (136-145) L 06/08/24 05:35 Potassium 3.9 mEq/L (3.5-5.1) 06/08/24 05:35 BUN < 3 mg/dL (7-18) L 06/08/24 05:35 Creatinine 0.60 mg/dL (0.55-1.02) 06/08/24 05:35 Glucose 100 mg/dL (74-106) 06/08/24 05:35 Phosphorus Cancelled 06/04/24 Unknown Magnesium Cancelled 06/04/24 Unknown Total Bilirubin 0.5 mg/dL (0.2-1.0) 06/05/24 06:33 AST 23 U/L (15-37) 06/05/24 06:33 ALT 36 U/L (13-56) 06/05/24 06:33 Alkaline Phosphatase 74 U/L (45-117) D 06/05/24 06:33 Lipase 28 U/L (13-75) 06/04/24 17:15 Home Medications: Atorvastatin Calcium 10 mg PO DAILY 08/04/22 Gabapentin 900 mg PO TID 08/04/22 Ondansetron [Zofran (Odt)*] 4 mg PO Q8H PRN 08/04/22 Budesonide/Glycopyr/Formoterol [Breztri Aerosphere Inhaler] 2 puff IH BID 08/21/23 Spironolactone [Aldactone*] 25 mg PO BID #60 tab 08/21/23 Tizanidine HCl 2 mg PO Q8H 08/21/23 Esomeprazole Magnesium [Nexium 24Hr] 20 mg PO BREAKFAST 11/24/23 Hydrocodone/Acetaminophen [Hydrocodone-Acetamin 7.5-325] 1 tab PO Q8HR 11/24/23 Lidocaine 4% Patch [Lidoderm 5% Patch*] 1 patch TD DAILY 11/24/23 Nortriptyline HCl [Pamelor] 50 mg PO BEDTIME 11/24/23 Quetiapine Fumarate [Seroquel] 50 mg PO BEDTIME 11/24/23 Albuterol Sulfate [Ventolin Hfa] 2 puff IH Q6HP PRN 02/12/24 carvediloL [Coreg] 25 mg PO BID 02/12/24 Ibuprofen 400 mg PO Q4H PRN 06/04/24 Nystatin Powder [Mycostatin (Powder)*] 15 appl TOP BID 06/04/24 Promethazine HCl 25 mg PO Q12H PRN 06/04/24 Erythromycin Base [Erythromycin] 250 mg PO TID 14 Days #42 tab 06/08/24 Naloxegol Oxalate [Movantik] 12.5 mg PO DAILY 30 Days #30 tab 06/08/24 New Medications: Erythromycin Base [Erythromycin] 250 mg PO TID 14 Days #42 tab Naloxegol Oxalate [Movantik] 12.5 mg PO DAILY 30 Days #30 tab Physician Discharge Instructions: Follow-up with a motility specialistDr. De La Torre recommends Dr. Joan Lawler ([phone]) Could also discuss new medication [facility] down the line if GI/motility specialist deem this a good option. Home Health: [facility] P:[phone] F:[phone] Efax:[phone] New medications Erythromycin 250 TID x 14 days Movantik 12.5 mg daily x 30 days Stop medications Linzess Mounjaro Carafate Diet: Soft GI Activity: Fall precautions Followup: Wilbur Oliveira DO [Primary Care Provider] -
== END 2024-06-08 18:30 | disposition home health service (06) | DRG 389 ==
LOC: ER 14:58 → ERHOLD 19:28 → 4TH 21:05
PROVIDERS: ADMIT Internal Medicine; ATTEND Hospitalist
DX: K56.7 Ileus, unspecified (principal); E87.1 Hypo-osmolality and hyponatremia; G35 Multiple sclerosis; Z88.8 Allergy status to other drugs, medicaments and biological substances; Z88.5 Allergy status to narcotic agent; Z88.0 Allergy status to penicillin; Z88.2 Allergy status to sulfonamides; Z88.1 Allergy status to other antibiotic agents; F17.210 Nicotine dependence, cigarettes, uncomplicated; E11.42 Type 2 diabetes mellitus with diabetic polyneuropathy; K59.00 Constipation, unspecified; E88.09 Other disorders of plasma-protein metabolism, not elsewhere classified; E87.6 Hypokalemia; J44.9 Chronic obstructive pulmonary disease, unspecified
CPT/HCPCS: 36415; 74018; 74177; 80048; 80053; 81003; 82947; 83036; 83605; 83690; 83735; 84100; 84132; 85025; 96361; 96372; 96374; 96375; 99285; J1171; J1650; J2270; J2405; J2470; J2550; J2765; J3480; J7030; J7799; Q9967